=== PATIENT | female | born 1945 | race Caucasian/White ===

== ENCOUNTER 2020-03-15 13:31 | Outpatient (CLI) | payer MEDICARE, SELFPAY ==
[2020-03-15 13:48] LABS: Basophils Absolute Auto 0.1 K/mm3 (0.0-0.1); Eosinophils Absolute Auto 0.2 K/mm3 (0-0.3); Eosinophils Percent Auto 3.7 % (0-4.4); Hematocrit 44.9 % (37.0-47.0); Hemoglobin 14.1 g/dL (12.0-15.0); Immature Granulocyte Absolute 0.04 K/mm3 (0.00-0.031); Immature Granulocyte Percent A 0.8 % (0-0.5); Lymphocytes Absolute Auto 1.31 K/mm3 (0.9-3.2); Lymphocytes Percent Auto 26.6 % (18.3-44.2); Mean Corpuscular HGB Conc 31.4 g/dl (32-36); Mean Corpuscular Hemoglobin 29.4 pg (26-34); Mean Corpuscular Volume 93.7 fl (80-100); Monocytes Absolute Auto 0.5 K/mm3 (0.1-0.6); Monocytes Percent Auto 9.7 % (2.6-8.5); Neutrophils Absolute Auto 2.9 K/mm3 (1.3-6.7); Neutrophils Percent Auto 58.2 % (45.5-73.1); Platelet Count Result 152 k/mm3 (150-375); Red Blood Count 4.79 M/mm3 (4.2-5.4); White Blood Count 4.9 K/mm3 (4.5-10.0)
== END 2020-03-15 13:32 | disposition home or self-care (01) ==
LOC: ANHLAB 13:33
PROVIDERS: PCP Internal Medicine; Visit Provider Internal Medicine Hematology & Oncology
DX: K74.60 Unspecified cirrhosis of liver (principal)
CPT/HCPCS: 36415; 85025

== ENCOUNTER 2023-04-23 14:16 | Outpatient (CLI) | payer MEDICARE, SELFPAY ==
[2023-04-23 14:33] LABS: Basophils Percent Auto 0.6 % (0.2-1.2); Eosinophils Absolute Auto 0.1 K/mm3 (0-0.3); Hematocrit 44.7 % (37.0-47.0); Hemoglobin 14.1 g/dL (12.0-15.0); Immature Granulocyte Absolute 0.02 K/mm3 (0.00-0.031); Immature Granulocyte Percent A 0.4 % (0-0.5); Immature Platelet Fraction Pct 2.5 % (0.9-11.2); Lymphocytes Absolute Auto 0.68 K/mm3 (0.9-3.2); Lymphocytes Percent Auto 13.9 % (18.3-44.2); Mean Corpuscular HGB Conc 31.5 g/dl (32-36); Mean Corpuscular Hemoglobin 30.5 pg (26-34); Mean Corpuscular Volume 96.5 fl (80-100); Mean Platelet Volume 9.2 fl (7.4-10.4); Monocytes Absolute Auto 0.4 K/mm3 (0.1-0.6); Monocytes Percent Auto 7.2 % (2.6-8.5); Neutrophils Absolute Auto 3.8 K/mm3 (1.3-6.7); Neutrophils Percent Auto 76.9 % (45.5-73.1); Platelet Count Result 121 k/mm3 (150-375); Red Blood Count 4.63 M/mm3 (4.2-5.4); Red Cell Distribution Width 14.1 % (11.5-14.5); White Blood Count 4.9 K/mm3 (4.5-10.0)
[2023-04-23 14:36] LABS: Blood Urea Nitrogen 17 mg/dL (8-26); Carbon Dioxide 23 mmol/L (22-30); Chloride 103 mmol/L (98-109); Estimated Glomerular Filt Rate > 60; Glucose 122 mg/dL (70-105); Potassium 4.2 mmol/L (3.5-4.9); Sodium 141 mmol/L (138-146)
[2023-04-23 16:35] LABS: Alanine Aminotransferase 36 U/L (6-35); Alkaline Phosphatase 79 U/L (38-126); Anion Gap 7 mmol/L (8-16); Aspartate Amino Transferase 42 U/L (14-36); Bilirubin,Total 0.8 mg/dL (0.2-1.3); Blood Urea Nitrogen 18 mg/dL (7-17); Calcium 9.3 mg/dL (8.4-10.2); Carbon Dioxide 24 mmol/L (22-30); Chloride 106 mmol/L (98-107); Estimated Glomerular Filt Rate > 60; Glucose 125 mg/dL (65-110); Potassium 4.2 mmol/L (3.4-5.0); Sodium 137 mmol/L (137-145)
== END 2023-04-23 14:17 | disposition home or self-care (01) ==
LOC: ANHLAB 14:19
PROVIDERS: PCP Internal Medicine; Visit Provider Internal Medicine Hematology & Oncology
DX: D69.59 Other secondary thrombocytopenia (principal)
CPT/HCPCS: 36415; 80047; 80053; 85025; 85055

== ENCOUNTER 2023-12-10 08:28 | Outpatient (CLI) | payer MEDICARE, SELFPAY ==
[2023-12-10 08:53] LABS: Basophils Percent Auto 0.8 % (0.2-1.2); Eosinophils Absolute Auto 0.1 K/mm3 (0-0.3); Eosinophils Percent Auto 2.9 % (0-4.4); Hematocrit 43.6 % (37.0-47.0); Hemoglobin 13.7 g/dL (12.0-15.0); Immature Granulocyte Absolute 0.02 K/mm3 (0.00-0.031); Immature Granulocyte Percent A 0.4 % (0-0.5); Lymphocytes Absolute Auto 1.49 K/mm3 (0.9-3.2); Lymphocytes Percent Auto 30.4 % (18.3-44.2); Mean Corpuscular HGB Conc 31.4 g/dl (32-36); Mean Corpuscular Hemoglobin 31.2 pg (26-34); Mean Corpuscular Volume 99.3 fl (80-100); Mean Platelet Volume 9.1 fl (7.4-10.4); Monocytes Absolute Auto 0.4 K/mm3 (0.1-0.6); Monocytes Percent Auto 8.8 % (2.6-8.5); Neutrophils Absolute Auto 2.8 K/mm3 (1.3-6.7); Neutrophils Percent Auto 56.7 % (45.5-73.1); Platelet Count Result 155 k/mm3 (150-375); Red Blood Count 4.39 M/mm3 (4.2-5.4); Red Cell Distribution Width 13.8 % (11.5-14.5); White Blood Count 4.9 K/mm3 (4.5-10.0)
[2023-12-10 08:55] LABS: Blood Urea Nitrogen 21 mg/dL (8-26); Carbon Dioxide 21 mmol/L (22-30); Chloride 109 mmol/L (98-109); Estimated Glomerular Filt Rate 53; Glucose 155 mg/dL (70-105); Ionized Calcium (POC) 1.19 mmol/L (1.11-1.31); Potassium 4.4 mmol/L (3.5-4.9); Sodium 141 mmol/L (138-146)
[2023-12-10 09:58] LABS: Alanine Aminotransferase 37 U/L (6-35); Albumin Level 3.9 g/dL (3.5-5.1); Alkaline Phosphatase 62 U/L (38-126); Anion Gap 10 mmol/L (4-12); Aspartate Amino Transferase 43 U/L (14-36); Bilirubin,Total 0.6 mg/dL (0.2-1.3); Blood Urea Nitrogen 22 mg/dL (7-17); Carbon Dioxide 21 mmol/L (22-30); Chloride 108 mmol/L (98-107); Estimated Glomerular Filt Rate 60; Glucose 151 mg/dL (65-110); Potassium 4.3 mmol/L (3.4-5.0); Sodium 139 mmol/L (137-145)
== END 2023-12-10 08:29 | disposition home or self-care (01) ==
LOC: ANHLAB 08:29
PROVIDERS: PCP Internal Medicine; Visit Provider Internal Medicine Hematology & Oncology
DX: D69.59 Other secondary thrombocytopenia (principal)
CPT/HCPCS: 36415; 80047; 80053; 85025; 85055

== ENCOUNTER 2024-02-27 10:00 | Outpatient (RCR) | payer MEDICARE, SELFPAY ==
--- NOTE | 2024-01-02 12:48 | OPREHPOC ---
Outpatient Therapy Plan of Care This is a Multidisciplinary Plan of Care that may contain components documented by all disciplines (PT, OT, and ST.) PT Problem 1 PT Problem #1 Knowledge Deficit PT Goal 1 Goal / Goal Update Cannon with HEP Target Visit 4 PT Goal 2 Goal / Goal Update Report no pain greater than 3/10 for 2 consecutive weeks Target Visit 8 PT Problem 2 PT Problem #2 Impaired Range of Motion PT Goal 1 Goal / Goal Update Achieve 160 degrees of right shoulder flexion to improve functional reach Target Visit 8 PT Goal 2 Goal / Goal Update Improve R shoulder external rotation to 80 degrees to improve functional dressing and self care Target Visit 8 PT Problem 3 PT Problem #3 Impaired Strength PT Goal 1 Goal / Goal Update Improve right shoulder flexion strength to 4/5 to improve active reaching ability Target Visit 8 PT Goal 2 Goal / Goal Update Improve right shoulder external rotation strength to 4/5 to improve shoulder stability for ADL performance Target Visit 8
--- NOTE | 2024-01-02 12:48 | PTOPEVAL1 ---
Assessment and note entered by Guillermo Moore, PT Evaluation Information Assessment Status Evaluation Diagnosis Primary OA of right shoulder ICD-10 Condition Codes (PT) M25.511 Onset July 2023 Subjective Information Reports that she had a fall back in May but unsure if that is what caused shoulder pain. She is right handed. She gets pain all the time and has pain all the way into the elbow. Uses a CPAP and has to sleep on her left side. Having a lot of trouble doing anything in which she has to reach overhead. Feels a lot of popping and pain in the shoulder when reaching and lifting. Pain with dressing. Reported Pain Level Pain Score 3: Self Report Assessment PT Clinical Summary Patient presents with signs and symptoms consistent with progressive shoulder OA limiting active reach and gross ROM. Weakness noted throughout functional mobility and pain elicited with multidirectional motion. Patient will benefit form skilled therapy to address motion disability and improve functional strength. Plan of Care Interventions Hot Pack/Cold Pack,Manual Therapy,Neuro Re- education,Therapeutic Activities,Therapeutic Exercise PT Services Indicated Yes Treatment Frequency and 2x/week for 8 visits Duration These treatments will address the objective and functional deficits as defined above. The patient will be advanced safely and appropriately in order for the patient to progress towards his/her prior level of function. Additional exercises will be introduced and as well as a comprehensive home exercise program upon discharge, if needed, ?to ensure carryover of functional gains achieved in the clinic. This treatment plan has been reviewed and agreement upon by the patient.
--- NOTE | 2024-01-09 14:20 | PCPTNOTE ---
Pt. did not show for therapy this date. Called pt. and pt. reported she forgot she had therapy this date with family in town.
--- NOTE | 2024-01-28 11:29 | PCPTNOTE ---
Patient canceled therapy this date stating she will be out of town.
--- NOTE | 2024-02-17 08:39 | PCPTNOTE ---
Patient called to cancel therapy due to weather this date.
--- NOTE | 2024-02-27 10:42 | OPREHPOC ---
Outpatient Therapy Plan of Care This is a Multidisciplinary Plan of Care that may contain components documented by all disciplines (PT, OT, and ST.) PT Problem 1 PT Problem #1 Knowledge Deficit PT Goal 1 Goal / Goal Update Starr with HEP Target Visit 4 Progress Met PT Goal 2 Goal / Goal Update Report no pain greater than 3/10 for 2 consecutive weeks Target Visit 8 Progress Not Met PT Problem 2 PT Problem #2 Impaired Range of Motion PT Goal 1 Goal / Goal Update Achieve 160 degrees of right shoulder flexion to improve functional reach Target Visit 8 Progress Partially Met PT Goal 2 Goal / Goal Update Improve R shoulder external rotation to 80 degrees to improve functional dressing and self care Target Visit 8 Progress Not Met PT Problem 3 PT Problem #3 Impaired Strength PT Goal 1 Goal / Goal Update Improve right shoulder flexion strength to 4/5 to improve active reaching ability Target Visit 8 Progress Not Met PT Goal 2 Goal / Goal Update Improve right shoulder external rotation strength to 4/5 to improve shoulder stability for ADL performance Target Visit 8 Progress Not Met
--- NOTE | 2024-02-27 10:42 | PTOPDC ---
Assessment and note entered by Guillermo Moore, PT Discharge Information Assessment Status Discharge Diagnosis Primary OA of right shoulder ICD-10 Condition Codes (PT) Pain in right shoulder M25.511 Onset July 2023 Subjective Information Reports that overall, she has not seen immense improvement in her shoulder pain. Followed up with MD again and they discussed that she does have severe OA of shoulder and was not optimistic that it would help. She is aware of exercises that she can do to work the stability of the shoulder while avoiding painful motions. Reported Pain Level Pain Score 2: Self Report Assessment PT Clinical Summary Patient has seen some minimal improvement tin ROM. At this time with motion and palpation. Significant arthritis is present limiting continued functional ROM. Patient is to be discharged at this time with anticipation of moving forward with orthopedic surgery. Plan of Care PT Services Indicated Yes
== END 2024-02-27 11:17 | disposition home or self-care (01) ==
LOC: ANHGOSHPT 10:00
PROVIDERS: PCP Internal Medicine; Visit Provider Orthopaedic Surgery
DX: M19.011 Primary osteoarthritis, right shoulder (principal)
CPT/HCPCS: 97014; 97110; 97140; 97161; G0283

== ENCOUNTER 2024-03-10 14:59 | Outpatient (CLI) | payer MEDICARE, SELFPAY ==
--- NOTE | ~2024-03-10 | CT_ITS ---
EXAMINATION: CT shoulder RT wo con DATE: 03/10/2024 15:45 INDICATION: Right shoulder osteoarthritis. Preoperative planning. TECHNIQUE: Computed tomography (CT) of the right shoulder was performed without intravenous contrast. Automated exposure control and iterative reconstruction technique were employed. The dose-length pro duct was 691.66 mGy-cm. COMPARISON: Right shoulder radiographs 11/11/2023 FINDINGS: Bone alignment is normal. No fracture. There is severe osteoarthritis of glenohumeral joint including bone volume loss of the glenoid. There is a large glenohumeral joint effusion with loose b odies. There is severe acromioclavicular joint osteoarthritis. IMPRESSION: 1. Severe osteoarthritis of glenohumeral joint and acromioclavicular joint. 2. Large glenohumeral joint effusion with loose bodies. Reviewed, dictated and finalized at location A. [facility]
--- OUTSIDE RECORDS SUMMARY | 2024-03-10 15:52 | XMS_ITS | Continuity of Care Document ---
Author Organization [facility] Address [address] [place] [address] [address] [place] [address] Phone Care Team Providers Care Usability Engineer Name Role Phone Jurgen Diallo Unavailable Unavailable Procedures Procedure Date Post-op Follow-up Visit Post-op Follow-up Visit Remove Cataract, Insert Lens Eye Exam, New Patient Echo Exam Of Eye Advance Directives Directive Yes / No Effective Date File Name No Information Encounters Encounter Description Practice Location Reason(s) For Visit Diagnoses Date Provider Providers Copied on Encounter [facility], [address] [place] [address] [address], [place], [place], [id number], tel:[phone] [facility] No Information [address] Seaman. [address] [place] [address] , [address], [place], [place], [facility], . tel:[phone] Referring Provider: Fernie Byers, [address] [place] [address], [facility]. tel:[phone] [facility], [address] [place] [address] [address], [place], [place], [id number], tel:[phone] [facility] No Information [address] Se[address]. [address] [place] [address] , [address], [place], [place], [facility], [place]. tel:[phone] Referring Provider: Fernie Byers, [address] [place] [address], [facility]. tel:[phone] [facility], [address] [facility] [address], [place], [place], [id number], tel:[phone] [facility] No Information [facility] Edward. [address] [facility] , [address], [place], [place], [facility], . tel:[phone] Referring Provider: Fernie Byers, [address] [place] [address], [facility]. tel:[phone] [facility], [address], [place], [place], [id number], tel:[phone] [facility] No Information [facility] [place] [facility] , [address], [place], [place], [facility], . tel:[phone] Referring Provider: Fernie Byers, [address] [place] [address], [facility]. tel:[phone] Family History Family Member Type Diagnosis Age At Onset No Information Payers Payer name Insurance type Covered green party ID Authoriza tion(s) No Information Social History [...]
--- OUTSIDE RECORDS SUMMARY | 2024-03-10 15:52 | XMS_ITS | Referral Summary ---
Author Organization [facility] Address [address] [place] [address] Care Team Providers Care Breastfeeding Program Coordinator Name Role Phone Soy Joyce MD Primary Care Provider Source Comments [facility],non-owned Affiliates and Associated Physician Practices is amultiple site organization consisting of ambulatory clinics and hospital sitesin [place], [place], [place] and [place]. This disclosure is being madepursuant to the Care Everywhere program and may not contain all information available regarding this patient. 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) ; Metabolic dysfunction-associated steatohepatitis (MASH); Liver lesion 03/04/2024 Travel 03/04/2024 11:00 AM EQUIPMENT TECHNICIAN Office Visit [facility] - [place] [address] [facility], [place] [address] Anastasia Gandhi APRN-CNP 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 Alwaysverify current medications with the patient. Medication Sig Dispensed Refills Start Date End Date Status levothyroxine (SYNTHROID) 150 MCG tablet Take 100 mcg by mouth daily before breakfast 06/12/2020 Active venlafaxine XR 24hr (EFFEXOR XR) 75 MG capsule venlafaxine ER 75 mg capsule,extended release 24 hr TAKE 1 CAPSULE BY MOUTH EVERY DAY. CONTACT CLINIC IF CHANGE IN MOOD OR BEHAVIOR. NO ALCOHOL DRIVING OR WITH SEDATING MEDICATIONS Active rosuvastatin (Crestor) 20 MG tablet Take 1 (one) tablet by mouth once daily 03/31/2021 Active diclofenac sodium EC (Voltaren) 75 MG tablet Take 1 (one) tablet by mouth 2 times daily Active Multiple Vitamins-Mineral s (WOMENS MULTI VITAMIN & MINERAL PO) Take by mouth once daily Active olmesartan (Benicar) 5 MG tablet Take 1 (one) tablet by mouth once daily 12/30/2023 Active Ozempic, 1 MG/DOSE, 4 MG/3ML pen Inject 1 (one) mg subcutaneously every 7 days 11/24/2023 Active levothyroxine (Synthroid) 100 MCG tablet Take 1 (one) tablet by mouth once daily Active CRANBERRY PO Take 500 mg by mouth once daily Active metoprolol succinate XL 24hr (TOPROL XL) 25 MG tablet Take 2 (two) tablets by mouth once daily 5 Discontinue d(List Clean-Up) Multiple Vitamin (MULTIVITAMIN ADULT PO) Take 1 tablet by mouth once daily 5 Discontinue d(List Clean-Up) albuterol HFA (Proventil; Ventolin; Proair) 108 (90 Base) MCG/ACT inhaler INL 2 PFS PO Q 4 H PRN 5 Discontinue d(List Clean-Up) Ozempic, 0.25 or 0.5 MG/DOSE, 2 MG/1.5ML pen Inject 0.5 (one-half) mg subcutaneously every 7 days 03/11/2022 5 Discontinue d(List Clean-Up) LORazepam (Ativan) 0.5 MG tablet Take 1 (one) tablet by mouth every 8 hours as needed for Anxiety 5 Discontinue d(List Clean-Up) acetaminophen (Tylenol) 500 MG tablet Take 1 (one) tablet by mouth as needed for Fever or Pain Maximum allowable Acetaminophen amount = 4 Grams (4000 mg) / 24 hours. 5 Discontinue d(List Clean-Up) Esomeprazole Magnesium (NEXIUM PO) Take by mouth as needed Discontinue d(List Clean-Up) Cholecalciferol (vitamin D3) 1.25 MG (79165 UT) capsule Take 1 (one) capsule by mouth once daily 5 Discontinue d(List Clean-Up) cyclobenzaprine (Flexeril) 10 MG tablet Take 1 (one) tablet by mouth once daily as needed for Muscle Spasms 5 Discontinue d(List Clean-Up) lisinopril (Prinivil; Zestril) 2.5 MG tablet Take 1 (one) tablet by mouth once daily 5 Discontinue d(List Clean-Up) predniSONE (Deltasone) 10 MG tablet Take 1 (one) tablet by mouth 2 times daily 08/26/2023 5 Discontinue d(List Clean-Up) montelukast (Singulair) 10 MG tablet Take 1 (one) tablet by mouth once daily 5 Discontinue d(List Clean-Up) Active Problems Problem Noted Date Diagnosed Date 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/10/2021 Overview (11/20/2021): 10/11/22 Fibroscan CAP 293, LSM 27.0 kPa Cataract 05/10/2021 Deep venous thrombosis 05/10/2021 Diabetes mellitus 05/10/2021 Hypercholesterolemia 05/10/2021 Venous insufficiency 06/18/2018 Obstructive sleep apnea syndrome 05/19/2018 Arthritis 02/16/2018 Gastroesophageal reflux disease 11/06/2017 Hypothyroidism 11/06/2017 Primary hypertension 07/23/2017 Anxiety 06/06/2017 Chronic depression 01/30/2016 Social History Tobacco Use Types Packs/Day Years Used Date Smoking Tobacco: Never Smokeless Tobacco: Never Tobacco Cessation:Counseling Given: Not Answered Alcohol Use Standard Drinks/Week Comments Never 0 (1 standard drink = 0.6 oz pur e alcohol) Sex and Gender Information Value Date Recorded Sex Assigned at Not on file Gender Identity Not on file Sexual Orientation Not on file Last Filed Vital Signs Vital Sign Reading Time Taken Comments Blood Pressure 133/72 03/04/2024 10:58 AM EQUIPMENT TECHNICIAN Pulse 92 03/04/2024 10:58 AM EQUIPMENT TECHNICIAN Temperature 37.2 ??C (99 ??F) 03/04/2024 10: 58 AM EQUIPMENT TECHNICIAN Respiratory Rate 18 02/13/2023 10:1 3 AM EQUIPMENT TECHNICIAN Oxygen Saturation 95% 03/04/2024 10: 58 AM EQUIPMENT TECHNICIAN Inhaled Oxygen Concentration - - Weight 100.1 kg (220 lb 9.6 oz) 10:58 AM EQUIPMENT TECHNICIAN Height 165.1 cm (5' 5 ) 03/04/2024 10:5 8 AM EQUIPMENT TECHNICIAN Body Mass Index 36.71 03/04/2024 10:58 AM EQUIPMENT TECHNICIAN Plan of Treatment Not on file Goals Goal Patient Goal Type Associated Problems Recent Progress Patient-Stated? Author Medication Management General On track( 10:55 AM EQUIPMENT TECHNICIAN) No Lana Shultz, RN Note: Expected end date: Ongoing Interventions: Take all medications as prescribed Let your doctor know right away about any changes in your medications Make sure to request a refill of your medication at least one week prior to your last dose Safety General On track( 11:03 AM EQUIPMENT TECHNICIAN) No Neida Javed RN Note: Expected end date: ongoing Interventions: Your nurse will assess your risk for falls/injury each visit Use appropriate and safe transfer methods Make sure appropriate safety devices are available and within reach Be aware of medications that could predispose you to falling Wear non-skid/rubber sole footwear Wear glasses/hearing aid Keep personal items within easy reach Keep walking paths clutter free and clear Maintain an unobstructed path to the bathroom Procedures Procedure Name Priority Date/Time Associated Diagnosis Comments PT-INR [facility] Routine 03/04/2024 12:25 PM EQUIPMENT TECHNICIAN 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) Liver lesion COMPREHENSIVE METABOLIC PANEL Routine 03/04/2024 12:25 PM EQUIPMENT TECHNICIAN 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) Liver lesion CBC W AUTO DIFFERENTIAL Routine 03/04/2024 12:25 PM EQUIPMENT TECHNICIAN 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) Liver lesion ALPHA FETOPROTEIN BLOOD TUMOR MARKER Routine 03/04/2024 12:25 PM EQUIPMENT TECHNICIAN 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) Thrombocytopenia, unspecified (HCC) Metabolic syndrome US ABDOMEN LIMITED Routine 03/04/2024 10 :33 AM EQUIPMENT TECHNICIAN 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) MICROALB/CREAT RATIO URINE (EXTERNAL RESULT ENTRY) Routine 11/27/2022 9:45 AM CDT HEMOGLOBIN A1C (EXTERNAL RESULT ENTRY) Routine 11/27/2022 9:45 AM CDT from Last 3 Months or Most Recently Relevant to Health Maintenance Results * PT-INR [facility] (03/04/2024 12:25 PM EQUIPMENT TECHNICIAN) PT 13.6 12.1 - 14.8 Seconds 03/04/2024 12:59 PM [facility] INR 1.1 See Comment 03/04/2024 12:59 PM [facility] Comment:The suggested therap eutic range for standard coumadin (warfarin) therapy is an INR of 2.0-3.0. For high-risk patients (Mechanical Mitral Valve Prosthesis, etc.), the suggested prophylactic therapeutic range is an INR of 2.5-3.5. Blood BLOOD SPECIMEN / Unknown Lab Venipuncture / Unknown 03/04/2024 12:25 PM EQUIPMENT TECHNICIAN 03/04/2024 12:34 PM EQUIPMENT TECHNICIAN Anastasia Gandhi [facility] COAGU LATION ORDERABLES Performing Organization Address [facility]/ZIP Co de Phone Number [address] [address], [facility] [phone] * ALPHA FETOPROTEIN BLOOD TUMOR MARKER (03/04/2024 12:25 PM EQUIPMENT TECHNICIAN) [facility] Alpha-Fetoprote in Tumor Marker 6.7 <=8.3 ng/mL 03/04/2024 1:22 PM [facility] Comment: AFP values will vary depending on testing procedure used. Results are not comparable across different methods. AFP values obtained by [facility] using an Holland Alinity Immunoassay. Blood BLOOD SPECIMEN / Unknown Lab Venipuncture / Unknown 03/04/2024 12:25 PM EQUIPMENT TECHNICIAN 03/04/2024 12:32 PM EQUIPMENT TECHNICIAN [facility]ast[facility] CHEMI STRY ORDERABLES Performing Organization Address [facility] Co de Phone Number [address] [address], [facility] [phone] * (ABNORMAL) CBC WITH DIFFERENTIAL (03/04/2024 12:25 PM EQUIPMENT TECHNICIAN) [facility] WBC 5.5 4.0 - 10.7 x10E9/L 03/04/2024 12:39 PM EQUIPMENT TECHNICIAN [facility] RBC Count 4.76 3.90 - 5.20 x10E12/L 03/04/2024 12:39 PM [facility] Hemoglobin 14.6 11.9 - 15.8 g/dL 03/04/2024 12:39 PM [facility] Hematocrit 45.8 34.8 - 46.1 % 03/04/2024 12:39 PM [facility] MCV 96.2 80.0 - 98.0 fL 03/04/2024 12:39 PM [facility] MCH 30.7 26.7 - 33.6 pg 03/04/2024 12:39 PM [facility] MCHC 31.9 31.7 - 36.3 g/dL 03/04/2024 12:39 PM [facility] RDW-CV 13.7 11.3 - 14.8 % 03/04/2024 12:39 PM [facility] Platelet Count 149(L) 150 - 420 x10E9/L 03/04/2024 12:39 PM [facility] MPV 9.4 7.8 - 11.4 fL 03/04/2024 12:39 PM [facility] Neutrophil % 60.8 41.0 - 74.0 % 03/04/2024 12:39 PM [facility] Lymphocyte % 26.5 17.0 - 47.0 % 03/04/2024 12:39 PM [facility] Monocyte % 9.6 3.0 - 11.0 % 03/04/2024 12:39 PM [facility] Eosinophil % 2.2 0.0 - 7.0 % 03/04/2024 12:39 PM [facility] Basophil % 0.7 0.0 - 1.6 % 03/04/2024 12:39 PM [facility] Immature Granulocytes % 0.2 0.0 - 1.0 % 03/04/2024 12:39 PM [facility] Neutrophil Absolute 3.37 1.60 - 7.50 x10E9/L 03/04/2024 12:39 PM [facility] Lymphocyte Absolute 1.47 1.00 - 4.40 x10E9/L 03/04/2024 12:39 PM [facility] Monocyte Absolute 0.53 0.15 - 1.00 x10E9/L 03/04/2024 12:39 PM [facility] Eosinophil Absolute 0.12 0.00 - 0.60 x10E9/L 03/04/2024 12:39 PM [facility] Basophil Absolute 0.04 0.00 - 0.13 x10E9/L 03/04/2024 12:39 PM [facility] Blood BLOOD SPECIMEN / Unknown Lab Venipuncture / Unknown 03/04/2024 12:25 PM EQUIPMENT TECHNICIAN 03/04/2024 12:32 PM EQUIPMENT TECHNICIAN Anastasia Gandhi LONGWALL SHEARER OPERATOR-MESSENGER [facility] LAB - HEMAT OLOGY ORDERABLES [facility] [address] [place] [address], [facility] [phone] * (ABNORMAL) COMPREHENSIVE METABOLIC PANEL (03/04/2024 12:25 PM EQUIPMENT TECHNICIAN) BUN 16 7 - 26 mg/dL 03/04/2024 12:59 PM [facility] Creatinine 0.92 0.56 - 0.96 mg/dL 03/04/2024 12:59 PM [facility] Sodium 141 136 - 145 mmol/L 03/04/2024 12:59 PM [facility] Potassium 4.6(H) 3.5 - 4.5 mmol/L 03/04/2024 12:59 PM [facility] Chloride 106 98 - 107 mmol/L 03/04/2024 12:59 PM [facility] CO2 26 22 - 29 mmol/L 03/04/2024 12:59 PM [facility] Glucose 110(H) 70 - 99 mg/dL 03/04/2024 12:59 PM [facility] Calcium 9.7 8.4 - 10.2 mg/dL 03/04/2024 12:59 PM [facility] Protein Total 7.5 6.0 - 8.3 g/dL 03/04/2024 12:59 PM [facility] Albumin 4.0 3.4 - 5.0 g/dL 03/04/2024 12:59 PM [facility] Bilirubin Total 0.6 0.2 - 1.2 mg/dL 03/04/2024 12:59 PM [facility] Alkaline Phosphatase 51 40 - 150 U/L 03/04/2024 12:59 PM [facility] ALT 26 5 - 55 U/L 03/04/2024 12:59 PM [facility] AST 30 5 - 34 U/L 03/04/2024 12:59 PM [facility] Anion Gap 9 6 - 16 03/04/2024 12:59 PM [facility] BUN/Creatinine Ratio 17 7 - 23 03/04/2024 12:59 PM [facility] Osmolality Calculated 294 275 - 295 mOsm/kg 03/04/2024 12:59 PM [facility] Albumin/Globulin Ratio 1.1 1.1 - 2.3 03/04/2024 12:59 PM [facility] eGFR by CKD-EPI 63(L) >=90 mL/min/1.7 3 m2 03/04/2024 12:59 PM [facility] Blood BLOOD SPECIMEN / Unknown Lab Venipuncture / Unknown 03/04/2024 12:25 PM EQUIPMENT TECHNICIAN 03/04/2024 12:32 PM EQUIPMENT TECHNICIAN Anastasia Gandhi [employer] SHE[employer] OPERATOR-MESSENGER [facility] LAB - CHEMI STRY ORDERABLES [facility] [address] [place] [address], [facility] [phone] * US ABDOMEN LIMITED (03/04/2024 10:33 AM EQUIPMENT TECHNICIAN) Anatomical Region Laterality Modality Abdomen Ultrasound 03/04/2024 10:4 5 AM EQUIPMENT TECHNICIAN Impressions 03/04/2024 11:22 AM EQUIPMENT TECHNICIAN Impression: 1.Liver Visualization Score A: No or minimal limitations. 2.US-2 Subthreshold. Repeat surveillance US in 3-6 months. 3.Redemonstrated hepatic cirrhosis with sequela of portal hypertension. Report drafted by Jeff Leggett MD (resident). I, Lila Pool MD have personally reviewed and interpreted this examination/study. > Interpreting Provider: Lila Pool MD on 03/04/2024 11:22 AM Narrative 03/04/2024 11:22 AM EQUIPMENT TECHNICIAN PROCEDURE: ??US ABDOMEN LIMITED DATE/TIME OF EXAM: ??03/04/2024 10:33 AM CLINICAL INFORMATION: None relevant/not provided if blank. 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 Findings: Liver Visualization Score: No or minimal limitations in liver visualization Liver Morphology: The liver has a coarse echotexture and nodular surface. Liver Observations: 6 cm measuring hyperechoic lesion within the hepatic segment 2/3 (image 2365).. Main Portal Vein: Color Doppler evaluation demonstrates patency of the main portal vein. Hepatic Veins: Color Doppler evaluation demonstrates patency of the hepatic veins. Bile Ducts: The common bile duct is nondilated, measuring 5.5 mm. No intrahepatic or extrahepatic biliary dilation. Gallbladder: The gallbladder is absent. Ascites: No ascites is present. Spleen: The spleen measures 11.6 cm in length. Pancreas: The visible pancreas is normal in echogenicity. Right Kidney: The right kidney measures 9.5 cm in length. Limited views of the right kidney reveal no evidence of nephrolithiasis or hydronephrosis. ??No discrete mass identified. Other: None Procedure Note Lila Pool MD - 03/04/2024 PROCEDURE: US ABDOMEN LIMITED DATE/TIME OF EXAM: 03/04/2024 10:33 AM CLINICAL INFORMATION: None relevant/not provided if blank. 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 Findings: Liver Visualization Score: No or minimal limitations in liver visualization Liver Morphology: The liver has a coarse echotexture and nodular surface. Liver Observations: 6 cm measuring hyperechoic lesion within the hepatic segment 2/3 (image 2365).. Main Portal Vein: Color Doppler evaluation demonstrates patency of the main portal vein. Hepatic Veins: Color Doppler evaluation demonstrates patency of the hepatic veins. Bile Ducts: The common bile duct is nondilated, measuring 5.5 mm. No intrahepatic or extrahepatic biliary dilation. Gallbladder: The gallbladder is absent. Ascites: No ascites is present. Spleen: The spleen measures 11.6 cm in length. Pancreas: The visible pancreas is normal in echogenicity. Right Kidney: The right kidney measures 9.5 cm in length. Limited views of the right kidney reveal no evidence of nephrolithiasis or hydronephrosis. No discrete mass identified. Other: None Impression: 1.Liver Visualization Score A: No or minimal limitations. 2.US-2 Subthreshold. Repeat surveillance US in 3-6 months. 3.Redemonstrated hepatic cirrhosis with sequela of portal hypertension. Report drafted by Jeff Leggett MD (resident). I, Lila Pool MD have personally reviewed and interpreted this examination/study. > Interpreting Provider: Lila Pool MD on 03/04/2024 11:22 AM Anastasia Jannie Gandhi LONGWALL SHEARER OPERATOR-MESSENGER COPY US ORDERABL ES * MICROALB/CREAT RATIO URINE (EXTERNAL RESULT ENTRY) (11/27/2022 9:45 AM CDT) Microalb/Creat Ratio (EXTERNAL RESULT) 84.4 mg/g OTHER LAB Urine URINE / Unknown 11/27/2022 9 :45 AM CDT Historical Provider LAB - URINE CHEMI STRY ORDERABLES OTHER LAB * HEMOGLOBIN A1C (EXTERNAL RESULT ENTRY) (11/27/2022 9:45 AM CDT) Hemoglobin A1c (EXTERNAL RESULT) 5.6 % OTHER LAB Blood BLOOD SPECIMEN / Unknown 11/27/2022 9:45 AM CDT Historical Provider LAB - CHEMISTRY O RDERABLES OTHER LAB from Last 3 Months or Most Recently Relevant to Health Maintenance Care Teams Breastfeeding Program Coordinator Relationship Specialty Start Date End Date Soy Joyce MD [address] [facility] [address] [place] [address] PCP - General 02/04/21
--- OUTSIDE RECORDS SUMMARY | 2024-03-10 15:52 | XMS_ITS | Clinical Summary ---
Author Organization [facility] Address [address] [facility] [place] [address] Care Team Providers Care Panelboard Tank Pumper Name Role Phone Soy Joyce MD Primary Care Provider Source Comments [facility],non-owned Affiliates and Associated Physician Practices is amultiple site organization consisting of ambulatory clinics and hospital sitesin [place], [place], [place]. This disclosure is being madepursuant to the Care Everywhere program and may not contain all information available regarding this patient. Last updated 17.[facility] Allergies No known active allergies Medications * [...] 2 (two) tablets by mouth once daily Discontinue d(List Clean-Up) Multiple Vitamin (MULTIVITAMIN ADULT PO) Take 1 tablet by mouth once daily 5 Discontinue d(List Clean-Up) albuterol HFA (Proventil; Ventolin; Proair) 108 (90 Base) MCG/ACT inhaler INL 2 PFS PO Q 4 H PRN Discontinue d(List Clean-Up) Ozempic, 0.25 or 0.5 MG/DOSE, 2 MG/1.5ML pen Inject 0.5 (one-half) mg subcutaneously every 7 days 03/11/2022 Discontinue d(List Clean-Up) LORazepam (Ativan) 0.5 MG tablet Take 1 (one) tablet by mouth every 8 hours as needed for Anxiety Discontinue d(List Clean-Up) acetaminophen (Tylenol) 500 MG tablet Take 1 (one) tablet by mouth as needed for Fever or Pain Maximum allowable Acetaminophen amount = 4 Grams (4000 mg) / 24 hours. 5 Discontinue d(List Clean-Up) Esomeprazole Magnesium (NEXIUM PO) Take by mouth as needed Discontinue d(List Clean-Up) Cholecalciferol (vitamin D3) 1.25 MG (83732 UT) capsule Take 1 (one) capsule by mouth once daily 5 Discontinue d(List Clean-Up) cyclobenzaprine (Flexeril) 10 MG tablet Take 1 (one) tablet by mouth once daily as needed for Muscle Spasms 01/23/202 5 Discontinue d(List Clean-Up) lisinopril (Prinivil; Zestril) [...] cirrhosis secondary to GARCIA 05/10/2021 Overview (11/20/2021): 11/20/21 Fibroscan CAP 293, LSM 27.0 kPa Cataract 05/10/2021 Deep venous thrombosis 05/10/2021 Diabetes mellitus 05/10/2021 Hypercholesterolemia 05/10/2021 Venous insufficiency 06/18/2018 Obstructive sleep apnea syndrome 05/19/2018 Arthritis 02/16/2018 Gastroesophageal reflux disease 11/06/2017 Hypothyroidism 11/06/2017 Primary hypertension 07/23/2017 Anxiety 06/06/2017 Chronic depression 01/30/2016 Encounters Date Type Department Care Team Description 03/04/2024 11:47 AM ANESTHESIOLOGY MEDICAL DOCTOR - 03/04/2024 11:59 PM ANESTHESIOLOGY MEDICAL DOCTOR Hospital Encounter [facility] [address] [place] [address] Anastasia Gandhi, LEONARDO-[employer] IN[employer]UMENT MAKER Discharge Disposition: Home or Self Care 03/04/2024 11:00 AM ANESTHESIOLOGY MEDICAL DOCTOR Office Visit [facility] [address] [facility] [place] [address] Anastasia Gandhi, INSTALLER [employer] IN[employer]UMENT MAKER 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); Metabolic dysfunction-associated steatohepatitis (MASH); Thrombocytopenia, unspecified (HCC); Metabolic syndrome 03/04/2024 10:05 AM ANESTHESIOLOGY MEDICAL DOCTOR - 03/04/2024 11:46 AM ANESTHESIOLOGY MEDICAL DOCTOR Hospital Encounter [facility] [address] [place] [address] Anastasia Gandhi, INSTALLER [employer] IN[employer]UMENT MAKER Discharge Disposition: Home or Self Care 03/04/2024 Orders Only [facility] - [facility] [address] [facility] [place] [address] Anastasia Gandhi, LEONARDO-MARY JO 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) ; Metabolic dysfunction-associated steatohepatitis (MASH); Liver lesion 03/04/2024 Travel from Last 3 Months Social History Tobacco Use Types Packs/Day Years [...] Comments Blood Pressure 133/72 03/04/2024 10:58 AM ANESTHESIOLOGY MEDICAL DOCTOR Pulse 92 03/04/2024 10:58 AM ANESTHESIOLOGY MEDICAL DOCTOR Temperature 37.2 ??C (99 ??F) 03/04/2024 10: 58 AM ANESTHESIOLOGY MEDICAL DOCTOR Respiratory Rate 18 02/13/2023 10:1 3 AM ANESTHESIOLOGY MEDICAL DOCTOR Oxygen Saturation 95% 03/04/2024 10: 58 AM ANESTHESIOLOGY MEDICAL DOCTOR Inhaled Oxygen Concentration - - Weight 100.1 kg (220 lb 9.6 oz) 025 10:58 AM ANESTHESIOLOGY MEDICAL DOCTOR Height 165.1 cm (5' 5 ) 03/04/2024 10:5 8 AM ANESTHESIOLOGY MEDICAL DOCTOR Body Mass Index 36.71 03/04/2024 10:58 AM ANESTHESIOLOGY MEDICAL DOCTOR Plan of Treatment Health Maintenance Due Date Last Done Comments BONE DENSITY TESTING 1943 DTAP/TDAP/TD VACCINES (1 - Tdap) 1962 PNEUMOCOCCAL VACCINE 50+ (1 of 2 - PCV) 1962 ZOSTER VACCINE (1 of 2) 1993 HEPATITIS B VACCINE (1 of 3 - Risk 3-dose series) 2003 Respiratory Syncytial Virus (RSV) Vaccine Pt: or over 60 yrs (1 - 1-dose 75+ series) 2018 DIABETES RETINOPATHY SCREENING 05/10/2021 DIABETES-FOOT EXAM WITH MONOFILAMENT 05/10/2021 DIABETES-HGB A1C 05/29/2023 11/27/2022, , 02/20/2021 COVID-19 VACCINE ( season) 2023 07/31/2021, 03/14/2021, 04/30/2020, Additional history exists INFLUENZA VACCINE (#1) 2023 , 12/11/2018, 12/01/2017, Additional history exists DEPRESSION SCREENING 02/11/2024 DIABETES - URINE PROTEIN SCREENING 02/11/2024 11/27/2022, 03/05/2022 MEDICARE AWV ? CALENDAR YEAR 2024 DIABETES-SERUM CREATININE 03/04/20252024, 11/27/2022, 03/05/2022, Additional history exists HIB VACCINE Aged Out No longer eligi ble based on patient's age to complete this topic HPV VACCINE Aged Out No longer eligi ble based on patient's age to complete this topic MENINGOCOCCAL (Group B) VACCINE Aged Out No longer eligible based on patient's age to complete this topic MENINGOCOCCAL VACCINE Aged Out No julito marisol eligible based on patient's age to complete this topic Goals Goal Patient Goal Type Associated Problems Recent Progress Patient-Stated? Author Medication Management General On track( 025 10:55 AM ANESTHESIOLOGY MEDICAL DOCTOR) No Lana Shultz RN Note: Expected end date: Ongoing Interventions: Take all medications as prescribed Let your doctor know right away about any changes in your medications Make sure to request a refill of your medication at least one week prior to your last dose Safety General On track( 025 11:03 AM ANESTHESIOLOGY MEDICAL DOCTOR) No Neida Javed, RN Note: Expected end date: ongoing Interventions: [...] Name Priority Date/Time Associated Diagnosis Comments PT-INR [facility] Routine 03/04/2024 12:25 PM ANESTHESIOLOGY MEDICAL DOCTOR 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) Liver lesion COMPREHENSIVE METABOLIC PANEL Routine 03/04/2024 12:25 PM ANESTHESIOLOGY MEDICAL DOCTOR 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) Liver lesion CBC W AUTO DIFFERENTIAL Routine 03/04/2024 12:25 PM ANESTHESIOLOGY MEDICAL DOCTOR 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) Liver lesion ALPHA FETOPROTEIN BLOOD TUMOR MARKER Routine 03/04/2024 12:25 PM ANESTHESIOLOGY MEDICAL DOCTOR 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) Thrombocytopenia, unspecified (HCC) Metabolic syndrome US ABDOMEN LIMITED Routine 03/04/2024 10 :33 AM ANESTHESIOLOGY MEDICAL DOCTOR 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) MICROALB/CREAT RATIO URINE (EXTERNAL RESULT ENTRY) Routine 11/27/2022 9:45 AM CDT HEMOGLOBIN A1C (EXTERNAL RESULT ENTRY) Routine 11/27/2022 9:45 AM CDT from Last 3 Months or Most Recently Relevant to Health Maintenance Results * PT-INR [facility] (03/04/2024 12:25 PM ANESTHESIOLOGY MEDICAL DOCTOR) PT 13.6 12.1 - 14.8 Seconds 03/04/2024 12:59 PM [facility] INR 1.1 See Comment 03/04/2024 12:59 PM [facility] Comment:The suggested therap eutic range for standard coumadin (warfarin) therapy is an INR of 2.0-3.0. For high-risk patients (Mechanical Mitral Valve Prosthesis, etc.), the suggested prophylactic therapeutic range is an INR of 2.5-3.5. Blood BLOOD SPECIMEN / Unknown Lab Venipuncture / Unknown 03/04/2024 12:25 PM ANESTHESIOLOGY MEDICAL DOCTOR 03/04/2024 12:34 PM ANESTHESIOLOGY MEDICAL DOCTOR Anastasia Gandhi INSTALLER [employer] IN[employer]UMENT MAKER LAB - [place] DEL REAL ORDERABLES [address] [address], [facility] [phone] * ALPHA FETOPROTEIN BLOOD TUMOR MARKER (03/04/2024 12:25 PM ANESTHESIOLOGY MEDICAL DOCTOR) [facility] Alpha-Fetoprote in Tumor Marker 6.7 <=8.3 ng/mL 03/04/2024 1:22 PM [facility] Comment: AFP values will vary depending on testing procedure used. Results are not comparable across different methods. AFP values obtained by [facility] using an [employer] Alinity Immunoassay. Blood BLOOD SPECIMEN / Unknown Lab Venipuncture / Unknown 03/04/2024 12:25 PM ANESTHESIOLOGY MEDICAL DOCTOR 03/04/2024 12:32 PM ANESTHESIOLOGY MEDICAL DOCTOR Anastasia Gandhi INSTALLER [employer] IN[employer]UMENT MAKER LAB - CHEMI STRY ORDERABLES Performing Organization Address [facility]/ZIP Co de Phone Number [address] [address], [facility] [phone] * (ABNORMAL) CBC WITH DIFFERENTIAL (03/04/2024 12:25 PM ANESTHESIOLOGY MEDICAL DOCTOR) [facility] WBC 5.5 4.0 - 10.7 x10E9/L 03/04/2024 12:39 PM [facility] RBC Count 4.76 3.90 - 5.20 x10E12/L 03/04/2024 12:39 PM [facility] Hemoglobin 14.6 11.9 - 15.8 g/dL 03/04/2024 12:39 PM [facility] Hematocrit 45.8 34.8 - 46.1 % 03/04/2024 12:39 PM [facility] MCV 96.2 80.0 - 98.0 fL 03/04/2024 12:39 PM [facility] MCH 30.7 26.7 - 33.6 pg 03/04/2024 12:39 PM [facility] MCHC 31.9 31.7 - 36.3 g/dL 03/04/2024 12:39 PM [facility] RDW-CV 13.7 11.3 - 14.8 % 03/04/2024 12:39 PM [facility] Platelet Count 149(L) 150 - 420 x10E9/L 03/04/2024 12:39 PM [facility] MPV 9.4 7.8 - 11.4 fL 03/04/2024 12:39 PM [facility] Neutrophil % 60.8 41.0 - 74.0 % 03/04/2024 12:39 PM [facility] Lymphocyte % 26.5 17.0 - 47.0 % 03/04/2024 12:39 PM [facility] Monocyte % 9.6 3.0 - 11.0 % 03/04/2024 12:39 PM [facility] Eosinophil % 2.2 0.0 - 7.0 % 03/04/2024 12:39 PM [facility] Basophil % 0.7 0.0 - 1.6 % 03/04/2024 12:39 PM [facility] Immature Granulocytes % 0.2 0.0 - 1.0 % 03/04/2024 12:39 PM [facility] Neutrophil Absolute 3.37 1.60 - 7.50 x10E9/L 03/04/2024 12:39 PM [facility] Lymphocyte Absolute 1.47 1.00 - 4.40 x10E9/L 03/04/2024 12:39 PM [facility] Monocyte Absolute 0.53 0.15 - 1.00 x10E9/L 03/04/2024 12:39 PM [facility] Eosinophil Absolute 0.12 0.00 - 0.60 x10E9/L 03/04/2024 12:39 PM [facility] Basophil Absolute 0.04 0.00 - 0.13 x10E9/L 03/04/2024 12:39 PM [facility] Blood BLOOD SPECIMEN / Unknown Lab Venipuncture / Unknown 03/04/2024 12:25 PM ANESTHESIOLOGY MEDICAL DOCTOR 03/04/2024 12:32 PM [facility] Anastasia Gandhi INST[employer]ER [employer] INSTRUMENT MAKER LAB - HEMAT OLOGY ORDERABLES Performing Organization Address City/State/[facility] Co de Phone Number [facility] [address] [place] [address], [facility] [phone] * (ABNORMAL) COMPREHENSIVE METABOLIC PANEL (03/04/2024 12:25 PM [facility] BUN 16 7 - 26 mg/dL 03/04/2024 12:59 PM [facility] Creatinine 0.92 0.56 - 0.96 mg/dL 03/04/2024 12:59 PM [facility] Sodium 141 136 - 145 mmol/L 03/04/2024 12:59 PM [facility] Potassium 4.6(H) 3.5 - 4.5 mmol/L 03/04/2024 12:59 PM [facility] Chloride 106 98 - 107 mmol/L 03/04/2024 12:59 PM [facility] CO2 26 22 - 29 mmol/L 03/04/2024 12:59 PM [facility] Glucose 110(H) 70 - 99 mg/dL 03/04/2024 12:59 PM [facility] Calcium 9.7 8.4 - 10.2 mg/dL 03/04/2024 12:59 PM [facility] Protein Total 7.5 6.0 - 8.3 g/dL 03/04/2024 12:59 PM [facility] Albumin 4.0 3.4 - 5.0 g/dL 03/04/2024 12:59 PM [facility] Bilirubin Total 0.6 0.2 - 1.2 mg/dL 03/04/2024 12:59 PM [facility] Alkaline Phosphatase 51 40 - 150 U/L 03/04/2024 12:59 PM [facility] ALT 26 5 - 55 U/L 03/04/2024 12:59 PM [facility] AST 30 5 - 34 U/L 03/04/2024 12:59 PM [facility] Anion Gap 9 6 - 16 03/04/2024 12:59 PM [facility] BUN/Creatinine Ratio 17 7 - 23 03/04/2024 12:59 PM [facility] Osmolality Calculated 294 275 - 295 mOsm/kg 03/04/2024 12:59 PM [facility] Albumin/Globulin Ratio 1.1 1.1 - 2.3 03/04/2024 12:59 PM ANESTHESIOLOGY MEDICAL DOCTOR [facility] eGFR by CKD-EPI 63(L) >=90 mL/min/1.7 3 m2 03/04/2024 12:59 PM ANESTHESIOLOGY MEDICAL DOCTOR [facility] Blood BLOOD SPECIMEN / Unknown Lab Venipuncture / Unknown 03/04/2024 12:25 PM ANESTHESIOLOGY MEDICAL DOCTOR 03/04/2024 12:32 PM ANESTHESIOLOGY MEDICAL DOCTOR Anastasia Gandhi INST[employer]ER [employer] IN[employer]UMENT MAKER LAB - CHEMI STRY ORDERABLES [facility] [address] [place] [address], [facility] [phone] * US ABDOMEN LIMITED (03/04/2024 10:33 AM ANESTHESIOLOGY MEDICAL DOCTOR) Anatomical Region Laterality Modality Abdomen Ultrasound 03/04/2024 10:4 5 AM ANESTHESIOLOGY MEDICAL DOCTOR Impressions 03/04/2024 11:22 AM ANESTHESIOLOGY MEDICAL DOCTOR Impression: 1.Liver Visualization Score A: No or minimal limitations. 2.US-2 Subthreshold. Repeat surveillance US in 3-6 months. 3.Redemonstrated hepatic cirrhosis with sequela of portal hypertension. Report drafted by Jeff Leggett MD (resident). I, Lila Pool MD have personally reviewed and interpreted this examination/study. > Interpreting Provider: Lila Pool MD on 03/04/2024 11:22 AM Narrative 03/04/2024 11:22 AM ANESTHESIOLOGY MEDICAL DOCTOR PROCEDURE: ??US ABDOMEN LIMITED DATE/TIME OF EXAM: [...] Report drafted by Jeff Leggett MD (resident). Lila Gonzalez MD have personally reviewed and interpreted this examination/study. > Interpreting Provider: Lila Pool MD on 03/04/2024 11:22 AM Anastasia Gandhi INSTALLER [employer] IN[employer]UMENT MAKER US ORDERABL ES * MICROALB/CREAT RATIO URINE (EXTERNAL RESULT ENTRY) (11/27/2022 9:45 AM CDT) Microalb/Creat Ratio (EXTERNAL RESULT) 84.4 mg/g OTHER LAB Urine URINE / Unknown 11/27/2022 9 :45 AM CDT Historical Provider LAB - URINE CHEMI STRY ORDERABLES Performing Organization Address City/[facility]/ZIP Co de Phone Number OTHER LAB * HEMOGLOBIN A1C (EXTERNAL RESULT ENTRY) (11/27/2022 9:45 AM CDT) Hemoglobin A1c (EXTERNAL RESULT) 5.6 % OTHER LAB Blood BLOOD SPECIMEN / Unknown 11/27/2022 9:45 AM CDT Historical Provider LAB - CHEMISTRY O RDERABLES OTHER LAB from Last 3 Months or Most Recently Relevant to Health Maintenance Care Teams Panelboard Tank Pumper Relationship Specialty Start Date End Date Soy Joyce MD [address] [facility] [address] [place] [address] PCP - General 02/04/21
--- OUTSIDE RECORDS SUMMARY | 2024-03-10 15:52 | XMS_ITS | Patient Health Summary ---
Author Organization [facility] Address [address] [facility] [place] [address] Care Team Providers Care Bolt Header Name Role Phone Soy Joyce MD Primary Care Provider Note from [facility],non-owned Affiliates and Associated Physician Practices is amultiple site organization consisting of ambulatory clinics and hospital sitesin [place], [place], [place] and [place]. This disclosure is being madepursuant to the Care Everywhere program and may not contain all information available regarding this patient. Last updated 17.[facility] Allergies No known active allergies Medications * Be aware that medications may not be up to date on this document. Alwaysverify current medications with the patient. * levothyroxine (SYNTHROID) 150 MCG tablet(Started 06/12/2020) Take 100 mcg by mouth daily before breakfast * venlafaxine XR 24hr (EFFEXOR XR) 75 MG capsule venlafaxine ER 75 mg capsule,extended release 24 hr TAKE 1 CAPSULE BY MOUTH EVERY DAY. CONTACT CLINIC IF CHANGE IN MOOD OR BEHAVIOR. NO ALCOHOL DRIVINGOR WITH SEDATING MEDICATIONS * rosuvastatin (Crestor) 20 MG tablet(Started 03/31/2021) Take 1 (one) tablet by mouth once daily * diclofenac sodium EC (Voltaren) 75 MG tablet Take 1 (one) tablet by mouth 2 times daily * Multiple Vitamins-Minerals (WOMENS MULTI VITAMIN & MINERAL PO) Take by mouth once daily * olmesartan (Benicar) 5 MG tablet(Started 12/30/2023) Take 1 (one) tablet by mouth once daily * Ozempic, 1 MG/DOSE, 4 MG/3ML pen(Started 11/24/2023) Inject 1 (one) mg subcutaneously every 7 days * levothyroxine (Synthroid) 100 MCG tablet Take 1 (one) tablet by mouth once daily * CRANBERRY PO Take 500 mg by mouth once daily Ended Medications* metoprolol succinate XL 24hr (TOPROL XL) 25 MG tablet (Discontinued) Take 2 (two) tablets by mouth once daily * Multiple Vitamin (MULTIVITAMIN ADULT PO)(Discontinued) Take 1 tablet by mouth once daily * albuterol HFA (Proventil; Ventolin; Proair) 108 (90 Base) MCG/ACT inhaler (Discontinued) INL 2 PFS PO Q 4 H PRN * Ozempic, 0.25 or 0.5 MG/DOSE, 2 MG/1.5ML pen(Started 03/11/2022)(Discontinued) Inject 0.5 (one-half) mg subcutaneously every 7 days * LORazepam (Ativan) 0.5 MG tablet(Discontinued) Take 1 (one) tablet by mouth every 8 hours as needed for Anxiety * acetaminophen (Tylenol) 500 MG tablet(Discontinued) Take 1 (one) tablet by mouth as needed for Fever or Pain Maximum allowable Acetaminophen amount = 4Grams (4000 mg) / 24 hours. * Esomeprazole Magnesium (NEXIUM PO)(Discontinued) Take by mouth as needed * Cholecalciferol (vitamin D3) 1.25 MG (77731 UT) capsule(Discontinued) Take 1 (one) capsule by mouth once daily * cyclobenzaprine (Flexeril) 10 MG tablet(Discontinued) Take 1 (one) tablet by mouth once daily as needed for Muscle Spasms * lisinopril (Prinivil; Zestril) 2.5 MG tablet(Discontinued) Take 1 (one) tablet by mouth once daily * predniSONE (Deltasone) 10 MG tablet(Started 08/26/2023)(Discontinued) Take 1 (one) tablet by mouth 2 times daily * montelukast (Singulair) 10 MG tablet(Discontinued) Take 1 (one) tablet by mouth once daily Active Problems Problem Noted Date Diagnosed Date 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/10/2021 Cataract 05/10/2021 Deep venous thrombosis 05/10/2021 Diabetes [...] Comments Blood Pressure 133/72 03/04/2024 10:58 AM INTERNAL AUDITOR Pulse 92 03/04/2024 10:58 AM INTERNAL AUDITOR Temperature 37.2 ??C (99 ??F) 03/04/2024 10: 58 AM INTERNAL AUDITOR Respiratory Rate 18 02/13/2023 10:1 3 AM INTERNAL AUDITOR Oxygen Saturation 95% 03/04/2024 10: 58 AM INTERNAL AUDITOR Inhaled Oxygen Concentration - - Weight 100.1 kg (220 lb 9.6 oz) 025 10:58 AM INTERNAL AUDITOR Height 165.1 cm (5' 5 ) 03/04/2024 10:5 8 AM INTERNAL AUDITOR Body Mass Index 36.71 03/04/2024 10:58 AM INTERNAL AUDITOR Procedures * PT-INR [facility](Performed 03/04/2024) Performed for 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), Metabolic dysfunction- associated steatohepatitis (MASH), Liver lesion * COMPREHENSIVE METABOLIC PANEL(Performed 03/04/2024) Performed for 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), Metabolic dysfunction- associated steatohepatitis (MASH), Liver lesion * CBC W AUTO DIFFERENTIAL(Performed 03/04/2024) Performed for 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), Metabolic dysfunction- associated steatohepatitis (MASH), Liver lesion * ALPHA FETOPROTEIN BLOOD TUMOR MARKER(Performed 03/04/2024) Performed for 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), Metabolic dysfunction- associated steatohepatitis (MASH), Thrombocytopenia, unspecified (HCC), Metabolic syndrome * US ABDOMEN LIMITED(Performed 03/04/2024) Performed for 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) * US ABDOMEN LIMITED(Performed 08/28/2023) Performed for 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), Thrombocytopenia, unspecified (HCC), Metabolic syndrome * US ABDOMEN LIMITED(Performed 02/13/2023) Performed for 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) * HEMOGLOBIN A1C (EXTERNAL RESULT ENTRY)(Performed 11/27/2022) * TSH (EXTERNAL RESULT ENTRY)(Performed 11/27/2022) * T4 FREE (EXTERNAL RESULT ENTRY)(Performed 11/27/2022) * MICROALB/CREAT RATIO URINE (EXTERNAL RESULT ENTRY)(Performed 11/27/2022) * COMP MET PANEL (EXTERNAL RESULT ENTRY)(Performed 11/27/2022) * LIPID PROFILE (EXTERAL RESULT ENTRY)(Performed 11/27/2022) * CBC W DIFF (EXTERNAL RESULT ENTRY)(Performed 11/27/2022) * US ABDOMEN LIMITED(Performed 08/16/2022) Performed for 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) * PT INR (EXTERNAL RESULT ENTRY)(Performed 03/13/2022) * AFP (EXTERNAL RESULT ENTRY)(Performed 03/13/2022) * TSH (EXTERNAL RESULT ENTRY)(Performed 03/05/2022) * T4 FREE (EXTERNAL RESULT ENTRY)(Performed 03/05/2022) * COMP MET PANEL (EXTERNAL RESULT ENTRY)(Performed 03/05/2022) * LIPID PROFILE (EXTERAL RESULT ENTRY)(Performed 03/05/2022) * MICROALB/CREAT RATIO URINE (EXTERNAL RESULT ENTRY)(Performed 03/05/2022) * HEMOGLOBIN A1C (EXTERNAL RESULT ENTRY)(Performed 03/05/2022) * VITAMIN D HYDROXY (EXTERNAL RESULT)(Performed 03/05/2022) * CBC W DIFF (EXTERNAL RESULT ENTRY)(Performed 03/05/2022) * NM LIVER ELASTOGRAPHY(Performed 11/20/2021) Performed for Elevated liver enzymes * MITOCHONDRIAL ANTIBODY SCREEN(Performed 05/10/2021) Performed for Elevated liver enzymes * SMOOTH MUSCLE ANTIBODY W REFLEX TITER(Performed 05/10/2021) Performed for Elevated liver enzymes * PT-INR [facility](Performed 05/10/2021) Performed for Elevated liver enzymes * IGG BLOOD(Performed 05/10/2021) Performed for Elevated liver enzymes * HEPATITIS B CORE ANTIBODY TOTAL(Performed 05/10/2021) Performed for Elevated liver enzymes * CERULOPLASMIN(Performed 05/10/2021) Performed for Elevated liver enzymes * KAIT BLOOD SCREEN W/REFLEX TITER(Performed 05/10/2021) Performed for Elevated liver enzymes * [id number] BLOOD PHENOTYPING PANEL(Performed 05/10/2021) Performed for Elevated liver enzymes * ALPHA FETOPROTEIN BLOOD TUMOR MARKER(Performed 05/10/2021) Performed for Elevated liver enzymes * COMPREHENSIVE METABOLIC PANEL(Performed 05/10/2021) Performed for Elevated liver enzymes * CBC W AUTO DIFFERENTIAL(Performed 05/10/2021) Performed for Elevated liver enzymes * HEMOGLOBIN A1C (EXTERNAL RESULT ENTRY)(Performed 02/20/2021) * TSH (EXTERNAL RESULT ENTRY)(Performed 02/20/2021) * T4 FREE (EXTERNAL RESULT ENTRY)(Performed 02/20/2021) * LIPID PROFILE (EXTERAL RESULT ENTRY)(Performed 02/20/2021) * PT INR (EXTERNAL RESULT ENTRY)(Performed 02/20/2021) * FERRITIN (EXTERNAL RESULT ENTRY)(Performed 02/20/2021) * COMP MET PANEL (EXTERNAL RESULT ENTRY)(Performed 02/20/2021) * CBC W DIFF (EXTERNAL RESULT ENTRY)(Performed 02/20/2021) * IRON/SATURATION (EXTERNAL RESULT ENTRY)(Performed 02/20/2021) Results * PT-INR [facility] (03/04/2024 12:25 PM INTERNAL AUDITOR) Only the most recent of2 resultswithin the time period is included. PT 13.6 12.1 - 14.8 Seconds 03/04/2024 12:59 PM INTERNAL AUDITOR [facility] INR 1.1 See Comment 03/04/2024 12:59 PM INTERNAL AUDITOR [facility] Comment:The suggested therap eutic range for standard coumadin (warfarin) therapy is an INR of 2.0-3.0. For high-risk patients (Mechanical Mitral Valve Prosthesis, etc.), the suggested prophylactic therapeutic range is an INR of 2.5-3.5. Blood BLOOD SPECIMEN / Unknown Lab Venipuncture / Unknown 03/04/2024 12:25 PM INTERNAL AUDITOR 03/04/2024 12:34 PM INTERNAL AUDITOR Anastasia Gandhi ORACLE FUSION MIDDLEWARE DEVELOPER-ABSTRACT SEARCHER LAB - COAGU LATION ORDERABLES Performing Organization Address [facility] Co de Phone Number [address] [address], [facility] [phone] * ALPHA FETOPROTEIN BLOOD TUMOR MARKER (03/04/2024 12:25 PM INTERNAL AUDITOR) Only the most recent of2 resultswithin the time period is included. [facility] Alpha-Fetoprote in Tumor Marker 6.7 <=8.3 ng/mL 03/04/2024 1:22 PM INTERNAL AUDITOR [facility] Comment: AFP values will vary depending on testing procedure used. Results are not comparable across different methods. AFP values obtained by [facility] using an K-MOTION Interactive Alinity Immunoassay. Blood BLOOD SPECIMEN / Unknown Lab Venipuncture / Unknown 03/04/2024 12:25 PM INTERNAL AUDITOR 03/04/2024 12:32 PM INTERNAL AUDITOR Aanstasia Gandhi APRN-ABSTRACT SEARCHER LAB - CHEMI STRY ORDERABLES Performing Organization Address [facility] Co de Phone Number [address] [address], [facility] [phone] * (ABNORMAL) CBC WITH DIFFERENTIAL (03/04/2024 12:25 PM INTERNAL AUDITOR) Only the most recent of2 resultswithin the time period is included. [facility] WBC 5.5 4.0 - 10.7 x10E9/L 03/04/2024 12:39 PM INTERNAL AUDITOR [facility] RBC Count 4.76 3.90 - 5.20 [...] Lab Venipuncture / Unknown 03/04/2024 12:25 PM INTERNAL AUDITOR 03/04/2024 12:32 PM INTERNAL AUDITOR Anastasia Gandhi ORACLE FUSION MIDDLEWARE DEVELOPER-ABSTRACT SEARCHER LAB - HEMAT OLOGY ORDERABLES [facility] [address] [place] [address], [facility] [phone] * (ABNORMAL) COMPREHENSIVE METABOLIC PANEL (03/04/2024 12:25 PM INTERNAL AUDITOR) Only the most recent of2 resultswithin the time period is included. BUN 16 7 - 26 mg/dL 03/04/2024 [...] 5 - 34 U/L 03/04/2024 12:59 PM [facility] Anion Gap 9 6 - 16 03/04/2024 12:59 PM [facility] BUN/Creatinine Ratio 17 7 - 23 03/04/2024 12:59 PM [facility] Osmolality Calculated 294 275 - 295 mOsm/kg 03/04/2024 12:59 PM [facility] Albumin/Globulin Ratio 1.1 1.1 - 2.3 03/04/2024 12:59 PM [facility] eGFR by CKD-EPI 63(L) >=90 mL/min/1.7 3 m2 03/04/2024 12:59 PM [facility] Blood BLOOD SPECIMEN / Unknown Lab Venipuncture / Unknown 03/04/2024 12:25 PM INTERNAL AUDITOR 03/04/2024 12:32 PM INTERNAL AUDITOR Anastasia Gandhi ORACLE FUSION MIDDLEWARE DEVELOPER-ABSTRACT SEARCHER LAB - CHEMI STRY ORDERABLES [facility] [address] [place] [phone], [facility] [phone] * US ABDOMEN LIMITED (03/04/2024 10:33 AM INTERNAL AUDITOR) Only the most recent of4 resultswithin the time period is included. Anatomical Region Laterality Modality Abdomen Ultrasound 03/04/2024 10:4 5 AM INTERNAL AUDITOR Impressions 03/04/2024 11:22 AM INTERNAL AUDITOR Impression: 1.Liver Visualization Score A: No or minimal limitations. 2.US-2 Subthreshold. Repeat surveillance US in 3-6 months. 3.Redemonstrated hepatic cirrhosis with sequela of portal hypertension. Report drafted by Jeff Leggett MD (resident). I, Lila Pool MD have personally reviewed and interpreted this examination/study. > Interpreting Provider: Lila Pool MD on 03/04/2024 11:22 AM Narrative 03/04/2024 11:22 AM INTERNAL AUDITOR PROCEDURE: ??US ABDOMEN LIMITED DATE/TIME OF EXAM: [...] MD on 03/04/2024 11:22 AM Anastasia Gandhi ORACLE FUSION MIDDLEWARE DEVELOPER-ABSTRACT SEARCHER US ORDERABL ES * (ABNORMAL) CBC W DIFF (EXTERNAL RESULT ENTRY) (11/27/2022 9:45 AM CDT) Only the most recent of3 resultswithin the time period is included. WBC (EXTERNAL RESULT) 5.5 10^3/ul OTHER LAB Hemoglobin (EXTERNAL RESULT) 13.2 g/dl OTHER LAB Hematocrit (EXTERNAL RESULT) 42.5 % OTHER LAB Platelets (EXTERNAL RESULT) 142(A) 10^3/ul OTHER LAB Neutrophil Absolute (EXTERNAL RESULT) 2.90 10^3/ul OTHER LAB Blood BLOOD SPECIMEN / Unknown 11/27/2022 9:45 AM CDT Historical Provider LAB - HEMATOLOGY ORDERABLES OTHER LAB * (ABNORMAL) COMP MET PANEL (EXTERNAL RESULT ENTRY) (11/27/2022 9:45 AM CDT) Only the most recent of3 resultswithin the time period is included. Glucose (EXTERNAL) 111(A) mg/dL OTHER LAB Sodium (EXTERNAL RESULT) 140 mmol/L OTHER LAB Potassium (EXTERNAL RESULT) 4.7 mmol/L OTHER LAB Chloride (EXTERNAL RESULT) 108(A) mmol/L OTHER LAB CO2 (EXTERNAL) 23 mmol/L OTHER LAB Calcium (EXTERNAL RESULT) 9.6 mg/dL OTHER LAB Anion Gap (EXTERNAL RESULT) 13.7(A) mmol/L OTHER LAB BUN (EXTERNAL RESULT) 18 mg/dL OTHER LAB Creatinine (EXTERNAL RESULT) 0.78 mg/dl OTHER LAB Alkaline Phosphatase (EXTERNAL RESULT) 67 U/L OTHER LAB ALT (EXTERNAL RESULT) 28 U/L OTHER LAB AST (EXTERNAL RESULT) 39 U/L OTHER LAB Protein Total (EXTERNAL RESULT) 6.7 gm/dL OTHER LAB Albumin (EXTERNAL RESULT) 3.7 gm/dL OTHER LAB Bilirubin Total (EXTERNAL RESULT) 0.60 mg/dL OTHER LAB eGFR MDRD (EXTERNAL RESULT) >60 mL/min/1.7 3m2 OTHER LAB eGFR (EXTERNAL) >60 mL/min/1.7 3m2 OTHER LAB Blood BLOOD SPECIMEN / Unknown 11/27/2022 9:45 AM CDT Historical Provider LAB - CHEMISTRY Prabha PHILIPPE Performing Organization Address [facility] de Phone Number OTHER LAB * (ABNORMAL) LIPID PROFILE (EXTERAL RESULT ENTRY) (11/27/2022 9:45 AM CDT) Only the most recent of3 resultswithin the time period is included. Cholesterol (EXTERNAL RESULT) 129(A) mg/dL OTHER LAB Triglycerides (EXTERNAL RESULT) 112 mg/dL OTHER LAB HDL (EXTERNAL RESULT) 51 mg/dL OTHER LAB LDL (EXTERNAL RESULT) 56 mg/dL OTHER LAB VLDL (EXTERNAL RESULT) OTHER LAB Chol HDL Ratio (External Result) OTHER LAB Blood BLOOD SPECIMEN / Unknown 11/27/2022 9:45 AM CDT Historical Provider LAB - CHEMISTRY Prabha PHILIPPE Performing Organization Address [facility] de Phone Number OTHER LAB * TSH (EXTERNAL RESULT ENTRY) (11/27/2022 9:45 AM CDT) Only the most recent of3 resultswithin the time period is included. TSH (EXTERNAL RESULT) 0.060 uIU/mL OTHER LAB Blood BLOOD SPECIMEN / Unknown 11/27/2022 9:45 AM CDT Historical Provider LAB - CHEMISTRY Prabha PHILIPPE Performing Organization Address City/[facility]/ZIP Co de Phone Number OTHER LAB * T4 FREE (EXTERNAL RESULT ENTRY) (11/27/2022 9:45 AM CDT) Only the most recent of3 resultswithin the time period is included. T4 Free (EXTERNAL RESULT) 3.00 ng/dl OTHER LAB Blood BLOOD SPECIMEN / Unknown 11/27/2022 9:45 AM CDT Historical Provider LAB - CHEMISTRY O RDERABLES Performing Organization Address [facility] de Phone Number OTHER LAB * MICROALB/CREAT RATIO URINE (EXTERNAL RESULT ENTRY) (11/27/2022 9:45 AM CDT) Only the most recent of2 resultswithin the time period is included. Pathologist [facility] Microalb/Creat Ratio (EXTERNAL RESULT) 84.4 mg/g OTHER LAB Urine URINE / Unknown 11/27/2022 9 :45 AM CDT Historical Provider LAB - URINE CHEMI STRY ORDERABLES Performing Organization Address [facility] de Phone Number OTHER LAB * HEMOGLOBIN A1C (EXTERNAL RESULT ENTRY) (11/27/2022 9:45 AM CDT) Only the most recent of3 resultswithin the time period is included. Pathologist [facility] Hemoglobin A1c (EXTERNAL RESULT) 5.6 % OTHER LAB Blood BLOOD SPECIMEN / Unknown 11/27/2022 9:45 AM CDT Historical Provider LAB - CHEMISTRY O RDERABLES Performing Organization Address [facility] Co de Phone Number OTHER LAB * (ABNORMAL) PT INR (EXTERNAL RESULT ENTRY) (03/13/2022 8:46 AM INTERNAL AUDITOR) Only the most recent of2 resultswithin the time period is included. Pathologist [facility] PT (EXTERNAL) 12.0(A) sec OTHER LAB INR (EXTERNAL RESULT) 1.2 OTHER LAB Blood BLOOD SPECIMEN / Unknown 03/13/2022 8:46 AM INTERNAL AUDITOR Historical Provider LAB - CHEMISTRY O RDERAMICHAEL Performing Organization Address City/[facility] Co de Phone Number OTHER LAB * AFP (EXTERNAL RESULT ENTRY) (03/13/2022 8:46 AM INTERNAL AUDITOR) Alpha-Fetoprote in (EXTERNAL RESULT) 5.1 OTHER LAB Blood BLOOD SPECIMEN / Unknown 03/13/2022 8:46 AM INTERNAL AUDITOR Historical Provider LAB - CHEMISTRY O RDSADI Performing Organization Address [facility] Co de Phone Number OTHER LAB * VITAMIN D HYDROXY (EXTERNAL RESULT) (03/05/2022 9:52 AM INTERNAL AUDITOR) Vitamin D Hydroxy (External Result) 69.6 OTHER LAB Blood 03/05/2022 9:52 AM INTERNAL AUDITOR Historical Provider LAB - CHEMISTRY O DENAE Performing Organization Address [facility] Co de Phone Number OTHER LAB * PROC FIBROSCAN (11/20/2021 2:03 PM CDT) Narrative Nigel Sevilla MD - 11/20/2021 2:03 PM CDT Nigel Sevilla MD ? 11/20/2021 10:09 PM Diagnosis: elevated liver enzymes RN verified patient not , no implanted devices and NPO for prior 3 hours. Vital signs taken, procedure explained and consent signed. Date of Exam: 11/20/2021 Liver Stiffness: (LSM, kPa) median: ??27.0 IQR (interquartile range): ?? 8.0 IQR/Median% (ideally < 30%): ??30% CAP (controlled attenuation parameter): ??293 Technical Difficulty: Many invalid measurements Ordering Provider: Sagrario Gandhi CNP Phone Fax Fibroscan interpretation: I have personally reviewed the Fibroscan report and associated tracings. The calculated Liver Stiffness Measurement (LSM, kPa) indicates that: The probability of advanced liver fibrosis is: very high and the probability of complications of portal hypertension is also high. The loss of ultrasound signal, (controlled attenuation parameter, CAP [dB/m]), indicates that the probability of hepatic steatosis is: high. Nigel Sevilla MD The following criteria are used to indicate the probability of advanced (stage 3-4) fibrosis: < 7.0 kPa: low 7.0-8.9 kPa: low to moderate 9.0-14.9 kPa: moderate 15-20 kPa: high > 20 kPa: very high Liver stiffness > 20 kPa is also associated with a high probability of complications of portal hypertension including varices and ascites. Liver stiffness > 50 kPa is associated with a high risk of variceal bleeding. These interpretations are based on the following published data: Kortney PJ, Dalia M, Fabiola M, et al. Accuracy of FibroScan controlled attenuation parameter and liver stiffness measurement in assessing steatosis and fibrosis in patients with nonalcoholic fatty liver disease. Gastroenterology 2019;156:9362-8757. [place] MS, Ирина R, Van Cristy ML, et al. Vibration-controlled transient elastography to assess fibrosis and steatosis in patients with nonalcoholic fatty liver disease. Clin Gastroenterol Hepatol 2019;17:156-163. Note: 1. Fibroscan cannot reliably identify earlier stages of fibrosis (ie distinguish F0 from F1 and F2) and thus a histologic stage cannot be predicted from the Fibroscan reading. 2. Assessing the likelihood of advanced fibrosis in patients with indeterminate liver stiffness measurement (LSM) by Fibroscan (e.g., 8-15 kPa) can be improved by also calculating the FIB4 score (Binuke et al. Hepat[employer] Communications 2019;3:9687-9253) or NAFLD Fibrosis score (Richmond et al. Clinical Gastroenterology and Hepatology 2019;17:9609-2636. from routine clinical data. 3. Liver stiffness can be increased by factors other than fibrosis including passive congestion, infiltrative processes, active alcoholism, biliary obstruction and marked inflammation. The interpretation of the Fibroscan result provided above may not have taken such clinical factors into account. Disease etiology also influences Fibroscan cutoff values for fibrosis stages and the following cutoffs have been proposed (Crystal et al, Clin Gastro Hepatol 2015; 13:27-36): Cutoffs for Stage 3 and Stage 4 fibrosis respectively: Hepatitis B: >9 and >11.7 kPa Hepatitis C: >9.5 and >12.5 kPa HCV-HIV: >11 and >14 kPa Cholestatic liver diseases: >10 and >17.9 kPa NAFLD/GARCIA: >10 and >14 kPa CAP estimates of steatosis: normal <200 dB/m mild 200 to 250 dB/m moderate 250-290 dB/m substantial > 290 dB/m (Note that Fibroscan is not a quantitative measure of liver fat.) These criteria are estimates and may change as additional supporting data becomes available. [email or web address] Anastasia Gandhi ORACLE FUSION MIDDLEWARE DEVELOPER-ABSTRACT SEARCHER PROCEDURE/M INOR SURGICAL ORDERABLES * SMOOTH MUSCLE ANTIBODY W REFLEX TITER (05/10/2021 3:05 PM CDT) F-Actin Antibody IgG 19 0 - 19 Units 05/12/2021 7:42 AM CDT [facility] ([facility]) Comment: If F-Actin (Smooth Muscle) Antibody, IgG is negative, the Smooth Muscle Antibody titer by IFA is not performed. REFERENCE INTERVAL: F-Actin (Smooth Muscle) Antibody, IgG by ?FORTINO ??19 Units or less ....... Negative ??20 - 30 Units .......... Weak Positive-Suggest repeat ? testing in two to three weeks ? with fresh specimen. ??31 Units or greater..... Positive-Suggestive of ? autoimmune hepatitis type 1 ? or chronic active hepatitis. F-actin IgG antibodies have been shown to have increased sensitivity for autoimmune hepatitis (AIH) but lower specificity than smooth muscle antibodies (SMA). F-actin IgG antibodies can also be seen in SMA-negative disease controls (non-AIH), especially in patients with primary biliary cirrhosis and chronic hepatitis C infections. Some patients with AIH may be SMA-positive but negative for F-actin IgG. Consider testing for SMA by IFA if suspicion for AIH is strong. Performed By: [employer] [address] [place] [address] Brand Planner: Inge Mims MD Blood BLOOD SPECIMEN / Unknown Lab Venipuncture / Unknown 05/10/2021 3:05 PM CDT 05/10/2021 4:02 PM CDT Anastasia Gandhi ORACLE FUSION MIDDLEWARE DEVELOPER-ABSTRACT SEARCHER LAB - SEROL OGY ORDERABLES Performing Organization Address [facility] de Phone Number [facility] [employer] [facility]) [address] [place] [address] * MITOCHONDRIAL ANTIBODY SCREEN (05/10/2021 3:05 PM CDT) Mitochondrial M2 Antibody 6.7 0.0 - 24.9 Units 05/12/2021 7:42 AM CDT [facility] [employer] ([facility]) Comment: REFERENCE INTERVAL: Mitochondrial (M2) Antibody, IgG ?20.0 Units or less ......... Negative ??20.1 - 24.9 Units........... Equivocal ??25.0 Units or greater....... Positive Anti-mitochondrial antibodies (AMA) are thought to be present in 90-95% of patients with primary biliary cholangitis (PBC). However, the frequency of detected antibodies may be cohort or assay dependent, as lower sensitivities have been reported. Not all PBC patients are positive for AMA; some patients may be positive for SP100 and/or GP210 antibodies. A negative result does not rule out PBC. Performed By: [employer] [address] [place] [address] Brand Planner: Inge Mims MD Blood BLOOD SPECIMEN / Unknown Lab Venipuncture / Unknown 05/10/2021 3:05 PM CDT 05/10/2021 4:02 PM CDT Anastasia Gandhi ORACLE FUSION MIDDLEWARE DEVELOPER-ABSTRACT SEARCHER LAB - CHEMI STRY ORDERABLES Performing Organization Address [facility] Co de Phone Number [facility] [employer] [facility]) [address] [place] [address] * ENOLF-6-UFELMOZMNSJ BLOOD PHENOTYPING PANEL (05/10/2021 3:05 PM CDT) Cmswr-1-Lyvjmjekpb n Phenotype M1M1 05/14/2021 4:52 PM CDT [facility] ([facility]) Comment: The patient appears to have a normal phenotype. All M alleles (including subtypes M1, M2, and M3) produce normal serum concentrations of myecm-9-evgjyeoq inhibitor and are not associated with clinical disease. Caution in interpretation is advised if the patient has been transfused within the previous 21 days. Performed By: [employer] [address] [place] [address] Brand Planner: Inge Mims MD Pnqyz-2-Amgywdjlsn n 163 90 - 200 mg/dL 05/14/2021 4:52 PM CDT [facility] ([facility]) Comment:To convert to umol/L , multiply mg/dL by 0.185 Blood BLOOD SPECIMEN / Unknown Lab Venipuncture / Unknown 05/10/2021 3:05 PM CDT 05/10/2021 4:02 PM CDT Anastasia Gandhi [employer] MIDDLEWARE DEVELOPER-ABSTRACT SEARCHER LAB - CHEMI STRY ORDERABLES [facility]) [address] * KAIT BLOOD SCREEN W/REFLEX TITER (05/10/2021 3:05 PM CDT) Pathologist [facility] [place] KAIT IgG None Detected None Detected 05/12/2021 9:16 PM CDT [facility] [employer] ([facility]) Comment: If suspicion of connective tissue disease is strong and KAIT EIA is negative, consider testing for KAIT by IFA ([id number]). INTERPRETIVE INFORMATION: Anti-Nuclear Antibodies (KAIT), IgG by FORTINO Antinuclear Antibodies (KAIT), IgG by FORTINO: KAIT specimens are screened using enzyme-linked immunosorbent assay (FORTINO) methodology. All FORTINO results reported as Detected are further tested by indirect fluorescent assay (IFA) using HEp-2 substrate with an IgG-specific conjugate. The KAIT FORTINO screen is designed to detect antibodies against dsDNA, histones, SS-A (Ro), SS-B (La), [place], [place]/G[employer]ICE [employer], Scl-70, Jennifer-1, centromeric proteins, other antigens extracted from the HEp-2 cell nucleus. KAIT FORTINO assays have been reported to have lower sensitivities than KAIT IFA for systemic autoimmune rheumatic diseases (SARD). Negative results do not necessarily rule out SARD. Performed By: [employer] [address] [place] [address] Brand Planner: Inge Mims MD Blood BLOOD SPECIMEN / Unknown Lab Venipuncture / Unknown 05/10/2021 3:05 PM CDT 05/10/2021 4:02 PM CDT Anastasia Gandhi APRN-ABSTRACT SEARCHER LAB - CHEMI STRY ORDERABLES Performing Organization Address City/[facility]/ZIP Co de Phone Number [facility] ([facility]) [address] [place] [address] * CERULOPLASMIN (05/10/2021 3:05 PM CDT) Ceruloplasmin 32 20 - 60 mg/dL 05/10/2021 4:25 PM CDT [facility] Blood BLOOD SPECIMEN / Unknown Lab Venipuncture / Unknown 05/10/2021 3:05 PM CDT 05/10/2021 4:02 PM CDT Anastasia Gandhi APRN-ABSTRACT SEARCHER LAB - CHEMI STRY ORDERABLES Performing Organization Address [facility]/ZIP Co de Phone Number [address] [phone], [facility] [phone] * HEPATITIS B CORE ANTIBODY (05/10/2021 3:05 PM CDT) HBc Antibody Total Non-reacti ve Non-reacti ve 05/10/2021 4:44 PM CDT [facility] Blood BLOOD SPECIMEN / Unknown Lab Venipuncture / Unknown 05/10/2021 3:05 PM CDT 05/10/2021 4:02 PM CDT Anastasia Gandhi [employer] MIDDLEWARE DEVELOPER-ABSTRACT SEARCHER LAB - CHEMI STRY ORDERABLES [address] [place] [address] [address], [place] [phone] * IGG BLOOD (05/10/2021 3:05 PM CDT) Pathologist [facility] [place] IgG 998 767-1,590 mg/dL 05/10/2021 4:27 PM CDT [facility] Blood BLOOD SPECIMEN / Unknown Lab Venipuncture / Unknown 05/10/2021 3:05 PM CDT 05/10/2021 4:02 PM CDT Anastasia Gandhi APRN-MARY JO LAB - CHEMI STRY ORDERABLES [address] [address], [place] [phone] * FERRITIN (EXTERNAL RESULT ENTRY) (02/20/2021) [facility] Ferritin (EXTERNAL RESULT) 14 Blood BLOOD SPECIMEN / Unknown 02/20/2021 Soy Joyce MD LAB - CHEMISTRY ORDERABLES * IRON/SATURATION (EXTERNAL RESULT ENTRY) (02/20/2021) [facility] Iron (EXTERNAL RESULT) 120 mcg/dl Transferrin (EXTERNAL RESULT) Transferrin Saturation (EXTERNAL RESULT) 29 % Blood BLOOD SPECIMEN / Unknown 02/20/2021 Anastasia WYATT LAB - CHEMI STRY ORDERABLES Care Teams Bolt Header Relationship Specialty Start Date End Date Soy Joyce MD [address] [phone] PCP - General 02/04/21
--- OUTSIDE RECORDS SUMMARY | 2024-03-10 15:52 | XMS_ITS | Clinical Summary ---
Author Organization [facility] Facility Address [address] [place] [address] Care Team Providers Care All Around Patternmaker Name Role Phone Soy Joyce MD Primary Care Provider [phone] Medications olmesartan (BENICAR) 5 MG tablet Take 1 tablet (5 mg total) by mouth 1 (one) time each day 90 tablet 1 12/30/2023 Active Encounters Date Type Department Care Team Description 03/05/2024 Documentation Only [facility], [address] [phone] Antwan Arora DO 03/03/2024 Documentation Only [facility], [address] [phone] Antwan Arora DO 03/02/2024 4:00 PM RIVER DRIVER Office Visit [facility], [address] [place] [address] Antwan Arora DO Stage 3a chronic kidney disease (HCC) (Primary Dx); Persistent proteinuria; Obstructive sleep apnea syndrome; Hepatic fibrosis with hepatic sclerosis; Hypertensive chronic kidney disease; Type 2 diabetes mellitus with diabetic chronic kidney disease (HCC); Pure hypercholesterolemia, not otherwise specified; Other specified hypothyroidism 03/02/2024 Documentation Only [facility], [address] [phone] Antwan Arora DO 03/02/2024 Documentation Only [address] [phone] Antwan Arora DO 02/06/2024 Documentation Only [address] [phone] Antwan Arora DO 12/30/2023 2:00 PM RIVER DRIVER Office Visit [facility] [address] [facility] [address] [place] [address] Antwan Arora DO Stage 3a chronic kidney disease (HCC) (Primary Dx); Persistent proteinuria; Obstructive sleep apnea syndrome; Hepatic fibrosis with hepatic sclerosis; Hypertensive chronic kidney disease; Type 2 diabetes mellitus with diabetic chronic kidney disease (HCC); Pure hypercholesterolemia, not otherwise specified; Other specified hypothyroidism 12/30/[address] [facility] [address] [facility] [address] [place] [address] Liv Lynch CMA from Last 3 Months Social History Tobacco Use Types Packs/Day Years Used Date Smoking Tobacco: Never Assessed Comments Unknown Sex and Gender Information Value Date Recorded Sex Assigned at Not on file Legal Sex Female 11:16 AM EDT Gender Identity Not on file Sexual Orientation Not on file Last Filed Vital Signs Vital Sign Reading Time Taken Comments Blood Pressure 110/60 03/02/2024 3:49 PM RIVER DRIVER Pulse 68 03/02/2024 3:49 PM RIVER DRIVER Temperature 36.7 ??C (98 ??F) 03/02/2024 3:49 PM RIVER DRIVER Respiratory Rate 18 03/02/2024 3:49 PM RIVER DRIVER Oxygen Saturation 97% 03/02/2024 3:49 PM RIVER DRIVER Inhaled Oxygen Concentration - - Weight 99.3 kg (219 lb) 03/02/2024 3:49 PM RIVER DRIVER Height - - Body Mass Index - - Plan of Treatment Upcoming Encounters Date Type Department Care Team (Late st Contact Info) Description 08/31/2024 12:30 PM CDT Office Visit [facility] [address] [facility] [address] [place] [address] Antwan Arora DO [address] [place] [address] [address] [place] [phone] Health Maintenance Due Date Last Done Comments Hepatitis B Vaccine (1 of 3 - Risk 3-dose series) 2003 Influenza Vaccine (#1) 2023 0, 12/11/2018, 12/01/2017, Additional history exists Diabetes: Hemoglobin A1C 10/28/2023 Diabetes: Ophthalmology Exam 10/28/2023 Diabetes: Pedal Pulse Checked 10/28/2023 Diabetes: Sensory Foot Exam 10/28/2023 Diabetes: Visual Foot Exam 10/28/2023 Pneumococcal Vaccine: 65+ Years Completed 9, 03/17/2017 Insurance [employer] MCR ADV PPO ([id number]) Advance Directives Documents on File Type Date Recorded Patient [place] Expl anation Advance Care Planning 01/02/2024 12:13 PM Care Teams All Around Patternmaker Relationship Specialty Start Date End Date Soy Joyce MD [address] [facility], [address] [place] [address] PCP - General Internal Medicine 09/25/23
--- OUTSIDE RECORDS SUMMARY | 2024-03-10 15:53 | XMS_ITS | Patient Health Record ---
Author Organization [facility] Office Address [address] [facility] [address] [place] [address] REASON FOR REFERRAL No Information MEDICATIONS Medication SIG (Take, Route, Frequency, Duration) Notes Start Date End Date Status Vitamin D (Ergocalciferol) 1.25 MG (42206 UT) TAKE 1 CAPSULE BY MOUTH EVERY OTHER WEEK for 30 Active PROBLEMS Problem Type ICD Code Onset Dates Problem Status W/U Status Risk SNOMED Code Notes Problem Type 2 diabetes mellitus with hyperglycemia (E11.65) Active confirmed Hyperglycemia due to type 2 diabetes mellitus (723602699030331 ) Problem Essential (primary) hypertension (I10) Active confirmed Essential hypertension (96959522) Problem Chronic kidney disease, stage 2 (mild) (N18.2) Active confirmed Chronic kidne y disease stage 2 (802778283) Problem Proteinuria, unspecified (R80.9) Active confirmed Proteinuria (71978975) PLAN OF TREATMENT No Information
--- OUTSIDE RECORDS SUMMARY | 2024-03-10 15:53 | XMS_ITS | CONTINUITY OF CARE DOCUMENT ---
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 Stacy Auguste MD Hx of DVT, treated w Xarelto active Velma Auguste MD GERD active Stacy Auguste MD Abnormal LFT's active Stacy Auguste MD Obesity active Stacy Auguste MD HTN essential active Stacy Auguste MD Venous insufficiency active Stacy Auguste MD Diabetes mellitus active Stacy Auguste MD Shortness of breath with exertion active Yao Auguste MD Family History of Hyperlipidemia: completed - Stacy Auguste MD Family History of Hypertension: completed - Yao Auguste MD Family History of Hyperlipidemia: completed - Stacy Auguste MD Family History of CVA or Stroke: completed - Rk Auguste MD ENCOUNTERS Date Type Provider Location Encounter Diag nosis - In-person encounter Office Visit Stacy Auguste MD [place] [facility] - In-person encounter Office Visit Stacy Auguste MD [place] [facility] - In-person encounter Office Visit Stacy Auguste MD [place] [facility] - In-person encounter Office Visit Stacy Auguste MD [place] [facility] Shortness of breath with exertion - In-person encounter Office Visit Stacy Auguste MD [place] [facility] - In-person encounter Office Visit Stacy Auguste MD [place] [facility] Diabetes mellitus - In-person encounter Office Visit Stacy Auguste MD [place] [facility] - In-person encounter Office Visit Stacy Auguste MD [place] [facility] Venous insufficiency - In-person encounter Office Visit Stacy Auguste MD [place] [facility] Family History of CVA or Stroke:Family History of Hyperlipidemia:Family History of Hypertension:Family History of Hyperlipidemia:Family History of Hypertension:[place] - On CPAPHTN essential - In-person encounter Office Visit Stacy Auguste MD [place] [facility] HTN essential - In-person encounter Office Visit Stacy Auguste MD [place] [facility] HypothyroidismOSA - On CPAPHyperlipidemiaHx of DVT, treated w XareltoGERDAbnormal LFT'sObesity VITAL SIGNS Date Observation Value Provider Body Mass Index (Ratio) 37.77 kg/m2 Alexander Auguste MD blood pressure, diastolic 95 mm[Hg] Li nkLogic blood pressure, systolic 161 mm[Hg] Radha kLogic blood pressure, diastolic 95 mm[Hg] Sa ra Alberts blood pressure, systolic 161 mm[Hg] Mary a Alberts respiratory rate E&M 17 /min Lana Si ms pulse rate 114 /min Lana Alberts oxygen saturation, oximetry 95 % Lana Alberts weight E&M 227 [lb_av] Lana Alberts blood pressure, cuff size regular Sa ra Alberts height E&M 65 [in_i] Lana Alberts Body Mass Index (Ratio) 39.27 kg/m2 Alexander Auguste MD blood pressure, diastolic 83 mm[Hg] Em nkLogic blood pressure, systolic 150 mm[Hg] Radha kLogic blood pressure, cuff size large Sa ra Alberts blood pressure, diastolic 83 mm[Hg] Sa ra Alberts blood pressure, systolic 150 mm[Hg] Mary a Alberts oxygen saturation, oximetry 92 % Lana Alberts respiratory rate E&M 17 /min Lana Si ms pulse rate 102 /min Lana Alberts weight E&M 236 [lb_av] Lana Alberts height E&M 65 [in_i] Lana Alberts Body Mass Index (Ratio) 39.10 kg/m2 Alexander Auguste MD blood pressure, diastolic 84 mm[Hg] Rocío fuentesha O'Jamison blood pressure, systolic 132 mm[Hg] Tracie abarca O'Jamison oxygen saturation, oximetry 93 % Marla O'Jamison respiratory rate E&M 16 /min Marla O'Jamison pulse rate 95 /min Marla O'Jamison weight E&M 235 [lb_av] Marla O'Jamison height E&M 65 [in_i] Marla O'Jamison Body Mass Index (Ratio) 38.10 kg/m2 Alexander Auguste MD blood pressure, cuff size regular Leo Storey pulse rate 103 /min Devika Storey oxygen saturation, oximetry 97 % Devika Storey blood pressure, diastolic 70 mm[Hg] Leo Storey blood pressure, systolic 130 mm[Hg] Dom Storey respiratory rate E&M 19 /min Devika Storey weight E&M 229 [lb_av] Devika Storey height E&M 65 [in_i] Devikaalexandru Storey Body Mass Index (Ratio) 37.60 kg/m2 Bhavin Kuo blood pressure, cuff size regular Cy aneta Ellison blood pressure, diastolic 83 mm[Hg] Cy aneta Ellison blood pressure, systolic 154 mm[Hg] Annika cyndie Ellison pulse rate 111 /min Frances Rodriguez l oxygen saturation, oximetry 93 % Frances Ellison respiratory rate E&M 16 /min Frances Ellison weight E&M 226 [lb_av] Frances Piercebel l height E&M 65 [in_i] Frances Campbel l Body Mass Index (Ratio) 37.27 kg/m2 Bhavin edu Kuo blood pressure, call tolic, second observation 73 mm[Hg] Stacy Auguste MD blood pressure, systolic, second observat ion 142 mm[Hg] Stacy Auguste MD oxygen saturation, oximetry 99 % Frances Ellison pulse rate 96 /min Francescyndie Pelayobel l blood pressure, diastolic 79 mm[Hg] Cy ntdeva Ellison blood pressure, systolic 172 mm[Hg] Annika cyndie Ellison respiratory rate E&M 18 /min Frances Ellison blood pressure, cuff size regular Cy aneta Ellison weight E&M 224 [lb_av] Frances pretty temperature site temporal Rosaura Tank sley temperature E&M 97.5 [degF] Rosaura Tanks sydnee height E&M 65 [in_i] Frances pretty Body Mass Index (Ratio) 38.77 kg/m2 Alexander Auguste MD blood pressure, cuff size regular Cy aneta Ellison blood pressure, diastolic 70 mm[Hg] Cy aneta Ellison blood pressure, systolic 136 mm[Hg] Annika Ellison oxygen saturation, oximetry 93 % Frances Ellison respiratory rate E&M 16 /min Frances Ellison pulse rate 98 /min Frances pretty weight E&M 233 [lb_av] Frances pretty height E&M 65 [in_i] Frances pretty Body Mass Index (Ratio) 37.77 kg/m2 Alexander Auguste MD blood pressure, diastolic 70 mm[Hg] Mp [facility] blood pressure, systolic 130 mm[Hg] Missy shearer [place] oxygen saturation, oximetry 97 % [facility] respiratory rate E&M 16 /min [facility] 79 [facility] weight E&M 227 [lb_av] Tatum Mendiola height E&M 65 [in_i] [facility] Body Mass Index (Ratio) 37.60 kg/m2 Alexander Auguste MD blood pressure, diastolic 80 mm[Hg] Mp [facility] blood pressure, systolic 140 mm[Hg] Missy shearer [place] oxygen saturation, oximetry 95 % [facility] respiratory rate E&M 16 /min Treichlers Mendiola pulse rate 96 /min Tatum Mendiola weight E&M 226 [lb_av] Tatum Mendiola height E&M 65 [in_i] Tatum Mendiola Body Mass Index (Ratio) 39.43 kg/m2 Nguyen ssa Puhse blood pressure, diastolic 88 mm[Hg] Da salas Jurgen blood pressure, systolic 168 mm[Hg] Dac ia Jurgen oxygen saturation, oximetry 94 % Rosanna Gretna respiratory rate E&M 16 /min Rosanna V oss pulse rate 99 /min Rosanna [place] weight E&M 237 [lb_av] Rosanna Jurgen height E&M 65 [in_i] [facility] Body Mass Index (Ratio) 38.44 kg/m2 Alexander Auguste MD blood pressure, cuff size regular Cy chitodevanisha Scot blood pressure, diastolic 70 mm[Hg] Cy aneta Ellison blood pressure, systolic 140 mm[Hg] Annika Ellison oxygen saturation, oximetry 93 % Frances Ellison respiratory rate E&M 16 /min Frances Soct pulse rate 77 /min Frances Michael l weight E&M 231 [lb_av] Frances Piercebel l height E&M 65 [in_i] Frances Campbel l ALLERGIES No Known Drug Allergies RESULTS Date Observation Value Provider Reference Range Interpretation Location 8 LDL cholesterol, serum 96 mg/dL Stacy Auguste MD HISTORY OF MEDICATION USE Medication Status Instructions Dates Provider Indications Com ments lisinopril 5 mg tablet active Take 1 tablet by mouth twice a day Ami Mcbride nystatin 100,000 unit/gram cream active Devika Storey #30, 15 days supply, Prescribed by MODESTA BEEBE, Filled 06/21/2020 triamcinolone acetonide 0.1% cream active Apply to skin twice a day as needed Devika Storey #30, 15 days supply, Prescribed by MODESTA BEEBE, Filled 06/21/2020 lorazepam 0.5 mg tablet active Take 1 tablet by mouth once a day Devika Storey #30, 30 days supply, Prescribed by ADITYA LOPEZ, Filled 06/19/2020 metformin 500 mg tablet extended release 24 hr active Take 1 tablet by mouth twice a day Frances Ellison rosuvastatin 20 mg tablet active Take 1 tablet by mouth once a day Frances Ellison ropinirole 0.25 mg tablet completed Take 1 tablet by mouth once a day - Frances Ellison tizanidine 4 mg capsule active Take 1 capsule by mouth every night Frances Ellison lisinopril 5 mg tablet completed 1 tablet by mouth once a day - tSacy Auguste MD metoprolol succinate 25 mg tablet extended release 24 hr active 1 tablet by mouth once a day Stacy Auguste MD Flonase Allergy Relief 50 mcg/actuation spray,suspensio n active [place] into both nostrils twice a day Marla Li alprazolam 0.25 mg tablet active Take 1 tablet by mouth once a day as needed Frances Ellison VITAMIN D (ERGOCALCIFEROL ) 94296 UNIT ORAL CAPSULE completed Take once a week - Tatum Mendiola esomeprazole magnesium 20 mg capsule,delayed release(DR/EC) completed Take capsule by mouth once a day - Frances Ellison loratadine 10 mg tablet active Take tablet by mouth once a day Frances Ellison montelukast 10 mg tablet active Take tablet by mouth once a day Frances Ellison venlafaxine 75 mg tablet extended release 24hr active Take tablet by mouth once a day Frances Ellison levothyroxine 200 mcg tablet active Take 1 tablet by mouth once a day Marla Li SOCIAL HISTORY Date Observation Value Provider smoking status Never smoker Stacy amaya MD social history reviewed E&M revi ewed - no changes required Stacy Auguste MD social history reviewed E&M revi ewed - no changes required Stacy Auguste MD social history reviewed E&M revi ewed - no changes required Stacy Auguste MD smoking status Never smoker Marla Li smoking status Never smoker Stacy amaya MD social history reviewed E&M revi ewed - no changes required Stacy Auguste MD social history E&M S moking History: P atient has never smoked. Chidi Kuo social history reviewed E&M revi ewed - no changes required Chidi Kuo smoking status Never smoker Frances delgadillo social history E&M S moking History: P atient has never smoked. Stacy Auguste MD social history reviewed E&M revi ewed - no changes required Stacy Auguste MD smoking status Never smoker Frances delgadillo social history E&M S moking History: P atient has never smoked. Stacy Auguste MD social history reviewed E&M revi ewed - no changes required Stacy Auguste MD smoking status Never smoker Frances Handy delgadillo social history E&M S moking History: P atient has never smoked. Stacy Auguste MD social history reviewed E&M revi ewed - no changes required Stacy Auguste MD smoking status Never smoker Tatum brothers social history E&M S moking History: P atient has never smoked. Stacy Auguste MD social history reviewed E&M revi ewed - no changes required Stacy Auguste MD smoking status Never smoker Tatum brothers social history E&M S moking History: [place] st[place] has never smoked. Stacy Auguste MD social history reviewed E&M revi ewed - no changes required Stacy Auguste MD smoking status Never smoker Rosanna Seaman number of grandchildren Stacy Auguste MD social history E&M S moking History: [place] has never smoked. Stacy Auguste MD social history reviewed E&M revi ewed - no changes required Stacy Auguste MD smoking status Never smoker Frances Pelayolouisa delgadillo FAMILY HISTORY Family Member Condition Son Family History of Hy pertension: Full Brother Family History of Hy perlipidemia: Father Family History of Hy pertension: Father Family History of Di abetes: Father Family History of As thma: Mother Family History of Hy perlipidemia: Mother Family History of CV A or Stroke: Mother Family History of Ar thritis: INSURANCE PROVIDERS Payer name Policy type / Coverage type [employer] party ID [facility] MEDIC[facility] ADVANTAGE (PPO) Other [id number] ADVANCE DIRECTIVES Name Date [employer] Date Name Performer [id number],C,C ontinues on Rosuvastatin. We aim for an LDL <70. Stacy Auguste MD [id number],C,T he patient is using CPAP on a regular basis. The patient has been benefiting from therapy and should continue use. Stacy Auguste MD [id number],C,On levothyrox ine. Stacy Auguste MD [id number],C,On metformin 500mg BID. Stacy Auguste MD [id number],C,B P elevated, dietary compliance stressed. Also asked her to increase lisinopril to 10mg daily, and monitor BP on a regular basis. Stacy Auguste MD [id number],C, W eight loss advised Stacy Auguste MD [id number],C, C ontinues on replacement therapy. Stacy Auguste MD [id number],C, C ontinues on Rosuvastatin. We aim for an LDL <70. Stacy Auguste MD [id number],C, C ontinues on Metformin. Stacy Auguste MD [id number],C, H er echo 08/24/2020 showed normal LV function. EF 60%. Nuclear stress test 08/24/2020 showed normal perfusion. The patient has been reassured. Weight reduction advised. Stacy Auguste MD [id number],C, B P today elevated at 150/83. Advised she monitor at home. Stacy Auguste MD [id number],C, A bdominal US 06/2020 showed nodular liver contour suggesting cirrhosis. Follows with S[employer]IOR [employer] DEVELOPER at [facility] whose name she cannot recall. Will obtain bloodwork from PCP. Stacy Auguste MD [id number],C,T he patient is using CPAP on a regular basis. The patient has been benefiting from therapy and should continue use. Stacy Auguste MD [id number],C,C ontinues on Metformin. Stacy Auguste MD [id number],C,C ontinues on Rosuvastatin. We aim for an LDL <70. Stacy Auguste MD [id number],C,B P control is satisfactory. Stacy Auguste MD [id number],C,H er recent echo 08/24/2020 showed normal LV function. EF 60%. Recent nuclear stress test 08/24/2020 showed normal perfusion. The patient has been reassured. Weight reduction advised. Stacy Auguste MD Cardiology:Continues on Rosuvastatin. We aim for an LDL <70. Stacy Auguste MD Cardiology:The patie nt is using CPAP on a regular basis. The patient has been benefiting from therapy and should continue use. Stacy Aguuste MD Cardiology:On levothyroxine. Tai Auguste MD Cardiology:On metformin 500mg BI D. Stacy Auguste MD Cardiology:BP elevat ed, dietary compliance stressed. Also asked her to increase lisinopril to 10mg daily, and monitor BP on a regular basis. Stacy Auguste MD Cardiology: W eight loss advised Stacy Auguste MD Cardiology: C ontinues on replacement therapy. Stacy Auguste MD Cardiology: C ontinues on Rosuvastatin. We aim for an LDL <70. Stacy Auguste MD Cardiology: C ontinues on Metformin. Stacy Auguste MD Cardiology: H er echo 08/24/2020 showed normal LV function. EF 60%. Nuclear stress test 08/24/2020 showed normal perfusion. The patient has been reassured. Weight reduction advised. Stacy Auguste MD Cardiology: B P today elevated at 150/83. Advised she monitor at home. Stacy Auguste MD Cardiology: A bdominal US 06/2020 showed nodular liver contour suggesting cirrhosis. Follows with S[employer]IOR [employer] DEVELOPER at [facility] whose name she cannot recall. Will obtain bloodwork from PCP. Stacy Auguste MD Cardiology:The patie nt is using CPAP on a regular basis. The patient has been benefiting from therapy and should continue use. Stacy Auguste MD Cardiology:Continues on Metformin. Stacy Auguste MD Cardiology:Continues on Rosuvastatin. We aim for an LDL <70. Stacy Auguste MD Cardiology:BP contro l is satisfactory. Stacy Auguste MD Cardiology:Her recen t echo 08/24/2020 showed normal LV function. EF 60%. Recent nuclear stress test 08/24/2020 showed normal perfusion. The patient has been reassured. Weight reduction advised. Stacy Auguste MD Cardiology:Continues on Metformin. Stacy Auguste MD Cardiology:The patie nt is using CPAP on a regular basis. The patient has been benefiting from therapy and should continue use. Stacy Auguste MD Cardiology:Continues on Rosuvastatin. We aim for an LDL <70. Stacy Auguste MD Cardiology:BP contro l is satisfactory at 130/70. Stacy Auguste MD Cardiology:Abdominal US 06/2020 showed nodular liver contour suggesting cirrhosis. Stacy Auguste MD Cardiology:Will do regadenoson s tress test and echo. Stacy Auguste MD Cardiology: Advised to continue use of compression stockings of 20-30mm Hg to improve swelling. Stacy Auguste MD Cardiology follow up :Continues on replacement therapy. Chidi jarek Cardiology follow up :Weight los s advised Chidi Kuo Cardiology follow up :Intermittent leg swelling persists. Advised to use compression stockings of 20-30mm Hg to improve swelling. Chidi Kuo Cardiology follow up :The patient is using CPAP on a regular basis. The patient has been benefiting from therapy and should continue use. Chidi Kuo Cardiology follow up :Continues on Rosuvastatin. We aim for an LDL <70. Chidi Kuo Cardiology follow up :Continues on Metformin. Reduced intake of carbohydrates and sugars advised. Chidi jarek Cardiology follow up :Blood pressure and heart rate elevated today. Unclear etiology. Advised reduced sodium intake and routine monitoring of the blood pressure. We aim for blood pressure less than 130/80. No changes to antihypertensives made today. Chidi Kuo Cardiology:Weight loss advised Marcia Kuo Cardiology:Intermitt ent leg swelling persists. Advised to use zippered compression stockings to improve swelling. Chidi Cardiology:Recently started on R osuvastatin. Chidi Cardiology:Continues on Metformi n. Chidi Cardiology:Blood pre ssures elevated. Will increase Lisinopril to 5mg daily. Chidi Kuo Cardiology follow up :Weight los s advised. Stacy Auguste MD Cardiology follow up :The patient is using CPAP on a regular basis. The patient has been benefiting from therapy and should continue use. Stacy Auguste MD Cardiology follow up :Intermittent leg swelling persists. Advised to use zippered compression stockings to improve swelling. Stacy Auguste MD Cardiology follow up :Continues on replacement therapy. Stacy Auguste MD Cardiology follow up :Diet controlled. Her last LDL was 96. Stacy Auguste MD Cardiology follow up :Blood pressure control is satisfactory. Stacy Auguste MD Cardiology:Continues on replacement therapy. Stacy Auguste MD Cardiology:The patie nt is using CPAP on a regular basis. The patient has been benefiting from therapy and should continue use. Stacy Auguste MD Cardiology:Diet controlled. Her last LDL was 96. Stacy Auguste MD Cardiology:Recent ve nous doppler showed significant venous insufficiency of the left lower extremity. A prescripition for compression stockings has been given. Stacy Auguste MD Cardiology:Much impr brad on Metoprolol which she continues. Stacy Auguste MD Cardiology:The patie nt is using CPAP on a regular basis. The patient has been benefiting from therapy and should continue use. Stacy Auguste MD Cardiology:Continues on replacement therapy. Stacy Auguste MD Cardiology:Diet cont rolled. We await blood results from your office. Stacy Auguste MD Cardiology:Elevated blood pressure and heart rate. Will start Metoprolol Succinate 25mg. Stacy Auguste MD Cardiology follow up :She did undergo an ultrasound and reports that it was normal. She has an appointment with GI. Stacy Auguste MD Cardiology follow up:Continues o n Eomeprazole. Stacy Auguste MD Cardiology follow up:Continues o n replacement therapy. Stacy Auguste MD Cardiology follow up :Dietary compliance has been stressed which includes reduction of salt intake to less than 2g per day. Weight reduction has also been advised. Stacy Auguste MD Cardiology follow up :The patient is to monitor and record her blood pressure readings on a daily basis. Dietary compliance has been stressed which includes reduction of salt intake to less than 2g per day. Weight reduction has also been advised. Stacy Auguste MD Cardiology follow up :Dietary compliance has been stressed which includes reduction of salt intake to less than 2g per day. Weight reduction has also been advised. Stacy Auguste MD Cardiology New Patient :Weight l oss advised. Stacy Auguste MD Cardiology New Patie nt :She is planned to have a sleep study. Stacy Auguste MD Cardiology New Patie nt :Continues on Esomeprazole Magnesium 20 Mg daily Stacy Auguste MD Cardiology New Patient :On repla cement therapy. Stacy Auguste MD Cardiology New Patie nt :She is planned to undego an ultrasound of her abdomen as well as her gallbladder. Stacy Auguste MD Cardiology New Patie nt :Her recent panel sent by your office shows borderline elevation of LDL. I feel that she will benefit from weight reduction as well as reduced intake of saturated fats and refined sugars. We can then repeat her lipid panel in 8-10 weeks. Stacy Auguste MD Date Name Stress Regadenoson Complete Echo Complete Echo Venous Doppler Bilat eral LE - Reflux Renal Artery Duplex Complete Echo HISTORY OF PROCEDURES Procedure Date Procedure Name Provider Procedure Notes S tatus EKG Stacy Auguste MD complet ed EKG Stacy Auguste MD complet ed EKG Stacy Auguste MD complet ed EKG Stacy Auguste MD complet ed EKG Stacy Auguste MD complet ed EKG Stacy Auguste MD complet ed EKG Stacy Auguste MD complet ed EKG Stacy Auguste MD complet ed EKG Stacy Auguste MD complet ed EKG Stacy Auguste MD complet ed
== END 2024-03-10 15:00 | disposition home or self-care (01) ==
PROVIDERS: PCP Internal Medicine; Visit Provider Orthopaedic Surgery
DX: M19.011 Primary osteoarthritis, right shoulder (principal); M25.411 Effusion, right shoulder; M24.011 Loose body in right shoulder
CPT/HCPCS: 73200

== ENCOUNTER 2024-03-21 13:20 | Emergency (ER) | payer MEDICARE, SELFPAY ==
--- OUTSIDE RECORDS SUMMARY | 2024-03-21 13:22 | XMS_ITS | Clinical Summary ---
Author Organization [facility] Facility Address [address] [place] [address] Care Team Providers Care News Gathering Technician Name Role Phone Syo Joyce MD Primary Care Provider [phone] Medications olmesartan (BENICAR) 5 MG tablet Take 1 tablet (5 mg total) by mouth 1 (one) time each day 90 tablet 1 12/30/2023 Active Encounters Date Type Department Care Team Description 03/05/2024 Documentation Only [email or web address], [address] [address] Antwan Arora DO 03/03/2024 Documentation Only [email or web address], [address] [address] Antwan Arora DO 03/02/2024 4:00 PM BORDER POLICE Office Visit [email or web address], [address] [place] [address] Antwan Arora DO Stage 3a chronic kidney disease (HCC) (Primary Dx); Persistent proteinuria; Obstructive sleep apnea syndrome; Hepatic fibrosis with hepatic sclerosis; Hypertensive chronic kidney disease; Type 2 diabetes mellitus with diabetic chronic kidney disease (HCC); Pure hypercholesterolemia, not otherwise specified; Other specified hypothyroidism 03/02/2024 Documentation Only [email or web address], [address] [phone] Antwan Arora DO 03/02/2024 Documentation Only [address] [phone] Antwan Arora DO 02/06/2024 Documentation Only [address] [phone] Antwan Arora DO 12/30/2023 2:00 PM BORDER POLICE Office Visit [facility] [address] [address] Antwan Arora DO Stage 3a chronic kidney disease (HCC) (Primary Dx); Persistent proteinuria; Obstructive sleep apnea syndrome; Hepatic fibrosis with hepatic sclerosis; Hypertensive chronic kidney disease; Type 2 diabetes mellitus with diabetic chronic kidney disease (HCC); Pure hypercholesterolemia, not otherwise specified; Other specified hypothyroidism 12/30/2023 Refill [facility] [address] [address] Liv Lynch CMA from Last 3 [...] Comments Blood Pressure 110/60 03/02/2024 3:49 PM BORDER POLICE Pulse 68 03/02/2024 3:49 PM BORDER POLICE Temperature 36.7 C (98 F) 03/02/2024 3:49 PM BORDER POLICE Respiratory Rate 18 03/02/2024 3:49 PM BORDER POLICE Oxygen Saturation 97% 03/02/2024 3:49 PM BORDER POLICE Inhaled Oxygen Concentration - - Weight 99.3 kg (219 lb) 03/02/2024 3:49 PM BORDER POLICE Height - - Body Mass Index - - Plan of Treatment Upcoming Encounters Date Type Department Care Team (Late st Contact Info) Description 08/31/2024 12:30 PM CDT Office Visit [facility] 2043 [facility] [address] [place] [address] Antwan Arora DO [address] [place] [phone] Health Maintenance Due Date Last Done Comments Hepatitis B Vaccine (1 of 3 - Risk 3-dose series) 2003 Influenza Vaccine (#1) 2023 0, 12/11/2018, 12/01/2017, Additional history exists Diabetes: Hemoglobin A1C 10/28/2023 Diabetes: Ophthalmology Exam 10/28/2023 Diabetes: Pedal Pulse Checked 10/28/2023 Diabetes: Sensory Foot Exam 10/28/2023 Diabetes: Visual Foot Exam 10/28/2023 Pneumococcal Vaccine: 65+ Years Completed 9, 03/17/2017 Insurance [employer] MCR ADV PPO ([id number]) Advance Directives Documents on File Type Date Recorded Patient Gum Sprayer Expl anation Advance Care Planning 01/02/2024 12:13 PM Care Teams News Gathering Technician Relationship Specialty Start Date End Date Soy Joyce MD [address] [facility], [address] [place] [address] PCP - General Internal Medicine 09/25/23
--- OUTSIDE RECORDS SUMMARY | 2024-03-21 13:22 | XMS_ITS | Continuity of Care Document ---
Author Organization [facility] Address [address] [place] [address] [address] [place] [address] Phone Care Team Providers Care Service Associate Name Role Phone Jurgen Diallo Unavailable Unavailable Procedures Procedure Date Post-op Follow-up Visit Post-op Follow-up Visit Remove Cataract, Insert Lens Eye Exam, New Patient Echo Exam Of Eye Advance Directives Directive Yes / No Effective Date File Name No Information Encounters Encounter Description Practice Location Reason(s) For Visit Diagnoses Date Provider Providers Copied on Encounter [facility], [address] [place] [address] [address], [place], [place], [id number], tel:[phone] [facility] [place] No Information [address]. [address] [place] [address] , [address], [place], [place], [facility], . tel:[phone] Referring Provider: Fernie Byers, [address] [place] [address], [facility]. tel:[phone] [facility], [address] [place] [address] [address], [place], [place], [id number], tel:[phone] [facility] No Information [address] Semaan. [address] [place] [address] , [address], [place], [place], [facility], [place]. tel:[phone] Referring Provider: Fernie Byers, [address] [place] [address], [facility]. tel:[phone] [facility], [address], [place], [place], [id number], tel:[phone] [facility] No Information [facility]. [address] [facility] , [address], [place], [place], [facility], . tel:[phone] Referring Provider: Fernie Byers, [address] [place] [address], [facility]. tel:[phone] [facility], [address], [place], [place], [id number], tel:[phone] [facility] No Information [facility] [place]. [facility] , [address], [place], [facility], . tel:[phone] Referring Provider: Fernie Byers, [address] [place] [address], [facility]. tel:[phone] Family History Family Member Type Diagnosis Age At Onset No Information Payers Payer name Insurance type Covered constitution party ID Authoriza tion(s) No Information Social [...]
--- OUTSIDE RECORDS SUMMARY | 2024-03-21 13:22 | XMS_ITS | Clinical Summary ---
Author Organization [facility] Address [address] [place] [address] Care Team Providers Care Behavioral Specialist Name Role Phone Soy Joyce MD Primary Care Provider Allergies No known active allergies Medications rosuvastatin (CRESTOR) 20 mg tablet rosuvastatin 20 mg tablet TAKE 1 TABLET BY MOUTH EVERY DAY Active metoprolol succinate (TOPROL XL) 25 mg Extended Release 24 hour tablet metoprolol succinate ER 25 mg tablet,extended release 24 hr TK 1 T PO QD Active lisinopriL (PRINIVIL) 5 mg tablet 50 mg. 0 Active ONETOUCH ULTRA BLUE TEST STRIP Strip U TO CHECK BS ONCE D AND PRN 0 Active loratadine (CLARITIN) 10 mg tablet Take by mouth. 8 Active semaglutide (Ozempic) 0.25 mg or 0.5 mg(2 mg/1.5 mL) Pen Injector Take 1 mg by mouth daily. 3 Active levothyroxine 150 mcg tablet Take 100 Tablets by mouth daily. 4 Active diclofenac sodium (VOLTAREN) 75 mg Tablet, Delayed Release (E.C.) Take 75 mg by mouth 2 times daily. Active venlafaxine (EFFEXOR XR) 75 mg Extended Release 24 hour capsule Take 1 Capsule by mouth daily. 3 Active montelukast (SINGULAIR) 10 mg tablet Take 10 mg by mouth daily at bedtime. Active mv-min/iron/foli c/calcium/vitK (WOMEN'S MULTIVITAMIN ORAL) Take by mouth. 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 Encounters Date Type Department Care Team Description 03/12/2024 Abstract [facility] Oncology and Hematology - [place] [address] [place] [address] Danny Heart MD 03/11/2024 Telephone [facility] Hematology [address] [place] [address] Danny Heart MD Surgical Clearance 03/04/2024 External Device Data STL ABSTRACTION Provider, Abstract 03/02/2024 External Device Data STL ABSTRACTION Provider, Abstract from Last 3 Months Family History Medical History Relation Name Comments Diabetes Father Relation Name Status Comments Brother Alive Father Mother Social History Tobacco Use Types Packs/Day Years Used Date Smoking Tobacco: Never Smokeless Tobacco: Never Tobacco Cessation:Counseling Given: Not Answered Alcohol Use Standard Drinks/Week Comments No 0 (1 standard drink = 0.6 oz pur e alcohol) Comments No Sex and Gender Information Value Date Recorded Sex Assigned at Not on file Legal Sex Female 1:42 PM CDT Gender Identity Not on file Sexual Orientation Not on file Last Filed Vital Signs Vital Sign Reading Time Taken Comments Blood Pressure 127/73 12/10/2023 8:53 AM CDT Pulse 91 12/10/2023 8:53 AM CDT Temperature 36.6 C (97.8 F) 12/10/2023 8:53 AM CDT Respiratory Rate 15 12/10/2023 8:53 AM CDT Oxygen Saturation 93% 12/10/2023 8:53 AM CDT Inhaled Oxygen Concentration - - Weight 99 kg (218 lb 3.2 oz) 12/10/2023 8:53 AM CDT Height 163.8 cm (5' 4.5 ) 03/13/2021 10:16 AM CS T Body Mass Index 36.88 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 [address] [place] [address] Danny Heart MD [address] [facility] [address] [place] [address] Health Maintenance Due Date Last Done Comments DIABETES ANNUAL FOOT EXAM 1961 DIABETES ANNUAL RETINAL EXAM 1961 ZOSTER VACCINE (1 of 2) 1993 RSV VACCINE (60+ or ) (1 - 1-dose 75+ series) 2018 DIABETES HBA1C Q 6 MONTHS 12/22/20202020, 02/28/2020, 02/24/2020 DIABETES MICROALBUMIN ANNUAL SCREEN 02/23/2021 02/24/2020 LDL CHOLESTEROL ANNUAL 06/21/2021 1, 02/24/2020, 02/08/2020 INFLUENZA VACCINE (#1) 2023 3, 11/21/2021, 12/13/2020, Additional history exists COVID-19 Vaccine (5 - 2023-2 5 season) 2023 07/31/2021, 03/14/2021, 04/30/2020, Additional history exists [place] Preventative Visit/Annual Wellness Visit 02/11/2024 DTAP/TDAP/TD VACCINES (2 - T d or Tdap) 12/05/2029 12/06/2019 PNEUMOCOCCAL VACCINE 65+ YEARS Completed 05/19/2018 , 03/17/2017 COLORECTAL SCREENING Discontinued 08/04/2019 Colorectal Cancer Screening Discontinued OSTEOPOROSIS SCREENING Completed 04/22/2022 FIT-DNA Q 3 years Discontinued FIT/FOBT Q 1 year Discontinued Flex Sig/CT Colonography Q 5 years Discontinued Procedures Procedure Name Priority Date/Time Associated Diagnosis Comments LIPID PANEL Routine 06/21/2020 HEMOGLOBIN A1C Routine 06/21/2020 MICROALBUMIN, RANDOM URINE Routine 02/24/2020 from Last 3 Months or Most Recently Relevant to Health Maintenance Results * HEMOGLOBIN A1C (06/21/2020) Blood us Abstract Provider CHEMISTRY ORDERABLES Final Res ult * LIPID PANEL (06/21/2020) Blood us Abstract Provider CHEMISTRY ORDERABLES Final Res ult * MICROALBUMIN, RANDOM URINE (02/24/2020) Urine URINE SPECIMEN OBTAINED BY CLEAN CATCH PROCEDURE / Unknown us Abstract Provider URINE ORDERABLES Final Result from Last 3 Months or Most Recently Relevant to Health Maintenance Insurance [employer] PPO MCR Care Teams Behavioral Specialist Relationship Specialty Start Date End Date Soy Joyce MD PCP - General Internal Medicine 12/23/17
--- OUTSIDE RECORDS SUMMARY | 2024-03-21 13:23 | XMS_ITS | Clinical Summary ---
Author Organization [facility] Address [address] [facility] [place] [address] Care Team Providers Care Freezer Person Name Role Phone Soy Joyce MD Primary Care Provider Source Comments [facility],non-owned Affiliates and Associated Physician Practices is amultiple site organization consisting of ambulatory clinics and hospital sitesin [place], [place], [place] and [place]. This disclosure is being madepursuant to the Care Everywhere program and may not contain all information available regarding this patient. Last updated 17.[facility] Allergies No known active allergies Medications * [...] d(List Clean-Up) Cholecalciferol (vitamin D3) 1.25 MG (95803 UT) capsule Take 1 (one) capsule by [...] Encounters Date Type Department Care Team Description 03/15/2024 Telephone [facility] [address] [place] [address] Anastasia Gandhi APRN-CNP Results 03/04/2024 11:47 AM OUT PATIENT THERAPIST - 03/04/2024 11:59 PM OUT PATIENT THERAPIST Hospital Encounter [facility] OP DRAW STATION [address] [place] [address] Anastasia Gandhi, HARBORMASTER-MARY JO Discharge Disposition: Home or Self Care 03/04/2024 11:00 AM OUT PATIENT THERAPIST Office Visit [facility] [address] [place] [address] Anastasia Gandhi, HARBORMASTER-MARY JO 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); Metabolic dysfunction-associated steatohepatitis (MASH); Thrombocytopenia, unspecified (HCC); Metabolic syndrome 03/04/2024 10:05 AM OUT PATIENT THERAPIST - 03/04/2024 11:46 AM OUT PATIENT THERAPIST Hospital Encounter [facility] US [address] [place] [phone] Anastasia Gandhi APRN-CNP Discharge Disposition: Home or Self Care 03/04/2024 Orders Only [facility] [address] [facility], [place] [phone] Anastasia Gandhi APRN-CNP 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) ; [...] Comments Blood Pressure 133/72 03/04/2024 10:58 AM OUT PATIENT THERAPIST Pulse 92 03/04/2024 10:58 AM OUT PATIENT THERAPIST Temperature 37.2 C (99 F) 03/04/2024 10:58 AM OUT PATIENT THERAPIST Respiratory Rate 18 02/13/2023 10:1 3 AM OUT PATIENT THERAPIST Oxygen Saturation 95% 03/04/2024 10: 58 AM OUT PATIENT THERAPIST Inhaled Oxygen Concentration - - Weight 100.1 kg (220 lb 9.6 oz) 025 10:58 AM OUT PATIENT THERAPIST Height 165.1 cm (5' 5 ) 03/04/2024 10:5 8 AM OUT PATIENT THERAPIST Body Mass Index 36.71 03/04/2024 10:58 AM OUT PATIENT THERAPIST Plan of Treatment Upcoming Encounters Date Type Department Care Team (Late st Contact Info) Description 04/03/2024 9:30 AM OUT PATIENT THERAPIST Appointment [facility] MRI [address] [place] [phone] Anastasia Gandhi APRN-CNP [address] [facility] [address] [place] [address] Health Maintenance Due Date Last Done Comments [...] PROTEIN SCREENING 02/11/2024 11/27/2022, 03/05/2022 MEDICARE AWV CALENDAR YEAR 2024 DIABETES-SERUM CREATININE 03/04/20252024, 11/27/2022, [...] Medication Management General On track( 10:55 AM OUT PATIENT THERAPIST) No Lana Shultz, RN Note: Expected end date: Ongoing Interventions: Take all medications as prescribed Let your doctor know right away about any changes in your medications Make sure to request a refill of your medication at least one week prior to your last dose Safety General On track( 11:03 AM OUT PATIENT THERAPIST) No Neida Javed, RN Note: Expected end [...] Name Priority Date/Time Associated Diagnosis Comments PT-INR [facility] Routine 03/04/2024 12:25 PM OUT PATIENT THERAPIST 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) Liver lesion COMPREHENSIVE METABOLIC PANEL Routine 03/04/2024 12:25 PM OUT PATIENT THERAPIST 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) Liver lesion CBC W AUTO DIFFERENTIAL Routine 03/04/2024 12:25 PM OUT PATIENT THERAPIST 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) Liver lesion ALPHA FETOPROTEIN BLOOD TUMOR MARKER Routine 03/04/2024 12:25 PM OUT PATIENT THERAPIST 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) Thrombocytopenia, unspecified (HCC) Metabolic syndrome US ABDOMEN LIMITED Routine 03/04/2024 10 :33 AM OUT PATIENT THERAPIST 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) MICROALB/CREAT RATIO URINE (EXTERNAL RESULT ENTRY) Routine 11/27/2022 9:45 AM CDT HEMOGLOBIN A1C (EXTERNAL RESULT ENTRY) Routine 11/27/2022 9:45 AM CDT from Last 3 Months or Most Recently Relevant to Health Maintenance Results * PT-INR [facility] (03/04/2024 12:25 PM OUT PATIENT THERAPIST) PT 13.6 12.1 - 14.8 Seconds 03/04/2024 12:59 PM OUT PATIENT THERAPIST [facility] INR 1.1 See Comment 03/04/2024 12:59 PM OUT PATIENT THERAPIST [facility] Comment:The suggested therap eutic range for standard coumadin (warfarin) therapy is an INR of 2.0-3.0. For high-risk patients (Mechanical Mitral Valve Prosthesis, etc.), the suggested prophylactic therapeutic range is an INR of 2.5-3.5. Blood BLOOD SPECIMEN / Unknown Lab Venipuncture / Unknown 03/04/2024 12:25 PM OUT PATIENT THERAPIST 03/04/2024 12:34 PM OUT PATIENT THERAPIST Anastasia Gandhi [facility] - COAGU LATION ORDERABLES Performing Organization Address City/[facility]/ZIP Co de Phone Number [address] [address], [facility] [phone] * ALPHA FETOPROTEIN BLOOD TUMOR MARKER (03/04/2024 12:25 PM OUT PATIENT THERAPIST) [facility] Alpha-Fetoprote in Tumor Marker 6.7 <=8.3 ng/mL 03/04/2024 1:22 PM [facility] Comment: AFP values will vary depending on testing procedure used. Results are not comparable across different methods. AFP values obtained by [facility] using an [employer] Immunoassay. Blood BLOOD SPECIMEN / Unknown Lab Venipuncture / Unknown 03/04/2024 12:25 PM OUT PATIENT THERAPIST 03/04/2024 12:32 PM OUT PATIENT THERAPIST Anastasia Gandhi [facility] - CHEMI STRY ORDERABLES Performing Organization Address City/[facility]/ZIP Co de Phone Number [address] [address], [place] [phone] * (ABNORMAL) CBC WITH DIFFERENTIAL (03/04/2024 12:25 PM OUT PATIENT THERAPIST) [facility] WBC 5.5 4.0 - 10.7 x10E9/L 03/04/2024 12:39 PM OUT PATIENT THERAPIST [facility] RBC Count 4.76 3.90 - 5.20 x10E12/L 03/04/2024 12:39 PM [facility] Hemoglobin 14.6 11.9 - 15.8 g/dL 03/04/2024 12:39 PM [facility] Hematocrit 45.8 34.8 - 46.1 % 03/04/2024 12:39 PM [facility] MCV 96.2 80.0 - 98.0 fL 03/04/2024 12:39 PM [facility] MCH 30.7 26.7 - 33.6 pg 03/04/2024 12:39 PM [facility] MCHC 31.9 31.7 - 36.3 g/dL 03/04/2024 12:39 PM [facility] RDW-CV 13.7 11.3 - 14.8 % 03/04/2024 12:39 PM [facility] Platelet Count 149(L) 150 - 420 x10E9/L 03/04/2024 12:39 PM [facility] MPV 9.4 7.8 - 11.4 fL 03/04/2024 12:39 PM [facility] Neutrophil % 60.8 41.0 - 74.0 % 03/04/2024 12:39 PM [facility] Lymphocyte % 26.5 17.0 - 47.0 % 03/04/2024 12:39 PM [facility] Monocyte % 9.6 3.0 - 11.0 % 03/04/2024 12:39 PM [facility] Eosinophil % 2.2 0.0 - 7.0 % 03/04/2024 12:39 PM [facility] Basophil % 0.7 0.0 - 1.6 % 03/04/2024 12:39 PM [facility] Immature Granulocytes % 0.2 0.0 - 1.0 % 03/04/2024 12:39 PM [facility] Neutrophil Absolute 3.37 1.60 - 7.50 x10E9/L 03/04/2024 12:39 PM [facility] Lymphocyte Absolute 1.47 1.00 - 4.40 x10E9/L 03/04/2024 12:39 PM [facility] Monocyte Absolute 0.53 0.15 - 1.00 x10E9/L 03/04/2024 12:39 PM [facility] Eosinophil Absolute 0.12 0.00 - 0.60 x10E9/L 03/04/2024 12:39 PM [facility] Basophil Absolute 0.04 0.00 - 0.13 x10E9/L 03/04/2024 12:39 PM [facility] Blood BLOOD SPECIMEN / Unknown Lab Venipuncture / Unknown 03/04/2024 12:25 PM OUT PATIENT THERAPIST 03/04/2024 12:32 PM [facility] Anastasia Gandhi [facility] - HEMAT OLOGY ORDERABLES [facility] [address] [place] [address], [facility] [phone] * (ABNORMAL) COMPREHENSIVE METABOLIC PANEL (03/04/2024 12:25 PM [facility]) BUN 16 7 - 26 mg/dL 03/04/2024 12:59 PM [facility] Creatinine 0.92 0.56 - 0.96 mg/dL 03/04/2024 12:59 PM [facility] Sodium 141 136 - 145 mmol/L 03/04/2024 12:59 PM [facility] Potassium 4.6(H) 3.5 - 4.5 mmol/L 03/04/2024 12:59 PM [facility] Chloride 106 98 - 107 mmol/L 03/04/2024 12:59 PM [facility] CO2 26 22 - 29 mmol/L 03/04/2024 12:59 PM [facility] Glucose 110(H) 70 - 99 mg/dL 03/04/2024 12:59 PM [facility] Calcium 9.7 8.4 - 10.2 mg/dL 03/04/2024 12:59 PM [facility] Protein Total 7.5 6.0 - 8.3 g/dL 03/04/2024 12:59 PM [facility] Albumin 4.0 3.4 - 5.0 g/dL 03/04/2024 12:59 PM [facility] Bilirubin Total 0.6 0.2 - 1.2 mg/dL 03/04/2024 12:59 PM [facility] Alkaline Phosphatase 51 40 - 150 U/L 03/04/2024 12:59 PM [facility] ALT 26 5 - 55 U/L 03/04/2024 12:59 PM [facility] AST 30 5 - 34 U/L 03/04/2024 12:59 PM [facility] Anion Gap 9 6 - 16 03/04/2024 12:59 PM [facility] BUN/Creatinine Ratio 17 7 - 23 03/04/2024 12:59 PM [facility] Osmolality Calculated 294 275 - 295 mOsm/kg 03/04/2024 12:59 PM [facility] Albumin/Globulin Ratio 1.1 1.1 - 2.3 03/04/2024 12:59 PM [facility] eGFR by CKD-EPI 63(L) >=90 mL/min/1.7 3 m2 03/04/2024 12:59 PM [facility] Blood BLOOD SPECIMEN / Unknown Lab Venipuncture / Unknown 03/04/2024 12:25 PM OUT PATIENT THERAPIST 03/04/2024 12:32 PM OUT PATIENT THERAPIST Anastasia Jannie Gandhi [facility] - CHEMI STRY ORDERABLES [facility] [address] [place] [address], [facility] [phone] * US ABDOMEN LIMITED (03/04/2024 10:33 AM OUT PATIENT THERAPIST) Anatomical Region Laterality Modality Abdomen Ultrasound 03/04/2024 10:4 5 AM OUT PATIENT THERAPIST Impressions 03/04/2024 11:22 AM OUT PATIENT THERAPIST Impression: 1.Liver Visualization Score A: No or minimal limitations. 2.US-2 Subthreshold. Repeat surveillance US in 3-6 months. 3.Redemonstrated hepatic cirrhosis with sequela of portal hypertension. Report drafted by Jeff Leggett MD (resident). I, Lila Pool MD have personally reviewed and interpreted this examination/study. > Interpreting Provider: Lila Pool MD on 03/04/2024 11:22 AM Narrative 03/04/2024 11:22 AM OUT PATIENT THERAPIST PROCEDURE: US ABDOMEN LIMITED DATE/TIME OF EXAM: [...] hydronephrosis. No discrete mass identified. Other: None Procedure Note [...] MD on 03/04/2024 11:22 AM Anastasia Gandhi [employer] US ORDERABL ES * MICROALB/CREAT RATIO URINE [...] Recently Relevant to Health Maintenance Care Teams Freezer Person Relationship Specialty Start Date End Date Soy Joyce MD [address] [facility] [address] [place] [address] PCP - General 02/04/21
--- OUTSIDE RECORDS SUMMARY | 2024-03-21 13:23 | XMS_ITS | CONTINUITY OF CARE DOCUMENT ---
Author Name amira collier Address Unknown Organization [facility] Address [address] [place] [address] Phone [phone] Care Team Providers Care Motorcyles Final Inspector Name Role Phone Stacy Auguste MD Unavailable [phone] DAITYA LOPEZ MD Unavailable ADITYA LOPEZ MD Unavailable [phone] PROBLEMS Condition Status Date Provider Notes Family History of CVA or Stroke: completed - Rk Auguste MD Family History of Hyperlipidemia: completed [...] breath with exertion active Yao Auguste MD ENCOUNTERS Date Type Provider Location Encounter Diag nosis - In-person encounter Office Visit Stacy Auguste MD [facility] - In-person encounter Office Visit Stacy Auguste MD [facility] - In-person encounter Office Visit Stacy Auguste MD [facility] - In-person encounter Office Visit Stacy Auguste MD [facility] Shortness of breath with exertion - In-person encounter Office Visit Stacy Auguste MD [facility] - In-person encounter Office Visit Stacy Auguste MD [facility] Diabetes mellitus - In-person encounter Office Visit Stacy Auguste MD [facility] - In-person encounter Office Visit Stacy Auguste MD [facility] Venous insufficiency - In-person encounter Office Visit Stacy Auguste MD [facility] Family History of CVA or Stroke:Family History of Hyperlipidemia:Family History of Hypertension:Family History of Hyperlipidemia:Family History of Hypertension:MINA - On CPAPHTN essential - In-person encounter Office Visit Stacy Auguste MD [facility] HTN essential - In-person encounter Office Visit Stacy Auguste MD [facility] HypothyroidismOSA - On CPAPHyperlipidemiaHx of DVT, [...] MD blood pressure, diastolic 70 mm[Hg] [facility] blood pressure, systolic 130 mm[Hg] Missy shearer Malott oxygen saturation, oximetry 97 % [facility] respiratory rate E&M 16 /min [facility] pulse rate 79 /min [facility] weight E&M 227 [lb_av] Tatum Mendiola height E&M 65 [in_i] [facility] Body Mass Index (Ratio) 37.60 kg/m2 Alexander Auguste MD blood pressure, diastolic 80 mm[Hg] [facility] blood pressure, systolic 140 mm[Hg] Missy shearer Malott oxygen saturation, oximetry 95 % [facility] respiratory rate E&M 16 /min [place] Mendiola pulse rate 96 /min Tatum Mendiola weight E&M 226 [lb_av] Tatum Mendiola height E&M 65 [in_i] Tatum Mendiola Body Mass Index (Ratio) 39.43 kg/m2 Nguyen ssa Puhse blood pressure, diastolic 88 mm[Hg] Da salas Jurgen blood pressure, systolic 168 mm[Hg] Dac ia Jurgen oxygen saturation, oximetry 94 % Rosanna Stockton respiratory rate E&M 16 /min Rosanna V oss pulse rate 99 /min Rosanna Stockton weight E&M 237 [lb_av] Rosanna Jurgen height E&M 65 [in_i] [facility] Body Mass Index (Ratio) 38.44 kg/m2 Alexander Auguste MD blood pressure, cuff size regular Cy chitodevanisha Scot blood pressure, diastolic 70 mm[Hg] Cy aneta Ellison blood pressure, systolic 140 mm[Hg] Annika Ellison oxygen saturation, oximetry 93 % Frances Ellison respiratory rate E&M 16 /min Frances Scot pulse rate 77 /min Frances Michael l [...] tablet by mouth once a day - Stacy Auguste MD metoprolol succinate 25 mg tablet extended release 24 hr active 1 tablet by mouth once a day Stacy Auguste MD Flonase Allergy Relief 50 mcg/actuation spray,suspensio n active [place] into both nostrils twice a day Marla Li alprazolam 0.25 mg tablet active Take 1 tablet by mouth once a day as needed Frances Ellison VITAMIN D (ERGOCALCIFEROL ) 84417 UNIT ORAL CAPSULE completed Take once a [...] Payer name Policy type / Coverage type [employer] party ID [facility] MEDICARE ADVANTAGE (PPO) Other [id number] ADVANCE DIRECTIVES Name Date [employer] Date Name Performer [id number],C,C ontinues on Rosuvastatin. We aim for an LDL <70. Stacy Auguste MD [id number],C,T he patient is using CPAP on a regular basis. The patient has been benefiting from therapy and should continue use. Stacy Auguste MD [id number],C,On levothyrox ine. Stacy Auguste MD [id number],C,On metformin 500mg BID. Stacy Auguste MD [id number],C,B P elevated, dietary compliance stressed. Also asked her to increase lisinopril to 10mg daily, and monitor BP on a regular basis. Stacy Auguste MD [id number],C, W eight loss advised Stacy Auguste MD [id number],C, C ontinues on replacement therapy. Stacy Auguste MD [id number],C, C ontinues on Rosuvastatin. We aim for an LDL <70. Stacy Auguste MD [id number],C, C ontinues on Metformin. Stacy Auguste MD [id number],C, H er echo 08/24/2020 showed normal LV function. EF 60%. Nuclear stress test 08/24/2020 showed normal perfusion. The patient has been reassured. Weight reduction advised. Stacy Auguste MD [id number],C, B P today elevated at 150/83. Advised she monitor at home. Stacy Auguste MD [id number],C, A bdominal US 06/2020 showed nodular liver contour suggesting cirrhosis. Follows with [facility] at [facility] whose name she cannot recall. Will obtain bloodwork from PCP. Stacy Auguste MD [id number],C,T he patient is using CPAP on a regular basis. The patient has been benefiting from therapy and should continue use. Stacy Auguste MD [id number],C,C ontinues on Metformin. Stacy Auguste MD [id number],C,C ontinues on Rosuvastatin. We aim for an LDL <70. Stacy Auguste MD [id number],C,B P control is satisfactory. Stacy Auguste MD [id number],C,H er recent echo 08/24/2020 showed normal LV [...] and should continue use. Stacy Auguste MD Cardiology:On levothyroxine. Tai Auguste MD Cardiology:On [...] nodular liver contour suggesting cirrhosis. Follows with [facility] at [facility] whose name she cannot recall. Will obtain [...]
--- OUTSIDE RECORDS SUMMARY | 2024-03-21 13:23 | XMS_ITS | Patient Health Summary ---
Author Organization [facility] Address [address] [place] [address] Care Team Providers Care Property Damage Claims Adjustor Name Role Phone Soy Joyce MD Primary Care Provider Note from [facility],non-owned Affiliates and Associated Physician Practices is amultiple site organization consisting of ambulatory clinics and hospital sitesin [place], [place], [place] and [place]. This disclosure is being madepursuant to the Care Everywhere program and may not contain all information available regarding this patient. Last updated 17.[facility] Allergies No known active allergies Medications * [...] needed * Cholecalciferol (vitamin D3) 1.25 MG (64724 UT) capsule(Discontinued) Take 1 (one) capsule by [...] Comments Blood Pressure 133/72 03/04/2024 10:58 AM POLITICAL CONSULTANT Pulse 92 03/04/2024 10:58 AM POLITICAL CONSULTANT Temperature 37.2 C (99 F) 03/04/2024 10:58 AM POLITICAL CONSULTANT Respiratory Rate 18 02/13/2023 10:1 3 AM POLITICAL CONSULTANT Oxygen Saturation 95% 03/04/2024 10: 58 AM POLITICAL CONSULTANT Inhaled Oxygen Concentration - - Weight 100.1 kg (220 lb 9.6 oz) 025 10:58 AM POLITICAL CONSULTANT Height 165.1 cm (5' 5 ) 03/04/2024 10:5 8 AM POLITICAL CONSULTANT Body Mass Index 36.71 03/04/2024 10:58 AM POLITICAL CONSULTANT Procedures * PT-INR [facility](Performed 03/04/2024) Performed for [...] W DIFF (EXTERNAL RESULT ENTRY)(Performed 03/05/2022) * [place] LIVER ELASTOGRAPHY(Performed 11/20/2021) Performed for Elevated liver [...] 05/10/2021) Performed for Elevated liver enzymes * [id number] BLOOD PHENOTYPING PANEL(Performed 05/10/2021) Performed for Elevated [...] (EXTERNAL RESULT ENTRY)(Performed 02/20/2021) Results * PT-INR [facility] (03/04/2024 12:25 PM POLITICAL CONSULTANT) Only the most recent of2 resultswithin the time period is included. PT 13.6 12.1 - 14.8 Seconds 03/04/2024 12:59 PM POLITICAL CONSULTANT [facility] INR 1.1 See Comment 03/04/2024 12:59 PM POLITICAL CONSULTANT [facility] Comment:The suggested therap eutic range for standard coumadin (warfarin) therapy is an INR of 2.0-3.0. For high-risk patients (Mechanical Mitral Valve Prosthesis, etc.), the suggested prophylactic therapeutic range is an INR of 2.5-3.5. Blood BLOOD SPECIMEN / Unknown Lab Venipuncture / Unknown 03/04/2024 12:25 PM POLITICAL CONSULTANT 03/04/2024 12:34 PM POLITICAL CONSULTANT Anastasia Gandhi BLASTER HELPER-STRAND FORMING MACHINE OPERATOR LAB - COAGU LATION ORDERABLES Performing Organization Address [facility] Co de Phone Number [address] [address], [facility] [phone] * ALPHA FETOPROTEIN BLOOD TUMOR MARKER (03/04/2024 12:25 PM POLITICAL CONSULTANT) Only the most recent of2 resultswithin the time period is included. [facility] Alpha-Fetoprote in Tumor Marker 6.7 <=8.3 ng/mL 03/04/2024 1:22 PM [facility] Comment: AFP values will vary depending on testing procedure used. Results are not comparable across different methods. AFP values obtained by [facility] using an [employer] Alinity Immunoassay. Blood BLOOD SPECIMEN / Unknown Lab Venipuncture / Unknown 03/04/2024 12:25 PM POLITICAL CONSULTANT 03/04/2024 12:32 PM POLITICAL CONSULTANT Anastasia Gandhi BLASTER HELPER-STRAND FORMING MACHINE OPERATOR LAB - CHEMI STRY ORDERABLES Performing Organization Address [facility] Co de Phone Number [address] [address], [facility] [phone] * (ABNORMAL) CBC WITH DIFFERENTIAL (03/04/2024 12:25 PM POLITICAL CONSULTANT) Only the most recent of2 resultswithin the time period is included. [facility] WBC 5.5 4.0 - 10.7 x10E9/L 03/04/2024 12:39 PM [facility] RBC Count 4.76 3.90 - 5.20 x10E12/L 03/04/2024 12:39 PM [facility] Hemoglobin 14.6 11.9 - 15.8 g/dL 03/04/2024 12:39 PM [facility] Hematocrit 45.8 34.8 - 46.1 % 03/04/2024 12:39 PM [facility] MCV 96.2 80.0 - 98.0 fL 03/04/2024 12:39 PM [facility] MCH 30.7 26.7 - 33.6 pg 03/04/2024 12:39 PM [facility] MCHC 31.9 31.7 - 36.3 g/dL 03/04/2024 12:39 PM [facility] RDW-CV 13.7 11.3 - 14.8 % 03/04/2024 12:39 PM [facility] Platelet Count 149(L) 150 - 420 x10E9/L 03/04/2024 12:39 PM [facility] MPV 9.4 7.8 - 11.4 fL 03/04/2024 12:39 PM [facility] Neutrophil % 60.8 41.0 - 74.0 % 03/04/2024 12:39 PM [facility] Lymphocyte % 26.5 17.0 - 47.0 % 03/04/2024 12:39 PM [facility] Monocyte % 9.6 3.0 - 11.0 % 03/04/2024 12:39 PM [facility] Eosinophil % 2.2 0.0 - 7.0 % 03/04/2024 12:39 PM [facility] Basophil % 0.7 0.0 - 1.6 % 03/04/2024 12:39 PM [facility] Immature Granulocytes % 0.2 0.0 - 1.0 % 03/04/2024 12:39 PM [facility] Neutrophil Absolute 3.37 1.60 - 7.50 x10E9/L 03/04/2024 12:39 PM [facility] Lymphocyte Absolute 1.47 1.00 - 4.40 x10E9/L 03/04/2024 12:39 PM [facility] Monocyte Absolute 0.53 0.15 - 1.00 x10E9/L 03/04/2024 12:39 PM [facility] Eosinophil Absolute 0.12 0.00 - 0.60 x10E9/L 03/04/2024 12:39 PM [facility] Basophil Absolute 0.04 0.00 - 0.13 x10E9/L 03/04/2024 12:39 PM [facility] Blood BLOOD SPECIMEN / Unknown Lab Venipuncture / Unknown 03/04/2024 12:25 PM POLITICAL CONSULTANT 03/04/2024 12:32 PM POLITICAL CONSULTANT Anastasia Jannie Gandhi BLASTER HELPER-STRAND FORMING MACHINE OPERATOR LAB - HEMAT OLOGY ORDERABLES [facility] [address] [place] [address], [facility] [phone] * (ABNORMAL) COMPREHENSIVE METABOLIC PANEL (03/04/2024 12:25 PM POLITICAL CONSULTANT) Only the most recent of2 resultswithin the time period is included. BUN 16 7 - 26 mg/dL 03/04/2024 12:59 PM [facility] Creatinine 0.92 0.56 - 0.96 mg/dL 03/04/2024 12:59 PM [facility] Sodium 141 136 - 145 mmol/L 03/04/2024 12:59 PM [facility] Potassium 4.6(H) 3.5 - 4.5 mmol/L 03/04/2024 12:59 PM [facility] Chloride 106 98 - 107 mmol/L 03/04/2024 12:59 PM [facility] CO2 26 22 - 29 mmol/L 03/04/2024 12:59 PM [facility] Glucose 110(H) 70 - 99 mg/dL 03/04/2024 12:59 PM [facility] Calcium 9.7 8.4 - 10.2 mg/dL 03/04/2024 12:59 PM [facility] Protein Total 7.5 6.0 - 8.3 g/dL 03/04/2024 12:59 PM [facility] Albumin 4.0 3.4 - 5.0 g/dL 03/04/2024 12:59 PM [facility] Bilirubin Total 0.6 0.2 - 1.2 mg/dL 03/04/2024 12:59 PM [facility] Alkaline Phosphatase 51 40 - 150 U/L 03/04/2024 12:59 PM [facility] ALT 26 5 - 55 U/L 03/04/2024 12:59 PM [facility] AST 30 5 - 34 U/L 03/04/2024 12:59 PM [facility] Anion Gap 9 6 - 16 03/04/2024 12:59 PM [facility] BUN/Creatinine Ratio 17 7 - 23 03/04/2024 12:59 PM [facility] Osmolality Calculated 294 275 - 295 mOsm/kg 03/04/2024 12:59 PM [facility] Albumin/Globulin Ratio 1.1 1.1 - 2.3 03/04/2024 12:59 PM [facility] eGFR by CKD-EPI 63(L) >=90 mL/min/1.7 3 m2 03/04/2024 12:59 PM [facility] Blood BLOOD SPECIMEN / Unknown Lab Venipuncture / Unknown 03/04/2024 12:25 PM POLITICAL CONSULTANT 03/04/2024 12:32 PM POLITICAL CONSULTANT Anastasia N Gandhi BLASTER HELPER-STRAND FORMING MACHINE OPERATOR LAB - CHEMI STRY ORDERABLES [facility] [address] [place] [address], [facility] [phone] * US ABDOMEN LIMITED (03/04/2024 10:33 AM POLITICAL CONSULTANT) Only the most recent of4 resultswithin the time period is included. Anatomical Region Laterality Modality Abdomen Ultrasound 03/04/2024 10:4 5 AM POLITICAL CONSULTANT Impressions 03/04/2024 11:22 AM POLITICAL CONSULTANT Impression: 1.Liver Visualization Score A: No or minimal limitations. 2.US-2 Subthreshold. Repeat surveillance US in 3-6 months. 3.Redemonstrated hepatic cirrhosis with sequela of portal hypertension. Report drafted by Jeff Leggett MD (resident). I, Lila Pool MD have personally reviewed and interpreted this examination/study. > Interpreting Provider: Lila Pool MD on 03/04/2024 11:22 AM Narrative 03/04/2024 11:22 AM POLITICAL CONSULTANT PROCEDURE: US ABDOMEN LIMITED DATE/TIME OF EXAM: [...] MD on 03/04/2024 11:22 AM Anastasia Gandhi BLASTER HELPER-STRAND FORMING MACHINE OPERATOR US ORDERABL ES * (ABNORMAL) CBC W [...] CDT Historical Provider LAB - CHEMISTRY O DENAE Performing Organization Address City/[facility] de Phone Number OTHER LAB * (ABNORMAL) [...] CDT Historical Provider LAB - CHEMISTRY O DENAE Performing Organization Address [facility] de Phone Number OTHER LAB * TSH (EXTERNAL RESULT ENTRY) (11/27/2022 9:45 AM CDT) Only the most recent of3 resultswithin the time period is included. TSH (EXTERNAL RESULT) 0.060 uIU/mL OTHER LAB Blood BLOOD SPECIMEN / Unknown 11/27/2022 9:45 AM CDT Historical Provider LAB - CHEMISTRY O DENAE Performing Organization Address City/[facility] Co de Phone Number OTHER LAB * T4 FREE (EXTERNAL RESULT ENTRY) (11/27/2022 9:45 AM CDT) Only the most recent of3 resultswithin the time period is included. T4 Free (EXTERNAL RESULT) 3.00 ng/dl OTHER LAB Blood BLOOD SPECIMEN / Unknown 11/27/2022 9:45 AM CDT Historical Provider LAB - CHEMISTRY O RDERAMICHAEL Performing Organization Address [facility] de Phone Number OTHER LAB * MICROALB/CREAT RATIO URINE (EXTERNAL RESULT ENTRY) (11/27/2022 9:45 AM CDT) Only the most recent of2 resultswithin the time period is included. Microalb/Creat Ratio (EXTERNAL RESULT) 84.4 mg/g OTHER LAB Urine URINE / Unknown 11/27/2022 9 :45 AM CDT Historical Provider LAB - URINE CHEMI STRY ORDERABLES Performing Organization Address [facility] de Phone Number OTHER LAB * HEMOGLOBIN A1C (EXTERNAL RESULT ENTRY) (11/27/2022 9:45 AM CDT) Only the most recent of3 resultswithin the time period is included. Hemoglobin A1c (EXTERNAL RESULT) 5.6 % OTHER LAB Blood BLOOD SPECIMEN / Unknown 11/27/2022 9:45 AM CDT Historical Provider LAB - CHEMISTRY O RDERAMICHAEL Performing Organization Address [facility] de Phone Number OTHER LAB * (ABNORMAL) PT INR (EXTERNAL RESULT ENTRY) (03/13/2022 8:46 AM POLITICAL CONSULTANT) Only the most recent of2 resultswithin the time period is included. PT (EXTERNAL) 12.0(A) sec OTHER LAB INR (EXTERNAL RESULT) 1.2 OTHER LAB Blood BLOOD SPECIMEN / Unknown 03/13/2022 8:46 AM POLITICAL CONSULTANT Historical Provider LAB - CHEMISTRY O RDSADI Performing Organization Address [facility] de Phone Number OTHER LAB * AFP (EXTERNAL RESULT ENTRY) (03/13/2022 8:46 AM POLITICAL CONSULTANT) Alpha-Fetoprote in (EXTERNAL RESULT) 5.1 OTHER LAB Blood BLOOD SPECIMEN / Unknown 03/13/2022 8:46 AM POLITICAL CONSULTANT Historical Provider LAB - CHEMISTRY O RDSADI Performing Organization Address [facility] de Phone Number OTHER LAB * VITAMIN D HYDROXY (EXTERNAL RESULT) (03/05/2022 9:52 AM POLITICAL CONSULTANT) Vitamin D Hydroxy (External Result) 69.6 OTHER LAB Blood 03/05/2022 9:52 AM POLITICAL CONSULTANT Historical Provider LAB - CHEMISTRY O DENAE Performing Organization Address [facility] de Phone Number OTHER LAB * PROC FIBROSCAN (11/20/2021 2:03 PM CDT) Narrative Nigel Sevilla MD - 11/20/2021 2:03 PM CDT Nigel Sevilla MD 11/20/2021 10:09 PM Diagnosis: elevated liver enzymes RN verified patient not , no implanted devices and NPO for prior 3 hours. Vital signs taken, procedure explained and consent signed. Date of Exam: 11/20/2021 Liver Stiffness: (LSM, kPa) median: 27.0 IQR (interquartile range): 8.0 IQR/Median% (ideally < 30%): 30% CAP (controlled attenuation parameter): 293 Technical Difficulty: Many invalid measurements Ordering Provider: [...] based on the following published data: Kortney HANKINS, Dalia M, Fabiola M, et al. Accuracy of FibroScan controlled attenuation parameter and liver stiffness measurement in assessing steatosis and fibrosis in patients with nonalcoholic fatty liver disease. Gastroenterology 2019;156:7183-4899. [place] MS, Ирина R, [place] ML, [...] improved by also calculating the FIB4 score (Davyduke et al. [employer] 2019;3:5790-2668) or NAFLD Fibrosis score (Richmond et al. Clinical Gastroenterology and Hepatology 2019;17:4560-9448. from routine clinical data. 3. Liver stiffness [...] change as additional supporting data becomes available. [email or web address] Anastasia Gandhi BLASTER HELPER-STRAND FORMING MACHINE OPERATOR PROCEDURE/M INOR SURGICAL ORDERABLES * SMOOTH MUSCLE ANTIBODY W REFLEX TITER (05/10/2021 3:05 PM CDT) F-Actin Antibody IgG 19 0 - 19 Units 05/12/2021 7:42 AM CDT [employer] ([facility]) Comment: If F-Actin (Smooth Muscle) Antibody, IgG is negative, the Smooth Muscle Antibody titer by IFA is not performed. REFERENCE INTERVAL: F-Actin (Smooth Muscle) Antibody, IgG by FORTINO 19 Units or less ....... Negative 20 - 30 Units .......... Weak Positive-Suggest repeat testing in two to three weeks with fresh specimen. 31 Units or greater..... Positive-Suggestive of autoimmune hepatitis type 1 or chronic active hepatitis. F-actin IgG antibodies [...] suspicion for AIH is strong. Performed By: [employer] [address] [place] [address] Strip Stamp Straightener: Inge Mims MD Blood BLOOD SPECIMEN / Unknown Lab Venipuncture / Unknown 05/10/2021 3:05 PM CDT 05/10/2021 4:02 PM CDT Anastasia Gandhi BLASTER HELPER-STRAND FORMING MACHINE OPERATOR LAB - SEROL OGY ORDERABLES [employer] ([facility]) [address] [place] [address], [facility] * MITOCHONDRIAL ANTIBODY SCREEN (05/10/2021 3:05 PM CDT) Mitochondrial M2 Antibody 6.7 0.0 - 24.9 Units 05/12/2021 7:42 AM CDT [facility] [employer] ([facility]) Comment: REFERENCE INTERVAL: Mitochondrial (M2) Antibody, IgG 20.0 Units or less ......... Negative 20.1 - 24.9 Units........... Equivocal 25.0 Units or greater....... Positive Anti-mitochondrial antibodies (AMA) [...] does not rule out PBC. Performed By: [employer] [address] [place] [address] Strip Stamp Straightener: Inge Mims MD Blood BLOOD SPECIMEN / Unknown Lab Venipuncture / Unknown 05/10/2021 3:05 PM CDT 05/10/2021 4:02 PM CDT Anastasia Gandhi BLASTER HELPER-STRAND FORMING MACHINE OPERATOR LAB - CHEMI STRY ORDERABLES [facility] [employer] [facility]) [address] [place] [address], [facility] * [id number] BLOOD PHENOTYPING PANEL (05/10/2021 3:05 PM CDT) Pathologist [facility] Ndpmu-4-Xnuekbswfc n Phenotype M1M1 05/14/2021 4:52 PM CDT [facility] ([facility]) Comment: The patient appears to have a normal phenotype. All M alleles (including subtypes M1, M2, and M3) produce normal serum concentrations of ztmqk-3-dnjjqezy inhibitor and are not associated with clinical disease. Caution in interpretation is advised if the patient has been transfused within the previous 21 days. Performed By: [employer] [address] [place] [address] Strip Stamp Straightener: Inge Mims MD Plkmi-6-Nueuprdqis n 163 90 - 200 mg/dL 05/14/2021 4:52 PM CDT [employer] ([facility]) Comment:To convert to umol/L , multiply mg/dL by 0.185 Blood BLOOD SPECIMEN / Unknown Lab Venipuncture / Unknown 05/10/2021 3:05 PM CDT 05/10/2021 4:02 PM CDT Anastasia Gandhi [facility] LAB - CHEMI STRY ORDERABLES [facility]) [address] [place] [address], [facility] * KAIT BLOOD SCREEN W/REFLEX TITER (05/10/2021 3:05 PM CDT) KAIT IgG None Detected None Detected 05/12/2021 9:16 PM CDT [employer] ([facility]) Comment: If suspicion of connective tissue disease is strong and KAIT EIA is negative, consider testing for KAIT by IFA ([id number]). INTERPRETIVE INFORMATION: Anti-Nuclear Antibodies (KAIT), IgG by FORTINO Antinuclear Antibodies (KAIT), IgG by FORTINO: KAIT specimens are screened using enzyme-linked immunosorbent assay (FORTINO) methodology. All FORTINO results reported as Detected are further tested by indirect fluorescent assay (IFA) using HEp-2 substrate with an IgG-specific conjugate. The KAIT FORTINO screen is designed to detect antibodies against dsDNA, histones, SS-A (Ro), SS-B (La), [place], [place]/AUDITING CODER, Scl-70, Jennifer-1, centromeric proteins, other antigens extracted from the HEp-2 cell nucleus. KAIT FORTINO assays have been reported to have lower sensitivities than KAIT IFA for systemic autoimmune rheumatic diseases (SARD). Negative results do not necessarily rule out SARD. Performed By: [employer] [address] [place] [address] Strip Stamp Straightener: Inge Mims MD Blood BLOOD SPECIMEN / Unknown Lab Venipuncture / Unknown 05/10/2021 3:05 PM CDT 05/10/2021 4:02 PM CDT Anastasia WYATT LAB - CHEMI STRY ORDERABLES [facility] [employer] ([facility]) [address] [place] [id number], [facility] * CERULOPLASMIN (05/10/2021 3:05 PM CDT) Ceruloplasmin 32 20 - 60 mg/dL 05/10/2021 4:25 PM CDT [facility] Blood BLOOD SPECIMEN / Unknown Lab Venipuncture / Unknown 05/10/2021 3:05 PM CDT 05/10/2021 4:02 PM CDT Anastasia Gandhi APRN-STRAND FORMING MACHINE OPERATOR LAB - CHEMI STRY ORDERABLES Performing Organization Address City/[facility]/ZIP Co de Phone Number [address] [address], [place] [phone] * HEPATITIS B CORE ANTIBODY (05/10/2021 3:05 PM CDT) HBc Antibody Total Non-reacti ve Non-reacti ve 05/10/2021 4:44 PM CDT [facility] Blood BLOOD SPECIMEN / Unknown Lab Venipuncture / Unknown 05/10/2021 3:05 PM CDT 05/10/2021 4:02 PM CDT Anastasia Gandhi APRN-STRAND FORMING MACHINE OPERATOR LAB - CHEMI STRY ORDERABLES [address] [address], [place] [phone] * IGG BLOOD (05/10/2021 3:05 PM CDT) IgG 998 767-1,590 mg/dL 05/10/2021 4:27 PM CDT [facility] Blood BLOOD SPECIMEN / Unknown Lab Venipuncture / Unknown 05/10/2021 3:05 PM CDT 05/10/2021 4:02 PM CDT Anastasia Gandhi BLASTER HELPER-STRAND FORMING MACHINE OPERATOR LAB - CHEMI STRY ORDERABLES [facility] [address] [place] [address], [facility] [phone] * FERRITIN (EXTERNAL RESULT ENTRY) (02/20/2021) Ferritin (EXTERNAL RESULT) 14 Blood BLOOD SPECIMEN / Unknown 02/20/2021 Soy Joyce MD LAB - CHEMISTRY ORDERABLES * IRON/SATURATION (EXTERNAL RESULT ENTRY) (02/20/2021) Iron (EXTERNAL RESULT) 120 mcg/dl Transferrin (EXTERNAL RESULT) Transferrin Saturation (EXTERNAL RESULT) 29 % Blood BLOOD SPECIMEN / Unknown 02/20/2021 Anastasia Gandhi [facility] LAB - CHEMI STRY ORDERABLES Care Teams Property Damage Claims Adjustor Relationship Specialty Start Date End Date Soy Joyce MD [address] [phone] PCP - General 02/04/21
--- OUTSIDE RECORDS SUMMARY | 2024-03-21 13:23 | XMS_ITS | Data Portability ---
Author Organization [place] [employer], Main Office Address [address] [place] [address] Care Team Providers Care Java J2Ee Architect Name Role Phone ADITYA JOYCE Primary Care Provider ADITYA JOYCE Referring Provider FRAN WARNER Java Web Application Developer [facility] Coordinator ANASTASIA GANDHI Admissions Officer Assessment Encounter Date Assessment Date Assessment LastModified by Organization Details LastModified Time 06/12/2023 06/12/2023 Assessment: Very severe OSAHS, AHI = 73 Plan: The following were reviewed and explained to the patient: [facility] split sleep study 12/28/17 AHI = 73, Esthela varma Eson nasal mask @ 10 cmH2O PAP compliance downloaded and interpreted x 20 minutes. Data reviewed and explained to the patient. Average apnea/hypopnea index (AHI) is 5.8. Patient used PAP > 4 hours 81% of the time. PAP is set at 10 cmH2O. PAP will be reset at 11 cmH2O. Keep ramp off. Keep EPR +1. Oxygen supplementation: none Patient is benefiting from PAP therapy. Encouraged patient to maintain PAP use more than 70% of the time. Statement of PAP use and benefits will be sent to the home care store. Educated the patient on problems and solutions associated with positive airway pressure (PAP) use. Difficulty tolerating pressure, mask leaks, intolerance of interface, nasal congestion, claustrophobic response, dry mouth, and unintentional mask removal during sleep were covered. Dry mouth is a normal occurrence for people who just start out on PAP therapy because they are not used to air blowing in to the throat to hold open. Dry mouth is exacerbated for people who wear nasal PAP mask and whose jaw drops open during sleep. Not only does this create a much less efficient therapy because of leakage, it also causes dry mouth. There are a couple solutions to help prevent this type of problem. A simple solution would be to wear a chinstrap which essentially holds the jaw in place. A second solution would be a switch to a full face mask which covers both the nose and mouth. Although this is another easy solution, using a full face mask for some could seem claustrophobic or confining. There is no silver bullet solution as no single mask is right for everybody. Sometimes it takes a bit of experimentation to find a PAP mask which best meets the patient's needs as well as fits comfortably. Another tactic is to use a humidifier on your PAP machine. Most new PAP machines have integrated humidifiers. Humidification is mckeon when dealing with symptoms of dry mouth because the humidifier can supply both warm and room temperate air. Even a small amount of humidity in the airflow will help nasal passages to stay hydrated. If a person is using both a full face mask and a PAP machine with a heated humidifier and is still experiencing dry mouth, an ill-fitted PAP mask might be causing the problem. Leakage can be caused by a mask that is to large or small, the wrong style mask, the cushion is degraded or simply because the mask's straps aren't adjusted correctly. If leakage occurs, dry air from the room can leak in while humidification escapes. The result is reduced humidification within the circuit and resulting in dry throat and mouth. Finally, beyond factors involving the PAP machine and mask, dry mouth can also be caused or worsened by dehydration. The general recommendation to during eight 8 oz. glasses of water a day might be too little for many people. When people drink large amounts of coffee or other caffeine beverages, or sweat a lot during the day, making sure to rehydrate is an important part of PAP therapy. Provided the patient with a list of local home care stores where positive airway pressure (PAP) units, accoutrement, and services are available. Home care store selection is based on patient's insurance carrier. Patient will setup an appointment with [facility] for supplies and pressure adjustments. A major predictor of success with use of PAP is follow-up with both the respiratory supplier and the treating physician. The respiratory supplier optimally will follow-up within two weeks after starting use while the treating physician optimally will follow-up within 90 days after starting therapy to assess adherence and effectiveness of treatment. The download results can show the treating physician information about adherence to treatment, residual AHI while on treatment and presence of large mask leakage. This information is especially helpful if the patient has residual sleepiness despite treatment. General information on sleep disordered breathing, evaluation of sleep disordered breathing, treatment with PAP therapy, and living with PAP therapy were covered. We discussed with the patient the impact of weight on: Sleep disordered breathing Hyperlipidemia Hypertension DM JEAN PIERRE Cirrhosis CKD DVT Cervical spondylosis Hip OA We discussed with the patient the benefit of PAP therapy on: Sleep disordered breathing Rhinitis Hypertension DM JEAN PIERRE Educated the patient on sleep hygiene measures. Relaxing rituals to rest easy, understanding foods with positive and negative impact on sleep, creating a peaceful sleep environment, timing of exercise, using herbal sleep aids, and practicing sleep-friendly meditation were covered. To determine how much sleep is needed, the patient will assess where she falls on the spectrum, examine what lifestyle factors such as work schedules and stress are affecting the quality and quantity of sleep. In general, adults need 7-9 hours of sleep. Educated the patient regarding foods that promote sleep. These include but are not limited to cherries, bananas, toast, oatmeal, and warm milk. Educated the patient regarding foods and drinks to avoid before bedtime. These include but are not limited to aged cheese, chocolate, spicy foods, tomato-based sauces, soy, ginseng tea and processed meat. Advocated influenza vaccination annually and pneumonia vaccination STEPHENIE. Advocated weight loss through diet and exercise. Patient's ideal body weight according to height and gender is up to 135 lbs. Encouraged patient to adjust caloric intake to maintain/achieve ideal body weight, emphasizing on fruits, vegetables, whole grains, and fat-free or low-fat products. These include lean meats, poultry, fish, beans, eggs, and nuts and foods that are low in saturated fats, trans-fats, cholesterol, salt (sodium), and glycemic index. Stressed the importance of regular exercise up to the patient's capacity limits. In this case, we recommend regular (4 x a week or more) walking or other light activity. Patient to monitor BP daily and bring records to PCP for further management. Follow-up: 6 months, December 2023 [facility] Not available 06/12/2023 12:58:33 06/25/2023 06/25/2023 07/26/2022: TSH 0.055L, FT4 2.10 11/27/2022: A1C 5.6 TSH 0.060L, FT4 3.00H Urine micro alb 84.4 Gluc 111, AST 39 PLT 142 03/11/2023: A1C 5.6 TSH 0.016L, FT4 2.72H Urine micro alb 29.5 Gluc 118, ALT/AST 38/42 Not available 06/25/2023 09:36:12 08/18/2023 08/18/2023 07/26/2022: TSH 0.055L, FT4 2.10 11/27/2022: A1C 5.6 TSH 0.060L, FT4 3.00H Urine micro alb 84.4 Gluc 111, AST 39 PLT 142 03/11/2023: A1C 5.6 TSH 0.016L, FT4 2.72H Urine micro alb 29.5 Gluc 118, ALT/AST 38/42 04/23/2023: Dr Heart Gluc 125, AST/ALT 36 [email or web address] Not available 08/18/2023 10:52:32 11/24/2023 11/24/2023 07/26/2022: TSH 0.055L, FT4 2.10 11/27/2022: A1C 5.6 TSH 0.060L, FT4 3.00H Urine micro alb 84.4 Gluc 111, AST 39 PLT 142 03/11/2023: A1C 5.6 TSH 0.016L, FT4 2.72H Urine micro alb 29.5 Gluc 118, ALT/AST 38/42 04/23/2023: Dr Heart Gluc 125, AST/ALT 42/36 11/21/2023: MCV 101.1, PLT 98 TSH 7.700H Gluc 107, BUN 25, ALT/AST 50/55 45 minutes spent with the patient, labs reviewed, chart updated, discussed her use of ozempic and referral placed to see Dr Una angeles Not available 11/24/2023 15:27:51 12/29/2023 12/29/2023 07/26/2022: TSH 0.055L, FT4 2.10 11/27/2022: A1C 5.6 TSH 0.060L, FT4 3.00H Urine micro alb 84.4 Gluc 111, AST 39 PLT 142 03/11/2023: A1C 5.6 TSH 0.016L, FT4 2.72H Urine micro alb 29.5 Gluc 118, ALT/AST 38/42 04/23/2023: Dr Heart Gluc 125, AST/ALT 42/36 11/21/2023: MCV 101.1, PLT 98 TSH 7.700H Gluc 107, BUN 25, ALT/AST 50/55 12/10/2023: Dr Heart 45 minutes spent with the patient, labs reviewed, chart updated, discussed her referrals [email or web address] Not available 12/29/2023 19:12:51 Plan of Treatment Reminders Order Date Submit Date Provider Last Modified By Organization Details Last Modified Time Details Appointments Any 2024 01:30P M Aditya rueda MD Not available Not available Not available Lab lipid panel, serum 2023 024 ROMEO Not available 08/20/2023 10:02:41 CMP, serum or plasma 2023 024 ROMEO Not available 08/20/2023 10:02:41 CBC w/ auto diff 2023 024 ROMEO Not available 08/20/2023 10:02:41 TSH + free T4, serum 2023 024 [email or web address] Not available 12/22/2023 14:36:51 urinalysi s, dipstick 2023 024 teo [email or web address] [facility] [address] , [place], [address], 06/26/2023 08:59:57 microalbu min, urine 2023 024 ROMEO Not available 08/20/2023 10:02:41 glycohemo globin, total, blood 2023 024 [email or web address] Not available 12/22/2023 14:36:50 lipid panel, serum 2023 024 ROMEO Not available 08/19/2023 13:17:40 CMP, serum or plasma 2023 024 ROMEO Not available 08/19/2023 13:17:47 CBC w/ auto diff 2023 024 ROMEO Not available 08/19/2023 13:10:19 TSH + free T4, serum 2023 024 ROMEO Not available 08/20/2023 10:02:42 vitamin D3, 25-hydrox y, serum 2023 024 [email or web address] [email or web address] Not available 09/02/2023 09:57:58 microalbu min, urine 2023 024 ROMEO Not available 08/19/2023 15:30:50 glycohemo globin, total, blood 2023 024 ROMEO Not available 08/19/2023 14:57:00 lipid panel, serum 2023 024 ATHENAFAX Not available 11/24/2023 15:38:36 CMP, serum or plasma 2023 024 ATHENAFAX Not available 11/24/2023 15:38:36 CBC w/ auto diff 2023 024 ROMEO Not available 12/10/2023 13:17:09 TSH + free T4, serum 2023 024 ATHENAFAX Not available 11/24/2023 15:38:36 vitamin D3, 25-hydrox y, serum 2023 024 [email or web address] Not available 12/01/2023 17:15:44 microalbu min, urine 2023 024 ATHENAFAX Not available 11/24/2023 15:38:36 glycohemo globin, total, blood 2023 024 ATHENAFAX Not available 11/24/2023 15:38:36 lipid panel, serum 2023 024 [email or web address] Not available 12/29/2023 12:29:21 CMP, serum or plasma 2023 024 [email or web address] Not available 12/29/2023 12:29:21 CBC w/ auto diff 2023 024 [email or web address] Not available 12/29/2023 12:29:22 TSH + free T4, serum 2023 024 [email or web address] Not available 12/29/2023 12:29:22 vitamin D3, 25-hydrox y, serum 2023 024 [email or web address] Not available 12/29/2023 12:29:22 microalbu min, urine 2023 024 Not available 12/29/2023 12:29:20 glycohemo globin, total, blood 2023 024 [email or web address] Not available 12/29/2023 12:29:20 Referral orthopedi c surgeon referral 2023 024 [email or web address] Kobe MONCADA, [address], [place], [address], 12/22/2023 14:37:52 pulmonolo gist referral 2023 024 [email or web address] Fran Warner MD, [address] [place], [address], 07/23/2023 08:17:13 hematolog ist referral 2023 024 [email or web address] Pablo Heart, [address], [place], [address], 07/23/2023 08:17:14 gastroent erologist referral 2023 024 [email or web address] Sharonda Collazo MD, [address], [place], [address], 12/22/2023 14:37:51 podiatris t referral 2023 024 Blaine Faustin DPM, [address] [facility], [place], [address], 12/22/2023 14:37:51 gastroent erologist referral 2023 024 [email or web address] Anastasia Gandhi APRN, [address] [facility] [address], [place], [address], 02/19/2024 08:33:14 orthopedi c surgeon referral 2023 024 [email or web address] Kobe Pelaez PA, [address], [place], [address], 02/19/2024 08:33:13 pulmonolo gist referral 2023 024 [email or web address] Fran Warner MD, [address] [facility], [place], [address], 09/23/2023 17:33:30 hematolog ist referral 2023 024 [email or web address] [facility], [address], [place], [address], 09/23/2023 17:33:59 gastroent erologist referral 2023 024 [email or web address] Sharonda Collazo MD, [address] [facility], [place], [address], 02/23/2024 08:34:01 podiatris t referral 2023 024 [email or web address] Inocencio Angeles Jr DPM, [address], [address], [place], [address], 02/23/2024 08:34:00 gastroent erologist referral 2023 024 ATHMINERVA Gandhi APRN, [address] [facility], [place], [address], 11/24/2023 15:26:57 nephrolog ist referral 2023 DYANA Banks MD (Nephrology, [address], [place], [address], 11/24/2023 15:27:00 orthopedi c surgeon referral 2023 ROMEO Pelaez PA, [address], [place], [address], 11/24/2023 16:14:57 pulmonolo gist referral 2023 024 [email or web address] Fran Warner MD, [address] [place], [address], 12/22/2023 14:38:12 hematolog ist referral 2023 [email or web address] [facility], [address], [place], [address], 12/22/2023 14:38:21 gastroent erologist referral 2023 DYANA Collazo MD, [address] [facility], [place], [address], 11/24/2023 15:27:43 podiatris t referral 2023 DYANA Angeles Jr DPM, [address], [address], [place], [address], 11/24/2023 15:28:34 pulmonolo gist referral 2023 024 [email or web address] Fran Warner MD, [address] [facility], [place], [address], 12/31/2023 14:37:10 nephrolog ist referral 2023 024 [email or web address] Gael Banks MD (Nephrology, [address], [place], [address], 12/31/2023 14:40:00 hematolog ist referral 2023 024 [email or web address] Pablo Nobled, [address], [place], [address], 12/31/2023 14:38:19 gastroent erologist referral 2023 024 Anastasiaholly Gandhi RUBBER COMPOUNDER FORMULATOR, [address] [facility], [place], [address], 12/31/2023 14:38:20 orthopedi c surgeon referral 2023 024 [email or web address] Kobe Pelaez PA, [address], [place], [address], 12/31/2023 14:40:00 gastroent erologist referral 2023 024 [email or web address] Sharonda Collazo MD, [address] [facility], [place], [address], 12/31/2023 14:39:59 podiatris t referral 2023 024 [email or web address] Inocencio Angeles Jr DPM, [address], [address], [place], [address], 12/31/2023 14:39:58 Procedures None recorded. Surgeries None recorded. Imaging DEXA, axial skeleton 2023 024 [email or web address] Not available 12/10/2023 12:00:50 DEXA, axial skeleton 2023 024 [email or web address] Not available 12/30/2023 16:59:39 Medication Orders cyclobenz aprine 10 mg tablet [email or web address] [id number], [address], [place], [place], [id number], 12/29/2023 11:05:50 Singulair 10 mg tablet 2023 [facility][id number], [address], [place], [place], [id number], 11/24/2023 15:25:05 Ozempic 1 mg/dose (4 mg/3 mL) subcutane ous pen injector 2023 [facility] #[id number], [address], [place], [place], [id number], 11/24/2023 15:25:03 venlafaxi ne ER 75 mg capsule,e xtended release 24 hr 2023 [facility] #[id number], [address], [place], [place], [id number], 12/29/2023 12:15:54 Patient TargetsNo targets recorded. Patient Instructions Encounter Date Encounter Id Patient Instructions Last Modified By Organization Details Last Modified Time 08/18/2023 [id number] dementia rating scale-2* [email or web address] Not available 08/18/2023 11:58:33 alcohol misuse* [email or web address] Not available 08/18/2023 11:58:49 depression screening* [email or web address] Not available 08/18/2023 11:59:07 Timed Up and Go test (TUG)* [email or web address] Not available 08/18/2023 11:59:25 multi-dimensiona l health assessment questionnaire* [email or web address] Not available 08/18/2023 11:58:12 Personalized [facility] lt Plan and Screening Recommendations Advance Directives - Do you have one? Yes Advance Directives - Do we have your advance directive on file in your health record? No, please bring in a copy at your earliest convenience Primary Prevention/Interven tion (prevents or decreases the chance of common diseases from occurring) Smoking Risk: Non Smoker Alcohol Misuse Screening: Negative Weight: Appropriate Overwei ght continue your current weight loss efforts try to lose 5% of your body weight try to lose 10% of your body weight Physical activity: Need more exercise/physical activity minimum of 10-20 minutes of activity that causes mild breathlessness/day Nutrition: Good Average Refer to attached handout Heart-Healthy Diet: After Your Visit Refer to attached handout DASH Diet: After Your Visit Fall Risk (screened today): Low Intermediate Refer to attached handout Preventing Falls: After your Visit Vaccines Pneumococcal: Ordered Recommended today Recommended today, but you have declined No further needed Influenza: Your next one in the fall of this year Chronic Disease Risks Stroke: Low Risk Intermediate Risk Heart Attack: Low risk Intermediate Risk Clogging of the Arteries: Low risk Intermediate Risk Diabetes: High Risk Active diagnosis, Continue current treatment plan Secondary Prevention/Interven tion (detects treatable diseases before they may cause symptoms, disability, or ) Breast Cancer Screening with mammogram: Cervical/Uterine/Ov simeon Cancer Screening: No screening necessary Osteoporosis Screening: Date Screening Last Performed:04/22/22 Colon Cancer Screening: Colonoscopy Date Screening Last Performed: 08/05/23 Eye Disease Screening: Ordered Recommended today Dementia Risk: Low I have no recommendations Depression Screening: Negative Active diagnosis, Continue current treatment plan [email or web address] Not available 08/18/2023 12:02:44 Reason for Referral Geopolitics Teacher Referral for Type 2 diabetes mellitus without complication Referring Physician: Aditya Joyce [facility], Encounter Date: 06/25/2023 Java Web Application Developer Referral for O bstructive sleep apnea syndrome Referring Physician: Aditya [facility], Encounter Date: 06/25/2023 Referring Physician: Aditya [facility], Encounter Date: 06/25/2023 Admissions Officer Referral for Screening for malignant neoplasm of colon Referring Physician: Aditya Joyce [facility], Encounter Date: 06/25/2023 Orthopedic Surgeon Referral for Osteoarthritis of bilateral hip joints Referring Physician: Kyaw Mccann Medicine, Encounter Date: 06/25/2023 Geopolitics Teacher Referral for Type 2 diabetes mellitus without complication Referring Physician: Kyaw Mccann Medicine, Encounter Date: 08/18/2023 Java Web Application Developer Referral for O bstructive sleep apnea syndrome Referring Physician: Kyaw Mccann, Encounter Date: 08/18/2023 Referring Physician: Kyaw Mccann Medicine, Encounter Date: 08/18/2023 Admissions Officer Referral for Screening for malignant neoplasm of colon Referring Physician: Aditya Joyce [facility], Encounter Date: 08/18/2023 Orthopedic Surgeon Referral for Osteoarthritis of bilateral hip joints Referring Physician: Aditya Joyce [facility], Encounter Date: 08/18/2023 Admissions Officer Referral for Cirrhosis of liver Referring Physician: Kyaw Mccann, Encounter Date: 08/18/2023 Geopolitics Teacher Referral for Type 2 diabetes mellitus without complication Referring Physician: Kyaw Mccann, Encounter Date: 11/24/2023 Java Web Application Developer Referral for O bstructive sleep apnea syndrome Referring Physician: Kyaw Mccann, Encounter Date: 11/24/2023 Referring Physician: Kyaw Mccann, Encounter Date: 11/24/2023 Admissions Officer Referral for Screening for malignant neoplasm of colon Referring Physician: Kyaw Mccann, Encounter Date: 11/24/2023 Orthopedic Surgeon Referral for Osteoarthritis of bilateral hip joints Referring Physician: Kyaw Mccann, Encounter Date: 11/24/2023 Admissions Officer Referral for Cirrhosis of liver Referring Physician: Kyaw Mccann, Encounter Date: 11/24/2023 Mail Clerk Bills 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 Referring Physician: Kyaw Mccann Medicine, Encounter Date: 11/24/2023 Geopolitics Teacher Referral for Type 2 diabetes mellitus without complication Referring Physician: Aditya Joyce [facility], Encounter Date: 12/29/2023 Java Web Application Developer Referral for O bstructive sleep apnea syndrome Referring Physician: Aditya Joyce [facility], Encounter Date: 12/29/2023 Referring Physician: Aditya Joyce [facility], Encounter Date: 12/29/2023 Admissions Officer Referral for Screening for malignant neoplasm of colon Referring Physician: Aditya Joyce [facility], Encounter Date: 12/29/2023 Orthopedic Surgeon Referral for Osteoarthritis of bilateral hip joints Referring Physician: Aditya Joyce [facility], Encounter Date: 12/29/2023 Admissions Officer Referral for Cirrhosis of liver Referring Physician: Aditya Joyce [facility], Encounter Date: 12/29/2023 Mail Clerk Bills 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 Referring Physician: Aditya Joyce [facility], Encounter Date: 12/29/2023 Results Created Date Observation Date Name Description Value Unit Range Abnormal Flag Note LastModifiedBy Organization Detail LastModifiedTime 06/25/19 24 06/25/2023 urina lysis , dipst ick Leukocytes (reference range: negative georgina/ l) Negati ve Not Available [facility] [address] [facility] [address], [place], [address], 06/25/2023 16:21:08 06/25/19 24 06/25/2023 urina lysis , dipst ick Nitrite (reference rage: negative mg/dl) negati ve Not Available [facility] Internal [facility] [address] [facility] [address], [place], [address], 06/25/2023 16:21:08 06/25/19 24 06/25/2023 urina lysis , dipst ick Urobilinogen (reference range: 0.2-1 mg/dl) 0.2 Not Available [facility] Internal [facility] [address], [place], [address], 06/25/2023 16:21:08 06/25/19 24 06/25/2023 urina lysis , dipst ick Protein (reference range: negative mg/dl) Negati ve Not Available [facility] Internal [facility] [address], [place], [address], 06/25/2023 16:21:08 06/25/19 24 06/25/2023 urina lysis , dipst ick pH (reference range: 5-7) 5.0 Not Available [facility] [address] [facility] [address], [place], [address], 06/25/2023 16:21:08 06/25/19 24 06/25/2023 urina lysis , dipst ick Blood (reference range: negative Thor/ l) Negati ve Not Available [facility] Internal [facility] [address], [place], [address], 06/25/2023 16:21:08 06/25/19 24 06/25/2023 urina lysis , dipst ick Specific [place] (reference range: 1.005-1.030) 1.015 Not Available [facility] Internal [facility] [address], [place], [address], 06/25/2023 16:21:08 06/25/19 24 06/25/2023 urina lysis , dipst ick Ketone (reference range: negative mg/dl) Negati ve Not Available [facility] Internal [facility] [address] [facility] [address], [place], [address], 06/25/2023 16:21:08 06/25/19 24 06/25/2023 urina lysis , dipst ick Bilirubin (reference range: negative mg/dl) Negati ve Not Available [facility] Internal [facility] [address], [place], [address], 06/25/2023 16:21:08 06/25/19 24 06/25/2023 urina lysis , dipst ick Glucose (reference range: negative mg/dl) Negati ve Not Available [facility] Internal [facility] [address], [place], [address], 06/25/2023 16:21:08 06/25/19 24 06/25/2023 urina lysis , dipst ick Appearance Clear Not Available [facility] Internal [facility] [address], [place], [address], 06/25/2023 16:21:08 06/25/19 24 06/25/2023 urina lysis , dipst ick Color Yellow Not Available [facility] Internal [facility] [address], [place], [address], 06/25/2023 16:21:08 08/19/19 24 08/19/2023 CBC/C OMPLE TE BLD COUNT W/DIF F white blood cells 3.8 x10'3 /uL 4.2-10 .8 low Not Available [facility] (Lab) [address], [place], [address], 08/19/2023 13:10:18 08/19/19 24 08/19/2023 CBC/C OMPLE TE BLD COUNT W/DIF F red blood cells 4.28 x10'6 /uL 3.80-5 .20 Not Available [facility] (Lab) [address] [place], [address], 08/19/2023 13:10:18 08/19/19 24 08/19/2023 CBC/C OMPLE TE BLD COUNT W/DIF F hemoglobin 13.6 g/dL 12.0-1 5.6 Not Available [facility] (Lab) [address] [place], [address], 08/19/2023 13:10:18 08/19/19 24 08/19/2023 CBC/C OMPLE TE BLD COUNT W/DIF F hematocrit 43.3 % 35.7-4 5.7 Not Available [facility] (Lab) [address] [place], [address], 08/19/2023 13:10:18 08/19/19 24 08/19/2023 CBC/C OMPLE TE BLD COUNT W/DIF F mean red cell volume 101.2 fL 82.0-9 9.0 high Not Available [facility] (Lab) [address] [place], [address], 08/19/2023 13:10:18 08/19/19 24 08/19/2023 CBC/C OMPLE TE BLD COUNT W/DIF F mean red cell hemoglobin 31.8 pg 27.0-3 3.0 Not Available [facility] (Lab) [address] [place], [address], 08/19/2023 13:10:18 08/19/19 24 08/19/2023 CBC/C OMPLE TE BLD COUNT W/DIF F mean RBC HGB concentratio n 31.4 g/dL 31.0-3 6.0 Not Available [facility] (Lab) [address] [place], [address], 08/19/2023 13:10:18 08/19/19 24 08/19/2023 CBC/C OMPLE TE BLD COUNT W/DIF F red cell distribution width 14.4 % 11.8-1 5.5 Not Available [facility] (Lab) [address] [place], [address], 08/19/2023 13:10:18 08/19/19 24 08/19/2023 CBC/C OMPLE TE BLD COUNT W/DIF F platelets 149 x10'3 /uL 150-40 0 low Not Available [facility] (Lab) [address] [place], [address], 08/19/2023 13:10:18 08/19/19 24 08/19/2023 CBC/C OMPLE TE BLD COUNT W/DIF F mean platelet volume 9.8 fL 9.0-12 .4 Not Available [facility] (Lab) [address] [place], [address], 08/19/2023 13:10:18 08/19/19 24 08/19/2023 CBC/C OMPLE TE BLD COUNT W/DIF F neutrophils 54.0 % 39.0-7 2.0 Not Available [facility] (Lab) [address] [place], [address], 08/19/2023 13:10:18 08/19/1908/19/2023 CBC/C OMPLE TE BLD COUNT W/DIF F lymphocytes 30.4 % 16.0-4 7.0 Not Available [facility] (Lab) [address] [place], [address], 08/19/2023 13:10:18 08/19/1908/19/2023 CBC/C OMPLE TE BLD COUNT W/DIF F monocytes 9.8 % 5.0-12 .0 Not Available [facility] (Lab) [address] [place], [address], 08/19/2023 13:10:18 08/19/19 24 08/19/2023 CBC/C OMPLE TE BLD COUNT W/DIF F eosinophils 4.5 % 1.0-7. 0 Not Available [facility] (Lab) [address] [place], [address], 08/19/2023 13:10:18 08/19/19 24 08/19/2023 CBC/C OMPLE TE BLD COUNT W/DIF F basophils 0.8 % 0.0-2. 0 Not Available [facility] (Lab) [address] [place], [address], 08/19/2023 13:10:18 08/19/19 24 08/19/2023 CBC/C OMPLE TE BLD COUNT W/DIF F immature granulocytes 0.5 % 0.00-0 .50 Not Available [facility] (Lab) [address] [place], [address], 08/19/2023 13:10:18 08/19/19 24 08/19/2023 CBC/C OMPLE TE BLD COUNT W/DIF F neutrophils, absolute count 2.04 x10'3 /uL 1.5-8. 0 Not Available [facility] (Lab) [address] [place], [address], 08/19/2023 13:10:18 08/19/1908/19/2023 CBC/C OMPLE TE BLD COUNT W/DIF F lymphocytes, absolute count 1.15 x10'3 /uL 1.07-3 .43 Not Available [facility] (Lab) [address] [place], [address], 08/19/2023 13:10:18 08/19/19 24 08/19/2023 CBC/C OMPLE TE BLD COUNT W/DIF F monocytes, absolute count 0.37 x10'3 /uL 0.29-0 .99 Not Available [facility] (Lab) [address] [place], [address], 08/19/2023 13:10:18 08/19/19 24 08/19/2023 CBC/C OMPLE TE BLD COUNT W/DIF F eosinophils, absolute count 0.17 x10'3 /uL 0.02-0 .53 Not Available [facility] (Lab) [address] [place], [address], 08/19/2023 13:10:18 08/19/1908/19/2023 CBC/C OMPLE TE BLD COUNT W/DIF F basophils, absolute count 0.03 x10'3 /uL 0.01-0 .08 Not Available [facility] (Lab) [address] [place], [address], 08/19/2023 13:10:18 08/19/19 24 08/19/2023 CBC/C OMPLE TE BLD COUNT W/DIF F immature granulocytes ,absolute 0.02 x10'3 /uL 0.00-0 .05 Not Available [facility] (Lab) [address] [place], [address], 08/19/2023 13:10:18 08/19/19 24 08/19/2023 CBC/C OMPLE TE BLD COUNT W/DIF F nucleated red blood cells 0.0 % -0 Not Available [facility] (Lab) [address] [place], [address], 08/19/2023 13:10:18 08/19/19 24 08/19/2023 CBC/C OMPLE TE BLD COUNT W/DIF F NRBC# 0.00 x10'3 /uL Not Available [facility] (Lab) [address] [place], [address], 08/19/2023 13:10:18 08/19/19 24 08/19/2023 LIPID PANEL cholesterol 137 mg/dL 140-19 9 low NIH VEENA NSUS RECOM MENDA TION FOR NISA STERO L: ADULT CHILD LOW RISK: <200 <170 BORDE RLINE : <200- 239 ----- HIGH RISK: >240 >200 Not Available [facility] (Lab) [address] [place], [address], 08/19/2023 13:17:40 08/19/19 24 08/19/2023 LIPID PANEL triglyceride s 136 mg/dL 0-150 NIH VEENA NSUS REPOR T RECOM MENDA TION FOR TRIGL YCERI NYDIA: ADULT CHILD LOW RISK: <150 ----- BODER LINE: 150-1 99 ----- HIGH RISK: >200 ----- Not Available [facility] (Lab) [address] [place], [address], 08/19/2023 13:17:40 08/19/19 24 08/19/2023 LIPID PANEL HDL cholesterol 65 mg/dL 40- Not Available [facility] (Lab) [address] [place], [address], 08/19/2023 13:17:40 08/19/19 24 08/19/2023 LIPID PANEL LDL cholesterol, calculated 45 mg/dL 0-130 NIH VEENA NSUS REPOR T RECOM MENDA TIONS FOR LDL: ADULT CHILD LOW RISK <130 <110 (OPTI MAL LDL) <100 ----- OLGA RLINE : 130-1 59 ----- HIGH RISK: >160 >130 A TRIGL YCERI DE RESUL T >400 INVAL IDATE S THE CALCU LATIO N FOR LDL FRACT IONAT ION - THE LDL RESUL T WILL NOT BE REPOR ALHAJI. Not Available [facility] (Lab) [address] [place], [address], 08/19/2023 13:17:40 08/19/19 24 08/19/2023 COMPR EHENS FLY METAB OLIC PANEL sodium 137 mmol/ L 137-14 5 Not Available [facility] (Lab) [address] [place], [address], 08/19/2023 13:17:46 08/19/1908/19/2023 COMPR EHENS FLY METAB OLIC PANEL potassium 4.9 mmol/ L 3.5-5. 1 Not Available [facility] (Lab) [address] [place], [address], 08/19/2023 13:17:46 08/19/19 24 08/19/2023 COMPR EHENS FLY METAB OLIC PANEL chloride 108 mmol/ L 98-107 high Not Available [facility] (Lab) [address] [place], [address], 08/19/2023 13:17:46 08/19/19 24 08/19/2023 COMPR EHENS FLY METAB OLIC PANEL carbon dioxide 29 mmol/ L 22-30 Not Available [facility] (Lab) [address] [place], [address], 08/19/2023 13:17:46 08/19/19 24 08/19/2023 COMPR EHENS FLY METAB OLIC PANEL anion gap 4.9 mmol/ L 14-22 low Not Available [facility] (Lab) [address] [place], [address], 08/19/2023 13:17:46 08/19/19 24 08/19/2023 COMPR EHENS FLY METAB OLIC PANEL glucose 102 mg/dL 70-99 high Not Available [facility] (Lab) [address] [place], [address], 08/19/2023 13:17:46 08/19/19 24 08/19/2023 COMPR EHENS FLY METAB OLIC PANEL BUN 15 mg/dL 8-19 Not Available [facility] (Lab) [address] [place], [address], 08/19/2023 13:17:46 08/19/19 24 08/19/2023 COMPR EHENS FLY METAB OLIC PANEL creatinine 1.01 mg/dL 0.66-1 .25 Not Available [facility] (Lab) [address] [place], [address], 08/19/2023 13:17:46 08/19/19 24 08/19/2023 COMPR EHENS FLY METAB OLIC PANEL GFR 53 Refer ence Range : Whitney ge GFR Healt hy Adult : >60 mL/mi n/1.7 3 m2 Chron ic Kidne y Disea se: 15-60 mL/mi n/1.7 3 m2 Kidne y Failu re: <15/m L/min /1.73 m2 www.n iddk. nih.g ov The MDRD study equat ion has not been valid ated in child oscar <18 years of age; pregn ant women ; the elder ly >85 years of age; or in some racia l or ethni c subgr oups, such as Hispa nics. Outsi de the valid ated hans eters , estim ated GFR is less accur ate, requi ring clini diamond judgm ent on a case- by-ca se basis . Clini diamond inter preta tion for other races and ages must be made by the clini kareem. The MDRD study equat ion has not been valid ated for the evalu ation of serum creat inine relat ed to nutri derrell l statu s or medic ation usage . For perso ns <18 years of age, a pedia tric GFR calcu lator is avail able on the [facility] websi te: https ://albina w.kid janey.o rg/pr ofess ional s/kdo qi/gf r_cal culat or Not Available [facility] (Lab) [address] [place], [address], 08/19/2023 13:17:46 08/19/19 24 08/19/2023 COMPR EHENS FLY METAB OLIC PANEL alkaline phosphatase 65 U/L 38-126 Not Available [facility] (Lab) [address] [place], [address], 08/19/2023 13:17:46 08/19/19 24 08/19/2023 COMPR EHENS FLY METAB OLIC PANEL alanine aminotransfe rase 36 U/L 0-35 high Not Available [facility] (Lab) [address] [place], [address], 08/19/2023 13:17:46 08/19/19 24 08/19/2023 COMPR EHENS FLY METAB OLIC PANEL aspartate aminotransfe rase 44 U/L 15-37 high Not Available [facility] (Lab) [address] [place], [address], 08/19/2023 13:17:46 08/19/19 24 08/19/2023 COMPR EHENS FLY METAB OLIC PANEL bilirubin, total 0.50 mg/dL 0.20-1 .30 Not Available [facility] (Lab) [address] [place], [address], 08/19/2023 13:17:46 08/19/19 24 08/19/2023 COMPR EHENS FLY METAB OLIC PANEL calcium 9.0 mg/dL 8.4-10 .2 Not Available [facility] (Lab) [address] [place], [address], 08/19/2023 13:17:46 08/19/19 24 08/19/2023 COMPR EHENS FLY METAB OLIC PANEL total protein 6.8 g/dL 6.3-8. 2 Not Available [facility] (Lab) [address] [place], [address], 08/19/2023 13:17:46 08/19/19 24 08/19/2023 COMPR EHENS FLY METAB OLIC PANEL albumin 3.9 g/dL 3.0-4. 4 Not Available [facility] (Lab) [address] [place], [address], 08/19/2023 13:17:46 08/19/19 24 08/19/2023 COMPR EHENS FLY METAB OLIC PANEL globulin 2.9 g/dL 2.6-4. 2 Not Available [facility] (Lab) [address] [place], [address], 08/19/2023 13:17:46 08/19/19 24 08/19/2023 COMPR EHENS FLY METAB OLIC PANEL A/G ratio 1.3 ratio 1.0-2. 0 Not Available [facility] (Lab) [address] [place], [address], 08/19/2023 13:17:46 08/19/19 24 08/19/2023 T4 FREE free T4 0.88 NG/dL 0.78-2 .19 Not Available [facility] (Lab) [address] [place], [address], 08/19/2023 13:29:08 08/19/19 24 08/19/2023 TSH thyroid-stim ulating hormone 10.500 uIU/m L 0.465- 4.680 high Not Available [facility] (Lab) [address] [place], [address], 08/19/2023 13:29:25 08/19/19 24 08/19/2023 HEMOG LOBIN A1C HA1C 5.8 % 4.0-6. 0 Diabe nakul Scree marisela Crite thomas: <5.7% Consi stent with absen ce of diabe nakul 5.7-6 .4% Consi stent with incre ased risk for diabe nakul (pred iabet es) >OR=6 .5% Consi stent with diabe nakul REFER ENCE: Diabe nakul Care 2015, 39(Kovacs ppl.1 ):s13 -s22 Not Available [facility] (Lab) [address] [place], [address], 08/19/2023 14:57:00 08/19/19 24 08/19/2023 MICRO ALBUM IN RANDO M URINE microalbumin , urine <6.0 mg/L 0.0-16 .6 Not Available [facility] (Lab) [address] [place], [address], 08/19/2023 15:30:50 08/19/19 24 08/25/2023 25-HY DROXY VITAM IN D LCMS D2+D3 25-hydroxy, vitamin D 34 NG/mL Refer ence Range : All Ages: Targe t level s 30 - 100 Not Available [facility] (Lab) [address] [place], [address], 08/25/2023 21:07:27 08/19/19 24 08/25/2023 25-HY DROXY VITAM IN D LCMS D2+D3 25-hydroxy, vitamin D-2 10 NG/mL This test was devel oped and its perfo rmanc e benjamin cteri stics deter mined by [facility]. It has not been clear ed or appro parmjit by the Food and Drug Admin istra tion. Not Available [facility] (Lab) [address] [place], [address], 08/25/2023 21:07:27 08/19/19 24 08/25/2023 25-HY DROXY VITAM IN D LCMS D2+D3 25-hydroxy, vitamin D-3 24 NG/mL This test was devel oped and its perfo rmanc e benjamin cteri stics deter mined by [facility]. It has not been clear ed or appro parmjit by the Food and Drug Admin istra tion. Perfo rmed at: [facility] [employer] [address] [place] [id number] Lab Direc tor: Luis Armando manrique MD, Phone : [phone] Not Available [facility] (Lab) [address] [place], [address], 08/25/2023 21:07:27 11/21/19 24 11/21/2023 COMPR EHENS FLY METAB OLIC PANEL sodium 139 mmol/ L 137-14 5 Not Available [facility] (Lab) [address] [place], [address], 11/21/2023 18:30:15 11/21/19 24 11/21/2023 COMPR EHENS FLY METAB OLIC PANEL potassium 5.0 mmol/ L 3.5-5. 1 Not Available [facility] (Lab) [address] [place], [address], 11/21/2023 18:30:15 11/21/19 24 11/21/2023 COMPR EHENS FLY METAB OLIC PANEL chloride 104 mmol/ L 98-107 Not Available [facility] (Lab) [address] [place], [address], 11/21/2023 18:30:15 11/21/19 24 11/21/2023 COMPR EHENS FLY METAB OLIC PANEL carbon dioxide 27 mmol/ L 22-30 Not Available [facility] (Lab) [address] [place], [address], 11/21/2023 18:30:15 11/21/19 24 11/21/2023 COMPR EHENS FLY METAB OLIC PANEL anion gap 13.0 mmol/ L 14-22 low Not Available [facility] (Lab) [address] [place], [address], 11/21/2023 18:30:15 11/21/19 24 11/21/2023 COMPR EHENS FLY METAB OLIC PANEL glucose 107 mg/dL 70-99 high Not Available [facility] (Lab) [address] [place], [address], 11/21/2023 18:30:15 11/21/19 24 11/21/2023 COMPR EHENS FLY METAB OLIC PANEL BUN 25 mg/dL 8-19 high Not Available [facility] (Lab) [address] [place], [address], 11/21/2023 18:30:15 11/21/19 24 11/21/2023 COMPR EHENS FLY METAB OLIC PANEL creatinine 1.03 mg/dL 0.66-1 .25 Not Available [facility] (Lab) [address] [place], [address], 11/21/2023 18:30:15 11/21/19 24 11/21/2023 COMPR EHENS FLY METAB OLIC PANEL GFR 52 Refer ence Range : Whitney ge GFR Healt hy Adult : >60 mL/mi n/1.7 3 m2 Chron ic Kidne y Disea se: 15-60 mL/mi n/1.7 3 m2 Kidne y Failu re: <15/m L/min /1.73 m2 www.n iddk. nih.g ov The MDRD study equat ion has not been valid ated in child oscar <18 years of age; pregn ant women ; the elder ly >85 years of age; or in some racia l or ethni c subgr oups, such as Hispa nics. Outsi de the valid ated hans eters , estim ated GFR is less accur ate, requi ring clini diamond judgm ent on a case- by-ca se basis . Clini diamond inter preta tion for other races and ages must be made by the clini kareem. The MDRD study equat ion has not been valid ated for the evalu ation of serum creat inine relat ed to nutri derrell l statu s or medic ation usage . For perso ns <18 years of age, a pedia tric GFR calcu lator is avail able on the [facility] websi te: https ://albina w.keila toth.o tarik/pr ofess ional s/kdo qi/gf r_cal culat or Not Available [facility] (Lab) [address] [place], [address], 11/21/2023 18:30:15 11/21/1911/21/2023 COMPR EHENS FLY METAB OLIC PANEL alkaline phosphatase 65 U/L 38-126 Not Available [facility] (Lab) [address] [place], [address], 11/21/2023 18:30:15 11/21/19 24 11/21/2023 COMPR EHENS FLY METAB OLIC PANEL alanine aminotransfe rase 50 U/L 0-35 high Not Available [facility] (Lab) [address] [place], [address], 11/21/2023 18:30:15 11/21/19 24 11/21/2023 COMPR EHENS FLY METAB OLIC PANEL aspartate aminotransfe rase 55 U/L 15-37 high Not Available [facility] (Lab) [address] [place], [address], 11/21/2023 18:30:15 11/21/19 24 11/21/2023 COMPR EHENS FLY METAB OLIC PANEL bilirubin, total 0.40 mg/dL 0.20-1 .30 Not Available [facility] (Lab) [address] [place], [address], 11/21/2023 18:30:15 11/21/1911/21/2023 COMPR EHENS FLY METAB OLIC PANEL calcium 9.8 mg/dL 8.4-10 .2 Not Available [facility] (Lab) [address] [place], [address], 11/21/2023 18:30:15 11/21/19 24 11/21/2023 COMPR EHENS FLY METAB OLIC PANEL total protein 7.1 g/dL 6.3-8. 2 Not Available [facility] (Lab) [address] [place], [address], 11/21/2023 18:30:15 11/21/19 24 11/21/2023 COMPR EHENS FLY METAB OLIC PANEL albumin 4.1 g/dL 3.0-4. 4 Not Available [facility] (Lab) [address] [place], [address], 11/21/2023 18:30:15 11/21/19 24 11/21/2023 COMPR EHENS FLY METAB OLIC PANEL globulin 3.0 g/dL 2.6-4. 2 Not Available [facility] (Lab) [address] [place], [address], 11/21/2023 18:30:15 11/21/19 24 11/21/2023 COMPR EHENS FLY METAB OLIC PANEL A/G ratio 1.4 ratio 1.0-2. 0 Not Available [facility] (Lab) [address] [place], [address], 11/21/2023 18:30:15 11/21/19 24 11/21/2023 LIPID PANEL cholesterol 143 mg/dL 140-19 9 NIH VEENA NSUS RECOM MENDA TION FOR NISA STERO L: ADULT CHILD LOW RISK: <200 <170 BORDE RLINE : <200- 239 ----- HIGH RISK: >240 >200 Not Available [facility] (Lab) [address] [place], [address], 11/21/2023 18:30:19 11/21/19 24 11/21/2023 LIPID PANEL triglyceride s 112 mg/dL 0-150 NIH VEENA NSUS REPOR T RECOM MENDA TION FOR TRIGL YCERI NYDIA: ADULT CHILD LOW RISK: <150 ----- BODER LINE: 150-1 99 ----- HIGH RISK: >200 ----- Not Available [facility] (Lab) [address] [place], [address], 11/21/2023 18:30:19 11/21/19 24 11/21/2023 LIPID PANEL HDL cholesterol 79 mg/dL 40- Not Available [facility] (Lab) [address] [place], [address], 11/21/2023 18:30:19 11/21/19 24 11/21/2023 LIPID PANEL LDL cholesterol, calculated 42 mg/dL 0-130 NIH VEENA NSUS REPOR T RECOM MENDA TIONS FOR LDL: ADULT CHILD LOW RISK <130 <110 (OPTI MAL LDL) <100 ----- BORDE RLINE : 130-1 59 ----- HIGH RISK: >160 >130 A TRIGL YCERI DE RESUL T >400 INVAL IDATE S THE CALCU LATIO N FOR LDL FRACT IONAT ION - THE LDL RESUL T WILL NOT BE REPOR ALHAJI. Not Available [facility] (Lab) [address] [place], [address], 11/21/2023 18:30:19 11/21/1911/21/2023 T4 FREE free T4 1.04 NG/dL 0.78-2 .19 Not Available [facility] (Lab) [address] [place], [address], 11/21/2023 18:40:56 11/21/1911/21/2023 TSH thyroid-stim ulating hormone 7.700 uIU/m L 0.465- 4.680 high Not Available [facility] (Lab) [address] [place], [address], 11/21/2023 18:57:15 11/21/1911/21/2023 VITAM IN D 25-HY DROXY [id number] 47.6 NG/mL 30-100 Vitam in D Statu s: Defic ient: <20 ng/mL Insuf ficie nt: 20-29 ng/mL Suffi cient : 30-10 0 ng/mL Not Available [facility] (Lab) [address] [place], [address], 11/21/2023 19:04:57 11/21/1911/21/2023 CBC/C OMPLE TE BLD COUNT W/DIF F white blood cells 6.6 x10'3 /uL 4.2-10 .8 Not Available [facility] (Lab) [address] [place], [address], 11/21/2023 19:07:05 11/21/1911/21/2023 CBC/C OMPLE TE BLD COUNT W/DIF F red blood cells 4.54 x10'6 /uL 3.80-5 .20 Not Available [facility] (Lab) [address] [place], [address], 11/21/2023 19:07:05 11/21/19 24 11/21/2023 CBC/C OMPLE TE BLD COUNT W/DIF F hemoglobin 14.6 g/dL 12.0-1 5.6 Not Available [facility] (Lab) [address] [place], [address], 11/21/2023 19:07:05 11/21/1911/21/2023 CBC/C OMPLE TE BLD COUNT W/DIF F hematocrit 45.9 % 35.7-4 5.7 high Not Available [facility] (Lab) [address] [place], [address], 11/21/2023 19:07:05 11/21/1911/21/2023 CBC/C OMPLE TE BLD COUNT W/DIF F mean red cell volume 101.1 fL 82.0-9 9.0 high Not Available [facility] (Lab) [address] [place], [address], 11/21/2023 19:07:05 11/21/1911/21/2023 CBC/C OMPLE TE BLD COUNT W/DIF F mean red cell hemoglobin 32.2 pg 27.0-3 3.0 Not Available [facility] (Lab) [address] [place], [address], 11/21/2023 19:07:05 11/21/1911/21/2023 CBC/C OMPLE TE BLD COUNT W/DIF F mean RBC HGB concentratio n 31.8 g/dL 31.0-3 6.0 Not Available [facility] (Lab) [address] [place], [address], 11/21/2023 19:07:05 11/21/1911/21/2023 CBC/C OMPLE TE BLD COUNT W/DIF F red cell distribution width 14.2 % 11.8-1 5.5 Not Available [facility] (Lab) [address] [place], [address], 11/21/2023 19:07:05 11/21/1911/21/2023 CBC/C OMPLE TE BLD COUNT W/DIF F platelets 98 x10'3 /uL 150-40 0 low Not Available [facility] (Lab) [address] [place], [address], 11/21/2023 19:07:05 11/21/1911/21/2023 CBC/C OMPLE TE BLD COUNT W/DIF F neutrophils 53.1 % 39.0-7 2.0 Not Available [facility] (Lab) [address] [place], [address], 11/21/2023 19:07:05 11/21/1911/21/2023 CBC/C OMPLE TE BLD COUNT W/DIF F lymphocytes 31.6 % 16.0-4 7.0 Not Available [facility] (Lab) [address] [place], [address], 11/21/2023 19:07:05 11/21/1911/21/2023 CBC/C OMPLE TE BLD COUNT W/DIF F monocytes 10.5 % 5.0-12 .0 Not Available [facility] (Lab) [address] [place], [address], 11/21/2023 19:07:05 11/21/1911/21/2023 CBC/C OMPLE TE BLD COUNT W/DIF F eosinophils 3.4 % 1.0-7. 0 Not Available [facility] (Lab) [address] [place], [address], 11/21/2023 19:07:05 11/21/1911/21/2023 CBC/C OMPLE TE BLD COUNT W/DIF F basophils 0.9 % 0.0-2. 0 Not Available [facility] (Lab) [address] [place], [address], 11/21/2023 19:07:05 11/21/1911/21/2023 CBC/C OMPLE TE BLD COUNT W/DIF F immature granulocytes 0.5 % 0.00-0 .50 Not Available [facility] (Lab) [address] [place], [address], 11/21/2023 19:07:05 11/21/19 24 11/21/2023 CBC/C OMPLE TE BLD COUNT W/DIF F neutrophils, absolute count 3.49 x10'3 /uL 1.5-8. 0 Not Available [facility] (Lab) [address] [place], [address], 11/21/2023 19:07:05 11/21/1911/21/2023 CBC/C OMPLE TE BLD COUNT W/DIF F lymphocytes, absolute count 2.07 x10'3 /uL 1.07-3 .43 Not Available [facility] (Lab) [address] [place], [address], 11/21/2023 19:07:05 11/21/19 24 11/21/2023 CBC/C OMPLE TE BLD COUNT W/DIF F monocytes, absolute count 0.69 x10'3 /uL 0.29-0 .99 Not Available [facility] (Lab) [address] [place], [address], 11/21/2023 19:07:05 11/21/1911/21/2023 CBC/C OMPLE TE BLD COUNT W/DIF F eosinophils, absolute count 0.22 x10'3 /uL 0.02-0 .53 Not Available [facility] (Lab) [address] [place], [address], 11/21/2023 19:07:05 11/21/1911/21/2023 CBC/C OMPLE TE BLD COUNT W/DIF F basophils, absolute count 0.06 x10'3 /uL 0.01-0 .08 Not Available [facility] (Lab) [address] [place], [address], 11/21/2023 19:07:05 11/21/19 24 11/21/2023 CBC/C OMPLE TE BLD COUNT W/DIF F immature granulocytes ,absolute 0.03 x10'3 /uL 0.00-0 .05 Not Available [facility] (Lab) [address] [place], [address], 11/21/2023 19:07:05 11/21/19 24 11/21/2023 CBC/C OMPLE TE BLD COUNT W/DIF F nucleated red blood cells 0.0 % -0 Not Available [facility] (Lab) [address] [place], [address], 11/21/2023 19:07:05 11/21/19 24 11/21/2023 CBC/C OMPLE TE BLD COUNT W/DIF F NRBC# 0.00 x10'3 /uL Not Available [facility] (Lab) [address] [place], [address], 11/21/2023 19:07:05 05/19/19 24 05/19/2023 XR, foot No observ ation record ed. [email or web address] [place] [address] [address] [place], [address], 10/21/2023 17:38:44 05/19/19 24 05/19/2023 XR, hip + pelvi s, unila teral No observ ation record ed. [facility] [address] [place], [address], 10/21/2023 17:39:06 06/24/19 XR, hip + pelvi s, bilat eral, 3 or 4 view [facility] [address] [place] [address] Roberto ordonez Name: MERCEDES QUIROZ ion #: [id number] Sex: F : 1944 4 Dictat ed By: Latasha Dawn Attend ing Physic gerber: HOME CALDERA Physic gerber: TOBYHOME SHAW Exam Date: 2023 11:19 AM Exam Name: XR HIPS/P TK BILAT 3-4V Admitt ing Diagno sis(es ): CLINIC AL INDICA TION: 78 years old, Female , pain TECHNI QUE: 2 radiog raphic views of the bilate ral hips were obtain ed. Compar ugo: none FINDIN GS/IMP RESSIO N: There is no eviden ce of acute fractu re or disloc ation. 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 There is no radiop aque foreig n body. Electr onical ly Signed by: Latasha Dawn at 2023 12:10: 59 PM [address] (Imaging) [address] [place], [place], [facility], 07/09/2023 15:01:58 06/24/19 24 06/24/2023 XR, hip, bilat eral No observ ation record ed. [address] [place], [address], 07/09/2023 15:01:58 06/24/19 24 SI joint s [id number]+ [facility] [address] [place] [address] [phone] Patien t Name: MERCEDES QUIROZ Access ion #: [id number] Sex: F : 1944 4 Dictat ed By: Latasha Dawn Attend ing Physic gerber: HOME CALDERA Physic gerber: TOBYHOME SHAW Exam Date: 2023 11:28 AM Exam Name: XR SI JOINTS 3V+ Admitt ing Diagno sis(es ): CLINIC AL INDICA TION: 78 years old, Female TECHNI QUE: 3 radiog raphic views of the bilate ral sacroi liac joints were obtain ed. Compar ugo: None FINDIN GS/IMP RESSIO N: There is no eviden ce of acute fractu re or disloc ation. The visual ized joint space is well mainta ined. The alignm ent is anatom ical. There is no radiop aque foreig n body. Electr onical ly Signed by: Latasha Dawn at 2023 12:17: 51 PM Page [email or web address] (Imaging) [address] [place], [address], 07/09/2023 15:01:59 06/24/19 24 XR, lumbo sacra l spine , 2 or 3 view [facility] [address] [place] [address] Patien t Name: HAYDERGladys Ordonez MERCEDES Access ion #: [id number] Sex: F : 1944 6 Dictat ed By: Latasha Dawn Attend ing Physic gerber: HOME CALDERA Orderi Physic gerber: HOME CALDERA Exam Date: 2023 11:21 AM Exam Name: XR L SPINE 2-3V Admitt ing Diagno sis(es ): INDICA TION: 78 years old, Female , pain COMPAR UGO: None TECHNI QUE: 3 views of the lumbar spine were obtain ed. FINDIN GS: The lumbar verteb ral alignm ent is normal . Modera te multil evel degene rative disc diseas e in the lumbos acral spine. No acute fractu re, verteb ral compre ssion deform ity or aggres sive osseou s lesion s. The parave rtebra l soft tissue s are grossl y unrema rkable . IMPRES MICHELLE: No acute fractu re. Electr onical ly Signed by: Latasha Dawn at 2023 12:18: 36 PM Page [address] (Imaging) [address] [place], [address], 07/09/2023 15:01:59 06/24/19 24 06/24/2023 XR, sacro iliac joint (s) No observ ation record ed. [email or web address] [facility] [address] [place], [address], 07/09/2023 15:02:00 06/24/19 24 06/24/2023 XR, lumbo sacra l spine , 2 or 3 view No observ ation record ed. [email or web address] [facility] [address] [place], [address], 10/22/2023 10:35:09 02/02/20 24 02/02/2024 US, abdom en No observ ation record ed. [address] [place], [address], 02/05/2024 09:38:20 03/10/19 25 03/10/2024 imagi ng/di agnos tic resul t No observ ation record ed. [place] [id number], [place], [address], 03/10/2024 19:02:45 Result Notes None recorded. Problems Name Problem SNOMED Code Status Onset Date Resolution Date Notes Provider Name and Address Organization Details Recorded Time Gastroesop hageal reflux disease without esophagiti s 734257776 Active 2022 Aditya lancaster MD [address] [facility], [facility] [address], [place], [address] , [place] [employer] 3 12:23:57 Thrombocyt openic disorder 829531940 Active 2022 Aditya lancaster MD [address] [facility], [address], [place], [address] , [place] [employer] 3 12:24:11 Moderate recurrent major depression 24172546 Active 2022 Aditya lancaster MD [address], [address], [place], [address] , [place] [facility] 3 12:25:15 Environmen shayy allergy 295376714 Active 2022 Aditya lancaster MD [address], [address], [place], [address] , [place] [facility] 3 12:26:00 Osteoarthr 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 4376915549891 00 Active 2022 Dima Ramos MD [address], [address], [place], [address] , [place] [facility] 3 15:09:42 COVID-19 733941054 Active 2022 Katie hernandez, [place] - [facility] 3 14:26:23 Chronic kidney disease 368500037 Active 2022 Aditya lancaster MD [address], [address], [place], [address] , [place] [facility] 3 12:25:04 Restless legs 27894047 Active 2023 Aditya lancaster MD [address], [address], [place], [address] , [place] [facility] 4 10:43:59 Sinus tachycardi a 61428473 Active 2023 Aditya lancaster MD [address], [address], [place], [address] , [place] [facility] 4 09:35:59 Osteoarthr itis of bilateral hip joints 5612058684115 05 Active 2023 Aditya lancaster MD [address], [address], [place], [address] , [place] [facility] 4 16:02:02 Deep venous thrombosis 952906048 Active Not Available [employer] 3 09:34:23 Body mass index 30+ - obesity 610768100 Active 2018 Not Available [employer] 3 09:34:23 Cataract 354294988 Active Not Available [facility] 3 09:34:23 Cirrhosis of liver 95870764 Active 2018 Not Available [facility] 3 09:34:23 Localized, primary osteoarthr itis of the hand 279055580 Active Not Available [facility] 3 09:34:23 Osteoarthr itis of knee 366210305 Active Not Available [facility] 3 09:34:23 Cervical spondylosi s without myelopathy 648439126 Active Not Available [facility] 3 09:34:23 Vitamin D deficiency 56431346 Active 2021 Not Available [facility] 3 09:34:23 Hypothyroi dism 34116303 Active Not Available [facility] 3 09:34:23 Anxiety 04399324 Active 2017 Not Available [facility] 3 09:34:23 Hyperlipid emia 84523741 Active 2021 Not Available [facility] 3 09:34:23 Essential hypertensi on 06627590 Active 2017 Not Available [facility] 3 09:34:23 Rhinitis 14531286 Active Not Available [facility] 3 09:34:23 Diabetes mellitus 35652717 Active Not Available [facility] 3 09:34:23 Obstructiv e sleep apnea syndrome 99809603 Active 2018 Not Available [facility] 3 09:34:24 Notes:CPAP set up 05/12/23 C PAP compliance 06/12/23 Medical History: Anxiety/Depression COVID infection 10/2022 Rhinitis Bruxism Obesity with MINA, 12/28/17, AHI = 73, on CPAP c/o IVRC Hypothyroidism Hyperlipidemia Hypertension T2DM with microalbuminuria JEAN PIERRE Cirrhosis CKD Vit D deficiency Thrombocytopenia Right DVT Cervical spondylosis Left hip OA Procedure History: T&A 1947 Tubal ligation 1979 Left elbow/wrist surgery 1984 Cholecystectomy 1993 Right cataract extraction with IOL 2007 Left cataract extraction with IOL 2009 Bilateral knee replacement 2013 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 Procedures Surgical History Date Name Laterality Status Provider Name and Address Organization Details Recorded Time 024 Medicare Wellness CPT Code, subsequent completed Puneet King LPN [employer] 08/12/2023 11:06:57 024 Colonoscopy completed RAMÓN Hsieh [employer] 08/18/2023 10:39:18 023 Ortho - Cortisone Injection completed Dima Ramos MD [address] [facility], [address], [address], [employer] [facility] 10/01/2022 15:08:00 021 Most Recent Bone Density completed Not Available [facility] 04/10/2022 03:14:36 020 Date of Last Colonoscopy completed Not Available [facility] 04/10/2022 03:14:36 013 Total knee arthroplasty completed Not Available [facility] 04/10/2022 03:14:37 013 Total knee arthroplasty completed Not Available [facility] 04/10/2022 03:14:37 Gastrointestinal Surgery completed Not Available [facility] 04/10/2022 03:14:37 other completed Not Available [facility] 04/10/2022 03:14:37 Gallbladder Surgery completed Not Available [facility] 04/10/2022 03:14:37 Tonsillectomy completed Not Available [facility] 04/10/2022 03:14:37 Knee Surgery completed Not Available [facility] 04/10/2022 03:14:37 Cataract Surgery completed Not Available [facility] 04/10/2022 03:14:37 Hernia Repair completed Not Available [facility] 04/10/2022 03:14:37 ARSON INVESTIGATOR Surgery completed Not Available [facility] 04/10/2022 03:14:37 other completed Not Available [facility] 04/10/2022 03:14:37 Imaging Results Imaging Date Name Status LastModified by Organiz ation Details LastModified Time 05/19/2023 XR, foot completed [email or web address] [facility] [address] [place], [address], 10/21/2023 17:38:44 05/19/2023 XR, hip + pelvis, unilateral completed [facility] [address] [place], [address], 10/21/2023 17:39:06 06/24/2023 XR, hip + pelvis, bilateral, 3 or 4 view completed [email or web address] [facility] (Imaging) [address] [place], [address], 07/09/2023 15:01:58 06/24/2023 XR, hip, bilateral completed [email or web address] [facility] [address] [place], [address], 07/09/2023 15:01:58 06/24/2023 SI joints 3vws+ completed [email or web address] [facility] (Imaging) [address] [place], [address], 07/09/2023 15:01:59 06/24/2023 XR, lumbosacral spine, 2 or 3 view completed [email or web address] [facility] (Imaging) [address] [place], [address], 07/09/2023 15:01:59 06/24/2023 XR, sacroiliac joint(s) completed [email or web address] [facility] [address] [place], [address], 07/09/2023 15:02:00 06/24/2023 XR, lumbosacral spine, 2 or 3 view completed [email or web address] [facility] [address] [place], [address], 10/22/2023 10:35:09 02/02/2024 US, abdomen completed [email or web address] [facility] [address] [place], [address], 02/05/2024 09:38:20 03/10/2024 imaging/diagnos tic result active [facility] [address] [facility] [address], [place], [address], 03/10/2024 19:02:45 Procedure Notes None recorded. Medical Equipment None Reported. Allergies No known drug allergies Medications Name Sig Start Date Stop Date Status Note LastModified by Organization Details LastModified Time cyclobenz aprine 10 mg tablet TAKE 1 TABLET BY MOUTH EVERY DAY NEEDED 12/28 completed Not Available Not Available Not Available amoxicill in 500 mg capsule TAKE 2 CAPSULE BY MOUTH NOW THEN TAKE 1 THREE TIMES DAILY UNTIL GONE 03/31 completed Not Available Not Available Not Available fluconazo le 100 mg tablet Take 1 tablet every day by oral route. 10/29 completed Not Available Not Available Not Available metformin 500 mg tablet Take 1 tablet twice a day by oral route. 10/26 completed Not Available Not Available Not Available prednison e 10 mg tablet TAKE 1 TABLET BY MOUTH TWICE DAILY 11/23 completed Not Available Not Available Not Available venlafaxi ne ER 75 mg capsule,e xtended release 24 hr Take 1 capsule every day by oral route. active Not Available Not Available No t Available azithromy seth 250 mg tablet TAKE 2 TABLETS (500 MG) BY ORAL ROUTE ONCE DAILY FOR 1 DAY THEN 1 TABLET (250 MG) BY ORAL ROUTE ONCE DAILY FOR 4 DAYS 09/17 completed Not Available Not Available Not Available fluconazo le 150 mg tablet Take 1 tablet every day by oral route for 3 days. 01/30 completed Not Available Not Available Not Available benzonata te 200 mg capsule Take 1 capsule 3 times a day by oral route as needed. active Not Available Not Available No t Available cephalexi n 250 mg capsule TAKE 1 CAPSULE BY MOUTH FOUR TIMES DAILY FOR 7 DAYS 12/02 completed Not Available Not Available Not Available Claritin 10 mg tablet Take 1 tablet every day by oral route. 03/13 completed Not Available Not Available Not Available meloxicam 15 mg tablet TK 1 T PO BID. 07/23 completed Not Available Not Available Not Available prednison e 20 mg tablet 05/30 completed Not Available Not Available Not Available Levoxyl 175 mcg tablet active Not Available Not Available Not Available promethaz ine 6.25 mg-codein e 10 mg/5 mL syrup Take 5 mL every 6 hours by oral route. active Not Available Not Available No t Available penicilli n V potassium 500 mg tablet active Not Available Not Available Not Available peg-elect rolyte solution 420 gram oral solution active Not Available Not Available Not Available tramadol 50 mg tablet TAKE 1 TABLET BY MOUTH EVERY 8 HOURS NEEDED 11/23 completed Not Available Not Available Not Available triamcino lone acetonide 0.1 % topical cream APPLY A THIN LAYER TO THE AFFECTED AREA TWICE DAILY NEEDED 03/07 completed Not Available Not Available Not Available amoxicill in 500 mg tablet TAKE 1 TABLET BY MOUTH THREE TIMES DAILY UNTIL GONE 03/13 completed Not Available Not Available Not Available acyclovir 800 mg tablet active Not Available Not Available Not Available prednison e 10 mg tablets in a dose pack Take 1 tab by mouth, 3 times a day for 3 daysTake 1 tab by mouth 2 times a day for 2 daysTake 1 tab by mouth once a day for 1 day 07/25 completed Not Available Not Available Not Available Celebrex 200 mg capsule Take 1 capsule by oral route for 90 days. active Not Available Not Available No t Available levothyro xine 100 mcg tablet TAKE 1 TABLET BY MOUTH EVERY DAY active Not Available Not Available No t Available alprazola m 0.25 mg tablet Take 1 tablet every day by oral route as needed. active Not Available Not Available No t Available lorazepam 0.5 mg tablet Take 0.5 tablets as needed by oral route. 11/[address] mccarthy Not Available Not Available Not Available ropinirol e 0.25 mg tablet TK 1 T PO QD. NO DRIVING OR ALCOHOL WITH SEDATING MEDICATI ONS. active Not Available Not Available No t Available [employer] Ultra Test strips USE TO TEST ONCE DAILY AND NEEDED 03/13 completed Not Available Not Available Not Available Kenalog 10 mg/mL suspensio n for injection Take 20 mg by injectio n route. 12/02 completed [facility]: [phone] 4-20 Not Available Not Available Not Available benzonata te 100 mg capsule Take 1 capsule every 4 hours by oral route as needed. active Not Available Not Available No t Available hydrocodo ne 7.5 mg-acetam inophen 325 mg tablet active Not Available Not Available Not Available cephalexi n 500 mg capsule TK 1 C PO Q 6 HOURS active Not Available Not Available No t Available levothyro xine 125 mcg tablet TAKE 1 TABLET BY MOUTH EVERY DAY 12/28 completed Not Available Not Available Not Available nystatin 100,000 unit/gram topical cream APPLY TO THE AFFECTED AREA(S) BY TOPICAL ROUTE 2 TIMES PER DAY PRN; mix with triamcin olone 03/07 completed Not Available Not Available Not Available clotrimaz ole-betam ethasone 1 %-0.05 % topical cream APPLY TO THE AFFECTED AND SURROUND ING AREAS OF SKIN BY TOPICAL ROUTE 2 TIMES PER DAY IN THE MORNING AND EVENING FOR 2 WEEKS 09/21 completed Not Available Not Available Not Available levothyro xine 150 mcg tablet TAKE 1 TABLET BY MOUTH EVERY DAY 06/24 completed Not Available Not Available Not Available nystatin- triamcino lone 100,000 unit/g-0. 1 % topical cream APPLY TOPICALL Y TO THE AFFECTED AREA TWICE DAILY IN THE MORNING AND IN THE EVENING 05/31 completed Not Available Not Available Not Available diclofena c sodium 75 mg tablet,de layed release TAKE 1 TABLET BY MOUTH TWICE DAILY 2024 active Not Available Not Available Not Avai lable cephalexi n 500 mg tablet Take 1 tablet twice a day by oral route. active Not Available Not Available No t Available etodolac 400 mg tablet TAKE 1 TABLET BY MOUTH TWICE DAILY active Not Available Not Available No t Available monteluka st 10 mg tablet TAKE 1 TABLET BY MOUTH EVERY DAY active Not Available Not Available No t Available levothyro xine 200 mcg tablet TAKE 1 TABLET BY MOUTH EVERY DAY 03/10 completed dose lowered to 150mcg Not Available Not Available Not Available bisacodyl 5 mg tablet,de layed release TAKE 6 TABLETS BY MOUTH AT 8AM ON 07/20 completed Not Available Not Available Not Available lisinopri l 5 mg tablet TAKE 1/2 TABLET BY MOUTH DAILY active Not Available Not Available No t Available hydrochlo rothiazid e 25 mg tablet Take 1 tablet every day by oral route for 30 days. 01/30 completed Not Available Not Available Not Available furosemid e 20 mg tablet TK 1 T PO QD FOR 3 DAYS THEN TAKE PRN IF YOU HAVE EDEMA IN THE MORNING active Not Available Not Available No t Available metoprolo l succinate ER 25 mg tablet,ex tended release 24 hr TAKE 1 TABLET BY MOUTH DAILY active Not Available Not Available No t Available ergocalci ferol (vitamin D2) 1,250 mcg (50,000 unit) capsule TAKE 1 CAPSULE BY MOUTH EVERY OTHER WEEK 03/13 completed Not Available Not Available Not Available methylpre dnisolone 4 mg tablets in a dose pack TK PO UTD 05/09 completed Not Available Not Available Not Available albuterol sulfate HFA 90 mcg/actua tion aerosol inhaler INL 2 PFS PO Q 4 H PRN 08/29 completed Not Available Not Available Not Available cefdinir 300 mg capsule Take 1 capsule every 12 hours by oral route for 7 days. active Not Available Not Available No t Available fluticaso ne propionat e 50 mcg/actua tion nasal spray,arsenio pension USE 2 SPRAYS IN EACH NOSTRIL DAILY active Not Available Not Available No t Available metformin ER 500 mg tablet,ex tended release 24 hr TAKE 1 TABLET BY MOUTH TWICE DAILY 03/13 completed Not Available Not Available Not Available lisinopri l 2.5 mg tablet TK 1 T PO QD active Not Available Not Available No t Available calcitrio l 0.25 mcg capsule TAKE 1 CAPSULE BY MOUTH EVERY OTHER DAY 11/23 completed Not Available Not Available Not Available amoxicill in 875 mg-potass ium clavulana te 125 mg tablet TAKE 1 TABLET BY MOUTH TWICE DAILY FOR 7 DAYS 12/02 completed Not Available Not Available Not Available AcipHex 20 mg tablet,de layed release active Not Available Not Available Not Available esomepraz ole magnesium 20 mg capsule,d elayed release 2019 active Not Available Not Available Not Avai lable olmesarta n 5 mg tablet active Not Available Not Available Not Available enoxapari n 30 mg/0.3 mL subcutane ous syringe active Not Available Not Available Not Available rosuvasta tin 20 mg tablet TAKE 1 TABLET BY MOUTH EVERY DAY active Not Available Not Available No t Available Mucinex DM 30 mg-600 mg tablet,ex tended release 12 hr Take 1 tablet every 12 hours by oral route for 10 days. active Not Available Not Available No t Available tizanidin e 4 mg capsule TAKE 1 CAPSULE BY MOUTH DAILY AT BEDTIME 07/29 completed Not Available Not Available Not Available Boostrix Tdap 2.5 Lf unit-8 mcg-5 Lf/0.5 mL intramusc ular syringe ADM 0.5ML IM UTD 02/13 completed Not Available Not Available Not Available chlorhexi dine gluconate 0.12 % mouthwash active Not Available Not Available No t Available magnesium 1 tab daily 10/23 completed Not Available Not Available Not Available Vitamin C 1 daily 05/31 completed Not Available Not Available Not Available diclofena c sodium 03/31 completed Not Available Not Available Not Available Claritin qd 01/04 completed Not Available Not Available Not Available Baby Aspirin one tablet daily 07/06 completed Not Available Not Available Not Available lidocaine (PF) 10 mg/mL (1 %) injection solution In office injectio n administ ered by the provider 10/03 completed [facility]: [phone] 6-17 Not Available Not Available Not Available lidocaine (PF) 20 mg/mL (2 %) injection solution In office injectio n administ ered by the provider 07/25 completed Not Available Not Available Not Available Durezol 0.05 % eye drops 01/30 completed Not Available Not Available Not Available GaviLyte- G 236 gram-22.7 4 gram-6.74 gram-5.86 gram oral solution MIX AND DRINK 1/2 CONTAINE R AT 5PM ON 07/20 AND 1/2 AT 5AM ON 07/21 DIRECTED 08/17 completed Not Available Not Available Not Available ropivacai ne (PF) 5 mg/mL (0.5 %) injection solution Take 20 mg by injectio n route. 12/02 completed [facility] [address]-12 4- Not Available Not Available Not Available Xarelto 15 mg tablet Take 1 tablet twice a day by oral route. 09/21 completed Not Available Not Available Not Available Xarelto 20 mg tablet 07/23 completed Not Available Not Available Not Available lotepredn ol etabonate 0.5 % eye gel drops INSTILL 1 DROP IN LEFT EYE TWICE DAILY active Not Available Not Available No t Available Fluzone High-Dose (PF) 180 mcg/0.5 mL intramusc ular syringe INJECT 0.5 ML INTRAMUS CULARLY DIRECTED . active Not Available Not Available No t Available Fluzone High-Dose (PF) 180 mcg/0.5 mL intramusc ular syringe 03/22 completed Not Available Not Available Not Available Fluzone High-Dose 4912-4213 (PF) 180 mcg/0.5 mL intramusc ular syringe active Not Available Not Available Not Available Fluzone High-Dose 3428-4063 (PF) 180 mcg/0.5 mL intramusc ular syringe active Not Available Not Available Not Available Ozempic 0.25 mg or 0.5 mg (2 mg/1.5 mL) subcutane ous pen injector INJECT 0.25 MG UNDER THE SKIN EVERY WEEK 07/29 completed duplicat e Not Available Not Available Not Available OneTouch Ultra Blue Test Strip U TO CHECK BS ONCE D AND PRN active Not Available Not Available No t Available OneTouch Ultra2 Meter USE DIRECTED TO TEST BLOOD SUGAR 03/07 completed Not Available Not Available Not Available OneTouch Delica Plus Lancet 33 gauge USE TO CHECK SUGAR ONCE DAILY AND NEEDED 11/02 completed Not Available Not Available Not Available Fluzone High-Dose 2018- (PF) 180 mcg/0.5 mL intramusc ular syringe active Not Available Not Available Not Available Fluzone High-Dose Quad (PF) 240 mcg/0.7 mL IM syringe ADM 0.7ML IM UTD 02/13 completed Not Available Not Available Not Available Ozempic 1 mg/dose (4 mg/3 mL) subcutane ous pen injector INJECT 1 MG UNDER THE SKIN ONE DAY A WEEK active Not Available Not Available No t Available Paxlovid 300 mg (150 mg x 2)-100 mg tablets in a dose pack TAKE 2 NIRMATRE LVIR TABLETS AND 1 RITONAVI R TABLET TOGETHER BY MOUTH TWICE DAILY FOR 5 DAYS DIRECTED 12/02 completed Not Available Not Available Not Available Ozempic 0.25 mg or 0.5 mg (2 mg/3 mL) subcutane ous pen injector INJECT 0.5 MG UNDER THE SKIN ONCE EVERY WEEK 11/23 completed Not Available Not Available Not Available Vitals Date Recorded Body height Body mass index (BMI) Body weight Heart rate Oxygen saturation Oxygen saturation in Arterial blood by Pulse oximetry Body temperature Systolic blood pressure Diastolic blood pressure Provider Name and Address Organization Details Last Updated DateTime 4 165.1 cm 34.6 kg/m2 85643.2 1 g 83 /min 97 % 97 % 97.3 [degF] 120 mm[Hg] 82 mm[Hg] Hodan Boyce CMA [facility] [employer] 4 12:17:00 Date Recorded Heart rate Respiratory rate Provider Jannie nahid and Address Organization Details Last Updated DateTime 06/12/2023 83 /min 14 /min Fran Warner MD [address] [place] [address], [address], [place] [employer] [facility] [employer] 06/12/2023 13:04:48 Date Recorded Body height Body mass index (BMI) Body weight Body temperature Heart rate Systolic blood pressure Diastolic blood pressure Provider Name and Address Organization Details Last Updated DateTime 4 165.1 cm 34.9 kg/m2 45455.4 g 97.6 [degF] 78 /min 128 mm[Hg] 74 mm[Hg] RAMÓN Hsieh [facility] [employer] [facility] 4 15:37:30 Date Recorded Body height Body mass index (BMI) Body weight Body temperature Heart rate Systolic blood pressure Diastolic blood pressure Provider Name and Address Organization Details Last Updated DateTime 4 165.1 cm 35.8 kg/m2 48823.3 6 g 97.5 [degF] 78 /min 114 mm[Hg] 60 mm[Hg] RAMÓN Hsieh [facility] [employer] 4 10:41:05 Date Recorded Pain severity - 0-10 verbal numeric rating [Score] - Reported Provider Name and Address Organization Details Last Updated DateTime 08/18/2023 4 Puneet King LPN [facility] [employer] [facility] 08/18/2023 11:52:49 Date Recorded Body height Body mass index (BMI) Body weight Body temperature Heart rate Respiratory rate Oxygen saturation Oxygen saturation in Arterial blood by Pulse oximetry Pain severity - 0-10 verbal numeric rating [Score] - Reported Systolic blood pressure Diastolic blood pressure Provider Name and Address Organization Details Last Updated DateTime 4 165.1 cm 36.5 kg/m2 05592.5 3 g 97.5 [degF] 94 /min 18 /min 96 % 96 % 0 152 mm[Hg] 80 mm[Hg] Puneet King LPN [facility] [employer] [facility] 4 14:44:09 Date Recorded Body height Body mass index (BMI) Body weight Body temperature Heart rate Systolic blood pressure Diastolic blood pressure Provider Name and Address Organization Details Last Updated DateTime 4 165.1 cm 36.8 kg/m2 959353. 91 g 97.6 [degF] 84 /min 118 mm[Hg] 66 mm[Hg] RAMÓN Hsieh [place] [facility] [employer] [facility] 4 11:08:27 Social History Question Answer Notes LastModified by Organization Details LastModified Time Tobacco Smoking Status Former Smoker Not Available [facility] 04/10/2022 03:13:55 Do You Have An Advance Directive? Yes Asked To Bring Copy For Chart MIGRATION.0301 [id number] Information not available 04/10/2022 What Is Your Level Of Alcohol Consumption? None MIGRATION.030 325362 Information not available 04/10/2022 Do You Wear A Helmet When Biking? No Does Not Bike MIGRATION.030 433809 Information not available 04/10/2022 Are You Blind Or Do You Have Difficulty Seeing? No MIGRATION.0301 797162 Information not available 04/10/2022 Is Blood Transfusion Acceptable In An Emergency? Yes [email or web address] Information not available 08/18/2023 What Is Your Level Of Caffeine Consumption? Occasional MIGRATION.0301 [id number] Information not available 04/10/2022 How Much Tobacco Do You Chew? None MIGRATION.0301 140669 Information not available 04/10/2022 In The 14 Days Before Symptom Onset, Have You Had Close Contact With A Laboratory-confi rmed COVID-19 While That Case Was Ill? No MIGRATION.0301 942479 Information not available 04/10/2022 In The 14 Days Before Symptom Onset, Have You Had Close Contact With A Person Who Is Under Investigation For COVID-19 While That Person Was Ill? No MIGRATION.0301 491003 Information not available 04/10/2022 Are You Currently Employed? No Information not available 03/13/2023 Are You Deaf Or Do You Have Serious Difficulty Hearing? No MIGRATION.0301 462862 Information not available 04/10/2022 What Type Of Diet Are You Following? REGULAR MIGRATION.0301 870564 Information not available 04/10/2022 Which Illicit Or Recreational Drugs Have You Used? None MIGRATION.030 321845 Information not available 04/10/2022 Do You Or Have You Ever Used E-cigarettes Or Vape? Never Used Electronic Cigarettes MIGRATION.030 897966 Information not available 04/10/2022 What Is The Highest Grade Or Level Of School You Have Completed Or The Highest Degree You Have Received? [id number] MIGRATION.030 878934 Information not available 04/10/2022 Do You Have An Electrostatic Air Filter? No Information not available 03/13/2023 What Is Your Occupation? Retired MIGRATION.030 410944 Information not available 04/10/2022 How Many Days Of Moderate To Strenuous Exercise, Like A Brisk Walk, Did You Do In The Last 7 Days? 0 [email or web address] Information not available 08/18/2023 Have There Been Any Changes To Your Family Or Social Situation? No [email or web address] Information not available 08/18/2023 What Is The Fluoride Status Of Your Home? Fluoridated MIGRATION.030 159052 Information not available 04/10/2022 When Did You Quit Smoking? 14+yearssincelastci julien MIGRATION.030 816455 Information not available 04/10/2022 Are There Any Guns Present In Your Home? Yes MIGRATION.0301 891844 Information not available 04/10/2022 Do You Have A Humidifier? No Information not available 03/13/2023 Do You Use Insect Repellent Routinely? No MIGRATION.0301 690050 Information not available 04/10/2022 Where Do You Live? SingleLevelHouse MIGRATION.0301 338542 Information not available 04/10/2022 Presence Of Domestic Violence No [email or web address] Information not available 08/18/2023 Guns Present In The Home? Yes [email or web address] Information not available 08/18/2023 Are You Able To Care For Yourself? Yes Information not available 08/18/2023 Are You Blind Or Do Yo Have Difficulty Seeing? No [email or web address] Information not available 08/18/2023 Are You Deaf Or Do You Have Serious Difficulty Hearing? No [email or web address] Information not available 08/18/2023 General Stress Level? Moderate [email or web address] Information not available 08/18/2023 Live Alone Of With Others? With Others [email or web address] Information not available 08/18/2023 Do You Have A Medical Power Of Ladies' Locker Room Attendant? Yes MIGRATION.0301 179513 Information not available 04/10/2022 Do You Have Moisture Problems In Your Home? No Information not available 03/13/2023 What Was The Date Of Your Most Recent Tobacco Screening? 12/29/2023 [email or web address] Information not available 12/29/2023 Do You Have Any Pets? No MIGRATION.0301 913338 Information not available 04/10/2022 What Is Your Relationship Status? MIGRATION.0301 740236 Information not available 04/10/2022 Do You Use Your Seat Belt Or Car Seat Routinely? Yes MIGRATION.0301 779885 Information not available 04/10/2022 Do You Have Smoke And Carbon Monoxide Detectors In Your Home? Yes MIGRATION.0301 361891 Information not available 04/10/2022 Are You Passively Exposed To Smoke? No MIGRATION.0301 521645 Information not available 04/10/2022 Do You Or Have You Ever Used Smokeless Tobacco? Never Used Smokeless Tobacco MIGRATION.0301 507213 Information not available 04/10/2022 Are There Any Smokers In Your House? No MIGRATION.0301 099710 Information not available 04/10/2022 How Much Tobacco Do You Smoke? No MIGRATION.0301 530902 Information not available 04/10/2022 What Types Of Sporting Activities Do You Participate In? None MIGRATION.0301 768955 Information not available 04/10/2022 Do You Feel Stressed (tense, Restless, Nervous, Or Anxious, Or Unable To Sleep At Night)? [id number] [email or web address] Information not available 08/18/2023 Do You Use Any Illicit Or Recreational Drugs? No MIGRATION.0301 137248 Information not available 04/10/2022 Do You Use Sunscreen Routinely? No MIGRATION.0301 606743 Information not available 04/10/2022 Has Tobacco Cessation Counseling Been Provided? No MIGRATION.0301 186563 Information not available 04/10/2022 How Many Years Have You Smoked Tobacco? -1 Information not available 08/18/2023 Have You Recently Traveled Abroad? No MIGRATION.0301 939302 Information not available 04/10/2022 Do You Have Any Dietary Restrictions? No MIGRATION.0301 056352 Information not available 04/10/2022 Do You Or Have You Ever Used Any Other Forms Of Tobacco Or Nicotine? No MIGRATION.0301 218478 Information not available 04/10/2022 Sex: Female Functional Status Question Answer Note LastModified by Organizat [employer] Details LastModified Time Do you have difficulty walking or climbing stairs? No MIGRATION.7547291 026 Information not available 04/10/2022 Do you have transportation difficulties? No MIGRATION.9974844 026 Information not available 04/10/2022 Are you able to walk? YESWOREST MIGRATION.9399563 026 Information not available 04/10/2022 Do you have difficulty doing errands alone? No MIGRATION.4087427 026 Information not available 04/10/2022 Are you able to care for yourself? Yes MIGRATION.0350636 026 Information not available 04/10/2022 Do you have difficulty dressing or bathing? No MIGRATION.8510912 026 Information not available 04/10/2022 What is your exercise level? None MIGRATION.4097034 026 Information not available 04/10/2022 Mental Status Question Answer Note LastModified by Organizat ion Details LastModified Time Do you have difficulty concentrating, remembering or making decisions? No MIGRATION.[id number] 6 Information not available 04/10/2022 Family History Relationship Description Onset Age of this Age Resolved Age Notes LastModified by Organization Details LastModified Time Father Diabetes mellitus MIGRATION.594 [id number] Not available 04/10/2022 03:14:45 Father Family history of stroke [email or web address] Not available 2022 10:29:30 Father Heart disease [email or web address] Not available 2023 12:48:45 Father Hypertensive disorder [email or web address] Not available 2023 12:48:54 Father Deep venous thrombosis [email or web address] Not available 03/13 12:49:36 Maternal Grandmother Malignant tumor of breast [email or web address] Not available 2022 10:29:30 Mother Family history of stroke [email or web address] Not available 2022 10:29:30 Mother Hypertensive disorder [email or web address] Not available 2023 12:48:59 Mother Deep venous thrombosis [email or web address] Not available 03/13 12:49:31 Medical History Condition Response NERVE DISEASE Y BLINDNESS N RHEUMATIC FEVER N KIDNEY STONES N BLADDER PROBLEMS N MRSA N OTHER # 1 N POLIO N LUNG DISEASE/DISORDER N COPD N RADIATION / CHEMOTHERAPY N Other # 2 N BLOOD DISEASES N EAR OR HEARING PROBLEMS N MUMPS N DEPRESSION (INCLUDING POST ) Y BOWEL PROBLEMS N STROKE/TIA N THYROID DISEASE Y ULCERS N BENIGN PROSTATIC HYPERPLASIA N MEASLES N MYOCARDIAL INFARCTION N OBESITY Y GERD/NAUSEA Y ANEURYSM N URINARY/BLADDER/KIDNEY PROBLEMS Y CORONARY ARTERY DISEASE (CAD) N ADDICTION CONCERNS N Impotence N ENDOMETRIOSIS N USE OF BLOOD THINNERS Y SKIN PROBLEMS N GASTROINTESTINAL DISORDER N PERIPHERAL VASCULAR DISEASE N MUSCLE,JOINT OR BONE PROBLEMS N GASTROINTESTINAL BLEEDING N BLOOD CLOTS Y ASTHMA Y CATARACTS N ERECTILE DYSFUNCTION N VARICOSITIES N GI PROBLEMS N Low Testosterone N INFERTILITY N AIDS/HIV N CHEMOTHERAPY / RADIATION N LIVER DISEASE N MALE HYPOGONADISM N HYPERTENSION Y Deficiency Y TOURETTE'S N ANXIETY DISORDER Y BLOOD TRANSFUSION N ANEMIA/BLOOD DISORDER N CHRONIC EAR INFECTIONS N BRONCHITIS Y TUBERCULOSIS N GLAUCOMA N FOOT PROBLEM N DIVERTICULITIS N SLEEP APNEA Y CHICKENPOX N ALLERGIES/HAYFEVER Y INFECTIOUS DISEASE N PROSTATE N HEART ARRHYTHMIA N INSOMNIA N HIGH CHOLESTEROL / HYPERLIPIDEMIA Y EYE PROBLEMS N HYPERTHYROIDISM N EDEMA N CHRONIC PAIN SYNDROME N HYPOTHYROIDISM Y CAROTID BLOCKAGE N CONSTIPATION N BACK / NECK PROBLEMS Y ATHEROSCLEROSIS N BREAST PROBLEMS N DIALYSIS N ECZEMA N OSTEOPOROSIS N ARTHRITIS Y RESPIRATORY PROBLEMS Y APPENDICITIS N DIABETES, TYPE Y BAD TEETH N ENT N HEARTBURN / REFLUX N AUTISM SPECTRUM DISORDER (ASD) N HEPATITIS / LIVER DISEASE Y GOUT N SLEEP DISORDER N ALZHEIMER'S DISEASE N Brain Problems N DEMENTIA N HERPES N SEIZURES/EPILEPSY N HEADACHES/MIGRAINES N VASCULAR DISEASE N PACEMAKER N Blood Disorder N DIZZINESS N HEART DISEASE/HEART PROBLEMS Y KIDNEY DISEASE N MULTIPLE SCLEROSIS N CANCER: SPECIFY N CARDIAC ARRHYTHMIA N ATRIAL FIBRILLATION N Gall Stones N PULMONARY EMBOLISM N AUTOIMMUNE DISEASE N Gynecological History Statement/Question Response Menses Monthly N Abnormal Pap N Date of Last Mammogram 02/14/2020 Date of Last Colonoscopy 08/04/2019 Most Recent Bone Density 02/14/2020 Sexually Active? N Obstetrics History GPAL:G 5 P 3 0 2 3 Type Value Full Term 3 Spontaneous 2 Living 3 Total 5 Immunizations Vaccine Type Date Status Note Provider Nam e and Address Organization Details Recorded Time Influenza, high-dose, quadrivalent, PF 0 completed Kristi Flower RMA null, [facility] 08/13/2023 11:55:32 COVID-19, mRNA, LNP-S, PF, 30 mcg/0.3 mL dose 2 completed Kristi Flower RMA null, [facility] 08/13/2023 11:55:32 COVID-19, mRNA, LNP-S, PF, 30 mcg/0.3 mL dose 1 completed Kristi Flower RMA null, [facility] 08/13/2023 11:55:32 COVID-19, mRNA, LNP-S, PF, 30 mcg/0.3 mL dose 1 completed Kristi Flower RMA null, [facility] 08/13/2023 11:55:32 COVID-19, mRNA, LNP-S, PF, 30 mcg/0.3 mL dose, mj-sucrose 2 completed Kristi Flower RMA null, [facility] 08/13/2023 11:55:32 Influenza, high-dose, trivalent, PF 5 completed Kristi Flower RMA null, [facility] 08/13/2023 11:55:32 Influenza, high-dose, trivalent, PF 7 completed Krisit Flower RMA null, [facility] 08/13/2023 11:55:32 Influenza, high-dose, trivalent, PF 6 completed Kristi Flower RMA null, [facility] 08/13/2023 11:55:33 SARS-COV-2 (COVID-19) vaccine, UNSPECIFIED 1 completed Kristi Flower, RMA null, [facility] 08/13/2023 11:55:32 SARS-COV-2 (COVID-19) vaccine, UNSPECIFIED 1 completed Kristi [place], RMA null, [facility] 08/13/2023 11:55:32 Influenza, high-dose, trivalent, PF 9 completed Kristi [place], RMA null, [facility] 08/13/2023 11:55:33 Influenza, high-dose, trivalent, PF 7 completed Kristi [place], RMA null, [facility] 08/13/2023 11:55:32 Influenza, high-dose, trivalent, PF 6 completed Kristi Mundo, RMA null, [facility] 08/13/2023 11:55:33 Influenza, high-dose, trivalent, PF 5 completed Kristi [place], RMA null, [facility] 08/13/2023 11:55:32 Tdap 0 completed Kristi [place], RMA null, [facility] 08/13/2023 11:55:32 Influenza, high-dose, trivalent, PF 0 completed Kristi [place], RMA null, [facility] 08/13/2023 11:55:33 Influenza, high-dose, trivalent, PF 4 completed Kristi [place]undo, RMA null, [facility] 08/13/2023 11:55:32 Influenza, high-dose, trivalent, PF 3 completed Kristi [place], RMA null, [facility] 08/13/2023 11:55:32 Influenza, high-dose, quadrivalent, PF 2 completed Not Available [facility] 07/29/2022 09:34:24 Influenza, high-dose, quadrivalent, PF 1 completed Not Available [facility] 07/29/2022 09:34:24 pneumococcal polysaccharide PPV23 9 completed Not Available [facility] 07/29/2022 09:34:24 Influenza, high-dose, trivalent, PF 8 completed Not Available [facility] 07/29/2022 09:34:24 Pneumococcal conjugate PCV 13 8 completed Not Available [facility] 07/29/2022 09:34:24 Influenza, high-dose, quadrivalent, PF 3 completed Aditya Joyce MD [address], [facility] [address], [place], [address], [facility] [employer] 12/02/2022 17:56:33 Past Encounters Encounter ID Performer Location Encounter Start Date Encounter Closed Date Diagnosis/Indication Diagnosis SNOMED-CT Code Diagnosis ICD10 Code Diagnosis Note [id number] [facility] [place] [address] [place] [address] 06/19/2020 00:00:00 06/19/2020 14:22:26 [id number] [facility] [place] [address] [place] [address] 06/21/2020 00:00:00 06/21/2020 13:25:17 [id number] [facility] [place] [address] [place] [address] 08/01/2020 00:00:00 08/01/2020 12:57:26 [id number] [facility] [place] [address] [place] [address] 08/29/2020 00:00:00 08/29/2020 16:03:30 [id number] [facility] [place] [address] [place] [address] 10/23/2020 00:00:00 10/23/2020 14:29:56 [id number] [facility] [place] [address] [place] [address] 11/02/2020 00:00:00 11/02/2020 17:24:59 [id number] [facility] [place] [address] [place] [address] 04/02/2021 00:00:00 04/02/2021 11:59:31 [id number] [facility] [place] [address] [place] [address] 05/22/2021 00:00:00 05/22/2021 15:53:36 [id number] [facility] [place] [address] [place] [address] 06/19/2021 00:00:00 06/19/2021 15:10:11 [id number] [facility] [place] [address] [facility] [address] , [place] [address] 07/25/2021 00:00:00 07/25/2021 16:57:22 [id number] [facility] [place] [address] [place] [address] 08/21/2021 00:00:00 08/21/2021 14:35:56 [id number] [facility] [place] [address] [place] [address] 09/17/2021 00:00:00 09/17/2021 10:29:45 [id number] [facility] [place] [address] [place] [address] 11/01/2021 00:00:00 11/04/2021 16:36:10 [id number] [facility] [place] [address] [place] [address] 11/26/2021 00:00:00 11/26/2021 12:56:05 [id number] [facility] [place] [address] [place] [address] 12/05/2021 00:00:00 12/05/2021 12:08:16 [id number] [facility] Internal [facility] [place] [address] [facility] [place] [address] 03/27/2022 00:00:00 03/27/2022 17:14:53 [id number] Aditya lancaster MD [facility] Internal [facility] [place] [address] [facility] [address] 07/29/2022 11:49:50 07/29/2022 12:58:47 Type 2 diabetes mellitus without complication [id number] E11.9 On metformin ER 500mg bidOn ozempic, does well denies any MCT, MEN2 or pancreatic issuesGet labs Does well Needs to see her eye Does see Dr Long on 11/02/2020 Screening - NAD [id number] 3 Z13.9 C-scope: 02/22/2014 : Dr Da Silva Mammogram: 01/13/17: Neg, 01/14/18: Neg 9: Neg 021: Neg 022: Neg 023: BiRads 3: Neg DEXA: 02/14/2020 : Osteopenia , on OTC ca and vit d PAP: Not doing doing these, no problems UTD on flu shotUTD pneumovax #13 03/17/17, #23 05/19/18UT D on shingles vaccine, 4 years agoUTD on tdap 12/06/2019 UTD on COVID 19 vaccine RTC in 4 monthsDo labsER if worseshe did verbalize his understand ing of the above Hyperlipidemia 35545579 E78.5 On rosuvastat in 20mg daily Get labs Hypothyroidism 05856792 E03.9 On levothyrox ine 200mcgs dailyDoes wellRepeat the labs Restless legs 88523619 G 25.81 Not on requip now On tizanidine 4mg dailyDoes well Gastroesop hageal reflux disease without esophagitis 822023234 K21.9 S/p EGDOn nexium, take as needed only Does well Sinus tachycardia 816934 01 R00.0 s/p Stress test 08/24/2020 : NegS/p ECHO 08/24/2020 On metoprolol ER 25mg dailyOn lisinopril 10mg dailyDoes well Sees [facility] Dr Auguste last OV 09/19/2021 Thrombocyt openic disorder 918951855 D69.[address] Heart Last OV 03/13/2021 , f/u yearly Obstructiv e sleep apnea syndrome 28995196 G47.33 S/p sleep study 12/28/17Is using the CPAP and is very compliant 04/13/2019 : CT Chest: Deysi Butler, no acute intrathora cic process, thyrodi calcificat ions, F/u USOld granulomat os disease Keep apt with [place] He COMMUNICATIONS OFFICER 08/21/2021 Environmental allergy 42 6854818 T78.49XD On proairOn singulair Does well Forgetful 98626576 R41.3 Get labsS/p MRI brain 06/26/2020 May need to see neurology Pain of bi lateral knee joints 2363443089 37897 M25.561 M25.562 S/p jeff TKRsDr Richard 09/17/2021 Cirrhosis of liver 67733 007 K74.60 US Liver 06/26/2020 US liver 07/26/2021 : Nodular margins, cirrhosisG et an apt with GI hepatology Dr Roberts also, has seen Anastasia Francisco in 01/2021 liver 03/13/2022 , see case Moderate r ecurrent major depression 00829692 F33.1 On venlafaxin e ER 75mgs dailyDoes wellNot suicidal or homicidalD eclines any referral to psychiatry Can renew when needed Essential hypertension 81543235 I10 On lisinopril 5mg will cut this in half 07/29/2022 , as she feels the BP is low, bring BP logs in 2 weeksOn metoprolol ER 25mg daily, may need to adjust this [id number] [place] eH, [facility] [place] [address] [place] [address] 09/11/2022 12:18:43 09/11/2022 14:57:32 Obstructive sleep apnea syndrome 59968436 G47.33 Split night study 12/28/17 with AHI 73.2Machin e set up 01/13/18.D ownload today with 87% total compliance Remains on CPAP 10 cm H2OAHI is 0.9ONO on CPAP and RA WNL (2019)She has good use and clinical benefit.OS A is well correctedE ncouraged 100% compliance with all sleepFollo w with PCM for labsAdvise d good sleep habits and patterns:- Set a goal for at least 7 to 8 hours of sleep time per day.-Use the bed mainly for sleep and to go to bed only when tired. If unable to fall asleep after 30 minutes, patient should get out of bed but should not engage in any activity that requires sustained mental alertness. -Maintain a regular bedtime and wake-up time even on weekends or days off of work.-Avoi d excessive naps during the daytime. If a nap is necessary, limit it to no more than 30 minutes.-M inimize environmen shayy noise, bright lights, and extremes in bedroom temperatur e.-Avoid alcohol, caffeinate d beverages, and nicotine products for at least 6 hours prior to bedtime.-A void strenuous exercise and large meals for at least 4 hours prior to bedtime. [id number] ANTWAN Beckham [facility] [place] [address] [place] [address] 09/17/2022 14:48:10 09/17/2022 15:42:57 Pain of bilateral knee joints 1270500018 36177 M25.561 M25.562 History of bilateral total knee replacement 2805850121 838169 Z96.653 [id number] Dima Ramos MD [facility] [place] [address] [place] [address] 10/01/2022 14:48:35 10/01/2022 15:20:37 Pain of right shoulder joint 8501180005 2762201 M25.511 Osteoarthr 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 7224244431 57270 M19.932 [id number] Jewel loera MD [facility] General Surgery [address] [facility], [facility] [address] [place] [address] 11/05/2022 10:25:40 11/05/2022 11:59:15 [facility] [id number] R59.1 [id number] Aditya lancaster MD [facility] Internal [facility] [place] [address] [facility] [address] 12/02/2022 11:55:51 12/02/2022 12:52:29 Screening - NAD 390123271 Z13.9 C-scope: 02/22/2014 : Dr Da Silva Mammogram: 01/13/17: Neg, 01/14/18: Neg 9: Neg 021: Neg 022: Neg 023: BiRads 3: Neg DEXA: 02/14/2020 : Osteopenia , on OTC ca and vit d PAP: Not doing doing these, no problems UTD on flu shotUTD pneumovax #13 03/17/17, #23 05/19/18UT D on shingles vaccine, 4 years agoUTD on tdap 12/06/2019 UTD on COVID 19 vaccineCan do RSV vaccine and new COVID 19 vaccine RTC in 4 monthsDo labsER if worseshe did verbalize his understand ing of the above Type 2 ofe betes mellitus without complication 354107933 E11.9 On metformin ER 500mg bidOn ozempic, does well denies any MCT, MEN2 or pancreatic issuesGet labs Does well Needs to see her eye MD Does see Dr Long on 11/02/2020 Hyperlipidemia 08559627 E78.5 On rosuvastat in 20mg daily Get labs Hypothyroidism 01998023 E03.9 On levothyrox ine 200mcgs daily,will decrease to 150mcgs dailyDoes wellRepeat the labs Restless legs 44350786 G 25.81 Not on requip now On tizanidine 4mg dailyDoes well Gastroesop hageal reflux disease without esophagitis 026350645 K21.9 S/p EGDOn nexium, take as needed only Does well Sinus tachycardia 295149 01 R00.0 s/p Stress test 08/24/2020 : NegS/p ECHO 08/24/2020 On metoprolol ER 25mg dailyOn lisinopril 5mg dailyDoes well Sees [facility] Dr Auguste last OV 09/19/2021 Thrombocyt openic disorder 394354546 D69.[address] Heart Last OV 03/13/2021 , f/u yearlyLast OV 03/19/2022 , f/u yearly Obstructiv e sleep apnea syndrome 05575435 G47.33 S/p sleep study 12/28/17Is using the CPAP and is very compliant 04/13/2019 : CT Chest: Deysi Butler, no acute intrathora cic process, thyrodi calcificat ions, F/u USOld granulomat os disease Keep apt with [place] He COMMUNICATIONS OFFICER 08/21/2021 [place] He COMMUNICATIONS OFFICER 09/11/2022 , next 04/22/2023 Environmental allergy 42 2844740 T78.49XD On proairOn singulair Does well Forgetful 30789340 R41.3 Get labs S/p MRI brain 06/26/2020 May need to see neurology Pain of bi lateral knee joints 1418570963 97331 M25.561 M25.562 S/p jeff TKRs Dr Ramos 09/17/2021 Cirrhosis of liver 95188 007 K74.60 US Liver 06/26/2020 US liver 07/26/2021 : Nodular margins, cirrhosisG et an apt with GI hepatology Dr Roberts also, has seen Anastasia Francisco in 01/2021 US liver 03/13/2022 , see case Moderate r ecurrent major depression 43597074 F33.1 On venlafaxin e ER 75mgs dailyDoes wellNot suicidal or homicidalD eclines any referral to psychiatry Can renew when needed Essential hypertension 60311985 I10 On lisinopril 5mgOn metoprolol ER 25mg daily, may need to adjust this COVID-19 632170479 U07.1 +ve 10/29/2022 , see case 10/29/2022 Pain of ri ght shoulder joint 4822610528 1723035 M25.511 Dr Ramos 10/01/2022 , s/p kenalog Chronic ki dney disease 906905617 N18.[address] Banks IJ Chronic neck pain 739226 5538 107 M54.2 Get Xray C-spineIf not better, get PT and may need to see IPC Administra tion of influenza vaccine 37149092 Z23 [id number] Fran Warner MD [facility] [place] [address] [place] [address], [facility] [address] [place] [address] 03/13/2023 11:59:32 03/14/2023 15:38:10 Obstructive sleep apnea syndrome 38678972 G47.33 [id number] Aditya lancaster MD [facility] Internal Med [facility] [address] [facility] [address] , [facility] [place] [address] 03/31/2023 11:47:38 03/31/2023 12:49:59 Screening - NAD [id number] Z13.9 C-scope: 02/22/2014 : Dr Da Silva Mammogram: 01/13/17: Neg, 01/14/18: Neg 9: Neg 021: Neg 022: Neg 023: BiRads 3: Neg 024: Neg DEXA: 02/14/2020 : Osteopenia , on OTC ca and vit dDEXA: 04/22/2022 : Osteopenia on OTC ca and vit d PAP: Not doing doing these, no problems UTD on flu shotUTD pneumovax #13 03/17/17, #23 05/19/18UT D on shingles vaccine, 4 years agoUTD on tdap 12/06/2019 UTD on COVID 19 vaccineCan do RSV vaccine and new COVID 19 vaccine RTC in 4 monthsDo labsER if worseshe did verbalize his understand ing of the above Type 2 ofe betes mellitus without complication 146833054 E11.9 On metformin ER 500mg bidOn ozempic, does well denies any MCT, MEN2 or pancreatic issuesGet labs Does well Needs to see her eye Does see Dr Long on 11/02/2020 Hyperlipidemia 15546999 E78.5 On rosuvastat in 20mg daily Get labs Hypothyroidism 36308164 E03.9 On levothyrox ine 100mcgs dailyDoes wellRepeat the labsGet US thyroid Restless legs 66183327 G 25.81 Not on requip now On tizanidine 4mg dailyDoes well Gastroesop hageal reflux disease without esophagitis 998349249 K21.9 S/p EGDOn nexium, take as needed only Does well Sinus tachycardia 138175 01 R00.0 s/p Stress test 08/24/2020 : NegS/p ECHO 08/24/2020 On metoprolol ER 25mg dailyOn lisinopril 5mg dailyDoes well Sees [facility] Dr Auguste last OV 09/19/2021 Thrombocyt openic disorder 250340754 D69.[address] Heart Last OV 03/13/2021 , f/u yearlyLast OV 03/19/2022 , f/u yearly Obstructiv e sleep apnea syndrome 02595833 G47.33 S/p sleep study 12/28/17Is using the CPAP and is very compliant 04/13/2019 : CT Chest: Deysi Butler, no acute intrathora cic process, thyrodi calcificat ions, F/u USOld granulomat os disease Keep apt with [employer] He [employer]ICATION[employer] OFFICER 08/21/2021 [employer]ICATION[employer] OFF[employer]ER 09/11/2022 , next 04/22/2023 Environmental allergy 42 9429314 T78.49XD On proairOn singulair Does well Forgetful 82221638 R41.3 Get labs S/p MRI brain 06/26/2020 May need to see neurology Pain of bi lateral knee joints 8164044662 90327 M25.561 M25.562 S/p jeff TKRs Dr Ramos 09/17/2021 Cirrhosis of liver 66445 007 K74.60 US Liver 06/26/2020 US liver 07/26/2021 : Nodular margins, cirrhosisG et an apt with GI hepatology Dr Roberts also, has seen Anastasia Francisco in 01/2021 Anastasia Francisco COMMUNICATIONS OFFICER 02/13/2023 , f/u in 6 monthsUS liver 03/13/2022 , see case Moderate r ecurrent major depression 39274204 F33.1 On venlafaxin e ER 75mgs dailyDoes wellNot suicidal or homicidalD eclines any referral to psychiatry Can renew when needed Essential hypertension 91598501 I10 On lisinopril 5mgOn metoprolol ER 25mg daily, may need to adjust this COVID-19 702818255 U07.1 +ve 10/29/2022 , see case 10/29/2022 Pain of ri ght shoulder joint 7224856537 4078697 M25.511 Dr Ramos 10/01/2022 , s/p kenalog Chronic ki dney disease 581195365 N18.[address] Banks IJ Chronic neck pain 498100 9085 107 M54.2 Get Xray C-spineIf not better, get PT and may need to see IPC Xray C-spine 12/02/2022 Screening for malignant neoplasm of colon 679097336 Z12.11 Pruritic rash 63384777 L 28.2 In the groin area, red and itchy, not examined today, no rash at present, would like a refill of nystatin-t riamcinolo ne [id number] Fran Warner MD [facility] [place] [id number] 0 06/12/2023 12:02:56 06/13/2023 09:12:13 Obstructive sleep apnea syndrome 13730961 G47.33 [id number] Aditya lancaster MD [facility] [place] [id number] 1 06/25/2023 15:20:32 06/25/2023 16:19:01 Screening - NAD 406121136 Z13.9 C-scope: 02/22/2014 : Dr Da Silva Mammogram: 01/13/17: Neg, 01/14/18: Neg 9: Neg 021: Neg 022: Neg 023: BiRads 3: Neg 024: Neg DEXA: 02/14/2020 : Osteopenia , on OTC ca and vit dDEXA: 04/22/2022 : Osteopenia on OTC ca and vit d PAP: Not doing doing these, no problems UTD on flu shotUTD pneumovax #13 03/17/17, #23 05/19/18UT D on shingles vaccine, 4 years agoUTD on tdap 12/06/2019 UTD on COVID 19 vaccineCan do RSV vaccine and new COVID 19 vaccine RTC in 4 monthsDo labsER if worseshe did verbalize his understand ing of the above Type 2 ofe betes mellitus without complication 046649730 E11.9 On metformin ER 500mg bidOn ozempic, does well denies any MCT, MEN2 or pancreatic issuesGet labs Does well Needs to see her eye MD Does see Dr Long on 11/02/2020 Hyperlipidemia 18240480 E78.5 On rosuvastat in 20mg daily Get labs Hypothyroidism 51360381 E03.9 On levothyrox ine 100mcgs dailyDoes wellRepeat the labsGet US thyroid Restless legs 57899037 G 25.81 Not on requip now On tizanidine 4mg dailyDoes well Gastroesop hageal reflux disease without esophagitis 486451783 K21.9 S/p EGDOn nexium, take as needed only Does well Sinus tachycardia 268893 01 R00.0 s/p Stress test 08/24/2020 : NegS/p ECHO 08/24/2020 On metoprolol ER 25mg dailyOn lisinopril 5mg dailyDoes well Sees [facility] Dr Auguste last OV 09/19/2021 Thrombocyt openic disorder 614169158 D69.[address] Heart Last OV 03/13/2021 , f/u yearlyLast OV 03/19/2022 , f/u yearly Obstructiv e sleep apnea syndrome 52974926 G47.33 S/p sleep study 12/28/17Is using the CPAP and is very compliant 04/13/2019 : CT Chest: Deysi Butler, no acute intrathora cic process, thyrodi calcificat ions, F/u USOld granulomat os disease Keep apt with [employer] He [employer]ICATIONS OFFICER 08/21/2021 [employer] He COMM[employer]ICATIONS OFFICER 09/11/2022 , next 04/22/2023 Environmental allergy 42 8697386 T78.49XD On proairOn singulair Does well Forgetful 64657133 R41.3 Get labs S/p MRI brain 06/26/2020 May need to see neurology Pain of bi lateral knee joints 3195777799 38042 M25.561 M25.562 S/p jeff TKRs Dr Ramos 09/17/2021 Cirrhosis of liver 00280 007 K74.60 US Liver 06/26/2020 US liver 07/26/2021 : Nodular margins, cirrhosisG et an apt with GI hepatology Dr Roberts also, has seen Anastasia Francisco in 01/2021 Anastasia Francisco COMMUNICATIONS OFFICER 02/13/2023 , f/u in 6 monthsUS liver 03/13/2022 , see case Moderate r ecurrent major depression 11828621 F33.1 On venlafaxin e ER 75mgs dailyDoes wellNot suicidal or homicidalD eclines any referral to psychiatry Can renew when needed Essential hypertension 14591923 I10 On lisinopril 5mgOn metoprolol ER 25mg daily, may need to adjust this COVID-19 784934724 U07.1 +ve 10/29/2022 , see case 10/29/2022 Pain of ri ght shoulder joint 1232653091 7475627 M25.511 Dr Ramos 10/01/2022 , s/p kenalog Chronic ki dney disease 826006303 N18.[address] Banks IJ Chronic neck pain 363544 4197 107 M54.2 Get Xray C-spineIf not better, get PT and may need to see IPC Xray C-spine 12/02/2022 Screening for malignant neoplasm of colon 892711784 Z12.11 Pruritic rash 57237077 L 28.2 In the groin area, red and itchy, not examined today, no rash at present, would like a refill of nystatin-t riamcinolo ne Low back pain 391963145 M54.50 Xrays noted 06/24/2023 Already on the diclofenac given by Kobe Madrigal on flexerillN eeds another apt with ortho Osteoarthr itis of bilateral hip joints 8846261016 41985 M16.0 Has seen Kobe Madrigal another referral [id number] Aditya lancaster MD [facility] [place] [address] [place] [address] 08/18/2023 10:28:33 08/18/2023 11:26:37 Adult health examination 240405961 Z00.00 Screening for disorder 069291753 Z13.9 Screening - NAD 09122128 3 Z13.9 C-scope: 02/22/2014 : Dr Da SilvaC-sco pe: 07/15/2019 : Dr Da Silva Mammogram: 01/13/17: Neg, 01/14/18: Neg 9: Neg 021: Neg 022: Neg 023: BiRads 3: Neg 024: Neg DEXA: 02/14/2020 : Osteopenia , on OTC ca and vit dDEXA: 04/22/2022 : Osteopenia on OTC ca and vit d PAP: Not doing doing these, no problems UTD on flu shotUTD pneumovax #13 03/17/17, #23 05/19/18UT D on shingles vaccine, 4 years agoUTD on tdap 12/06/2019 UTD on COVID 19 vaccineCan do RSV vaccine and new COVID 19 vaccine RTC in 4 monthsDo labsER if worseshe did verbalize his understand ing of the above Type 2 ofe betes mellitus without complication 307674338 E11.9 Not taking metformin ER 500mg bidOn ozempic, does well denies any MCT, MEN2 or pancreatic issuesGet labs Does wellNeeds to see her eye MD Does see Dr Long on 11/02/2020 Does not want heraclio Mast ill refer toDr Angeles Hyperlipidemia 94114740 E78.5 On rosuvastat in 20mg dailyGet labs Hypothyroidism 66595596 E03.9 On levothyrox ine 100mcgs dailyDoes wellRepeat the labsGet US thyroid Restless legs 70565593 G 25.81 Not on requip now On tizanidine 4mg dailyDoes well Gastroesop hageal reflux disease without esophagitis 721427597 K21.9 S/p EGDOn nexium, take as needed only Does well Sinus tachycardia 390171 01 R00.0 s/p Stress test 08/24/2020 : NegS/p ECHO 08/24/2020 On metoprolol ER 25mg dailyOn lisinopril 5mg dailyDoes well Sees [facility] Dr Auguste last OV 09/19/2021 Thrombocyt openic disorder 406244963 D69.[address] Heart Last OV 03/13/2021 , f/u yearlyLast OV 03/19/2022 , f/u yearly Obstructiv e sleep apnea syndrome 45512210 G47.33 S/p sleep study 12/28/17Is using the CPAP and is very compliant 04/13/2019 : CT Chest: Deysi Butler, no acute intrathora cic process, thyrodi calcificat ions, F/u USOld granulomat os disease Keep apt with [employer]ICATION[employer] OFFICER 08/21/2021 [employer] He COMM[employer]ICATIONS OFFICER 09/11/2022 Dr Warner last 06/12/2023 , next 4 Environmental allergy 42 9606252 T78.49XD On proairOn singulair Does well Forgetful 37050409 R41.3 Get labs S/p MRI brain 06/26/2020 May need to see neurology Pain of bi lateral knee joints 6861217664 89923 M25.561 M25.562 S/p jeff TKRs Dr Ramos 09/17/2021 Cirrhosis of liver 39328 007 K74.60 US Liver 06/26/2020 US liver 07/26/2021 : Nodular margins, cirrhosisG et an apt with GI hepatology Dr Roberts also, has seen Anastasia Francisco in 01/2021 Anastasia Gandhi COMMUNICATIONS OFFICER 02/13/2023 , f/u in 6 monthsUS liver 03/13/2022 , see case Moderate r ecurrent major depression 68833219 F33.1 On venlafaxin e ER 75mgs dailyDoes wellNot suicidal or homicidalD eclines any referral to psychiatry Can renew when needed Essential hypertension 86637867 I10 On lisinopril 5mgOn metoprolol ER 25mg daily, may need to adjust this COVID-19 782363840 U07.1 +ve 10/29/2022 , see case 10/29/2022 Pain of ri ght shoulder joint 4364217742 0858412 M25.511 Dr Ramos 10/01/2022 , s/p kenalog Chronic ki dney disease 902181805 N18.[address] Banks IJ Chronic neck pain 778404 1373 107 M54.2 Get Xray C-spineIf not better, get PT and may need to see IPC Xray C-spine 12/02/2022 Screening for malignant neoplasm of colon 770727210 Z12.11 Pruritic rash 36170506 L 28.2 In the groin area, red and itchy, not examined today, no rash at present, would like a refill of nystatin-t riamcinolo ne Low back pain 420371933 M54.50 Xrays noted 06/24/2023 Already on the diclofenac given by Kobe Madrigal on flexerillN eeds another apt with ortho Osteoarthr itis of bilateral hip joints 4970095571 59773 M16.0 Has seen Kobe Madrigal another referral Screening for osteoporosis 350435515 Z13.820 Vitamin D deficiency 347 26875 E55.9 [id number] Aditya lancaster MD [facility] [place] [address] [facility] [place] [address] 11/24/2023 14:36:02 11/24/2023 15:26:53 Screening - NAD 546478908 Z13.9 C-scope: 02/22/2014 : Dr Da SilvaC-sco pe: 07/15/2019 : Dr Da Silva Mammogram: 01/13/17: Neg, 01/14/18: Neg 9: Neg 021: Neg 022: Neg 023: BiRads 3: Neg 024: Neg DEXA: 02/14/2020 : Osteopenia , on OTC ca and vit dDEXA: 04/22/2022 : Osteopenia on OTC ca and vit d PAP: Not doing doing these, no problems UTD on flu shotUTD pneumovax #13 03/17/17, #23 05/19/18UT D on shingles vaccine, 4 years agoUTD on tdap 12/06/2019 UTD on COVID 19 vaccineCan do RSV vaccine and new COVID 19 vaccine RTC in 1 monthDo labsER if worseshe did verbalize his understand ing of the above Type 2 ofe betes mellitus without complication 337305081 E11.9 Not taking metformin ER 500mg bidOn ozempic, does well denies any MCT, MEN2 or pancreatic issues, will increase that ozempic to 1mg weeklyGet labs Does wellNeeds to see her eye MD Does see Dr Long on 11/02/[address] Faustinw ill refer to Dr Angeles Hyperlipidemia 46972860 E78.5 On rosuvastat in 20mg dailyGet labs Hypothyroidism 22606290 E03.9 On levothyrox ine 100mcgs dailyDoes wellRepeat the labsGet US thyroid Restless legs 46688187 G 25.81 Not on requip now On tizanidine 4mg dailyDoes well Gastroesop hageal reflux disease without esophagitis 700842521 K21.9 S/p EGDOn nexium, take as needed only Does well Sinus tachycardia 823547 01 R00.0 s/p Stress test 08/24/2020 : NegS/p ECHO 08/24/2020 On metoprolol ER 25mg dailyOn lisinopril 5mg dailyDoes well Sees [facility] Dr Auguste last OV 09/19/2021 Thrombocyt openic disorder 245293239 D69.[address] Heart Last OV 03/13/2021 , f/u yearlyLast OV 03/19/2022 , f/u yearlyOV 04/23/2023 : F/u yearly Obstructiv e sleep apnea syndrome 12136873 G47.33 S/p sleep study 12/28/17Is using the CPAP and is very compliant 04/13/2019 : CT Chest: Deysi Butler, no acute intrathora cic process, thyrodi calcificat ions, F/u USOld granulomat os disease Keep apt with [employer] He COMM[employer]ICATIONS OFFICER 08/21/2021 [employer] He COMMUNICATIONS OFFICER 09/11/2022 Dr Warner last 06/12/2023 , next 12/25/2023 Environmental allergy 42 8059898 T78.49XD On proairOn singulair Does well Forgetful 53901828 R41.3 Get labsS/p MRI brain 06/26/2020 May need to see neurology Pain of bi lateral knee joints 2020824931 36661 M25.561 M25.562 S/p jeff TKRs Dr Ramos 09/17/2021 Cirrhosis of liver 05537 007 K74.60 US Liver 06/26/2020 US liver 07/26/2021 : Nodular margins, cirrhosisG et an apt with GI hepatology Dr Roberts also, has seen Anastasia Francisco in 01/2021 Anastasia Gandhi COMMUNICATIONS OFFICER 02/13/2023 , f/u in 6 monthsUS liver 03/13/2022 , see case Moderate r ecurrent major depression 31617659 F33.1 On venlafaxin e ER 75mgs dailyDoes wellNot suicidal or homicidalD eclines any referral to psychiatry Can renew when needed Essential hypertension 30435618 I10 On lisinopril 5mgOn metoprolol ER 25mg daily, may need to adjust this COVID-19 025350386 U07.1 +ve 10/29/2022 , see case 10/29/2022 Pain of ri ght shoulder joint 9353600804 3731630 M25.511 Dr Ramos 10/01/2022 , s/p kenalog Chronic ki dney disease 206372168 N18.[address] Banks IJ Chronic neck pain 661774 8680 107 M54.2 Get Xray C-spineIf not better, get PT and may need to see IPC Xray C-spine 12/02/2022 Screening for malignant neoplasm of colon 885982434 Z12.11 Pruritic rash 49977630 L 28.2 In the groin area, red and itchy, not examined today, no rash at present, would like a refill of nystatin-t riamcinolo ne Low back pain 826770900 M54.50 Xrays noted 06/24/2023 Already on the diclofenac given by Kobe Madrigal on flexerillN eeds another apt with ortho Osteoarthr itis of bilateral hip joints 1983701626 24008 M16.0 Has seen Kobe Madrigal another referral Screening for osteoporosis 412145400 Z13.820 Vitamin D deficiency 347 28251 E55.9 [id number] Aditya lancaster MD [facility] [place] [address] [facility] [address] [place] [address] 12/29/2023 10:48:52 12/29/2023 12:31:05 Screening - NAD 123276736 Z13.9 C-scope: 02/22/2014 : Dr Da SilvaC-sco pe: 07/15/2019 : Dr Da Silva Mammogram: 01/13/17: Neg, 01/14/18: Neg 9: Neg 021: Neg 022: Neg 023: BiRads 3: Neg 024: Neg DEXA: 02/14/2020 : Osteopenia , on OTC ca and vit dDEXA: 04/22/2022 : Osteopenia on OTC ca and vit d PAP: Not doing doing these, no problems UTD on flu shotUTD pneumovax #13 03/17/17, #23 05/19/18UT D on shingles vaccine, 4 years agoUTD on tdap 12/06/2019 UTD on COVID 19 vaccineCan do RSV vaccine and new COVID 19 vaccine RTC in 1 monthDo labsER if worseshe did verbalize his understand ing of the above Type 2 ofe betes mellitus without complication 600749329 E11.9 Not taking metformin ER 500mg bidOn ozempic, does well denies any MCT, MEN2 or pancreatic issues, will increase that ozempic to 1mg weeklyGet labs Does wellNeeds to see her eye MD Does see Dr Long on 11/02/2020 Does not want heraclio Mast ill refer to Dr Angeles Hyperlipidemia 18566939 E78.5 On rosuvastat in 20mg dailyGet labs Hypothyroidism 75749382 E03.9 On levothyrox ine 100mcgs dailyDoes wellRepeat the labsGet US thyroid Restless legs 66796672 G 25.81 Not on requip now On tizanidine 4mg dailyDoes well Gastroesop hageal reflux disease without esophagitis 951667429 K21.9 S/p EGDOn nexium, take as needed only Does well Sinus tachycardia 705582 01 R00.0 s/p Stress test 08/24/2020 : NegS/p ECHO 08/24/2020 On metoprolol ER 25mg dailyOn lisinopril 5mg dailyDoes well Sees [facility] Dr Auguste last OV 09/19/2021 Thrombocyt openic disorder 877379204 D69.[address] Heart Last OV 03/13/2021 , f/u yearlyLast OV 03/19/2022 , f/u yearlyOV 04/23/2023 : F/u yearly Obstructiv e sleep apnea syndrome 66954837 G47.33 S/p sleep study 12/28/17Is using the CPAP and is very compliant 04/13/2019 : CT Chest: Deysiholly Butler, no acute intrathora cic process, thyrodi calcificat ions, F/u USOld granulomat os disease Keep apt with [employer] He COMM[employer]ICATIONS OFFICER 08/21/2021 [employer] He COMMUNICATIONS OFFICER 09/11/2022 Dr Warner last 06/12/2023 , next 12/25/2023 Environmental allergy 42 9002449 T78.49XD On proairOn singulair Does well Forgetful 03351074 R41.3 Get labsS/p MRI brain 06/26/2020 May need to see neurology Pain of bi lateral knee joints 6842980848 63436 M25.561 M25.562 S/p jeff TKRs Dr Ramos 09/17/2021 Cirrhosis of liver 49453 007 K74.60 US Liver 06/26/2020 US liver 07/26/2021 : Nodular margins, cirrhosisG et an apt with GI hepatology Dr Roberts also, has seen Anastasia Francisco in 01/2021 Anastasia Gandhi COMMUNICATIONS OFFICER 02/13/2023 , f/u in 6 monthsUS liver 03/13/2022 , see case Moderate r ecurrent major depression 86297991 F33.1 On venlafaxin e ER 75mgs dailyDoes wellNot suicidal or homicidalD eclines any referral to psychiatry Can renew when needed Essential hypertension 20102372 I10 On lisinopril 5mgOn metoprolol ER 25mg daily, may need to adjust this COVID-19 092454803 U07.1 +ve 10/29/2022 , see case 10/29/2022 Pain of ri ght shoulder joint 1184693740 6358566 M25.511 Dr Ramos 10/01/2022 , s/p kenalog Chronic ki dney disease 556830930 N18.[address] Banks IJ Chronic neck pain 881145 1130 107 M54.2 Get Xray C-spineIf not better, get PT and may need to see IPC Xray C-spine 12/02/2022 Screening for malignant neoplasm of colon 784846724 Z12.11 Pruritic rash 20338766 L 28.2 In the groin area, red and itchy, not examined today, no rash at present, would like a refill of nystatin-t riamcinolo ne Low back pain 256413829 M54.50 Xrays noted 06/24/2023 Already on the diclofenac given by Kobe Madrigal on flexerillN eeds another apt with ortho Osteoarthr itis of bilateral hip joints 6090739185 45320 M16.0 Has seen Kobe Madrigal another referral Screening for osteoporosis 240872919 Z13.820 Vitamin D deficiency 347 96535 E55.9 Renewal of prescription 522478524 Z76.0 Health Concerns Section Related Observation LastModified by Organization Detai ls LastModified Time None Recorded Concern Status LastModified by Organization Details LastModified Time None Recorded Advance Directives Directive Y: asked to bring copy for c florez Payers Encounter Date Sequence Insurance Name Policy Number Policy Bush Covered Member ID Bush Member ID Guarantor Name 06/12/2023 1 [employer] (MEDICARE REPLACEMENT PPO) [id number] 1 Mercedes L Zeisset [id number] Mercedes L Zeisset 06/25/2023 1 [employer] (MEDICARE REPLACEMENT PPO) [id number] 1 Mercedes L Zeisset [id number] Mercedes L Zeisset 08/18/2023 1 [employer] (MEDICARE REPLACEMENT PPO) [id number] 1 Mercedes L Zeisset [id number] Mercedes L Zeisset 11/24/2023 1 [employer] (MEDICARE REPLACEMENT PPO) [id number] 1 Mercedes L Zeisset [id number] Mercedes L Zeisset 12/29/2023 1 [employer] (MEDICARE REPLACEMENT PPO) [id number] Mercedes L Zeisset [id number] Mercedes L Zeisset Notes Date Note Type Note Provider Name and Address Organization Details Recorded Time 06/12/2023 text/html Primary care/Ref erring provider: Aditya Joyce MD During the [facility] split sleep study on 12/28/17, AHI = 73. At home since 05/12/23, the patient uses a [employer] AirSense 11 autoset unit with heated humidification. The patient does not need the ramp to start low and go up slowly on the pressure anymore. There is some xerostomia in a.m. There is no hose/mask condensation with water.The patient switched from a [employer] small Eson nasal mask to a [employer] small AirFit N20 nasal mask without chin strap. There is no claustrophobia, no nostril/nose bridge irritation, no facial rash, no facial numbness, no nosebleeding. The patient feels more refreshed upon waking and daytime alertness is improved. Energy levels are sustained until mid afternoon, around 3 pm. At home, the patient sleeps from 11 pm to 8 am and wakes up without an alarm. Snoring: heavy, since 1970s.Snorting: noChoking: noCoughing: yesGasping: noGagging: noSighing: yesWitnessed apnea: yesTwitching or jerking of leg(s), arm(s), body, head: noTeeth grinding: yesTeeth clenching: yesSleeptalking: noSleepwalking: noSleep crying: yesBedwetting: noTongue/lip/gum/cheek biting: noSleeping with open mouth: yesSleep paralysis: noHypnagogic hallucinations: noHypnopompic hallucinations: noVivid dreams: yes, runningDifficulty with sleep onset: noDifficulty with sleep maintenance: yesSleep interruptions: for no known reasonsPatient wakes up with: fatigue, xerostomia, sore throat, headachesDaytime cataplexy: noMorning hypersomnolence: yesAfternoon hypersomnolence: yesCaffeine sources in diet: coffee 1 cup per day, tea 1 glass per day, soda 1 glass per week, chocolate 1 candy per day Associated medical and psychiatric conditions:Congestive heart failure: noCoronary artery disease: noMyocardial infarction: noHypertension: yesStroke: noBronchial asthma: noChronic obstructive pulmonary disease: noDepression: yesBipolar disorder: noAnxiety: yesPanic disorder: noPosttraumatic stress disorder: noAttention deficit and hyperactivity disorder: noObsessive Compulsive disorder: noSchizophrenia: noSchizoaffective disorder: noPersonality disorder: noChronic analgesic use: noChronic sedative/hypnotic use: no EPWORTH SLEEPINESS SCALE (ESS) CHANCE OF DOZING SCORE0 = would never doze1 = slight chance of dozing2 = moderate chance of dozing3 = high chance of dozing SITUATION AND CHANCE OF DOZINGSitting and reading - 1Watching television - 0Sitting inactive in a public place (e.g. a theater or meeting) - 0As a passenger in a car for an hour without a break - 1Lying down to rest in the afternoon when circumstances permit - 1Sitting and talking to someone - 0Sitting quietly after lunch without alcohol - 0In a car, while stopped for a few minutes in the traffic - 0TOTAL SCORE 3Subjectively, patient has a slight chance of dozing. Frna Warner MD [address] [place] [address], [facility] [address], [place], [address], [place] [facility] [employer] 06/12/2023 13:06:24 06/25/2023 text/html Here to darnell Joe Hx:HypothyrodismDepres sionReviewed social family and surgical historyShe is here to discuss above and also to get labs if neededShe feels that she is doing well otherwiseOV 10/29/17:Here for her routine aptShe does have epigastric pain, ongoing since the past 3 weeks agoDid take the TUMS and this helpedShe did do the labs today in the amOV 12/01/17:Here for her one month follow upFeels that she is doing well at this timeShe did do the labs on 11/14/17he is here as she was tachycardic and went and saw cardiologyOV 01/26/18:Here for her routine aptShe feels that she is doing well at this timeShe did do the labs and is here to review theseShe did see Dr Heart the tennis court attendant and is now to see a hepatologistOV 09/21/18:Here for her routine aptShe has some redness in the L lower leg, did have a DVT last use of xarelto was in 05/28No recent labsNo other complaints at this timeOV 10/21/18:Here for her routine aptShe did do labsShe here with her husbandDoing wellOV 01/25/19:Here for her routine aptShe has not done the labs as Kosta did see the ortho ANTWAN Pelaez for her R hip painOtherwise she feels wellOV 05/31/2019:Here for her routine apt thru televisit, she is agreeable to do the visitShe states that she is doing very wellShe states that she has not done the labs and nos not kept her specialist apts d/t the COVID 19 pandamicShe did see Deysi Butler and is now on metformin and is also on a statin, she would like to get a tizanidine renewed as this is really helping her with the legsOV 10/04/2019;Here for her routine aptShe is doing very wellShe did do the labsShe also has seen Dr Ramos for her knee pain and is also to get hip shotsOV 02/14/2020:Here for her routine aptShe is doing well at this timeShe did do the labsOV 06/19/2020:Here for her routine aptShe feels wellShe did do the labsShe would like to get a pill for her anxiety, she feels that this only occurs in social situations such as when she and her visit their familyShe denies any suicidal or homicidal ideation or attemptsShe has also concerns for being 'forgetful' and has been told by her daughter how she is getting more forgetful, denies any headaches or any other complaintsOV 10/23/2020:Here for her routine aptDoes have a cough with 'greenish' mucus, no fever or chills, no N/V or diarrhea, no chest pain or SOB, no wheezing, no exposure to COVID 19, she denies any loss of smell or tasteNo rashShe did do the labsShe is here for her MWVOV 04/02/2021:Here for her routine aptShe is doing wellShe did do the labsShe wants refills on the venlafaxineOV 07/25/2021:Here for her routine aptShe is doing well, here with her husbandShe did the labs on 07/17/2021 OV 11/26/2021:Here for her f/u apt, she is doing well, she did do the labs on 11/23/2021,she is here with Narendra OV 03/27/2022:Here for her f/u apt, she is doing well, she did do the labs and is here with her OV 07/29/2022: Here for her follow up apt with her , is doing well today, did do the labs OV 12/02/2022: Here for her f/u apt, she feels well today and has done her labs OV 03/31/2023: Here for her f/u apt, she is doing well today OV 06/25/2023: ACVC/o LBP, no acute or remote injury, s/p xrays, wants to get her UA tested also, she also wants to get a new referral to GI as Dr Da Silva has not yet contacted herNo N/T or weakness, no loss or bowel or bladder control Aditya Joyce MD [address] [facility], [facility] [address], [place], [address], [facility] [employer] 06/25/2023 17:50:17 08/18/2023 text/html Here to darnell Joe Hx:HypothyrodismDepres sionReviewed social family and surgical historyShe is here to discuss above and also to get labs if neededShe feels that she is doing well otherwiseOV 10/29/17:Here for her routine aptShe does have epigastric pain, ongoing since the past 3 weeks agoDid take the TUMS and this helpedShe did do the labs today in the amOV 12/01/17:Here for her one month follow upFeels that she is doing well at this timeShe did do the labs on 11/14/17he is here as she was tachycardic and went and saw cardiologyOV 01/26/18:Here for her routine aptShe feels that she is doing well at this timeShe did do the labs and is here to review theseShe did see Dr Heart the tennis court attendant and is now to see a hepatologistOV 09/21/18:Here for her routine aptShe has some redness in the L lower leg, did have a DVT last use of xarelto was in 05/28No recent labsNo other complaints at this timeOV 10/21/18:Here for her routine aptShe did do labsShe here with her husbandDoing wellOV 01/25/19:Here for her routine aptShe has not done the labs as Kosta did see the ortho ANTWAN Pelaez for her R hip painOtherwise she feels wellOV 05/31/2019:Here for her routine apt thru televisit, she is agreeable to do the visitShe states that she is doing very wellShe states that she has not done the labs and nos not kept her specialist apts d/t the COVID 19 pandamicShe did see Deysi Butler and is now on metformin and is also on a statin, she would like to get a tizanidine renewed as this is really helping her with the legsOV 10/04/2019;Here for her routine aptShe is doing very wellShe did do the labsShe also has seen Dr Ramos for her knee pain and is also to get hip shotsOV 02/14/2020:Here for her routine aptShe is doing well at this timeShe did do the labsOV 06/19/2020:Here for her routine aptShe feels Sirishahe did do the labsShe would like to get a pill for her anxiety, she feels that this only occurs in social situations such as when she and her visit their familyShe denies any suicidal or homicidal ideation or attemptsShe has also concerns for being 'forgetful' and has been told by her daughter how she is getting more forgetful, denies any headaches or any other complaintsOV 10/23/2020:Here for her routine aptDoes have a cough with 'greenish' mucus, no fever or chills, no N/V or diarrhea, no chest pain or SOB, no wheezing, no exposure to COVID 19, she denies any loss of smell or tasteNo rashShe did do the labsShe is here for her MWVOV 04/02/2021:Here for her routine aptShe is doing wellShe did do the labsShe wants refills on the venlafaxineOV 07/25/2021:Here for her routine aptShe is doing well, here with her husbandShe did the labs on 07/17/2021 OV 11/26/2021:Here for her f/u apt, she is doing well, she did do the labs on 11/23/2021,she is here with Narendra OV 03/27/2022:Here for her f/u apt, she is doing well, she did do the labs and is here with her OV 07/29/2022: Here for her follow up apt with her , is doing well today, did do the labs OV 12/02/2022: Here for her f/u apt, she feels well today and has done her labs OV 03/31/2023: Here for her f/u apt, she is doing well today OV 06/25/2023: ACVC/o LBP, no acute or remote injury, s/p xrays, wants to get her UA tested also, she also wants to get a new referral to GI as Dr Da Silva has not yet contacted herNo N/T or weakness, no loss or bowel or bladder control OV 08/18/2023: Here for her routine apt, she is doing well, she is here for her MWV also Aditya Joyce MD [address] [facility], [facility] [address], [place], [address], [facility] [employer] 08/18/2023 16:55:21 11/24/2023 text/html Here to darnell Joe Hx:HypothyrodismDepres sionReviewed social family and surgical historyShe is here to discuss above and also to get labs if neededShe feels that she is doing well otherwiseOV 10/29/17:Here for her routine aptShe does have epigastric pain, ongoing since the past 3 weeks agoDid take the TUMS and this helpedShe did do the labs today in the amOV 12/01/17:Here for her one month follow upFeels that she is doing well at this timeShe did do the labs on 11/14/17he is here as she was tachycardic and went and saw cardiologyOV 01/26/18:Here for her routine aptShe feels that she is doing well at this timeShe did do the labs and is here to review theseShe did see Dr Heart the tennis court attendant and is now to see a hepatologistOV 09/21/18:Here for her routine aptShe has some redness in the L lower leg, did have a DVT last use of xarelto was in 05/28No recent labsNo other complaints at this timeOV 10/21/18:Here for her routine aptShe did do labsShe here with her husbandDoing wellOV 01/25/19:Here for her routine aptShe has not done the labs as Kosta did see the ortho ANTWAN Pelaez for her R hip painOtherwise she feels wellOV 05/31/2019:Here for her routine apt thru televisit, she is agreeable to do the visitShe states that she is doing very wellShe states that she has not done the labs and nos not kept her specialist apts d/t the COVID 19 pandamicShe did see Deysi Butler and is now on metformin and is also on a statin, she would like to get a tizanidine renewed as this is really helping her with the legsOV 10/04/2019;Here for her routine aptShe is doing very wellShe did do the labsShe also has seen Dr Ramos for her knee pain and is also to get hip shotsOV 02/14/2020:Here for her routine aptShe is doing well at this timeShe did do the labsOV 06/19/2020:Here for her routine aptShe feels Yoni did do the labsShe would like to get a pill for her anxiety, she feels that this only occurs in social situations such as when she and her visit their familyShe denies any suicidal or homicidal ideation or attemptsShe has also concerns for being 'forgetful' and has been told by her daughter how she is getting more forgetful, denies any headaches or any other complaintsOV 10/23/2020:Here for her routine aptDoes have a cough with 'greenish' mucus, no fever or chills, no N/V or diarrhea, no chest pain or SOB, no wheezing, no exposure to COVID 19, she denies any loss of smell or tasteNo rashShe did do the labsShe is here for her MWVOV 04/02/2021:Here for her routine aptShe is doing wellShe did do the labsShe wants refills on the venlafaxineOV 07/25/2021:Here for her routine aptShe is doing well, here with her husbandShe did the labs on 07/17/2021 OV 11/26/2021:Here for her f/u apt, she is doing well, she did do the labs on 11/23/2021,she is here with Narendra OV 03/27/2022:Here for her f/u apt, she is doing well, she did do the labs and is here with her OV 07/29/2022: Here for her follow up apt with her , is doing well today, did do the labs OV 12/02/2022: Here for her f/u apt, she feels well today and has done her labs OV 03/31/2023: Here for her f/u apt, she is doing well today OV 06/25/2023: ACVC/o LBP, no acute or remote injury, s/p xrays, wants to get her UA tested also, she also wants to get a new referral to GI as Dr Da Silva has not yet contacted herNo N/T or weakness, no loss or bowel or bladder control OV 08/18/2023: Here for her routine apt, she is doing well, she is here for her MWV also OV 11/24/2023: Here for her f/u apt, she is doing well today, has noted some fatigue, she did do the labs on 11/21/2023, she states that she is more fatigued as she has put on about 20lbs in 2-3 months, she has worried about her 's health and feels that the ozempic is not working and would like to get the dose increased Aditya Joyce MD [address] [facility], [place], [address], [place] [facility] [place] [employer] 11/24/2023 15:28:52 12/29/2023 text/html Here to darnell Joe Hx:HypothyrodismDepres sionReviewed social family and surgical historyShe is here to discuss above and also to get labs if neededShe feels that she is doing well otherwiseOV 10/29/17:Here for her routine aptShe does have epigastric pain, ongoing since the past 3 weeks agoDid take the TUMS and this helpedShe did do the labs today in the amOV 12/01/17:Here for her one month follow upFeels that she is doing well at this timeShe did do the labs on 11/14/17he is here as she was tachycardic and went and saw cardiologyOV 01/26/18:Here for her routine aptShe feels that she is doing well at this timeShe did do the labs and is here to review theseShe did see Dr Heart the tennis court attendant and is now to see a hepatologistOV 09/21/18:Here for her routine aptShe has some redness in the L lower leg, did have a DVT last use of xarelto was in 05/28No recent labsNo other complaints at this timeOV 10/21/18:Here for her routine aptShe did do labsShe here with her husbandDoing wellOV 01/25/19:Here for her routine aptShe has not done the labs as Kosta did see the ortho ANTWAN Pelaez for her R hip painOtherwise she feels wellOV 05/31/2019:Here for her routine apt thru televisit, she is agreeable to do the visitShe states that she is doing very wellShe states that she has not done the labs and nos not kept her specialist apts d/t the COVID 19 pandamicShe did see Deysi Butler and is now on metformin and is also on a statin, she would like to get a tizanidine renewed as this is really helping her with the legsOV 10/04/2019;Here for her routine aptShe is doing very wellShe did do the labsShe also has seen Dr Ramos for her knee pain and is also to get hip shotsOV 02/14/2020:Here for her routine aptShe is doing well at this timeShe did do the labsOV 06/19/2020:Here for her routine aptShe feels wellShe did do the labsShe would like to get a pill for her anxiety, she feels that this only occurs in social situations such as when she and her visit their familyShe denies any suicidal or homicidal ideation or attemptsShe has also concerns for being 'forgetful' and has been told by her daughter how she is getting more forgetful, denies any headaches or any other complaintsOV 10/23/2020:Here for her routine aptDoes have a cough with 'greenish' mucus, no fever or chills, no N/V or diarrhea, no chest pain or SOB, no wheezing, no exposure to COVID 19, she denies any loss of smell or tasteNo rashShe did do the labsShe is here for her MWVOV 04/02/2021:Here for her routine aptShe is doing wellShe did do the labsShe wants refills on the venlafaxineOV 07/25/2021:Here for her routine aptShe is doing well, here with her husbandShe did the labs on 07/17/2021 OV 11/26/2021:Here for her f/u apt, she is doing well, she did do the labs on 11/23/2021,she is here with Narendra OV 03/27/2022:Here for her f/u apt, she is doing well, she did do the labs and is here with her OV 07/29/2022: Here for her follow up apt with her , is doing well today, did do the labs OV 12/02/2022: Here for her f/u apt, she feels well today and has done her labs OV 03/31/2023: Here for her f/u apt, she is doing well today OV 06/25/2023: ACVC/o LBP, no acute or remote injury, s/p xrays, wants to get her UA tested also, she also wants to get a new referral to GI as Dr Da Silva has not yet contacted herNo N/T or weakness, no loss or bowel or bladder control OV 08/18/2023: Here for her routine apt, she is doing well, she is here for her MWV also OV 11/24/2023: Here for her f/u apt, she is doing well today, has noted some fatigue, she did do the labs on 11/21/2023, she states that she is more fatigued as she has put on about 20lbs in 2-3 months, she has worried about her 's health and feels that the ozempic is not working and would like to get the dose increased OV 12/29/2023: Here for her f/u apt, she is doing well today Aditya Joyce MD [address], [facility] [address], [place], [address], [place] [facility] [place] [facility] 12/29/2023 19:12:55 OBGyn Episode No OBEpisode recorded.
--- OUTSIDE RECORDS SUMMARY | 2024-03-21 13:23 | XMS_ITS | Referral Summary ---
Author Organization [facility] Address [address] [place] [address] Care Team Providers Care Harness Preparer Name Role Phone Soy Joyce MD Primary Care Provider Source Comments [facility],non-owned Affiliates and Associated Physician Practices is amultiple site organization consisting of ambulatory clinics and hospital sitesin [place], [place], [place] and [place]. This disclosure is being madepursuant to the Care Everywhere program and may not contain all information available regarding this patient. 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) ; Metabolic dysfunction-associated steatohepatitis (MASH); Liver lesion 03/04/2024 Travel 03/04/2024 11:00 AM RN MANAGER Office Visit [facility] - GI [address] [facility] [place] [address] Anastasia Gandhi APRN-CNP 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 Discontinue d(List Clean-Up) Esomeprazole Magnesium (NEXIUM PO) Take by mouth as needed Discontinue d(List Clean-Up) Cholecalciferol (vitamin D3) 1.25 MG (78559 UT) capsule Take 1 (one) capsule by [...] tablet by mouth 2 times daily 08/26/2023 Discontinue d(List Clean-Up) montelukast (Singulair) 10 MG [...] Comments Blood Pressure 133/72 03/04/2024 10:58 AM RN MANAGER Pulse 92 03/04/2024 10:58 AM RN MANAGER Temperature 37.2 C (99 F) 03/04/2024 10:58 AM RN MANAGER Respiratory Rate 18 02/13/2023 10:1 3 AM RN MANAGER Oxygen Saturation 95% 03/04/2024 10: 58 AM RN MANAGER Inhaled Oxygen Concentration - - Weight 100.1 kg (220 lb 9.6 oz) 025 10:58 AM RN MANAGER Height 165.1 cm (5' 5 ) 03/04/2024 10:5 8 AM RN MANAGER Body Mass Index 36.71 03/04/2024 10:58 AM RN MANAGER Plan of Treatment Upcoming Encounters Date Type Department Care Team (Late st Contact Info) Description 04/03/2024 9:30 AM RN MANAGER Appointment [facility] MRI [address] [place] [address] Anastasia Gandhi, C[employer]GIVERS NON MEDICAL-CP BLEACHER OPERATOR [address] [facility] [address] [place] [address] Goals Goal Patient Goal Type Associated Problems Recent Progress Patient-Stated? 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) Liver lesion COMPREHENSIVE METABOLIC PANEL Routine 03/04/2024 12:25 PM RN MANAGER 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) Liver lesion CBC W AUTO DIFFERENTIAL Routine 03/04/2024 12:25 PM RN MANAGER 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) Liver lesion ALPHA FETOPROTEIN BLOOD TUMOR MARKER Routine 03/04/2024 12:25 PM RN MANAGER 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) Thrombocytopenia, unspecified (HCC) Metabolic syndrome US ABDOMEN LIMITED Routine 03/04/2024 10 :33 AM RN MANAGER 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 For high-risk patients (Mechanical Mitral Valve Prosthesis, etc.), the suggested prophylactic therapeutic range is an INR of 2.5-3.5. Blood BLOOD SPECIMEN / Unknown Lab Venipuncture / Unknown 03/04/2024 12:25 PM RN MANAGER 03/04/2024 12:34 PM RN MANAGER [facility] - COAGU LATION ORDERABLES Performing Organization Address [facility] [place]/[facility]/ZIP Co de Phone Number [address] [address], [facility] [phone] * ALPHA FETOPROTEIN BLOOD TUMOR MARKER (03/04/2024 12:25 PM RN MANAGER) [facility] Alpha-Fetoprote in Tumor Marker 6.7 <=8.3 ng/mL 03/04/2024 1:22 PM RN MANAGER [facility] Comment: AFP values will vary depending on testing procedure used. Results are not comparable across different methods. AFP values obtained by [facility] using an Holland Alinity Immunoassay. Blood BLOOD SPECIMEN / Unknown Lab Venipuncture / Unknown 03/04/2024 12:25 PM RN MANAGER 03/04/2024 12:32 PM RN MANAGER Anastasia Gandhi [facility] - CHEMI STRY ORDERABLES Performing Organization Address [facility] [place]/[facility]/ZIP Co de Phone Number [address] [address], [facility] [phone] * (ABNORMAL) CBC WITH DIFFERENTIAL (03/04/2024 12:25 PM [facility]) WBC 5.5 4.0 - 10.7 x10E9/L 03/04/2024 12:39 PM [facility] RBC Count 4.76 3.90 - 5.20 x10E12/L 03/04/2024 12:39 PM [facility] Hemoglobin 14.6 11.9 - 15.8 g/dL 03/04/2024 12:39 PM [facility] Hematocrit 45.8 34.8 - 46.1 % 03/04/2024 12:39 PM [facility] MCV 96.2 80.0 - 98.0 fL 03/04/2024 12:39 PM [facility] MCH 30.7 26.7 - 33.6 pg 03/04/2024 12:39 PM [facility] MCHC 31.9 31.7 - 36.3 g/dL 03/04/2024 12:39 PM [facility] RDW-CV 13.7 11.3 - 14.8 % 03/04/2024 12:39 PM [facility] Platelet Count 149(L) 150 - 420 x10E9/L 03/04/2024 12:39 PM [facility] MPV 9.4 7.8 - 11.4 fL 03/04/2024 12:39 PM [facility] Neutrophil % 60.8 41.0 - 74.0 % 03/04/2024 12:39 PM [facility] Lymphocyte % 26.5 17.0 - 47.0 % 03/04/2024 12:39 PM [facility] Monocyte % 9.6 3.0 - 11.0 % 03/04/2024 12:39 PM [facility] Eosinophil % 2.2 0.0 - 7.0 % 03/04/2024 12:39 PM [facility] Basophil % 0.7 0.0 - 1.6 % 03/04/2024 12:39 PM [facility] Immature Granulocytes % 0.2 0.0 - 1.0 % 03/04/2024 12:39 PM [facility] Neutrophil Absolute 3.37 1.60 - 7.50 x10E9/L 03/04/2024 12:39 PM [facility] Lymphocyte Absolute 1.47 1.00 - 4.40 x10E9/L 03/04/2024 12:39 PM [facility] Monocyte Absolute 0.53 0.15 - 1.00 x10E9/L 03/04/2024 12:39 PM [facility] Eosinophil Absolute 0.12 0.00 - 0.60 x10E9/L 03/04/2024 12:39 PM [facility] Basophil Absolute 0.04 0.00 - 0.13 x10E9/L 03/04/2024 12:39 PM [facility] Blood BLOOD SPECIMEN / Unknown Lab Venipuncture / Unknown 03/04/2024 12:25 PM RN MANAGER 03/04/2024 12:32 PM [facility] Anastasia Gandhi CAREGIVERS NON MEDICAL-CP BLEACHER OPERATOR LAB - HEMAT OLOGY ORDERABLES Performing Organization Address City/[facility] Co de Phone Number [facility] [address] [place] [phone] [phone] * (ABNORMAL) COMPREHENSIVE METABOLIC PANEL (03/04/2024 12:25 PM RN MANAGER) BUN 16 7 - 26 mg/dL 03/04/2024 12:59 PM [facility] Creatinine 0.92 0.56 - 0.96 mg/dL 03/04/2024 12:59 PM [facility] Sodium 141 136 - 145 mmol/L 03/04/2024 12:59 PM [facility] Potassium 4.6(H) 3.5 - 4.5 mmol/L 03/04/2024 12:59 PM [facility] Chloride 106 98 - 107 mmol/L 03/04/2024 12:59 PM [facility] CO2 26 22 - 29 mmol/L 03/04/2024 12:59 PM [facility] Glucose 110(H) 70 - 99 mg/dL 03/04/2024 12:59 PM [facility] Calcium 9.7 8.4 - 10.2 mg/dL 03/04/2024 12:59 PM [facility] Protein Total 7.5 6.0 - 8.3 g/dL 03/04/2024 12:59 PM [facility] Albumin 4.0 3.4 - 5.0 g/dL 03/04/2024 12:59 PM [facility] Bilirubin Total 0.6 0.2 - 1.2 mg/dL 03/04/2024 12:59 PM [facility] Alkaline Phosphatase 51 40 - 150 U/L 03/04/2024 12:59 PM [facility] ALT 26 5 - 55 U/L 03/04/2024 12:59 PM [facility] AST 30 5 - 34 U/L 03/04/2024 12:59 PM [facility] Anion Gap 9 6 - 16 03/04/2024 12:59 PM [facility] BUN/Creatinine Ratio 17 7 - 23 03/04/2024 12:59 PM [facility] Osmolality Calculated 294 275 - 295 mOsm/kg 03/04/2024 12:59 PM [facility] Albumin/Globulin Ratio 1.1 1.1 - 2.3 03/04/2024 12:59 PM [facility] eGFR by CKD-EPI 63(L) >=90 mL/min/1.7 3 m2 03/04/2024 12:59 PM [facility] Blood BLOOD SPECIMEN / Unknown Lab Venipuncture / Unknown 03/04/2024 12:25 PM RN MANAGER 03/04/2024 12:32 PM RN MANAGER Anastasia Gandhi CAREGIVERS NON MEDICAL-CP BLEACHER OPERATOR LAB - CHEMI STRY ORDERABLES [facility] [address] [place] [phone], [facility] [phone] * US ABDOMEN LIMITED (03/04/2024 10:33 AM RN MANAGER) Anatomical Region Laterality Modality Abdomen Ultrasound 03/04/2024 10:4 5 AM RN MANAGER Impressions 03/04/2024 11:22 AM RN MANAGER Impression: 1.Liver Visualization Score A: No or minimal limitations. 2.US-2 Subthreshold. Repeat surveillance US in 3-6 months. 3.Redemonstrated hepatic cirrhosis with sequela of portal hypertension. Report drafted by Jeff Leggett MD (resident). I, Lila Pool MD have personally reviewed and interpreted this examination/study. > Interpreting Provider: Lila Pool MD on 03/04/2024 11:22 AM Narrative 03/04/2024 11:22 AM RN MANAGER PROCEDURE: US ABDOMEN LIMITED DATE/TIME OF EXAM: [...] MD on 03/04/2024 11:22 AM Anastasia Gandhi CAREGIVERS NON MEDICAL-CP BLEACHER OPERATOR US ORDERABL ES * MICROALB/CREAT RATIO URINE [...] Recently Relevant to Health Maintenance Care Teams Harness Preparer Relationship Specialty Start Date End Date Soy Joyce MD [address] [facility] [address] [place] [address] PCP - General 02/04/21
--- OUTSIDE RECORDS SUMMARY | 2024-03-21 13:23 | XMS_ITS | Patient Health Record ---
Author Organization [facility] Address [address] [facility] [address] [place] [address] REASON FOR REFERRAL No Information MEDICATIONS Medication SIG (Take, Route, Frequency, Duration) Notes Start Date End Date Status Vitamin D (Ergocalciferol) 1.25 MG (30028 UT) TAKE 1 CAPSULE BY MOUTH EVERY OTHER WEEK for 30 Active PROBLEMS Problem Type ICD Code Onset Dates Problem Status W/U Status Risk SNOMED Code Notes Problem Type 2 diabetes mellitus with hyperglycemia (E11.65) Active confirmed Hyperglycemia due to type 2 diabetes mellitus (139694364273430 ) Problem Essential (primary) hypertension (I10) Active confirmed Essential hypertension (78546600) Problem Chronic kidney disease, stage 2 (mild) (N18.2) Active confirmed Chronic kidne y disease stage 2 (504435582) Problem Proteinuria, unspecified (R80.9) Active confirmed Proteinuria (54265029) PLAN OF TREATMENT No Information
[2024-03-21 13:24] VITALS: BP 148/108; PULSE 113; RESP 16; TEMP 36.2; O2SAT 96
--- OUTSIDE RECORDS SUMMARY | 2024-03-21 13:50 | XMS_ITS | Clinical Summary ---
Author Organization [facility] Address [address] [place] [address] Care Team Providers Care Tobacco Prizer Name Role Phone Soy Joyce MD Primary Care Provider [phone] Medications olmesartan (BENICAR) 5 MG tablet Take 1 tablet (5 mg total) by mouth 1 (one) time each day 90 tablet 1 12/30/2023 Active Encounters Date Type Department Care Team Description 03/05/2024 Documentation Only [place] [facility], [address] [address] Antwan Arora DO 03/03/2024 Documentation Only [place] [facility], [address] [address] Antwan Arora DO 03/02/2024 4:00 PM BEATER TENDER Office Visit [place] [facility], [address] [place] [address] Antwan Arora DO Stage 3a chronic kidney disease (HCC) (Primary Dx); Persistent proteinuria; Obstructive sleep apnea syndrome; Hepatic fibrosis with hepatic sclerosis; Hypertensive chronic kidney disease; Type 2 diabetes mellitus with diabetic chronic kidney disease (HCC); Pure hypercholesterolemia, not otherwise specified; Other specified hypothyroidism 03/02/2024 Documentation Only [place] [facility], [address] [phone] Antwan Arora DO 03/02/2024 Documentation Only [address] [phone] Antwan Arora DO 02/06/2024 Documentation Only [address] [phone] Antwan Arora DO 12/30/2023 2:00 PM BEATER TENDER Office Visit [facility] [address] [address] Antwan Arora DO Stage 3a chronic kidney disease (HCC) (Primary Dx); Persistent proteinuria; Obstructive sleep apnea syndrome; Hepatic fibrosis with hepatic sclerosis; Hypertensive chronic kidney disease; Type 2 diabetes mellitus with diabetic chronic kidney disease (HCC); Pure hypercholesterolemia, not otherwise specified; Other specified hypothyroidism 12/30/2023 [address]ill [facility] [address] [address] Liv Lynch CMA from Last [...] Comments Blood Pressure 110/60 03/02/2024 3:49 PM BEATER TENDER Pulse 68 03/02/2024 3:49 PM BEATER TENDER Temperature 36.7 C (98 F) 03/02/2024 3:49 PM BEATER TENDER Respiratory Rate 18 03/02/2024 3:49 PM BEATER TENDER Oxygen Saturation 97% 03/02/2024 3:49 PM BEATER TENDER Inhaled Oxygen Concentration - - Weight 99.3 kg (219 lb) 03/02/2024 3:49 PM BEATER TENDER Height - - Body Mass Index - - Plan of Treatment Upcoming Encounters Date Type Department Care Team (Late st Contact Info) Description 08/31/2024 12:30 PM CDT Office Visit [facility] [address] [facility] [address] [place] [address] Antwan Arora DO [address] [place] [phone] Health Maintenance Due Date Last Done Comments Hepatitis B Vaccine (1 of 3 - Risk 3-dose series) 2003 Influenza Vaccine (#1) 2023 0, 12/11/2018, 12/01/2017, Additional history exists Diabetes: Hemoglobin A1C 10/28/2023 Diabetes: Ophthalmology Exam 10/28/2023 Diabetes: Pedal Pulse Checked 10/28/2023 Diabetes: Sensory Foot Exam 10/28/2023 Diabetes: Visual Foot Exam 10/28/2023 Pneumococcal Vaccine: 65+ Years Completed 9, 03/17/2017 Insurance [employer] MCR ADV PPO ([id number]) Advance Directives Documents on File Type Date Recorded Patient Manager Corporate Communications Expl anation Advance Care Planning 01/02/2024 12:13 PM Care Teams Tobacco Prizer Relationship Specialty Start Date End Date Soy Joyce MD [address] [facility], [address] [place] [address] PCP - General Internal Medicine 09/25/23
--- OUTSIDE RECORDS SUMMARY | 2024-03-21 13:50 | XMS_ITS | Patient Health Summary ---
Author Organization [facility] Address [address] [place] [place] [address] Care Team Providers Care Garage Attendant Name Role Phone Soy Joyce MD Primary Care Provider Note from [facility],non-owned Affiliates and Associated Physician Practices is amultiple site organization consisting of ambulatory clinics and hospital sitesin [place], [place], [place] and [place]. This disclosure is being madepursuant to the Care Everywhere program and may not contain all information available regarding this patient. Last updated 17.[facility] Allergies No known active allergies [...] needed * Cholecalciferol (vitamin D3) 1.25 MG (08912 UT) capsule(Discontinued) Take 1 (one) capsule by [...] Comments Blood Pressure 133/72 03/04/2024 10:58 AM VETERINARY MEDICAL OFFICER Pulse 92 03/04/2024 10:58 AM VETERINARY MEDICAL OFFICER Temperature 37.2 C (99 F) 03/04/2024 10:58 AM VETERINARY MEDICAL OFFICER Respiratory Rate 18 02/13/2023 10:1 3 AM VETERINARY MEDICAL OFFICER Oxygen Saturation 95% 03/04/2024 10: 58 AM VETERINARY MEDICAL OFFICER Inhaled Oxygen Concentration - - Weight 100.1 kg (220 lb 9.6 oz) 025 10:58 AM VETERINARY MEDICAL OFFICER Height 165.1 cm (5' 5 ) 03/04/2024 10:5 8 AM VETERINARY MEDICAL OFFICER Body Mass Index 36.71 03/04/2024 10:58 AM VETERINARY MEDICAL OFFICER Procedures * PT-INR [facility](Performed 03/04/2024) Performed for [...] W DIFF (EXTERNAL RESULT ENTRY)(Performed 03/05/2022) * ME LIVER ELASTOGRAPHY(Performed 11/20/2021) Performed for Elevated liver [...] 05/10/2021) Performed for Elevated liver enzymes * [id number]-0-[id number] BLOOD PHENOTYPING PANEL(Performed 05/10/2021) Performed for Elevated [...] (EXTERNAL RESULT ENTRY)(Performed 02/20/2021) Results * PT-INR [facility] (03/04/2024 12:25 PM VETERINARY MEDICAL OFFICER) Only the most recent of2 resultswithin the time period is included. PT 13.6 12.1 - 14.8 Seconds 03/04/2024 12:59 PM VETERINARY MEDICAL OFFICER [facility] INR 1.1 See Comment 03/04/2024 12:59 PM VETERINARY MEDICAL OFFICER [facility] Comment:The suggested therap eutic range for standard coumadin (warfarin) therapy is an INR of 2.0-3.0. For high-risk patients (Mechanical Mitral Valve Prosthesis, etc.), the suggested prophylactic therapeutic range is an INR of 2.5-3.5. Blood BLOOD SPECIMEN / Unknown Lab Venipuncture / Unknown 03/04/2024 12:25 PM VETERINARY MEDICAL OFFICER 03/04/2024 12:34 PM VETERINARY MEDICAL OFFICER Anastasia Gandhi FILENET DEVELOPER-SUPERVISOR TYPESETTING LAB - COAGU LATION ORDERABLES Performing Organization Address [facility] Co de Phone Number [address] [address], [facility] [phone] * ALPHA FETOPROTEIN BLOOD TUMOR MARKER (03/04/2024 12:25 PM VETERINARY MEDICAL OFFICER) Only the most recent of2 resultswithin the time period is included. [facility] Alpha-Fetoprote in Tumor Marker 6.7 <=8.3 ng/mL 03/04/2024 1:22 PM [facility] Comment: AFP values will vary depending on testing procedure used. Results are not comparable across different methods. AFP values obtained by [facility] using an [employer] Alinity Immunoassay. Blood BLOOD SPECIMEN / Unknown Lab Venipuncture / Unknown 03/04/2024 12:25 PM VETERINARY MEDICAL OFFICER 03/04/2024 12:32 PM VETERINARY MEDICAL OFFICER Anastasia Gandhi FILENET DEVELOPER-SUPERVISOR TYPESETTING LAB - CHEMI STRY ORDERABLES Performing Organization Address [facility] Co de Phone Number [address] [address], [facility] [phone] * (ABNORMAL) CBC WITH DIFFERENTIAL (03/04/2024 12:25 PM VETERINARY MEDICAL OFFICER) Only the most recent of2 resultswithin the time period is included. [facility] WBC 5.5 4.0 - 10.7 x10E9/L 03/04/2024 [...] Lab Venipuncture / Unknown 03/04/2024 12:25 PM VETERINARY MEDICAL OFFICER 03/04/2024 12:32 PM VETERINARY MEDICAL OFFICER Anastasia Jannie Gandhi FILENET DEVELOPER-SUPERVISOR TYPESETTING LAB - HEMAT OLOGY ORDERABLES [facility] [address] [place] [address], [facility] [phone] * (ABNORMAL) COMPREHENSIVE METABOLIC PANEL (03/04/2024 12:25 PM VETERINARY MEDICAL OFFICER) Only the most recent of2 resultswithin the [...] 5 - 34 U/L 03/04/2024 12:59 PM [facility] Anion Gap 9 6 - 16 [...] Lab Venipuncture / Unknown 03/04/2024 12:25 PM VETERINARY MEDICAL OFFICER 03/04/2024 12:32 PM VETERINARY MEDICAL OFFICER Anastasia N Gandhi FILENET DEVELOPER-SUPERVISOR TYPESETTING LAB - CHEMI STRY ORDERABLES [facility] [address] [place] [phone], [facility] [phone] * US ABDOMEN LIMITED (03/04/2024 10:33 AM VETERINARY MEDICAL OFFICER) Only the most recent of4 resultswithin the time period is included. Anatomical Region Laterality Modality Abdomen Ultrasound 03/04/2024 10:4 5 AM VETERINARY MEDICAL OFFICER Impressions 03/04/2024 11:22 AM VETERINARY MEDICAL OFFICER Impression: 1.Liver Visualization Score A: No or minimal limitations. 2.US-2 Subthreshold. Repeat surveillance US in 3-6 months. 3.Redemonstrated hepatic cirrhosis with sequela of portal hypertension. Report drafted by Jeff Leggett MD (resident). I, Lila Pool MD have personally reviewed and interpreted this examination/study. > Interpreting Provider: Lila Pool MD on 03/04/2024 11:22 AM Narrative 03/04/2024 11:22 AM VETERINARY MEDICAL OFFICER PROCEDURE: US ABDOMEN LIMITED DATE/TIME OF EXAM: [...] MD on 03/04/2024 11:22 AM Anastasia Gandhi FILENET DEVELOPER-SUPERVISOR TYPESETTING US ORDERABL ES * (ABNORMAL) CBC W [...] - CHEMISTRY O DENAE Performing Organization Address City/[facility] de Phone Number OTHER LAB [...] - CHEMISTRY O DENAE Performing Organization Address [facility] de Phone Number OTHER LAB * TSH (EXTERNAL RESULT ENTRY) (11/27/2022 9:45 AM CDT) Only the most recent of3 resultswithin the time period is included. TSH (EXTERNAL RESULT) 0.060 uIU/mL OTHER LAB Blood BLOOD SPECIMEN / Unknown 11/27/2022 9:45 AM CDT Historical Provider LAB - CHEMISTRY O DENAE Performing Organization Address City/[facility] Co de Phone Number OTHER LAB * T4 FREE (EXTERNAL RESULT ENTRY) (11/27/2022 9:45 AM CDT) Only the most recent of3 resultswithin the time period is included. T4 Free (EXTERNAL RESULT) 3.00 ng/dl OTHER LAB Blood BLOOD SPECIMEN / Unknown 11/27/2022 9:45 AM CDT Historical Provider LAB - CHEMISTRY O RDERAMICHAEL Performing Organization Address [facility] de Phone Number OTHER LAB * MICROALB/CREAT RATIO URINE (EXTERNAL RESULT ENTRY) (11/27/2022 9:45 AM CDT) Only the most recent of2 resultswithin the time period is included. Microalb/Creat Ratio (EXTERNAL RESULT) 84.4 mg/g OTHER LAB Urine URINE / Unknown 11/27/2022 9 :45 AM CDT Historical Provider LAB - URINE CHEMI STRY ORDERABLES Performing Organization Address [facility] de Phone Number OTHER LAB * HEMOGLOBIN A1C (EXTERNAL RESULT ENTRY) (11/27/2022 9:45 AM CDT) Only the most recent of3 resultswithin the time period is included. Hemoglobin A1c (EXTERNAL RESULT) 5.6 % OTHER LAB Blood BLOOD SPECIMEN / Unknown 11/27/2022 9:45 AM CDT Historical Provider LAB - CHEMISTRY O RDERAMICHAEL Performing Organization Address [facility] de Phone Number OTHER LAB * (ABNORMAL) PT INR (EXTERNAL RESULT ENTRY) (03/13/2022 8:46 AM VETERINARY MEDICAL OFFICER) Only the most recent of2 resultswithin the time period is included. PT (EXTERNAL) 12.0(A) sec OTHER LAB INR (EXTERNAL RESULT) 1.2 OTHER LAB Blood BLOOD SPECIMEN / Unknown 03/13/2022 8:46 AM VETERINARY MEDICAL OFFICER Historical Provider LAB - CHEMISTRY O RDSADI Performing Organization Address [facility] de Phone Number OTHER LAB * AFP (EXTERNAL RESULT ENTRY) (03/13/2022 8:46 AM VETERINARY MEDICAL OFFICER) Alpha-Fetoprote in (EXTERNAL RESULT) 5.1 OTHER LAB Blood BLOOD SPECIMEN / Unknown 03/13/2022 8:46 AM VETERINARY MEDICAL OFFICER Historical Provider LAB - CHEMISTRY O RDSADI Performing Organization Address [facility] de Phone Number OTHER LAB * VITAMIN D HYDROXY (EXTERNAL RESULT) (03/05/2022 9:52 AM VETERINARY MEDICAL OFFICER) Vitamin D Hydroxy (External Result) 69.6 OTHER LAB Blood 03/05/2022 9:52 AM VETERINARY MEDICAL OFFICER Historical Provider LAB - CHEMISTRY O DENAE Performing Organization Address [facility] de Phone Number OTHER LAB [...] patients with nonalcoholic fatty liver disease. Gastroenterology 2019;156:0455-6007. [place] MS, Ирина R, [place] ML, [...] FIB4 score (Davyduke et al. [employer] 2019;3:2744-8019) or NAFLD Fibrosis score (Richmond et al. Clinical Gastroenterology and Hepatology 2019;17:9220-6232. from routine clinical data. 3. Liver stiffness [...] change as additional supporting data becomes available. [email or web address] Anastasia Gandhi FILENET DEVELOPER-SUPERVISOR TYPESETTING PROCEDURE/M INOR SURGICAL ORDERABLES * SMOOTH MUSCLE ANTIBODY W REFLEX TITER (05/10/2021 3:05 PM CDT) F-Actin Antibody IgG 19 0 - 19 Units 05/12/2021 7:42 AM CDT [facility] ([facility]) Comment: If F-Actin (Smooth Muscle) [...] suspicion for AIH is strong. Performed By: [facility] [address] [place] [address] Drafter Mechanical: Inge Mims MD Blood BLOOD SPECIMEN / Unknown Lab Venipuncture / Unknown 05/10/2021 3:05 PM CDT 05/10/2021 4:02 PM CDT Anastasia Gandhi FILENET DEVELOPER-SUPERVISOR TYPESETTING LAB - SEROL OGY ORDERABLES [facility] ([facility]) [address] [place] [address], [facility] * MITOCHONDRIAL ANTIBODY SCREEN (05/10/2021 3:05 PM CDT) Mitochondrial M2 Antibody 6.7 0.0 - 24.9 Units 05/12/2021 7:42 AM CDT [facility] [employer] ([facility]) Comment: REFERENCE INTERVAL: Mitochondrial (M2) [...] does not rule out PBC. Performed By: [facility] [address] [place] [address] Drafter Mechanical: Inge Mims MD Blood BLOOD SPECIMEN / Unknown Lab Venipuncture / Unknown 05/10/2021 3:05 PM CDT 05/10/2021 4:02 PM CDT Anastasia Gandhi FILENET DEVELOPER-SUPERVISOR TYPESETTING LAB - CHEMI STRY ORDERABLES [facility] [employer] [facility]) [address] [place] [address], [facility] * [id number]-8-[id number] BLOOD PHENOTYPING PANEL (05/10/2021 3:05 PM CDT) Pathologist [facility] Gcxut-7-Dyghohcezg n Phenotype M1M1 05/14/2021 4:52 PM CDT [facility] ([facility]) Comment: The patient appears to have a normal phenotype. All M alleles (including subtypes M1, M2, and M3) produce normal serum concentrations of lxamr-4-msxpncli inhibitor and are not associated with clinical disease. Caution in interpretation is advised if the patient has been transfused within the previous 21 days. Performed By: [facility] [address] [place] [address] Drafter Mechanical: Inge Mims MD Fqjxv-1-Sdgubnejdm n 163 90 - 200 mg/dL 05/14/2021 4:52 PM CDT [facility] ([facility]) Comment:To convert to umol/L , multiply mg/dL by 0.185 Blood BLOOD SPECIMEN / Unknown Lab Venipuncture / Unknown 05/10/2021 3:05 PM CDT 05/10/2021 4:02 PM CDT Anastasia Gandhi APRNBELCHERTOWN STATE SCHO[facility] LAB - CHEMI STRY ORDERABLES [employer] [facility]) [address] [place] [address], [facility] * KAIT BLOOD SCREEN W/REFLEX TITER (05/10/2021 3:05 PM CDT) KAIT IgG None Detected None Detected 05/12/2021 9:16 PM CDT [employer] ([facility]) Comment: If suspicion of connective tissue disease is strong and KAIT EIA is negative, consider testing for KAIT by IFA ([id number]). INTERPRETIVE INFORMATION: Anti-Nuclear Antibodies (KAIT), IgG by FORTINO Antinuclear Antibodies (KAIT), IgG by FORTINO: KAIT specimens are screened using enzyme-linked immunosorbent assay (FORTINO) methodology. All FORTINO results reported as Detected are further tested by indirect fluorescent assay (IFA) using HEp-2 substrate with an IgG-specific conjugate. The KAIT FORTINO screen is designed to detect antibodies against dsDNA, histones, SS-A (Ro), SS-B (La), [place], [place]/BOAT OFFICER, Scl-70, Jennifer-1, centromeric proteins, other antigens extracted from the HEp-2 cell nucleus. KAIT FORTINO assays have been reported to have lower sensitivities than KAIT IFA for systemic autoimmune rheumatic diseases (SARD). Negative results do not necessarily rule out SARD. Performed By: [facility] [address] [place] [address] Drafter Mechanical: Inge Mims MD Blood BLOOD SPECIMEN / Unknown Lab Venipuncture / Unknown 05/10/2021 3:05 PM CDT 05/10/2021 4:02 PM CDT Anastasia WYATT LAB - CHEMI STRY ORDERABLES [facility] [employer] ([facility]) [address] [place] [id number], [facility] * CERULOPLASMIN (05/10/2021 3:05 PM CDT) Ceruloplasmin 32 20 - 60 mg/dL 05/10/2021 4:25 PM CDT [facility] Blood BLOOD SPECIMEN / Unknown Lab Venipuncture / Unknown 05/10/2021 3:05 PM CDT 05/10/2021 4:02 PM CDT Anastasia Gandhi APRN-SUPERVISOR TYPESETTING LAB - CHEMI STRY ORDERABLES Performing Organization Address City/[facility]/ZIP Co de Phone Number [address] [address], [place] [phone] * HEPATITIS B CORE ANTIBODY (05/10/2021 3:05 PM CDT) HBc Antibody Total Non-reacti ve Non-reacti ve 05/10/2021 4:44 PM CDT [facility] Blood BLOOD SPECIMEN / Unknown Lab Venipuncture / Unknown 05/10/2021 3:05 PM CDT 05/10/2021 4:02 PM CDT Anastasia Gandhi APRN-SUPERVISOR TYPESETTING LAB - CHEMI STRY ORDERABLES [address] [address], [place] [phone] * IGG BLOOD (05/10/2021 3:05 PM CDT) IgG 998 767-1,590 mg/dL 05/10/2021 4:27 PM CDT [facility] Blood BLOOD SPECIMEN / Unknown Lab Venipuncture / Unknown 05/10/2021 3:05 PM CDT 05/10/2021 4:02 PM CDT Anastasia Gandhi FILENET DEVELOPER-SUPERVISOR TYPESETTING LAB - CHEMI STRY ORDERABLES [facility] [address] [place] [address], [facility] [phone] * FERRITIN (EXTERNAL RESULT ENTRY) (02/20/2021) Ferritin (EXTERNAL RESULT) 14 Blood BLOOD SPECIMEN / Unknown 02/20/2021 Soy Joyce MD LAB - CHEMISTRY ORDERABLES * IRON/SATURATION (EXTERNAL RESULT ENTRY) (02/20/2021) Iron (EXTERNAL RESULT) 120 mcg/dl Transferrin (EXTERNAL RESULT) Transferrin Saturation (EXTERNAL RESULT) 29 % Blood BLOOD SPECIMEN / Unknown 02/20/2021 Anastasia Gandhi APRNB[facility]CH[facility] STATE [facility] LAB - CHEMI STRY ORDERABLES Care Teams Garage Attendant Relationship Specialty Start Date End Date Soy Joyce MD [address] [phone] PCP - General 02/04/21
--- OUTSIDE RECORDS SUMMARY | 2024-03-21 13:50 | XMS_ITS | Referral Summary ---
Author Organization [facility] Address [address] [place] [address] Care Team Providers Care Knot Picker Cloth Name Role Phone Soy Joyce MD Primary Care Provider Source Comments [facility],non-owned Affiliates and Associated Physician Practices is amultiple site organization consisting of ambulatory clinics and hospital sitesin [place], [place], [place] and [place]. This disclosure is being madepursuant to the Care Everywhere program and may not contain all information available regarding this patient. Last updated 17.[facility] Encounters Date Type Department Care Team Description 03/15/2024 Telephone [facility] [address] [place] [address] Anastasia Gandhi APRN-CNP Results 03/04/2024 11:47 AM TECHNICAL CUSTOMER SUPPORT SPECIALIST - 03/04/2024 11:59 PM TECHNICAL CUSTOMER SUPPORT SPECIALIST Hospital Encounter [facility] LAB OP DRAW STATION [address] [place] [address] Anastasia Gandhi APRN-MARY JO Discharge Disposition: Home or Self Care 03/04/2024 Orders Only [facility] [address] [place] [address] Anastasia Gandhi APRN-CNP Liver cirrhosis secondary to GARCAI (HCC) ; Metabolic dysfunction-associated steatohepatitis (MASH); Liver lesion 03/04/2024 Travel 03/04/2024 11:00 AM TECHNICAL CUSTOMER SUPPORT SPECIALIST Office Visit [facility] - GI [address] [facility], [place] [address] Anastasia Gandhi APRN-CNP 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); Metabolic dysfunction-associated steatohepatitis (MASH); Thrombocytopenia, unspecified (HCC); Metabolic syndrome 03/04/2024 10:05 AM TECHNICAL CUSTOMER SUPPORT SPECIALIST - 03/04/2024 11:46 AM TECHNICAL CUSTOMER SUPPORT SPECIALIST Hospital Encounter [facility] [address] [place] [address] Anastasia Gandhi APRN-CNP Discharge Disposition: Home or [...] d(List Clean-Up) Cholecalciferol (vitamin D3) 1.25 MG (52665 UT) capsule Take 1 (one) capsule by [...] Comments Blood Pressure 133/72 03/04/2024 10:58 AM TECHNICAL CUSTOMER SUPPORT SPECIALIST Pulse 92 03/04/2024 10:58 AM TECHNICAL CUSTOMER SUPPORT SPECIALIST Temperature 37.2 C (99 F) 03/04/2024 10:58 AM TECHNICAL CUSTOMER SUPPORT SPECIALIST Respiratory Rate 18 02/13/2023 10:1 3 AM TECHNICAL CUSTOMER SUPPORT SPECIALIST Oxygen Saturation 95% 03/04/2024 10: 58 AM TECHNICAL CUSTOMER SUPPORT SPECIALIST Inhaled Oxygen Concentration - - Weight 100.1 kg (220 lb 9.6 oz) 025 10:58 AM TECHNICAL CUSTOMER SUPPORT SPECIALIST Height 165.1 cm (5' 5 ) 03/04/2024 10:5 8 AM TECHNICAL CUSTOMER SUPPORT SPECIALIST Body Mass Index 36.71 03/04/2024 10:58 AM TECHNICAL CUSTOMER SUPPORT SPECIALIST Plan of Treatment Upcoming Encounters Date Type Department Care Team (Late st Contact Info) Description 04/03/2024 9:30 AM TECHNICAL CUSTOMER SUPPORT SPECIALIST Appointment [facility] MRI [address] [place] [address] Anastasia Gandhi, FREELANCE MAKEUP ARTIST-MICROBIOLOGY TECHNICIAN [address] [facility] [address] [place] [address] Goals Goal Patient Goal Type Associated Problems Recent Progress Patient-Stated? Author Medication Management General On track( 10:55 AM TECHNICAL CUSTOMER SUPPORT SPECIALIST) No Lana Shultz RN Note: Expected end date: Ongoing Interventions: Take all medications as prescribed Let your doctor know right away about any changes in your medications Make sure to request a refill of your medication at least one week prior to your last dose Safety General On track( 11:03 AM TECHNICAL CUSTOMER SUPPORT SPECIALIST) No Neida Javed RN Note: Expected end [...] Comments PT-INR [facility] Routine 03/04/2024 12:25 PM TECHNICAL CUSTOMER SUPPORT SPECIALIST 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) Liver lesion COMPREHENSIVE METABOLIC PANEL Routine 03/04/2024 12:25 PM TECHNICAL CUSTOMER SUPPORT SPECIALIST 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) Liver lesion CBC W AUTO DIFFERENTIAL Routine 03/04/2024 12:25 PM TECHNICAL CUSTOMER SUPPORT SPECIALIST 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) Liver lesion ALPHA FETOPROTEIN BLOOD TUMOR MARKER Routine 03/04/2024 12:25 PM TECHNICAL CUSTOMER SUPPORT SPECIALIST 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) Thrombocytopenia, unspecified (HCC) Metabolic syndrome US ABDOMEN LIMITED Routine 03/04/2024 10 :33 AM TECHNICAL CUSTOMER SUPPORT SPECIALIST 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) MICROALB/CREAT RATIO URINE (EXTERNAL RESULT ENTRY) Routine 11/27/2022 9:45 AM CDT HEMOGLOBIN A1C (EXTERNAL RESULT ENTRY) Routine 11/27/2022 9:45 AM CDT from Last 3 Months or Most Recently Relevant to Health Maintenance Results * PT-INR [facility] (03/04/2024 12:25 PM TECHNICAL CUSTOMER SUPPORT SPECIALIST) Pathologist [facility] PT 13.6 12.1 - 14.8 Seconds 03/04/2024 12:59 PM TECHNICAL CUSTOMER SUPPORT SPECIALIST [facility] INR 1.1 See Comment 03/04/2024 12:59 PM [facility] Comment:The suggested therap eutic range for standard coumadin (warfarin) therapy is an INR of 2.0-3.0. For high-risk patients (Mechanical Mitral Valve Prosthesis, etc.), the suggested prophylactic therapeutic range is an INR of 2.5-3.5. Blood BLOOD SPECIMEN / Unknown Lab Venipuncture / Unknown 03/04/2024 12:25 PM TECHNICAL CUSTOMER SUPPORT SPECIALIST 03/04/2024 12:34 PM TECHNICAL CUSTOMER SUPPORT SPECIALIST Anastasia Gandhi [facility] - COAGU LATION ORDERABLES Performing Organization Address [facility] [place]/[facility]/ZIP Co de Phone Number [address] [address], [place] [phone] * ALPHA FETOPROTEIN BLOOD TUMOR MARKER (03/04/2024 12:25 PM TECHNICAL CUSTOMER SUPPORT SPECIALIST) [facility] Alpha-Fetoprote in Tumor Marker 6.7 <=8.3 ng/mL 03/04/2024 1:22 PM TECHNICAL CUSTOMER SUPPORT SPECIALIST [facility] Comment: AFP values will vary depending on testing procedure used. Results are not comparable across different methods. AFP values obtained by [facility] using an Holland Alinity Immunoassay. Blood BLOOD SPECIMEN / Unknown Lab Venipuncture / Unknown 03/04/2024 12:25 PM TECHNICAL CUSTOMER SUPPORT SPECIALIST 03/04/2024 12:32 PM TECHNICAL CUSTOMER SUPPORT SPECIALIST Anastasia Gandhi FREELANCE MAKEUP [facility] - CHEMI STRY ORDERABLES Performing Organization Address [facility] [place]/[facility]/ZIP Co de Phone Number [address] [address], [place] [phone] * (ABNORMAL) CBC WITH DIFFERENTIAL (03/04/2024 12:25 PM [facility]) WBC 5.5 4.0 - 10.7 x10E9/L 03/04/2024 12:39 PM [facility] RBC Count 4.76 3.90 - 5.20 x10E12/L 03/04/2024 12:39 PM [facility] Hemoglobin 14.6 11.9 - 15.8 g/dL 03/04/2024 12:39 PM [facility] Hematocrit 45.8 34.8 - 46.1 % 03/04/2024 12:39 PM [facility] MCV 96.2 80.0 - 98.0 fL 03/04/2024 12:39 PM [facility] MCH 30.7 26.7 - 33.6 pg 03/04/2024 12:39 PM [facility] MCHC 31.9 31.7 - 36.3 g/dL 03/04/2024 12:39 PM [facility] RDW-CV 13.7 11.3 - 14.8 % 03/04/2024 12:39 PM [facility] Platelet Count 149(L) 150 - 420 x10E9/L 03/04/2024 12:39 PM [facility] MPV 9.4 7.8 - 11.4 fL 03/04/2024 12:39 PM [facility] Neutrophil % 60.8 41.0 - 74.0 % 03/04/2024 12:39 PM [facility] Lymphocyte % 26.5 17.0 - 47.0 % 03/04/2024 12:39 PM [facility] Monocyte % 9.6 3.0 - 11.0 % 03/04/2024 12:39 PM [facility] Eosinophil % 2.2 0.0 - 7.0 % 03/04/2024 12:39 PM [facility] Basophil % 0.7 0.0 - 1.6 % 03/04/2024 12:39 PM [facility] Immature Granulocytes % 0.2 0.0 - 1.0 % 03/04/2024 12:39 PM [facility] Neutrophil Absolute 3.37 1.60 - 7.50 x10E9/L 03/04/2024 12:39 PM [facility] Lymphocyte Absolute 1.47 1.00 - 4.40 x10E9/L 03/04/2024 12:39 PM [facility] Monocyte Absolute 0.53 0.15 - 1.00 x10E9/L 03/04/2024 12:39 PM [facility] Eosinophil Absolute 0.12 0.00 - 0.60 x10E9/L 03/04/2024 12:39 PM [facility] Basophil Absolute 0.04 0.00 - 0.13 x10E9/L 03/04/2024 12:39 PM [facility] Blood BLOOD SPECIMEN / Unknown Lab Venipuncture / Unknown 03/04/2024 12:25 PM TECHNICAL CUSTOMER SUPPORT SPECIALIST 03/04/2024 12:32 PM [facility] Anastasia Gandhi FREELANCE MAKEUP ARTIST-MICROBIOLOGY TECHNICIAN LAB - HEMAT OLOGY ORDERABLES Performing Organization Address City/[facility] Co de Phone Number [facility] [address] [place] [phone] [phone] * (ABNORMAL) COMPREHENSIVE METABOLIC PANEL (03/04/2024 12:25 PM TECHNICAL CUSTOMER SUPPORT SPECIALIST) BUN 16 7 - 26 mg/dL 03/04/2024 12:59 PM [facility] Creatinine 0.92 0.56 - 0.96 mg/dL 03/04/2024 12:59 PM [facility] Sodium 141 136 - 145 mmol/L 03/04/2024 12:59 PM [facility] Potassium 4.6(H) 3.5 - 4.5 mmol/L 03/04/2024 12:59 PM [facility] Chloride 106 98 - 107 mmol/L 03/04/2024 12:59 PM [facility] CO2 26 22 - 29 mmol/L 03/04/2024 12:59 PM [facility] Glucose 110(H) 70 - 99 mg/dL 03/04/2024 12:59 PM [facility] Calcium 9.7 8.4 - 10.2 mg/dL 03/04/2024 12:59 PM [facility] Protein Total 7.5 6.0 - 8.3 g/dL 03/04/2024 12:59 PM [facility] Albumin 4.0 3.4 - 5.0 g/dL 03/04/2024 12:59 PM [facility] Bilirubin Total 0.6 0.2 - 1.2 mg/dL 03/04/2024 12:59 PM [facility] Alkaline Phosphatase 51 40 - 150 U/L 03/04/2024 12:59 PM [facility] ALT 26 5 - 55 U/L 03/04/2024 12:59 PM [facility] AST 30 5 - 34 U/L 03/04/2024 12:59 PM [facility] Anion Gap 9 6 - 16 03/04/2024 12:59 PM [facility] BUN/Creatinine Ratio 17 7 - 23 03/04/2024 12:59 PM [facility] Osmolality Calculated 294 275 - 295 mOsm/kg 03/04/2024 12:59 PM [facility] Albumin/Globulin Ratio 1.1 1.1 - 2.3 03/04/2024 12:59 PM [facility] eGFR by CKD-EPI 63(L) >=90 mL/min/1.7 3 m2 03/04/2024 12:59 PM [facility] Blood BLOOD SPECIMEN / Unknown Lab Venipuncture / Unknown 03/04/2024 12:25 PM TECHNICAL CUSTOMER SUPPORT SPECIALIST 03/04/2024 12:32 PM TECHNICAL CUSTOMER SUPPORT SPECIALIST Anastasia Gandhi FREELANCE MAKEUP ARTIST-MICROBIOLOGY TECHNICIAN LAB - CHEMI STRY ORDERABLES [facility] [address] [place] [id number], [place] [phone] * US ABDOMEN LIMITED (03/04/2024 10:33 AM TECHNICAL CUSTOMER SUPPORT SPECIALIST) Anatomical Region Laterality Modality Abdomen Ultrasound 03/04/2024 10:4 5 AM TECHNICAL CUSTOMER SUPPORT SPECIALIST Impressions 03/04/2024 11:22 AM TECHNICAL CUSTOMER SUPPORT SPECIALIST Impression: 1.Liver Visualization Score A: No or minimal limitations. 2.US-2 Subthreshold. Repeat surveillance US in 3-6 months. 3.Redemonstrated hepatic cirrhosis with sequela of portal hypertension. Report drafted by Jeff Leggett MD (resident). I, Lila Pool MD have personally reviewed and interpreted this examination/study. > Interpreting Provider: Lila Pool MD on 03/04/2024 11:22 AM Narrative 03/04/2024 11:22 AM TECHNICAL CUSTOMER SUPPORT SPECIALIST PROCEDURE: US ABDOMEN LIMITED DATE/TIME OF EXAM: [...] MD on 03/04/2024 11:22 AM Anastasia Gandhi FREELANCE MAKEUP ARTIST-MICROBIOLOGY TECHNICIAN US ORDERABL ES * MICROALB/CREAT RATIO URINE [...] Recently Relevant to Health Maintenance Care Teams Knot Picker Cloth Relationship Specialty Start Date End Date Soy Joyce MD [address] [facility] [address] [place] [address] PCP - General 02/04/21
--- OUTSIDE RECORDS SUMMARY | 2024-03-21 13:50 | XMS_ITS | Continuity of Care Document ---
Author Organization [facility] [place] [address] [place] [address] [address] [place] [address] Phone Care Team Providers Care Sectional Belt Mold Assembler Name Role Phone Jurgen Diallo Unavailable Unavailable Procedures Procedure Date Post-op Follow-up Visit Post-op Follow-up Visit Remove Cataract, Insert Lens Eye Exam, New Patient Echo Exam Of Eye Advance Directives Directive Yes / No Effective Date File Name No Information Encounters Encounter Description Practice Location Reason(s) For Visit Diagnoses Date Provider Providers Copied on Encounter [facility], [address] [place] [address] [address], [place], [place], [id number], tel:[phone] [facility] No Information [address] [place] [address] , [address], [place], [place], [facility], . tel:[phone] Referring Provider: Fernie Byers, [address] [place] [address], [facility]. tel:[phone] [facility], [address] [place] [address] [address], [place], [place], [id number], tel:[phone] [facility] No Information [address] [place] [address] , [address], [place], [place], [facility], [place]. tel:[phone] Referring Provider: Fernie Byers, [address] [place] [address], [facility]. tel:[phone] [facility], [address], [place], [place], [id number], tel:[phone] [facility] No Information [facility] Edward. [address] [facility] , [address], [place], [place], [facility], . tel:[phone] Referring Provider: Fernie Byers, [address] [place] [address], [facility]. tel:[phone] [facility], [address], [place], [place], [id number], tel:[phone] [facility] No Information [facility] Ed[place]rick. [facility] , [address], [place], [place], [facility], . tel:[phone] Referring Provider: Fernie Byers, [address] [place] [address], [facility]. tel:[phone] Family History Family Member Type Diagnosis Age At Onset No Information Payers Payer name Insurance type Covered libertarian ID Authoriza tion(s) No Information Social History [...]
--- OUTSIDE RECORDS SUMMARY | 2024-03-21 13:50 | XMS_ITS | Clinical Summary ---
Author Organization [facility] Address [address] [place] [address] Care Team Providers Care Manager Field Investigations Name Role Phone Soy Joyce MD Primary [...] Type Department Care Team Description 03/12/2024 Abstract [facility] Oncology and Hematology - [place] [address] [place] [address] Danny Heart MD 03/11/2024 Telephone [facility] Hematology [address] [place] [address] Danny Heart MD Surgical Clearance [...] Body Mass Index 36.88 03/13/2021 10:16 AM PURCHASING ASSISTANT Plan of Treatment Upcoming Encounters Date Type Department Care Team (Late st Contact Info) Description 04/27/2024 11:00 AM CDT Office Visit [facility] Oncology and Hematology [facility] [address] [place] [address] Danny Heart MD [address] [facility] [address] [place] [address] Health Maintenance Due Date Last Done [...] 03/14/2021, 04/30/2020, Additional history exists Medicare Advantage (CT) Preventative Visit/Annual Wellness Visit 02/11/2024 DTAP/TDAP/TD VACCINES [...] Maintenance Insurance [employer] PPO MCR Care Teams Manager Field Investigations Relationship Specialty Start Date End Date Soy Joyce MD PCP - General Internal Medicine 12/23/17
--- OUTSIDE RECORDS SUMMARY | 2024-03-21 13:50 | XMS_ITS | Clinical Summary ---
Author Organization [facility] Address [address] [place] [address] Care Team Providers Care Detention Deputy Name Role Phone Soy Joyce MD Primary Care Provider Source Comments [facility],non-owned Affiliates and Associated Physician Practices is amultiple site organization consisting of ambulatory clinics and hospital sitesin [place], [place], [place] and [place]. This disclosure is being madepursuant to the Care Everywhere program and may not contain all information available regarding this patient. Last updated 17.[facility] Allergies No known active allergies Medications * [...] d(List Clean-Up) Cholecalciferol (vitamin D3) 1.25 MG (88142 UT) capsule Take 1 (one) capsule by [...] Telephone [facility] [address] [place] [address] Anastasia Gandhi APRN-CNP Results 03/04/2024 11:47 AM STONE RIGGER - 03/04/2024 11:59 PM STONE RIGGER Hospital Encounter [facility] OP DRAW STATION [address] [place] [address] Anastasia Gandhi, MEDICAL EQUIPMENT REPAIRER-MARY JO Discharge Disposition: Home or Self Care 03/04/2024 11:00 AM STONE RIGGER Office Visit [facility] [address] [place] [address] Anastasia Gandhi, MEDICAL EQUIPMENT REPAIRER-MARY JO 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); Metabolic dysfunction-associated steatohepatitis (MASH); Thrombocytopenia, unspecified (HCC); Metabolic syndrome 03/04/2024 10:05 AM STONE RIGGER - 03/04/2024 11:46 AM STONE RIGGER Hospital Encounter [facility] US [address] [place] [id number] Anastasia Gandhi APRN-CNP Discharge Disposition: Home or Self Care 03/04/2024 Orders Only [facility] [address] [facility] [place] [id number] Anastasia Gandhi APRN-CNP Liver cirrhosis secondary to [...] Comments Blood Pressure 133/72 03/04/2024 10:58 AM STONE RIGGER Pulse 92 03/04/2024 10:58 AM STONE RIGGER Temperature 37.2 C (99 F) 03/04/2024 10:58 AM STONE RIGGER Respiratory Rate 18 02/13/2023 10:1 3 AM STONE RIGGER Oxygen Saturation 95% 03/04/2024 10: 58 AM STONE RIGGER Inhaled Oxygen Concentration - - Weight 100.1 kg (220 lb 9.6 oz) 025 10:58 AM STONE RIGGER Height 165.1 cm (5' 5 ) 03/04/2024 10:5 8 AM STONE RIGGER Body Mass Index 36.71 03/04/2024 10:58 AM STONE RIGGER Plan of Treatment Upcoming Encounters Date Type Department Care Team (Late st Contact Info) Description 04/03/2024 9:30 AM STONE RIGGER Appointment [facility] MRI [address] [place] [phone] Anastasia Gandhi APRN-CNP [address] [facility] [address] [place] [address] Health Maintenance Due Date Last Done Comments [...] Medication Management General On track( 10:55 AM STONE RIGGER) No Lana hSultz, RN Note: Expected end date: Ongoing Interventions: Take all medications as prescribed Let your doctor know right away about any changes in your medications Make sure to request a refill of your medication at least one week prior to your last dose Safety General On track( 11:03 AM STONE RIGGER) No Neida Javed, RN Note: Expected end [...] Name Priority Date/Time Associated Diagnosis Comments PT-INR [facility] Routine 03/04/2024 12:25 PM STONE RIGGER 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) Liver lesion COMPREHENSIVE METABOLIC PANEL Routine 03/04/2024 12:25 PM STONE RIGGER 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) Liver lesion CBC W AUTO DIFFERENTIAL Routine 03/04/2024 12:25 PM STONE RIGGER 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) Liver lesion ALPHA FETOPROTEIN BLOOD TUMOR MARKER Routine 03/04/2024 12:25 PM STONE RIGGER 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) Thrombocytopenia, unspecified (HCC) Metabolic syndrome US ABDOMEN LIMITED Routine 03/04/2024 10 :33 AM STONE RIGGER 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) MICROALB/CREAT RATIO URINE (EXTERNAL RESULT ENTRY) Routine 11/27/2022 9:45 AM CDT HEMOGLOBIN A1C (EXTERNAL RESULT ENTRY) Routine 11/27/2022 9:45 AM CDT from Last 3 Months or Most Recently Relevant to Health Maintenance Results * PT-INR [facility] (03/04/2024 12:25 PM STONE RIGGER) PT 13.6 12.1 - 14.8 Seconds 03/04/2024 12:59 PM STONE RIGGER [facility] INR 1.1 See Comment 03/04/2024 12:59 PM STONE RIGGER [facility] Comment:The suggested therap eutic range for standard coumadin (warfarin) therapy is an INR of 2.0-3.0. For high-risk patients (Mechanical Mitral Valve Prosthesis, etc.), the suggested prophylactic therapeutic range is an INR of 2.5-3.5. Blood BLOOD SPECIMEN / Unknown Lab Venipuncture / Unknown 03/04/2024 12:25 PM STONE RIGGER 03/04/2024 12:34 PM STONE RIGGER [facility] - COAGU LATION ORDERABLES Performing Organization Address City/[facility]/ZIP Co de Phone Number [address] [address], [facility] [phone] * ALPHA FETOPROTEIN BLOOD TUMOR MARKER (03/04/2024 12:25 PM STONE RIGGER) [facility] Alpha-Fetoprote in Tumor Marker 6.7 <=8.3 ng/mL 03/04/2024 1:22 PM [facility] Comment: AFP values will vary depending on testing procedure used. Results are not comparable across different methods. AFP values obtained by [facility] using an [employer] Immunoassay. Blood BLOOD SPECIMEN / Unknown Lab Venipuncture / Unknown 03/04/2024 12:25 PM STONE RIGGER 03/04/2024 12:32 PM STONE RIGGER Anastasia Gandhi MEDICAL EQUIPMENT [facility] - CHEMI STRY ORDERABLES Performing Organization Address City/[facility]/ZIP Co de Phone Number [address] [address], [place] [phone] * (ABNORMAL) CBC WITH DIFFERENTIAL (03/04/2024 12:25 PM STONE RIGGER) [facility] WBC 5.5 4.0 - 10.7 x10E9/L 03/04/2024 12:39 PM STONE RIGGER [facility] RBC Count 4.76 3.90 - 5.20 x10E12/L 03/04/2024 12:39 PM [facility] Hemoglobin 14.6 11.9 - 15.8 g/dL 03/04/2024 12:39 PM [facility] Hematocrit 45.8 34.8 - 46.1 % 03/04/2024 12:39 PM [facility] MCV 96.2 80.0 - 98.0 fL 03/04/2024 12:39 PM [facility] MCH 30.7 26.7 - 33.6 pg 03/04/2024 12:39 PM [facility] MCHC 31.9 31.7 - 36.3 g/dL 03/04/2024 12:39 PM [facility] RDW-CV 13.7 11.3 - 14.8 % 03/04/2024 12:39 PM [facility] Platelet Count 149(L) 150 - 420 x10E9/L 03/04/2024 12:39 PM [facility] MPV 9.4 7.8 - 11.4 fL 03/04/2024 12:39 PM [facility] Neutrophil % 60.8 41.0 - 74.0 % 03/04/2024 12:39 PM [facility] Lymphocyte % 26.5 17.0 - 47.0 % 03/04/2024 12:39 PM [facility] Monocyte % 9.6 3.0 - 11.0 % 03/04/2024 12:39 PM [facility] Eosinophil % 2.2 0.0 - 7.0 % 03/04/2024 12:39 PM [facility] Basophil % 0.7 0.0 - 1.6 % 03/04/2024 12:39 PM [facility] Immature Granulocytes % 0.2 0.0 - 1.0 % 03/04/2024 12:39 PM [facility] Neutrophil Absolute 3.37 1.60 - 7.50 x10E9/L 03/04/2024 12:39 PM [facility] Lymphocyte Absolute 1.47 1.00 - 4.40 x10E9/L 03/04/2024 12:39 PM [facility] Monocyte Absolute 0.53 0.15 - 1.00 x10E9/L 03/04/2024 12:39 PM [facility] Eosinophil Absolute 0.12 0.00 - 0.60 x10E9/L 03/04/2024 12:39 PM [facility] Basophil Absolute 0.04 0.00 - 0.13 x10E9/L 03/04/2024 12:39 PM [facility] Blood BLOOD SPECIMEN / Unknown Lab Venipuncture / Unknown 03/04/2024 12:25 PM STONE RIGGER 03/04/2024 12:32 PM [facility] Anastasia Gandhi MEDICAL EQUIPMENT REPAIRER-PAN HELPER LAB - HEMAT OLOGY ORDERABLES [facility] [address] [place] [address], [facility] [phone] * (ABNORMAL) COMPREHENSIVE METABOLIC PANEL (03/04/2024 12:25 PM [facility]) BUN 16 7 - 26 mg/dL 03/04/2024 12:59 PM [facility] Creatinine 0.92 0.56 - 0.96 mg/dL 03/04/2024 12:59 PM [facility] Sodium 141 136 - 145 mmol/L 03/04/2024 12:59 PM [facility] Potassium 4.6(H) 3.5 - 4.5 mmol/L 03/04/2024 12:59 PM [facility] Chloride 106 98 - 107 mmol/L 03/04/2024 12:59 PM [facility] CO2 26 22 - 29 mmol/L 03/04/2024 12:59 PM [facility] Glucose 110(H) 70 - 99 mg/dL 03/04/2024 12:59 PM [facility] Calcium 9.7 8.4 - 10.2 mg/dL 03/04/2024 12:59 PM [facility] Protein Total 7.5 6.0 - 8.3 g/dL 03/04/2024 12:59 PM [facility] Albumin 4.0 3.4 - 5.0 g/dL 03/04/2024 12:59 PM [facility] Bilirubin Total 0.6 0.2 - 1.2 mg/dL 03/04/2024 12:59 PM [facility] Alkaline Phosphatase 51 40 - 150 U/L 03/04/2024 12:59 PM [facility] ALT 26 5 - 55 U/L 03/04/2024 12:59 PM [facility] AST 30 5 - 34 U/L 03/04/2024 12:59 PM [facility] Anion Gap 9 6 - 16 03/04/2024 12:59 PM [facility] BUN/Creatinine Ratio 17 7 - 23 03/04/2024 12:59 PM [facility] Osmolality Calculated 294 275 - 295 mOsm/kg 03/04/2024 12:59 PM [facility] Albumin/Globulin Ratio 1.1 1.1 - 2.3 03/04/2024 12:59 PM [facility] eGFR by CKD-EPI 63(L) >=90 mL/min/1.7 3 m2 03/04/2024 12:59 PM [facility] Blood BLOOD SPECIMEN / Unknown Lab Venipuncture / Unknown 03/04/2024 12:25 PM STONE RIGGER 03/04/2024 12:32 PM STONE RIGGER Anastasia Jannie Gandhi MEDICAL EQUIPMENT REPAIRER-PAN HELPER LAB - CHEMI STRY ORDERABLES [facility] [address] [place] [address], [facility] [phone] * US ABDOMEN LIMITED (03/04/2024 10:33 AM STONE RIGGER) Anatomical Region Laterality Modality Abdomen Ultrasound 03/04/2024 10:4 5 AM STONE RIGGER Impressions 03/04/2024 11:22 AM STONE RIGGER Impression: 1.Liver Visualization Score A: No or minimal limitations. 2.US-2 Subthreshold. Repeat surveillance US in 3-6 months. 3.Redemonstrated hepatic cirrhosis with sequela of portal hypertension. Report drafted by Jeff Leggett MD (resident). I, Lila Pool MD have personally reviewed and interpreted this examination/study. > Interpreting Provider: Lila Pool MD on 03/04/2024 11:22 AM Narrative 03/04/2024 11:22 AM STONE RIGGER PROCEDURE: US ABDOMEN LIMITED DATE/TIME OF EXAM: [...] MD on 03/04/2024 11:22 AM Anastasia Gandhi MEDICAL EQUIPMENT REPAIRER-PAN HELPER US ORDERABL ES * MICROALB/CREAT RATIO URINE [...] Recently Relevant to Health Maintenance Care Teams Detention Deputy Relationship Specialty Start Date End Date Soy Joyce MD [address] [facility] [address] [place] [address] PCP - General 02/04/21
--- OUTSIDE RECORDS SUMMARY | 2024-03-21 13:50 | XMS_ITS | CONTINUITY OF CARE DOCUMENT ---
Author Name amira collier Address Unknown Organization [facility] Address [address] [place] [address] Phone [phone] Care Team Providers Care Weatherization Field Technician Name Role Phone Stacy Auguste MD Unavailable ADITYA LOPEZ MD Unavailable [phone] ADITYA LOPEZ MD Unavailable [phone] PROBLEMS Condition Status Date Provider Notes Family [...] In-person encounter Office Visit Stacy Auguste MD [facility] - In-person encounter Office Visit Stacy Auguste MD [facility] - In-person encounter Office Visit Stacy Auguste MD [facility] - In-person encounter Office Visit Stacy Auguste MD [facility] Shortness of breath with exertion - In-person encounter Office Visit Stacy Auguste MD [facility] - In-person encounter Office Visit Stacy Auguste MD [facility] Diabetes mellitus - In-person encounter Office Visit Stacy Auguste MD [facility] - In-person encounter Office Visit Stacy Auguste MD [facility] Venous insufficiency - In-person encounter Office Visit Stacy Auguste MD [facility] Family History of CVA or Stroke:Family History of Hyperlipidemia:Family History of Hypertension:Family History of Hyperlipidemia:Family History of Hypertension:MINA - On CPAPHTN essential - In-person encounter Office Visit Stacy Auguste MD [facility] HTN essential - In-person encounter Office Visit Stacy Auguste MD [facility] HypothyroidismOSA - On CPAPHyperlipidemiaHx of DVT, [...] Mass Index (Ratio) 37.27 kg/m2 Bhavin edu uKo blood pressure, call tolic, second observation 73 [...] MD blood pressure, diastolic 70 mm[Hg] Mp [facility] blood pressure, systolic 130 mm[Hg] Missy shearer Conway oxygen saturation, oximetry 97 % [facility] respiratory rate E&M 16 /min [facility] pulse [facility] 79 /min [facility] weight E&M 227 [lb_av] Tatum Mendiola height E&M 65 [in_i] [facility] Body Mass Index (Ratio) 37.60 kg/m2 Alexander Auguste MD blood pressure, diastolic 80 mm[Hg] Mp [facility] blood pressure, systolic 140 mm[Hg] Missy shearer Conway oxygen saturation, oximetry 95 % [facility] respiratory rate E&M 16 /min Kirksey Mendiola pulse rate 96 /min Tatum Mendiola weight E&M 226 [lb_av] Tatum Mendiola height E&M 65 [in_i] Tatum Mendiola Body Mass Index (Ratio) 39.43 kg/m2 Nguyen ssa Puhse blood pressure, diastolic 88 mm[Hg] Da salas Jurgen blood pressure, systolic 168 mm[Hg] Dac ia Jurgen oxygen saturation, oximetry 94 % Rosanna Gorham respiratory rate E&M 16 /min Rosanna V oss pulse rate 99 /min Rosanna Gorham weight E&M 237 [lb_av] Rosanna Jurgen height E&M 65 [in_i] [facility] Body Mass Index (Ratio) 38.44 kg/m2 [...] 8 LDL cholesterol, serum 96 mg/dL Stacy uAguste MD HISTORY OF MEDICATION USE Medication Status [...] Allergy Relief 50 mcg/actuation spray,suspensio n active [place] into both nostrils twice a day Marla Li alprazolam 0.25 mg tablet active Take 1 tablet by mouth once a day as needed Frances Ellison VITAMIN D (ERGOCALCIFEROL ) [id number] UNIT ORAL CAPSULE completed Take once a [...] Payer name Policy type / Coverage type [place] red democrat ID [facility] MEDICARE ADVANTAGE (PPO) Other [id number] ADVANCE DIRECTIVES Name Date POWER OF TECHNICAL 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 We aim for an LDL <70. Stacy Auguste MD [id number],C,T he patient is using CPAP on a regular basis. The patient has been benefiting from therapy and should continue use. Stacy Auguste MD [id number],C,On levothyrox ine. Stacy Auguste MD [id number],C,On metformin 500mg BID. Stacy Auguste MD [id number],C,B P elevated, dietary compliance stressed. Also asked her to increase lisinopril to 10mg daily, and monitor BP on a regular basis. Stacy Auguste MD [id number],C, W eight loss advised Stacy Auguste MD [id number],C, C ontinues on replacement therapy. Stacy Auguste MD [id number],C, C ontinues on Rosuvastatin. We aim for an LDL <70. Stacy Auguste MD [id number],C, C ontinues on Metformin. Stacy Auguste MD [id number],C, H er echo 08/24/2020 showed normal LV function. EF 60%. Nuclear stress test 08/24/2020 showed normal perfusion. The patient has been reassured. Weight reduction advised. Stacy Auguste MD [id number],C, B P today elevated at 150/83. Advised she monitor at home. Stacy Auguste MD [id number],C, A bdominal US 06/2020 showed nodular liver contour suggesting cirrhosis. Follows with [facility] at [facility] whose name she cannot recall. Will obtain bloodwork from PCP. Stacy Auguste MD [id number],C,T he patient is using CPAP on a regular basis. The patient has been benefiting from therapy and should continue use. Stacy Auguste MD [id number],C,C ontinues on Metformin. Stacy Auguste MD [id number],C,C ontinues on Rosuvastatin. We aim for an LDL <70. Stacy Auguste MD [id number],C,B P control is satisfactory. Stacy Auguste MD [id number],C,H er recent echo 08/24/2020 showed normal LV [...] patient has been reassured. Weight reduction advised. Satcy Auguste MD Cardiology: B P today elevated at 150/83. Advised she monitor at home. Stacy Auguste MD Cardiology: A bdominal US 06/2020 showed nodular liver contour suggesting cirrhosis. Follows with FORM RAISER at [facility] whose name she cannot recall. Will [...]
--- NOTE | 2024-03-21 13:51 | ED_ITS ---
HPI - Extremity Problem General Chief complaint: Extremity Problem,Nontraumatic Stated complaint: shoulder pain Time Seen by Provider: 03/21/24 13:43 History of Present Illness HPI Narrative: 79-year-old female presenting to the emergency room with acute on chronic right- sided shoulder pain. She has been evaluated on outpatient basis by Dr. Leyva and Dr. Ramos with plan for upcoming right total shoulder arthroplasty. She is she has failed conservative therapies including oral pain control medications, physical therapy, occupational therapy. Patient states she had a recent MRI with surgical planning in the next few weeks. Is being cleared by her regular doctors on outpatient basis in the next week with laboratory studies and EKG. Today patient states that she was having slightly worse pain than usual but denies any new injury or fall. She rates her pain 3/10 when she is not moving and 5/10 when she is moving. She wears a sling for comfort and applies ice with improvement. Patient is requesting a injection for symptom control. 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 Related Data Home Medications ?Medication ?Instructions ?Recorded ?Confirmed ?Last Taken ?Type levothyroxine 150 mcg capsule 150 mcg PO DAILY 05/22/23 01/25/24 Unknown History lisinopril 2.5 mg tablet 2.5 mg PO DAILY 05/22/23 01/25/24 Unknown History metoprolol succinate 25 mg 25 mg PO DAILY 05/22/23 01/25/24 Unknown History tablet,extended release 24 hr multivitamin (One Daily 1 tablet PO DAILY 05/22/23 01/25/24 Unknown History Multivitamin tablet) rosuvastatin 20 mg tablet 20 mg PO DAILY 05/22/23 01/25/24 Unknown History semaglutide 0.25 mg or 0.5 mg (2 0.25 mg subcut WEEKLY 05/22/23 01/25/24 Unknown History mg/3 mL) subcutaneous pen injector ([employer]) venlafaxine 75 mg capsule,extended 75 mg PO DAILY 05/22/23 01/25/24 Unknown History release 24 hr diclofenac sodium 75 mg 75 mg PO BID 11/11/23 01/25/24 Unknown History tablet,delayed release Allergies Allergy/AdvReac Type Severity Reaction Status Date / Time No Known Allergies Allergy Verified 03/21/24 13:20 Review of Systems Review of Systems: As reviewed above in [facility] Past Medical History Medical History History of cataract Hyperlipemia Hypertension Surgical History Surgical History History of knee surgery History of hernia repair History of cholecystectomy History of carpal tunnel release left History of elbow surgery left History of tonsillectomy Family History Family History Grandparent Breast cancer Father Hypertension Asthma Blood clot in leg Cerebrovascular accident Mother Hypertension Blood clot in leg Sibling No problems noted. 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 Mucous membranes moist. NECK: Supple. CHEST: [Clear to auscultation. No respiratory distress.] HEART: [Regular rate and rhythm]. No murmur heard. [Normal peripheral pulses.] ABDOMEN: [Soft, nondistended], [nontender], [No rigidity or guarding] EXTREMITIES: Her right upper extremity is in a sling for comfort with painful limited range of motion and tenderness over the anterior lateral AC joint. No o verlying skin changes, effusions, warmth or erythema. 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 Normal radial pulse. Intact sensation. No cervical or thoracic tenderness. SKIN: Warm, dry, no rash. NEURO: [No focal deficits]. Alert and oriented [x3.] PSYCH: [Normal mood and affect.] Course Vital Signs Vital signs: Vital Signs Temperature 36.2 C L 03/21/24 13:24 Pulse Rate 113 H 03/21/24 13:24 Respiratory Rate 16 03/21/24 13:24 Blood Pressure 148/108 H 03/21/24 13:24 Pulse Oximetry 96 03/21/24 13:24 Oxygen Delivery Room Air 03/21/24 13:24 Temperature 36.2 C L 03/21/24 13:24 Pulse Rate 113 H 03/21/24 13:24 Respiratory Rate 16 03/21/24 13:24 Blood Pressure 148/108 H 03/21/24 13:24 Pulse Oximetry 96 03/21/24 13:24 Oxygen Delivery Room Air 03/21/24 13:24 MDM - Extremity (Nontraumatic) MDM Narrative Medical decision making narrative: 79-year-old female with history of advanced degenerative arthritis in her right shoulder with acute on chronic shoulder pain today. Denies any new injuries or other concerns. Rates her pain 3/10 at rest and 5/10 with activity. Wears a sling for comfort. Has good radial pulse, good distal neuro vasculature, intact strength in the hand and elbow. Tenderness with painful manipulation of the right shoulder. She has seen Dr. Leyva and Dr. Ramos from Orthopedics on an outpatient basis, failed physical therapy with plans for total shoulder arthroplasty in the next few weeks. Patient is requesting pain control today with a muscle injection. Patient overall is well appearing, has no concerning physical exam findings for an acute injury. Patient was provided Toradol intramuscular injection and given discharge instructions and return precautions. Patient felt comfortable with this plan and safely discharged at this time. Discharge Plan Discharge Clinical Impression: Degenerative joint disease of right shoulder, Chronic right shoulder pain Patient Disposition: Home, Self-Care Condition: Stable Instructions: Antibiotic Form, Arthritis (ED) Additional Instructions: Follow-up with your personnel specialist on outpatient basis, return if you have any new or worsening concerns at any time. Patient Language: Malay Prescriptions: No Action levothyroxine 150 mcg capsule 150 mcg PO DAILY lisinopril 2.5 mg tablet 2.5 mg PO DAILY metoprolol succinate 25 mg tablet extended release 24 hr 25 mg PO DAILY rosuvastatin 20 mg tablet 20 mg PO DAILY venlafaxine 75 mg capsule,extended release 24hr 75 mg PO DAILY Ozempic 0.25 mg or 0.5 mg (2 mg/3 mL) pen injector 0.25 mg subcut WEEKLY Rx Instructions: for 4 weeks multivitamin [One Daily Multivitamin] Tablet 1 tablet PO DAILY diclofenac sodium 75 mg tablet,delayed release (DR/EC) 75 mg PO BID diclofenac sodium 75 mg tablet,delayed release (DR/EC) 75 mg PO BID Qty: 60 0RF Follow-up/Referrals: Maria Del Carmen,MD Soy [Primary Care Provider] - Time of Disposition: 14:02
[2024-03-21] MEDS: KETOROLAC 30 MG/ML VIAL (*BKC) IM (14:05)
== END 2024-03-21 14:23 | disposition home or self-care (01) ==
PROVIDERS: Emergency Provider Student in an Organized Health Care Education/Training Program; PCP Internal Medicine
DX: M19.011 Primary osteoarthritis, right shoulder (principal); G89.29 Other chronic pain; I10 Essential (primary) hypertension; E78.5 Hyperlipidemia, unspecified; Z90.49 Acquired absence of other specified parts of digestive tract; Z77.22 Contact with and (suspected) exposure to environmental tobacco smoke (acute) (chronic); Z79.899 Other long term (current) drug therapy
CPT/HCPCS: 96372; 99283; J1885

== ENCOUNTER 2024-03-24 08:50 | Outpatient (CLI) | payer MEDICARE, SELFPAY ==
--- OUTSIDE RECORDS SUMMARY | 2024-03-24 09:24 | XMS_ITS | Clinical Summary ---
Author Organization [facility] Address [address] [place] [address] Care Team Providers Care Spooling Supervisor Name Role Phone Soy Joyce MD Primary Care Provider Source Comments [facility],non-owned Affiliates and Associated Physician Practices is amultiple site organization consisting of ambulatory clinics and hospital sitesin [place], [place], [place] and [place]. This disclosure is being madepursuant to the Care Everywhere program and may not contain all information available regarding this patient. Last updated 17.[facility] Allergies No known active allergies Medications * [...] d(List Clean-Up) Cholecalciferol (vitamin D3) 1.25 MG (69136 UT) capsule Take 1 (one) capsule by [...] Telephone [facility] [address] [place] [address] Anastasia Gandhi APRN-CNP Results 03/04/2024 11:47 AM REGISTRY NP - 03/04/2024 11:59 PM REGISTRY NP Hospital Encounter [facility] OP DRAW STATION [address] [place] [address] Anastasia Gandhi, ACCESS DIRECTOR-MARY JO Discharge Disposition: Home or Self Care 03/04/2024 11:00 AM REGISTRY NP Office Visit [facility] [address] [place] [address] Anastasia Gandhi, ACCESS DIRECTOR-MARY JO 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); Metabolic dysfunction-associated steatohepatitis (MASH); Thrombocytopenia, unspecified (HCC); Metabolic syndrome 03/04/2024 10:05 AM REGISTRY NP - 03/04/2024 11:46 AM REGISTRY NP Hospital Encounter [facility] US [address] [place] [phone] Anastasia Gandhi APRN-CNP Discharge Disposition: Home or Self Care 03/04/2024 Orders Only [facility] [address] [place] [phone] Anastasia Gandhi APRN-CNP Liver cirrhosis secondary to [...] Comments Blood Pressure 133/72 03/04/2024 10:58 AM REGISTRY NP Pulse 92 03/04/2024 10:58 AM REGISTRY NP Temperature 37.2 C (99 F) 03/04/2024 10:58 AM REGISTRY NP Respiratory Rate 18 02/13/2023 10:1 3 AM REGISTRY NP Oxygen Saturation 95% 03/04/2024 10: 58 AM REGISTRY NP Inhaled Oxygen Concentration - - Weight 100.1 kg (220 lb 9.6 oz) 025 10:58 AM REGISTRY NP Height 165.1 cm (5' 5 ) 03/04/2024 10:5 8 AM REGISTRY NP Body Mass Index 36.71 03/04/2024 10:58 AM REGISTRY NP Plan of Treatment Upcoming Encounters Date Type Department Care Team (Late st Contact Info) Description 04/03/2024 9:30 AM REGISTRY NP Appointment [facility] MRI [address] [place] [phone] Anastasia Gandhi APRN-CNP [address] [facility] [address] DIV [place] [address] Health Maintenance Due Date Last Done Comments [...] Medication Management General On track( 10:55 AM REGISTRY NP) No Lana Shultz, RN Note: Expected end date: Ongoing Interventions: Take all medications as prescribed Let your doctor know right away about any changes in your medications Make sure to request a refill of your medication at least one week prior to your last dose Safety General On track( 11:03 AM REGISTRY NP) No Neida Javed, RN Note: Expected end [...] Name Priority Date/Time Associated Diagnosis Comments PT-INR [facility] Routine 03/04/2024 12:25 PM REGISTRY NP 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) Liver lesion COMPREHENSIVE METABOLIC PANEL Routine 03/04/2024 12:25 PM REGISTRY NP 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) Liver lesion CBC W AUTO DIFFERENTIAL Routine 03/04/2024 12:25 PM REGISTRY NP 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) Liver lesion ALPHA FETOPROTEIN BLOOD TUMOR MARKER Routine 03/04/2024 12:25 PM REGISTRY NP 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) Thrombocytopenia, unspecified (HCC) Metabolic syndrome US ABDOMEN LIMITED Routine 03/04/2024 10 :33 AM REGISTRY NP 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) MICROALB/CREAT RATIO URINE (EXTERNAL RESULT ENTRY) Routine 11/27/2022 9:45 AM CDT HEMOGLOBIN A1C (EXTERNAL RESULT ENTRY) Routine 11/27/2022 9:45 AM CDT from Last 3 Months or Most Recently Relevant to Health Maintenance Results * PT-INR [facility] (03/04/2024 12:25 PM REGISTRY NP) PT 13.6 12.1 - 14.8 Seconds 03/04/2024 12:59 PM REGISTRY NP [facility] INR 1.1 See Comment 03/04/2024 12:59 PM REGISTRY NP [facility] Comment:The suggested therap eutic range for standard coumadin (warfarin) therapy is an INR of 2.0-3.0. For high-risk patients (Mechanical Mitral Valve Prosthesis, etc.), the suggested prophylactic therapeutic range is an INR of 2.5-3.5. Blood BLOOD SPECIMEN / Unknown Lab Venipuncture / Unknown 03/04/2024 12:25 PM REGISTRY NP 03/04/2024 12:34 PM REGISTRY NP [facility]astasia [facility] - COAGU LATION ORDERABLES Performing Organization Address City/[facility]/ZIP Co de Phone Number [address] [address], [facility] [phone] * ALPHA FETOPROTEIN BLOOD TUMOR MARKER (03/04/2024 12:25 PM REGISTRY NP) [facility] Alpha-Fetoprote in Tumor Marker 6.7 <=8.3 ng/mL 03/04/2024 1:22 PM [facility] Comment: AFP values will vary depending on testing procedure used. Results are not comparable across different methods. AFP values obtained by [facility] using an [employer]nity Immunoassay. Blood BLOOD SPECIMEN / Unknown Lab Venipuncture / Unknown 03/04/2024 12:25 PM REGISTRY NP 03/04/2024 12:32 PM REGISTRY NP Anastasia Gandhi [facility] - CHEMI STRY ORDERABLES Performing Organization Address City/[facility]/ZIP Co de Phone Number [address] [address], [place] [phone] * (ABNORMAL) CBC WITH DIFFERENTIAL (03/04/2024 12:25 PM REGISTRY NP) [facility] WBC 5.5 4.0 - 10.7 x10E9/L 03/04/2024 12:39 PM REGISTRY NP [facility] RBC Count 4.76 3.90 - 5.20 x10E12/L 03/04/2024 12:39 PM [facility] Hemoglobin 14.6 11.9 - 15.8 g/dL 03/04/2024 12:39 PM [facility] Hematocrit 45.8 34.8 - 46.1 % 03/04/2024 12:39 PM [facility] MCV 96.2 80.0 - 98.0 fL 03/04/2024 12:39 PM [facility] MCH 30.7 26.7 - 33.6 pg 03/04/2024 12:39 PM [facility] MCHC 31.9 31.7 - 36.3 g/dL 03/04/2024 12:39 PM [facility] RDW-CV 13.7 11.3 - 14.8 % 03/04/2024 12:39 PM [facility] Platelet Count 149(L) 150 - 420 x10E9/L 03/04/2024 12:39 PM [facility] MPV 9.4 7.8 - 11.4 fL 03/04/2024 12:39 PM [facility] Neutrophil % 60.8 41.0 - 74.0 % 03/04/2024 12:39 PM [facility] Lymphocyte % 26.5 17.0 - 47.0 % 03/04/2024 12:39 PM [facility] Monocyte % 9.6 3.0 - 11.0 % 03/04/2024 12:39 PM [facility] Eosinophil % 2.2 0.0 - 7.0 % 03/04/2024 12:39 PM [facility] Basophil % 0.7 0.0 - 1.6 % 03/04/2024 12:39 PM [facility] Immature Granulocytes % 0.2 0.0 - 1.0 % 03/04/2024 12:39 PM [facility] Neutrophil Absolute 3.37 1.60 - 7.50 x10E9/L 03/04/2024 12:39 PM [facility] Lymphocyte Absolute 1.47 1.00 - 4.40 x10E9/L 03/04/2024 12:39 PM [facility] Monocyte Absolute 0.53 0.15 - 1.00 x10E9/L 03/04/2024 12:39 PM [facility] Eosinophil Absolute 0.12 0.00 - 0.60 x10E9/L 03/04/2024 12:39 PM [facility] Basophil Absolute 0.04 0.00 - 0.13 x10E9/L 03/04/2024 12:39 PM [facility] Blood BLOOD SPECIMEN / Unknown Lab Venipuncture / Unknown 03/04/2024 12:25 PM REGISTRY NP 03/04/2024 12:32 PM [facility] Anastasia Gandhi ACCESS DIRECTOR-CARDROOM SUPERVISOR LAB - HEMAT OLOGY ORDERABLES [facility] [address] [place] [address], [facility] [phone] * (ABNORMAL) COMPREHENSIVE METABOLIC PANEL (03/04/2024 12:25 PM [facility]) BUN 16 7 - 26 mg/dL 03/04/2024 12:59 PM [facility] Creatinine 0.92 0.56 - 0.96 mg/dL 03/04/2024 12:59 PM [facility] Sodium 141 136 - 145 mmol/L 03/04/2024 12:59 PM [facility] Potassium 4.6(H) 3.5 - 4.5 mmol/L 03/04/2024 12:59 PM [facility] Chloride 106 98 - 107 mmol/L 03/04/2024 12:59 PM [facility] CO2 26 22 - 29 mmol/L 03/04/2024 12:59 PM [facility] Glucose 110(H) 70 - 99 mg/dL 03/04/2024 12:59 PM [facility] Calcium 9.7 8.4 - 10.2 mg/dL 03/04/2024 12:59 PM [facility] Protein Total 7.5 6.0 - 8.3 g/dL 03/04/2024 12:59 PM [facility] Albumin 4.0 3.4 - 5.0 g/dL 03/04/2024 12:59 PM [facility] Bilirubin Total 0.6 0.2 - 1.2 mg/dL 03/04/2024 12:59 PM [facility] Alkaline Phosphatase 51 40 - 150 U/L 03/04/2024 12:59 PM [facility] ALT 26 5 - 55 U/L 03/04/2024 12:59 PM [facility] AST 30 5 - 34 U/L 03/04/2024 12:59 PM [facility] Anion Gap 9 6 - 16 03/04/2024 12:59 PM [facility] BUN/Creatinine Ratio 17 7 - 23 03/04/2024 12:59 PM [facility] Osmolality Calculated 294 275 - 295 mOsm/kg 03/04/2024 12:59 PM [facility] Albumin/Globulin Ratio 1.1 1.1 - 2.3 03/04/2024 12:59 PM [facility] eGFR by CKD-EPI 63(L) >=90 mL/min/1.7 3 m2 03/04/2024 12:59 PM [facility] Blood BLOOD SPECIMEN / Unknown Lab Venipuncture / Unknown 03/04/2024 12:25 PM REGISTRY NP 03/04/2024 12:32 PM REGISTRY NP Anastasia Jannie Gandhi ACCESS DIRECTOR-CARDROOM SUPERVISOR LAB - CHEMI STRY ORDERABLES [facility] [address] [place] [address], [facility] [phone] * US ABDOMEN LIMITED (03/04/2024 10:33 AM REGISTRY NP) Anatomical Region Laterality Modality Abdomen Ultrasound 03/04/2024 10:4 5 AM REGISTRY NP Impressions 03/04/2024 11:22 AM REGISTRY NP Impression: 1.Liver Visualization Score A: No or minimal limitations. 2.US-2 Subthreshold. Repeat surveillance US in 3-6 months. 3.Redemonstrated hepatic cirrhosis with sequela of portal hypertension. Report drafted by Jeff Leggett MD (resident). I, Lila Pool MD have personally reviewed and interpreted this examination/study. > Interpreting Provider: Lila Pool MD on 03/04/2024 11:22 AM Narrative 03/04/2024 11:22 AM REGISTRY NP PROCEDURE: US ABDOMEN LIMITED DATE/TIME OF EXAM: [...] MD on 03/04/2024 11:22 AM Anastasia Gandhi ACCESS DIRECTOR-CARDROOM SUPERVISOR US ORDERABL ES * MICROALB/CREAT RATIO URINE [...] Recently Relevant to Health Maintenance Care Teams Spooling Supervisor Relationship Specialty Start Date End Date Soy Joyce MD [address] [facility] [address] [place] [address] PCP - General 02/04/21
--- OUTSIDE RECORDS SUMMARY | 2024-03-24 09:24 | XMS_ITS | Clinical Summary ---
Author Organization [facility] Facility Address [address] [place] [address] Care Team Providers Care Management Intern Name Role Phone Soy Joyce MD Primary Care Provider [phone] Medications olmesartan (BENICAR) 5 MG tablet Take 1 tablet (5 mg total) by mouth 1 (one) time each day 90 tablet 1 12/30/2023 Active Encounters Date Type Department Care Team Description 03/05/2024 Documentation Only [facility] [employer] [facility], [address] [address] Antwan Arora DO 03/03/2024 Documentation Only [place] [employer] [facility], [address] [address] Antwan Arora DO 03/02/2024 4:00 PM WHIPPED TOPPING MIXER Office Visit [place] [employer] [facility], [address] [place] [address] Antwan Arora DO Stage 3a chronic kidney disease (HCC) (Primary Dx); Persistent proteinuria; Obstructive sleep apnea syndrome; Hepatic fibrosis with hepatic sclerosis; Hypertensive chronic kidney disease; Type 2 diabetes mellitus with diabetic chronic kidney disease (HCC); Pure hypercholesterolemia, not otherwise specified; Other specified hypothyroidism 03/02/2024 Documentation Only [place] [employer] [facility], [address] [phone] Antwan Arora DO 03/02/2024 Documentation Only [address] [phone] Antwan Arora DO 02/06/2024 Documentation Only [address] [phone] Antwan Arora DO 12/30/2023 2:00 PM WHIPPED TOPPING MIXER Office Visit [facility] [address] [address] Antwan Arora DO Stage 3a chronic kidney disease (HCC) (Primary Dx); Persistent proteinuria; Obstructive sleep apnea syndrome; Hepatic fibrosis with hepatic sclerosis; Hypertensive chronic kidney disease; Type 2 diabetes mellitus with diabetic chronic kidney disease (HCC); Pure hypercholesterolemia, not otherwise specified; Other specified hypothyroidism 12/30/[address] [facility] [address] [address] Liv Lynch CMA from Last [...] Comments Blood Pressure 110/60 03/02/2024 3:49 PM [employer] Pulse 68 03/02/2024 3:49 PM WHIPPED [employer]PING M[employer]ER Temperature 36.7 C (98 F) 03/02/2024 3:49 PM [employer] Respiratory Rate 18 03/02/2024 3:49 PM [employer] Oxygen Saturation 97% 03/02/2024 3:49 PM [employer] Inhaled Oxygen Concentration - - Weight 99.3 kg (219 lb) 03/02/2024 3:49 PM WHIPPED TOPPING MIXER Height - - Body Mass Index - - Plan of Treatment Upcoming Encounters Date Type Department Care Team (Late st Contact Info) Description 08/31/2024 12:30 PM CDT Office Visit [facility] [address] [facility] [address] [place] [address] Antwan Arora DO [address] [place] [phone] Health Maintenance Due Date Last Done Comments Hepatitis B Vaccine (1 of 3 - Risk 3-dose series) 2003 Influenza Vaccine (#1) 2023 0, 12/11/2018, 12/01/2017, Additional history exists Diabetes: Hemoglobin A1C 10/28/2023 Diabetes: Ophthalmology Exam 10/28/2023 Diabetes: Pedal Pulse Checked 10/28/2023 Diabetes: Sensory Foot Exam 10/28/2023 Diabetes: Visual Foot Exam 10/28/2023 Pneumococcal Vaccine: 65+ Years Completed 9, 03/17/2017 Insurance [employer] MCR ADV PPO ([id number]) Advance Directives Documents on File Type Date Recorded Patient Care Transitions Manager Expl anation Advance Care Planning 01/02/2024 12:13 PM Care Teams Management Intern Relationship Specialty Start Date End Date Soy Joyce MD [address] [facility], [address] [place] [address] PCP - General Internal Medicine 09/25/23
--- OUTSIDE RECORDS SUMMARY | 2024-03-24 09:24 | XMS_ITS | Data Portability ---
Author Organization [facility], Main Office Address [address] [place] [address] Care Team Providers Care Buffing Turner And Counter Name Role Phone ADITYA JOYCE Primary Care Provider ADITYA JOYCE Referring Provider [phone] FRAN WARNER Agency Trainer PABLO HEART Gum Rolling Machine Tender ANASTASIA GANDHI Therapeutic Recreation Specialist Assessment Encounter Date Assessment Date Assessment LastModified by Organization Details LastModified Time 06/12/2023 06/12/2023 Assessment: Very severe OSAHS, AHI = 73 Plan: The following were reviewed and explained to the patient: [facility] split sleep study 12/28/17 AHI = 73, [...] carrier. Patient will setup an appointment with [facility] for supplies and pressure adjustments. A major [...] further management. Follow-up: 6 months, December 2023 [facility] Not available 06/12/2023 12:58:33 06/25/2023 06/25/2023 07/26/2022: [...] TSH + free T4, serum 2023 024 [email or web address] Not available 12/22/2023 14:36:51 urinalysi s, dipstick 2023 024 teo [email or web address] [facility] [address] , [place], [address], 06/26/2023 08:59:57 microalbu min, urine 2023 024 ROMEO Not available 08/20/2023 10:02:41 glycohemo globin, total, blood 2023 024 Not available 12/22/2023 14:36:50 lipid panel, serum 2023 024 ROMEO Not available 08/19/2023 13:17:40 CMP, serum or plasma 2023 024 ORMEO Not available 08/19/2023 13:17:47 CBC w/ auto [...] vitamin D3, 25-hydrox y, serum 2023 024 [email or web address] Not available 12/01/2023 17:15:44 microalbu min, urine 2023 024 ATHENAFAX Not available 11/24/2023 15:38:36 glycohemo globin, total, blood 2023 024 ATHENAFAX Not available 11/24/2023 15:38:36 lipid panel, serum 2023 024 Not available 12/29/2023 12:29:21 CMP, serum or plasma 2023 024 [email or web address] Not available 12/29/2023 12:29:21 CBC w/ auto diff 2023 024 [email or web address] Not available 12/29/2023 12:29:22 TSH + free T4, serum 2023 024 [email or web address] Not available 12/29/2023 12:29:22 vitamin D3, 25-hydrox y, serum 2023 024 [email or web address] Not available 12/29/2023 12:29:22 microalbu min, urine 2023 024 [email or web address] Not available 12/29/2023 12:29:20 glycohemo globin, total, blood 2023 024 [email or web address] Not available 12/29/2023 12:29:20 Referral orthopedi c surgeon referral 2023 024 Kobe MONCADA, [address], [place], [address], 12/22/2023 14:37:52 pulmonolo gist referral 2023 024 [email or web address] Fran Warner MD, [address] [place], [address], 07/23/2023 08:17:13 hematolog ist referral 2023 024 Pablo Heart, [address], [place], [address], 07/23/2023 08:17:14 gastroent erologist referral 2023 024 [email or web address] Sharonda Collazo MD, [address], [place], [address], 12/22/2023 14:37:51 podiatris t referral 2023 024 [email or web address] Blaine Faustin DPM, [address] [facility], [place], [address], 12/22/2023 14:37:51 gastroent erologist referral 2023 024 [email or web address] Anastasia Gandhi APRN, [address] [facility] [address], [place], [address], 02/19/2024 08:33:14 orthopedi c surgeon referral 2023 024 [email or web address] Kobe Pelaez PA, [address], [place], [address], 02/19/2024 08:33:13 pulmonolo gist referral 2023 024 [email or web address] Fran Warner MD, [address] [facility], [place], [address], 09/23/2023 17:33:30 hematolog ist referral 2023 024 [email or web address] Pablo Heart, [address], [place], [address], 09/23/2023 17:33:59 gastroent erologist referral 2023 024 Sharonda Collazo MD, [address] [facility], [place], [address], 02/23/2024 08:34:01 podiatris t referral 2023 024 [email or web address] Inocencio Angeles Jr DPM, [address], [address], [place], [address], 02/23/2024 08:34:00 gastroent erologist referral 2023 024 ATHMINERVA Gandhi APRN, [address] [facility], [place], [address], 11/24/2023 15:26:57 nephrolog ist referral 2023 DYANA Banks MD (Nephrology, [address], [place], [address], 11/24/2023 15:27:00 orthopedi c surgeon referral 2023 ROMEO Pelaez PA, [address], [place], [address], 11/24/2023 16:14:57 pulmonolo gist referral 2023 024 [email or web address] Fran Warner MD, [address] [place], [address], 12/22/2023 14:38:12 hematolog ist referral 2023 [email or web address] [facility], [address], [place], [address], 12/22/2023 14:38:21 gastroent erologist referral 2023 DYANA Collazo MD, [address] [facility], [place], [address], 11/24/2023 15:27:43 podiatris t referral 2023 DYANA Angeles Jr DPM, [address], [address], [place], [address], 11/24/2023 15:28:34 pulmonolo gist referral 2023 024 [email or web address] Fran Warner MD, [address] [facility], [place], [address], 12/31/2023 14:37:10 nephrolog ist referral 2023 024 [email or web address] Gael Banks MD (Nephrology, [address], [place], [address], 12/31/2023 14:40:00 hematolog ist referral 2023 024 [email or web address] Pablo Nobled, [address], [place], [address], 12/31/2023 14:38:19 gastroent erologist referral 2023 024 [email or web address] Anastasiaholly Gandhi INSTRUMENT PANEL ASSEMBLER, [address] [facility], [place], [address], 12/31/2023 14:38:20 orthopedi c surgeon referral 2023 024 Kobe Pelaez PA, [address], [place], [address], 12/31/2023 14:40:00 gastroent erologist referral 2023 024 [email or web address] Sharonda Collazo MD, [address] [facility], [place], [address], 12/31/2023 14:39:59 podiatris t referral 2023 024 [email or web address] Inocencio Angeles Jr DPM, [address], [address], [place], [address], 12/31/2023 14:39:58 Procedures None recorded. Surgeries None recorded. Imaging DEXA, axial skeleton 2023 024 [email or web address] Not available 12/10/2023 12:00:50 DEXA, axial skeleton 2023 024 [email or web address] Not available 12/30/2023 16:59:39 Medication Orders cyclobenz aprine 10 mg tablet [email or web address] [id number], [address], [place], [place], [id number], 12/29/2023 11:05:50 Singulair 10 mg tablet 2023 [id number], [address], [place], [place], [id number], 11/24/2023 15:25:05 Ozempic 1 mg/dose (4 mg/3 mL) subcutane ous pen injector 2023 [facility] #[id number], [address], [place], [place], [id number], 11/24/2023 15:25:03 venlafaxi ne ER 75 mg capsule,e xtended release 24 hr 2023 [facility][id number], [address], [place], [place], [id number], 12/29/2023 12:15:54 Patient TargetsNo targets recorded. Patient Instructions Encounter Date Encounter Id Patient Instructions Last Modified By Organization Details Last Modified Time 08/18/2023 [id number] dementia rating scale-2* [email or web address] Not available 08/18/2023 11:58:33 alcohol misuse* Not available 08/18/2023 11:58:49 depression screening* [email or web address] Not available 08/18/2023 11:59:07 Timed Up and Go test (TUG)* [email or web address] Not available 08/18/2023 11:59:25 multi-dimensiona l health assessment questionnaire* Not available 08/18/2023 11:58:[address] [facility] lt Plan and Screening Recommendations Advance Directives [...] Negative Active diagnosis, Continue current treatment plan [email or web address] Not available 08/18/2023 12:02:44 Reason for Referral Management And Budget Analyst Referral for Type 2 diabetes mellitus without complication Referring Physician: Aditya [facility], Encounter Date: 06/25/2023 Agency Trainer Referral for O bstructive sleep apnea syndrome Referring Physician: Aditya [facility], Encounter Date: 06/25/2023 Referring Physician: Aditya [facility], Encounter Date: 06/25/2023 Therapeutic Recreation Specialist Referral for Screening for malignant neoplasm of colon Referring Physician: Aditya [facility], Encounter Date: 06/25/2023 Orthopedic Surgeon Referral for Osteoarthritis of bilateral hip joints Referring Physician: Kyaw Mccann Medicine, Encounter Date: 06/25/2023 Management And Budget Analyst Referral for Type 2 diabetes mellitus without complication Referring Physician: Kyaw Mccann Medicine, Encounter Date: 08/18/2023 Agency Trainer Referral for O bstructive sleep apnea syndrome Referring Physician: Kyaw Mccann, Encounter Date: 08/18/2023 Referring Physician: Kyaw Mccann Medicine, Encounter Date: 08/18/2023 Therapeutic Recreation Specialist Referral for Screening for malignant neoplasm of colon Referring Physician: Aditya [facility], Encounter Date: 08/18/2023 Orthopedic Surgeon Referral for Osteoarthritis of bilateral hip joints Referring Physician: Aditya [facility], Encounter Date: 08/18/2023 Therapeutic Recreation Specialist Referral for Cirrhosis of liver Referring Physician: Kyaw Mccann, Encounter Date: 08/18/2023 Management And Budget Analyst Referral for Type 2 diabetes mellitus without complication Referring Physician: Kyaw Mccann, Encounter Date: 11/24/2023 Agency Trainer Referral for O bstructive sleep apnea syndrome Referring Physician: Kyaw Mccann, Encounter Date: 11/24/2023 Referring Physician: Kyaw Mccann, Encounter Date: 11/24/2023 Therapeutic Recreation Specialist Referral for Screening for malignant neoplasm of colon Referring Physician: Kyaw Mccann, Encounter Date: 11/24/2023 Orthopedic Surgeon Referral for Osteoarthritis of bilateral hip joints Referring Physician: Kyaw Mccann, Encounter Date: 11/24/2023 Therapeutic Recreation Specialist Referral for Cirrhosis of liver Referring Physician: Kyaw Mccann, Encounter Date: 11/24/2023 Photographic Colorist 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 Referring Physician: Kyaw Mccann Medicine, Encounter Date: 11/24/2023 Management And Budget Analyst Referral for Type 2 diabetes mellitus without complication Referring Physician: Aditya [facility], Encounter Date: 12/29/2023 Agency Trainer Referral for O bstructive sleep apnea syndrome Referring Physician: Aditya [facility], Encounter Date: 12/29/2023 Referring Physician: Aditya Joyce [facility], Encounter Date: 12/29/2023 Therapeutic Recreation Specialist Referral for Screening for malignant neoplasm of colon Referring Physician: Aditya [facility], Encounter Date: 12/29/2023 Orthopedic Surgeon Referral for Osteoarthritis of bilateral hip joints Referring Physician: Aditya [facility], Encounter Date: 12/29/2023 Therapeutic Recreation Specialist Referral for Cirrhosis of liver Referring Physician: Aditya [facility], Encounter Date: 12/29/2023 Photographic Colorist 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 Referring Physician: Aditya [facility], Encounter Date: 12/29/2023 Results Created Date Observation Date Name Description Value Unit Range Abnormal Flag Note LastModifiedBy Organization Detail LastModifiedTime 06/25/19 24 06/25/2023 urina lysis , dipst ick Leukocytes (reference range: negative georgina/ l) Negati ve Not Available [facility] [address] [facility] [address], [place], [address], 06/25/2023 16:21:08 06/25/19 24 06/25/2023 urina lysis , dipst ick Nitrite (reference rage: negative mg/dl) negati ve Not Available [facility] Internal [facility] [address] [facility] [address], [place], [address], 06/25/2023 16:21:08 06/25/19 24 06/25/2023 urina lysis , dipst ick Urobilinogen (reference range: 0.2-1 mg/dl) 0.2 Not Available [facility] Internal [facility] [address], [place], [address], 06/25/2023 16:21:08 06/25/19 24 06/25/2023 urina lysis , dipst ick Protein (reference range: negative mg/dl) Negati ve Not Available [facility] Internal [facility] [address], [place], [address], 06/25/2023 16:21:08 06/25/19 24 06/25/2023 urina lysis , dipst ick pH (reference range: 5-7) 5.0 Not Available [facility] Internal [facility] [address] [facility] [address], [place], [address], 06/25/2023 16:21:08 06/25/19 24 06/25/2023 urina lysis , dipst ick Blood (reference range: negative Thor/ l) Negati ve Not Available [facility] Internal [facility] [address], [place], [address], 06/25/2023 16:21:08 06/25/19 24 06/25/2023 urina lysis , dipst ick Specific [place] (reference range: 1.005-1.030) 1.015 Not Available [facility] Internal [facility] [address], [place], [address], 06/25/2023 16:21:08 06/25/19 24 06/25/2023 urina lysis , dipst ick Ketone (reference range: negative mg/dl) Negati ve Not Available [facility] Internal [facility] [address] [facility] [address], [place], [address], 06/25/2023 16:21:08 06/25/19 24 06/25/2023 urina lysis , dipst ick Bilirubin (reference range: negative mg/dl) Negati ve Not Available [facility] Internal [facility] [address], [place], [address], 06/25/2023 16:21:08 06/25/19 24 06/25/2023 urina lysis , dipst ick Glucose (reference range: negative mg/dl) Negati ve Not Available [facility] Internal [facility] [address], [place], [address], 06/25/2023 16:21:08 06/25/19 24 06/25/2023 urina lysis , dipst ick Appearance Clear Not Available [facility] Internal [facility] [address], [place], [address], 06/25/2023 16:21:08 06/25/19 24 06/25/2023 urina lysis , dipst ick Color Yellow Not Available [facility] Internal [facility] [address], [place], [address], 06/25/2023 16:21:08 08/19/19 24 08/19/2023 CBC/C OMPLE TE BLD COUNT W/DIF F white blood cells 3.8 x10'3 /uL 4.2-10 .8 low Not Available [facility] (Lab) [address], [place], [address], 08/19/2023 13:10:18 08/19/19 24 08/19/2023 CBC/C OMPLE TE BLD COUNT W/DIF F red blood cells 4.28 x10'6 /uL 3.80-5 .20 Not Available [facility] (Lab) [address] [place], [address], 08/19/2023 13:10:18 08/19/19 24 08/19/2023 CBC/C OMPLE TE BLD COUNT W/DIF F hemoglobin 13.6 g/dL 12.0-1 5.6 Not Available [facility] (Lab) [address] [place], [address], 08/19/2023 13:10:18 08/19/19 24 08/19/2023 CBC/C OMPLE TE BLD COUNT W/DIF F hematocrit 43.3 % 35.7-4 5.7 Not Available [facility] (Lab) [address] [place], [address], 08/19/2023 13:10:18 08/19/19 24 08/19/2023 CBC/C OMPLE TE BLD COUNT W/DIF F mean red cell volume 101.2 fL 82.0-9 9.0 high Not Available [facility] (Lab) [address] [place], [address], 08/19/2023 13:10:18 08/19/19 24 08/19/2023 CBC/C OMPLE TE BLD COUNT W/DIF F mean red cell hemoglobin 31.8 pg 27.0-3 3.0 Not Available [facility] (Lab) [address] [place], [address], 08/19/2023 13:10:18 08/19/19 24 08/19/2023 CBC/C OMPLE TE BLD COUNT W/DIF F mean RBC HGB concentratio n 31.4 g/dL 31.0-3 6.0 Not Available [facility] (Lab) [address] [place], [address], 08/19/2023 13:10:18 08/19/19 24 08/19/2023 CBC/C OMPLE TE BLD COUNT W/DIF F red cell distribution width 14.4 % 11.8-1 5.5 Not Available [facility] (Lab) [address] [place], [address], 08/19/2023 13:10:18 08/19/19 24 08/19/2023 CBC/C OMPLE TE BLD COUNT W/DIF F platelets 149 x10'3 /uL 150-40 0 low Not Available [facility] (Lab) [address] [place], [address], 08/19/2023 13:10:18 08/19/19 24 08/19/2023 CBC/C OMPLE TE BLD COUNT W/DIF F mean platelet volume 9.8 fL 9.0-12 .4 Not Available [facility] (Lab) [address] [place], [address], 08/19/2023 13:10:18 08/19/19 24 08/19/2023 CBC/C OMPLE TE BLD COUNT W/DIF F neutrophils 54.0 % 39.0-7 2.0 Not Available [facility] (Lab) [address] [place], [address], 08/19/2023 13:10:18 08/19/1908/19/2023 CBC/C OMPLE TE BLD COUNT W/DIF F lymphocytes 30.4 % 16.0-4 7.0 Not Available [facility] (Lab) [address] [place], [address], 08/19/2023 13:10:18 08/19/1908/19/2023 CBC/C OMPLE TE BLD COUNT W/DIF F monocytes 9.8 % 5.0-12 .0 Not Available [facility] (Lab) [address] [place], [address], 08/19/2023 13:10:18 08/19/19 24 08/19/2023 CBC/C OMPLE TE BLD COUNT W/DIF F eosinophils 4.5 % 1.0-7. 0 Not Available [facility] (Lab) [address] [place], [address], 08/19/2023 13:10:18 08/19/19 24 08/19/2023 CBC/C OMPLE TE BLD COUNT W/DIF F basophils 0.8 % 0.0-2. 0 Not Available [facility] (Lab) [address] [place], [address], 08/19/2023 13:10:18 08/19/19 24 08/19/2023 CBC/C OMPLE TE BLD COUNT W/DIF F immature granulocytes 0.5 % 0.00-0 .50 Not Available [facility] (Lab) [address] [place], [address], 08/19/2023 13:10:18 08/19/19 24 08/19/2023 CBC/C OMPLE TE BLD COUNT W/DIF F neutrophils, absolute count 2.04 x10'3 /uL 1.5-8. 0 Not Available [facility] (Lab) [address] [place], [address], 08/19/2023 13:10:18 08/19/1908/19/2023 CBC/C OMPLE TE BLD COUNT W/DIF F lymphocytes, absolute count 1.15 x10'3 /uL 1.07-3 .43 Not Available [facility] (Lab) [address] [place], [address], 08/19/2023 13:10:18 08/19/19 24 08/19/2023 CBC/C OMPLE TE BLD COUNT W/DIF F monocytes, absolute count 0.37 x10'3 /uL 0.29-0 .99 Not Available [facility] (Lab) [address] [place], [address], 08/19/2023 13:10:18 08/19/19 24 08/19/2023 CBC/C OMPLE TE BLD COUNT W/DIF F eosinophils, absolute count 0.17 x10'3 /uL 0.02-0 .53 Not Available [facility] (Lab) [address] [place], [address], 08/19/2023 13:10:18 08/19/1908/19/2023 CBC/C OMPLE TE BLD COUNT W/DIF F basophils, absolute count 0.03 x10'3 /uL 0.01-0 .08 Not Available [facility] (Lab) [address] [place], [address], 08/19/2023 13:10:18 08/19/19 24 08/19/2023 CBC/C OMPLE TE BLD COUNT W/DIF F immature granulocytes ,absolute 0.02 x10'3 /uL 0.00-0 .05 Not Available [facility] (Lab) [address] [place], [address], 08/19/2023 13:10:18 08/19/19 24 08/19/2023 CBC/C OMPLE TE BLD COUNT W/DIF F nucleated red blood cells 0.0 % -0 Not Available [facility] (Lab) [address] [place], [address], 08/19/2023 13:10:18 08/19/19 24 08/19/2023 CBC/C OMPLE TE BLD COUNT W/DIF F NRBC# 0.00 x10'3 /uL Not Available [facility] (Lab) [address] [place], [address], 08/19/2023 13:10:18 08/19/19 24 08/19/2023 LIPID PANEL cholesterol 137 mg/dL 140-19 9 low NIH VEENA NSUS RECOM MENDA TION FOR NISA STERO L: ADULT CHILD LOW RISK: <200 <170 BORDE RLINE : <200- 239 ----- HIGH RISK: >240 >200 Not Available [facility] (Lab) [address] [place], [address], 08/19/2023 13:17:40 08/19/19 24 08/19/2023 LIPID PANEL triglyceride s 136 mg/dL 0-150 NIH VEENA NSUS REPOR T RECOM MENDA TION FOR TRIGL YCERI NYDIA: ADULT CHILD LOW RISK: <150 ----- BODER LINE: 150-1 99 ----- HIGH RISK: >200 ----- Not Available [facility] (Lab) [address] [place], [address], 08/19/2023 13:17:40 08/19/19 24 08/19/2023 LIPID PANEL HDL cholesterol 65 mg/dL 40- Not Available [facility] (Lab) [address] [place], [address], 08/19/2023 13:17:40 08/19/19 24 08/19/2023 LIPID PANEL [...] WILL NOT BE REPOR ALHAJI. Not Available [facility] (Lab) [address] [place], [address], 08/19/2023 13:17:40 08/19/19 24 08/19/2023 COMPR EHENS FLY METAB OLIC PANEL sodium 137 mmol/ L 137-14 5 Not Available [facility] (Lab) [address] [place], [address], 08/19/2023 13:17:46 08/19/1908/19/2023 COMPR EHENS FLY METAB OLIC PANEL potassium 4.9 mmol/ L 3.5-5. 1 Not Available [facility] (Lab) [address] [place], [address], 08/19/2023 13:17:46 08/19/19 24 08/19/2023 COMPR EHENS FLY METAB OLIC PANEL chloride 108 mmol/ L 98-107 high Not Available [facility] (Lab) [address] [place], [address], 08/19/2023 13:17:46 08/19/19 24 08/19/2023 COMPR EHENS FLY METAB OLIC PANEL carbon dioxide 29 mmol/ L 22-30 Not Available [facility] (Lab) [address] [place], [address], 08/19/2023 13:17:46 08/19/19 24 08/19/2023 COMPR EHENS FLY METAB OLIC PANEL anion gap 4.9 mmol/ L 14-22 low Not Available [facility] (Lab) [address] [place], [address], 08/19/2023 13:17:46 08/19/19 24 08/19/2023 COMPR EHENS FLY METAB OLIC PANEL glucose 102 mg/dL 70-99 high Not Available [facility] (Lab) [address] [place], [address], 08/19/2023 13:17:46 08/19/19 24 08/19/2023 COMPR EHENS FLY METAB OLIC PANEL BUN 15 mg/dL 8-19 Not Available [facility] (Lab) [address] [place], [address], 08/19/2023 13:17:46 08/19/19 24 08/19/2023 COMPR EHENS FLY METAB OLIC PANEL creatinine 1.01 mg/dL 0.66-1 .25 Not Available [facility] (Lab) [address] [place], [address], 08/19/2023 13:17:46 08/19/19 24 08/19/2023 COMPR EHENS FLY METAB OLIC PANEL GFR 53 Refer ence Range : [place] ge GFR Healt hy Adult : >60 [...] calcu lator is avail able on the [facility] websi te: https ://albina w.kid janey.o rg/pr ofess ional s/kdo qi/gf r_cal culat or Not Available [facility] (Lab) [address] [place], [address], 08/19/2023 13:17:46 08/19/19 24 08/19/2023 COMPR EHENS FLY METAB OLIC PANEL alkaline phosphatase 65 U/L 38-126 Not Available [facility] (Lab) [address] [place], [address], 08/19/2023 13:17:46 08/19/19 24 08/19/2023 COMPR EHENS FLY METAB OLIC PANEL alanine aminotransfe rase 36 U/L 0-35 high Not Available [facility] (Lab) [address] [place], [address], 08/19/2023 13:17:46 08/19/19 24 08/19/2023 COMPR EHENS FLY METAB OLIC PANEL aspartate aminotransfe rase 44 U/L 15-37 high Not Available [facility] (Lab) [address] [place], [address], 08/19/2023 13:17:46 08/19/19 24 08/19/2023 COMPR EHENS FLY METAB OLIC PANEL bilirubin, total 0.50 mg/dL 0.20-1 .30 Not Available [facility] (Lab) [address] [place], [address], 08/19/2023 13:17:46 08/19/19 24 08/19/2023 COMPR EHENS FLY METAB OLIC PANEL calcium 9.0 mg/dL 8.4-10 .2 Not Available [facility] (Lab) [address] [place], [address], 08/19/2023 13:17:46 08/19/19 24 08/19/2023 COMPR EHENS FLY METAB OLIC PANEL total protein 6.8 g/dL 6.3-8. 2 Not Available [facility] (Lab) [address] [place], [address], 08/19/2023 13:17:46 08/19/19 24 08/19/2023 COMPR EHENS FLY METAB OLIC PANEL albumin 3.9 g/dL 3.0-4. 4 Not Available [facility] (Lab) [address] [place], [address], 08/19/2023 13:17:46 08/19/19 24 08/19/2023 COMPR EHENS FLY METAB OLIC PANEL globulin 2.9 g/dL 2.6-4. 2 Not Available [facility] (Lab) [address] [place], [address], 08/19/2023 13:17:46 08/19/19 24 08/19/2023 COMPR EHENS FLY METAB OLIC PANEL A/G ratio 1.3 ratio 1.0-2. 0 Not Available [facility] (Lab) [address] [place], [address], 08/19/2023 13:17:46 08/19/19 24 08/19/2023 T4 FREE free T4 0.88 NG/dL 0.78-2 .19 Not Available [facility] (Lab) [address] [place], [address], 08/19/2023 13:29:08 08/19/19 24 08/19/2023 TSH thyroid-stim ulating hormone 10.500 uIU/m L 0.465- 4.680 high Not Available [facility] (Lab) [address] [place], [address], 08/19/2023 13:29:25 08/19/19 24 08/19/2023 HEMOG LOBIN A1C HA1C 5.8 % 4.0-6. 0 Diabe nakul Scree marisela Crite thomas: <5.7% Consi stent with absen ce of diabe nakul 5.7-6 .4% Consi stent with incre ased risk for diabe nakul (pred iabet es) >OR=6 .5% Consi stent with diabe nakul REFER ENCE: Diabe nakul Care 2015, 39(Kovacs ppl.1 ):s13 -s22 Not Available [facility] (Lab) [address] [place], [address], 08/19/2023 14:57:00 08/19/19 24 08/19/2023 MICRO ALBUM IN RANDO M URINE microalbumin , urine <6.0 mg/L 0.0-16 .6 Not Available [facility] (Lab) [address] [place], [address], 08/19/2023 15:30:50 08/19/19 24 08/25/2023 25-HY DROXY VITAM IN D LCMS D2+D3 25-hydroxy, vitamin D 34 NG/mL Refer ence Range : All Ages: Targe t level s 30 - 100 Not Available [facility] (Lab) [address] [place], [address], 08/25/2023 21:07:27 08/19/19 24 08/25/2023 25-HY DROXY VITAM IN D LCMS D2+D3 25-hydroxy, vitamin D-2 10 NG/mL This test was devel oped and its perfo rmanc e benjamin cteri stics deter mined by [facility]. It has not been clear ed or appro parmjit by the Food and Drug Admin istra tion. Not Available [facility] (Lab) [address] [place], [address], 08/25/2023 21:07:27 08/19/19 24 08/25/2023 25-HY DROXY VITAM IN D LCMS D2+D3 25-hydroxy, vitamin D-3 24 NG/mL This test was devel oped and its perfo rmanc e benjamin cteri stics deter mined by [facility]. It has not been clear ed or appro parmjit by the Food and Drug Admin istra tion. Perfo rmed at: [facility] [employer] [address] [place] [id number] Lab Direc tor: Luis Armando manrique MD, Phone : [phone] Not Available [facility] (Lab) [address] [place], [address], 08/25/2023 21:07:27 11/21/19 24 11/21/2023 COMPR EHENS FLY METAB OLIC PANEL sodium 139 mmol/ L 137-14 5 Not Available [facility] (Lab) [address] [place], [address], 11/21/2023 18:30:15 11/21/19 24 11/21/2023 COMPR EHENS FLY METAB OLIC PANEL potassium 5.0 mmol/ L 3.5-5. 1 Not Available [facility] (Lab) [address] [place], [address], 11/21/2023 18:30:15 11/21/19 24 11/21/2023 COMPR EHENS FLY METAB OLIC PANEL chloride 104 mmol/ L 98-107 Not Available [facility] (Lab) [address] [place], [address], 11/21/2023 18:30:15 11/21/19 24 11/21/2023 COMPR EHENS FLY METAB OLIC PANEL carbon dioxide 27 mmol/ L 22-30 Not Available [facility] (Lab) [address] [place], [address], 11/21/2023 18:30:15 11/21/19 24 11/21/2023 COMPR EHENS FLY METAB OLIC PANEL anion gap 13.0 mmol/ L 14-22 low Not Available [facility] (Lab) [address] [place], [address], 11/21/2023 18:30:15 11/21/19 24 11/21/2023 COMPR EHENS FLY METAB OLIC PANEL glucose 107 mg/dL 70-99 high Not Available [facility] (Lab) [address] [place], [address], 11/21/2023 18:30:15 11/21/19 24 11/21/2023 COMPR EHENS FLY METAB OLIC PANEL BUN 25 mg/dL 8-19 high Not Available [facility] (Lab) [address] [place], [address], 11/21/2023 18:30:15 11/21/19 24 11/21/2023 COMPR EHENS FLY METAB OLIC PANEL creatinine 1.03 mg/dL 0.66-1 .25 Not Available [facility] (Lab) [address] [place], [address], 11/21/2023 18:30:15 11/21/19 24 11/21/2023 COMPR EHENS FLY METAB OLIC PANEL GFR 52 Refer ence Range : [place] ge GFR Healt hy Adult : >60 [...] calcu lator is avail able on the [facility] websi te: https ://albina w.keila toth.o tarik/pr ofess ional s/kdo qi/gf r_cal culat or Not Available [facility] (Lab) [address] [place], [address], 11/21/2023 18:30:15 11/21/1911/21/2023 COMPR EHENS FLY METAB OLIC PANEL alkaline phosphatase 65 U/L 38-126 Not Available [facility] (Lab) [address] [place], [address], 11/21/2023 18:30:15 11/21/19 24 11/21/2023 COMPR EHENS FLY METAB OLIC PANEL alanine aminotransfe rase 50 U/L 0-35 high Not Available [facility] (Lab) [address] [place], [address], 11/21/2023 18:30:15 11/21/19 24 11/21/2023 COMPR EHENS FLY METAB OLIC PANEL aspartate aminotransfe rase 55 U/L 15-37 high Not Available [facility] (Lab) [address] [place], [address], 11/21/2023 18:30:15 11/21/19 24 11/21/2023 COMPR EHENS FLY METAB OLIC PANEL bilirubin, total 0.40 mg/dL 0.20-1 .30 Not Available [facility] (Lab) [address] [place], [address], 11/21/2023 18:30:15 11/21/1911/21/2023 COMPR EHENS FLY METAB OLIC PANEL calcium 9.8 mg/dL 8.4-10 .2 Not Available [facility] (Lab) [address] [place], [address], 11/21/2023 18:30:15 11/21/19 24 11/21/2023 COMPR EHENS FLY METAB OLIC PANEL total protein 7.1 g/dL 6.3-8. 2 Not Available [facility] (Lab) [address] [place], [address], 11/21/2023 18:30:15 11/21/19 24 11/21/2023 COMPR EHENS FLY METAB OLIC PANEL albumin 4.1 g/dL 3.0-4. 4 Not Available [facility] (Lab) [address] [place], [address], 11/21/2023 18:30:15 11/21/19 24 11/21/2023 COMPR EHENS FLY METAB OLIC PANEL globulin 3.0 g/dL 2.6-4. 2 Not Available [facility] (Lab) [address] [place], [address], 11/21/2023 18:30:15 11/21/19 24 11/21/2023 COMPR EHENS FLY METAB OLIC PANEL A/G ratio 1.4 ratio 1.0-2. 0 Not Available [facility] (Lab) [address] [place], [address], 11/21/2023 18:30:15 11/21/19 24 11/21/2023 LIPID PANEL cholesterol 143 mg/dL 140-19 9 NIH VEENA NSUS RECOM MENDA TION FOR NISA STERO L: ADULT CHILD LOW RISK: <200 <170 BORDE RLINE : <200- 239 ----- HIGH RISK: >240 >200 Not Available [facility] (Lab) [address] [place], [address], 11/21/2023 18:30:19 11/21/19 24 11/21/2023 LIPID PANEL triglyceride s 112 mg/dL 0-150 NIH VEENA NSUS REPOR T RECOM MENDA TION FOR TRIGL YCERI NYDIA: ADULT CHILD LOW RISK: <150 ----- BODER LINE: 150-1 99 ----- HIGH RISK: >200 ----- Not Available [facility] (Lab) [address] [place], [address], 11/21/2023 18:30:19 11/21/19 24 11/21/2023 LIPID PANEL HDL cholesterol 79 mg/dL 40- Not Available [facility] (Lab) [address] [place], [address], 11/21/2023 18:30:19 11/21/19 24 11/21/2023 LIPID PANEL [...] WILL NOT BE REPOR ALHAJI. Not Available [facility] (Lab) [address] [place], [address], 11/21/2023 18:30:19 11/21/1911/21/2023 T4 FREE free T4 1.04 NG/dL 0.78-2 .19 Not Available [facility] (Lab) [address] [place], [address], 11/21/2023 18:40:56 11/21/1911/21/2023 TSH thyroid-stim ulating hormone 7.700 uIU/m L 0.465- 4.680 high Not Available [facility] (Lab) [address] [place], [address], 11/21/2023 18:57:15 11/21/1911/21/2023 VITAM IN D 25-HY DROXY [id number] 47.6 NG/mL 30-100 Vitam in D Statu s: Defic ient: <20 ng/mL Insuf ficie nt: 20-29 ng/mL Suffi cient : 30-10 0 ng/mL Not Available [facility] (Lab) [address] [place], [address], 11/21/2023 19:04:57 11/21/1911/21/2023 CBC/C OMPLE TE BLD COUNT W/DIF F white blood cells 6.6 x10'3 /uL 4.2-10 .8 Not Available [facility] (Lab) [address] [place], [address], 11/21/2023 19:07:05 11/21/1911/21/2023 CBC/C OMPLE TE BLD COUNT W/DIF F red blood cells 4.54 x10'6 /uL 3.80-5 .20 Not Available [facility] (Lab) [address] [place], [address], 11/21/2023 19:07:05 11/21/19 24 11/21/2023 CBC/C OMPLE TE BLD COUNT W/DIF F hemoglobin 14.6 g/dL 12.0-1 5.6 Not Available [facility] (Lab) [address] [place], [address], 11/21/2023 19:07:05 11/21/1911/21/2023 CBC/C OMPLE TE BLD COUNT W/DIF F hematocrit 45.9 % 35.7-4 5.7 high Not Available [facility] (Lab) [address] [place], [address], 11/21/2023 19:07:05 11/21/1911/21/2023 CBC/C OMPLE TE BLD COUNT W/DIF F mean red cell volume 101.1 fL 82.0-9 9.0 high Not Available [facility] (Lab) [address] [place], [address], 11/21/2023 19:07:05 11/21/1911/21/2023 CBC/C OMPLE TE BLD COUNT W/DIF F mean red cell hemoglobin 32.2 pg 27.0-3 3.0 Not Available [facility] (Lab) [address] [place], [address], 11/21/2023 19:07:05 11/21/1911/21/2023 CBC/C OMPLE TE BLD COUNT W/DIF F mean RBC HGB concentratio n 31.8 g/dL 31.0-3 6.0 Not Available [facility] (Lab) [address] [place], [address], 11/21/2023 19:07:05 11/21/1911/21/2023 CBC/C OMPLE TE BLD COUNT W/DIF F red cell distribution width 14.2 % 11.8-1 5.5 Not Available [facility] (Lab) [address] [place], [address], 11/21/2023 19:07:05 11/21/1911/21/2023 CBC/C OMPLE TE BLD COUNT W/DIF F platelets 98 x10'3 /uL 150-40 0 low Not Available [facility] (Lab) [address] [place], [address], 11/21/2023 19:07:05 11/21/1911/21/2023 CBC/C OMPLE TE BLD COUNT W/DIF F neutrophils 53.1 % 39.0-7 2.0 Not Available [facility] (Lab) [address] [place], [address], 11/21/2023 19:07:05 11/21/1911/21/2023 CBC/C OMPLE TE BLD COUNT W/DIF F lymphocytes 31.6 % 16.0-4 7.0 Not Available [facility] (Lab) [address] [place], [address], 11/21/2023 19:07:05 11/21/1911/21/2023 CBC/C OMPLE TE BLD COUNT W/DIF F monocytes 10.5 % 5.0-12 .0 Not Available [facility] (Lab) [address] [place], [address], 11/21/2023 19:07:05 11/21/1911/21/2023 CBC/C OMPLE TE BLD COUNT W/DIF F eosinophils 3.4 % 1.0-7. 0 Not Available [facility] (Lab) [address] [place], [address], 11/21/2023 19:07:05 11/21/1911/21/2023 CBC/C OMPLE TE BLD COUNT W/DIF F basophils 0.9 % 0.0-2. 0 Not Available [facility] (Lab) [address] [place], [address], 11/21/2023 19:07:05 11/21/1911/21/2023 CBC/C OMPLE TE BLD COUNT W/DIF F immature granulocytes 0.5 % 0.00-0 .50 Not Available [facility] (Lab) [address] [place], [address], 11/21/2023 19:07:05 11/21/19 24 11/21/2023 CBC/C OMPLE TE BLD COUNT W/DIF F neutrophils, absolute count 3.49 x10'3 /uL 1.5-8. 0 Not Available [facility] (Lab) [address] [place], [address], 11/21/2023 19:07:05 11/21/1911/21/2023 CBC/C OMPLE TE BLD COUNT W/DIF F lymphocytes, absolute count 2.07 x10'3 /uL 1.07-3 .43 Not Available [facility] (Lab) [address] [place], [address], 11/21/2023 19:07:05 11/21/19 24 11/21/2023 CBC/C OMPLE TE BLD COUNT W/DIF F monocytes, absolute count 0.69 x10'3 /uL 0.29-0 .99 Not Available [facility] (Lab) [address] [place], [address], 11/21/2023 19:07:05 11/21/1911/21/2023 CBC/C OMPLE TE BLD COUNT W/DIF F eosinophils, absolute count 0.22 x10'3 /uL 0.02-0 .53 Not Available [facility] (Lab) [address] [place], [address], 11/21/2023 19:07:05 11/21/1911/21/2023 CBC/C OMPLE TE BLD COUNT W/DIF F basophils, absolute count 0.06 x10'3 /uL 0.01-0 .08 Not Available [facility] (Lab) [address] [place], [address], 11/21/2023 19:07:05 11/21/19 24 11/21/2023 CBC/C OMPLE TE BLD COUNT W/DIF F immature granulocytes ,absolute 0.03 x10'3 /uL 0.00-0 .05 Not Available [facility] (Lab) [address] [place], [address], 11/21/2023 19:07:05 11/21/19 24 11/21/2023 CBC/C OMPLE TE BLD COUNT W/DIF F nucleated red blood cells 0.0 % -0 Not Available [facility] (Lab) [address] [place], [address], 11/21/2023 19:07:05 11/21/19 24 11/21/2023 CBC/C OMPLE TE BLD COUNT W/DIF F NRBC# 0.00 x10'3 /uL Not Available [facility] (Lab) [address] [place], [address], 11/21/2023 19:07:05 05/19/19 24 05/19/2023 XR, foot No observ ation record ed. [email or web address] [place] [address] [address] [place], [address], 10/21/2023 17:38:44 05/19/19 24 05/19/2023 XR, hip + pelvi s, unila teral No observ ation record ed. [email or web address] [facility] [address] [place], [address], 10/21/2023 17:39:06 06/24/19 XR, hip + pelvi s, bilat eral, 3 or 4 view [facility] [address] [place] [address] [phone] Roberto ordonez Name: MERCEDES QUIROZ ion #: [id number] Sex: F : 1944 6 Dictat [...] at 2023 12:10: 59 PM Page [address] (Imaging) [address] [place], [place], [facility], 07/09/2023 15:01:58 06/24/19 24 06/24/2023 XR, hip, bilat eral No observ ation record ed. [address] [place], [address], 07/09/2023 15:01:58 06/24/19 24 SI joint s [id number] [facility] [address] [place] [address] [phone] Patien t Name: MERCEDES QUIROZ Access ion #: [id number] Sex: F : 1944 6 Dictat [...] at 2023 12:17: 51 PM Page [email or web address] (Imaging) [address] [place], [address], 07/09/2023 15:01:59 06/24/19 24 XR, lumbo sacra l spine , 2 or 3 view [facility] [address] [place] [address] Patien t Name: HAYDERGladys Ordonez MERCEDES Access ion #: [id number] Sex: F : 1944 6 Dictat [...] at 2023 12:18: 36 PM Page [address] (Imaging) [address] [place], [address], 07/09/2023 15:01:59 06/24/19 24 06/24/2023 XR, sacro iliac joint (s) No observ ation record ed. [facility] [address] [place], [address], 07/09/2023 15:02:00 06/24/19 24 06/24/2023 XR, lumbo sacra l spine , 2 or 3 view No observ ation record ed. [email or web address] [facility] [address] [place], [address], 10/22/2023 10:35:09 02/02/20 24 02/02/2024 US, abdom en No observ ation record ed. [address] [place], [address], 02/05/2024 09:38:20 03/10/19 25 03/10/2024 imagi ng/di agnos tic resul t No observ ation record ed. [place] [id number], [place], [address], 03/10/2024 19:02:45 Result Notes None recorded. Problems Name Problem SNOMED Code Status Onset Date Resolution Date Notes Provider Name and Address Organization Details Recorded Time Gastroesop hageal reflux disease without esophagiti s 700781033 Active 2022 Aditya lancaster MD [address] [facility], [facility] [address], [place], [address] , [place] [employer] 3 12:23:57 Thrombocyt openic disorder 408526113 Active 2022 Aditya lancaster MD [address] [facility], [address], [place], [address] , [place] [employer] 3 12:24:11 Moderate recurrent major depression 76656645 Active 2022 Aditya lancaster MD [address], [address], [place], [address] , [place] [facility] 3 12:25:15 Environmen shayy allergy 222176063 Active 2022 Aditya lancaster MD [address], [address], [place], [address] , [place] [facility] 3 12:26:00 Osteoarthr 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 7671649238886 00 Active 2022 Dima Ramos MD [address], [address], [place], [address] , [place] [facility] 3 15:09:42 COVID-19 691502966 Active 2022 Katie hernandez, [place] - [facility] 3 14:26:23 Chronic kidney disease 713682715 Active 2022 Aditya lancaster MD [address], [address], [place], [address] , [place] [facility] 3 12:25:04 Restless legs 31766054 Active 2023 Aditya lancaster MD [address], [address], [place], [address] , [place] [facility] 4 10:43:59 Sinus tachycardi a 28054960 Active 2023 Aditya lancaster MD [address], [address], [place], [address] , [place] [facility] 4 09:35:59 Osteoarthr itis of bilateral hip joints 7296855369015 05 Active 2023 Aditya lancaster MD [address], [address], [place], [address] , [place] [facility] 4 16:02:02 Deep venous thrombosis 147859744 Active Not Available [employer] 3 09:34:23 Body mass index 30+ - obesity 022378738 Active 2018 Not Available [employer] 3 09:34:23 Cataract 709577279 Active Not Available [facility] 3 09:34:23 Cirrhosis of liver 35484633 Active 2018 Not Available [facility] 3 09:34:23 Localized, primary osteoarthr itis of the hand 923951763 Active Not Available [facility] 3 09:34:23 Osteoarthr itis of knee 930693596 Active Not Available [facility] 3 09:34:23 Cervical spondylosi s without myelopathy 803688374 Active Not Available [facility] 3 09:34:23 Vitamin D deficiency 05379136 Active 2021 Not Available [facility] 3 09:34:23 Hypothyroi dism 71268900 Active Not Available [facility] 3 09:34:23 Anxiety 88768898 Active 2017 Not Available [facility] 3 09:34:23 Hyperlipid emia 21156666 Active 2021 Not Available [facility] 3 09:34:23 Essential hypertensi on 90037904 Active 2017 Not Available [facility] 3 09:34:23 Rhinitis 25796921 Active Not Available [facility] 3 09:34:23 Diabetes mellitus 20338463 Active Not Available [facility] 3 09:34:23 Obstructiv e sleep apnea syndrome 11060185 Active 2018 Not Available [facility] 3 09:34:24 Notes:CPAP set up 05/12/23 C [...] CPT Code, subsequent completed Puneet King LPN [employer] 08/12/2023 11:06:57 024 Colonoscopy completed RAMÓN Hsieh [employer] 08/18/2023 10:39:18 023 Ortho - Cortisone Injection completed Dima Ramos MD [address] [facility], [address], [address], [employer] [employer] [facility] 10/01/2022 15:08:00 021 Most Recent Bone Density completed Not Available [facility] 04/10/2022 03:14:36 020 Date of Last Colonoscopy completed Not Available [facility] 04/10/2022 03:14:36 013 Total knee arthroplasty completed Not Available [facility] 04/10/2022 03:14:37 013 Total knee arthroplasty completed Not Available [facility] 04/10/2022 03:14:37 Gastrointestinal Surgery completed Not Available [facility] 04/10/2022 03:14:37 other completed Not Available [facility] 04/10/2022 03:14:37 Gallbladder Surgery completed Not Available [facility] 04/10/2022 03:14:37 Tonsillectomy completed Not Available [facility] 04/10/2022 03:14:37 Knee Surgery completed Not Available [facility] 04/10/2022 03:14:37 Cataract Surgery completed Not Available [facility] 04/10/2022 03:14:37 Hernia Repair completed Not Available [facility] 04/10/2022 03:14:37 [employer]RO[employer] Surgery completed Not Available [facility] 04/10/2022 03:14:37 other completed Not Available [facility] 04/10/2022 03:14:37 Imaging Results Imaging Date Name Status LastModified by Organiz ation Details LastModified Time 05/19/2023 XR, foot completed [email or web address] [facility] [address] [place], [address], 10/21/2023 17:38:44 05/19/2023 XR, hip + pelvis, unilateral completed [email or web address] [facility] [address] [place], [address], 10/21/2023 17:39:06 06/24/2023 XR, hip + pelvis, bilateral, 3 or 4 view completed [email or web address] [facility] (Imaging) [address] [place], [address], 07/09/2023 15:01:58 06/24/2023 XR, hip, bilateral completed [email or web address] [facility] [address] [place], [address], 07/09/2023 15:01:58 06/24/2023 SI joints 3vws+ completed [id number] [facility] (Imaging) [address] [place], [address], 07/09/2023 15:01:59 06/24/2023 XR, lumbosacral spine, 2 or 3 view completed [email or web address] [facility] (Imaging) [address] [place], [address], 07/09/2023 15:01:59 06/24/2023 XR, sacroiliac joint(s) completed [email or web address] [facility] [address] [place], [address], 07/09/2023 15:02:00 06/24/2023 XR, lumbosacral spine, 2 or 3 view completed [email or web address] [facility] [address] [place], [address], 10/22/2023 10:35:09 02/02/2024 US, abdomen completed [email or web address] [facility] [address] [place], [address], 02/05/2024 09:38:20 03/10/2024 imaging/diagnos tic result active [facility] [address] [facility] [address], [place], [address], 03/10/2024 19:02:45 Procedure Notes None recorded. Medical [...] Not Available Not Available No t Available [email or web address] Ultra Test strips USE TO TEST ONCE DAILY AND NEEDED 03/13 completed Not Available Not Available Not Available Kenalog 10 mg/mL suspensio n for injection Take 20 mg by injectio n route. 12/02 completed [facility]: 0003-049 4-20 Not Available Not Available Not [...] administ ered by the provider 10/03 completed [facility]: 0409-427 6-17 Not Available Not Available Not [...] mg by injectio n route. 12/02 completed [facility] [address]-58 4- Not Available Not Available Not Available [...] Available Not Available Not Available Fluzone High-Dose [id number] (PF) 180 mcg/0.5 mL intramusc ular syringe active Not Available Not Available Not Available Fluzone High-Dose 0140-2188 (PF) 180 mcg/0.5 mL intramusc ular syringe [...] Updated DateTime 4 165.1 cm 34.6 kg/m2 85573.2 1 g 83 /min 97 % 97 % 97.3 [degF] 120 mm[Hg] 82 mm[Hg] Hodan Boyce CMA [facility] [employer] 4 12:17:00 Date Recorded Heart rate Respiratory rate Provider Jannie nahid and Address Organization Details Last Updated DateTime 06/12/2023 83 /min 14 /min Fran Warner MD [address] [place] [address], [address], [place] [facility] [employer] 06/12/2023 13:04:48 Date Recorded Body height Body mass index (BMI) Body weight Body temperature Heart rate Systolic blood pressure Diastolic blood pressure Provider Name and Address Organization Details Last Updated DateTime 4 165.1 cm 34.9 kg/m2 25950.4 g 97.6 [degF] 78 /min 128 mm[Hg] 74 mm[Hg] RAMÓN Hsieh [facility] [employer] [facility] 4 15:37:30 Date Recorded Body height Body mass index (BMI) Body weight Body temperature Heart rate Systolic blood pressure Diastolic blood pressure Provider Name and Address Organization Details Last Updated DateTime 4 165.1 cm 35.8 kg/m2 68810.3 6 g 97.5 [degF] 78 /min 114 mm[Hg] 60 mm[Hg] RAMÓN Hsieh [facility] [employer] 4 10:41:05 Date Recorded Pain severity - 0-10 verbal numeric rating [Score] - Reported Provider Name and Address Organization Details Last Updated DateTime 08/18/2023 4 Puneet King LPN [facility] [employer] [facility] 08/18/2023 11:52:49 Date Recorded Body height Body mass index (BMI) Body weight Body temperature Heart rate Respiratory rate Oxygen saturation Oxygen saturation in Arterial blood by Pulse oximetry Pain severity - 0-10 verbal numeric rating [Score] - Reported Systolic blood pressure Diastolic blood pressure Provider Name and Address Organization Details Last Updated DateTime 4 165.1 cm 36.5 kg/m2 95135.5 3 g 97.5 [degF] 94 /min 18 /min 96 % 96 % 0 152 mm[Hg] 80 mm[Hg] Puneet King LPN [facility] [employer] [facility] 4 14:44:09 Date Recorded Body height Body mass index (BMI) Body weight Body temperature Heart rate Systolic blood pressure Diastolic blood pressure Provider Name and Address Organization Details Last Updated DateTime 4 165.1 cm 36.8 kg/m2 759057. 91 g 97.6 [degF] 84 /min 118 mm[Hg] 66 mm[Hg] RAMÓN Hsieh [place] - [facility] [employer] [facility] 4 11:08:27 Social History Question Answer Notes LastModified by Organization Details LastModified Time Tobacco Smoking Status Former Smoker Not Available [facility] 04/10/2022 03:13:55 Do You Have An Advance Directive? Yes Asked To Bring Copy For Chart MIGRATION.0301 [id number] Information not available 04/10/2022 What Is Your Level Of Alcohol Consumption? None MIGRATION.030 702761 Information not available 04/10/2022 Do You Wear A Helmet When Biking? No Does Not Bike MIGRATION.030 908922 Information not available 04/10/2022 Are You Blind Or Do You Have Difficulty Seeing? No MIGRATION.0301 204523 Information not available 04/10/2022 Is Blood Transfusion Acceptable In An Emergency? Yes Information not available 08/18/2023 What Is Your Level Of Caffeine Consumption? Occasional MIGRATION.0301 [id number] Information not available 04/10/2022 How Much Tobacco Do You Chew? None MIGRATION.0301 492897 Information not available 04/10/2022 In The 14 Days Before Symptom Onset, Have You Had Close Contact With A Laboratory-confi rmed COVID-19 While That Case Was Ill? No MIGRATION.0301 166548 Information not available 04/10/2022 In The 14 Days Before Symptom Onset, Have You Had Close Contact With A Person Who Is Under Investigation For COVID-19 While That Person Was Ill? No MIGRATION.0301 579279 Information not available 04/10/2022 Are You Currently Employed? No Information not available 03/13/2023 Are You Deaf Or Do You Have Serious Difficulty Hearing? No MIGRATION.0301 473650 Information not available 04/10/2022 What Type Of Diet Are You Following? REGULAR MIGRATION.0301 500001 Information not available 04/10/2022 Which Illicit Or Recreational Drugs Have You Used? None MIGRATION.030 007518 Information not available 04/10/2022 Do You Or Have You Ever Used E-cigarettes Or Vape? Never Used Electronic Cigarettes MIGRATION.030 622666 Information not available 04/10/2022 What Is The Highest Grade Or Level Of School You Have Completed Or The Highest Degree You Have Received? [id number] MIGRATION.030 344400 Information not available 04/10/2022 Do You Have An Electrostatic Air Filter? No Information not available 03/13/2023 What Is Your Occupation? Retired MIGRATION.030 708593 Information not available 04/10/2022 How Many Days Of Moderate To Strenuous Exercise, Like A Brisk Walk, Did You Do In The Last 7 Days? 0 [email or web address] Information not available 08/18/2023 Have There Been Any Changes To Your Family Or Social Situation? No [email or web address] Information not available 08/18/2023 What Is The Fluoride Status Of Your Home? Fluoridated MIGRATION.030 958499 Information not available 04/10/2022 When Did You Quit Smoking? 14+yearssincelastci julien MIGRATION.030 667761 Information not available 04/10/2022 Are There Any Guns Present In Your Home? Yes MIGRATION.0301 326024 Information not available 04/10/2022 Do You Have A Humidifier? No Information not available 03/13/2023 Do You Use Insect Repellent Routinely? No MIGRATION.0301 243129 Information not available 04/10/2022 Where Do You Live? SingleLevelHouse MIGRATION.0301 069901 Information not available 04/10/2022 Presence Of Domestic Violence No Information not available 08/18/2023 Guns Present In The Home? Yes [email or web address] Information not available 08/18/2023 Are You Able To Care For Yourself? Yes [email or web address] Information not available 08/18/2023 Are You Blind Or Do Yo Have Difficulty Seeing? No [email or web address] Information not available 08/18/2023 Are You Deaf Or Do You Have Serious Difficulty Hearing? No [email or web address] Information not available 08/18/2023 General Stress Level? Moderate [email or web address] Information not available 08/18/2023 Live Alone Of With Others? With Others [email or web address] Information not available 08/18/2023 Do You Have A Medical Power Of Commutator Undercutter? Yes MIGRATION.0301 699112 Information not available 04/10/2022 Do You Have Moisture Problems In Your Home? No Information not available 03/13/2023 What Was The Date Of Your Most Recent Tobacco Screening? 12/29/2023 [email or web address] Information not available 12/29/2023 Do You Have Any Pets? No MIGRATION.0301 503527 Information not available 04/10/2022 What Is Your Relationship Status? MIGRATION.0301 263408 Information not available 04/10/2022 Do You Use Your Seat Belt Or Car Seat Routinely? Yes MIGRATION.0301 [id number] Information not available 04/10/2022 Do You Have Smoke And Carbon Monoxide Detectors In Your Home? Yes MIGRATION.0301 484672 Information not available 04/10/2022 Are You Passively Exposed To Smoke? No MIGRATION.0301 223713 Information not available 04/10/2022 Do You Or Have You Ever Used Smokeless Tobacco? Never Used Smokeless Tobacco MIGRATION.0301 696671 Information not available 04/10/2022 Are There Any Smokers In Your House? No MIGRATION.0301 971405 Information not available 04/10/2022 How Much Tobacco Do You Smoke? No MIGRATION.0301 102860 Information not available 04/10/2022 What Types Of Sporting Activities Do You Participate In? None MIGRATION.0301 121532 Information not available 04/10/2022 Do You Feel Stressed (tense, Restless, Nervous, Or Anxious, Or Unable To Sleep At Night)? [id number] Information not available 08/18/2023 Do You Use Any Illicit Or Recreational Drugs? No MIGRATION.0301 592831 Information not available 04/10/2022 Do You Use Sunscreen Routinely? No MIGRATION.0301 308293 Information not available 04/10/2022 Has Tobacco Cessation Counseling Been Provided? No MIGRATION.0301 940610 Information not available 04/10/2022 How Many Years Have You Smoked Tobacco? -1 [email or web address] Information not available 08/18/2023 Have You Recently Traveled Abroad? No MIGRATION.0301 301901 Information not available 04/10/2022 Do You Have Any Dietary Restrictions? No MIGRATION.0301 438908 Information not available 04/10/2022 Do You Or Have You Ever Used Any Other Forms Of Tobacco Or Nicotine? No MIGRATION.0301 760362 Information not available 04/10/2022 Sex: Female Functional Status Question Answer Note LastModified by Organizat [employer] Details LastModified Time Do you have difficulty walking or climbing stairs? No MIGRATION.4747199 026 Information not available 04/10/2022 Do you have transportation difficulties? No MIGRATION.9906509 026 Information not available 04/10/2022 Are you able to walk? YESWOREST MIGRATION.1577051 026 Information not available 04/10/2022 Do you have difficulty doing errands alone? No MIGRATION.7126728 026 Information not available 04/10/2022 Are you able to care for yourself? Yes MIGRATION.7317543 026 Information not available 04/10/2022 Do you have difficulty dressing or bathing? No MIGRATION.0670339 026 Information not available 04/10/2022 What is your exercise level? None MIGRATION.5408775 026 Information not available 04/10/2022 Mental Status Question Answer Note LastModified by Organizat ion Details LastModified Time Do you have difficulty concentrating, remembering or making decisions? No MIGRATION.[id number] 6 Information not available 04/10/2022 Family History Relationship Description Onset Age of this Age Resolved Age Notes LastModified by Organization Details LastModified Time Father Diabetes mellitus MIGRATION.013 [id number] Not available 04/10/2022 03:14:45 Father Family history [...] 1 N POLIO N LUNG DISEASE/DISORDER N RADIATION / CHEMOTHERAPY N COPD N Other # 2 N BLOOD DISEASES N EAR OR HEARING PROBLEMS N MUMPS N BOWEL PROBLEMS N DEPRESSION (INCLUDING POST ) Y STROKE/TIA N THYROID DISEASE Y ULCERS N BENIGN PROSTATIC HYPERPLASIA N MEASLES N MYOCARDIAL INFARCTION N OBESITY Y GERD/NAUSEA Y ANEURYSM N URINARY/BLADDER/KIDNEY PROBLEMS Y CORONARY ARTERY DISEASE (CAD) N ADDICTION CONCERNS N ENDOMETRIOSIS N Impotence N USE OF BLOOD THINNERS Y SKIN [...] GLAUCOMA N FOOT PROBLEM N DIVERTICULITIS N CHICKENPOX N SLEEP APNEA Y ALLERGIES/HAYFEVER Y INFECTIOUS DISEASE N HEART ARRHYTHMIA N PROSTATE N INSOMNIA N HIGH CHOLESTEROL / HYPERLIPIDEMIA Y HYPERTHYROIDISM N EYE PROBLEMS N EDEMA N CHRONIC PAIN SYNDROME N [...] N ALZHEIMER'S DISEASE N Brain Problems N HERPES N DEMENTIA N HEADACHES/MIGRAINES N SEIZURES/EPILEPSY N VASCULAR DISEASE N PACEMAKER N Blood Disorder N DIZZINESS N HEART DISEASE/HEART PROBLEMS Y KIDNEY DISEASE N MULTIPLE SCLEROSIS N CARDIAC ARRHYTHMIA N CANCER: SPECIFY N ATRIAL FIBRILLATION N Gall Stones N [...] PF 0 completed Kristi Flower RMA null, [facility] 08/13/2023 11:55:32 COVID-19, mRNA, LNP-S, PF, 30 mcg/0.3 mL dose 2 completed Kristi Flower RMA null, [facility] 08/13/2023 11:55:32 COVID-19, mRNA, LNP-S, PF, 30 mcg/0.3 mL dose 1 completed Kristi Flower RMA null, [facility] 08/13/2023 11:55:32 COVID-19, mRNA, LNP-S, PF, 30 mcg/0.3 mL dose 1 completed Kristi Flower RMA null, [facility] 08/13/2023 11:55:32 COVID-19, mRNA, LNP-S, PF, 30 mcg/0.3 mL dose, mj-sucrose 2 completed Kristi Flower RMA null, [facility] 08/13/2023 11:55:32 Influenza, high-dose, trivalent, PF 5 completed Kristi Flower RMA null, [facility] 08/13/2023 11:55:32 Influenza, high-dose, trivalent, PF 7 completed Kristi Flower RMA null, [facility] 08/13/2023 11:55:32 Influenza, high-dose, trivalent, PF 6 completed Kristi Flower RMA null, [facility] 08/13/2023 11:55:33 SARS-COV-2 (COVID-19) vaccine, UNSPECIFIED 1 completed Kristi Flower, RMA null, [facility] 08/13/2023 11:55:32 SARS-COV-2 (COVID-19) vaccine, UNSPECIFIED 1 completed Kristi Mundo, RMA null, [facility] 08/13/2023 11:55:32 Influenza, high-dose, trivalent, PF 9 completed Kristi Mundo, RMA null, [facility] 08/13/2023 11:55:33 Influenza, high-dose, trivalent, PF 7 completed Kristi Clairton, RMA null, [facility] 08/13/2023 11:55:32 Influenza, high-dose, trivalent, PF 6 completed Kristi Mundo, RMA null, [facility] 08/13/2023 11:55:33 Influenza, high-dose, trivalent, PF 5 completed Kristi Boydham, RMA null, [facility] 08/13/2023 11:55:32 Tdap 0 completed Kristi Mundo, RMA null, [facility] 08/13/2023 11:55:32 Influenza, high-dose, trivalent, PF 0 completed Kristi Boydham, RMA null, [facility] 08/13/2023 11:55:33 Influenza, high-dose, trivalent, PF 4 completed Kristi Clairton, RMA null, [facility] 08/13/2023 11:55:32 Influenza, high-dose, trivalent, PF 3 completed Kristi Clairton, RMA null, [facility] 08/13/2023 11:55:32 Influenza, high-dose, quadrivalent, PF 2 completed Not Available [facility] 07/29/2022 09:34:24 Influenza, high-dose, quadrivalent, PF 1 completed Not Available [facility] 07/29/2022 09:34:24 pneumococcal polysaccharide PPV23 9 completed Not Available [facility] 07/29/2022 09:34:24 Influenza, high-dose, trivalent, PF 8 completed Not Available [facility] 07/29/2022 09:34:24 Pneumococcal conjugate PCV 13 8 completed Not Available [facility] 07/29/2022 09:34:24 Influenza, high-dose, quadrivalent, PF 3 completed Aditya Joyce MD [address], [facility] [address], [place], [address], [facility] [employer] 12/02/2022 17:56:33 Past Encounters Encounter ID Performer Location Encounter Start Date Encounter Closed Date Diagnosis/Indication Diagnosis SNOMED-CT Code Diagnosis ICD10 Code Diagnosis Note [id number] [facility] [place] [address] [place] [address] 06/19/2020 00:00:00 06/19/2020 14:22:26 [id number] [facility] [place] [address] [place] [address] 06/21/2020 00:00:00 06/21/2020 13:25:17 [id number] [facility] [place] [address] [place] [address] 08/01/2020 00:00:00 08/01/2020 12:57:26 [id number] [facility] [place] [address] [place] [address] 08/29/2020 00:00:00 08/29/2020 16:03:30 [id number] [facility] [place] [address] [place] [address] 10/23/2020 00:00:00 10/23/2020 14:29:56 [id number] [facility] [place] [address] [place] [address] 11/02/2020 00:00:00 11/02/2020 17:24:59 [id number] [facility] [place] [address] [place] [address] 04/02/2021 00:00:00 04/02/2021 11:59:31 [id number] [facility] [place] [address] [place] [address] 05/22/2021 00:00:00 05/22/2021 15:53:36 [id number] [facility] [place] [address] [place] [address] 06/19/2021 00:00:00 06/19/2021 15:10:11 [id number] [facility] [place] [address] [facility] [address] , [place] [address] 07/25/2021 00:00:00 07/25/2021 16:57:22 [id number] [facility] [place] [address] [place] [address] 08/21/2021 00:00:00 08/21/2021 14:35:56 [id number] [facility] [place] [address] [place] [address] 09/17/2021 00:00:00 09/17/2021 10:29:45 [id number] [facility] [place] [address] [place] [address] 11/01/2021 00:00:00 11/04/2021 16:36:10 [id number] [facility] [place] [address] [place] [address] 11/26/2021 00:00:00 11/26/2021 12:56:05 [id number] [facility] [place] [address] [place] [address] 12/05/2021 00:00:00 12/05/2021 12:08:16 [id number] [facility] [place] [address] [facility] [place] [address] 03/27/2022 00:00:00 03/27/2022 17:14:53 [id number] Aditya lancaster MD [facility] Internal [facility] [place] [address] [facility] [place] [address] 07/29/2022 11:49:50 07/29/2022 12:58:47 Type 2 diabetes mellitus without complication 188703514 E11.9 On metformin ER 500mg bidOn ozempic, does well denies any MCT, MEN2 or pancreatic issuesGet labs Does well Needs to see her eye Does see Dr Long on 11/02/2020 Screening - NAD 28188880 3 Z13.9 C-scope: 02/22/2014 : Dr Da [...] his understand ing of the above Hyperlipidemia 99614667 E78.5 On rosuvastat in 20mg daily Get labs Hypothyroidism 70677481 E03.9 On levothyrox ine 200mcgs dailyDoes wellRepeat the labs Restless legs 95203624 G 25.81 Not on requip now On tizanidine 4mg dailyDoes well Gastroesop hageal reflux disease without esophagitis 731394265 K21.9 S/p EGDOn nexium, take as needed only Does well Sinus tachycardia 071450 01 R00.0 s/p Stress test 08/24/2020 : NegS/p ECHO 08/24/2020 On metoprolol ER 25mg dailyOn lisinopril 10mg dailyDoes well Sees [facility] Dr Auguste last OV 09/19/2021 Thrombocyt openic disorder 863823033 D69.[address] Heart Last OV 03/13/2021 , f/u yearly Obstructiv e sleep apnea syndrome 48979666 G47.33 S/p sleep study 12/28/17Is using the CPAP and is very compliant 04/13/2019 : CT Chest: Deysi Butler, no acute intrathora cic process, thyrodi calcificat ions, F/u USOld granulomat os disease Keep apt with [employer] 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 Environmental allergy 42 6824001 T78.49XD On proairOn singulair Does well Forgetful 44038352 R41.3 Get labsS/p MRI brain 06/26/2020 May need to see neurology Pain of bi lateral knee joints 0429649390 33630 M25.561 M25.562 S/p jeff TKRsDr Richard 09/17/2021 Cirrhosis of liver 82495 007 K74.60 US Liver 06/26/2020 US liver 07/26/2021 : Nodular margins, cirrhosisG et an apt with GI hepatology Dr Roberts also, has seen Anastasia Francisco in 01/2021 liver 03/13/2022 , see case Moderate r ecurrent major depression 20736161 F33.1 On venlafaxin e ER 75mgs dailyDoes wellNot suicidal or homicidalD eclines any referral to psychiatry Can renew when needed Essential hypertension 15193917 I10 On lisinopril 5mg will cut this in half 07/29/2022 , as she feels the BP is low, bring BP logs in 2 weeksOn metoprolol ER 25mg daily, may need to adjust this [id number] [place] [facility], [facility] [place] [address] [place] [address] 09/11/2022 12:18:43 09/11/2022 14:57:32 Obstructive sleep apnea syndrome 65728953 G47.33 Split night study 12/28/17 with AHI [...] at least 4 hours prior to bedtime. [id number] ANTWAN Beckham [facility] [place] [address] [place] [address] 09/17/2022 14:48:10 09/17/2022 15:42:57 Pain of bilateral knee joints 7078668988 79782 M25.561 M25.562 History of bilateral total knee replacement 2241634315 927459 Z96.653 [id number] Dima Ramos MD [facility] [place] [address] [place] [address] 10/01/2022 14:48:35 10/01/2022 15:20:37 Pain of right shoulder joint 1534713274 0893109 M25.511 Osteoarthr 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 9975313266 27664 M19.507 [id number] Jewel loera MD [facility] General Surgery [address] [facility], [facility] [address] [place] [address] 11/05/2022 10:25:40 11/05/2022 11:59:15 [facility] [id number] R59.1 [id number] Aditya lancaster MD [facility] Internal [facility] [place] [address] [facility] [place] [address] 12/02/2022 11:55:51 12/02/2022 12:52:29 Screening - NAD 887831164 Z13.9 C-scope: 02/22/2014 : Dr Da Silva [...] Type 2 ofe betes mellitus without complication 934488839 E11.9 On metformin ER 500mg bidOn ozempic, does well denies any MCT, MEN2 or pancreatic issuesGet labs Does well Needs to see her eye MD Does see Dr Long on 11/02/2020 Hyperlipidemia 47505688 E78.5 On rosuvastat in 20mg daily Get labs Hypothyroidism 80323712 E03.9 On levothyrox ine 200mcgs daily,will decrease to 150mcgs dailyDoes wellRepeat the labs Restless legs 81845269 G 25.81 Not on requip now On tizanidine 4mg dailyDoes well Gastroesop hageal reflux disease without esophagitis 244537087 K21.9 S/p EGDOn nexium, take as needed only Does well Sinus tachycardia 255533 01 R00.0 s/p Stress test 08/24/2020 : NegS/p ECHO 08/24/2020 On metoprolol ER 25mg dailyOn lisinopril 5mg dailyDoes well Sees [facility] Dr Auguste last OV 09/19/2021 Thrombocyt openic disorder 434853324 D69.[address] Heart Last OV 03/13/2021 , f/u yearlyLast OV 03/19/2022 , f/u yearly Obstructiv e sleep apnea syndrome 37028947 G47.33 S/p sleep study 12/28/17Is using the CPAP and is very compliant 04/13/2019 : CT Chest: Deysi Butler, no acute intrathora cic process, thyrodi calcificat ions, F/u USOld granulomat os disease Keep apt with [employer] 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 09/11/2022 , next 04/22/2023 Environmental allergy 42 3714383 T78.49XD On proairOn singulair Does well Forgetful 60813909 R41.3 Get labs S/p MRI brain 06/26/2020 May need to see neurology Pain of bi lateral knee joints 7319858483 58199 M25.561 M25.562 S/p jeff TKRs Dr Ramos 09/17/2021 Cirrhosis of liver 17710 007 K74.60 US Liver 06/26/2020 US liver 07/26/2021 : Nodular margins, cirrhosisG et an apt with GI hepatology Dr Roberts also, has seen Anastasia Francisco in 01/2021 US liver 03/13/2022 , see case Moderate r ecurrent major depression 15166843 F33.1 On venlafaxin e ER 75mgs dailyDoes wellNot suicidal or homicidalD eclines any referral to psychiatry Can renew when needed Essential hypertension 13202367 I10 On lisinopril 5mgOn metoprolol ER 25mg daily, may need to adjust this COVID-19 908225445 U07.1 +ve 10/29/2022 , see case 10/29/2022 Pain of ri ght shoulder joint 6658901305 1142015 M25.511 Dr Ramos 10/01/2022 , s/p kenalog Chronic ki dney disease 085584505 N18.[address] Banks IJ Chronic neck pain 389495 3547 107 M54.2 Get Xray C-spineIf not better, get PT and may need to see IPC Administra tion of influenza vaccine 23885359 Z23 [id number] Fran Warner MD [facility] [place] [address] [place] [address], [facility] [address] [place] [address] 03/13/2023 11:59:32 03/14/2023 15:38:10 Obstructive sleep apnea syndrome 43649345 G47.33 [id number] Aditya lancaster MD [facility] Internal [facility] [address] [facility] , [facility] E [facility] [place] [place] [address] 03/31/2023 11:47:38 03/31/2023 12:49:59 Screening - NAD 302349561 Z13.9 C-scope: 02/22/2014 : Dr Da Silva [...] Type 2 ofe betes mellitus without complication 140734825 E11.9 On metformin ER 500mg bidOn ozempic, does well denies any MCT, MEN2 or pancreatic issuesGet labs Does well Needs to see her eye Does see Dr Long on 11/02/2020 Hyperlipidemia 86894661 E78.5 On rosuvastat in 20mg daily Get labs Hypothyroidism 62021112 E03.9 On levothyrox ine 100mcgs dailyDoes wellRepeat the labsGet US thyroid Restless legs 21527931 G 25.81 Not on requip now On tizanidine 4mg dailyDoes well Gastroesop hageal reflux disease without esophagitis 371119622 K21.9 S/p EGDOn nexium, take as needed only Does well Sinus tachycardia 786665 01 R00.0 s/p Stress test 08/24/2020 : NegS/p ECHO 08/24/2020 On metoprolol ER 25mg dailyOn lisinopril 5mg dailyDoes well Sees [facility] Dr Auguste last OV 09/19/2021 Thrombocyt openic disorder 082950158 D69.[address] Heart Last OV 03/13/2021 , f/u yearlyLast OV 03/19/2022 , f/u yearly Obstructiv e sleep apnea syndrome 24404412 G47.33 S/p sleep study 12/28/17Is using the CPAP and is very compliant 04/13/2019 : CT Chest: Deysi Butler, no acute intrathora cic process, thyrodi calcificat ions, F/u USOld granulomat os disease Keep apt with [employer] 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 09/11/2022 , next 04/22/2023 Environmental allergy 42 8415963 T78.49XD On proairOn singulair Does well Forgetful 67831735 R41.3 Get labs S/p MRI brain 06/26/2020 May need to see neurology Pain of bi lateral knee joints 3506940507 18729 M25.561 M25.562 S/p jeff TKRs Dr Ramos 09/17/2021 Cirrhosis of liver 16952 007 K74.60 US Liver 06/26/2020 US liver 07/26/2021 : Nodular margins, cirrhosisG et an apt with GI hepatology Dr Roberts also, has seen Anastasia Francisco in 01/2021 Anastasia Francisco FIELD 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 02/13/2023 , f/u in 6 monthsUS liver 03/13/2022 , see case Moderate r ecurrent major depression 76577429 F33.1 On venlafaxin e ER 75mgs dailyDoes wellNot suicidal or homicidalD eclines any referral to psychiatry Can renew when needed Essential hypertension 61455650 I10 On lisinopril 5mgOn metoprolol ER 25mg daily, may need to adjust this COVID-19 539874125 U07.1 +ve 10/29/2022 , see case 10/29/2022 Pain of ri ght shoulder joint 5971482342 5033105 M25.511 Dr Ramos 10/01/2022 , s/p kenalog Chronic ki dney disease 190879664 N18.[address] Banks IJ Chronic neck pain 036829 6115 107 M54.2 Get Xray C-spineIf not better, get PT and may need to see IPC Xray C-spine 12/02/2022 Screening for malignant neoplasm of colon 578020700 Z12.11 Pruritic rash 04171563 L 28.2 In the groin area, red and itchy, not examined today, no rash at present, would like a refill of nystatin-t riamcin[place] ne [id number] Fran Warner MD [facility] Pulmon[facility] [place] [address] 06/12/2023 12:02:56 06/13/2023 09:12:13 Obstructive sleep apnea syndrome 78287665 G47.33 [id number] Aditya lancaster MD [facility] Internal Med [place] [address] 06/25/2023 15:20:32 06/25/2023 16:19:01 Screening - NAD [id number] Z13.9 C-scope: 02/22/2014 : Dr Da Silva [...] Type 2 ofe betes mellitus without complication 540194513 E11.9 On metformin ER 500mg bidOn ozempic, does well denies any MCT, MEN2 or pancreatic issuesGet labs Does well Needs to see her eye MD Does see Dr Long on 11/02/2020 Hyperlipidemia 10875360 E78.5 On rosuvastat in 20mg daily Get labs Hypothyroidism 80357501 E03.9 On levothyrox ine 100mcgs dailyDoes wellRepeat the labsGet US thyroid Restless legs 19344278 G 25.81 Not on requip now On tizanidine 4mg dailyDoes well Gastroesop hageal reflux disease without esophagitis 342184849 K21.9 S/p EGDOn nexium, take as needed only Does well Sinus tachycardia 991210 01 R00.0 s/p Stress test 08/24/2020 : NegS/p ECHO 08/24/2020 On metoprolol ER 25mg dailyOn lisinopril 5mg dailyDoes well Sees [facility] Dr Auguste last OV 09/19/2021 Thrombocyt openic disorder 996400733 D69.[address] Heart Last OV 03/13/2021 , f/u yearlyLast OV 03/19/2022 , f/u yearly Obstructiv e sleep apnea syndrome 40117758 G47.33 S/p sleep study 12/28/17Is using the CPAP and is very compliant 04/13/2019 : CT Chest: Deysi Butler, no acute intrathora cic process, thyrodi calcificat ions, F/u USOld granulomat os disease Keep apt with [employer] 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 [employer] 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 09/11/2022 , next 04/22/2023 Environmental allergy 42 3625794 T78.49XD On proairOn singulair Does well Forgetful 60514610 R41.3 Get labs S/p MRI brain 06/26/2020 May need to see neurology Pain of bi lateral knee joints 2783460731 49212 M25.561 M25.562 S/p jeff TKRs Dr Ramos 09/17/2021 Cirrhosis of liver 65822 007 K74.60 US Liver 06/26/2020 US liver 07/26/2021 : Nodular margins, cirrhosisG et an apt with GI hepatology Dr Roberts also, has seen Anastasia Francisco in 01/2021 Anastasia Francisco FIELD 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 02/13/2023 , f/u in 6 monthsUS liver 03/13/2022 , see case Moderate r ecurrent major depression 26701687 F33.1 On venlafaxin e ER 75mgs dailyDoes wellNot suicidal or homicidalD eclines any referral to psychiatry Can renew when needed Essential hypertension 35269161 I10 On lisinopril 5mgOn metoprolol ER 25mg daily, may need to adjust this COVID-19 157292874 U07.1 +ve 10/29/2022 , see case 10/29/2022 Pain of ri ght shoulder joint 6637720449 7589437 M25.511 Dr Ramos 10/01/2022 , s/p kenalog Chronic ki dney disease 249758679 N18.[address] Banks IJ Chronic neck pain 152297 6172 107 M54.2 Get Xray C-spineIf not better, get PT and may need to see IPC Xray C-spine 12/02/2022 Screening for malignant neoplasm of colon 288289078 Z12.11 Pruritic rash 41385321 L 28.2 In the groin area, red and itchy, not examined today, no rash at present, would like a refill of nystatin-t riamcinolo ne Low back pain 338619936 M54.50 Xrays noted 06/24/2023 Already on the diclofenac given by Kobe Madrigal on flexerillN eeds another apt with ortho Osteoarthr itis of bilateral hip joints 0809525945 00288 M16.0 Has seen Kobe Madrigal another referral [id number] Aditya lancaster MD [facility] [place] [address] , [place] [address] 08/18/2023 10:28:33 08/18/2023 11:26:37 Adult health examination 730108290 Z00.00 Screening for disorder 460746958 Z13.9 Screening - NAD 40055637 3 Z13.9 C-scope: 02/22/2014 : Dr Da [...] Type 2 ofe betes mellitus without complication 680904956 E11.9 Not taking metformin ER 500mg bidOn ozempic, does well denies any MCT, MEN2 or pancreatic issuesGet labs Does wellNeeds to see her eye MD Does see Dr Long on 11/02/2020 Does not want heraclio Mast ill refer toDr Angeles Hyperlipidemia 40405278 E78.5 On rosuvastat in 20mg dailyGet labs Hypothyroidism 09086272 E03.9 On levothyrox ine 100mcgs dailyDoes wellRepeat the labsGet US thyroid Restless legs 25585844 G 25.81 Not on requip now On tizanidine 4mg dailyDoes well Gastroesop hageal reflux disease without esophagitis 424648466 K21.9 S/p EGDOn nexium, take as needed only Does well Sinus tachycardia 837550 01 R00.0 s/p Stress test 08/24/2020 : NegS/p ECHO 08/24/2020 On metoprolol ER 25mg dailyOn lisinopril 5mg dailyDoes well Sees [facility] Dr Auguste last OV 09/19/2021 Thrombocyt openic disorder 104166641 D69.[address] Heart Last OV 03/13/2021 , f/u yearlyLast OV 03/19/2022 , f/u yearly Obstructiv e sleep apnea syndrome 49576765 G47.33 S/p sleep study 12/28/17Is using the CPAP and is very compliant 04/13/2019 : CT Chest: Deysi Butler, no acute intrathora cic process, thyrodi calcificat ions, F/u USOld granulomat os disease Keep apt with [employer] 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 [place] 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 09/11/2022 Dr Warner last 06/12/2023 , next 4 Environmental allergy 42 7794660 T78.49XD On proairOn singulair Does well Forgetful 12124006 R41.3 Get labs S/p MRI brain 06/26/2020 May need to see neurology Pain of bi lateral knee joints 4465369864 52640 M25.561 M25.562 S/p jeff TKRs Dr Ramos 09/17/2021 Cirrhosis of liver 03188 007 K74.60 US Liver 06/26/2020 US liver 07/26/2021 : Nodular margins, cirrhosisG et an apt with GI hepatology Dr Roberts also, has seen Anastasia Francisco in 01/2021 Anastasia Gandhi FIELD 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 02/13/2023 , f/u in 6 monthsUS liver 03/13/2022 , see case Moderate r ecurrent major depression 24766297 F33.1 On venlafaxin e ER 75mgs dailyDoes wellNot suicidal or homicidalD eclines any referral to psychiatry Can renew when needed Essential hypertension 87785240 I10 On lisinopril 5mgOn metoprolol ER 25mg daily, may need to adjust this COVID-19 548335544 U07.1 +ve 10/29/2022 , see case 10/29/2022 Pain of ri ght shoulder joint 2658625528 7396467 M25.511 Dr Ramos 10/01/2022 , s/p kenalog Chronic ki dney disease 679824386 N18.[address] Banks IJ Chronic neck pain 423000 6032 107 M54.2 Get Xray C-spineIf not better, get PT and may need to see IPC Xray C-spine 12/02/2022 Screening for malignant neoplasm of colon 484776909 Z12.11 Pruritic rash 11572696 L 28.2 In the groin area, red and itchy, not examined today, no rash at present, would like a refill of nystatin-t riamcinolo ne Low back pain 601120728 M54.50 Xrays noted 06/24/2023 Already on the diclofenac given by Kobe Madrigal on flexerillN eeds another apt with ortho Osteoarthr itis of bilateral hip joints 0107178187 10168 M16.0 Has seen Kobe Madrigal another referral Screening for osteoporosis 599699755 Z13.820 Vitamin D deficiency 347 55842 E55.9 [id number] Aditya lancaster MD [facility] [place] [address] [facility] , [facility] [address] 11/24/2023 14:36:02 11/24/2023 15:26:53 Screening - NAD 527820196 Z13.9 C-scope: 02/22/2014 : Dr Da SilvaC-sco [...] Type 2 ofe betes mellitus without complication 965616646 E11.9 Not taking metformin ER 500mg bidOn ozempic, does well denies any MCT, MEN2 or pancreatic issues, will increase that ozempic to 1mg weeklyGet labs Does wellNeeds to see her eye MD Does see Dr Long on 11/02/[address] Faustinw ill refer to Dr Angeles Hyperlipidemia 38141953 E78.5 On rosuvastat in 20mg dailyGet labs Hypothyroidism 06633554 E03.9 On levothyrox ine 100mcgs dailyDoes wellRepeat the labsGet US thyroid Restless legs 89170492 G 25.81 Not on requip now On tizanidine 4mg dailyDoes well Gastroesop hageal reflux disease without esophagitis 003752107 K21.9 S/p EGDOn nexium, take as needed only Does well Sinus tachycardia 870399 01 R00.0 s/p Stress test 08/24/2020 : NegS/p ECHO 08/24/2020 On metoprolol ER 25mg dailyOn lisinopril 5mg dailyDoes well Sees [facility] Dr Auguste last OV 09/19/2021 Thrombocyt openic disorder 041739150 D69.[address] Heart Last OV 03/13/2021 , f/u yearlyLast OV 03/19/2022 , f/u yearlyOV 04/23/2023 : F/u yearly Obstructiv e sleep apnea syndrome 36040950 G47.33 S/p sleep study 12/28/17Is using the CPAP and is very compliant 04/13/2019 : CT Chest: Deysi Butler, no acute intrathora cic process, thyrodi calcificat ions, F/u USOld granulomat os disease Keep apt with [employer] 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 [place] 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 09/11/2022 Dr Warner last 06/12/2023 , next 12/25/2023 Environmental allergy 42 3603209 T78.49XD On proairOn singulair Does well Forgetful 47248607 R41.3 Get labsS/p MRI brain 06/26/2020 May need to see neurology Pain of bi lateral knee joints 8028645452 75579 M25.561 M25.562 S/p jeff TKRs Dr Ramos 09/17/2021 Cirrhosis of liver 77121 007 K74.60 US Liver 06/26/2020 US liver 07/26/2021 : Nodular margins, cirrhosisG et an apt with GI hepatology Dr Roberts also, has seen Anastasia Francisco in 01/2021 Anastasia Gandhi FIELD 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 02/13/2023 , f/u in 6 monthsUS liver 03/13/2022 , see case Moderate r ecurrent major depression 17978955 F33.1 On venlafaxin e ER 75mgs dailyDoes wellNot suicidal or homicidalD eclines any referral to psychiatry Can renew when needed Essential hypertension 02288359 I10 On lisinopril 5mgOn metoprolol ER 25mg daily, may need to adjust this COVID-19 731270670 U07.1 +ve 10/29/2022 , see case 10/29/2022 Pain of ri ght shoulder joint 9439412036 4026658 M25.511 Dr Ramos 10/01/2022 , s/p kenalog Chronic ki dney disease 247912608 N18.[address] Banks IJ Chronic neck pain 300698 1400 107 M54.2 Get Xray C-spineIf not better, get PT and may need to see IPC Xray C-spine 12/02/2022 Screening for malignant neoplasm of colon 522197297 Z12.11 Pruritic rash 33404693 L 28.2 In the groin area, red and itchy, not examined today, no rash at present, would like a refill of nystatin-t riamcinolo ne Low back pain 425619183 M54.50 Xrays noted 06/24/2023 Already on the diclofenac given by Kobe Madrigal on flexerillN eeds another apt with ortho Osteoarthr itis of bilateral hip joints 3598584206 64009 M16.0 Has seen Kobe Madrigal another referral Screening for osteoporosis 333723625 Z13.820 Vitamin D deficiency 347 16216 E55.9 [id number] Aditya lancaster MD [facility] [place] [address] [facility] [address] [place] [address] 12/29/2023 10:48:52 12/29/2023 12:31:05 Screening - NAD 890194551 Z13.9 C-scope: 02/22/2014 : Dr Da SilvaC-sco [...] Type 2 ofe betes mellitus without complication 939776893 E11.9 Not taking metformin ER 500mg bidOn ozempic, does well denies any MCT, MEN2 or pancreatic issues, will increase that ozempic to 1mg weeklyGet labs Does wellNeeds to see her eye MD Does see Dr Long on 11/02/2020 Does not want heraclio Mast ill refer to Dr Angeles Hyperlipidemia 30471565 E78.5 On rosuvastat in 20mg dailyGet labs Hypothyroidism 47622728 E03.9 On levothyrox ine 100mcgs dailyDoes wellRepeat the labsGet US thyroid Restless legs 74297871 G 25.81 Not on requip now On tizanidine 4mg dailyDoes well Gastroesop hageal reflux disease without esophagitis 785280526 K21.9 S/p EGDOn nexium, take as needed only Does well Sinus tachycardia 778350 01 R00.0 s/p Stress test 08/24/2020 : NegS/p ECHO 08/24/2020 On metoprolol ER 25mg dailyOn lisinopril 5mg dailyDoes well Sees [facility] Dr Auguste last OV 09/19/2021 Thrombocyt openic disorder 014500515 D69.[address] Heart Last OV 03/13/2021 , f/u yearlyLast OV 03/19/2022 , f/u yearlyOV 04/23/2023 : F/u yearly Obstructiv e sleep apnea syndrome 61087043 G47.33 S/p sleep study 12/28/17Is using the CPAP and is very compliant 04/13/2019 : CT Chest: Deysiholly Butler, no acute intrathora cic process, thyrodi calcificat ions, F/u USOld granulomat os disease Keep apt with [employer] 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 [place] 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 09/11/2022 Dr Warner last 06/12/2023 , next 12/25/2023 Environmental allergy 42 1092196 T78.49XD On proairOn singulair Does well Forgetful 24266083 R41.3 Get labsS/p MRI brain 06/26/2020 May need to see neurology Pain of bi lateral knee joints 2344145758 57230 M25.561 M25.562 S/p jeff TKRs Dr Ramos 09/17/2021 Cirrhosis of liver 37248 007 K74.60 US Liver 06/26/2020 US liver 07/26/2021 : Nodular margins, cirrhosisG et an apt with GI hepatology Dr Roberts also, has seen Anastasia Francisco in 01/2021 Anastasia Gandhi FIELD 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 02/13/2023 , f/u in 6 monthsUS liver 03/13/2022 , see case Moderate r ecurrent major depression 34114970 F33.1 On venlafaxin e ER 75mgs dailyDoes wellNot suicidal or homicidalD eclines any referral to psychiatry Can renew when needed Essential hypertension 68061784 I10 On lisinopril 5mgOn metoprolol ER 25mg daily, may need to adjust this COVID-19 200247774 U07.1 +ve 10/29/2022 , see case 10/29/2022 Pain of ri ght shoulder joint 8495365779 2208434 M25.511 Dr Ramos 10/01/2022 , s/p kenalog Chronic ki dney disease 286305656 N18.[address] Banks IJ Chronic neck pain 943175 7925 107 M54.2 Get Xray C-spineIf not better, get PT and may need to see IPC Xray C-spine 12/02/2022 Screening for malignant neoplasm of colon 189061680 Z12.11 Pruritic rash 27783176 L 28.2 In the groin area, red and itchy, not examined today, no rash at present, would like a refill of nystatin-t riamcinolo ne Low back pain 073070732 M54.50 Xrays noted 06/24/2023 Already on the diclofenac given by Kobe Madrigal on flexerillN eeds another apt with ortho Osteoarthr itis of bilateral hip joints 4713323569 77180 M16.0 Has seen Kobe Madrigal another referral Screening for osteoporosis 146087944 Z13.820 Vitamin D deficiency 347 49376 E55.9 Renewal of prescription 853415902 Z76.0 Health Concerns Section Related Observation LastModified by Organization Detai ls LastModified Time None Recorded Concern Status LastModified by Organization Details LastModified Time None Recorded Advance Directives Directive Y: asked to bring copy for c florez Payers Encounter Date Sequence Insurance Name Policy Number Policy Bush Covered Member ID Bush Member ID Guarantor Name 06/12/2023 1 [employer] (MEDICARE REPLACEMENT PPO) [id number] Mercedes L Zeisset [id number] Mercedes L Zeisset 06/25/2023 1 [employer] (MEDICARE REPLACEMENT PPO) [id number] Mercedes L Zeisset [id number] Mercedes L Zeisset 08/18/2023 1 [employer] (MEDICARE REPLACEMENT PPO) [id number] Mercedes L Zeisset [id number] Mercedes L Zeisset 11/24/2023 1 [employer] (MEDICARE REPLACEMENT PPO) [id number] 1 Mercedes L Zeisset [id number] Mercedes L Zeisset 12/29/2023 1 [employer] (MEDICARE REPLACEMENT PPO) [id number] 1 Mercedes L Zeisset [id number] Mercedes L Zeisset Notes Date Note Type Note Provider Name and Address Organization Details Recorded Time 06/12/2023 text/html Primary care/Ref erring provider: Aditya Joyce MD During the [facility] split sleep study on 12/28/17, AHI = 73. At home since 05/12/23, the patient uses a ResMed AirSense 11 autoset unit with heated humidification. The patient does not need the ramp to start low and go up slowly on the pressure anymore. There is some xerostomia in a.m. There is no hose/mask condensation with water.The patient switched from a Hassan & niid.to small Eson nasal mask to a ResMed [...] patient has a slight chance of dozing. Fran Warner MD [address] [place] [address], [facility] [address], [place], [address], [place] [facility] [employer] 06/12/2023 13:06:24 06/25/2023 text/html Here to darnell [...] review theseShe did see Dr Heart the warehouse delivery manager and is now to see a hepatologistOV [...] or bladder control Aditya Joyce MD [address] [facility], [facility] [address], [place], [address], [facility] [employer] 06/25/2023 17:50:17 08/18/2023 text/html Here to darnell [...] review theseShe did see Dr Heart the warehouse delivery manager and is now to see a hepatologistOV [...] her MWV also Aditya Joyce MD [address] [facility], [facility] [address], [place], [address], [facility] [employer] 08/18/2023 16:55:21 11/24/2023 text/html Here to darnell [...] here to review theseShe did see Dr Heatr the warehouse delivery manager and is now to see a hepatologistOV [...] the dose increased Aditya Joyce MD [address] [facility], [address], [place], [address], [place] [facility] [place] 11/24/2023 15:28:52 12/29/2023 text/html Here to darnell [...] review theseShe did see Dr Heart the warehouse delivery manager and is now to see a hepatologistOV [...] today Aditya Joyce MD [address], [facility] [address], [place], [address], [place] [facility] 12/29/2023 19:12:55 OBGyn Episode No OBEpisode recorded.
--- OUTSIDE RECORDS SUMMARY | 2024-03-24 09:24 | XMS_ITS | Continuity of Care Document ---
Author Organization [facility] [place] [address] [place] [address] [address] [place] [address] Phone Care Team Providers Care Transfer Engineer Name Role Phone Jurgen Diallo Unavailable Unavailable Procedures Procedure Date Post-op Follow-up Visit Post-op Follow-up Visit Remove Cataract, Insert Lens Eye Exam, New Patient Echo Exam Of Eye Advance Directives Directive Yes / No Effective Date File Name No Information Encounters Encounter Description Practice Location Reason(s) For Visit Diagnoses Date Provider Providers Copied on Encounter [facility], [address] [place] [address] [address], [place], [place], [id number], tel:[phone] [facility] No Information [address] Yoel Seaman. [address] [place] [address] , [address], [place], [place], [facility], . tel:[phone] Referring Provider: Fernie Byers, [address] [place] [address], [facility]. tel:[phone] [facility], [address] [place] [address] [address], [place], [place], [id number], tel:[phone] [facility] No Information [address] Yoel Seaman. [address] [place] [address] , [address], [place], [facility], [place]. tel:[phone] Referring Provider: Fernie Byers, [address] [place] [address], [facility]. tel:[phone] [facility], [address] [facility] [address], [place], [place], [id number], tel:[phone] [facility] No Information [facility] [place]. [address] [facility] , [address], [place], [facility], . tel:[phone] Referring Provider: Fernie Byers, [address] [place] [address], [facility]. tel:[phone] [facility], [address] [employer] [address], [place], [place], [address], tel:[phone] [facility] No Information [facility] [place]. [facility] [facility] , [address], [place], [place], [facility], . tel:[phone] Referring Provider: Fernie Byers, [address] [place] [address], [facility]. tel:[phone] Family History Family Member Type Diagnosis Age [...]
--- OUTSIDE RECORDS SUMMARY | 2024-03-24 09:24 | XMS_ITS | Clinical Summary ---
Author Organization [facility] Address [address] [place] [address] Care Team Providers Care Coo & Co Founder Name Role Phone Soy Joyce MD Primary [...] Type Department Care Team Description 03/12/2024 Abstract [facility] Oncology and Hematology - Richard [address] [place] [address] Danny Heart MD 03/11/2024 Telephone [facility] Oncology and Hematology [address] [place] [address] Danny Heart MD Surgical Clearance [...] Body Mass Index 36.88 03/13/2021 10:16 AM ALPINE GUIDE Plan of Treatment Upcoming Encounters Date Type Department Care Team (Late st Contact Info) Description 04/27/2024 11:00 AM CDT Office Visit [facility] Oncology and Hematology [facility] [address] [place] [address] Danny Heart MD [address] [facility] [address] [place] [address] Health Maintenance Due Date Last Done [...] 03/14/2021, 04/30/2020, Additional history exists [place] Preventative Visit/Annual Wellness Visit 02/11/2024 DTAP/TDAP/TD VACCINES [...] Maintenance Insurance [employer] PPO MCR Care Teams Coo [employer] Founder Relationship Specialty Start Date End Date Soy Joyce MD PCP - General Internal Medicine 12/23/17
--- OUTSIDE RECORDS SUMMARY | 2024-03-24 09:25 | XMS_ITS | Patient Health Record ---
Author Organization [facility] Address [address] [facility] [address] [place] [address] REASON FOR REFERRAL No Information MEDICATIONS Medication SIG (Take, Route, Frequency, Duration) Notes Start Date End Date Status Vitamin D (Ergocalciferol) 1.25 MG (51715 UT) TAKE 1 CAPSULE BY MOUTH EVERY OTHER WEEK for 30 Active PROBLEMS Problem Type ICD Code Onset Dates Problem Status W/U Status Risk SNOMED Code Notes Problem Type 2 diabetes mellitus with hyperglycemia (E11.65) Active confirmed Hyperglycemia due to type 2 diabetes mellitus (913972334348097 ) Problem Essential (primary) hypertension (I10) Active confirmed Essential hypertension (63208393) Problem Chronic kidney disease, stage 2 (mild) (N18.2) Active confirmed Chronic kidne y disease stage 2 (677289447) Problem Proteinuria, unspecified (R80.9) Active confirmed Proteinuria (40837498) PLAN OF TREATMENT No Information
--- OUTSIDE RECORDS SUMMARY | 2024-03-24 09:25 | XMS_ITS | Patient Health Summary ---
Author Organization [facility] Address [address] [place] [address] Care Team Providers Care Deck Mechanic Name Role Phone Soy Joyce MD Primary Care Provider Note from [facility],non-owned Affiliates and Associated Physician Practices is amultiple site organization consisting of ambulatory clinics and hospital sitesin [place], [place], [place] and [place]. This disclosure is being madepursuant to the Care Everywhere program and may not contain all information available regarding this patient. Last updated 17.[facility] Allergies No known active allergies Medications * [...] needed * Cholecalciferol (vitamin D3) 1.25 MG (94125 UT) capsule(Discontinued) Take 1 (one) capsule by [...] Comments Blood Pressure 133/72 03/04/2024 10:58 AM [employer] RECONNAISSANCE SPECIALIST Pulse 92 03/04/2024 10:58 AM ARM[employer] RECONNAISSANCE SPECIALIST Temperature 37.2 C (99 F) 03/04/2024 10:58 AM ARM[employer] RECONNAISSANCE SPECIALIST Respiratory Rate 18 02/13/2023 10:1 3 AM ARMOR RECONNAISSANCE SPECIALIST Oxygen Saturation 95% 03/04/2024 10: 58 AM ARMOR RECONNAISSANCE SPECIALIST Inhaled Oxygen Concentration - - Weight 100.1 kg (220 lb 9.6 oz) 025 10:58 AM ARMOR RECONNAISSANCE SPECIALIST Height 165.1 cm (5' 5 ) 03/04/2024 10:5 8 AM ARM[employer] RECONNAISSANCE SPECIALIST Body Mass Index 36.71 03/04/2024 10:58 AM ARMOR RECONNAISSANCE SPECIALIST Procedures * PT-INR [facility](Performed 03/04/2024) Performed for [...] W DIFF (EXTERNAL RESULT ENTRY)(Performed 03/05/2022) * [place] LIVER ELASTOGRAPHY(Performed 11/20/2021) Performed for Elevated liver [...] 05/10/2021) Performed for Elevated liver enzymes * [id number]-[id number] BLOOD PHENOTYPING PANEL(Performed 05/10/2021) Performed for Elevated [...] (EXTERNAL RESULT ENTRY)(Performed 02/20/2021) Results * PT-INR [facility] (03/04/2024 12:25 PM ARMOR RECONNAISSANCE SPECIALIST) Only the most recent of2 resultswithin the time period is included. PT 13.6 12.1 - 14.8 Seconds 03/04/2024 12:59 PM ARMOR RECONNAISSANCE SPECIALIST [facility] INR 1.1 See Comment 03/04/2024 12:59 PM ARMOR RECONNAISSANCE SPECIALIST [facility] Comment:The suggested therap eutic range for standard coumadin (warfarin) therapy is an INR of 2.0-3.0. For high-risk patients (Mechanical Mitral Valve Prosthesis, etc.), the suggested prophylactic therapeutic range is an INR of 2.5-3.5. Blood BLOOD SPECIMEN / Unknown Lab Venipuncture / Unknown 03/04/2024 12:25 PM ARM[employer] RECONNAISSANCE SPECIALIST 03/04/2024 12:34 PM ARM[employer] RECONNAISSANCE SPECIALIST Anastasia Gandhi COMMIS CHEF-LABELS MOLDER LAB - COAGU LATION ORDERABLES Performing Organization Address [facility] Co de Phone Number [address] [address], [facility] [phone] * ALPHA FETOPROTEIN BLOOD TUMOR MARKER (03/04/2024 12:25 PM ARMOR RECONNAISSANCE SPECIALIST) Only the most recent of2 resultswithin the time period is included. [facility] Alpha-Fetoprote in Tumor Marker 6.7 <=8.3 ng/mL 03/04/2024 1:22 PM [facility] Comment: AFP values will vary depending on testing procedure used. Results are not comparable across different methods. AFP values obtained by [facility] using an BYTEGRID Alinity Immunoassay. Blood BLOOD SPECIMEN / Unknown Lab Venipuncture / Unknown 03/04/2024 12:25 PM ARM[employer] RECONNAISSANCE SPECIALIST 03/04/2024 12:32 PM [employer]NAISSANCE SPECIALIST Anastasia Gandhi COMMIS CHEF-LABELS MOLDER LAB - CHEMI STRY ORDERABLES Performing Organization Address [facility] Co de Phone Number [address] [address], [facility] [phone] * (ABNORMAL) CBC WITH DIFFERENTIAL (03/04/2024 12:25 PM ARMOR RECONNAISSANCE SPECIALIST) Only the most recent of2 resultswithin the time period is included. [facility] WBC 5.5 4.0 - 10.7 x10E9/L 03/04/2024 12:39 PM [facility] RBC Count 4.76 3.90 - 5.20 x10E12/L 03/04/2024 12:39 PM [facility] Hemoglobin 14.6 11.9 - 15.8 g/dL 03/04/2024 12:39 PM [facility] Hematocrit 45.8 34.8 - 46.1 % 03/04/2024 12:39 PM [facility] MCV 96.2 80.0 - 98.0 fL 03/04/2024 12:39 PM [facility] MCH 30.7 26.7 - 33.6 pg 03/04/2024 12:39 PM [facility] MCHC 31.9 31.7 - 36.3 g/dL 03/04/2024 12:39 PM [facility] RDW-CV 13.7 11.3 - 14.8 % 03/04/2024 12:39 PM [facility] Platelet Count 149(L) 150 - 420 x10E9/L 03/04/2024 12:39 PM [facility] MPV 9.4 7.8 - 11.4 fL 03/04/2024 12:39 PM [facility] Neutrophil % 60.8 41.0 - 74.0 % 03/04/2024 12:39 PM [facility] Lymphocyte % 26.5 17.0 - 47.0 % 03/04/2024 12:39 PM [facility] Monocyte % 9.6 3.0 - 11.0 % 03/04/2024 12:39 PM [facility] Eosinophil % 2.2 0.0 - 7.0 % 03/04/2024 12:39 PM [facility] Basophil % 0.7 0.0 - 1.6 % 03/04/2024 12:39 PM [facility] Immature Granulocytes % 0.2 0.0 - 1.0 % 03/04/2024 12:39 PM [facility] Neutrophil Absolute 3.37 1.60 - 7.50 x10E9/L 03/04/2024 12:39 PM [facility] Lymphocyte Absolute 1.47 1.00 - 4.40 x10E9/L 03/04/2024 12:39 PM [facility] Monocyte Absolute 0.53 0.15 - 1.00 x10E9/L 03/04/2024 12:39 PM [facility] Eosinophil Absolute 0.12 0.00 - 0.60 x10E9/L 03/04/2024 12:39 PM [facility] Basophil Absolute 0.04 0.00 - 0.13 x10E9/L 03/04/2024 12:39 PM [facility] Blood BLOOD SPECIMEN / Unknown Lab Venipuncture / Unknown 03/04/2024 12:25 PM [employer] SPECIALIST 03/04/2024 12:32 PM [employer] SPECIALIST Anastasia Jannie Gandhi COMMIS CHEF-LABELS MOLDER LAB - HEMAT OLOGY ORDERABLES [facility] [address] [place] [address], [facility] [phone] * (ABNORMAL) COMPREHENSIVE METABOLIC PANEL (03/04/2024 12:25 PM [employer]NAISS[employer] SPECIALIST) Only the most recent of2 resultswithin the time period is included. BUN 16 7 - 26 mg/dL 03/04/2024 12:59 PM [facility] Creatinine 0.92 0.56 - 0.96 mg/dL 03/04/2024 12:59 PM [facility] Sodium 141 136 - 145 mmol/L 03/04/2024 12:59 PM [facility] Potassium 4.6(H) 3.5 - 4.5 mmol/L 03/04/2024 12:59 PM [facility] Chloride 106 98 - 107 mmol/L 03/04/2024 12:59 PM [facility] CO2 26 22 - 29 mmol/L 03/04/2024 12:59 PM [facility] Glucose 110(H) 70 - 99 mg/dL 03/04/2024 12:59 PM [facility] Calcium 9.7 8.4 - 10.2 mg/dL 03/04/2024 12:59 PM [facility] Protein Total 7.5 6.0 - 8.3 g/dL 03/04/2024 12:59 PM [facility] Albumin 4.0 3.4 - 5.0 g/dL 03/04/2024 12:59 PM [facility] Bilirubin Total 0.6 0.2 - 1.2 mg/dL 03/04/2024 12:59 PM [facility] Alkaline Phosphatase 51 40 - 150 U/L 03/04/2024 12:59 PM [facility] ALT 26 5 - 55 U/L 03/04/2024 12:59 PM [facility] AST 30 5 - 34 U/L 03/04/2024 12:59 PM [facility] Anion Gap 9 6 - 16 03/04/2024 12:59 PM [facility] BUN/Creatinine Ratio 17 7 - 23 03/04/2024 12:59 PM [facility] Osmolality Calculated 294 275 - 295 mOsm/kg 03/04/2024 12:59 PM [facility] Albumin/Globulin Ratio 1.1 1.1 - 2.3 03/04/2024 12:59 PM [facility] eGFR by CKD-EPI 63(L) >=90 mL/min/1.7 3 m2 03/04/2024 12:59 PM [facility] Blood BLOOD SPECIMEN / Unknown Lab Venipuncture / Unknown 03/04/2024 12:25 PM [employer]ISSANCE SPECIALIST 03/04/2024 12:32 PM [employer] RECONNAISSANCE SPECIALIST Anastasia N Gandhi COMMIS CHEF-LABELS MOLDER LAB - CHEMI STRY ORDERABLES [facility] [address] [place] [phone], [facility] [phone] * US ABDOMEN LIMITED (03/04/2024 10:33 AM ARMOR RECONNAISSANCE SPECIALIST) Only the most recent of4 resultswithin the time period is included. Anatomical Region Laterality Modality Abdomen Ultrasound 03/04/2024 10:4 5 AM ARM[employer] RECONNAISSANCE SPECIALIST Impressions 03/04/2024 11:22 AM ARMOR RECONNAISSANCE SPECIALIST Impression: 1.Liver Visualization Score A: No or minimal limitations. 2.US-2 Subthreshold. Repeat surveillance US in 3-6 months. 3.Redemonstrated hepatic cirrhosis with sequela of portal hypertension. Report drafted by Jeff Leggett MD (resident). I, Lila Pool MD have personally reviewed and interpreted this examination/study. > Interpreting Provider: Lila Pool MD on 03/04/2024 11:22 AM Narrative 03/04/2024 11:22 AM ARM[employer] RECONNAISSANCE SPECIALIST PROCEDURE: US ABDOMEN LIMITED DATE/TIME OF [...] MD on 03/04/2024 11:22 AM Anastasia Gandhi COMMIS CHEF-LABELS MOLDER US ORDERABL ES * (ABNORMAL) CBC W [...] - CHEMISTRY O DENAE Performing Organization Address City/[facility] de Phone Number OTHER LAB * [...] - CHEMISTRY O DENAE Performing Organization Address [facility] de Phone Number OTHER LAB * TSH (EXTERNAL RESULT ENTRY) (11/27/2022 9:45 AM CDT) Only the most recent of3 resultswithin the time period is included. TSH (EXTERNAL RESULT) 0.060 uIU/mL OTHER LAB Blood BLOOD SPECIMEN / Unknown 11/27/2022 9:45 AM CDT Historical Provider LAB - CHEMISTRY O DENAE Performing Organization Address City/[facility] Co de Phone Number OTHER LAB * T4 FREE (EXTERNAL RESULT ENTRY) (11/27/2022 9:45 AM CDT) Only the most recent of3 resultswithin the time period is included. T4 Free (EXTERNAL RESULT) 3.00 ng/dl OTHER LAB Blood BLOOD SPECIMEN / Unknown 11/27/2022 9:45 AM CDT Historical Provider LAB - CHEMISTRY O RDERAMICHAEL Performing Organization Address [facility] de Phone Number OTHER LAB * MICROALB/CREAT RATIO URINE (EXTERNAL RESULT ENTRY) (11/27/2022 9:45 AM CDT) Only the most recent of2 resultswithin the time period is included. Microalb/Creat Ratio (EXTERNAL RESULT) 84.4 mg/g OTHER LAB Urine URINE / Unknown 11/27/2022 9 :45 AM CDT Historical Provider LAB - URINE CHEMI STRY ORDERABLES Performing Organization Address [facility] de Phone Number OTHER LAB * HEMOGLOBIN A1C (EXTERNAL RESULT ENTRY) (11/27/2022 9:45 AM CDT) Only the most recent of3 resultswithin the time period is included. Hemoglobin A1c (EXTERNAL RESULT) 5.6 % OTHER LAB Blood BLOOD SPECIMEN / Unknown 11/27/2022 9:45 AM CDT Historical Provider LAB - CHEMISTRY O RDERAMICHAEL Performing Organization Address [facility] de Phone Number OTHER LAB * (ABNORMAL) PT INR (EXTERNAL RESULT ENTRY) (03/13/2022 8:46 AM ARM[employer] RECONNAISSANCE SPECIALIST) Only the most recent of2 resultswithin the time period is included. PT (EXTERNAL) 12.0(A) sec OTHER LAB INR (EXTERNAL RESULT) 1.2 OTHER LAB Blood BLOOD SPECIMEN / Unknown 03/13/2022 8:46 AM ARMOR RECONNAISSANCE SPECIALIST Historical Provider LAB - CHEMISTRY O RDSADI Performing Organization Address [facility] de Phone Number OTHER LAB * AFP (EXTERNAL RESULT ENTRY) (03/13/2022 8:46 AM ARM[employer] RECONNAISSANCE SPECIALIST) Alpha-Fetoprote in (EXTERNAL RESULT) 5.1 OTHER LAB Blood BLOOD SPECIMEN / Unknown 03/13/2022 8:46 AM ARMOR RECONNAISSANCE SPECIALIST Historical Provider LAB - CHEMISTRY O RDSADI Performing Organization Address [facility] de Phone Number OTHER LAB * VITAMIN D HYDROXY (EXTERNAL RESULT) (03/05/2022 9:52 AM ARMOR RECONNAISSANCE SPECIALIST) Vitamin D Hydroxy (External Result) 69.6 OTHER LAB Blood 03/05/2022 9:52 AM ARMOR RECONNAISSANCE SPECIALIST Historical Provider LAB - CHEMISTRY O DENAE Performing Organization Address [facility] de Phone Number OTHER LAB * [...] patients with nonalcoholic fatty liver disease. Gastroenterology 2019;156:0034-1222. [place] MS, Ирина R, [place] Cristy ML, [...] FIB4 score (Davyduke et al. [employer] 2019;3:5218-5135) or NAFLD Fibrosis score (Richmond et al. Clinical Gastroenterology and Hepatology 2019;17:4218-6744. from routine clinical data. 3. Liver stiffness [...] change as additional supporting data becomes available. [email or web address] Anastasia Gandhi COMMIS CHEF-LABELS MOLDER PROCEDURE/M INOR SURGICAL ORDERABLES * SMOOTH MUSCLE ANTIBODY W REFLEX TITER (05/10/2021 3:05 PM CDT) F-Actin Antibody IgG 19 0 - 19 Units 05/12/2021 7:42 AM CDT [employer] ([facility]) Comment: If F-Actin (Smooth Muscle) Antibody, IgG [...] suspicion for AIH is strong. Performed By: [employer] [address] [place] [address] Data Control Assistant: Inge Mims MD Blood BLOOD SPECIMEN / Unknown Lab Venipuncture / Unknown 05/10/2021 3:05 PM CDT 05/10/2021 4:02 PM CDT Anastasia Gandhi COMMIS CHEF-LABELS MOLDER LAB - SEROL OGY ORDERABLES [employer] ([facility]) [address] [place] [address], [facility] * MITOCHONDRIAL ANTIBODY SCREEN (05/10/2021 3:05 PM CDT) Mitochondrial M2 Antibody 6.7 0.0 - 24.9 Units 05/12/2021 7:42 AM CDT [facility] [employer] ([facility]) Comment: REFERENCE INTERVAL: Mitochondrial (M2) Antibody, IgG [...] does not rule out PBC. Performed By: [employer] [address] [place] [address] Data Control Assistant: Inge Mims MD Blood BLOOD SPECIMEN / Unknown Lab Venipuncture / Unknown 05/10/2021 3:05 PM CDT 05/10/2021 4:02 PM CDT Anastasia Gandhi COMMIS CHEF-LABELS MOLDER LAB - CHEMI STRY ORDERABLES [facility] [employer] [facility]) [address] [place] [address], [facility] * [id number] BLOOD PHENOTYPING PANEL (05/10/2021 3:05 PM CDT) Pathologist [facility] Ipndx-7-Inlnufsmpa n Phenotype M1M1 05/14/2021 4:52 PM CDT [facility] ([facility]) Comment: The patient appears to have a normal phenotype. All M alleles (including subtypes M1, M2, and M3) produce normal serum concentrations of cwodf-8-dayexsdd inhibitor and are not associated with clinical disease. Caution in interpretation is advised if the patient has been transfused within the previous 21 days. Performed By: [employer] [address] [place] [address] Data Control Assistant: Inge Mims MD Lvtxd-9-Jghrixfxwb n 163 90 - 200 mg/dL 05/14/2021 4:52 PM CDT [employer] ([facility]) Comment:To convert to umol/L , multiply mg/dL by 0.185 Blood BLOOD SPECIMEN / Unknown Lab Venipuncture / Unknown 05/10/2021 3:05 PM CDT 05/10/2021 4:02 PM CDT [facility]ast[facility] LAB - CHEMI STRY ORDERABLES [email or web address] [facility]) [address] [place] [address], [facility] * KAIT BLOOD SCREEN W/REFLEX TITER (05/10/2021 3:05 PM CDT) KAIT IgG None Detected None Detected 05/12/2021 9:16 PM CDT [email or web address] ([facility]) Comment: If suspicion of connective tissue disease is strong and KAIT EIA is negative, consider testing for KAIT by IFA ([id number]). INTERPRETIVE INFORMATION: Anti-Nuclear Antibodies (KAIT), IgG by FORTINO Antinuclear Antibodies (KAIT), IgG by FORTINO: KAIT specimens are screened using enzyme-linked immunosorbent assay (FORTINO) methodology. All FORTINO results reported as Detected are further tested by indirect fluorescent assay (IFA) using HEp-2 substrate with an IgG-specific conjugate. The KAIT FORTINO screen is designed to detect antibodies against dsDNA, histones, SS-A (Ro), SS-B (La), [place], [place]/KIER HAND, Scl-70, Jennifer-1, centromeric proteins, other antigens extracted from the HEp-2 cell nucleus. KAIT FORTINO assays have been reported to have lower sensitivities than KAIT IFA for systemic autoimmune rheumatic diseases (SARD). Negative results do not necessarily rule out SARD. Performed By: [employer] [address] [place] [address] Data Control Assistant: Inge Mims MD Blood BLOOD SPECIMEN / Unknown Lab Venipuncture / Unknown 05/10/2021 3:05 PM CDT 05/10/2021 4:02 PM CDT Anastasia WYATT LAB - CHEMI STRY ORDERABLES [facility] [employer] ([facility]) [address] [place] [id number], [facility] * CERULOPLASMIN (05/10/2021 3:05 PM CDT) Ceruloplasmin 32 20 - 60 mg/dL 05/10/2021 4:25 PM CDT [facility] Blood BLOOD SPECIMEN / Unknown Lab Venipuncture / Unknown 05/10/2021 3:05 PM CDT 05/10/2021 4:02 PM CDT Anastasia Gandhi APRN-LABELS MOLDER LAB - CHEMI STRY ORDERABLES Performing Organization Address City/[facility]/ZIP Co de Phone Number [address] [address], [place] [phone] * HEPATITIS B CORE ANTIBODY (05/10/2021 3:05 PM CDT) HBc Antibody Total Non-reacti ve Non-reacti ve 05/10/2021 4:44 PM CDT [facility] Blood BLOOD SPECIMEN / Unknown Lab Venipuncture / Unknown 05/10/2021 3:05 PM CDT 05/10/2021 4:02 PM CDT Anastasia Gandhi APRN-LABELS MOLDER LAB - CHEMI STRY ORDERABLES [address] [address], [place] [phone] * IGG BLOOD (05/10/2021 3:05 PM CDT) IgG 998 767-1,590 mg/dL 05/10/2021 4:27 PM CDT [facility] Blood BLOOD SPECIMEN / Unknown Lab Venipuncture / Unknown 05/10/2021 3:05 PM CDT 05/10/2021 4:02 PM CDT Anastasia Gandhi COMMIS CHEF-LABELS MOLDER LAB - CHEMI STRY ORDERABLES [facility] [address] [place] [address], [facility] [phone] * FERRITIN (EXTERNAL RESULT ENTRY) (02/20/2021) Ferritin (EXTERNAL RESULT) 14 Blood BLOOD SPECIMEN / Unknown 02/20/2021 Soy Joyce MD LAB - CHEMISTRY ORDERABLES * IRON/SATURATION (EXTERNAL RESULT ENTRY) (02/20/2021) Iron (EXTERNAL RESULT) 120 mcg/dl Transferrin (EXTERNAL RESULT) Transferrin Saturation (EXTERNAL RESULT) 29 % Blood BLOOD SPECIMEN / Unknown 02/20/2021 [facility]ast[facility] LAB - CHEMI STRY ORDERABLES Care Teams Deck Mechanic Relationship Specialty Start Date End Date Soy Joyce MD [address] [phone] PCP - General 02/04/21
--- OUTSIDE RECORDS SUMMARY | 2024-03-24 09:25 | XMS_ITS | Referral Summary ---
Author Organization [facility] Address [address] [place] [address] Care Team Providers Care Portfolio Manager Name Role Phone Soy Joyce MD Primary Care Provider Source Comments [facility],non-owned Affiliates and Associated Physician Practices is amultiple site organization consisting of ambulatory clinics and hospital sitesin [place], [place], [place] and [place]. This disclosure is being madepursuant to the Care Everywhere program and may not contain all information available regarding this patient. 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); Metabolic dysfunction-associated steatohepatitis (MASH); Thrombocytopenia, unspecified (HCC); Metabolic syndrome 03/04/2024 10:05 AM WILD ANIMAL CARETAKER - 03/04/2024 11:46 AM WILD ANIMAL CARETAKER Hospital Encounter [facility] [address] [place] [address] nAastasia Gandhi APRN-CNP Discharge Disposition: Home or Self [...] d(List Clean-Up) Cholecalciferol (vitamin D3) 1.25 MG (07616 UT) capsule Take 1 (one) capsule by [...] Comments Blood Pressure 133/72 03/04/2024 10:58 AM WILD ANIMAL CARETAKER Pulse 92 03/04/2024 10:58 AM WILD ANIMAL CARETAKER Temperature 37.2 C (99 F) 03/04/2024 10:58 AM WILD ANIMAL CARETAKER Respiratory Rate 18 02/13/2023 10:1 3 AM WILD ANIMAL CARETAKER Oxygen Saturation 95% 03/04/2024 10: 58 AM WILD ANIMAL CARETAKER Inhaled Oxygen Concentration - - Weight 100.1 kg (220 lb 9.6 oz) 025 10:58 AM WILD ANIMAL CARETAKER Height 165.1 cm (5' 5 ) 03/04/2024 10:5 8 AM WILD ANIMAL CARETAKER Body Mass Index 36.71 03/04/2024 10:58 AM WILD ANIMAL CARETAKER Plan of Treatment Upcoming Encounters Date Type Department Care Team (Late st Contact Info) Description 04/03/2024 9:30 AM WILD ANIMAL CARETAKER Appointment [facility] [address] [place] [address] Anastasia Gandhi, IT PORTFOLIO MANAGER-FIRMWARE DEVELOPER [address] [facility] [address]F [place] [address] Goals Goal Patient Goal Type Associated Problems Recent Progress Patient-Stated? Author Medication Management General On track( 10:55 AM WILD ANIMAL CARETAKER) No Lana Shultz RN Note: Expected end date: Ongoing Interventions: Take all medications as prescribed Let your doctor know right away about any changes in your medications Make sure to request a refill of your medication at least one week prior to your last dose Safety General On track( 11:03 AM WILD ANIMAL CARETAKER) No Neida Javed RN Note: Expected end [...] Comments PT-INR [facility] Routine 03/04/2024 12:25 PM WILD ANIMAL CARETAKER 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) Liver lesion COMPREHENSIVE METABOLIC PANEL Routine 03/04/2024 12:25 PM WILD ANIMAL CARETAKER 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) Liver lesion CBC W AUTO DIFFERENTIAL Routine 03/04/2024 12:25 PM WILD ANIMAL CARETAKER 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) Liver lesion ALPHA FETOPROTEIN BLOOD TUMOR MARKER Routine 03/04/2024 12:25 PM WILD ANIMAL CARETAKER 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) Thrombocytopenia, unspecified (HCC) Metabolic syndrome US ABDOMEN LIMITED Routine 03/04/2024 10 :33 AM WILD ANIMAL CARETAKER 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) MICROALB/CREAT RATIO URINE (EXTERNAL RESULT ENTRY) Routine 11/27/2022 9:45 AM CDT HEMOGLOBIN A1C (EXTERNAL RESULT ENTRY) Routine 11/27/2022 9:45 AM CDT from Last 3 Months or Most Recently Relevant to Health Maintenance Results * PT-INR [facility] (03/04/2024 12:25 PM WILD ANIMAL CARETAKER) Pathologist [facility] PT 13.6 12.1 - 14.8 Seconds 03/04/2024 12:59 [address] [facility] INR 1.1 See Comment 03/04/2024 12:59 PM [facility] Comment:The suggested therap eutic range for standard coumadin (warfarin) therapy is an INR of 2.0-3.0. For high-risk patients (Mechanical Mitral Valve Prosthesis, etc.), the suggested prophylactic therapeutic range is an INR of 2.5-3.5. Blood BLOOD SPECIMEN / Unknown Lab Venipuncture / Unknown 03/04/2024 12:25 PM WILD ANIMAL CARETAKER 03/04/2024 12:34 PM WILD ANIMAL CARETAKER Anastasia Gandhi [facility] - COAGU LATION ORDERABLES Performing Organization Address [facility]/ZIP Co de Phone Number [address] [address], [facility] [phone] * ALPHA FETOPROTEIN BLOOD TUMOR MARKER (03/04/2024 12:25 PM WILD ANIMAL CARETAKER) [facility] Alpha-Fetoprote in Tumor Marker 6.7 <=8.3 ng/mL 03/04/2024 1:22 PM WILD ANIMAL CARETAKER [facility] Comment: AFP values will vary depending on testing procedure used. Results are not comparable across different methods. AFP values obtained by [facility] using an Holland Alinity Immunoassay. Blood BLOOD SPECIMEN / Unknown Lab Venipuncture / Unknown 03/04/2024 12:25 PM WILD ANIMAL CARETAKER 03/04/2024 12:32 PM WILD ANIMAL CARETAKER Anastasia Gandhi IT PORTFOLIO [facility] - CHEMI STRY ORDERABLES Performing Organization Address [facility]/ZIP Co de Phone Number [address] [address], [facility] [phone] * (ABNORMAL) CBC WITH DIFFERENTIAL (03/04/2024 12:25 PM [facility]) WBC 5.5 4.0 - 10.7 x10E9/L 03/04/2024 12:39 PM [facility] RBC Count 4.76 3.90 - 5.20 x10E12/L 03/04/2024 12:39 PM [facility] Hemoglobin 14.6 11.9 - 15.8 g/dL 03/04/2024 12:39 PM [facility] Hematocrit 45.8 34.8 - 46.1 % 03/04/2024 12:39 PM [facility] MCV 96.2 80.0 - 98.0 fL 03/04/2024 12:39 PM [facility] MCH 30.7 26.7 - 33.6 pg 03/04/2024 12:39 PM [facility] MCHC 31.9 31.7 - 36.3 g/dL 03/04/2024 12:39 PM [facility] RDW-CV 13.7 11.3 - 14.8 % 03/04/2024 12:39 PM [facility] Platelet Count 149(L) 150 - 420 x10E9/L 03/04/2024 12:39 PM [facility] MPV 9.4 7.8 - 11.4 fL 03/04/2024 12:39 PM [facility] Neutrophil % 60.8 41.0 - 74.0 % 03/04/2024 12:39 PM [facility] Lymphocyte % 26.5 17.0 - 47.0 % 03/04/2024 12:39 PM [facility] Monocyte % 9.6 3.0 - 11.0 % 03/04/2024 12:39 PM [facility] Eosinophil % 2.2 0.0 - 7.0 % 03/04/2024 12:39 PM [facility] Basophil % 0.7 0.0 - 1.6 % 03/04/2024 12:39 PM [facility] Immature Granulocytes % 0.2 0.0 - 1.0 % 03/04/2024 12:39 PM [facility] Neutrophil Absolute 3.37 1.60 - 7.50 x10E9/L 03/04/2024 12:39 PM [facility] Lymphocyte Absolute 1.47 1.00 - 4.40 x10E9/L 03/04/2024 12:39 PM [facility] Monocyte Absolute 0.53 0.15 - 1.00 x10E9/L 03/04/2024 12:39 PM [facility] Eosinophil Absolute 0.12 0.00 - 0.60 x10E9/L 03/04/2024 12:39 PM [facility] Basophil Absolute 0.04 0.00 - 0.13 x10E9/L 03/04/2024 12:39 PM [facility] Blood BLOOD SPECIMEN / Unknown Lab Venipuncture / Unknown 03/04/2024 12:25 PM WILD ANIMAL CARETAKER 03/04/2024 12:32 PM [facility] Anastasia Gandhi IT PORTFOLIO MANAGER-FIRMWARE DEVELOPER LAB - HEMAT OLOGY ORDERABLES Performing Organization Address City/[facility] Co de Phone Number [facility] [address] [place] [phone] [phone] * (ABNORMAL) COMPREHENSIVE METABOLIC PANEL (03/04/2024 12:25 PM WILD ANIMAL CARETAKER) BUN 16 7 - 26 mg/dL 03/04/2024 12:59 PM [facility] Creatinine 0.92 0.56 - 0.96 mg/dL 03/04/2024 12:59 PM [facility] Sodium 141 136 - 145 mmol/L 03/04/2024 12:59 PM [facility] Potassium 4.6(H) 3.5 - 4.5 mmol/L 03/04/2024 12:59 PM [facility] Chloride 106 98 - 107 mmol/L 03/04/2024 12:59 PM [facility] CO2 26 22 - 29 mmol/L 03/04/2024 12:59 PM [facility] Glucose 110(H) 70 - 99 mg/dL 03/04/2024 12:59 PM [facility] Calcium 9.7 8.4 - 10.2 mg/dL 03/04/2024 12:59 PM [facility] Protein Total 7.5 6.0 - 8.3 g/dL 03/04/2024 12:59 PM [facility] Albumin 4.0 3.4 - 5.0 g/dL 03/04/2024 12:59 PM [facility] Bilirubin Total 0.6 0.2 - 1.2 mg/dL 03/04/2024 12:59 PM [facility] Alkaline Phosphatase 51 40 - 150 U/L 03/04/2024 12:59 PM [facility] ALT 26 5 - 55 U/L 03/04/2024 12:59 PM [facility] AST 30 5 - 34 U/L 03/04/2024 12:59 PM [facility] Anion Gap 9 6 - 16 03/04/2024 12:59 PM [facility] BUN/Creatinine Ratio 17 7 - 23 03/04/2024 12:59 PM [facility] Osmolality Calculated 294 275 - 295 mOsm/kg 03/04/2024 12:59 PM [facility] Albumin/Globulin Ratio 1.1 1.1 - 2.3 03/04/2024 12:59 PM [facility] eGFR by CKD-EPI 63(L) >=90 mL/min/1.7 3 m2 03/04/2024 12:59 PM [facility] Blood BLOOD SPECIMEN / Unknown Lab Venipuncture / Unknown 03/04/2024 12:25 PM WILD ANIMAL CARETAKER 03/04/2024 12:32 PM WILD ANIMAL CARETAKER Anastasia Gandhi IT PORTFOLIO MANAGER-FIRMWARE DEVELOPER LAB - CHEMI STRY ORDERABLES [facility] [address] [place] [address], [facility] [phone] * US ABDOMEN LIMITED (03/04/2024 10:33 AM WILD ANIMAL CARETAKER) Anatomical Region Laterality Modality Abdomen Ultrasound 03/04/2024 10:4 5 AM WILD ANIMAL CARETAKER Impressions 03/04/2024 11:22 AM WILD ANIMAL CARETAKER Impression: 1.Liver Visualization Score A: No or minimal limitations. 2.US-2 Subthreshold. Repeat surveillance US in 3-6 months. 3.Redemonstrated hepatic cirrhosis with sequela of portal hypertension. Report drafted by Jeff Leggett MD (resident). I, Lila Pool MD have personally reviewed and interpreted this examination/study. > Interpreting Provider: Lila Pool MD on 03/04/2024 11:22 AM Narrative 03/04/2024 11:22 AM WILD ANIMAL CARETAKER PROCEDURE: US ABDOMEN LIMITED DATE/TIME OF EXAM: [...] MD on 03/04/2024 11:22 AM Anastasia Gandhi IT PORTFOLIO MANAGER-FIRMWARE DEVELOPER US ORDERABL ES * MICROALB/CREAT RATIO URINE [...] Recently Relevant to Health Maintenance Care Teams Portfolio Manager Relationship Specialty Start Date End Date Soy Joyce MD [address] [facility] [address] [place] [address] PCP - General 02/04/21
--- OUTSIDE RECORDS SUMMARY | 2024-03-24 09:25 | XMS_ITS | CONTINUITY OF CARE DOCUMENT ---
Author Name amira collier Address Unknown Organization [facility] Address [address] [facility] [address] [place] [address] Phone [phone] Care Team Providers Care Lead Welder Name Role Phone Stacy Auguste MD Unavailable ADITYA LOPEZ MD Unavailable ADITYA LOPEZ MD Unavailable PROBLEMS Condition Status Date Provider Notes Shortness of breath with exertion active Yao Auguste MD Diabetes mellitus active Stacy Auguste MD Venous insufficiency active Stacy Auguste MD HTN essential active Stacy Auguste MD Obesity active Stacy Auguste MD Abnormal LFT's active Stacy Auguste MD GERD active Stacy Auguste MD Hx of DVT, treated w Xarelto active Velma Auguste MD Hyperlipidemia active ? Stacy Auguste MD MINA - On CPAP active Stacy Auguste MD Hypothyroidism active Stacy Auguste MD Family History of Hypertension: [...] In-person encounter Office Visit Stacy Auguste MD [place] [facility] - In-person encounter Office Visit Stacy Auguste MD [facility] - In-person encounter Office Visit Stacy Auguste MD [place] [facility] - In-person encounter Office Visit Stacy Auguste MD [place] [facility] Shortness of breath with exertion - In-person encounter Office Visit Stacy Auguste MD [place] [facility] - In-person encounter Office Visit Stacy Auguste MD [place] Diabetes mellitus - In-person encounter Office Visit Stacy Auguste MD [place] [facility] - In-person encounter Office Visit Stacy Auguste MD [facility] Venous insufficiency - In-person encounter Office Visit Stacy Auguste MD [place] [facility] Family History of CVA or Stroke:Family History of Hyperlipidemia:Family History of Hypertension:Family History of Hyperlipidemia:Family History of Hypertension:MINA - On CPAPHTN essential - In-person encounter Office Visit Stacy Auguste MD [place] [facility] HTN essential - In-person encounter Office Visit Stacy Auguste MD [place] [facility] HypothyroidismOSA - On CPAPHyperlipidemiaHx of DVT, [...] MD blood pressure, diastolic 70 mm[Hg] [facility] blood pressure, systolic 130 mm[Hg] Missy shearer Paton oxygen saturation, oximetry 97 % [facility] respiratory rate E&M 16 /min [facility] pulse rate 79 /min [facility] weight E&M 227 [lb_av] Tatum Mendiola height E&M 65 [in_i] [facility] Body Mass Index (Ratio) 37.60 kg/m2 Alexander Auguste MD blood pressure, diastolic 80 mm[Hg] [facility] blood pressure, systolic 140 mm[Hg] Missy shearer Paton oxygen saturation, oximetry 95 % [facility] respiratory rate E&M 16 /min [place] Mendiola pulse rate 96 /min Tatum Mendiloa weight E&M 226 [lb_av] [place] Mendiola height E&M 65 [in_i] Tatum Mendiola Body Mass Index (Ratio) 39.43 kg/m2 Nguyen ssa Puhse blood pressure, diastolic 88 mm[Hg] Da salas Jurgen blood pressure, systolic 168 mm[Hg] Dac ia Jurgen oxygen saturation, oximetry 94 % Rosanna [place] respiratory rate E&M 16 /min Rosanna V oss pulse rate 99 /min [facility]anna [place] weight E&M 237 [lb_av] Rosanna Jurgen height E&M 65 [in_i] [facility] Body Mass Index (Ratio) 38.44 kg/m2 Alexander [...] tablet by mouth once a day Frances Elliosn ropinirole 0.25 mg tablet completed Take 1 [...] Allergy Relief 50 mcg/actuation spray,suspensio n active Delta into both nostrils twice a day Marla Li alprazolam 0.25 mg tablet active Take 1 tablet by mouth once a day as needed Frances Ellison VITAMIN D (ERGOCALCIFEROL ) 55132 UNIT ORAL CAPSULE completed Take once a [...] Payer name Policy type / Coverage type [place] red democrat ID [facility] MEDICARE ADVANTAGE (PPO) Other [id number] ADVANCE DIRECTIVES Name Date POWER OF GIN POLE OPERATOR TREATMENT PLAN Date Name Performer [id number],C,C ontinues on Rosuvastatin. We aim for an LDL <70. Stacy Auguste MD [id number],C,T he patient is using CPAP on a regular basis. The patient has been benefiting from therapy and should continue use. Stacy Auguste MD [id number],C,On levothyrox ine. Stacy Auguste MD [id number],C,On metformin 500mg BID. Stacy Auguste MD [id number],C,B P elevated, dietary compliance stressed. Also asked her to increase lisinopril to 10mg daily, and monitor BP on a regular basis. Stacy Auguste MD [id number],C, W eight loss advised Stacy Auguste MD [id number],C, C ontinues on replacement therapy. Stacy Auguste MD [id number],C, C ontinues on Rosuvastatin. We aim for an LDL <70. Stacy Auguste MD [id number],C, C ontinues on Metformin. Stacy Auguste MD [id number],C, H er echo 08/24/2020 showed normal LV function. EF 60%. Nuclear stress test 08/24/2020 showed normal perfusion. The patient has been reassured. Weight reduction advised. Stacy Auguste MD [id number],C, B P today elevated at 150/83. Advised she monitor at home. Stacy Auguste MD [id number],C, A bdominal US 06/2020 showed nodular liver contour suggesting cirrhosis. Follows with DRAW TENDER at [facility] whose name she cannot recall. Will obtain bloodwork from PCP. Stacy Auguste MD [id number],C,T he patient is using CPAP on a regular basis. The patient has been benefiting from therapy and should continue use. Stacy Auguste MD [id number],C,C ontinues on Metformin. Stacy Auguste MD [id number],C,C ontinues on Rosuvastatin. We aim for an LDL <70. Stacy Auguste MD [id number],C,B P control is satisfactory. Stacy Auguste MD [id number],C,H er recent echo 08/24/2020 showed normal LV [...] nodular liver contour suggesting cirrhosis. Follows with DRAW TENDER at [facility] whose name she cannot recall. Will obtain [...] prescripition for compression stockings has been given. Stcay Auguste MD Cardiology:Much impr brad on Metoprolol [...]
--- NOTE | 2024-03-24 09:35 | ECG_ITS ---
Test Date: 2024-03-24 09:41:08 Measurements Intervals [place] Rate: 95 P: 33 DC: 192 QRS: -16 QRSD: 105 T: 19 QT: 358 QTc: 452 Interpretive Statements SINUS RHYTHM WITH OCCASIONAL SUPRAVENTRICULAR PREMATURE COMPLEXES LOW QRS VOLTAGE IN PRECORDIAL LEADS ANTERIOR INFARCT, AGE INDETERMINATE INFERIOR INFARCT, AGE INDETERMINATE ABNORMAL ECG No previous ECG available for comparison Electronically Signed On 03-24-2024 09:57:11 PARENT COACH by Saman Robb D.O.
== END 2024-03-24 08:51 | disposition home or self-care (01) ==
LOC: ANHLAB 08:53 → ANHCARD 09:17
PROVIDERS: PCP Internal Medicine; Referring Provider Internal Medicine; Visit Provider Orthopaedic Surgery
DX: M19.011 Primary osteoarthritis, right shoulder (principal); I10 Essential (primary) hypertension
CPT/HCPCS: 93005

== ENCOUNTER 2024-03-24 08:58 | Outpatient (CLI) | payer MEDICARE, SELFPAY ==
[2024-03-24 09:38] LABS: Basophils Percent Auto 0.8 % (0.2-1.2); Eosinophils Absolute Auto 0.2 K/mm3 (0-0.3); Eosinophils Percent Auto 4.1 % (0-4.4); Hematocrit 44.5 % (37.0-47.0); Hemoglobin 13.9 g/dL (12.0-15.0); Immature Granulocyte Absolute 0.03 K/mm3 (0.00-0.031); Immature Granulocyte Percent A 0.6 % (0-0.5); Lymphocytes Absolute Auto 1.59 K/mm3 (0.9-3.2); Lymphocytes Percent Auto 29.9 % (18.3-44.2); Mean Corpuscular HGB Conc 31.2 g/dl (32-36); Mean Corpuscular Hemoglobin 31.3 pg (26-34); Mean Corpuscular Volume 100.2 fl (80-100); Mean Platelet Volume 9.1 fl (7.4-10.4); Monocytes Absolute Auto 0.5 K/mm3 (0.1-0.6); Neutrophils Absolute Auto 2.9 K/mm3 (1.3-6.7); Neutrophils Percent Auto 54.6 % (45.5-73.1); Platelet Count Result 146 k/mm3 (150-375); Red Blood Count 4.44 M/mm3 (4.2-5.4); Red Cell Distribution Width 14.2 % (11.5-14.5); White Blood Count 5.3 K/mm3 (4.5-10.0)
--- OUTSIDE RECORDS SUMMARY | 2024-03-24 09:38 | XMS_ITS | Continuity of Care Document ---
Author Organization [facility] Address [address] [place] [address] [address] [place] [address] Phone Care Team Providers Care [employer] Name Role Phone Jurgen Diallo Unavailable Unavailable Procedures Procedure Date Post-op Follow-up Visit Post-op Follow-up Visit Remove Cataract, Insert Lens Eye Exam, New Patient Echo Exam Of Eye Advance Directives Directive Yes / No Effective Date File Name No Information Encounters Encounter Description Practice Location Reason(s) For Visit Diagnoses Date Provider Providers Copied on Encounter [facility], [address] [place] [address] [address], [place], [place], [id number], tel:[phone] [facility] No Information [address] Yo[address] Seaman. [address] [place] [address] , [address], [place], [place], [facility], . tel:[phone] Referring Provider: Fernie Byers, [address] [place] [address], [facility]. tel:[phone] [facility], [address] [place] [address] [address], [place], [place], [id number], tel:[phone] [facility] No Information [address] Yoel Seaman. [address] [place] [address] , [address], [place], [place], [facility], [place]. tel:[phone] Referring Provider: Fernie Byers, [address] [place] [address], [facility]. tel:[phone] [facility], [address] [facility], [place], [place], [id number], tel:[phone] [facility] No Information [facility]. [address] [facility] , [address], [place], [place], [facility], . tel:[phone] Referring Provider: Fernie Byers, [address] [place] [address], [facility]. tel:[phone] [facility], [address], [place], [place], [id number], tel:[phone] [facility] No Information [facility]. [facility] , [address], [place], [place], [facility], . tel:[phone] Referring Provider: Fernie Byers, [address] [place] [address], [facility]. tel:[phone] Family History Family Member Type Diagnosis Age At Onset No Information Payers Payer name Insurance type Covered alliance party ID Authoriza tion(s) No Information Social [...]
--- OUTSIDE RECORDS SUMMARY | 2024-03-24 09:38 | XMS_ITS | CONTINUITY OF CARE DOCUMENT ---
Author Name amira collier Address Unknown Organization [facility] Address [address] [place] [address] Phone [phone] Care Team Providers Care Loft Worker Pile Driving Name Role Phone Stacy Auguste MD Unavailable ADITYA LOPEZ MD Unavailable ADITYA LOPEZ MD Unavailable PROBLEMS Condition Status Date Provider Notes Family History of CVA or Stroke: completed - M raz Auguste MD Family History of Hypertension: completed [...] of Hyperlipidemia: completed - Stacy Auguste MD ENCOUNTERS Date Type Provider Location Encounter Diag nosis - In-person encounter Office Visit Stacy Auguste MD [facility] - In-person encounter Office Visit Stacy Auguste MD [facility] - In-person encounter Office Visit Stacy Auguste MD [facility] - In-person encounter Office Visit Stacy Auguste MD [facility] Shortness of breath with exertion - In-person encounter Office Visit Stacy Auguste MD [facility] - In-person encounter Office Visit Stacy Auguste MD [facility] Diabetes mellitus - In-person encounter Office Visit Stacy Auguste MD [facility] - In-person encounter Office Visit Stacy Auguste MD [facility] Venous insufficiency - In-person encounter Office Visit Stacy Auguste MD [facility] Family History of CVA or Stroke:Family History of Hyperlipidemia:Family History of Hypertension:Family History of Hyperlipidemia:Family History of Hypertension:MINA - On CPAPHTN essential - In-person encounter Office Visit Stacy Auguste MD [facility] HTN essential - In-person encounter Office Visit Stacy Auguste MD [facility] HypothyroidismOSA - On CPAPHyperlipidemiaHx of DVT, [...] MD blood pressure, diastolic 70 mm[Hg] [facility] blood pressure, systolic 130 mm[Hg] Missy shearer [place] oxygen saturation, oximetry 97 % [facility] respiratory rate E&M 16 /min [facility] pulse rate 79 /min [facility] weight E&M 227 [lb_av] [place] [facility] height E&M 65 [in_i] [facility] Body Mass Index (Ratio) 37.60 kg/m2 Alexander Auguste MD blood pressure, diastolic 80 mm[Hg] Mp [facility] blood pressure, systolic 140 mm[Hg] Missy shearer [place] oxygen saturation, oximetry 95 % [facility] respiratory rate E&M 16 /min [place] pulse rate 96 /min [place] [facility] weight E&M 226 [lb_av] [place] height E&M 65 [in_i] Tatum Mendiola Body Mass Index (Ratio) 39.43 kg/m2 Nguyen ssa Puhse blood pressure, diastolic 88 mm[Hg] Da salas [place] blood pressure, systolic 168 mm[Hg] Dac ia Jurgen oxygen saturation, oximetry 94 % Rosanna [place] respiratory rate E&M 16 /min Rosanna V oss pulse rate 99 /min [facility] [place] weight E&M 237 [lb_av] Rosanna Jurgen height E&M 65 [in_i] [facility] Body Mass Index (Ratio) 38.44 kg/m2 Alexander [...] Allergy Relief 50 mcg/actuation spray,suspensio n active [place] into both nostrils twice a day Marla Li alprazolam 0.25 mg tablet active Take 1 tablet by mouth once a day as needed Frances Ellison VITAMIN D (ERGOCALCIFEROL ) 27189 UNIT ORAL CAPSULE completed Take once a [...] Payer name Policy type / Coverage type [place] red green party ID [facility] MEDICARE ADVANTAGE (PPO) Other [id number] ADVANCE DIRECTIVES Name Date POWER OF SCREWDOWN OPERATOR TREATMENT PLAN Date Name Performer [id number],C,C ontinues on Rosuvastatin. We aim for an LDL <70. Stacy Auguste MD [id number],C,T he patient is using CPAP on a regular basis. The patient has been benefiting from therapy and should continue use. Stacy Auguste MD [id number],C,On levothyrox ine. Stacy Auguste MD [id number],C,On metformin 500mg BID. Stacy Auguste MD [id number],C,B P elevated, dietary compliance stressed. Also asked her to increase lisinopril to 10mg daily, and monitor BP on a regular basis. Stacy Auguste MD [id number],C, W eight loss advised Stacy Auguste MD [id number],C, C ontinues on replacement therapy. Stacy Auguste MD [id number],C, C ontinues on Rosuvastatin. We aim for an LDL <70. Stacy Auguste MD [id number],C, C ontinues on Metformin. Stacy Auguste MD [id number],C, H er echo 08/24/2020 showed normal LV function. EF 60%. Nuclear stress test 08/24/2020 showed normal perfusion. The patient has been reassured. Weight reduction advised. Stacy Auguste MD [id number],C, B P today elevated at 150/83. Advised she monitor at home. Stacy Auguste MD [id number],C, A bdominal US 06/2020 showed nodular liver contour suggesting cirrhosis. Follows with MEDICAL DIRECTOR/HEAD TEAM PHYSICIAN at [facility] whose name she cannot recall. Will obtain bloodwork from PCP. Stacy Auguste MD [id number],C,T he patient is using CPAP on a regular basis. The patient has been benefiting from therapy and should continue use. Stacy Auguste MD [id number],C,C ontinues on Metformin. Stacy Auguste MD [id number],C,C ontinues on Rosuvastatin. We aim for an LDL <70. Stacy Auguste MD [id number],C,B P control is satisfactory. Stacy Auguste MD [id number],C,H er recent echo 08/24/2020 showed normal LV [...] nodular liver contour suggesting cirrhosis. Follows with MEDICAL DIRECTOR/HEAD TEAM PHYSICIAN at [facility] whose name she cannot recall. Will [...]
[2024-03-24 09:52] LABS: Alanine Aminotransferase 28 U/L (6-35); Alkaline Phosphatase 68 U/L (38-126); Anion Gap 7 mmol/L (4-12); Aspartate Amino Transferase 31 U/L (14-36); Bilirubin,Total 0.7 mg/dL (0.2-1.3); Blood Urea Nitrogen 17 mg/dL (7-17); Calcium 9.5 mg/dL (8.4-10.2); Carbon Dioxide 26 mmol/L (22-30); Chloride 103 mmol/L (98-107); Cholesterol 116 mg/dL (0-200); Estimated Glomerular Filt Rate > 60; Glucose 128 mg/dL (65-110); HDL Direct 67 mg/dL; Hemoglobin A1C 5.7 % (<5.7); Potassium 4.3 mmol/L (3.4-5.0); Sodium 136 mmol/L (137-145); Triglycerides 83 mg/dL (<150)
[2024-03-24 10:03] LABS: LDL Cholesterol Direct 34 mg/dL
[2024-03-24 10:22] LABS: Free T4 Free Thyroxine 0.87 ng/dL (0.78-2.19); Vitamin D 25 Hydroxy 59.6 ng/mL
[2024-03-24 10:32] LABS: Creatinine Urine 135.8 mg/dL
[2024-03-24 10:36] LABS: MALB Creatinine Ratio 24.8 mg/g (0-30); Microalbumin Urine Random 33.7 mg/L (0-16.7)
== END 2024-03-24 08:59 | disposition home or self-care (01) ==
PROVIDERS: PCP Internal Medicine; Referring Provider Orthopaedic Surgery; Visit Provider Internal Medicine
DX: E11.9 Type 2 diabetes mellitus without complications (principal); E78.5 Hyperlipidemia, unspecified; E55.9 Vitamin D deficiency, unspecified
CPT/HCPCS: 36415; 80053; 80061; 82043; 82306; 83036; 84439; 84443; 85025

== ENCOUNTER 2024-04-27 11:00 | Outpatient (CLI) | payer MEDICARE, SELFPAY ==
[2024-04-27 11:11] LABS: Basophils Percent Auto 0.8 % (0.2-1.2); Eosinophils Absolute Auto 0.2 K/mm3 (0-0.3); Eosinophils Percent Auto 3.2 % (0-4.4); Hematocrit 45.5 % (37.0-47.0); Hemoglobin 14.3 g/dL (12.0-15.0); Immature Granulocyte Absolute 0.03 K/mm3 (0.00-0.031); Immature Granulocyte Percent A 0.6 % (0-0.5); Lymphocytes Absolute Auto 1.31 K/mm3 (0.9-3.2); Lymphocytes Percent Auto 26.1 % (18.3-44.2); Mean Corpuscular HGB Conc 31.4 g/dl (32-36); Mean Corpuscular Hemoglobin 31.2 pg (26-34); Mean Corpuscular Volume 99.3 fl (80-100); Monocytes Absolute Auto 0.5 K/mm3 (0.1-0.6); Monocytes Percent Auto 9.6 % (2.6-8.5); Neutrophils Percent Auto 59.7 % (45.5-73.1); Platelet Count Result 143 k/mm3 (150-375); Red Blood Count 4.58 M/mm3 (4.2-5.4); Red Cell Distribution Width 14.3 % (11.5-14.5)
[2024-04-27 11:18] LABS: Blood Urea Nitrogen 15 mg/dL (8-26); Carbon Dioxide 29 mmol/L (22-30); Chloride 104 mmol/L (98-109); Estimated Glomerular Filt Rate 53; Glucose 112 mg/dL (70-105); Ionized Calcium (POC) 1.24 mmol/L (1.11-1.31); Potassium 5.1 mmol/L (3.5-4.9); Sodium 141 mmol/L (138-146)
[2024-04-27 12:29] LABS: Alanine Aminotransferase 42 U/L (6-35); Albumin Level 4.3 g/dL (3.5-5.1); Alkaline Phosphatase 78 U/L (38-126); Anion Gap 12 mmol/L (4-12); Aspartate Amino Transferase 46 U/L (14-36); Bilirubin,Total 0.6 mg/dL (0.2-1.3); Blood Urea Nitrogen 15 mg/dL (7-17); Calcium 9.8 mg/dL (8.4-10.2); Carbon Dioxide 26 mmol/L (22-30); Chloride 103 mmol/L (98-107); Estimated Glomerular Filt Rate 59; Glucose 111 mg/dL (65-110); Potassium 5.3 mmol/L (3.4-5.0); Sodium 141 mmol/L (137-145)
--- OUTSIDE RECORDS SUMMARY | 2024-04-27 12:39 | XMS_ITS | Clinical Summary ---
Author Organization [facility] Address [address] [place] [address] Care Team Providers Care Hold Worker Name Role Phone Soy Joyce MD Primary [...] Encounters Date Type Department Care Team Description 04/27/2024 11:00 AM CDT Office Visit [facility] Oncology and Hematology [facility] [address] [place] [address] Danny Heart MD Other secondary thrombocytopenia (Primary Dx) 03/12/2024 Abstract [facility] Oncology [facility] [address] [place] [address] Danny Heart MD 03/11/2024 Telephone [facility] Oncology and Hematology [facility] [address] [place] [phone] Danny Heart MD Surgical Clearance 03/04/2024 External [...] Sign Reading Time Taken Comments Blood Pressure 120/72 04/27/2024 11:28 AM CDT Pulse 91 04/27/2024 11:26 AM CDT Temperature 35.9 C (96.7 F) 04/27/2024 11:26 AM CDT Respiratory Rate 15 04/27/2024 11:26 AM CDT Oxygen Saturation 94% 04/27/2024 11:26 AM CDT Inhaled Oxygen Concentration - - Weight 99.5 kg (219 lb 6.4 oz) 04/27/2024 11:26 AM CDT Height 163.8 cm (5' 4.5 ) 03/13/2021 10:16 AM CS T Body Mass Index 37.08 03/13/2021 10:16 AM RADIO DISPATCHER Plan of Treatment Upcoming Encounters Date Type Department Care Team (Late st Contact Info) Description 01/25/2025 11:30 AM RADIO DISPATCHER Office Visit [facility] Oncology and Hematology - [place] [address] [place] [address] Danny Heart MD [address] [facility] [address] [place] [address] Health Maintenance Due Date Last Done [...] 11/21/2021, 12/13/2020, Additional history exists COVID-19 Vaccine ( - 2023-2 5 season) 2023 07/31/2021, 03/14/2021, 04/30/2020, Additional history exists [place] Preventative Visit/Annual Wellness Visit 02/11/2024 DTAP/TDAP/TD VACCINES (2 - T d or Tdap) 12/05/2029 12/06/2019 PNEUMOCOCCAL VACCINE 50+ YEARS Completed 05/19/2018 , 03/17/2017 COLORECTAL SCREENING [...] Most Recently Relevant to Health Maintenance Insurance Care Teams Hold Worker Relationship Specialty Start Date End Date Soy Joyce MD PCP - General Internal Medicine 12/23/17
--- OUTSIDE RECORDS SUMMARY | 2024-04-27 12:39 | XMS_ITS | Clinical Summary ---
Author Organization [facility] Address [address] [place] [address] Care Team Providers Care Skiver Machine Name Role Phone Soy Joyce MD Primary Care Provider [phone] Medications olmesartan (BENICAR) 5 MG tablet Take 1 tablet (5 mg total) by mouth 1 (one) time each day 90 tablet 1 12/30/2023 Active Encounters Date Type Department Care Team Description 04/02/2024 Documentation Only [facility], [address] [address] Antwan Arora DO 04/02/2024 Documentation Only [facility], [address] [phone] Antwan Arora DO 03/05/2024 Documentation Only [facility], [address] [address] Antwan Arora DO 03/03/2024 Documentation Only [facility], [address] [phone] Antwan Arora DO 03/02/2024 4:00 PM PRODUCT DEVELOPMENT ECOLOGIST Office Visit [facility], [facility] [address] [place] [address] [address] [place] [address] Antwan Arora, Stage 3a chronic kidney disease (HCC) (Primary Dx); Persistent proteinuria; Obstructive sleep apnea syndrome; Hepatic fibrosis with hepatic sclerosis; Hypertensive chronic kidney disease; Type 2 diabetes mellitus with diabetic chronic kidney disease (HCC); Pure hypercholesterolemia, not otherwise specified; Other specified hypothyroidism 03/02/2024 Documentation Only [address] [address] Antwan Arora DO 03/02/2024 Documentation Only [address] [address] Antwan Arora DO 02/06/2024 Documentation Only [address] [address] Antwan Arora DO from Last 3 Months Social History Tobacco [...] Comments Blood Pressure 110/60 03/02/2024 3:49 PM PRODUCT DEVELOPMENT ECOLOGIST Pulse 68 03/02/2024 3:49 PM PRODUCT DEVELOPMENT ECOLOGIST Temperature 36.7 C (98 F) 03/02/2024 3:49 PM PRODUCT DEVELOPMENT ECOLOGIST Respiratory Rate 18 03/02/2024 3:49 PM PRODUCT DEVELOPMENT ECOLOGIST Oxygen Saturation 97% 03/02/2024 3:49 PM PRODUCT DEVELOPMENT ECOLOGIST Inhaled Oxygen Concentration - - Weight 99.3 kg (219 lb) 03/02/2024 3:49 PM PRODUCT DEVELOPMENT ECOLOGIST Height - - Body Mass Index - - Plan of Treatment Upcoming Encounters Date Type Department Care Team (Late st Contact Info) Description 08/31/2024 12:30 PM CDT Office Visit [facility] [address] [facility] [address] [place] [phone] Antwan Arora DO [address] [place] [phone] Health Maintenance Due Date Last Done Comments Hepatitis B Vaccine (1 of 3 - Risk 3-dose series) 2003 Influenza Vaccine (#1) 2023 0, 12/11/2018, 12/01/2017, Additional history exists Diabetes: Hemoglobin A1C 10/28/2023 Diabetes: Ophthalmology Exam 10/28/2023 Diabetes: Pedal Pulse Checked 10/28/2023 Diabetes: Sensory Foot Exam 10/28/2023 Diabetes: Visual Foot Exam 10/28/2023 Pneumococcal Vaccine: 65+ Years Completed 9, 03/17/2017 Insurance [employer] MCR ADV PPO ([id number]) Advance Directives Documents on File Type Date Recorded Patient Machine Setup Operator Expl anation Advance Care Planning 01/02/2024 12:13 PM Care Teams Skiver Machine Relationship Specialty Start Date End Date Soy Joyce MD [address] [facility], [address] [place] [address] PCP - General Internal Medicine 09/25/23
--- OUTSIDE RECORDS SUMMARY | 2024-04-27 12:40 | XMS_ITS | Encounter Summary ---
Author Organization [facility] Address [address] [place] [address] Care Team Providers Care Music Pastor Name Role Phone Soy Joyce MD Primary Care Provider Encounter Details Date Type Department Care Team (Late st Contact Info) Description 04/27/2024 11:00 AM CDT Office Visit [facility] Oncology and Hematology - [place] [address] [facility] [address] [place] [address] Danny Heart MD [address] [facility] [address] [place] [address] Other secondary thrombocytopenia (Primary Dx) Social History Tobacco Use Types Packs/Day Years [...] on file Sexual Orientation Not on file documented as of this encounter Last Filed Vital Signs Vital Sign Reading Time Taken Comments Blood Pressure 120/72 04/27/2024 11:28 AM CDT Pulse 91 04/27/2024 11:26 AM CDT Temperature 35.9 C (96.7 F) 04/27/2024 11:26 AM CDT Respiratory Rate 15 04/27/2024 11:26 AM CDT Oxygen Saturation 94% 04/27/2024 11:26 AM CDT Inhaled Oxygen Concentration - - Weight 99.5 kg (219 lb 6.4 oz) 04/27/2024 11:26 AM CDT Height - - Body Mass Index 37.08 03/13/2021 10:16 AM FRUIT OR NUT FARM WORKER documented in this encounter Plan of Treatment Upcoming Encounters Date Type Department Care Team (Late st Contact Info) Description 01/25/2025 11:30 AM FRUIT OR NUT FARM WORKER Office Visit [facility] Oncology and Hematology - [place] [address] [facility] [address] [place] [address] Danny Heart MD [address] [facility] [address] [place] [address] Scheduled Orders Name Type Priority Associated Diagnoses Orde r Schedule CBC WITH DIFFERENTIAL Lab Stat Other secondary thrombocytopenia Expected: 01/27/2025, Expires: 04/27/2025 COMPREHENSIVE METABOLIC PANEL Lab Stat Other secondary thrombocytopenia Expected: 01/27/2025, Expires: 04/27/2025 documented as of this encounter Visit Diagnoses Diagnosis Other secondary thrombocytopenia- Primary documented in this encounter Care Teams Music Pastor Relationship Specialty Start Date End Date Soy Joyce MD PCP - General Internal Medicine 12/23/17 documented as of this encounter
--- OUTSIDE RECORDS SUMMARY | 2024-04-27 12:40 | XMS_ITS | CONTINUITY OF CARE DOCUMENT ---
Author Name amira collier Address Unknown Organization [facility] Address [address] [place] [address] Phone [phone] Care Team Providers Care Criminal Justice Social Worker Name Role Phone Stacy Auguste MD Unavailable ADITYA LOPEZ MD Unavailable ADITYA LOPEZ MD Unavailable [phone] PROBLEMS Condition Status Date Provider Notes Family [...] breath with exertion active Yao Auguste MD Preoperative cardiovascular examination active Stacy Auguste MD ENCOUNTERS Date Type Provider Location Encounter Diag nosis - In-person encounter Office Visit Stacy Auguste MD [facility] Office - In-person encounter Office Visit Stacy Auguste MD [facility] Preoperative cardiovascular examination - In-person encounter Office Visit Stacy Auguste MD [place] [facility] - In-person encounter Office Visit Stacy Auguste MD [place] [facility] - In-person encounter Office Visit Stacy Auguste MD [place] [facility] - In-person encounter Office Visit Stacy Auguste MD [place] [facility] Shortness of breath with exertion - In-person encounter Office Visit Stacy Auguste MD [place] [facility] - In-person encounter Office Visit Stacy Auguste MD [facility] Diabetes mellitus - In-person encounter Office Visit Stacy Auguste MD [place] [facility] - In-person encounter Office Visit Stacy Auguste MD [facility] Venous insufficiency - In-person encounter Office Visit Stacy Auguste MD [place] [facility] Family History of CVA or Stroke:Family History of Hyperlipidemia:Family History of Hypertension:Family History of Hyperlipidemia:Family History of Hypertension:MINA - On CPAPHTN essential - In-person encounter Office Visit Stacy Auguste MD [place] [facility] HTN essential - In-person encounter Office Visit Stacy Auguste MD [place] [facility] HypothyroidismOSA - On CPAPHyperlipidemiaHx of DVT, treated w XareltoGERDAbnormal LFT'sObesity VITAL SIGNS Date Observation Value Provider Body Mass Index (Ratio) 36.44 kg/m2 Alexander Auguste MD blood pressure, diastolic 71 mm[Hg] [facility] [place] blood pressure, systolic 149 mm[Hg] Regina loving [place] oxygen saturation, oximetry 97 % [facility] 86 /min [facility] respiratory rate E&M 12 /min [facility] weight E&M 219 [lb_av] [facility] height E&M 65 [in_i] [facility] blood pressure, cuff size regular [facility] Body Mass Index (Ratio) 36.61 kg/m2 Dileep jose Chapaty blood pressure, diastolic 75 mm[Hg] [facility] blood pressure, systolic 118 mm[Hg] [facility] saturation, oximetry 99 % [facility] pulse rate 110 /min [facility] respiratory [facility] E&M 12 /min [facility] weight E&M 220 [lb_av] [facility] height E&M 65 [in_i] [facility] blood pressure, cuff size regular [facility] Body Mass Index (Ratio) 37.77 kg/m2 Alexander Auguste MD blood pressure, diastolic 95 mm[Hg] Em nkLogic blood pressure, systolic 161 mm[Hg] Radha [...] Auguste MD blood pressure, diastolic 83 mm[Hg] Li nkLogic blood pressure, systolic 150 mm[Hg] Radha [...] Auguste MD blood pressure, diastolic 84 mm[Hg] Ma ha O'Jamison blood pressure, systolic 132 mm[Hg] [facility] O'Jamison oxygen saturation, oximetry 93 % Marla O'Jamison respiratory rate E&M 16 /min Marla O'Jamison pulse rate 95 /min Marla O'Jamison weight E&M 235 [lb_av] Marla O'Jamison height E&M 65 [in_i] Marla O'Jamison Body Mass Index (Ratio) 38.10 kg/m2 Alexander Auguste MD blood pressure, cuff size regular Kr isty [place] pulse rate 103 /min Devika [place] oxygen saturation, oximetry 97 % Devika Cordelia blood pressure, diastolic 70 mm[Hg] Leo Colon blood pressure, systolic 130 mm[Hg] Dom Colon respiratory rate E&M 19 /min Devika Colon weight E&M 229 [lb_av] Devika Colon height E&M 65 [in_i] Devika Cordelia Body Mass Index (Ratio) 37.60 kg/m2 Bhavin Kuo blood pressure, cuff size regular Cy aneta Ellison blood pressure, diastolic 83 mm[Hg] Joel Ellison blood pressure, systolic 154 mm[Hg] Annika Ellison pulse rate 111 /min Francescyndie Rodriguez l oxygen saturation, oximetry 93 % Frances Ellison respiratory rate E&M 16 /min Francescyndie Ellison weight E&M 226 [lb_av] Frances Pelayobel l height E&M 65 [in_i] Frances Pelayobel l Body Mass Index (Ratio) 37.27 kg/m2 Bhavin edu Kuo blood pressure, call tolic, second observation 73 mm[Hg] Stacy Auguste MD blood pressure, systolic, second observat ion 142 mm[Hg] Stacy Auguste MD oxygen saturation, oximetry 99 % Frances Ellison pulse rate 96 /min Frances Piercebel l blood pressure, diastolic 79 mm[Hg] Joel cornell Ellison blood pressure, systolic 172 mm[Hg] Annika cyndie Ellison respiratory rate E&M 18 /min Frances Ellison blood pressure, cuff size regular Cy aneta Ellison weight E&M 224 [lb_av] Frances Pelayobel l temperature site temporal [facility] E&M 97.5 [degF] Rosaura Tanks sydnee height E&M 65 [in_i] Frances pretty Body Mass Index (Ratio) 38.77 kg/m2 Alexander Auguste MD blood pressure, cuff size regular Cy aneta Ellison blood pressure, diastolic 70 mm[Hg] Cy aneta Ellison blood pressure, systolic 136 mm[Hg] Annika cyndie Ellison oxygen saturation, oximetry 93 % Frances Ellison respiratory rate E&M 16 /min Francescyndie Ellison pulse rate 98 /min Frances pretty weight E&M 233 [lb_av] Frances Rodriguez l height E&M 65 [in_i] Frances Rodriguez l Body Mass Index (Ratio) 37.77 kg/m2 Alexander Auguste MD blood pressure, diastolic 70 mm[Hg] M[facility] blood pressure, systolic 130 mm[Hg] Missy shearer [place] oxygen saturation, oximetry 97 % [facility] respiratory rate E&M 16 /min [facility] pulse rate 79 /min [facility] weight E&M 227 [lb_av] [facility] height E&M 65 [in_i] [facility] Body Mass Index (Ratio) 37.60 kg/m2 Alexander Auguste MD blood pressure, diastolic 80 mm[Hg] M[facility] blood pressure, systolic 140 mm[Hg] Missy shearer [place] oxygen saturation, oximetry 95 % [facility] E&M 16 /min Tatum pulse rate 96 /min [facility] weight E&M 226 [lb_av] Tatum Mendiola height E&M 65 [in_i] Whitehouse Mendiola Body Mass Index (Ratio) 39.43 kg/m2 Nguyen pankaj Puhse blood pressure, diastolic 88 mm[Hg] Da salas Jurgen blood pressure, systolic 168 mm[Hg] Dac ia Jurgen oxygen saturation, oximetry 94 % Rosanna Jurgen respiratory rate E&M 16 /min Rosanna V oss pulse rate 99 /min Rosanna Jurgen weight E&M 237 [lb_av] Rosanna Jurgen height E&M 65 [in_i] Rosanna [place] Body Mass Index (Ratio) 38.44 kg/m2 Alexander Auguste MD blood pressure, cuff size regular Cy aneat Ellison blood pressure, diastolic 70 mm[Hg] Cy aneta Scot blood pressure, systolic 140 mm[Hg] Annika cyndie Scot oxygen saturation, oximetry 93 % Frances Ellison respiratory rate E&M 16 /min Frances Ellison pulse rate 77 /min Frances Pelayobel l weight E&M 231 [lb_av] Frances Pelayobel l height E&M 65 [in_i] Frances Campbel [...] skin twice a day as needed Devika Colonby #30, 15 days supply, Prescribed by MODESTA BEEBE, Filled 06/21/2020 lorazepam 0.5 mg tablet active Take 1 tablet by mouth once a day Devika Storey #30, 30 days supply, Prescribed by ADITYA LOPEZ, Anh 06/19/2020 metformin 500 mg tablet extended release [...] Allergy Relief 50 mcg/actuation spray,suspensio n active [place] into both nostrils twice a day Marla Li alprazolam 0.25 mg tablet active Take 1 tablet by mouth once a day as needed Frances Ellison VITAMIN D (ERGOCALCIFEROL ) [address] UNIT ORAL CAPSULE completed Take once a [...] smoking status Never smoker Stacy amaya MD smoking status Never smoker Stacy amaya MD smoking status Never smoker Stacy amaya MD [...] moking History: [place] st[place] has never smoked. Chidi Kuo social history reviewed E&M revi ewed - no changes required Chidi Kuo smoking status Never smoker Frances delgadillo social history E&M S moking History: [place] has never smoked. Stacy Auguste MD social history reviewed E&M revi ewed - no changes required Stacy Auguste MD smoking status Never smoker Frances delgadillo social history E&M S moking History: [place] st[place] has never smoked. Stacy Auguste MD social history reviewed E&M revi ewed - no changes required Stacy Auguste MD smoking status Never smoker Frances delgadillo social history E&M S moking History: [place] [...] Auguste MD smoking status Never smoker Frances Murrell leona FAMILY HISTORY Family Member Condition Son Family [...] Payer name Policy type / Coverage type [employer] party ID [employer] MEDICARE ESA PPO Medicare [id number] 100 ADVANCE DIRECTIVES Name Date POWER OF COMMERCIAL [employer] TECHNICIAN TREATMENT PLAN Date Name Performer [id number],C,C ontinues on Rosuvastatin. We aim for an LDL <70. Stacy Auguste MD [id number],C,T he patient is using CPAP on a regular basis. The patient has been benefiting from therapy and should continue use. Stacy Auguste MD [id number],C,On levothyrox ine. Stacy Auguste MD [id number],C,On metformin 500mg BID. Stacy Auguste MD [id number],C,B P elevated, dietary compliance stressed. Also asked her to increase lisinopril to 10mg daily, and monitor BP on a regular basis. Stacy Auguste MD [id number],C, W eight loss advised Stacy Auguste MD [id number],C, C ontinues on replacement therapy. Stacy Auguste MD [id number],C, C ontinues on Rosuvastatin. We aim for an LDL <70. Stacy Auguste MD [id number],C, C ontinues on Metformin. Stacy Auguste MD [id number],C, H er echo 08/24/2020 showed normal LV function. EF 60%. Nuclear stress test 08/24/2020 showed normal perfusion. The patient has been reassured. Weight reduction advised. Stacy Auguste MD [id number],C, B P today elevated at 150/83. Advised she monitor at home. Stacy Auguste MD [id number],C, A bdominal US 06/2020 showed nodular liver contour suggesting cirrhosis. Follows with DIRECTOR OF BUSINESS APPLICATIONS at [facility] whose name she cannot recall. Will obtain bloodwork from PCP. Stacy Auguste MD [id number],C,T he patient is using CPAP on a regular basis. The patient has been benefiting from therapy and should continue use. Stacy Auguste MD [id number],C,C ontinues on Metformin. Stacy Auguste MD [id number],C,C ontinues on Rosuvastatin. We aim for an LDL <70. Stacy Auguste MD [id number],C,B P control is satisfactory. Stacy Auguste MD [id number],C,H er recent echo 08/24/2020 showed normal LV function. EF 60%. Recent nuclear stress test 08/24/2020 showed normal perfusion. The patient has been reassured. Weight reduction advised. Stacy Auguste MD Cardiology: C ontinues on Rosuvastatin. We aim for an LDL <70. Stacy Auguste MD Cardiology: M ildly elevated. Advised routine home monitoring and dietary sodium restriction. Stacy Auguste MD Cardiology:She is a candidate for shoulder surgery. She recently had a regadenoson stress test which was negative for ischemia. Her echocardiogram demonstrated normal LV systolic function with an EF of 60%. She may undergo the surgery at an acceptable risk. Stacy Auguste MD Cardiology: T he patient is using CPAP on a regular basis. The patient has been benefiting from therapy and should continue use. T his visit has been a part of the consistent, comprehensive, and ongoing management of the chronic medical condition(s) listed above for the patient. Stacy Auguste MD Cardiology: Advised to continue use of compression stockings of 20-30mm Hg to improve swelling. Stacy Auguste MD Cardiology Stacy Vazquez Cardiology:The patie nt is using CPAP on a regular basis. The patient has been benefiting from therapy and should continue use. T his visit has been a part of the consistent, comprehensive, and ongoing management of the chronic medical condition(s) listed above for the patient. Stacy Auguste MD Cardiology: H er updated medication list for this problem includes: Lisinopril 5 Mg Tablet (Lisinopril) ..... Take 1 tablet by mouth twice a day Metoprolol Succinate 25 Mg Tablet Extended Release 24 Hr (Metoprolol succinate) ..... 1 tablet by mouth once a day BP today: 118/75 P rior BP: 161/95 (09/19/2021) Labs Reviewed: L DL: 96 (03/09/2018) T his visit has been a part of the consistent, comprehensive, and ongoing management of the chronic medical condition(s) listed above for the patient. Stacy Auguste MD Cardiology:Need nucl ear stress test, cannot walk long enough to reach 85% MPHR due to arthritic pains C heck echo Stacy Auguste MD Cardiology:Continues on Rosuvastatin. We [...] nodular liver contour suggesting cirrhosis. Follows with DIRECTOR OF BUSINESS APPLICATIONS at [facility] whose name she cannot recall. Will obtain [...] follow up :Continues on replacement therapy. Chidi Kyjarek Cardiology follow up :Weight los s advised Chidi Cardiology follow up :Intermittent leg swelling persists. Advised to use compression stockings of 20-30mm Hg to improve swelling. Cardiology follow up :The patient is using CPAP on a regular basis. The patient has been benefiting from therapy and should continue use. Cardiology follow up :Continues on Rosuvastatin. We aim for an LDL <70. Cardiology follow up :Continues on Metformin. Reduced intake of carbohydrates and sugars advised. Cardiology follow up :Blood pressure and heart rate elevated today. Unclear etiology. Advised reduced sodium intake and routine monitoring of the blood pressure. We aim for blood pressure less than 130/80. No changes to antihypertensives made today. Cardiology:Weight loss advised Marcia guerrero Cardiology:Intermitt ent leg swelling persists. Advised to use zippered compression stockings to improve swelling. Cardiology:Recently started on R osuvastatin. Chidi Kuo Cardiology:Continues on Metformi n. Chidi Kuo Cardiology:Blood pre ssures elevated. Will increase Lisinopril [...] MD Date Name Stress Regadenoson Complete Echo Stress Regadenoson Complete Echo Complete Echo Venous Doppler Bilat eral LE - Reflux Renal Artery Duplex Complete Echo HISTORY OF PROCEDURES Procedure Date Procedure Name Provider Procedure Notes S tatus Complex e/m visit add on Stacy Auguste MD completed Complex e/m visit add on Stacy Auguste MD completed EKG Stacy Auguste MD complet ed EKG [...]
--- OUTSIDE RECORDS SUMMARY | 2024-04-27 12:40 | XMS_ITS | Clinical Summary ---
Author Organization [facility] [employer] Address [address] [place] [address] Care Team Providers Care Air Quality Manager Name Role Phone Soy Joyce MD Primary Care Provider Source Comments [facility],non-owned Affiliates and Associated Physician Practices is amultiple site organization consisting of ambulatory clinics and hospital sitesin [place], [place], [place] and [place]. This disclosure is being madepursuant to the Care Everywhere program and may not contain all information available regarding this patient. Last updated 17.[facility] [employer] Allergies No known active allergies Medications * Be aware that medications may not be up to date on this document. Alwaysverify current medications with the patient. Medication Sig Dispensed Refills Start Date End Date Status levothyroxine (SYNTHROID) 150 MCG tablet Take 100 mcg by mouth daily before breakfast 06/12/2020 Activ e venlafaxine XR 24hr (EFFEXOR XR) 75 MG [...] by mouth 2 times daily Active Multiple Vitamins-Minerals (WOMENS MULTI VITAMIN & MINERAL [...] 500 mg by mouth once daily Active Active Problems Problem Noted Date Diagnosed Date [...] Encounters Date Type Department Care Team Description 04/09/2024 Telephone [facility] [address] [place] [phone] Anastasia Gandhi APRN-CNP Discuss Surgery 04/07/2024 Telephone [facility] [address] [place] [phone] Maggy Hess, rn palliative 04/03/2024 8:57 AM PATCHING MACHINE OPERATOR - 04/03/2024 11:59 PM [facility] Hospital Encounter [facility] MRI [address] [place] [address] Anastasia Gandhi, LEONARDO-MARY JO Discharge Disposition: Home or Self Care 03/15/2024 Telephone [facility] [address] [place] [phone] Anastasia Gandhi APRN-CNP Results 03/04/2024 11:47 AM PATCHING MACHINE OPERATOR - 03/04/2024 11:59 PM PATCHING MACHINE OPERATOR Hospital Encounter [facility] OP DRAW STATION [address] [place] [address] Anastasia Gandhi APRN-CNP Discharge Disposition: Home or Self Care 03/04/2024 11:00 AM PATCHING MACHINE OPERATOR Office Visit [facility] - [address] [address] Anastasia Gandhi APRN-CNP 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); Metabolic dysfunction-associated steatohepatitis (MASH); Thrombocytopenia, unspecified (HCC); Metabolic syndrome 03/04/2024 10:05 AM PATCHING MACHINE OPERATOR - 03/04/2024 11:46 AM PATCHING MACHINE OPERATOR Hospital Encounter [facility] [address] [place] [address] Anastasia Gandhi APRN-CNP Discharge Disposition: Home or Self Care 03/04/2024 Orders Only [facility] - [address] [address] Anastasia Gandhi APRN-CNP Liver cirrhosis secondary to [...] Comments Blood Pressure 133/72 03/04/2024 10:58 AM PATCHING MACHINE OPERATOR Pulse 92 03/04/2024 10:58 AM PATCHING MACHINE OPERATOR Temperature 37.2 C (99 F) 03/04/2024 10:58 AM PATCHING MACHINE OPERATOR Respiratory Rate 18 02/13/2023 10:1 3 AM PATCHING MACHINE OPERATOR Oxygen Saturation 95% 03/04/2024 10: 58 AM PATCHING MACHINE OPERATOR Inhaled Oxygen Concentration - - Weight 100.1 kg (220 lb 9.6 oz) 025 10:58 AM PATCHING MACHINE OPERATOR Height 165.1 cm (5' 5 ) 03/04/2024 10:5 8 AM PATCHING MACHINE OPERATOR Body Mass Index 36.71 03/04/2024 10:58 AM PATCHING MACHINE OPERATOR Plan of Treatment Upcoming Encounters Date Type Department Care Team (Late st Contact Info) Description 07/26/2024 3:30 PM CDT Appointment [facility] MRI [address] [place] [address] Anastasia Gandhi, HUMAN RESOURCES PROJECT MANAGER-CONTRACT RUNNER [address] [facility] [address] [place] [address] 08/09/2024 10:00 AM CDT Office Visit [facility] GI [address] [facility] [place] [phone] Anastasia Gandhi, HUMAN RESOURCES PROJECT MANAGER-CONTRACT RUNNER [address] [facility] [address] [place] [address] Health Maintenance Due Date Last Done Comments [...] complete this topic MENINGOCOCCAL (Group B) VACCINE SHARED DECISION-MAKING Aged Out No longer eligible based on patient's age to complete this topic MENINGOCOCCAL GROUPS A/C/Y/W VACCINE Aged Out No longer eligible based on patient's age to complete this topic Goals Goal Patient Goal Type Associated Problems Recent Progress Patient-Stated? Author Medication Management General On track( 10:55 AM PATCHING MACHINE OPERATOR) No Lana Shultz, RN Note: Expected end date: Ongoing Interventions: Take all medications as prescribed Let your doctor know right away about any changes in your medications Make sure to request a refill of your medication at least one week prior to your last dose Safety General On track( 11:03 AM PATCHING MACHINE OPERATOR) No Neida Javed, RN Note: Expected end [...] Procedure Name Priority Date/Time Associated Diagnosis Comments MRI ABDOMEN WWO CONTRAST Routine 04/03/2024 11:14 AM PATCHING MACHINE OPERATOR 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) Liver lesion PT-INR [facility] Routine 03/04/2024 12:25 PM PATCHING MACHINE OPERATOR 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) Liver lesion COMPREHENSIVE METABOLIC PANEL Routine 03/04/2024 12:25 PM PATCHING MACHINE OPERATOR 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) Liver lesion CBC W AUTO DIFFERENTIAL Routine 03/04/2024 12:25 PM PATCHING MACHINE OPERATOR 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) Liver lesion ALPHA FETOPROTEIN BLOOD TUMOR MARKER Routine 03/04/2024 12:25 PM PATCHING MACHINE OPERATOR 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) Thrombocytopenia, unspecified (HCC) Metabolic syndrome US ABDOMEN LIMITED Routine 03/04/2024 10 :33 AM PATCHING MACHINE OPERATOR 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) MICROALB/CREAT RATIO URINE (EXTERNAL RESULT ENTRY) Routine 11/27/2022 9:45 AM CDT HEMOGLOBIN A1C (EXTERNAL RESULT ENTRY) Routine 11/27/2022 9:45 AM CDT from Last 3 Months or Most Recently Relevant to Health Maintenance Results * MRI Abdomen Wwo Contrast (04/03/2024 11:14 AM PATCHING MACHINE OPERATOR) Anatomical Region Laterality Modality Abdomen Magnetic Resonan ce 04/03/2024 9:49 PM PATCHING MACHINE OPERATOR Impressions 04/03/2024 10:02 PM PATCHING MACHINE OPERATOR Impression: 1.Liver: Lobulated outline of the liver with enlargement of the caudate lobe and widening of the hepatic fissure suggesting cirrhotic changes. No significant surface nodularity. Mild diffuse fatty changes noted in the liver. 2.Hepatic observations: An approximately 1.5 cm arterial enhancing observation the segment 2 of the left lobe adjacent to the davidson and shows persistent enhancement in the venous and delayed phases. No associated diffusion restriction-LR 3. 3.Others: Mild splenomegaly. Multiple T2 high signal intensity nodules throughout the splenic parenchyma and not well seen in the other sequences, indeterminate nature. > Interpreting Provider: Criselda Worrell MD on 04/03/2024 10:02 PM Narrative 04/03/2024 10:02 PM PATCHING MACHINE OPERATOR PROCEDURE: MRI ABDOMEN WWO CONTRAST, DATE/TIME OF EXAM: 04/03/2024 11:15 AM, LOCATION [facility] INDICATION: K75.81: 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) K74.60: 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) K75.81: Metabolic dysfunction-associated steatohepatitis (MASH) K76.9: Liver lesion ADDITIONAL CLINICAL INFORMATION: Ordering Provider Reason For Exam: HCC screening, liver lesion on US, cirrhosis Technologist Note: Additional: COMPARISON: None. TECHNIQUE: Noncontrast followed by multiphasic contrast-enhanced MRI examination of was performed using routine multiplanar sequences. MRCP: None. CONTRAST: 20 mL of MultiHance was used as intravenous contrast. No procedure related complications seen. IMAGE QUALITY: Average diagnostic quality. Findings: Lower Chest: Lung bases are clear. No pleural effusion seen. Hepatobiliary system Liver morphology: Lobulated outline of the liver with enlargement of the caudate lobe and widening of the hepatic fissure suggesting cirrhotic changes. No discrete hepatic nodules are seen. Steatosis: There is mild diffuse hepatic steatosis. Iron: None. Varices: None. Spleen: Borderline (measures 12.5 cm). Multiple T2 high signal intensity nodules noted throughout the splenic parenchyma. Ascites: None. Focal liver observations Approximately 1.5 cm arterial enhancing observation in the segment 2 of the left lobe adjacent davidson (image 27 series 10 and 11) and it shows persistent enhancement in the venous and delayed phases (image 27 series 16). No diffusion restriction-LR 3. Otherwise no enhancing hepatic observations as seen. Hepatic vasculature Portal and hepatic veins: Patent. Arterial anatomy: Conventional. Biliary system: Gallbladder: Gallbladder is not visualized, likely post cholecystectomy status. Intrahepatic and extrahepatic bile ducts: No biliary dilation. Pancreas: Pancreas is normal morphology and signal intensity. No focal lesions seen. Pancreatic duct: Pancreatic duct is nondilated. Retroperitoneum Adrenals: Unremarkable. Kidneys: Normal bilateral kidneys. A few small cysts are seen in the liver. Lymph nodes: No significantly enlarged retroperitoneal or mesenteric lymph node enlargement. Blood vessels: Aorta and inferior vena cava are unremarkable. Gastrointestinal: Stomach and visualized small bowel loops and colon are unremarkable. Other findings: None. Procedure Note Criselda Worrell MD - 04/03/2024 PROCEDURE: MRI ABDOMEN WWO CONTRAST, DATE/TIME OF EXAM: 1:15 AM, LOCATION [facility] INDICATION: K75.81: 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) K74.60: 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) K75.81: Metabolic dysfunction-associated steatohepatitis (MASH) K76.9: Liver lesion ADDITIONAL CLINICAL INFORMATION: Ordering Provider Reason For Exam: HCC screening, liver lesion on US, cirrhosis Technologist Note: Additional: COMPARISON: None. TECHNIQUE: Noncontrast followed by multiphasic contrast-enhanced MRI examination of was performed using routine multiplanar sequences. MRCP: None. CONTRAST: 20 mL of MultiHance was used as intravenous contrast. No procedurerelated complications seen. IMAGE QUALITY: Average diagnostic quality. Findings: Lower Chest: Lung bases are clear. No pleural effusion seen. Hepatobiliary system Liver morphology: Lobulated outline of the liver with enlargement of the caudate lobe and widening of the hepatic fissure suggesting cirrhotic changes. No discrete hepatic nodules are seen. Steatosis: There is mild diffuse hepatic steatosis. Iron: None. Varices: None. Spleen: Borderline (measures 12.5 cm). Multiple T2 high signal intensity nodules noted throughout the splenic parenchyma. Ascites: None. Focal liver observations Approximately 1.5 cm arterial enhancing observation in the segment 2 ofthe left lobe adjacent davidson (image 27 series 10 and 11) and it shows persistent enhancement in the venous and delayed phases (image 27 series 16). No diffusion restriction-LR 3. Otherwise no enhancing hepatic observations as seen. Hepatic vasculature Portal and hepatic veins: Patent. Arterial anatomy: Conventional. Biliary system: Gallbladder: Gallbladder is not visualized, likely post cholecystectomy status. Intrahepatic and extrahepatic bile ducts: No biliary dilation. Pancreas: Pancreas is normal morphology and signal intensity. No focal lesions seen. Pancreatic duct: Pancreatic duct is nondilated. Retroperitoneum Adrenals: Unremarkable. Kidneys: Normal bilateral kidneys. A few small cysts are seen in theliver. Lymph nodes: No significantly enlarged retroperitoneal or mesentericlymph node enlargement. Blood vessels: Aorta and inferior vena cava are unremarkable. Gastrointestinal: Stomach and visualized small bowel loops and colon are unremarkable. Other findings: None. Impression: 1.Liver: Lobulated outline of the liver with enlargement of the caudate lobe and widening of the hepatic fissure suggesting cirrhotic changes.No significant surface nodularity. Mild diffuse fatty changes noted in the liver. 2.Hepatic observations: An approximately 1.5 cm arterial enhancing observation the segment 2 of the left lobe adjacent to the davidson andshows persistent enhancement in the venous and delayed phases. No associated diffusion restriction-LR 3. 3.Others: Mild splenomegaly. Multiple T2 high signal intensity nodules throughout the splenic parenchyma and not well seen in the othersequences, indeterminate nature. > Interpreting Provider: Criselda Worrell MD on 510:02 PM Anastasia Gandhi HUMAN RESOURCES PROJECT MANAGER-CONTRACT RUNNER MR ORDERABL ES * PT-INR [facility] (03/04/2024 12:25 PM PATCHING MACHINE OPERATOR) PT 13.6 12.1 - 14.8 Seconds 03/04/2024 12:59 PM PATCHING MACHINE OPERATOR [facility] INR 1.1 See Comment 03/04/2024 12:59 PM PATCHING MACHINE OPERATOR [facility] Comment:The suggested therap eutic range for standard coumadin (warfarin) therapy is an INR of 2.0-3.0. For high-risk patients (Mechanical Mitral Valve Prosthesis, etc.), the suggested prophylactic therapeutic range is an INR of 2.5-3.5. Blood BLOOD SPECIMEN / Unknown Lab Venipuncture / Unknown 03/04/2024 12:25 PM PATCHING MACHINE OPERATOR 03/04/2024 12:34 PM PATCHING MACHINE OPERATOR Anastasia Gandhi HUMAN RESOURCES PROJECT MANAGER-CONTRACT RUNNER LAB - COAGU LATION ORDERABLES [facility] [address] [place] [address], [facility] [phone] * ALPHA FETOPROTEIN BLOOD TUMOR MARKER (03/04/2024 12:25 PM PATCHING MACHINE OPERATOR) Alpha-Fetoprote in Tumor Marker 6.7 <=8.3 ng/mL 03/04/2024 1:22 PM PATCHING MACHINE OPERATOR [facility] Comment: AFP values will vary depending on testing procedure used. Results are not comparable across different methods. AFP values obtained by [facility] using an Holland Alinity Immunoassay. Blood BLOOD SPECIMEN / Unknown Lab Venipuncture / Unknown 03/04/2024 12:25 PM PATCHING MACHINE OPERATOR 03/04/2024 12:32 PM PATCHING MACHINE OPERATOR Anastasia Gandhi HUMAN RESOURCES PROJECT MANAGER-CONTRACT RUNNER LAB - CHEMI STRY ORDERABLES [facility] [address] [place] [phone], [facility] [phone] * (ABNORMAL) CBC WITH DIFFERENTIAL (03/04/2024 12:25 PM PATCHING MACHINE OPERATOR) WBC 5.5 4.0 - 10.7 x10E9/L 03/04/2024 12:39 PM [facility] RBC Count 4.76 3.90 - 5.20 x10E12/L 03/04/2024 12:39 PM [facility] Hemoglobin 14.6 11.9 - 15.8 g/dL 03/04/2024 12:39 PM [facility] Hematocrit 45.8 34.8 - 46.1 % 03/04/2024 12:39 PM [facility] MCV 96.2 80.0 - 98.0 fL 03/04/2024 12:39 PM [facility] MCH 30.7 26.7 - 33.6 pg 03/04/2024 12:39 PM [facility] MCHC 31.9 31.7 - 36.3 g/dL 03/04/2024 12:39 PM [facility] RDW-CV 13.7 11.3 - 14.8 % 03/04/2024 12:39 PM [facility] Platelet Count 149(L) 150 - 420 x10E9/L 03/04/2024 12:39 PM [facility] MPV 9.4 7.8 - 11.4 fL 03/04/2024 12:39 PM [facility] Neutrophil % 60.8 41.0 - 74.0 % 03/04/2024 12:39 PM [facility] Lymphocyte % 26.5 17.0 - 47.0 % 03/04/2024 12:39 PM [facility] Monocyte % 9.6 3.0 - 11.0 % 03/04/2024 12:39 PM [facility] Eosinophil % 2.2 0.0 - 7.0 % 03/04/2024 12:39 PM [facility] Basophil % 0.7 0.0 - 1.6 % 03/04/2024 12:39 PM [facility] Immature Granulocytes % 0.2 0.0 - 1.0 % 03/04/2024 12:39 PM [facility] Neutrophil Absolute 3.37 1.60 - 7.50 x10E9/L 03/04/2024 12:39 PM [facility] Lymphocyte Absolute 1.47 1.00 - 4.40 x10E9/L 03/04/2024 12:39 PM [facility] Monocyte Absolute 0.53 0.15 - 1.00 x10E9/L 03/04/2024 12:39 PM [facility] Eosinophil Absolute 0.12 0.00 - 0.60 x10E9/L 03/04/2024 12:39 PM [facility] Basophil Absolute 0.04 0.00 - 0.13 x10E9/L 03/04/2024 12:39 PM [facility] Blood BLOOD SPECIMEN / Unknown Lab Venipuncture / Unknown 03/04/2024 12:25 PM PATCHING MACHINE OPERATOR 03/04/2024 12:32 PM [facility] Anastasia Gandhi HUMAN RESOURCES PROJECT MANAGER-CONTRACT RUNNER LAB - HEMAT OLOGY ORDERABLES Performing Organization Address [facility]/State/[facility] Co de Phone Number [facility] [address] [place] [phone], [facility] [phone] * (ABNORMAL) COMPREHENSIVE METABOLIC PANEL (03/04/2024 12:25 PM [facility]) BUN 16 7 - 26 mg/dL 03/04/2024 12:59 PM [facility] Creatinine 0.92 0.56 - 0.96 mg/dL 03/04/2024 12:59 PM [facility] Sodium 141 136 - 145 mmol/L 03/04/2024 12:59 PM [facility] Potassium 4.6(H) 3.5 - 4.5 mmol/L 03/04/2024 12:59 PM [facility] Chloride 106 98 - 107 mmol/L 03/04/2024 12:59 PM [facility] CO2 26 22 - 29 mmol/L 03/04/2024 12:59 PM [facility] Glucose 110(H) 70 - 99 mg/dL 03/04/2024 12:59 PM [facility] Calcium 9.7 8.4 - 10.2 mg/dL 03/04/2024 12:59 PM [facility] Protein Total 7.5 6.0 - 8.3 g/dL 03/04/2024 12:59 PM [facility] Albumin 4.0 3.4 - 5.0 g/dL 03/04/2024 12:59 PM [facility] Bilirubin Total 0.6 0.2 - 1.2 mg/dL 03/04/2024 12:59 PM [facility] Alkaline Phosphatase 51 40 - 150 U/L 03/04/2024 12:59 PM [facility] ALT 26 5 - 55 U/L 03/04/2024 12:59 PM [facility] AST 30 5 - 34 U/L 03/04/2024 12:59 PM [facility] Anion Gap 9 6 - 16 03/04/2024 12:59 PM [facility] BUN/Creatinine Ratio 17 7 - 23 03/04/2024 12:59 PM [facility] Osmolality Calculated 294 275 - 295 mOsm/kg 03/04/2024 12:59 PM [facility] Albumin/Globulin Ratio 1.1 1.1 - 2.3 03/04/2024 12:59 PM [facility] eGFR by CKD-EPI 63(L) >=90 mL/min/1.7 3 m2 03/04/2024 12:59 PM [facility] Blood BLOOD SPECIMEN / Unknown Lab Venipuncture / Unknown 03/04/2024 12:25 PM PATCHING MACHINE OPERATOR 03/04/2024 12:32 PM [facility] Anastasia Gandhi HUMAN RESOURCES PROJECT MANAGER-CONTRACT RUNNER LAB - CHEMI STRY ORDERABLES [facility] [address] [place] [address], [facility] [phone] * US ABDOMEN LIMITED (03/04/2024 10:33 AM PATCHING MACHINE OPERATOR) Anatomical Region Laterality Modality Abdomen Ultrasound 03/04/2024 10:4 5 AM PATCHING MACHINE OPERATOR Impressions 03/04/2024 11:22 AM PATCHING MACHINE OPERATOR Impression: 1.Liver Visualization Score A: No or minimal limitations. 2.US-2 Subthreshold. Repeat surveillance US in 3-6 months. 3.Redemonstrated hepatic cirrhosis with sequela of portal hypertension. Report drafted by Jeff Leggett MD (resident). ILila MD have personally reviewed and interpreted this examination/study. > Interpreting Provider: Lila Pool MD on 03/04/2024 11:22 AM Narrative 03/04/2024 11:22 AM PATCHING MACHINE OPERATOR PROCEDURE: US ABDOMEN LIMITED DATE/TIME OF EXAM: [...] MD on 03/04/2024 11:22 AM Anastasia Gandhi HUMAN RESOURCES PROJECT MANAGER-CONTRACT RUNNER US ORDERABL ES * MICROALB/CREAT RATIO URINE [...] Recently Relevant to Health Maintenance Care Teams Air Quality Manager Relationship Specialty Start Date End Date Soy Joyce MD [address] [facility] [address] [place] [phone] PCP - General 02/04/21
--- OUTSIDE RECORDS SUMMARY | 2024-04-27 12:40 | XMS_ITS | Patient Health Record ---
Author Organization [facility] Address [address] [facility] [facility], [facility] [address] [place] [address] REASON FOR REFERRAL No Information MEDICATIONS Medication SIG (Take, Route, Frequency, Duration) Notes Start Date End Date Status Vitamin D (Ergocalciferol) 1.25 MG (47213 UT) TAKE 1 CAPSULE BY MOUTH EVERY OTHER WEEK for 30 Active PROBLEMS Problem Type ICD Code Onset Dates Problem Status W/U Status Risk SNOMED Code Notes Problem Type 2 diabetes mellitus with hyperglycemia (E11.65) Active confirmed Hyperglycemia due to type 2 diabetes mellitus (979182412568975 ) Problem Essential (primary) hypertension (I10) Active confirmed Essential hypertension (07979245) Problem Chronic kidney disease, stage 2 (mild) (N18.2) Active confirmed Chronic kidne y disease stage 2 (969010867) Problem Proteinuria, unspecified (R80.9) Active confirmed Proteinuria (28143220) PLAN OF TREATMENT No Information
--- OUTSIDE RECORDS SUMMARY | 2024-04-27 12:40 | XMS_ITS | Data Portability ---
Author Organization [place] - [employer], Main Office Address [address] [place] [address] Care Team Providers Care Forming Process Line Worker Name Role Phone ADITYA JOYCE Primary Care Provider ADITYA JOYCE Referring Provider FRAN WARNER Analytical Data Scientist PABLO HEART Outplacement Consultant ANASTASIA GANDHI Concrete Plant Laborer [phone] Assessment Encounter Date Assessment Date Assessment LastModified by Organization Details LastModified Time 06/25/2023 06/25/2023 07/26/2022: TSH 0.055L, FT4 2.10 [...] 04/23/2023: Dr Heart Gluc 125, AST/ALT 42/36 Not available 08/18/2023 10:52:32 11/24/2023 11/24/2023 07/26/2022: [...] 38/42 04/23/2023: Dr Heart Gluc 125, AST/ALT 4236 11/21/2023: MCV 101.1, PLT 98 TSH 7.700H Gluc 107, BUN 25, ALT/AST 50/55 12/10/2023: Dr Heart 45 minutes spent with the patient, labs reviewed, chart updated, discussed her referrals [email or web address] Not available 12/29/2023 19:12:51 03/31/2024 03/31/2024 07/26/2022: TSH 0.055L, FT4 2.10 11/27/2022: A1C 5.6 TSH 0.060L, FT4 3.00H Urine micro alb 84.4 Gluc 111, AST 39 PLT 142 03/11/2023: A1C 5.6 TSH 0.016L, FT4 2.72H Urine micro alb 29.5 Gluc 118, ALT/AST 38/42 04/23/2023: Dr Heart Gluc 125, AST/ALT 42/36 11/21/2023: MCV 101.1, PLT 98 TSH 7.700H Gluc 107, BUN 25, ALT/AST 50/55 12/10/2023: Dr Heart 03/24/2024: Urine micro alb 33.7 Gluc 128 MCV 100.2 45 minutes spent with the patient, labs reviewed, chart updated, discussed her referrals [email or web address] Not available 03/31/2024 14:44:19 Plan of Treatment Reminders Order Date Submit Date Provider Last Modified By Organization Details Last Modified Time Details Appointments Follow Up 15 2024 09:30A Rk rueda MD Not available Not available Not available Lab lipid panel, serum [address] (Lab), [address] [place] [address], [id number], 03/31/2024 16:09:44 CMP, serum or plasma [address] (Lab), [address] [place] [address], [address], 03/31/2024 16:09:44 CBC w/ auto diff [address] (Lab), [address] [place] [address], [address], 03/31/2024 16:09:44 TSH + free T4, serum [address] (Lab), [address] [place] [address], [address], 03/31/2024 16:09:44 vitami n D3, 25-hyd earnest, serum [address] (Lab), [address] [place] [address], [address], 03/31/2024 16:09:44 microa lbumin , urine [address] (Lab), [address], [place], [address], 03/31/2024 16:09:43 glycoh emoglo bin, total, blood [address] (Lab), [address], [place], [address], 03/31/2024 16:09:43 lipid panel, serum 2023 024 [email or web address] Not available 12/29/2023 12:29:21 CMP, serum or plasma 2023 024 ROMEO Not available 03/24/2024 13:23:16 CBC w/ auto diff 2023 024 [email or web address] Not available 12/29/2023 12:29:22 TSH + free T4, serum 2023 024 [email or web address] Not available 12/29/2023 12:29:22 vitami n D3, 25-hyd earnest, serum 2023 024 [email or web address] Not available 12/29/2023 12:29:22 microa lbumin , urine 2023 024 ROMEO Not available 03/27/2024 12:21:26 glycoh emoglo bin, total, blood 2023 024 [email or web address] Not available 12/29/2023 12:29:20 lipid panel, serum 2023 024 [email or web address] Not available 11/24/2023 15:38:36 CMP, serum or plasma 2023 024 [email or web address] Not available 11/24/2023 15:38:36 CBC w/ auto diff 2023 024 ROMEO Not available 12/10/2023 13:17:09 TSH + free T4, serum 2023 024 [email or web address] Not available 11/24/2023 15:38:36 vitami n D3, 25-hyd earnest, serum 2023 024 Not available 12/01/2023 17:15:44 microa lbumin , urine 2023 024 ATHENAFAX Not available 11/24/2023 15:38:36 glycoh emoglo bin, total, blood 2023 024 [email or web address] Not available 11/24/2023 15:38:36 lipid panel, serum 2023 024 ROMEO Not available 08/19/2023 13:17:40 CMP, serum or plasma 2023 024 ROMEO Not available 08/19/2023 13:17:47 CBC w/ auto diff 2023 024 ROMEO Not available 08/19/2023 13:10:19 TSH + free T4, serum 2023 024 ROMEO Not available 08/20/2023 10:02:42 vitami n D3, 25-hyd earnest, serum 2023 024 [email or web address] Not available 09/02/2023 09:57:58 microa lbumin , urine 2023 024 ROMEO Not available 08/19/2023 15:30:50 glycoh emoglo bin, total, blood 2023 024 ROMEO Not available 08/19/2023 14:57:00 lipid panel, serum 2023 024 ROMEO Not available 08/20/2023 10:02:41 CMP, serum or plasma 2023 024 ROMEO Not available 08/20/2023 10:02:41 CBC w/ auto diff 2023 024 ROMEO Not available 08/20/2023 10:02:41 TSH + free T4, serum 2023 024 [email or web address] Not available 12/22/2023 14:36:51 urinal ysis, dipsti ck 2023 024 [email or web address] , [address], [place], [address], 06/26/2023 08:59:57 microa lbumin , urine 2023 024 ROMEO Not available 08/20/2023 10:02:41 glycoh emoglo bin, total, blood 2023 024 Not available 12/22/2023 14:36:50 Referral gastro entero logist referr al 2024 025 [email or web address] Anastasia Gandhi VARIOUS EXCEPTIONALITIES TEACHER, [address] [facility], [place], [address], 03/31/2024 15:29:31 orthop edic surgeo n referr al 2024 025 [email or web address] Rich Leyva MD, [address], [address], [place], [address], 03/31/2024 15:30:20 pulmon ologis t referr al 2024 025 [email or web address] Fran Warner MD, [address] [facility], [place], [address], 03/31/2024 15:29:28 hemato logist referr al 2024 025 [email or web address] Pablo Heart MD, [address], [place], [address], 03/31/2024 15:29:29 gastro entero logist referr al 2024 025 [email or web address] Kylah Thompson MD, [address] [facility], [address], [place], [address], 03/31/2024 15:29:32 podiat rist referr al 2024 025 [email or web address] Inocencio Angeles Jr DPM, [address], [address], [place], [address], 03/31/2024 15:30:19 pulmon ologis t referr al 2023 024 Fran Warner MD, [address] [facility], [place], [address], 12/31/2023 14:37:10 nephro logist referr al 2023 024 [email or web address] Gael Banks MD (Nephrology, [address], [place], [address], 12/31/2023 14:40:00 hemato logist referr al 2023 024 [email or web address] Pablo Heart MD, [address], [place], [address], 12/31/2023 14:38:19 gastro entero logist referr al 2023 024 [email or web address] Anastasia Gandhi VARIOUS EXCEPTIONALITIES TEACHER, [address] [facility], [place], [address], 12/31/2023 14:38:20 orthop edic surgeo n referr al 2023 024 [email or web address] Kobe Pelaez PA, [address], [place], [address], 12/31/2023 14:40:00 gastro entero logist referr al 2023 024 [email or web address] Sharonda Collazo MD, [address], [place], [address], 12/31/2023 14:39:59 podiat rist referr al 2023 024 [email or web address] Inocencio Angeles Jr DPM, [address], [address], [place], [address], 12/31/2023 14:39:58 gastro entero logist referr al 2023 024 DYANA Gandhi VARIOUS EXCEPTIONALITIES TEACHER, [address] [facility], [address] Level, [place], [address], 11/24/2023 15:26:57 nephro logist referr al 2023 024 DYANA Banks MD (Nephrology, [address], [place], [address], 11/24/2023 15:27:00 orthop edic surgeo n referr al 2023 ROMEO Pelaez PA, [address], [place], [address], 11/24/2023 16:14:57 pulmon ologis t referr al 2023 024 [email or web address] Fran Warner MD, [address] [facility], [place], [address], 12/22/2023 14:38:12 hemato logist referr al 2023 024 [email or web address] Pablo Heart MD, [address], [place], [address], 12/22/2023 14:38:21 gastro entero logist referr al 2023 024 DYANA Collazo MD, [address], [place], [address], 11/24/2023 15:27:43 podiat rist referr al 2023 024 DYANA Angeles Jr DPM, [address], [address], [place], [address], 11/24/2023 15:28:34 gastro entero logist referr al 2023 024 [email or web address] Anastasia Gandhi VARIOUS EXCEPTIONALITIES TEACHER, [address] [facility], [place], [address], 02/19/2024 08:33:14 orthop edic surgeo n referr al 2023 024 [email or web address] Kobe Pelaez PA, [address], [place], [address], 02/19/2024 08:33:13 pulmon ologis t referr al 2023 024 [email or web address] Fran Warner MD, [address] [facility], [place], [address], 09/23/2023 17:33:30 hemato logist referr al 2023 024 [email or web address] Pablo Heart MD, [address], [place], [address], 09/23/2023 17:33:59 gastro entero logist referr al 2023 024 [email or web address] Sharonda Collazo MD, [address] [facility], [address], [place], [address], 02/23/2024 08:34:01 podiat rist referr al 2023 024 Inocencio Angeles Jr DPM, [address], [address], [place], [address], 02/23/2024 08:34:00 orthop edic surgeo n referr al 2023 024 [email or web address] Kobe MONCADA, [address], [place], [address], 12/22/2023 14:37:52 pulmon ologis t referr al 2023 024 [email or web address] Fran Warner MD, [address] [facility], [place], [address], 07/23/2023 08:17:13 hemato logist referr al 2023 024 [email or web address] Pablo Heart MD, [address], [place], [address], 07/23/2023 08:17:14 gastro entero logist referr al 2023 024 Sharonda Collazo MD, [address] [facility], [address], [place], [address], 12/22/2023 14:37:51 podiat rist referr al 2023 024 [email or web address] Blaine Faustin DPM, [address] [facility], [address], [place], [address], 12/22/2023 14:37:51 Procedures None record ed. Surgeries None record ed. Imaging DEXA, axial skelet on - Please call manny ordonez to suzy segura 2024 025 [facility] ([facility]), [address] [place], [address], 04/07/2024 10:02:38 DEXA, axial skelet on 2023 024 Not available 12/30/2023 16:59:39 DEXA, axial skelet on 2023 024 [email or web address] Not available 12/10/2023 12:00:50 Medication Orders venlaf axine ER 75 mg capsul e,exte nded releas e 24 hr 2024 025 ROME[id number], [address] [facility], [place], [place], [id number], 03/31/2024 14:48:57 venlaf axine ER 75 mg capsul e,exte nded releas e 24 hr 2023 [facility] #[id number], [address], [place], [place], [id number], 12/29/2023 12:15:54 Singul air 10 mg tablet 2023 024 [facility] #[id number], [address], [place], [place], [id number], 11/24/2023 15:25:05 Ozempi c 1 mg/dos e (4 mg/3 mL) subcut aneous pen inject or 2023 [facility] #[id number], [address], [place], [place], [id number], 11/24/2023 15:25:03 cyclob enzapr ine 10 mg tablet [email or web address] [facility] #53634, [address], [place], [place], [id number], 12/29/2023 11:05:50 Patient TargetsNo targets recorded. Patient Instructions Encounter Date Encounter Id Patient Instructions Last Modified By Organization Details Last Modified Time 08/18/2023 [id number] dementia rating scale-2* [email or web address] Not available 08/18/2023 11:58:33 alcohol misuse* [email or web address] Not available 08/18/2023 11:58:49 depression screening* [email or web address] Not available 08/18/2023 11:59:07 Timed Up and Go test (TUG)* [email or web address] Not available 08/18/2023 11:59:25 multi-dimensiona l health assessment questionnaire* [email or web address] Not available 08/18/2023 11:58:12 Personalized Hea lth Plan and Screening Recommendations Advance Directives - [...] Negative Active diagnosis, Continue current treatment plan [email or web address] Not available 08/18/2023 12:02:44 Reason for Referral Pastoral Assistant Referral for Type 2 diabetes mellitus without complication Referring Physician: Aditya Joyce Internal Medicine, Encounter Date: 06/25/2023 Analytical Data Scientist Referral for O bstructive sleep apnea syndrome Referring Physician: Aidtya Joyce Internal Medicine, Encounter Date: 06/25/2023 Referring Physician: Aditya Joyce Internal Medicine, Encounter Date: 06/25/2023 Concrete Plant Laborer Referral for Screening for malignant neoplasm of colon Referring Physician: Aditya Joyce Internal Medicine, Encounter Date: 06/25/2023 Orthopedic Surgeon Referral for Osteoarthritis of bilateral hip joints Referring Physician: Murtuza Kyaw Joyce Medicine, Encounter Date: 06/25/2023 Pastoral Assistant Referral for Type 2 diabetes mellitus without complication Referring Physician: Kyaw Mccann, Encounter Date: 08/18/2023 Analytical Data Scientist Referral for O bstructive sleep apnea syndrome Referring Physician: Kyaw Mccann, Encounter Date: 08/18/2023 Referring Physician: Kyaw Mccann, Encounter Date: 08/18/2023 Concrete Plant Laborer Referral for Screening for malignant neoplasm of colon Referring Physician: Kyaw Mccann, Encounter Date: 08/18/2023 Orthopedic Surgeon Referral for Osteoarthritis of bilateral hip joints Referring Physician: Kyaw Mccann, Encounter Date: 08/18/2023 Concrete Plant Laborer Referral for Cirrhosis of liver Referring Physician: Kyaw Mccann, Encounter Date: 08/18/2023 Pastoral Assistant Referral for Type 2 diabetes mellitus without complication Referring Physician: Kyaw Mccann, Encounter Date: 11/24/2023 Analytical Data Scientist Referral for O bstructive sleep apnea syndrome Referring Physician: Kyaw Mccann, Encounter Date: 11/24/2023 Referring Physician: Kyaw Mccann, Encounter Date: 11/24/2023 Concrete Plant Laborer Referral for Screening for malignant neoplasm of colon Referring Physician: Kyaw Mccann, Encounter Date: 11/24/2023 Orthopedic Surgeon Referral for Osteoarthritis of bilateral hip joints Referring Physician: Kyaw Mccann, Encounter Date: 11/24/2023 Concrete Plant Laborer Referral for Cirrhosis of liver Referring Physician: Kyaw Mccann, Encounter Date: 11/24/2023 Truck Caterer 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 Referring Physician: Aditya Joyce Internal Medicine, Encounter Date: 11/24/2023 Pastoral Assistant Referral for Type 2 diabetes mellitus without complication Referring Physician: Aditya Joyce Internal Medicine, Encounter Date: 12/29/2023 Analytical Data Scientist Referral for O bstructive sleep apnea syndrome Referring Physician: Aditya Joyce Internal Medicine, Encounter Date: 12/29/2023 Referring Physician: Aditya Joyce Internal Medicine, Encounter Date: 12/29/2023 Concrete Plant Laborer Referral for Screening for malignant neoplasm of colon Referring Physician: Aditya Joyce Internal Medicine, Encounter Date: 12/29/2023 Orthopedic Surgeon Referral for Osteoarthritis of bilateral hip joints Referring Physician: Aditya Joyce Internal Medicine, Encounter Date: 12/29/2023 Concrete Plant Laborer Referral for Cirrhosis of liver Referring Physician: Kyaw Mccann Medicine, Encounter Date: 12/29/2023 Truck Caterer 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 Referring Physician: Kyaw Mccann Medicine, Encounter Date: 12/29/2023 Pastoral Assistant Referral for Type 2 diabetes mellitus without complication Referring Physician: Aditya Joyce Internal Medicine, Encounter Date: 03/31/2024 Analytical Data Scientist Referral for O bstructive sleep apnea syndrome Referring Physician: Kyaw Mccann Medicine, Encounter Date: 03/31/2024 Referring Physician: Aditya Joyce Internal Medicine, Encounter Date: 03/31/2024 Orthopedic Surgeon Referral for Osteoarthritis of bilateral hip joints Referring Physician: Kyaw Mccann Medicine, Encounter Date: 03/31/2024 Concrete Plant Laborer Referral for Cirrhosis of liver Referring Physician: Aditya Joyce, Internal Medicine, Encounter Date: 03/31/2024 Concrete Plant Laborer Referral for Screening for malignant neoplasm of colon Referring Physician: Aditya Joyce, Internal Medicine, Encounter Date: 03/31/2024 Results Created Date Observation Date Name Description Value Unit Range Abnormal Flag Note LastModifiedBy Organization Detail LastModifiedTime 06/25/19 24 06/25/2023 urina lysis , dipst ick Leukocytes (reference range: negative georgina/ l) Negati ve Not Available [facility] Internal Med [facility] [address] [facility], [place], [address], 06/25/2023 16:21:08 06/25/19 24 06/25/2023 urina lysis , dipst ick Nitrite (reference rage: negative mg/dl) negati ve Not Available [facility] Internal [facility] [address] [facility] [address], [place], [address], 06/25/2023 16:21:08 06/25/19 24 06/25/2023 urina lysis , dipst ick Urobilinogen (reference range: 0.2-1 mg/dl) 0.2 Not Available [facility] Internal [facility] [address], [address], 06/25/2023 16:21:08 06/25/19 24 06/25/2023 urina lysis , dipst ick Protein (reference range: negative mg/dl) Negati ve Not Available [facility] Internal Med [facility] [address] [facility], [place], [address], 06/25/2023 16:21:08 06/25/19 24 06/25/2023 urina lysis , dipst ick pH (reference range: 5-7) 5.0 Not Available [facility] Internal Med [facility] [address], [place], [address], 06/25/2023 16:21:08 06/25/19 24 06/25/2023 urina lysis , dipst ick Blood (reference range: negative Thor/ l) Negati ve Not Available [facility] Internal [facility] [address], [place], [address], 06/25/2023 16:21:08 06/25/19 24 06/25/2023 urina lysis , dipst ick Specific Jean (reference range: 1.005-1.030) 1.015 Not Available [facility] Internal [facility] [address], [place], [address], 06/25/2023 16:21:08 06/25/19 24 06/25/2023 urina lysis , dipst ick Ketone (reference range: negative mg/dl) Negati ve Not Available [facility] Internal [facility] [address], [place], [address], 06/25/2023 16:21:08 06/25/19 24 06/25/2023 urina lysis , dipst ick Bilirubin (reference range: negative mg/dl) Negati ve Not Available [facility] Internal [facility] [address], [place], [address], 06/25/2023 16:21:08 06/25/19 24 06/25/2023 urina lysis , dipst ick Glucose (reference range: negative mg/dl) Negati ve Not Available [facility] Internal [facility] [address], [place], [address], 06/25/2023 16:21:08 06/25/19 24 06/25/2023 urina lysis , dipst ick Appearance Clear Not Available [facility] Internal [facility] [address], [place], [address], 06/25/2023 16:21:08 06/25/19 24 06/25/2023 urina lysis , dipst ick Color Yellow Not Available [facility] Internal Med [facility] [address], [place], [address], 06/25/2023 16:21:08 08/19/19 24 08/19/2023 CBC/C OMPLE TE BLD COUNT W/DIF F white blood cells 3.8 x10'3 /uL 4.2-10 .8 low Not Available [facility] (Lab) [address] [place], [address], 08/19/2023 13:10:18 08/19/19 24 08/19/2023 CBC/C OMPLE TE BLD COUNT W/DIF F red blood cells 4.28 x10'6 /uL 3.80-5 .20 Not Available [facility] (Lab) [address] [place], [address], 08/19/2023 13:10:18 08/19/19 24 08/19/2023 CBC/C OMPLE TE BLD COUNT W/DIF F hemoglobin 13.6 g/dL 12.0-1 5.6 Not Available [facility] (Lab) [address] [place], [address], 08/19/2023 13:10:18 08/19/19 24 08/19/2023 CBC/C OMPLE TE BLD COUNT W/DIF F hematocrit 43.3 % 35.7-4 5.7 Not Available [facility] (Lab) [address] [place], [address], 08/19/2023 13:10:18 08/19/19 24 08/19/2023 CBC/C OMPLE TE BLD COUNT W/DIF F mean red cell volume 101.2 fL 82.0-9 9.0 high Not Available [facility] (Lab) [address] [place], [address], 08/19/2023 13:10:18 08/19/19 24 08/19/2023 CBC/C OMPLE TE BLD COUNT W/DIF F mean red cell hemoglobin 31.8 pg 27.0-3 3.0 Not Available [facility] (Lab) [address] [place], [address], 08/19/2023 13:10:18 08/19/19 24 08/19/2023 CBC/C OMPLE TE BLD COUNT W/DIF F mean RBC HGB concentratio n 31.4 g/dL 31.0-3 6.0 Not Available [facility] (Lab) [address] [place], [address], 08/19/2023 13:10:18 08/19/19 24 08/19/2023 CBC/C OMPLE TE BLD COUNT W/DIF F red cell distribution width 14.4 % 11.8-1 5.5 Not Available [facility] (Lab) [address] [place], [address], 08/19/2023 13:10:18 08/19/19 24 08/19/2023 CBC/C OMPLE TE BLD COUNT W/DIF F platelets 149 x10'3 /uL 150-40 0 low Not Available [facility] (Lab) [address] [place], [address], 08/19/2023 13:10:18 08/19/19 24 08/19/2023 CBC/C OMPLE TE BLD COUNT W/DIF F mean platelet volume 9.8 fL 9.0-12 .4 Not Available [facility] (Lab) [address] [place], [address], 08/19/2023 13:10:18 08/19/19 24 08/19/2023 CBC/C OMPLE TE BLD COUNT W/DIF F neutrophils 54.0 % 39.0-7 2.0 Not Available [facility] (Lab) [address] [place], [address], 08/19/2023 13:10:18 08/19/19 24 08/19/2023 CBC/C OMPLE TE BLD COUNT W/DIF F lymphocytes 30.4 % 16.0-4 7.0 Not Available [facility] (Lab) [address] [place], [address], 08/19/2023 13:10:18 08/19/1908/19/2023 CBC/C OMPLE TE BLD COUNT W/DIF F monocytes 9.8 % 5.0-12 .0 Not Available [facility] (Lab) [address] [place], [address], 08/19/2023 13:10:18 08/19/1908/19/2023 CBC/C OMPLE TE BLD COUNT W/DIF F eosinophils 4.5 % 1.0-7. 0 Not Available [facility] (Lab) [address] [place], [address], 08/19/2023 13:10:18 08/19/1908/19/2023 CBC/C OMPLE TE BLD COUNT W/DIF F basophils 0.8 % 0.0-2. 0 Not Available [facility] (Lab) [address] [place], [address], 08/19/2023 13:10:18 08/19/19 24 08/19/2023 CBC/C OMPLE TE BLD COUNT W/DIF F immature granulocytes 0.5 % 0.00-0 .50 Not Available [facility] (Lab) [address] [place], [address], 08/19/2023 13:10:18 08/19/19 24 08/19/2023 CBC/C OMPLE TE BLD COUNT W/DIF F neutrophils, absolute count 2.04 x10'3 /uL 1.5-8. 0 Not Available [facility] (Lab) [address] [place], [address], 08/19/2023 13:10:18 08/19/19 24 08/19/2023 CBC/C OMPLE TE BLD COUNT W/DIF F lymphocytes, absolute count 1.15 x10'3 /uL 1.07-3 .43 Not Available [facility] (Lab) [address] [place], [address], 08/19/2023 13:10:18 08/19/19 24 08/19/2023 CBC/C OMPLE TE BLD COUNT W/DIF F monocytes, absolute count 0.37 x10'3 /uL 0.29-0 .99 Not Available [facility] (Lab) [address] [place], [address], 08/19/2023 13:10:18 08/19/19 24 08/19/2023 CBC/C OMPLE TE BLD COUNT W/DIF F eosinophils, absolute count 0.17 x10'3 /uL 0.02-0 .53 Not Available [facility] (Lab) [address] [place], [address], 08/19/2023 13:10:18 08/19/1908/19/2023 CBC/C OMPLE TE BLD COUNT W/DIF F basophils, absolute count 0.03 x10'3 /uL 0.01-0 .08 Not Available [facility] (Lab) [address] [place], [address], 08/19/2023 13:10:18 08/19/1908/19/2023 CBC/C OMPLE TE BLD COUNT W/DIF F immature granulocytes ,absolute 0.02 x10'3 /uL 0.00-0 .05 Not Available [facility] (Lab) [address] [place], [address], 08/19/2023 13:10:18 08/19/19 24 08/19/2023 CBC/C OMPLE TE BLD COUNT W/DIF F nucleated red blood cells 0.0 % -0 Not Available [facility] (Lab) [address] [place], [address], 08/19/2023 13:10:18 08/19/19 24 08/19/2023 CBC/C OMPLE TE BLD COUNT W/DIF F NRBC# 0.00 x10'3 /uL Not Available [facility] (Lab) [address] [place], [address], 08/19/2023 13:10:18 08/19/19 24 08/19/2023 LIPID PANEL cholesterol 137 mg/dL 140-19 9 low NIH VEENA NSUS RECOM MENDA TION FOR NISA STERO L: ADULT CHILD LOW RISK: <200 <170 BORDE RLINE : <200- 239 ----- HIGH RISK: >240 >200 Not Available [facility] (Lab) [address] [place], [address], 08/19/2023 13:17:40 08/19/19 24 08/19/2023 LIPID PANEL triglyceride s 136 mg/dL 0-150 NIH VEENA NSUS REPOR T RECOM MENDA TION FOR TRIGL YCERI NYDIA: ADULT CHILD LOW RISK: <150 ----- BODER LINE: 150-1 99 ----- HIGH RISK: >200 ----- Not Available [facility] (Lab) [address] [place], [address], 08/19/2023 13:17:40 08/19/19 24 08/19/2023 LIPID PANEL HDL cholesterol 65 mg/dL 40- Not Available [facility] (Lab) [address] [place], [address], 08/19/2023 13:17:40 08/19/19 24 08/19/2023 LIPID PANEL [...] WILL NOT BE REPOR ALHAJI. Not Available [facility] (Lab) [address] [place], [address], 08/19/2023 13:17:40 08/19/19 24 08/19/2023 COMPR EHENS FLY METAB OLIC PANEL sodium 137 mmol/ L 137-14 5 Not Available [facility] (Lab) [address] [place], [address], 08/19/2023 13:17:46 08/19/19 24 08/19/2023 COMPR EHENS FLY METAB OLIC PANEL potassium 4.9 mmol/ L 3.5-5. 1 Not Available [facility] (Lab) [address] [place], [address], 08/19/2023 13:17:46 08/19/19 24 08/19/2023 COMPR EHENS FLY METAB OLIC PANEL chloride 108 mmol/ L 98-107 high Not Available [facility] (Lab) [address] [place], [address], 08/19/2023 13:17:46 08/19/19 24 08/19/2023 COMPR EHENS FLY METAB OLIC PANEL carbon dioxide 29 mmol/ L 22-30 Not Available [facility] (Lab) [address] [place], [address], 08/19/2023 13:17:46 08/19/19 24 08/19/2023 COMPR EHENS FLY METAB OLIC PANEL anion gap 4.9 mmol/ L 14-22 low Not Available [facility] (Lab) [address] [place], [address], 08/19/2023 13:17:46 08/19/19 24 08/19/2023 COMPR EHENS FLY METAB OLIC PANEL glucose 102 mg/dL 70-99 high Not Available [facility] (Lab) [address] [place], [address], 08/19/2023 13:17:46 08/19/19 24 08/19/2023 COMPR EHENS FLY METAB OLIC PANEL BUN 15 mg/dL 8-19 Not Available [facility] (Lab) [address] [place], [address], 08/19/2023 13:17:46 08/19/19 24 08/19/2023 COMPR EHENS FLY METAB OLIC PANEL creatinine 1.01 mg/dL 0.66-1 .25 Not Available [facility] (Lab) [address] [place], [address], 08/19/2023 13:17:46 08/19/19 24 08/19/2023 COMPR EHENS FLY METAB OLIC PANEL GFR 53 Refer ence Range : [place] GFR Healt hy Adult : >60 [...] calcu lator is avail able on the [facility] websi te: [email or web address] :[email or web address] [email or web address]/pr ofess ional s/kdo qi/gf r_cal culat or Not Available [facility] (Lab) [address] [place], [address], 08/19/2023 13:17:46 08/19/19 24 08/19/2023 COMPR EHENS FLY METAB OLIC PANEL alkaline phosphatase 65 U/L 38-126 Not Available [facility] (Lab) [address] [place], [address], 08/19/2023 13:17:46 08/19/19 24 08/19/2023 COMPR EHENS FLY METAB OLIC PANEL alanine aminotransfe rase 36 U/L 0-35 high Not Available [facility] (Lab) [address] [place], [address], 08/19/2023 13:17:46 08/19/19 24 08/19/2023 COMPR EHENS FLY METAB OLIC PANEL aspartate aminotransfe rase 44 U/L 15-37 high Not Available [facility] (Lab) [address] [place], [address], 08/19/2023 13:17:46 08/19/19 24 08/19/2023 COMPR EHENS FLY METAB OLIC PANEL bilirubin, total 0.50 mg/dL 0.20-1 .30 Not Available [facility] (Lab) [address] [place], [address], 08/19/2023 13:17:46 08/19/19 24 08/19/2023 COMPR EHENS FLY METAB OLIC PANEL calcium 9.0 mg/dL 8.4-10 .2 Not Available [facility] (Lab) [address] [place], [address], 08/19/2023 13:17:46 08/19/19 24 08/19/2023 COMPR EHENS FLY METAB OLIC PANEL total protein 6.8 g/dL 6.3-8. 2 Not Available [facility] (Lab) [address] [place], [address], 08/19/2023 13:17:46 08/19/19 24 08/19/2023 COMPR EHENS FLY METAB OLIC PANEL albumin 3.9 g/dL 3.0-4. 4 Not Available [facility] (Lab) [address] [place], [address], 08/19/2023 13:17:46 08/19/19 24 08/19/2023 COMPR EHENS FLY METAB OLIC PANEL globulin 2.9 g/dL 2.6-4. 2 Not Available [facility] (Lab) [address] [place], [address], 08/19/2023 13:17:46 08/19/19 24 08/19/2023 COMPR EHENS FLY METAB OLIC PANEL A/G ratio 1.3 ratio 1.0-2. 0 Not Available [facility] (Lab) [address] [place], [address], 08/19/2023 13:17:46 08/19/19 24 08/19/2023 T4 FREE free T4 0.88 NG/dL 0.78-2 .19 Not Available [facility] (Lab) [address] [place], [address], 08/19/2023 13:29:08 08/19/19 24 08/19/2023 TSH thyroid-stim ulating hormone 10.500 uIU/m L 0.465- 4.680 high Not Available [facility] (Lab) [address] [place], [address], 08/19/2023 13:29:25 08/19/19 24 08/19/2023 HEMOG LOBIN A1C HA1C 5.8 % 4.0-6. 0 Diabe nakul Albae marisela Crite thomas: <5.7% Consi stent with absen ce of diabe nakul 5.7-6 .4% Consi stent with incre ased risk for diabe nakul (pred iabet es) >OR=6 .5% Consi stent with diabe nakul REFER ENCE: Diabe nakul Care 2016, 39(Kovacs ppl.1 ):s13 -s22 Not Available [facility] (Lab) [address] [place], [address], 08/19/2023 14:57:00 08/19/19 24 08/19/2023 MICRO ALBUM IN RANDO M URINE microalbumin , urine <6.0 mg/L 0.0-16 .6 Not Available [facility] (Lab) [address] [place], [address], 08/19/2023 15:30:50 08/19/19 24 08/25/2023 25-HY DROXY VITAM IN D LCMS D2+D3 25-hydroxy, vitamin D 34 NG/mL Refer ence Range : All Ages: Targe t level s 30 - 100 Not Available [facility] (Lab) [address] [place], [address], 08/25/2023 21:07:27 08/19/19 24 08/25/2023 25-HY DROXY VITAM IN D LCMS D2+D3 25-hydroxy, vitamin D-2 10 NG/mL This test was giorgio luis and its perfo rmanc e benjamin cteri stics deter mined by [facility]. It has not been clear ed or appro parmjit by the Food and Drug Admin istra tion. Not Available [facility] (Lab) [address] [place], [address], 08/25/2023 21:07:27 08/19/19 24 08/25/2023 25-HY DROXY VITAM IN D LCMS D2+D3 25-hydroxy, vitamin D-3 24 NG/mL This test was giorgio luis and its perfo rmanc e benjamin bennettri stics deter mined by [facility]. It has not been clear ed or appro parmjit by the Food and Drug Admin istra tion. Perfo rmed at: [facility] [employer] [address] [place] [id number] Lab Direc tor: Luis Armando manrique MD, Phone : [phone] Not Available [facility] (Lab) [address] [place], [address], 08/25/2023 21:07:27 11/21/1911/21/2023 COMPR EHENS FLY METAB OLIC PANEL sodium 139 mmol/ L 137-14 5 Not Available [facility] (Lab) [address] [place], [address], 11/21/2023 18:30:15 11/21/19 24 11/21/2023 COMPR EHENS FLY METAB OLIC PANEL potassium 5.0 mmol/ L 3.5-5. 1 Not Available [facility] (Lab) [address] [place], [address], 11/21/2023 18:30:15 11/21/19 24 11/21/2023 COMPR EHENS FLY METAB OLIC PANEL chloride 104 mmol/ L 98-107 Not Available [facility] (Lab) [address] [place], [address], 11/21/2023 18:30:15 11/21/19 24 11/21/2023 COMPR EHENS FLY METAB OLIC PANEL carbon dioxide 27 mmol/ L 22-30 Not Available [facility] (Lab) [address] [place], [address], 11/21/2023 18:30:15 11/21/19 24 11/21/2023 COMPR EHENS FLY METAB OLIC PANEL anion gap 13.0 mmol/ L 14-22 low Not Available [facility] (Lab) [address] [place], [address], 11/21/2023 18:30:15 11/21/19 24 11/21/2023 COMPR EHENS FLY METAB OLIC PANEL glucose 107 mg/dL 70-99 high Not Available [facility] (Lab) [address] [place], [address], 11/21/2023 18:30:15 11/21/19 24 11/21/2023 COMPR EHENS FLY METAB OLIC PANEL BUN 25 mg/dL 8-19 high Not Available [facility] (Lab) [address] [place], [address], 11/21/2023 18:30:15 11/21/19 24 11/21/2023 COMPR EHENS FLY METAB OLIC PANEL creatinine 1.03 mg/dL 0.66-1 .25 Not Available [facility] (Lab) [address] [place], [address], 11/21/2023 18:30:15 11/21/19 24 11/21/2023 COMPR EHENS FLY METAB OLIC PANEL GFR 52 Refer ence Range : [place] GFR Healt hy Adult : >60 [...] calcu lator is avail able on the [facility] websi te: https :[email or web address] toth.o tarik/pr ofess ional s/kdo qi/gf r_cal culat or Not Available [facility] (Lab) [address] [place], [address], 11/21/2023 18:30:15 11/21/19 24 11/21/2023 COMPR EHENS FLY METAB OLIC PANEL alkaline phosphatase 65 U/L 38-126 Not Available [facility] (Lab) [address] [place], [address], 11/21/2023 18:30:15 11/21/19 24 11/21/2023 COMPR EHENS FLY METAB OLIC PANEL alanine aminotransfe rase 50 U/L 0-35 high Not Available [facility] (Lab) [address] [place], [address], 11/21/2023 18:30:15 11/21/19 24 11/21/2023 COMPR EHENS FLY METAB OLIC PANEL aspartate aminotransfe rase 55 U/L 15-37 high Not Available [facility] (Lab) [address] [place], [address], 11/21/2023 18:30:15 11/21/19 24 11/21/2023 COMPR EHENS FLY METAB OLIC PANEL bilirubin, total 0.40 mg/dL 0.20-1 .30 Not Available [facility] (Lab) [address] [place], [address], 11/21/2023 18:30:15 11/21/19 24 11/21/2023 COMPR EHENS FLY METAB OLIC PANEL calcium 9.8 mg/dL 8.4-10 .2 Not Available [facility] (Lab) [address] [place], [address], 11/21/2023 18:30:15 11/21/1911/21/2023 COMPR EHENS FLY METAB OLIC PANEL total protein 7.1 g/dL 6.3-8. 2 Not Available [facility] (Lab) [address] [place], [address], 11/21/2023 18:30:15 11/21/1911/21/2023 COMPR EHENS FLY METAB OLIC PANEL albumin 4.1 g/dL 3.0-4. 4 Not Available [facility] (Lab) [address] [place], [address], 11/21/2023 18:30:15 11/21/19 24 11/21/2023 COMPR EHENS FLY METAB OLIC PANEL globulin 3.0 g/dL 2.6-4. 2 Not Available [facility] (Lab) [address] [place], [address], 11/21/2023 18:30:15 11/21/1911/21/2023 COMPR EHENS FLY METAB OLIC PANEL A/G ratio 1.4 ratio 1.0-2. 0 Not Available [facility] (Lab) [address] [place], [address], 11/21/2023 18:30:15 11/21/1911/21/2023 LIPID PANEL cholesterol 143 mg/dL 140-19 9 NIH VEENA NSUS RECOM MENDA TION FOR NISA STERO L: ADULT CHILD LOW RISK: <200 <170 BORDE RLINE : <200- 239 ----- HIGH RISK: >240 >200 Not Available [facility] (Lab) [address] [place], [address], 11/21/2023 18:30:19 11/21/19 24 11/21/2023 LIPID PANEL triglyceride s 112 mg/dL 0-150 NIH VEENA NSUS REPOR T RECOM MENDA TION FOR TRIGL YCERI NYDIA: ADULT CHILD LOW RISK: <150 ----- BODER LINE: 150-1 99 ----- HIGH RISK: >200 ----- Not Available [facility] (Lab) [address] [place], [address], 11/21/2023 18:30:19 11/21/1911/21/2023 LIPID PANEL HDL cholesterol 79 mg/dL 40- Not Available [facility] (Lab) [address] [place], [address], 11/21/2023 18:30:19 11/21/1911/21/2023 LIPID PANEL LDL cholesterol, calculated 42 mg/dL [...] WILL NOT BE REPOR ALHAJI. Not Available [facility] (Lab) [address] [place], [address], 11/21/2023 18:30:19 11/21/19 24 11/21/2023 T4 FREE free T4 1.04 NG/dL 0.78-2 .19 Not Available [facility] (Lab) [address] [place], [address], 11/21/2023 18:40:56 11/21/1911/21/2023 TSH thyroid-stim ulating hormone 7.700 uIU/m L 0.465- 4.680 high Not Available [facility] (Lab) [address] [place], [address], 11/21/2023 18:57:15 11/21/1911/21/2023 VITAM IN D 25-HY DROXY [id number] 47.6 NG/mL 30-100 Vitam in D Statu s: Defic ient: <20 ng/mL Insuf ficie nt: 20-29 ng/mL Suffi cient : 30-10 0 ng/mL Not Available [facility] (Lab) [address] [place], [address], 11/21/2023 19:04:57 11/21/1911/21/2023 CBC/C OMPLE TE BLD COUNT W/DIF F white blood cells 6.6 x10'3 /uL 4.2-10 .8 Not Available [facility] (Lab) [address] [place], [address], 11/21/2023 19:07:05 11/21/1911/21/2023 CBC/C OMPLE TE BLD COUNT W/DIF F red blood cells 4.54 x10'6 /uL 3.80-5 .20 Not Available [facility] (Lab) [address] [place], [address], 11/21/2023 19:07:05 11/21/1911/21/2023 CBC/C OMPLE TE BLD COUNT W/DIF F hemoglobin 14.6 g/dL 12.0-1 5.6 Not Available [facility] (Lab) [address] [place], [address], 11/21/2023 19:07:05 11/21/1911/21/2023 CBC/C OMPLE TE BLD COUNT W/DIF F hematocrit 45.9 % 35.7-4 5.7 high Not Available [facility] (Lab) [address] [place], [address], 11/21/2023 19:07:05 11/21/1911/21/2023 CBC/C OMPLE TE BLD COUNT W/DIF F mean red cell volume 101.1 fL 82.0-9 9.0 high Not Available [facility] (Lab) [address] [place], [address], 11/21/2023 19:07:05 11/21/1911/21/2023 CBC/C OMPLE TE BLD COUNT W/DIF F mean red cell hemoglobin 32.2 pg 27.0-3 3.0 Not Available [facility] (Lab) [address] [place], [address], 11/21/2023 19:07:05 11/21/1911/21/2023 CBC/C OMPLE TE BLD COUNT W/DIF F mean RBC HGB concentratio n 31.8 g/dL 31.0-3 6.0 Not Available [facility] (Lab) [address] [place], [address], 11/21/2023 19:07:05 11/21/1911/21/2023 CBC/C OMPLE TE BLD COUNT W/DIF F red cell distribution width 14.2 % 11.8-1 5.5 Not Available [facility] (Lab) [address] [place], [address], 11/21/2023 19:07:05 11/21/1911/21/2023 CBC/C OMPLE TE BLD COUNT W/DIF F platelets 98 x10'3 /uL 150-40 0 low Not Available [facility] (Lab) [address] [place], [address], 11/21/2023 19:07:05 11/21/1911/21/2023 CBC/C OMPLE TE BLD COUNT W/DIF F neutrophils 53.1 % 39.0-7 2.0 Not Available [facility] (Lab) [address] [place], [address], 11/21/2023 19:07:05 11/21/19 24 11/21/2023 CBC/C OMPLE TE BLD COUNT W/DIF F lymphocytes 31.6 % 16.0-4 7.0 Not Available [facility] (Lab) [address] [place], [address], 11/21/2023 19:07:05 11/21/1911/21/2023 CBC/C OMPLE TE BLD COUNT W/DIF F monocytes 10.5 % 5.0-12 .0 Not Available [facility] (Lab) [address] [facility] [place], [address], 11/21/2023 19:07:05 11/21/1911/21/2023 CBC/C OMPLE TE BLD COUNT W/DIF F eosinophils 3.4 % 1.0-7. 0 Not Available [facility] (Lab) [address] [place], [address], 11/21/2023 19:07:05 11/21/1911/21/2023 CBC/C OMPLE TE BLD COUNT W/DIF F basophils 0.9 % 0.0-2. 0 Not Available [facility] (Lab) [address] [place], [address], 11/21/2023 19:07:05 11/21/1911/21/2023 CBC/C OMPLE TE BLD COUNT W/DIF F immature granulocytes 0.5 % 0.00-0 .50 Not Available [facility] (Lab) [address] [place], [address], 11/21/2023 19:07:05 11/21/1911/21/2023 CBC/C OMPLE TE BLD COUNT W/DIF F neutrophils, absolute count 3.49 x10'3 /uL 1.5-8. 0 Not Available [facility] (Lab) [address] [place], [address], 11/21/2023 19:07:05 11/21/19 24 11/21/2023 CBC/C OMPLE TE BLD COUNT W/DIF F lymphocytes, absolute count 2.07 x10'3 /uL 1.07-3 .43 Not Available [facility] (Lab) [address] [place], [address], 11/21/2023 19:07:05 11/21/1911/21/2023 CBC/C OMPLE TE BLD COUNT W/DIF F monocytes, absolute count 0.69 x10'3 /uL 0.29-0 .99 Not Available [facility] (Lab) [address] [place], [address], 11/21/2023 19:07:05 11/21/1911/21/2023 CBC/C OMPLE TE BLD COUNT W/DIF F eosinophils, absolute count 0.22 x10'3 /uL 0.02-0 .53 Not Available [facility] (Lab) [address] [place], [address], 11/21/2023 19:07:05 11/21/1911/21/2023 CBC/C OMPLE TE BLD COUNT W/DIF F basophils, absolute count 0.06 x10'3 /uL 0.01-0 .08 Not Available [facility] (Lab) [address] [place], [address], 11/21/2023 19:07:05 11/21/1911/21/2023 CBC/C OMPLE TE BLD COUNT W/DIF F immature granulocytes ,absolute 0.03 x10'3 /uL 0.00-0 .05 Not Available [facility] (Lab) [address] [place], [address], 11/21/2023 19:07:05 11/21/1911/21/2023 CBC/C OMPLE TE BLD COUNT W/DIF F nucleated red blood cells 0.0 % -0 Not Available [facility] (Lab) [address] [place], [address], 11/21/2023 19:07:05 11/21/1911/21/2023 CBC/C OMPLE TE BLD COUNT W/DIF F NRBC# 0.00 x10'3 /uL Not Available [facility] (Lab) [address] [place], [address], 11/21/2023 19:07:05 06/24/19 24 XR, hip + pelvi s, bilat eral, 3 or 4 view [facility] [address] [facility] [place] [address] Patisami t Name: MERCEDES QUIROZ Access ion #: [id number] Sex: F : 1944 6 Dictat ed By: Latasha Dawn Attend ing Physic gerber: HOME CALDERA Orderi Physic gerber: HOME CALDERA Exam Date: 2023 11:19 AM Exam Name: [...] at 2023 12:10: 59 PM Page 1 [email or web address] [facility] (Imaging) [address] [place], [address], 07/09/2023 15:01:58 06/24/19 24 06/24/2023 XR, hip, bilat eral No observ ation record ed. [email or web address] [facility] [address] [place], [address], 07/09/2023 15:01:58 06/24/19 24 SI joint s [id number] [facility] [address] [place] [address] Patien t Name: MERCEDES QUIROZ Access ion #: [id number] Sex: F : 1944 6 Dictat ed By: Latasha Dawn Attend ing Physic gerber: HOME CALDERA Orderi ng Physic gerber: TOBYMEGHANN PARRY MURTUZ A Exam Date: 2023 11:28 AM Exam Name: [...] at 2023 12:17: 51 PM Page 1 [email or web address] [facility] (Imaging) [address] [place] [address], [address], 07/09/2023 15:01:59 06/24/19 24 XR, lumbo sacra l spine , 2 or 3 view [facility] [address] [place] [id number] [phone] Patien t Name: SAPPHIRE QUIROZITH Access ion #: [id number] Sex: F : 1944 6 Dictat ed By: Latasha Dawn Attend ing Physic gerber: HOME CALDERA Orderjonathan ng Physic gerber: AKILA PARRY MURTUZ A Exam Date: 2023 11:21 AM Exam Name: [...] at 2023 12:18: 36 PM Page [address] (Imaging) [address] [place], [address], 07/09/2023 15:01:59 06/24/19 24 06/24/2023 XR, sacro iliac joint (s) No observ ation record ed. [address] [place], [address], 07/09/2023 15:02:00 06/24/19 24 06/24/2023 XR, lumbo sacra l spine , 2 or 3 view No observ ation record ed. [address] [place], [address], 10/22/2023 10:35:09 02/02/20 24 02/02/2024 US, abdom en No observ ation record ed. [address] [place], [address], 02/05/2024 09:38:20 03/10/19 25 03/10/2024 imagi ng/di agnos tic resul t No observ ation record ed. [address], [place], [address], 03/10/2024 19:02:45 04/20/19 25 04/12/2024 imagi ng/di agnos tic resul t No observ ation record ed. [facility] [address] [facility] [address], [place], [address], 04/19/2024 19:45:25 04/20/19 25 04/16/2024 imagi ng/di nikko tic resul t No observ ation record ed. [facility] [address] , [place], [address], 04/19/2024 19:48:00 Result Notes None recorded. Problems Name Problem SNOMED Code Status Onset Date Resolution Date Notes Provider Name and Address Organization Details Recorded Time Gastroesop hageal reflux disease without esophagiti s 227929134 Active 2022 Aditya lancaster MD [address], [place], [address] , [employer] 3 12:23:57 Thrombocyt openic disorder 131460826 Active 2022 Aditya lancaster MD [address], [place], [address] , [employer] 3 12:24:11 Moderate recurrent major depression 13841219 Active 2022 Aditya lancaster MD [address], [address], [place], [address] , [employer] 3 12:25:15 Environmen shayy allergy 057268620 Active 2022 Aditya lancaster MD [address], [address], [place], [address] , [employer] 3 12:26:00 Osteoarthr 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 5323357077633 00 Active 2022 Dima Ramos MD [address], [place], [address] , [employer] 3 15:09:42 COVID-19 663501361 Active 2022 Katie hernandez, [place] [facility] 3 14:26:23 Chronic kidney disease 782598467 Active 2022 Aditya lancaster MD [address], [place], [address] , [facility] 3 12:25:04 Restless legs 27595491 Active 2023 Aditya lancaster MD [address], [place], [address] , [facility] 4 10:43:59 Sinus tachycardi a 78630610 Active 2023 Aditya lancaster MD [address], [place], [address] , [facility] - [facility] 4 09:35:59 Osteoarthr itis of bilateral hip joints 1451383755802 05 Active 2023 Aditya lancaster MD [address], [place], [address] , [facility] - [facility] 4 16:02:02 Deep venous thrombosis 193859815 Active Not Available [facility] 3 09:34:23 Body mass index 30+ - obesity 830636160 Active 2018 Not Available [facility] 3 09:34:23 Cataract 641293990 Active Not Available [facility] 3 09:34:23 Cirrhosis of liver 60597083 Active 2018 Not Available [facility] 3 09:34:23 Localized, primary osteoarthr itis of the hand 222572585 Active Not Available [facility] 3 09:34:23 Osteoarthr itis of knee 321756813 Active Not Available [facility] 3 09:34:23 Cervical spondylosi s without myelopathy 004207833 Active Not Available [facility] 3 09:34:23 Vitamin D deficiency 60816617 Active 2021 Not Available [facility] 3 09:34:23 Hypothyroi dism 38243485 Active Not Available [facility] 3 09:34:23 Anxiety 80739865 Active 2017 Not Available [facility] 3 09:34:23 Hyperlipid emia 68132128 Active 2021 Not Available [facility] 3 09:34:23 Essential hypertensi on 41796927 Active 2017 Not Available [facility] 3 09:34:23 Rhinitis 95663708 Active Not Available [facility] 3 09:34:23 Diabetes mellitus 15159652 Active Not Available [facility] 3 09:34:23 Obstructiv e sleep apnea syndrome 87804701 Active 2018 Not Available [facility] 3 09:34:24 Type 2 diabetes mellitus without complicati on 163719923 Active 2024 Aditya lancaster MD [address], [place], [address] , [place] [facility] 5 11:00:39 Forgetful 11565599 Active 2024 Aditya lancaster MD [address], [place], [address] , [place] [facility] 5 11:00:39 Pain of bilateral knee joints 5483809973228 04 Active 2024 Aditya lancaster MD [address], [place], [address] , [place] [facility] 5 11:00:39 Chronic neck pain 1439389435235 Active 2024 Aditya lancaster MD [address], [place], [address] , [facility] 5 11:00:39 Pain of right shoulder joint 2292876798331 9100 Active 2024 Aditya lancaster MD [address], [place], [address] , [facility] [employer] [facility] 5 11:00:39 Pruritic rash 09043865 Active 2024 Aditya lancaster MD [address], [place], [address] , [facility] - [facility] [employer] [facility] 5 11:00:39 Low back pain 442379836 Active 2024 Aditya lancaster MD [address] [facility] [address], [place], [address] , [facility] [facility] [employer] [facility] 11:00:39 Notes:CPAP set up 05/12/23 C PAP compliance 06/12/23 Medical History: Anxiety/Depression COVID infection 10/2022 Rhinitis Bruxism Obesity with MINA, 12/28/17, AHI = 73, on CPAP c/o IVRC Hypothyroidism Hyperlipidemia Hypertension T2DM with microalbuminuria JEAN PIERRE Cirrhosis CKD Vit D deficiency Thrombocytopenia Right DVT Cervical spondylosis Left hip OA Procedure History: T&A 194 Tubal ligation 1978 Left elbow/wrist surgery 1983 Cholecystectomy 1993 Right cataract extraction with IOL [...] CPT Code, subsequent completed Puneet King LPN [facility] [employer] 08/12/2023 11:06:57 024 Colonoscopy completed RAMÓN [email or web address] [facility] [employer] 08/18/2023 10:39:18 023 Ortho - Cortisone Injection completed Dima Ramos MD [address], [facility] [address], [place], [address], [facility] [employer] [facility] [employer] [facility] 10/01/2022 15:08:00 021 Most Recent Bone Density completed Not Available [employer] 04/10/2022 03:14:36 06/24/2 020 Date of Last Colonoscopy completed Not Available [facility] 04/10/2022 03:14:36 013 Total knee arthroplasty completed Not [facility] 04/10/2022 03:14:37 013 Total knee arthroplasty completed Not Available [facility] 04/10/2022 03:14:37 Gastrointestinal Surgery completed Not Available [facility] 04/10/2022 03:14:37 other completed Not Available [facility] 04/10/2022 03:14:37 Gallbladder Surgery completed Not Available [facility] 04/10/2022 03:14:37 Tonsillectomy completed Not Available [facility] 04/10/2022 03:14:37 Knee Surgery completed Not Available [facility] 04/10/2022 03:14:37 Cataract Surgery completed Not Available [facility] 04/10/2022 03:14:37 Hernia Repair completed Not Available [facility] 04/10/2022 03:14:37 THRESHING OPERATOR Surgery completed Not Available [facility] 04/10/2022 03:14:37 other completed Not Available [facility] 04/10/2022 03:14:37 Imaging Results Imaging Date Name Status LastModified by Organiz ation Details LastModified Time 06/24/2023 XR, hip + pelvis, bilateral, 3 or 4 view completed [email or web address] [facility] (Imaging) [address] [place], [address], 07/09/2023 15:01:58 06/24/2023 XR, hip, bilateral completed [email or web address] [facility] [address] [place], [address], 07/09/2023 15:01:58 06/24/2023 SI joints [email or web address] completed [email or web address] [facility] (Imaging) [address] [place], [address], 07/09/2023 15:01:59 06/24/2023 XR, lumbosacral spine, 2 or 3 view completed [email or web address] [facility] (Imaging) [address] [place], [address], 07/09/2023 15:01:59 06/24/2023 XR, sacroiliac joint(s) completed [email or web address] [facility] [address] [place], [address], 07/09/2023 15:02:00 06/24/2023 XR, lumbosacral spine, 2 or 3 view completed [facility] [address] [place], [address], 10/22/2023 10:35:09 02/02/2024 US, abdomen completed [email or web address] [facility] [address] [place], [address], 02/05/2024 09:38:20 03/10/2024 imaging/diagnos tic result active [facility] [address] [address], [place], [address], 03/10/2024 19:02:45 04/12/2024 imaging/diagnos tic result active [facility] [address] [facility] [address], [place], [address], 04/19/2024 19:45:25 04/16/2024 imaging/diagnos tic result active [facility] [address] [facility], [place], [address], 04/19/2024 19:48:00 Procedure Notes None recorded. Medical Equipment None [...] 75 mg capsule,e xtended release 24 hr TAKE 1 CAPSULE BY MOUTH EVERY DAY active Not Available [...] Available Not Available No t Available OneTouch Ultra Test strips USE TO TEST ONCE DAILY AND NEEDED 03/13 completed Not Available Not Available Not Available Kenalog 10 mg/mL suspensio n for injection Take 20 mg by injectio n route. 12/02 completed [facility]: 0003-049 05-30 Not Available Not Available Not Available benzonata [...] Not Available No t Available cephalexi n 500 mg tablet Take 1 [...] tablet TAKE 1/2 TABLET BY MOUTH DAILY 03/31 completed Not Available Not Available Not Available hydrochlo rothiazid e 25 mg tablet [...] hr TAKE 1 TABLET BY MOUTH DAILY 03/31 completed Not Available Not Available Not Available ergocalci ferol (vitamin D2) 1,250 mcg [...] Avai lable olmesarta n 5 mg tablet Take 1 tablet every day by oral route for 30 days. active Not Available Not Available No t Available enoxapari n 30 mg/0.3 mL subcutane [...] completed [facility]: 0409-427 6- Not Available Not Available Not Available lidocaine [...] 12/02 completed [facility] [address] 4- Not Available Not Available Not Available [...] Available Not Available Not Available Fluzone High-Dose (PF) 180 mcg/0.5 mL intramusc ular syringe active Not Available Not Available Not Available Fluzone High-Dose 3450-5621 (PF) 180 mcg/0.5 mL intramusc ular syringe [...] Available Not Available Not Available Fluzone High-Dose (PF) 180 mcg/0.5 mL [...] Updated DateTime 4 165.1 cm 34.9 kg/m2 62844.4 g 97.6 [degF] 78 /min 128 mm[Hg] 74 mm[Hg] RAMÓN Hsieh Ned [place] [facility] 4 15:37:30 Date Recorded Body height Body mass index (BMI) Body weight Body temperature Heart rate Systolic blood pressure Diastolic blood pressure Provider Name and Address Organization Details Last Updated DateTime 4 165.1 cm 35.8 kg/m2 90657.3 6 g 97.5 [degF] 78 /min 114 mm[Hg] 60 mm[Hg] RAMÓN Hsieh Ned [place] [facility] 4 10:41:05 Date Recorded Pain severity - 0-10 verbal numeric rating [Score] - Reported Provider Name and Address Organization Details Last Updated DateTime 08/18/2023 4 [facility] 08/18/2023 11:52:49 Date Recorded Body height Body mass index (BMI) Body weight Body temperature Heart rate Respiratory rate Oxygen saturation Oxygen saturation in Arterial blood by Pulse oximetry Pain severity - 0-10 verbal numeric rating [Score] - Reported Systolic blood pressure Diastolic blood pressure Provider Name and Address Organization Details Last Updated DateTime 4 165.1 cm 36.5 kg/m2 77644.5 3 g 97.5 [degF] 94 /min 18 /min 96 % 96 % 0 152 mm[Hg] 80 mm[Hg] Puneet King LPN [facility] 4 14:44:09 Date Recorded Body height Body mass index (BMI) Body weight Body temperature Heart rate Systolic blood pressure Diastolic blood pressure Provider Name and Address Organization Details Last Updated DateTime 4 165.1 cm 36.8 kg/m2 838976. 91 g 97.6 [degF] 84 /min 118 mm[Hg] 66 mm[Hg] Kristi Flower Zeeshan [facility] 4 11:08:27 Date Recorded Body height Body mass index (BMI) Body weight Body temperature Heart rate Systolic blood pressure Diastolic blood pressure Provider Name and Address Organization Details Last Updated DateTime 5 165.1 cm 36.6 kg/m2 21969.3 2 g 97.5 [degF] 96 /min 126 mm[Hg] 70 mm[Hg] Kristi Flower Zeeshan [facility] 5 14:37:17 Social History Question Answer Notes LastModified by Organization Details LastModified Time Tobacco Smoking Status Former Smoker Not Available [facility] 04/10/2022 03:13:55 Do You Have An Advance Directive? Yes Asked To Bring Copy For Chart MIGRATION.0302 [id number] Information not available 04/10/2022 What Is Your Level Of Alcohol Consumption? None MIGRATION.030 586297 Information not available 04/10/2022 Do You Wear A Helmet When Biking? No Does Not Bike MIGRATION.0301 889698 Information not available 04/10/2022 Are You Blind Or Do You Have Difficulty Seeing? No MIGRATION.0301 853260 Information not available 04/10/2022 Is Blood Transfusion Acceptable In An Emergency? Yes Information not available 08/18/2023 What Is Your Level Of Caffeine Consumption? Occasional MIGRATION.0301 772271 Information not available 04/10/2022 How Much Tobacco Do You Chew? None MIGRATION.0301 272644 Information not available 04/10/2022 In The 14 Days Before Symptom Onset, Have You Had Close Contact With A Laboratory-confi rmed COVID-19 While That Case Was Ill? No MIGRATION.0301 153689 Information not available 04/10/2022 In The 14 Days Before Symptom Onset, Have You Had Close Contact With A Person Who Is Under Investigation For COVID-19 While That Person Was Ill? No MIGRATION.0301 741318 Information not available 04/10/2022 Are You Currently Employed? No Information not available 03/13/2023 Are You Deaf Or Do You Have Serious Difficulty Hearing? No MIGRATION.0301 996203 Information not available 04/10/2022 What Type Of Diet Are You Following? REGULAR MIGRATION.0301 262816 Information not available 04/10/2022 Which Illicit Or Recreational Drugs Have You Used? None MIGRATION.0301 287780 Information not available 04/10/2022 Do You Or Have You Ever Used E-cigarettes Or Vape? Never Used Electronic Cigarettes MIGRATION.030 423140 Information not available 04/10/2022 What Is The Highest Grade Or Level Of School You Have Completed Or The Highest Degree You Have Received? [id number] MIGRATION.0301 209938 Information not available 04/10/2022 Do You Have An Electrostatic Air Filter? No Information not available 03/13/2023 What Is Your Occupation? Retired MIGRATION.0301 982387 Information not available 04/10/2022 How Many Days Of Moderate To Strenuous Exercise, Like A Brisk Walk, Did You Do In The Last 7 Days? 0 [email or web address] Information not available 08/18/2023 Have There Been Any Changes To Your Family Or Social Situation? No [email or web address] Information not available 08/18/2023 What Is The Fluoride Status Of Your Home? Fluoridated MIGRATION.0301 381870 Information not available 04/10/2022 When Did You Quit Smoking? 16+yearssincelastci garette MIGRATION.0301 243359 Information not available 04/10/2022 Are There Any Guns Present In Your Home? Yes MIGRATION.0301 579253 Information not available 04/10/2022 Do You Have A Humidifier? No Information not available 03/13/2023 Do You Use Insect Repellent Routinely? No MIGRATION.0301 866744 Information not available 04/10/2022 Where Do You Live? SingleLevelHouse MIGRATION.0301 857805 Information not available 04/10/2022 Presence Of Domestic Violence No [email or web address] Information not available 08/18/2023 Guns Present In The Home? Yes [email or web address] Information not available 08/18/2023 Are You Able To Care For Yourself? Yes [email or web address] Information not available 08/18/2023 Are You Blind Or Do Yo Have Difficulty Seeing? No [email or web address] Information not available 08/18/2023 Are You Deaf Or Do You Have Serious Difficulty Hearing? No [email or web address] Information not available 08/18/2023 General Stress Level? Moderate [email or web address] Information not available 08/18/2023 Live Alone Of With Others? With Others Information not available 08/18/2023 Do You Have A Medical Power Of Embossing Tool Setter? Yes MIGRATION.0301 139159 Information not available 04/10/2022 Do You Have Moisture Problems In Your Home? No Information not available 03/13/2023 What Was The Date Of Your Most Recent Tobacco Screening? 03/31/2024 [email or web address] Information not available 03/31/2024 Do You Have Any Pets? No MIGRATION.0301 565937 Information not available 04/10/2022 What Is Your Relationship Status? MIGRATION.0301 184299 Information not available 04/10/2022 Do You Use Your Seat Belt Or Car Seat Routinely? Yes MIGRATION.0301 793220 Information not available 04/10/2022 Do You Have Smoke And Carbon Monoxide Detectors In Your Home? Yes MIGRATION.0301 081069 Information not available 04/10/2022 Are You Passively Exposed To Smoke? No MIGRATION.0301 632931 Information not available 04/10/2022 Do You Or Have You Ever Used Smokeless Tobacco? Never Used Smokeless Tobacco MIGRATION.0301 599393 Information not available 04/10/2022 Are There Any Smokers In Your House? No MIGRATION.0301 368887 Information not available 04/10/2022 How Much Tobacco Do You Smoke? No MIGRATION.0301 611471 Information not available 04/10/2022 What Types Of Sporting Activities Do You Participate In? None MIGRATION.0301 208298 Information not available 04/10/2022 Do You Feel Stressed (tense, Restless, Nervous, Or Anxious, Or Unable To Sleep At Night)? SH29103-6 [email or web address] Information not available 08/18/2023 Do You Use Any Illicit Or Recreational Drugs? No MIGRATION.0301 345512 Information not available 04/10/2022 Do You Use Sunscreen Routinely? No MIGRATION.0301 234491 Information not available 04/10/2022 Has Tobacco Cessation Counseling Been Provided? No MIGRATION.0301 261497 Information not available 04/10/2022 How Many Years Have You Smoked Tobacco? -1 Information not available 08/18/2023 Have You Recently Traveled Abroad? No MIGRATION.0301 102597 Information not available 04/10/2022 Do You Have Any Dietary Restrictions? No MIGRATION.0301 726643 Information not available 04/10/2022 Do You Or Have You Ever Used Any Other Forms Of Tobacco Or Nicotine? No MIGRATION.0301 354616 Information not available 04/10/2022 Sex: Female Functional Status Question Answer Note LastModified by Organizat ion Details LastModified Time Do you have difficulty walking or climbing stairs? No MIGRATION.3108316 026 Information not available 04/10/2022 Do you have transportation difficulties? No MIGRATION.9983398 026 Information not available 04/10/2022 Are you able to walk? YESWOREST MIGRATION.1027912 026 Information not available 04/10/2022 Do you have difficulty doing errands alone? No MIGRATION.5202682 026 Information not available 04/10/2022 Are you able to care for yourself? Yes MIGRATION.4357597 026 Information not available 04/10/2022 Do you have difficulty dressing or bathing? No MIGRATION.8808475 026 Information not available 04/10/2022 What is your exercise level? None MIGRATION.6445394 026 Information not available 04/10/2022 Mental Status Question Answer Note LastModified by Organizat ion Details LastModified Time Do you have difficulty concentrating, remembering or making decisions? No MIGRATION.687797177 6 Information not available 04/10/2022 Family History Relationship Description Onset Age of this Age Resolved Age Notes LastModified by Organization Details LastModified Time Father Diabetes mellitus MIGRATION.325 [id number] Not available 04/10/2022 03:14:45 Father Family history [...] available 03/13 12:49:31 Medical History Condition Response BLINDNESS N NERVE DISEASE Y RHEUMATIC FEVER N BLADDER PROBLEMS N KIDNEY STONES N MRSA N OTHER # 1 N [...] Time Influenza, high-dose, quadrivalent, PF 0 completed RAMÓN Hsieh, [facility] 08/13/2023 11:55:32 COVID-19, mRNA, LNP-S, PF, 30 mcg/0.3 mL dose 2 completed Kristi Flower RMZeeshan hernandez, [facility] 08/13/2023 11:55:32 COVID-19, mRNA, LNP-S, PF, 30 mcg/0.3 mL dose 1 completed Kristi Flower RMA null, [facility] 08/13/2023 11:55:32 COVID-19, mRNA, LNP-S, PF, 30 mcg/0.3 mL dose 1 completed Kristi Flower RMA null, [facility] 08/13/2023 11:55:32 COVID-19, mRNA, LNP-S, PF, 30 mcg/0.3 mL dose, mj-sucrose 2 completed Kristi Flower, RMA null, [facility] 08/13/2023 11:55:32 Influenza, high-dose, trivalent, PF 5 completed Kristi Boydham, RMA null, [facility] 08/13/2023 11:55:32 Influenza, high-dose, trivalent, PF 7 completed Kristi Flower, RMA null, [facility] 08/13/2023 11:55:32 Influenza, high-dose, trivalent, PF 6 completed Kristi Flower RMA null, [facility] 08/13/2023 11:55:33 SARS-COV-2 (COVID-19) vaccine, UNSPECIFIED 1 completed Kristi Flower RMA null, [facility] 08/13/2023 11:55:32 SARS-COV-2 (COVID-19) vaccine, UNSPECIFIED 1 completed Kristi Flower RMA null, [facility] 08/13/2023 11:55:32 Influenza, high-dose, trivalent, PF 9 completed Kristi Flower, RMA null, [facility] 08/13/2023 11:55:33 Influenza, high-dose, trivalent, PF 7 completed Kristi Flower RMA null, [facility] 08/13/2023 11:55:32 Influenza, high-dose, trivalent, PF 6 completed Kristi Flower, RMA null, [facility] 08/13/2023 11:55:33 Influenza, high-dose, trivalent, PF 5 completed Kristi Flower, RMA null, [facility] 08/13/2023 11:55:32 Tdap 0 completed Kristi Flower RMA null, [facility] 08/13/2023 11:55:32 Influenza, high-dose, trivalent, PF 0 completed Kristi Flower, RMA null, [facility] 08/13/2023 11:55:33 Influenza, high-dose, trivalent, PF 4 completed Kristi Flower, RMA null, [facility] 08/13/2023 11:55:32 Influenza, high-dose, trivalent, PF 3 completed Kristi Flower, RMA null, [facility] 08/13/2023 11:55:32 Influenza, high-dose, quadrivalent, PF 2 completed Not Available [facility] 07/29/2022 09:34:24 Influenza, high-dose, quadrivalent, PF 1 completed Not Available [facility] 07/29/2022 09:34:24 pneumococcal polysaccharide PPV23 9 completed Not Available [facility] 07/29/2022 09:34:24 Influenza, high-dose, trivalent, PF 8 completed Not Available [facility] 07/29/2022 09:34:24 Pneumococcal conjugate PCV 13 8 completed Not Available [facility] 07/29/2022 09:34:24 Influenza, high-dose, quadrivalent, PF 3 completed Aditya Joyce MD [address] [place] [address], [address], [facility] 12/02/2022 17:56:33 Past Encounters Encounter ID Performer Location Encounter Start Date Encounter Closed Date Diagnosis/Indication Diagnosis SNOMED-CT Code Diagnosis ICD10 Code Diagnosis Note [id number] [facility] [place] [address] 06/19/2020 00:00:00 06/19/2020 14:22:26 [id number] [facility] Tmomy jacinto [address] [place] [address] 06/21/2020 00:00:00 06/21/2020 13:25:17 [id number] [facility] [place] [address] [place] [address] 08/01/2020 00:00:00 08/01/2020 12:57:26 [id number] [facility] [place] [address] [place] [address] 08/29/2020 00:00:00 08/29/2020 16:03:30 [id number] [facility] [place] [address] , [place] [address] 10/23/2020 00:00:00 10/23/2020 14:29:56 [id number] [facility] [place] [address] [place] [address] 11/02/2020 00:00:00 11/02/2020 17:24:59 [id number] [facility] [place] [address] [place] [address] 04/02/2021 00:00:00 04/02/2021 11:59:31 [id number] [facility] [place] [address] [place] [address] 05/22/2021 00:00:00 05/22/2021 15:53:36 [id number] [facility] [place] [address] [place] [address] 06/19/2021 00:00:00 06/19/2021 15:10:11 [id number] [facility] [place] [address] [place] [address] 07/25/2021 00:00:00 07/25/2021 16:57:22 [id number] [facility] [place] [address] [place] [address] 08/21/2021 00:00:00 08/21/2021 14:35:56 [id number] [facility] [place] [address] [place] [address] 09/17/2021 00:00:00 09/17/2021 10:29:45 [id number] [facility] [place] [address] [place] [address] 11/01/2021 00:00:00 11/04/2021 16:36:10 [id number] [facility] [place] [address] [place] [address] y , [place] [address] 11/26/2021 00:00:00 11/26/2021 12:56:05 [id number] [facility] [place] [address] [place] [address] y , [place] [address] 12/05/2021 00:00:00 12/05/2021 12:08:16 [id number] [facility] Susan llaidee [address] [place] [address] [place] [address] 03/27/2022 00:00:00 03/27/2022 17:14:53 [id number] Aditya lancaster MD [facility] [place] [address] [place] [address] [place] [address] 07/29/2022 11:49:50 07/29/2022 12:58:47 Type 2 diabetes mellitus without complication 256473683 E11.9 On metformin ER 500mg bidOn ozempic, does well denies any MCT, MEN2 or pancreatic issuesGet labs Does well Needs to see her eye Does see Dr Long on 11/02/2020 Screening - NAD 72293302 3 Z13.9 C-scope: 02/22/2014 : Dr Da [...] his understand ing of the above Hyperlipidemia 66745535 E78.5 On rosuvastat in 20mg daily Get labs Hypothyroidism 13770881 E03.9 On levothyrox ine 200mcgs dailyDoes wellRepeat the labs Restless legs 98371080 G 25.81 Not on requip now On tizanidine 4mg dailyDoes well Gastroesop hageal reflux disease without esophagitis 355336058 K21.9 S/p EGDOn nexium, take as needed only Does well Sinus tachycardia 044268 01 R00.0 s/p Stress test 08/24/2020 : NegS/p ECHO 08/24/2020 On metoprolol ER 25mg dailyOn lisinopril 10mg dailyDoes well Sees [facility] Dr Auguste last OV 09/19/2021 Thrombocyt openic disorder 635873748 D69.[address] Heart Last OV 03/13/2021 , f/u yearly Obstructiv e sleep apnea syndrome 95718200 G47.33 S/p sleep study 12/28/17Is using the CPAP and is very compliant 04/13/2019 : CT Chest: Deysi Butler, no acute intrathora cic process, thyrodi calcificat ions, F/u USOld granulomat os disease Keep apt with 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 Environmental allergy 42 1026394 T78.49XD On proairOn singulair Does well Forgetful 12280304 R41.3 Get labsS/p MRI brain 06/26/2020 May need to see neurology Pain of bi lateral knee joints 0558778913 26829 M25.561 M25.562 S/p jeff TKRsDr Richard 09/17/2021 Cirrhosis of liver 79834 007 K74.60 US Liver 06/26/2020 US liver 07/26/2021 : Nodular margins, cirrhosisG et an apt with GI hepatology Dr Roberts also, has seen Anastasia Francisco in 01/2021 US liver 03/13/2022 , see case Moderate r ecurrent major depression 06596268 F33.1 On venlafaxin e ER 75mgs dailyDoes wellNot suicidal or homicidalD eclines any referral to psychiatry Can renew when needed Essential hypertension 06202609 I10 On lisinopril 5mg will cut this in half 07/29/2022 , as she feels the BP is low, bring BP logs in 2 weeksOn metoprolol ER 25mg daily, may need to adjust this [id number] [employer] [facility], [employer] [facility] [place] [address] [place] [address] 09/11/2022 12:18:43 09/11/2022 14:57:32 Obstructive sleep apnea syndrome 98188265 G47.33 Split night study 12/28/17 with AHI [...] at least 4 hours prior to bedtime. [id number] ANTWAN Beckham [facility] [place] [address] [place] [address] 09/17/2022 14:48:10 09/17/2022 15:42:57 Pain of bilateral knee joints 0923411305 32359 M25.561 M25.562 History of bilateral total knee replacement [id number] 403044 Z96.653 [id number] Dima Rmaos MD [facility] [place] [address] [place] [address] 10/01/2022 14:48:35 10/01/2022 15:20:37 Pain of right shoulder joint 7990198602 9470567 M25.511 Osteoarthr 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 9757574273 68583 M19.696 [id number] Jewel loera MD [facility] General Surgery [address] [facility] [address] [place] [address] 11/05/2022 10:25:40 11/05/2022 11:59:15 [facility] [id number] R59.1 [id number] Aditya lancaster MD [facility] Internal Med [place] [address] , [place] [address] 12/02/2022 11:55:51 12/02/2022 12:52:29 Screening - NAD 440887478 Z13.9 C-scope: 02/22/2014 : Dr Da Silva [...] Type 2 ofe betes mellitus without complication 895341493 E11.9 On metformin ER 500mg bidOn ozempic, does well denies any MCT, MEN2 or pancreatic issuesGet labs Does well Needs to see her eye MD Does see Dr Long on 11/02/2020 Hyperlipidemia 56773821 E78.5 On rosuvastat in 20mg daily Get labs Hypothyroidism 21556337 E03.9 On levothyrox ine 200mcgs daily,will decrease to 150mcgs dailyDoes wellRepeat the labs Restless legs 55484036 G 25.81 Not on requip now On tizanidine 4mg dailyDoes well Gastroesop hageal reflux disease without esophagitis 239982972 K21.9 S/p EGDOn nexium, take as needed only Does well Sinus tachycardia 496349 01 R00.0 s/p Stress test 08/24/2020 : NegS/p ECHO 08/24/2020 On metoprolol ER 25mg dailyOn lisinopril 5mg dailyDoes well Sees [facility] Dr Auguste last OV 09/19/2021 Thrombocyt openic disorder 832244676 D69.[address] Heart Last OV 03/13/2021 , f/u yearlyLast OV 03/19/2022 , f/u yearly Obstructiv e sleep apnea syndrome 24802029 G47.33 S/p sleep study 12/28/17Is using the CPAP and is very compliant 04/13/2019 : CT Chest: Deysi Butler, no acute intrathora cic process, thyrodi calcificat ions, F/u USOld granulomat os disease Keep apt with [employer] 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 [employer] 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 09/11/2022 , next 04/22/2023 Environmental allergy 42 1376913 T78.49XD On proairOn singulair Does well Forgetful 63290446 R41.3 Get labs S/p MRI brain 06/26/2020 May need to see neurology Pain of bi lateral knee joints 1259553055 56740 M25.561 M25.562 S/p jeff TKRs Dr Ramos 09/17/2021 Cirrhosis of liver 28879 007 K74.60 US Liver 06/26/2020 US liver 07/26/2021 : Nodular margins, cirrhosisG et an apt with GI hepatology Dr Roberts also, has seen Anastasia Francisco in 01/2021 US liver 03/13/2022 , see case Moderate r ecurrent major depression 40852062 F33.1 On venlafaxin e ER 75mgs dailyDoes wellNot suicidal or homicidalD eclines any referral to psychiatry Can renew when needed Essential hypertension 93313530 I10 On lisinopril 5mgOn metoprolol ER 25mg daily, may need to adjust this COVID-19 508299906 U07.1 +ve 10/29/2022 , see case 10/29/2022 Pain of ri ght shoulder joint 1084729554 0688145 M25.511 Dr Ramos 10/01/2022 , s/p kenalog Chronic ki dney disease 502993272 N18.[address] Banks IJ Chronic neck pain 133155 7243 107 M54.2 Get Xray C-spineIf not better, get PT and may need to see IPC Administra tion of influenza vaccine 71039308 Z23 [id number] Fran Warner MD [facility] [address], [facility] [address] [place] [address] 03/13/2023 11:59:32 03/14/2023 15:38:10 Obstructive sleep apnea syndrome 83998478 G47.33 [id number] Aditya lancaster MD [facility] Tommy jacinto [address] [place] [address] , [facility] [place] [address] 03/31/2023 11:47:38 03/31/2023 12:49:59 Screening - NAD 838134566 Z13.9 C-scope: 02/22/2014 : Dr Da Silva [...] Type 2 ofe betes mellitus without complication 070516503 E11.9 On metformin ER 500mg bidOn ozempic, does well denies any MCT, MEN2 or pancreatic issuesGet labs Does well Needs to see her eye MD Does see Dr Long on 11/02/2020 Hyperlipidemia 07978873 E78.5 On rosuvastat in 20mg daily Get labs Hypothyroidism 06085774 E03.9 On levothyrox ine 100mcgs dailyDoes wellRepeat the labsGet US thyroid Restless legs 78429585 G 25.81 Not on requip now On tizanidine 4mg dailyDoes well Gastroesop hageal reflux disease without esophagitis 305350389 K21.9 S/p EGDOn nexium, take as needed only Does well Sinus tachycardia 063063 01 R00.0 s/p Stress test 08/24/2020 : NegS/p ECHO 08/24/2020 On metoprolol ER 25mg dailyOn lisinopril 5mg dailyDoes well Sees [facility] Dr Auguste last OV 09/19/2021 Thrombocyt openic disorder 331736422 D69.[address] Heart Last OV 03/13/2021 , f/u yearlyLast OV 03/19/2022 , f/u yearly Obstructiv e sleep apnea syndrome 77130525 G47.33 S/p sleep study 12/28/17Is using the CPAP and is very compliant 04/13/2019 : CT Chest: Deysi Butler, no acute intrathora cic process, thyrodi calcificat ions, F/u USOld granulomat os disease Keep apt with [employer] 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 [employer] 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 09/11/2022 , next 04/22/2023 Environmental allergy 42 6450028 T78.49XD On proairOn singulair Does well Forgetful 44643601 R41.3 Get labs S/p MRI brain 06/26/2020 May need to see neurology Pain of bi lateral knee joints 3834709460 91601 M25.561 M25.562 S/p jeff TKRs Dr Ramos 09/17/2021 Cirrhosis of liver 19825 007 K74.60 US Liver 06/26/2020 US liver 07/26/2021 : Nodular margins, cirrhosisG et an apt with GI hepatology Dr Roberts also, has seen Anastasia Francisco in 01/2021 Anastasia Francisco SILK SCREEN PROCESSOR 02/13/2023 , f/u in 6 monthsUS liver 03/13/2022 , see case Moderate r ecurrent major depression 62542656 F33.1 On venlafaxin e ER 75mgs dailyDoes wellNot suicidal or homicidalD eclines any referral to psychiatry Can renew when needed Essential hypertension 19800762 I10 On lisinopril 5mgOn metoprolol ER 25mg daily, may need to adjust this COVID-19 779729568 U07.1 +ve 10/29/2022 , see case 10/29/2022 Pain of ri ght shoulder joint 3956373142 7145435 M25.511 Dr Ramos 10/01/2022 , s/p kenalog Chronic ki dney disease 628662956 N18.[address] Banks IJ Chronic neck pain 893076 1369 107 M54.2 Get Xray C-spineIf not better, get PT and may need to see IPC Xray C-spine 12/02/2022 Screening for malignant neoplasm of colon 937585447 Z12.11 Pruritic rash 62051190 L 28.2 In the groin area, red and itchy, not examined today, no rash at present, would like a refill of nystatin-t riamcinolo ne [id number] Fran Warner MD [facility] [address] [address] 06/12/2023 12:02:56 06/13/2023 09:12:13 Obstructive sleep apnea syndrome 38886478 G47.33 [id number] Aditya lancaster MD [facility] [address] [place] [address], [place] [address] 06/25/2023 15:20:32 06/25/2023 16:19:01 Screening - NAD 540929520 Z13.9 C-scope: 02/22/2014 : Dr Da Silva [...] Type 2 ofe betes mellitus without complication 176644649 E11.9 On metformin ER 500mg bidOn ozempic, does well denies any MCT, MEN2 or pancreatic issuesGet labs Does well Needs to see her eye MD Does see Dr Long on 11/02/2020 Hyperlipidemia 50146989 E78.5 On rosuvastat in 20mg daily Get labs Hypothyroidism 07899117 E03.9 On levothyrox ine 100mcgs dailyDoes wellRepeat the labsGet US thyroid Restless legs 43440567 G 25.81 Not on requip now On tizanidine 4mg dailyDoes well Gastroesop hageal reflux disease without esophagitis 661011196 K21.9 S/p EGDOn nexium, take as needed only Does well Sinus tachycardia 947121 01 R00.0 s/p Stress test 08/24/2020 : NegS/p ECHO 08/24/2020 On metoprolol ER 25mg dailyOn lisinopril 5mg dailyDoes well Sees [facility] Dr Auguste last OV 09/19/2021 Thrombocyt openic disorder 306131515 D69.[address] Heart Last OV 03/13/2021 , f/u yearlyLast OV 03/19/2022 , f/u yearly Obstructiv e sleep apnea syndrome 77350821 G47.33 S/p sleep study 12/28/17Is using the CPAP and is very compliant 04/13/2019 : CT Chest: Deysi Butler, no acute intrathora cic process, thyrodi calcificat ions, F/u USOld granulomat os disease Keep apt with [employer] 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 [employer] 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 09/11/2022 , next 04/22/2023 Environmental allergy 42 8708978 T78.49XD On proairOn singulair Does well Forgetful 97982812 R41.3 Get labs S/p MRI brain 06/26/2020 May need to see neurology Pain of bi lateral knee joints 4616674369 07693 M25.561 M25.562 S/p jeff TKRs Dr Ramos 09/17/2021 Cirrhosis of liver 92063 007 K74.60 US Liver 06/26/2020 US liver 07/26/2021 : Nodular margins, cirrhosisG et an apt with GI hepatology Dr Roberts also, has seen Anastasia Francisco in 01/2021 Anastasia Francisco SILK SCREEN PROCESSOR 02/13/2023 , f/u in 6 monthsUS liver 03/13/2022 , see case Moderate r ecurrent major depression 96595164 F33.1 On venlafaxin e ER 75mgs dailyDoes wellNot suicidal or homicidalD eclines any referral to psychiatry Can renew when needed Essential hypertension 35738886 I10 On lisinopril 5mgOn metoprolol ER 25mg daily, may need to adjust this COVID-19 157824971 U07.1 +ve 10/29/2022 , see case 10/29/2022 Pain of ri ght shoulder joint 1594248009 1239139 M25.511 Dr Ramos 10/01/2022 , s/p kenalog Chronic ki dney disease 271592524 N18.[address] Banks IJ Chronic neck pain 216489 1871 107 M54.2 Get Xray C-spineIf not better, get PT and may need to see IPC Xray C-spine 12/02/2022 Screening for malignant neoplasm of colon 201774455 Z12.11 Pruritic rash 02353974 L 28.2 In the groin area, red and itchy, not examined today, no rash at present, would like a refill of nystatin-t riamcinolo ne Low back pain 517450684 M54.50 Xrays noted 06/24/2023 Already on the diclofenac given by Kobe Madrigal on flexerillN eeds another apt with ortho Osteoarthr itis of bilateral hip joints 0970136785 98172 M16.0 Has seen Kobe Madrigal another referral [id number] Aditya lancaster MD [facility] Tommy jacinto [address] [facility] [place] [address] 08/18/2023 10:28:33 08/18/2023 11:26:37 Adult health examination 527891362 Z00.00 Screening for disorder 481723449 Z13.9 Screening - NAD 24278309 3 Z13.9 C-scope: 02/22/2014 : Dr Da [...] Type 2 ofe betes mellitus without complication 184560371 E11.9 Not taking metformin ER 500mg bidOn ozempic, does well denies any MCT, MEN2 or pancreatic issuesGet labs Does wellNeeds to see her eye MD Does see Dr Long on 11/02/[address] Faustinw ill refer toDr Karthik Hyperlipidemia 07491653 E78.5 On rosuvastat in 20mg dailyGet labs Hypothyroidism 11420501 E03.9 On levothyrox ine 100mcgs dailyDoes wellRepeat the labsGet US thyroid Restless legs 66361402 G 25.81 Not on requip now On tizanidine 4mg dailyDoes well Gastroesop hageal reflux disease without esophagitis 383882146 K21.9 S/p EGDOn nexium, take as needed only Does well Sinus tachycardia 158857 01 R00.0 s/p Stress test 08/24/2020 : NegS/p ECHO 08/24/2020 On metoprolol ER 25mg dailyOn lisinopril 5mg dailyDoes well Sees [facility] Dr Auguste last OV 09/19/2021 Thrombocyt openic disorder 385056334 D69.[address] Heart Last OV 03/13/2021 , f/u yearlyLast OV 03/19/2022 , f/u yearly Obstructiv e sleep apnea syndrome 80620246 G47.33 S/p sleep study 12/28/17Is using the CPAP and is very compliant 04/13/2019 : CT Chest: Deysi Butler, no acute intrathora cic process, thyrodi calcificat ions, F/u USOld granulomat os disease Keep apt with [employer] He NP 08/21/2021 America He NP 09/11/2022 Dr Warner last 06/12/2023 , next 202 4 Environmental allergy 42 9069813 T78.49XD On proairOn singulair Does well Forgetful 96530906 R41.3 Get labs S/p MRI brain 06/26/2020 May need to see neurology Pain of bi lateral knee joints 2681708815 62749 M25.561 M25.562 S/p jeff TKRs Dr Ramos 09/17/2021 Cirrhosis of liver 10715 007 K74.60 US Liver 06/26/2020 US liver 07/26/2021 : Nodular margins, cirrhosisG et an apt with GI hepatology Dr Roberts also, has seen Anastasia Maryam in 01/2021 Anastasia Oksana SILK SCREEN PROCESSOR 02/13/2023 , f/u in 6 monthsUS liver 03/13/2022 , see case Moderate r ecurrent major depression 74335045 F33.1 On venlafaxin e ER 75mgs dailyDoes wellNot suicidal or homicidalD eclines any referral to psychiatry Can renew when needed Essential hypertension 02710895 I10 On lisinopril 5mgOn metoprolol ER 25mg daily, may need to adjust this COVID-19 423205398 U07.1 +ve 10/29/2022 , see case 10/29/2022 Pain of ri ght shoulder joint 6635127708 6977157 M25.511 Dr Ramos 10/01/2022 , s/p kenalog Chronic ki dney disease 864540021 N18.[address] Banks IJ Chronic neck pain 545732 4745 107 M54.2 Get Xray C-spineIf not better, get PT and may need to see IPC Xray C-spine 12/02/2022 Screening for malignant neoplasm of colon 229722502 Z12.11 Pruritic rash 50592237 L 28.2 In the groin area, red and itchy, not examined today, no rash at present, would like a refill of nystatin-t riamcinolo ne Low back pain 022612351 M54.50 Xrays noted 06/24/2023 Already on the diclofenac given by Kobe Madrigal on flexerillN eeds another apt with ortho Osteoarthr itis of bilateral hip joints 8600106412 32043 M16.0 Has seen Kobe Madrigal another referral Screening for osteoporosis 183112856 Z13.820 Vitamin D deficiency 347 16714 E55.9 [id number] Aditya lancaster MD [facility] Tommy jacinto [address] [facility] [place] [address] 11/24/2023 14:36:02 11/24/2023 15:26:53 Screening - NAD 467155109 Z13.9 C-scope: 02/22/2014 : Dr Da SilvaC-sco [...] Type 2 ofe betes mellitus without complication 199595750 E11.9 Not taking metformin ER 500mg bidOn ozempic, does well denies any MCT, MEN2 or pancreatic issues, will increase that ozempic to 1mg weeklyGet labs Does wellNeeds to see her eye MD Does see Dr Long on 11/02/2020 Does not want heraclio Mast ill refer to Dr Angeles Hyperlipidemia 35332411 E78.5 On rosuvastat in 20mg dailyGet labs Hypothyroidism 54844384 E03.9 On levothyrox ine 100mcgs dailyDoes wellRepeat the labsGet US thyroid Restless legs 67950666 G 25.81 Not on requip now On tizanidine 4mg dailyDoes well Gastroesop hageal reflux disease without esophagitis 914273719 K21.9 S/p EGDOn nexium, take as needed only Does well Sinus tachycardia 994799 01 R00.0 s/p Stress test 08/24/2020 : NegS/p ECHO 08/24/2020 On metoprolol ER 25mg dailyOn lisinopril 5mg dailyDoes well Sees [facility] Dr Auguste last OV 09/19/2021 Thrombocyt openic disorder 853803009 D69.[address] Heart Last OV 03/13/2021 , f/u yearlyLast OV 03/19/2022 , f/u yearlyOV 04/23/2023 : F/u yearly Obstructiv e sleep apnea syndrome 70629605 G47.33 S/p sleep study 12/28/17Is using the CPAP and is very compliant 04/13/2019 : CT Chest: Deysi Butler, no acute intrathora cic process, thyrodi calcificat ions, F/u USOld granulomat os disease Keep apt with [employer] 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 Ameriac 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 09/11/2022 Dr Warner last 06/12/2023 , next 12/25/2023 Environmental allergy 42 4773978 T78.49XD On proairOn singulair Does well Forgetful 33722616 R41.3 Get labsS/p MRI brain 06/26/2020 May need to see neurology Pain of bi lateral knee joints 1399428364 35427 M25.561 M25.562 S/p jeff TKRs Dr Ramos 09/17/2021 Cirrhosis of liver 75307 007 K74.60 US Liver 06/26/2020 US liver 07/26/2021 : Nodular margins, cirrhosisG et an apt with GI hepatology Dr Roberts also, has seen Anastasia Francisco in 01/2021 Anastasia Gandhi SILK SCREEN PROCESSOR 02/13/2023 , f/u in 6 monthsUS liver 03/13/2022 , see case Moderate r ecurrent major depression 32444673 F33.1 On venlafaxin e ER 75mgs dailyDoes wellNot suicidal or homicidalD eclines any referral to psychiatry Can renew when needed Essential hypertension 98102347 I10 On lisinopril 5mgOn metoprolol ER 25mg daily, may need to adjust this COVID-19 808530509 U07.1 +ve 10/29/2022 , see case 10/29/2022 Pain of ri ght shoulder joint 8360402298 1001914 M25.511 Dr Ramos 10/01/2022 , s/p kenalog Chronic ki dney disease 377209817 N18.[address] Darren MAY Chronic neck pain 504545 9330 107 M54.2 Get Xray C-spineIf not better, get PT and may need to see IPC Xray C-spine 12/02/2022 Screening for malignant neoplasm of colon 910770930 Z12.11 Pruritic rash 76417186 L 28.2 In the groin area, red and itchy, not examined today, no rash at present, would like a refill of nystatin-t anastacia ne Low back pain 173596038 M54.50 Xrays noted 06/24/2023 Already on the diclofenac given by Kobe Madrigal on flexerillN eeds another apt with ortho Osteoarthr itis of bilateral hip joints 2037679797 02323 M16.0 Has seen Kobe Madrigal another referral Screening for osteoporosis 408197541 Z13.820 Vitamin D deficiency 347 94159 E55.9 [id number] Aditya lancaster MD [facility] [address] [place] [address] 12/29/2023 10:48:52 12/29/2023 12:31:05 Screening - NAD 574057800 Z13.9 C-scope: 02/22/2014 : Dr Da SilvaC-sco [...] Type 2 ofe betes mellitus without complication 069678162 E11.9 Not taking metformin ER 500mg bidOn ozempic, does well denies any MCT, MEN2 or pancreatic issues, will increase that ozempic to 1mg weeklyGet labs Does wellNeeds to see her eye MD Does see Dr Long on 11/02/2020 Does not want heraclio Mast ill refer to Dr Angeles Hyperlipidemia 54440514 E78.5 On rosuvastat in 20mg dailyGet labs Hypothyroidism 94582220 E03.9 On levothyrox ine 100mcgs dailyDoes wellRepeat the labsGet US thyroid Restless legs 17952918 G 25.81 Not on requip now On tizanidine 4mg dailyDoes well Gastroesop hageal reflux disease without esophagitis 961785221 K21.9 S/p EGDOn nexium, take as needed only Does well Sinus tachycardia 626974 01 R00.0 s/p Stress test 08/24/2020 : NegS/p ECHO 08/24/2020 On metoprolol ER 25mg dailyOn lisinopril 5mg dailyDoes well Sees [facility] Dr Auguste last OV 09/19/2021 Thrombocyt openic disorder 103538629 D69.[address] Heart Last OV 03/13/2021 , f/u yearlyLast OV 03/19/2022 , f/u yearlyOV 04/23/2023 : F/u yearly Obstructiv e sleep apnea syndrome 57764104 G47.33 S/p sleep study 12/28/17Is using the CPAP and is very compliant 04/13/2019 : CT Chest: Deysi Butler, no acute intrathora cic process, thyrodi calcificat ions, F/u USOld granulomat os disease Keep apt with [employer] He NP 08/21/2021 America He NP 09/11/2022 Dr Warner last 06/12/2023 , next 12/25/2023 Environmental allergy 42 6065671 T78.49XD On proairOn singulair Does well Forgetful 07990124 R41.3 Get labsS/p MRI brain 06/26/2020 May need to see neurology Pain of bi lateral knee joints 0627065779 52796 M25.561 M25.562 S/p jeff TKRs Dr Ramos 09/17/2021 Cirrhosis of liver 25501 007 K74.60 US Liver 06/26/2020 US liver 07/26/2021 : Nodular margins, cirrhosisG et an apt with GI hepatology Dr Roberts also, has seen Anastasia Francisco in 01/2021 Anastasia Gandhi SILK SCREEN PROCESSOR 02/13/2023 , f/u in 6 monthsUS liver 03/13/2022 , see case Moderate r ecurrent major depression 92540730 F33.1 On venlafaxin e ER 75mgs dailyDoes wellNot suicidal or homicidalD eclines any referral to psychiatry Can renew when needed Essential hypertension 53384848 I10 On lisinopril 5mgOn metoprolol ER 25mg daily, may need to adjust this COVID-19 527065614 U07.1 +ve 10/29/2022 , see case 10/29/2022 Pain of ri ght shoulder joint 9495109962 8502845 M25.511 Dr Ramos 10/01/2022 , s/p kenalog Chronic ki dney disease 704246555 N18.[address] Darren MAY Chronic neck pain 477510 4835 107 M54.2 Get Xray C-spineIf not better, get PT and may need to see IPC Xray C-spine 12/02/2022 Screening for malignant neoplasm of colon 908568848 Z12.11 Pruritic rash 14579382 L 28.2 In the groin area, red and itchy, not examined today, no rash at present, would like a refill of nystatin-t riamcinolo ne Low back pain 290266841 M54.50 Xrays noted 06/24/2023 Already on the diclofenac given by Kobe Madrigal on flexerillN eeds another apt with ortho Osteoarthr itis of bilateral hip joints 3853228521 08349 M16.0 Has seen Kobe Madrigal another referral Screening for osteoporosis 717668830 Z13.820 Vitamin D deficiency 347 69432 E55.9 Renewal of prescription 925114107 Z76.0 [id number] Aditya lancaster MD [facility] [address] [place] [address] 03/31/2024 14:20:58 03/31/2024 15:22:27 Screening - NAD 126203307 Z13.9 C-scope: 02/22/2014 : Dr Da Silva-sco pe: 07/15/2019 : Dr Da Silva Mammogram: 12/04/17: Neg, 01/14/18: Neg 9: Neg 021: Neg [...] and new COVID 19 vaccine RTC in 3 monthDo labsER if worseshe did verbalize his understand ing of the above Type 2 ofe betes mellitus without complication 073937755 E11.9 Not taking metformin ER 500mg bidOn ozempic, does well denies any MCT, MEN2 or pancreatic issues, ozempic to 1mg weekly, can increase to 1.7mg weeklyGet labs Does wellNeeds to see her eye MD Does see Dr Long on 11/02/2020 Does not want heraclio Mast ill refer to Dr Angeles Hyperlipidemia 15446699 E78.5 On rosuvastat in 20mg dailyGet labs Hypothyroidism 81061484 E03.9 On levothyrox ine 100mcgs dailyDoes wellRepeat the labsGet US thyroid Restless legs 82662894 G 25.81 Not on requip now On tizanidine 4mg dailyDoes well Gastroesop hageal reflux disease without esophagitis 579218607 K21.9 S/p EGDOn nexium, take as needed only Does well Sinus tachycardia 122168 01 R00.0 s/p Stress test 08/24/2020 : NegS/p ECHO 08/24/2020 Not on metoprolol ER 25mg dailyNot on lisinopril 5mg dailyOn olmesartan 5mg daily Dr Dickson well Sees [facility] Dr Auguste Thrombocyt openic disorder 824983215 D69.[address] Heart Last OV 03/13/2021 , f/u yearlyLast OV 03/19/2022 , f/u yearlyOV 04/23/2023 : F/u yearly Obstructiv e sleep apnea syndrome 24214643 G47.33 S/p sleep study 12/28/17Is using the CPAP and is very compliant 04/13/2019 : CT Chest: Deysi Butler, no acute intrathora cic process, thyrodi calcificat ions, F/u USOld granulomat os disease Keep apt with [employer] 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 America 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 09/11/2022 Dr Warner Environmental allergy 42 5044446 T78.49XD On proairOn singulair Does well Forgetful 22233703 R41.3 Get labsS/p MRI brain 06/26/2020 May need to see neurology Pain of bi lateral knee joints 6411619715 13421 M25.561 M25.562 S/p jeff TKRs Dr Ramos 09/17/2021 Cirrhosis of liver 44709 007 K74.60 US Liver 06/26/2020 US liver 07/26/2021 : Nodular margins, cirrhosisG et an apt with GI hepatology Dr Roberts also, has seen Anastasia Francisco in 01/2021 Anastasia Gandhi SILK SCREEN PROCESSOR 02/13/2023 , f/u in 6 monthsUS liver 03/13/2022 , see case Moderate r ecurrent major depression 91333791 F33.1 On venlafaxin e ER 75mgs dailyDoes wellNot suicidal or homicidalD eclines any referral to psychiatry Can renew when needed Essential hypertension 99977174 I10 Off lisinopril 5mgOff metoprolol ER 25mg daily, may need to adjust thisOn olmesartan COVID-19 161250463 U07.1 +ve 10/29/2022 , see case 10/29/2022 Pain of ri ght shoulder joint 1763915149 2641297 M25.511 Dr Ramos 10/01/2022 , s/p kenalog S/p MRI 03/10/2024 Dr Leyva Chronic ki dney disease 641816919 N18.[address] Darren Ying sees Dr Arora Chronic neck pain 274537 6672 107 M54.2 Get Xray C-spineIf not better, get PT and may need to see IPC Xray C-spine 12/02/2022 Screening for malignant neoplasm of colon 499655099 Z12.11 Pruritic rash 99132339 L 28.2 In the groin area, red and itchy, not examined today, no rash at present, would like a refill of nystatin-t riamcinolo ne Low back pain 146150148 M54.50 Xrays noted 06/24/2023 Already on the diclofenac given by Kobe Madrigal on flexerillN eeds another apt with ortho Osteoarthr itis of bilateral hip joints 6617513521 71057 M16.0 Has seen Kobe Mdarigal another referral Screening for osteoporosis 601036243 Z13.820 Vitamin D deficiency 347 09587 E55.9 Health Concerns Section Related Observation LastModified by Organization Detai ls LastModified Time None Recorded Concern Status LastModified by Organization Details LastModified Time None Recorded Advance Directives Directive Y: asked to bring copy for c florez Payers Encounter Date Sequence Insurance Name Policy Number Policy Bush Covered Member ID Bush Member ID Guarantor Name 06/25/2023 1 [employer] (MEDICARE REPLACEMENT PPO) [id number] Mercedes L Zeisset [id number] Mercedes L Zeisset 08/18/2023 1 [employer] (MEDICARE REPLACEMENT PPO) [id number] Mercedes L Zeisset [id number] Mercedes L Zeisset 11/24/2023 1 [employer] (MEDICARE REPLACEMENT PPO) [id number] 1 Mercedes L Zeisset [id number] Mercedes L Zeisset 12/29/2023 1 [employer] (MEDICARE REPLACEMENT PPO) [id number] 1 Mercedes L Zeisset [id number] Mercedes L Zeisset 03/31/2024 1 [employer] (MEDICARE REPLACEMENT PPO) [id number] 1 Mercedes L Zeisset [id number] Mercedes L Zeisset Notes Date Note Type Note Provider Name and Address Organization Details Recorded Time 06/25/2023 text/html Here to darnell Joe Hx:HypothyrodismDepr essionReviewed social family and surgical historyShe is here to discuss above and also to get labs if neededShe feels that she is doing well otherwiseOV 09/19/18:Here for her routine aptShe does have epigastric [...] review theseShe did see Dr Heart the nike athlete and is now to see a hepatologistOV [...] or bladder control Aditya Joyce MD [address] [facility], [facility] [address], [place], [address], [facility] [employer] 06/25/2023 17:50:17 08/18/2023 text/html Here to darnell Joe Hx:HypothyrodismDepr essionReviewed social family and surgical historyShe is here [...] review theseShe did see Dr Heart the nike athlete and is now to see a hepatologistOV 09/21/18:Here for her routine aptShe has some redness in the L lower leg, did have a DVT last use of xarelto was in 05/28No recent labsNo other complaints at this timeOV 10/21/18:Here for her routine aptShe did do labsShe here with her husbandDoing wellOV 01/25/19:Here for her routine aptShe has not done the labs as Joseluise did see the ortho ANTWAN Pelaez for [...] is here for her MWV also Aditya Joyec MD [address] [place] [address] [address], [place], [address], [place] [facility] [employer] 08/18/2023 16:55:21 11/24/2023 text/html Here to darnell Joe Hx:HypothyrodismDepr essionReviewed social family and surgical historyShe is here to discuss above and also to get labs if neededShaidee feels that she is doing well otherwiseOV 10/29/17:Here for her routine aptShe does have epigastric pain, ongoing since the past 3 weeks agoDid take the TUMS and this helpedShaidee did do the labs today in the [...] review theseShe did see Dr Heart the nike athlete and is now to see a hepatologistOV [...] the dose increased Aditya Joyce MD [address], [address], [place], [address], [place] [facility] 11/24/2023 15:28:52 12/29/2023 text/html Here to darnell Joe Hx:HypothyrodismDepr essionReviewed social family and surgical historyShe is here [...] review theseShe did see Dr Heart the nike athlete and is now to see a hepatologistOV 09/21/18:Here for her routine aptShe has some redness in the L lower leg, did have a DVT last use of xarelto was in 05/28No recent labsNo other complaints at this timeOV 10/21/18:Here for her routine aptShe did do labsShe here with her husbandDoing wellOV 01/25/19:Here for her routine aptShe has not done the labs as Joseluise did see the ortho ANTWAN Pelaez for [...] doing well today Aditya Joyce MD [address] [facility], [facility] [address], [place], [address], [facility] [employer] [facility] [employer] 12/29/2023 19:12:55 03/31/2024 text/html Here to darnell Joe Hx:HypothyrodismDepr essionReviewed social family and surgical historyShe is here [...] review theseShe did see Dr Heart the nike athlete and is now to see a hepatologistOV [...] apt, she is doing well today OV 03/31/2024: Here for her f/u apt, she is here with her , does well today, has seen Dr Leyva for the shoulder, she did do the labs Aditya Joyce MD [address] [facility], [address], [place], [address], [facility] [employer] [facility] 03/31/2024 18:29:56 OBGyn Episode No OBEpisode recorded.
--- OUTSIDE RECORDS SUMMARY | 2024-04-27 12:40 | XMS_ITS | Continuity of Care Document ---
Author Organization [facility] Address [address] [place] [address] [address] [place] [address] Phone Care Team Providers Care Television Cable Installer Name Role Phone Jurgen Diallo Unavailable Unavailable Procedures Procedure Date Post-op Follow-up Visit Post-op Follow-up Visit Remove Cataract, Insert Lens Eye Exam, New Patient Echo Exam Of Eye Advance Directives Directive Yes / No Effective Date File Name No Information Encounters Encounter Description Practice Location Reason(s) For Visit Diagnoses Date Provider Providers Copied on Encounter [facility], [address] [place] [address] [address], [place], [place], [id number], tel:[phone] SEC [facility] No Information [address] [place] [address] , [address], [place], [place], [facility], . tel:[phone] Referring Provider: Fernie Byers, [address] [place] [address], [facility]. tel:[phone] [facility], [address] [place] [address] [address], [place], [place], [id number], tel:[phone] [facility] No Information [address] [place] [address] , [address], [place], [place], [facility], [place]. tel:[phone] Referring Provider: Fernie Byers, [address] [place] [address], [facility]. tel:[phone] [facility], [address] [address] [address], [place], [place], [id number], tel:[phone] [facility] No Information [facility] Edward. [address] [facility] , [address], [place], [place], [facility], . tel:[phone] Referring Provider: Fernie Byers, [address] [place] [address], [facility]. tel:[phone] [facility], [address] [address], [place], [place], [id number], tel:[phone] [facility] No Information [facility] [place]. [facility] [facility] , [address], [place], [place], [facility], . tel:[phone] Referring Provider: Fernie Byers, [address] [place] [address], [facility]. tel:[phone] Family History Family Member Type Diagnosis Age [...]
== END 2024-04-27 11:01 | disposition home or self-care (01) ==
LOC: ANHLAB 11:03
PROVIDERS: PCP Internal Medicine; Visit Provider Internal Medicine Hematology & Oncology
DX: D69.59 Other secondary thrombocytopenia (principal)
CPT/HCPCS: 36415; 80047; 80053; 85025

== ENCOUNTER 2024-06-14 11:23 | Emergency (ER) | payer MEDICARE, SELFPAY ==
--- NOTE | ~2024-06-14 | XR_ITS ---
XR hip RT min 3V w AP pelvis 06/14/2024 13:55 Indication: Right hip pain Procedure: 3 views right hip including AP pelvis Comparison: No prior studies for comparison. Findings: Moderate osteoarthritis of the hips. Pelvic rings intact. No fracture or traumatic malalign ment. There is lumbar spondylosis. Sacral foramen are symmetric. Impression: 1: No acute fracture. Reviewed, dictated and finalized at location A. Impression: 1: No acute fracture.
[2024-06-14 11:25] VITALS: BP 154/72; PULSE 98; RESP 15; TEMP 36.4; O2SAT 99
--- OUTSIDE RECORDS SUMMARY | 2024-06-14 12:16 | XMS_ITS | Clinical Summary ---
Author Organization [facility] Address [address] [place] [address] Care Team Providers Care Sales Planning Manager Name Role Phone Soy Joyce MD Primary Care Provider [phone] Medications olmesartan (BENICAR) 5 MG tablet Take 1 tablet (5 mg total) by mouth 1 (one) time each day 90 tablet 1 12/30/2023 Active Encounters Date Type Department Care Team Description 05/25/2024 Office Communication [facility], [facility] [address] [facility] [address] [place] [phone] Antwan Arora DO 04/02/2024 Documentation Only [facility], [address] [address] Antwan Arora DO 04/02/2024 Documentation Only [address] [address] Antwan Arora DO from Last [...] Comments Blood Pressure 110/60 03/02/2024 3:49 PM SKILLED NURSING FACILITIES PROFESSIONAL Pulse 68 03/02/2024 3:49 PM SKILLED NURSING FACILITIES PROFESSIONAL Temperature 36.7 C (98 F) 03/02/2024 3:49 PM SKILLED NURSING FACILITIES PROFESSIONAL Respiratory Rate 18 03/02/2024 3:49 PM SKILLED NURSING FACILITIES PROFESSIONAL Oxygen Saturation 97% 03/02/2024 3:49 PM SKILLED NURSING FACILITIES PROFESSIONAL Inhaled Oxygen Concentration - - Weight 99.3 kg (219 lb) 03/02/2024 3:49 PM SKILLED NURSING FACILITIES PROFESSIONAL Height - - Body Mass Index - - Plan of Treatment Upcoming Encounters Date Type Department Care Team (Late st Contact Info) Description 08/31/2024 12:30 PM CDT Office Visit [facility], [facility] [address] [facility] [address] [place] [address] Antwan Arora DO [address] [facility] [address] [place] [address] Health Maintenance Due Date Last Done Comments Hepatitis B Vaccine (1 of 3 - Risk 3-dose series) 2003 Diabetes: Hemoglobin A1C 10/28/2023 Diabetes: Ophthalmology Exam 10/28/2023 Diabetes: Pedal Pulse Checked 10/28/2023 Diabetes: Sensory Foot Exam 10/28/2023 Diabetes: Visual Foot Exam 10/28/2023 Influenza Vaccine (Season Ended) 2024 12/06/2019, 12/11/2018, 12/01/2017, Additional history exists Pneumococcal Vaccine: 50+ Years Completed 9, 03/17/2017 Insurance [employer] [facility] Adv PPO ([id number]) Advance Directives Documents on File Type Date Recorded Patient Wire Harness Assembler Expl anation Advance Care Planning 01/02/2024 12:13 PM Care Teams Sales Planning Manager Relationship Specialty Start Date End Date Soy Joyce MD [address] [facility], [address] [place] [id number] PCP - General Internal Medicine 09/25/23
--- OUTSIDE RECORDS SUMMARY | 2024-06-14 12:16 | XMS_ITS | Clinical Summary ---
Author Organization [facility] Address [address] [place] [address] Care Team Providers Care Carpenter Form Name Role Phone Soy Joyce MD Primary [...] Encounters Date Type Department Care Team Description 04/28/[address] [facility] Oncology and Hematology [facility] [address] [place] [address] Danny Heart MD 04/27/2024 11:00 AM CDT Office Visit [facility] Oncology and Hematology [address] [place] [address] Danny Heart MD Other secondary thrombocytopenia (Primary Dx) from Last 3 Months Family History Medical [...] Body Mass Index 37.08 03/13/2021 10:16 AM PLUMBER SUPERVISOR Plan of Treatment Upcoming Encounters Date Type Department Care Team (Late st Contact Info) Description 01/25/2025 11:30 AM PLUMBER SUPERVISOR Office Visit [facility] Oncology and Hematology [place] [address] [place] [address] Danny Heart MD [address] [facility] [address] [place] [address] Health Maintenance Due Date Last Done Comments DIABETES ANNUAL FOOT EXAM 1961 DIABETES ANNUAL RETINAL EXAM 1961 ZOSTER VACCINE (1 of 2) 1993 RSV VACCINE (60+ or ) (1 - 1-dose 75+ series) 2018 DIABETES MICROALBUMIN ANNUAL SCREEN 02/23/2021 02/24/2020 LDL CHOLESTEROL ANNUAL 06/21/2021 1, 02/24/2020, 02/08/2020 INFLUENZA VACCINE (#1) 2023 3, 11/21/2021, 12/13/2020, Additional history exists COVID-19 Vaccine ( - 2023-2 5 season) 2023 07/31/2021, 03/14/2021, 04/30/2020, Additional history exists DIABETES HBA1C Q 6 MONTHS 09/21/20242024, 06/21/2020, 02/28/2020, Additional history exists OSTEOPOROSIS SCREENING 04/23/2027 04/22/2022 DTAP/TDAP/TD VACCINES (2 - T d or Tdap) 12/05/2029 12/06/2019 PNEUMOCOCCAL VACCINE 50+ YEARS Completed 05/19/2018 , 03/17/2017 COLORECTAL SCREENING Discontinued 08/04/2019 Colorectal Cancer Screening Discontinued FIT-DNA Q 3 years Discontinued FIT/FOBT Q 1 year Discontinued Flex Sig/CT Colonography Q 5 years Discontinued Procedures Procedure Name Priority Date/Time Associated Diagnosis Comments HEMOGLOBIN A1C Routine 03/24/2024 3:34 PM PLUMBER SUPERVISOR LIPID PANEL Routine 06/21/2020 MICROALBUMIN, RANDOM URINE Routine 02/24/2020 from Last 3 Months or Most Recently Relevant to Health Maintenance Results * HEMOGLOBIN A1C (03/24/2024 3:34 PM PLUMBER SUPERVISOR) Blood us Danny Heart MD CHEMISTRY ORDERABLES Final Resu lt * LIPID PANEL (06/21/2020) Blood us Abstract Provider CHEMISTRY ORDERABLES Final Res ult * MICROALBUMIN, RANDOM URINE (02/24/2020) Urine URINE SPECIMEN OBTAINED BY CLEAN CATCH PROCEDURE / Unknown us Abstract Provider URINE ORDERABLES Final Result from Last 3 Months or Most Recently Relevant to Health Maintenance Insurance [employer] PPO MCR Care Teams Carpenter Form Relationship Specialty Start Date End Date Soy Joyce MD PCP - General Internal Medicine 12/23/17
--- OUTSIDE RECORDS SUMMARY | 2024-06-14 12:17 | XMS_ITS | Patient Health Record ---
Author Organization [facility] Address [address] [facility] [address] [place] [address] REASON FOR REFERRAL No Information MEDICATIONS Medication SIG (Take, Route, Frequency, Duration) Notes Start Date End Date Status Vitamin D (Ergocalciferol) 1.25 MG (65925 UT) TAKE 1 CAPSULE BY MOUTH EVERY OTHER WEEK for 30 Active PROBLEMS Problem Type ICD Code Onset Dates Problem Status W/U Status Risk SNOMED Code Notes Problem Type 2 diabetes mellitus with hyperglycemia (E11.65) Active confirmed Hyperglycemia due to type 2 diabetes mellitus (705106324094825 ) Problem Essential (primary) hypertension (I10) Active confirmed Essential hypertension (39884931) Problem Chronic kidney disease, stage 2 (mild) (N18.2) Active confirmed Chronic kidne y disease stage 2 (561078410) Problem Proteinuria, unspecified (R80.9) Active confirmed Proteinuria (47120120) PLAN OF TREATMENT No Information
--- OUTSIDE RECORDS SUMMARY | 2024-06-14 12:17 | XMS_ITS | Continuity of Care Document ---
Author Organization [facility] Address [address] [place] [address] [address] [place] [address] Phone Care Team Providers Care Property Maintenance Supervisor Name Role Phone Jurgen Diallo Unavailable Unavailable Procedures Procedure Date Post-op Follow-up Visit Post-op Follow-up Visit Remove Cataract, Insert Lens Eye Exam, New Patient Echo Exam Of Eye Advance Directives Directive Yes / No Effective Date File Name No Information Encounters Encounter Description Practice Location Reason(s) For Visit Diagnoses Date Provider Providers Copied on Encounter [facility], [address] [place] [address] [address], [place], [place], [id number], tel:[phone] SEC [facility] No Information [address] [place] [address] , [address], [place], [place], [facility], . tel:[phone] Referring Provider: Fernie Byers, [address] [place] [address], [facility] [place]. tel:[phone] [facility], [address] [place] [address] [address], [place], [place], [id number], tel:[phone] SEC [facility] No Information [address] [place] [address] , [address], [place], [place], [facility] [place], [place]. tel:[phone] Referring Provider: Fernie Byers, [address] [place] [address], [facility]. tel:[phone] [facility], [address] [facility] [address], [place], [place], [id number], tel:[phone] [facility] No Information [facility] Edward. [address] [facility] , [address], [place], [place], [facility] [place], . tel:[phone] Referring Provider: Fernie Byers, [address] [place] [address], [facility] [place]. tel:[phone] [facility], [address] [place] [address], [place], [place], [id number], tel:[phone] [facility] No Information [facility] [place]. [facility] , [address], [place], [place], [facility] [place], . tel:[phone] Referring Provider: Fernie Byers, [address] [place] [address], [facility] [place]. tel:[phone] Family History Family Member Type Diagnosis Age [...]
--- OUTSIDE RECORDS SUMMARY | 2024-06-14 12:17 | XMS_ITS | CONTINUITY OF CARE DOCUMENT ---
Author Name amira collier Address Unknown Organization [facility] Address [address] [facility] [address] [place] [address] Phone [phone] Care Team Providers Care Field Support Rep Name Role Phone Stacy Auguste MD Unavailable [phone] ADITYA LOPEZ MD Unavailable ADITYA LOPEZ MD Unavailable PROBLEMS Condition Status Date Provider Notes Preoperative cardiovascular examination active Stacy Auguste MD Shortness of breath [...] Stroke: completed - M raz Auguste MD ENCOUNTERS Date Type Provider Location Encounter Diag nosis - In-person encounter Office Visit Stacy Auguset MD [facility] Office - In-person encounter Office Visit Stacy Auguste MD [place] Preoperative cardiovascular examination - In-person encounter Office Visit Stacy Auguste MD [facility] - In-person encounter Office Visit Stacy Auguste MD [facility] - In-person encounter Office Visit Stacy Auguste MD [facility] - In-person encounter Office Visit Stacy Auguste MD [facility] Shortness of breath with exertion - In-person encounter Office Visit Stacy Auguste MD [facility] - In-person encounter Office Visit Stacy Auguste MD [facility] Diabetes mellitus - In-person encounter Office Visit Stacy Auguste MD [facility] - In-person encounter Office Visit Stacy Auguste MD [facility] Venous insufficiency - In-person encounter Office Visit Stacy Auguste MD [facility] Family History of CVA or Stroke:Family History of Hyperlipidemia:Family History of Hypertension:Family History of Hyperlipidemia:Family History of Hypertension:MINA - On CPAPHTN essential - In-person encounter Office Visit Stacy Auguste MD [facility] HTN essential - In-person encounter Office Visit Stacy Auguste MD [facility] HypothyroidismOSA - On CPAPHyperlipidemiaHx of DVT, treated w XareltoGERDAbnormal LFT'sObesity VITAL SIGNS Date Observation Value Provider Body Mass Index (Ratio) 36.44 kg/m2 Alexander Auguste MD blood pressure, diastolic 71 mm[Hg] Sinai price [place] blood pressure, systolic 149 mm[Hg] Regina loving [place] oxygen saturation, oximetry 97 % [facility] pulse rate 86 /min [facility] respiratory rate E&M 12 /min [facility] weight E&M 219 [lb_av] [facility] height E&M 65 [in_i] [facility] blood pressure, cuff size regular [facility] Body Mass Index (Ratio) 36.61 kg/m2 Dileep jose Chapaty blood pressure, diastolic 75 mm[Hg] [facility] blood pressure, systolic 118 mm[Hg] Regina [facility] oxygen saturation, oximetry 99 % [facility] pulse rate 110 /min [facility] respiratory rate E&M 12 /min [facility] weight E&M 220 [lb_av] [facility] height E&M 65 [in_i] [facility] blood pressure, cuff size regular [facility] Body Mass Index (Ratio) 37.77 kg/m2 [...] ha O'Jamison blood pressure, systolic 132 mm[Hg] [facility] O'Jamison oxygen saturation, oximetry 93 % Marla O'Jamison respiratory rate E&M 16 /min Marla O'Jamison pulse rate 95 /min Marla O'Jamison weight E&M 235 [lb_av] Marla O'Jamison height E&M 65 [in_i] Marla O'Jamison Body Mass Index (Ratio) 38.10 kg/m2 Alexander Auguste MD blood pressure, cuff size regular Kr isty Cordelia pulse rate 103 /min Devika [place] oxygen saturation, oximetry 97 % Devika [place] blood pressure, diastolic 70 mm[Hg] Leo Colon [...] [lb_av] Frances Pelayobel l temperature site temporal [facility] temperature E&M 97.5 [degF] Rosaura Tanks sydnee [...] MD blood pressure, diastolic 70 mm[Hg] [facility] blood pressure, systolic 130 mm[Hg] Missy shearer [place] oxygen saturation, oximetry 97 % [facility] respiratory rate E&M 16 /min [facility] pulse rate 79 /min [facility] weight E&M 227 [lb_av] [facility] height E&M 65 [in_i] [facility] Body Mass Index (Ratio) 37.60 kg/m2 Alexander Auguste MD blood pressure, diastolic 80 mm[Hg] [facility] blood pressure, systolic 140 mm[Hg] Missy shearer [place] oxygen saturation, oximetry 95 % [facility] respiratory rate E&M 16 /min Tatum pulse rate 96 /min [facility] weight E&M 226 [lb_av] Tatum [place] height [...] Rosanna Jurgen height E&M 65 [in_i] Rosanna [place] Body Mass Index (Ratio) 38.44 kg/m2 Alexander [...] Allergy Relief 50 mcg/actuation spray,suspensio n active Harrison into both nostrils twice a day Marla Li alprazolam 0.25 mg tablet active Take 1 tablet by mouth once a day as needed Frances Ellison VITAMIN D (ERGOCALCIFEROL ) 46[address] UNIT ORAL CAPSULE completed Take once a [...] Payer name Policy type / Coverage type Murray red libertarian ID AETNA MEDICARE ESA PPO Medicare [id number] 100 ADVANCE DIRECTIVES Name Date POWER OF GAS SYSTEMS WORKER TREATMENT PLAN Date Name Performer [id number],C,C ontinues on Rosuvastatin. We aim for an LDL <70. Stacy Auguste MD [id number],C,T he patient is using CPAP on a regular basis. The patient has been benefiting from therapy and should continue use. Stacy Auguste MD [id number],C,On levothyrox ine. Stacy Auguste MD [id number],C,On metformin 500mg BID. Stacy Auguste MD [id number],C,B P elevated, dietary compliance stressed. Also asked her to increase lisinopril to 10mg daily, and monitor BP on a regular basis. Stacy Auguste MD [id number],C, W eight loss advised Stacy Auguste MD [id number],C, C ontinues on replacement therapy. Stacy Auguste MD [id number],C, C ontinues on Rosuvastatin. We aim for an LDL <70. Stacy Auguste MD [id number],C, C ontinues on Metformin. Stacy Auguste MD [id number],C, H er echo 08/24/2020 showed normal LV function. EF 60%. Nuclear stress test 08/24/2020 showed normal perfusion. The patient has been reassured. Weight reduction advised. Stacy Auguste MD [id number],C, B P today elevated at 150/83. Advised she monitor at home. Stacy Auguste MD [id number],C, A bdominal US 06/2020 showed nodular liver contour suggesting cirrhosis. Follows with CLINICAL PROJECT COORDINATOR at [facility] whose name she cannot recall. Will obtain bloodwork from PCP. Stacy Auguste MD [id number],C,T he patient is using CPAP on a regular basis. The patient has been benefiting from therapy and should continue use. Stacy Auguste MD [id number],C,C ontinues on Metformin. Stacy Auguste MD [id number],C,C ontinues on Rosuvastatin. We aim for an LDL <70. Stacy Auguste MD [id number],C,B P control is satisfactory. Stacy Auguste MD [id number],C,H er recent echo 08/24/2020 showed normal LV [...] nodular liver contour suggesting cirrhosis. Follows with CLINICAL PROJECT COORDINATOR at [facility] whose name she cannot recall. Will obtain [...] Auguste MD Cardiology:Continues on replacement therapy. Stacy Augsute MD Cardiology:Diet cont rolled. We await blood [...]
--- OUTSIDE RECORDS SUMMARY | 2024-06-14 12:17 | XMS_ITS | Clinical Summary ---
Author Organization [facility] Address [address] [place] [address] Care Team Providers Care Disk Operator Name Role Phone Soy Joyce MD Primary Care Provider Source Comments [facility],non-owned Affiliates and Associated Physician Practices is amultiple site organization consisting of ambulatory clinics and hospital sitesin [place], [place], [place] and [place]. This disclosure is being madepursuant to the Care Everywhere program and may not contain all information available regarding this patient. Last updated 17.[facility] Allergies No known active allergies Medications * Be aware that medications may not be up to date on this document. Alwaysverify current medications with the patient. levothyroxine (SYNTHROID) 150 MCG tablet Take 100 mcg by mouth daily before breakfast 1 Active venlafaxine XR 24hr (EFFEXOR XR) 75 MG capsule venlafaxine ER 75 mg capsule,extended release 24 hr TAKE 1 CAPSULE BY MOUTH EVERY DAY. CONTACT CLINIC IF CHANGE IN MOOD OR BEHAVIOR. NO ALCOHOL DRIVING OR WITH SEDATING MEDICATIONS Active rosuvastatin (Crestor) 20 MG tablet Take 1 (one) tablet by mouth once daily 2 Active diclofenac sodium EC (Voltaren) 75 MG tablet Take 1 (one) tablet by mouth 2 times daily Active Multiple Vitamins-Musselshell als (WOMENS MULTI VITAMIN & MINERAL PO) Take by mouth once daily Active olmesartan (Benicar) 5 MG tablet Take 1 (one) tablet by mouth once daily 4 Active Ozempic, 1 MG/DOSE, 4 MG/3ML pen Inject 1 (one) mg subcutaneously every 7 days 4 Active levothyroxine (Synthroid) 100 MCG tablet Take [...] Telephone [facility] - GI [address] [place] [phone] Anastasia Gandhi APRN-CNP Discuss Surgery 04/07/2024 Telephone [facility] - [address] [place] [phone] Maggy Hess, insurance claims supervisor 04/03/2024 8:57 AM BUSINESS BANKER - 04/03/2024 11:59 PM BUSINESS BANKER Hospital Encounter [facility] MRI [address] [place] [address] Anastasia Gandhi, EDMUNDO Discharge Disposition: Home or Self Care from Last 3 Months Social History Tobacco Use Types Packs/Day Years Used Date Smoking Tobacco: Never Smokeless Tobacco: Never Tobacco Cessation:Counseling Given: Not Answered Alcohol Use Standard Drinks/Week Comments Never 0 (1 standard drink = 0.6 oz pur e alcohol) Comments No Sex and Gender Information Value Date Recorded Sex Assigned at Not on file Legal Sex Female 3:03 PM CDT Gender Identity Not on file Sexual Orientation Not on file Last Filed Vital Signs Vital Sign Reading Time Taken Comments Blood Pressure 133/72 03/04/2024 10:58 AM BUSINESS BANKER Pulse 92 03/04/2024 10:58 AM BUSINESS BANKER Temperature 37.2 C (99 F) 03/04/2024 10:58 AM BUSINESS BANKER Respiratory Rate 18 02/13/2023 10:1 3 AM BUSINESS BANKER Oxygen Saturation 95% 03/04/2024 10: 58 AM BUSINESS BANKER Inhaled Oxygen Concentration - - Weight 100.1 kg (220 lb 9.6 oz) 025 10:58 AM BUSINESS BANKER Height 165.1 cm (5' 5 ) 03/04/2024 10:5 8 AM BUSINESS BANKER Body Mass Index 36.71 03/04/2024 10:58 AM BUSINESS BANKER Plan of Treatment Upcoming Encounters Date Type Department Care Team (Late st Contact Info) Description 07/26/2024 3:30 PM CDT Appointment [facility] MRI [address] [place] [address] Anastasia Gandhi, ROLLER PRINT TENDER-FISHER [facility] NET [address] [place] [address] [address] [place] [address] 08/09/2024 10:00 AM CDT Office Visit [facility] - [place] [address] [facility], [place] [place] [address] Anastasia Gandhi, ROLLER PRINT TENDER-FISHER LAMPARA NET [address] [place] [address] [address] [place] [address] Health Maintenance Due Date Last Done Comments [...] 2023 07/31/2021, 03/14/2021, 04/30/2020, Additional history exists DEPRESSION SCREENING 02/11/2024 DIABETES - URINE PROTEIN SCREENING 02/11/2024 11/27/2022, 03/05/2022 MEDICARE AWV CALENDAR YEAR 2024 INFLUENZA VACCINE (Season Ended) 2024 12/06/2019, 12/11/2018, 12/01/2017, Additional history exists DIABETES-SERUM CREATININE 03/04/20252024, 11/27/2022, 03/05/2022, Additional history [...] Medication Management General On track( 10:55 AM BUSINESS BANKER) No Lana Shultz RN Note: Expected end date: Ongoing Interventions: Take all medications as prescribed Let your doctor know right away about any changes in your medications Make sure to request a refill of your medication at least one week prior to your last dose Safety General On track( 11:03 AM BUSINESS BANKER) No Neida Javed RN Note: Expected end [...] ABDOMEN WWO CONTRAST Routine 04/03/2024 11:14 AM BUSINESS BANKER 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) Liver lesion COMPREHENSIVE METABOLIC PANEL Routine 03/04/2024 12:25 PM BUSINESS BANKER 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) Liver lesion MICROALB/CREAT RATIO URINE (EXTERNAL RESULT ENTRY) Routine 11/27/2022 9:45 AM CDT HEMOGLOBIN A1C (EXTERNAL RESULT ENTRY) Routine 11/27/2022 9:45 AM CDT from Last 3 Months or Most Recently Relevant to Health Maintenance Results * MRI Abdomen Wwo Contrast (04/03/2024 11:14 AM BUSINESS BANKER) Anatomical Region Laterality Modality Abdomen Magnetic Resonan ce 04/03/2024 9:49 PM BUSINESS BANKER Impressions 04/03/2024 10:02 PM BUSINESS BANKER Impression: 1.Liver: Lobulated outline of the liver [...] 04/03/2024 10:02 PM Narrative 04/03/2024 10:02 PM BUSINESS BANKER PROCEDURE: MRI ABDOMEN WWO CONTRAST, DATE/TIME OF EXAM: 04/03/2024 11:15 AM, LOCATION [facility] INDICATION: K75.81: 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 [...] MRI ABDOMEN WWO CONTRAST, DATE/TIME OF EXAM: :15 AM, LOCATION [facility] INDICATION: K75.81: 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 [...] Worrell MD on 510:02 PM Anastasia Gandhi ROLLER PRINT TENDER-FISHER LAMPARA NET MR ORDERABLES Fin al Result * (ABNORMAL) COMPREHENSIVE METABOLIC PANEL (03/04/2024 12:25 PM BUSINESS BANKER) BUN 16 7 - 26 mg/dL 03/04/2024 12:59 PM [facility] Creatinine 0.92 0.56 - 0.96 mg/dL 03/04/2024 12:59 PM [facility] Sodium 141 136 - 145 mmol/L 03/04/2024 12:59 PM [facility] Potassium 4.6(H) 3.5 - 4.5 mmol/L 03/04/2024 12:59 PM [facility] Chloride 106 98 - 107 mmol/L 03/04/2024 12:59 PM [facility] CO2 26 22 - 29 mmol/L 03/04/2024 12:59 PM [facility] Glucose 110(H) 70 - 99 mg/dL 03/04/2024 12:59 PM [facility] Calcium 9.7 8.4 - 10.2 mg/dL 03/04/2024 12:59 PM [facility] Protein Total 7.5 6.0 - 8.3 g/dL 03/04/2024 12:59 PM [facility] Albumin 4.0 3.4 - 5.0 g/dL 03/04/2024 12:59 PM [facility] Bilirubin Total 0.6 0.2 - 1.2 mg/dL 03/04/2024 12:59 PM [facility] Alkaline Phosphatase 51 40 - 150 U/L 03/04/2024 12:59 PM [facility] ALT 26 5 - 55 U/L 03/04/2024 12:59 PM [facility] AST 30 5 - 34 U/L 03/04/2024 12:59 PM [facility] Anion Gap 9 6 - 16 03/04/2024 12:59 PM [facility] BUN/Creatinine Ratio 17 7 - 23 03/04/2024 12:59 PM [facility] Osmolality Calculated 294 275 - 295 mOsm/kg 03/04/2024 12:59 PM [facility] Albumin/Globulin Ratio 1.1 1.1 - 2.3 03/04/2024 12:59 PM [facility] eGFR by CKD-EPI 63(L) >=90 mL/min/1.7 3 m2 03/04/2024 12:59 PM [facility] Blood BLOOD SPECIMEN / Unknown Lab Venipuncture / Unknown 03/04/2024 12:25 PM BUSINESS BANKER 03/04/2024 12:32 PM BUSINESS BANKER Result [facility] Anastasia Gandhi ROLLER PRINT TENDER-FISHER LAMPARA NET LAB - CHEMISTRY ORD ERABLES Final Result [facility] [address] [place] [address], [facility] [phone] * MICROALB/CREAT RATIO URINE (EXTERNAL RESULT ENTRY) (11/27/2022 9:45 AM CDT) Microalb/Creat Ratio (EXTERNAL RESULT) 84.4 mg/g OTHER LAB Urine URINE / Unknown 11/27/2022 9 :45 AM CDT Result [facility] Historical Provider LAB - URINE CHEMISTRY ORD ERABLES Final Result OTHER LAB * HEMOGLOBIN A1C (EXTERNAL RESULT ENTRY) (11/27/2022 9:45 AM CDT) Hemoglobin A1c (EXTERNAL RESULT) 5.6 % OTHER LAB Blood BLOOD SPECIMEN / Unknown 11/27/2022 9:45 AM CDT Historical Provider LAB - CHEMISTRY ORDERABLE S Final Result OTHER LAB from Last 3 Months or Most Recently Relevant to Health Maintenance Insurance AETNA AETNA MEDICARE ADV Care Teams Disk Operator Relationship Specialty Start Date End Date Soy Joyce MD [address] [facility] [address] [place] [address] PCP - General 02/04/21
--- NOTE | 2024-06-14 13:15 | ED_ITS ---
HPI - Extremity Injury (Lower) General Chief Complaint: Extremity Injury, Lower Stated Complaint: right hip pain Time Seen by Provider: 06/14/24 12:47 History of Present Illness HPI Narrative: 79-year-old female presenting with right hip pain. States that it started couple of weeks ago, she is concerned that she twisted it while doing some moving. Denies recent falls or trauma. States that she has had sharp shooting pain in the right hip since then. Her PCP ordered an outpatient x-ray but she was unable to wait that long. No leg swelling. Related Data Home Medications ?Medication ?Instructions ?Recorded ?Confirmed ?Last Taken ?Type levothyroxine 150 mcg capsule 150 mcg PO DAILY 05/22/23 05/21/24 Unknown History lisinopril 2.5 mg tablet 2.5 mg PO DAILY 05/22/23 05/21/24 Unknown History metoprolol succinate 25 mg 25 mg PO DAILY 05/22/23 05/21/24 Unknown History tablet,extended release 24 hr multivitamin (One Daily 1 tablet PO DAILY 05/22/23 05/21/24 Unknown History Multivitamin tablet) rosuvastatin 20 mg tablet 20 mg PO DAILY 05/22/23 05/21/24 Unknown History semaglutide 0.25 mg or 0.5 mg (2 0.25 mg subcut WEEKLY 05/22/23 05/21/24 Unknown History mg/3 mL) subcutaneous pen injector (Ozempic) venlafaxine 75 mg capsule,extended 75 mg PO DAILY 05/22/23 05/21/24 Unknown History release 24 hr diclofenac sodium 75 mg 75 mg PO BID 11/11/23 05/21/24 Unknown History tablet,delayed release Allergies Allergy/AdvReac Type Severity Reaction Status Date / Time No Known Allergies Allergy Verified 06/14/24 11:24 Review of Systems Review of Systems: All systems reviewed & are unremarkable except as noted in HPI and below PMFSH Past Medical History Medical History History of cataract Hyperlipemia Hypertension Surgical History Surgical History History of knee surgery History of hernia repair History of cholecystectomy History of carpal tunnel release left History of elbow surgery left History of tonsillectomy Family History Family History Grandparent Breast cancer Father Hypertension Asthma Blood clot in leg Cerebrovascular accident Mother Hypertension Blood clot in leg Sibling No problems noted. 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 HEAD: Normocephalic, atraumatic. EYES: PERRLA and EOMI. ENT: Mucous membranes moist. NECK: Supple. CHEST: Clear to auscultation. No respiratory distress. HEART: Regular rate and rhythm EXTREMITIES: Normal range of motion. No edema. + mild tenderness right posterior hip SKIN: Warm, dry, no rash. NEURO: No focal deficits. Alert and oriented x3. PSYCH: Normal mood and affect. Course Vital Signs Vital signs: Vital Signs Temperature 97.5 F L 06/14/24 11:25 Pulse Rate 98 06/14/24 11:25 Respiratory Rate 15 06/14/24 11:25 Blood Pressure 154/72 H 06/14/24 11:25 Pulse Oximetry 99 06/14/24 11:25 Oxygen Delivery Room Air 06/14/24 11:25 Temperature 97.5 F L 06/14/24 11:25 Pulse Rate 98 06/14/24 11:25 Respiratory Rate 15 06/14/24 11:25 Blood Pressure 154/72 H 06/14/24 11:25 Pulse Oximetry 99 06/14/24 11:25 Oxygen Delivery Room Air 06/14/24 11:25 MDM - Extremity Injury (Lower) MDM Narrative Medical decision making narrative: 79-year-old female presenting with right hip pain. Exam remarkable for the above. X-ray shows osteoarthritis but no acute abnormalities. Discussed appropriate supportive care and recommend Voltaren gel for pain relief along with Tylenol. Advised she follow-up with her PCP and orthopedic surgeon. Appropriate return precautions given. Discharged in stable condition. Differential Diagnosis Differential diagnosis: Likely fracture of femur, fracture of hip and other (Hip pain) Medical Records Attestation: I reviewed the patient's medical records. Imaging Data Radiologist's impression: ITS Impressions Hip/Pelvis X-Ray 06/14/24 14:11 Impression: 1: No acute fracture. Critical Care Time Critical Care Time Critical Care Time: No Discharge Plan Discharge Clinical Impression: Arthritis of hip Patient Disposition: Home Condition: Stable Instructions: Antibiotic Form Additional Instructions: Your x-ray shows arthritis in your hips but no broken bones. Please use Voltaren gel for pain relief and follow-up with your PCP and orthopedist. If your symptoms worsen or other concerning symptoms arise, please return to the ER. Patient Language: Georgian Prescriptions: No Action levothyroxine 150 mcg capsule 150 mcg PO DAILY lisinopril 2.5 mg tablet 2.5 mg PO DAILY metoprolol succinate 25 mg tablet extended release 24 hr 25 mg PO DAILY rosuvastatin 20 mg tablet 20 mg PO DAILY venlafaxine 75 mg capsule,extended release 24hr 75 mg PO DAILY Ozempic 0.25 mg or 0.5 mg (2 mg/3 mL) pen injector 0.25 mg subcut WEEKLY Rx Instructions: for 4 weeks multivitamin [One Daily Multivitamin] Tablet 1 tablet PO DAILY diclofenac sodium 75 mg tablet,delayed release (DR/EC) 75 mg PO BID diclofenac sodium 75 mg tablet,delayed release (DR/EC) 75 mg PO BID Qty: 60 0RF Follow-up/Referrals: Dima Ramso MD [Physician] - Maria Del Carmen,MD Soy [Primary Care Provider] -
[2024-06-14] MEDS: KETOROLAC 30 MG/ML VIAL (*BKC) 15 MG IM (13:40)
--- OUTSIDE RECORDS SUMMARY | 2024-06-14 14:06 | XMS_ITS | Clinical Summary ---
Author Organization [facility] Facility Address [address] [place] [address] Care Team Providers Care Oxyacetylene Torch Operator Name Role Phone Soy Joyce MD Primary Care Provider [phone] Medications olmesartan (BENICAR) 5 MG tablet Take 1 tablet (5 mg total) by mouth 1 (one) time each day 90 tablet 1 12/30/2023 Active Encounters Date Type Department Care Team Description 05/25/2024 Office Communication [facility], [facility] [address] [facility] [address] [place] [phone] Antwan Arora DO 04/02/2024 Documentation Only [facility], [address] [address] Antwan Aorra DO 04/02/2024 Documentation Only [address] [address] Antwan Arora DO from Last [...] Comments Blood Pressure 110/60 03/02/2024 3:49 PM ANTHROPOLOGY AND ARCHEOLOGY INSTRUCTOR Pulse 68 03/02/2024 3:49 PM ANTHROPOLOGY AND ARCHEOLOGY INSTRUCTOR Temperature 36.7 C (98 F) 03/02/2024 3:49 PM ANTHROPOLOGY AND ARCHEOLOGY INSTRUCTOR Respiratory Rate 18 03/02/2024 3:49 PM ANTHROPOLOGY AND ARCHEOLOGY INSTRUCTOR Oxygen Saturation 97% 03/02/2024 3:49 PM ANTHROPOLOGY AND ARCHEOLOGY INSTRUCTOR Inhaled Oxygen Concentration - - Weight 99.3 kg (219 lb) 03/02/2024 3:49 PM ANTHROPOLOGY AND ARCHEOLOGY INSTRUCTOR Height - - Body Mass Index - - Plan of Treatment Upcoming Encounters Date Type Department Care Team (Late st Contact Info) Description 08/31/2024 12:30 PM CDT Office Visit [facility], [facility] [address] [facility] [address] [place] [address] Antwan Arora DO [address] [facility] [address] [place] [address] Health Maintenance Due Date Last Done Comments Hepatitis B Vaccine (1 of 3 - Risk 3-dose series) 2003 Diabetes: Hemoglobin A1C 10/28/2023 Diabetes: Ophthalmology Exam 10/28/2023 Diabetes: Pedal Pulse Checked 10/28/2023 Diabetes: Sensory Foot Exam 10/28/2023 Diabetes: Visual Foot Exam 10/28/2023 Influenza Vaccine (Season Ended) 2024 12/06/2019, 12/11/2018, 12/01/2017, Additional history exists Pneumococcal Vaccine: 50+ Years Completed 9, 03/17/2017 Insurance Aetna [facility] Adv PPO ([id number]) Advance Directives Documents on File Type Date Recorded Patient Hybrid Tester Expl anation Advance Care Planning 01/02/2024 12:13 PM Care Teams Oxyacetylene Torch Operator Relationship Specialty Start Date End Date Soy Joyce MD [address] [facility], [address] [place] [id number] PCP - General Internal Medicine 09/25/23
--- OUTSIDE RECORDS SUMMARY | 2024-06-14 14:06 | XMS_ITS | Clinical Summary ---
Author Organization [facility] Address [address] [place] [address] Care Team Providers Care Flume Tender Name Role Phone Soy Joyce MD Primary [...] Department Care Team Description 04/28/2024 Orders Only [facility] [address] [place] [address] Danny Heart MD 04/27/2024 11:00 AM CDT Office Visit [facility] [address] [place] [address] Danny Heart MD Other secondary [...] Body Mass Index 37.08 03/13/2021 10:16 AM REALTIME CAPTIONER Plan of Treatment Upcoming Encounters Date Type Department Care Team (Late st Contact Info) Description 01/25/2025 11:30 AM REALTIME CAPTIONER Office Visit [facility] [address] [place] [address] Danny Heart MD [address] [facility] [address] [place] [address] Health Maintenance Due Date Last [...] Comments HEMOGLOBIN A1C Routine 03/24/2024 3:34 PM REALTIME CAPTIONER LIPID PANEL Routine 06/21/2020 MICROALBUMIN, RANDOM URINE Routine 02/24/2020 from Last 3 Months or Most Recently Relevant to Health Maintenance Results * HEMOGLOBIN A1C (03/24/2024 3:34 PM REALTIME CAPTIONER) Blood us Danny Heart MD CHEMISTRY ORDERABLES Final Resu lt * LIPID PANEL (06/21/2020) Blood us Abstract Provider CHEMISTRY ORDERABLES Final Res ult * MICROALBUMIN, RANDOM URINE (02/24/2020) Urine URINE SPECIMEN OBTAINED BY CLEAN CATCH PROCEDURE / Unknown us Abstract Provider URINE ORDERABLES Final Result from Last 3 Months or Most Recently Relevant to Health Maintenance Insurance AET[employer] PPO MCR Care Teams Flume Tender Relationship Specialty Start Date End Date Soy Joyce MD PCP - General Internal Medicine 12/23/17
--- OUTSIDE RECORDS SUMMARY | 2024-06-14 14:07 | XMS_ITS | Clinical Summary ---
Author Organization [facility] [employer] Address [address] [place] [address] Care Team Providers Care Medical Data Analyst Name Role Phone Soy Joyce MD Primary Care Provider Source Comments [facility] [employer],non-owned Affiliates and Associated Physician Practices is amultiple site organization consisting of ambulatory clinics and hospital sitesin [place], [place], [place] and [place]. This disclosure is being madepursuant to the Care Everywhere program and may not contain all information available regarding this patient. Last updated 17.[facility] [employer] Allergies No known active allergies Medications * [...] by mouth 2 times daily Active Multiple Vitamins-[place] als (WOMENS MULTI VITAMIN & MINERAL PO) [...] Telephone [facility] GI [address] [place] [id number] Anastasia Gandhi APRN-CNP Discuss Surgery 04/07/2024 Telephone [facility] - [address] [place] [id number] Maggy Hess, trimmer buffing wheel 04/03/2024 8:57 AM LIME KILN WORKER HELPER - 04/03/2024 11:59 PM LIME KILN WORKER HELPER Hospital Encounter [facility] MRI [address] [place] [address] Anastasia Gandhi, EDMUNDO Discharge Disposition: Home or [...] Comments Blood Pressure 133/72 03/04/2024 10:58 AM LIME KILN WORKER HELPER Pulse 92 03/04/2024 10:58 AM LIME KILN WORKER HELPER Temperature 37.2 C (99 F) 03/04/2024 10:58 AM LIME KILN WORKER HELPER Respiratory Rate 18 02/13/2023 10:1 3 AM LIME KILN WORKER HELPER Oxygen Saturation 95% 03/04/2024 10: 58 AM LIME KILN WORKER HELPER Inhaled Oxygen Concentration - - Weight 100.1 kg (220 lb 9.6 oz) 025 10:58 AM LIME KILN WORKER HELPER Height 165.1 cm (5' 5 ) 03/04/2024 10:5 8 AM LIME KILN WORKER HELPER Body Mass Index 36.71 03/04/2024 10:58 AM LIME KILN WORKER HELPER Plan of Treatment Upcoming Encounters Date Type Department Care Team (Late st Contact Info) Description 07/26/2024 3:30 PM CDT Appointment [facility] MRI [address] [place] [address] Anastasia Gandhi, TIME BROKER-GROUND SYSTEMS ENGINEER [address] [place] [address] [address] [place] [address] 08/09/2024 10:00 AM CDT Office Visit [facility] - GI [address] [facility] [place] [address] Anastasia Gandhi, TIME BROKER-GROUND SYSTEMS ENGINEER [address] [place] [address] [address] [place] [address] Health Maintenance Due Date Last Done Comments [...] Medication Management General On track( 10:55 AM LIME KILN WORKER HELPER) No Lana Shultz RN Note: Expected end date: Ongoing Interventions: Take all medications as prescribed Let your doctor know right away about any changes in your medications Make sure to request a refill of your medication at least one week prior to your last dose Safety General On track( 11:03 AM LIME KILN WORKER HELPER) No Neida Javed RN Note: Expected end [...] ABDOMEN WWO CONTRAST Routine 04/03/2024 11:14 AM LIME KILN WORKER HELPER 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) Liver lesion COMPREHENSIVE METABOLIC PANEL Routine 03/04/2024 12:25 PM LIME KILN WORKER HELPER 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) Liver lesion MICROALB/CREAT RATIO URINE (EXTERNAL RESULT ENTRY) Routine 11/27/2022 9:45 AM CDT HEMOGLOBIN A1C (EXTERNAL RESULT ENTRY) Routine 11/27/2022 9:45 AM CDT from Last 3 Months or Most Recently Relevant to Health Maintenance Results * MRI Abdomen Wwo Contrast (04/03/2024 11:14 AM LIME KILN WORKER HELPER) Anatomical Region Laterality Modality Abdomen Magnetic Resonan ce 04/03/2024 9:49 PM LIME KILN WORKER HELPER Impressions 04/03/2024 10:02 PM LIME KILN WORKER HELPER Impression: 1.Liver: Lobulated outline of the liver [...] 04/03/2024 10:02 PM Narrative 04/03/2024 10:02 PM LIME KILN WORKER HELPER PROCEDURE: MRI ABDOMEN WWO CONTRAST, DATE/TIME OF EXAM: 04/03/2024 11:15 AM, LOCATION [facility] INDICATION: K75.81: 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 [...] CONTRAST, DATE/TIME OF EXAM: :15 AM, LOCATION [facility] INDICATION: K75.81: 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 [...] Worrell MD on 510:02 PM Anastasia Gandhi TIME BROKER-GROUND SYSTEMS ENGINEER MR ORDERABLES Fin al Result * (ABNORMAL) COMPREHENSIVE METABOLIC PANEL (03/04/2024 12:25 PM LIME KILN WORKER HELPER) BUN 16 7 - 26 mg/dL 03/04/2024 12:59 PM [facility] Creatinine 0.92 0.56 - 0.96 mg/dL 03/04/2024 12:59 PM [facility] Sodium 141 136 - 145 mmol/L 03/04/2024 12:59 PM [facility] Potassium 4.6(H) 3.5 - 4.5 mmol/L 03/04/2024 12:59 PM [facility] Chloride 106 98 - 107 mmol/L 03/04/2024 12:59 PM [facility] CO2 26 22 - 29 mmol/L 03/04/2024 12:59 PM [facility] Glucose 110(H) 70 - 99 mg/dL 03/04/2024 12:59 PM [facility] Calcium 9.7 8.4 - 10.2 mg/dL 03/04/2024 12:59 PM [facility] Protein Total 7.5 6.0 - 8.3 g/dL 03/04/2024 12:59 PM [facility] Albumin 4.0 3.4 - 5.0 g/dL 03/04/2024 12:59 PM [facility] Bilirubin Total 0.6 0.2 - 1.2 mg/dL 03/04/2024 12:59 PM [facility] Alkaline Phosphatase 51 40 - 150 U/L 03/04/2024 12:59 PM [facility] ALT 26 5 - 55 U/L 03/04/2024 12:59 PM [facility] AST 30 5 - 34 U/L 03/04/2024 12:59 PM [facility] Anion Gap 9 6 - 16 03/04/2024 12:59 PM [facility] BUN/Creatinine Ratio 17 7 - 23 03/04/2024 12:59 PM [facility] Osmolality Calculated 294 275 - 295 mOsm/kg 03/04/2024 12:59 PM [facility] Albumin/Globulin Ratio 1.1 1.1 - 2.3 03/04/2024 12:59 PM [facility] eGFR by CKD-EPI 63(L) >=90 mL/min/1.7 3 m2 03/04/2024 12:59 PM [facility] Blood BLOOD SPECIMEN / Unknown Lab Venipuncture / Unknown 03/04/2024 12:25 PM LIME KILN WORKER HELPER 03/04/2024 12:32 PM LIME KILN WORKER HELPER Result [facility] Anastasia Gandhi TIME BROKER-GROUND SYSTEMS ENGINEER LAB - CHEMISTRY ORD ERABLES Final Result [facility] [address] [place] [address], [facility] [phone] * MICROALB/CREAT RATIO URINE (EXTERNAL RESULT ENTRY) (11/27/2022 9:45 AM CDT) Microalb/Creat Ratio (EXTERNAL RESULT) 84.4 mg/g OTHER LAB Urine URINE / Unknown 11/27/2022 9 :45 AM CDT Result [facility] Historical Provider LAB - URINE CHEMISTRY ORD [...] Insurance AETNA AETNA MEDICARE ADV Care Teams Medical Data Analyst Relationship Specialty Start Date End Date Soy Joyce MD [address] [facility] [address] [place] [address] PCP - General 02/04/21
--- OUTSIDE RECORDS SUMMARY | 2024-06-14 14:07 | XMS_ITS | CONTINUITY OF CARE DOCUMENT ---
Author Name amira collier Address Unknown Organization [facility] Address [address] [facility] [address] [place] [address] Phone [phone] Care Team Providers Care Color Finisher Name Role Phone Stacy Auguste MD Unavailable [...] Preoperative cardiovascular examination active Stacy Auguste MD Family History of Hyperlipidemia: completed - Stacy Auguste MD Family History of Hypertension: completed - Yao Auguste MD Family History of Hyperlipidemia: completed - Stacy Auguste MD Family History of CVA or Stroke: completed - M raz Auguste MD ENCOUNTERS Date Type Provider Location Encounter Diag nosis - In-person encounter Office Visit Stacy Auguste MD [facility] Office - In-person encounter Office Visit Stacy Auguste MD [facility] Preoperative cardiovascular examination - In-person encounter Office Visit Stacy Auguste MD [facility] - In-person encounter Office Visit Stacy Auguste MD [facility] - In-person encounter Office Visit Stacy Auguste MD [facility] - In-person encounter Office Visit Stacy Auguste MD [facility] Shortness of breath with exertion - In-person encounter Office Visit Stacy Auguste MD [facility] - In-person encounter Office Visit Stacy Auguste MD [facility] Diabetes mellitus - In-person encounter Office Visit Stacy Auguste MD [facility] - In-person encounter Office Visit Stacy Auguste MD [facility] Venous insufficiency - In-person encounter Office Visit Stacy Auguste MD [facility] Family History of CVA or Stroke:Family History of Hyperlipidemia:Family History of Hypertension:Family History of Hyperlipidemia:Family History of Hypertension:MINA - On CPAPHTN essential - In-person encounter Office Visit Stacy Auguste MD [facility] HTN essential - In-person encounter Office Visit Stacy Auguste MD [facility] HypothyroidismOSA - On CPAPHyperlipidemiaHx of DVT, treated w XareltoGERDAbnormal LFT'sObesity VITAL SIGNS Date Observation Value Provider Body Mass Index (Ratio) 36.44 kg/m2 Alexander Auguste MD blood pressure, diastolic 71 mm[Hg] [facility] [place] blood pressure, systolic 149 mm[Hg] Regina loving [place] oxygen saturation, oximetry 97 % [facility] 86 /min [facility] respiratory rate E&M 12 /min [facility] weight E&M 219 [lb_av] [facility] height E&M 65 [in_i] [facility] blood pressure, cuff size regular [facility] Body Mass Index (Ratio) 36.61 kg/m2 Dileep jose Chapaty blood pressure, diastolic 75 mm[Hg] [facility] blood pressure, systolic 118 mm[Hg] [facility] saturation, oximetry 99 % [facility] pulse rate 110 /min [facility] respiratory rate E&M 12 /min [facility] weight E&M 220 [lb_av] [facility] height E&M 65 [in_i] [facility] blood pressure, cuff size regular [facility] Body Mass Index (Ratio) 37.77 kg/m2 Alexander [...] ha O'Jamison blood pressure, systolic 132 mm[Hg] [facility] O'Jamison oxygen saturation, oximetry 93 % Marla O'Jamison respiratory rate E&M 16 /min Marla O'Jamison pulse rate 95 /min Marla O'Jamison weight E&M 235 [lb_av] Marla O'Jamison height E&M 65 [in_i] Marla O'Jamison Body Mass Index (Ratio) 38.10 kg/m2 Alexander Auguste MD blood pressure, cuff size regular Kr isty Cordelia pulse rate 103 /min Devika Waldron oxygen saturation, oximetry 97 % Devika Waldron blood pressure, diastolic 70 mm[Hg] Leo Colon [...] Francescyndie Ellison weight E&M 226 [lb_av] Frances ePlayobel l height E&M 65 [in_i] Frances Pelayobel [...] [lb_av] Frances Pelayobel l temperature site temporal [facility] temperature E&M 97.5 [degF] Rosaura Tanks sydnee [...] MD blood pressure, diastolic 70 mm[Hg] [facility] blood pressure, systolic 130 mm[Hg] Missy shearer [place] oxygen saturation, oximetry 97 % [facility] respiratory rate E&M 16 /min [facility] 79 /min [facility] weight E&M 227 [lb_av] [facility] height E&M 65 [in_i] [facility] Body Mass Index (Ratio) 37.60 kg/m2 Alexander Auguste MD blood pressure, diastolic 80 mm[Hg] Mp [facility] blood pressure, systolic 140 mm[Hg] Missy shearer [place] oxygen saturation, oximetry 95 % [facility] respiratory rate E&M 16 /min Tatum pulse rate 96 /min [facility] weight E&M 226 [lb_av] Tatum Mendiola height [...] Rosanna Jurgen height E&M 65 [in_i] Rosanna [place] Body Mass Index (Ratio) 38.44 kg/m2 Alexander [...] Allergy Relief 50 mcg/actuation spray,suspensio n active [place] into both nostrils twice a day Marla Li alprazolam 0.25 mg tablet active Take 1 tablet by mouth once a day as needed Frances Ellison VITAMIN D (ERGOCALCIFEROL ) [id number] UNIT ORAL CAPSULE completed Take once a [...] Payer name Policy type / Coverage type [employer] red green party ID AETNA MEDICARE ESA PPO Medicare [id number] 100 ADVANCE DIRECTIVES Name Date POWER OF GANG WORKER TREATMENT PLAN Date Name Performer [id number],C,C ontinues on Rosuvastatin. We aim for an LDL <70. Stacy Auguste MD [id number],C,T he patient is using CPAP on a regular basis. The patient has been benefiting from therapy and should continue use. Stacy Auguste MD [id number],C,On levothyrox ine. Stacy Auguste MD [id number],C,On metformin 500mg BID. Stacy Auguste MD [id number],C,B P elevated, dietary compliance stressed. Also asked her to increase lisinopril to 10mg daily, and monitor BP on a regular basis. Stacy Auguste MD [id number],C, W eight loss advised Stacy Auguste MD [id number],C, C ontinues on replacement therapy. Stacy Auguste MD [id number],C, C ontinues on Rosuvastatin. We aim for an LDL <70. Stacy Auguste MD [id number],C, C ontinues on Metformin. Stacy Auguste MD [id number],C, H er echo 08/24/2020 showed normal LV function. EF 60%. Nuclear stress test 08/24/2020 showed normal perfusion. The patient has been reassured. Weight reduction advised. Stacy Auguste MD [id number],C, B P today elevated at 150/83. Advised she monitor at home. Stacy Auguste MD [id number],C, A bdominal US 06/2020 showed nodular liver contour suggesting cirrhosis. Follows with HOMIC[employer] SQU[employer] COMMANDING OFFICER at [facility] whose name she cannot recall. Will obtain bloodwork from PCP. Stacy Auguste MD [id number],C,T he patient is using CPAP on a regular basis. The patient has been benefiting from therapy and should continue use. Stacy Auguste MD [id number],C,C ontinues on Metformin. Stacy Auguste MD [id number],C,C ontinues on Rosuvastatin. We aim for an LDL <70. Stacy Auguste MD [id number],C,B P control is satisfactory. Stacy Auguste MD [id number],C,H er recent echo 08/24/2020 showed normal LV [...] nodular liver contour suggesting cirrhosis. Follows with HOMICIDE SQUAD COMMANDING OFFICER at [facility] whose name she cannot recall. Will [...] Cardiology New Patient :Weight l oss advised. Stcay Auguste MD Cardiology New Patie nt :She [...]
--- OUTSIDE RECORDS SUMMARY | 2024-06-14 14:07 | XMS_ITS | Data Portability ---
Author Organization [place] [facility], Main Office Address [address] [place] [address] Care Team Providers Care Painting Worker Name Role Phone ADITYA JOYCE Primary Care Provider [phone] ADITYA JOYCE Referring Provider FRAN WARNER Byproducts Extractor PABLO HEART Integration Manager ANASTASIA GANDHI Chemical Production Engineer [phone] Assessment Encounter Date Assessment Date Assessment LastModified [...] available Lab lipid panel, serum [address] (Lab), [address] [place] [address], [address], 03/31/2024 16:09:44 CMP, serum or plasma 2024 025 [facility] (Lab), [address] [place] [address], [address], 04/27/2024 16:18:35 CBC w/ auto diff 2024 025 [facility] (Lab), [address] [place] [address] [address], [place], [address], 04/27/2024 16:18:35 TSH + free T4, serum [address] (Lab), [address] [place] [address] [address], [place], [address], 03/31/2024 16:09:44 vitami n D3, 25-hyd earnest, serum [address] (Lab), [address] [place] [address] [address], [place], [address], 03/31/2024 16:09:44 microa lbumin , urine [address] (Lab), [address], [place], [address], 03/31/2024 16:09:43 glycoh emoglo bin, total, blood [address] (Lab), [address], [place], [address], 03/31/2024 16:09:43 lipid panel, serum 2023 024 [email or web address] Not available 12/29/2023 12:29:21 CMP, serum or plasma 2023 024 ROMEO Not available 03/24/2024 13:23:16 CBC w/ auto diff 2023 024 [email or web address] Not available 12/29/2023 12:29:22 TSH + free T4, serum 2023 024 [email or web address] Not available 12/29/2023 12:29:22 vitami n D3, 25-hyd earnest, serum 2023 024 [email or web address] Not available 12/29/2023 12:29:22 microa lbumin , urine 2023 024 ROMEO Not available 03/27/2024 12:21:26 glycoh emoglo bin, total, blood 2023 024 [email or web address] Not available 12/29/2023 12:29:20 lipid panel, serum 2023 024 [email or web address] Not available 05/27/2024 08:37:36 CMP, serum or plasma 2023 024 [email or web address] Not available 05/27/2024 08:37:36 CBC w/ auto diff 2023 024 ROMEO Not available 12/10/2023 13:17:09 TSH + free T4, serum 2023 024 [email or web address] Not available 05/27/2024 08:37:36 vitami n D3, 25-hyd earnest, serum 2023 024 [email or web address] Not available 06/02/2024 16:21:13 microa lbumin , urine 2023 024 [email or web address] Not available 05/27/2024 08:37:36 glycoh emoglo bin, total, blood 2023 024 [email or web address] Not available 05/27/2024 08:37:36 lipid panel, serum 2023 024 ROMEO Not available 08/19/2023 13:17:40 CMP, serum or plasma 2023 024 ROMEO Not available 08/19/2023 13:17:47 CBC w/ auto diff 2023 024 ROMEO Not available 08/19/2023 13:10:19 TSH + free T4, serum 2023 024 ROMEO Not available 08/20/2023 10:02:42 vitami n D3, 25-hyd earnest, serum 2023 024 Not available 09/02/2023 09:57:58 microa lbumin , [...] TSH + free T4, serum 2023 024 [email or web address] Not available 12/22/2023 14:36:51 urinal ysis, dipsti ck 2023 024 [email or web address] [address], [address], [place], [address], 06/26/2023 08:59:57 microa lbumin , urine 2023 024 ROMEO Not available 08/20/2023 10:02:41 glycoh emoglo bin, total, blood 2023 024 [email or web address] Not available 12/22/2023 14:36:50 Referral gastro entero logist referr al 2024 025 [email or web address] Anastasia Gandhi CHILD CARE DEVELOPMENT SPECIALIST, [address] [facility], [place], [address], 03/31/2024 15:29:31 orthop edic surgeo n referr al 2024 025 [email or web address] Rich Leyva MD, [address], [address], [place], [address], 03/31/2024 15:30:20 pulmon ologis t referr al 2024 025 [email or web address] Fran Warner MD, [address] [facility], [place], [address], 03/31/2024 15:29:28 hemato logist referr al 2024 025 [email or web address] Pablo Heart MD, [address], [place], [address], 03/31/2024 15:29:29 gastro entero logist referr al 2024 025 [email or web address] Kylah Davis MD, [address] [facility], [address], [place], [address], 03/31/2024 15:29:32 podiat rist referr al 2024 025 [email or web address] Inocencio Angeles Jr DPM, [address], [address], [place], [address], 03/31/2024 15:30:19 pulmon ologis t referr al 2023 024 [email or web address] Fran Warner MD, [address] [facility], [place], [address], 12/31/2023 14:37:10 nephro logist referr al 2023 024 [email or web address] Gael Banks MD (Nephrology, [address], [place], [address], 12/31/2023 14:40:00 hemato logist referr al 2023 024 [email or web address] Pablo Heart MD, [address], [place], [address], 12/31/2023 14:38:19 gastro entero logist referr al 2023 024 [email or web address] Anastasia Gandhi CHILD CARE DEVELOPMENT SPECIALIST, [address] [facility], [place], [address], 12/31/2023 14:38:20 orthop edic surgeo n referr al 2023 024 Kobe Pelaez PA, [address], [place], [address], 12/31/2023 14:40:00 gastro entero logist referr al 2023 024 [email or web address] Sharonda Collazo MD, [address], [address], [place], [address], 12/31/2023 14:39:59 podiat rist referr al 2023 024 [email or web address] Inocencio Angeles Jr DPM, [address], [address], [place], [address], 12/31/2023 14:39:58 gastro entero logist referr al 2023 024 [email or web address] Anastasia Edu Gandhi CHILD CARE DEVELOPMENT SPECIALIST, [address], [place], [address], 05/24/2024 09:17:51 nephro logist referr al 2023 024 [email or web address] Gael Banks MD (Nephrology, [address], [address], [place], [address], 05/24/2024 09:17:53 orthop edic surgeo n referr al 2023 024 [email or web address] Kobe Pelaez PA, [address], [place], [address], 05/24/2024 09:17:50 pulmon ologis t referr al 2023 024 [email or web address] Fran Warner MD, [address] [place], [address], 12/22/2023 14:38:12 hemato logist referr al 2023 024 [email or web address] Pablo Heart MD, [address], [place], [address], 12/22/2023 14:38:21 gastro entero logist referr al 2023 024 [email or web address] Sharonda Collazo MD, [address], [address], [place], [address], 05/24/2024 09:17:50 podiat rist referr al 2023 024 [email or web address] Inocencio Angeles Jr DPM, [address], [address], [place], [address], 05/24/2024 09:17:48 gastro entero logist referr al 2023 024 [email or web address] Anastasia Gandhi CHILD CARE DEVELOPMENT SPECIALIST, [address] [facility], [place], [address], 02/19/2024 08:33:14 orthop edic surgeo n referr al 2023 024 [email or web address] Kobe Pelaez PA, [address], [place], [address], 02/19/2024 08:33:13 pulmon ologis t referr al 2023 024 Fran Warner MD, [address] [facility], [place], [address], 09/23/2023 17:33:30 hemato logist referr al 2023 024 [email or web address] Pablo Heart MD, [address], [place], [address], 09/23/2023 17:33:59 gastro entero logist referr al 2023 024 [email or web address] Sharonda Collazo MD, [address], [place], [address], 02/23/2024 08:34:01 podiat rist referr al 2023 024 Inocencio Angeles Jr DPM, [address], [address], [place], [address], 02/23/2024 08:34:00 orthop edic surgeo n referr al 2023 024 [email or web address] Kobe MONCADA, [address], [place], [address], 12/22/2023 14:37:52 pulmon ologis t referr al 2023 024 Fran Warner MD, [address] [facility], [place], [address], 07/23/2023 08:17:13 hemato logist referr al 2023 024 [email or web address] Pablo Heart MD, [address], [place], [address], 07/23/2023 08:17:14 gastro entero logist referr al 2023 024 [email or web address] Sharonda Collazo MD, [address] [facility], [address], [place], [address], 12/22/2023 14:37:51 podiat rist referr al 2023 024 [email or web address] Blaine Faustin DPM, [address] [facility], [address], [place], [address], 12/22/2023 14:37:51 Procedures None record ed. Surgeries None record ed. Imaging DEXA, axial skelet on - Please call manny ordonez to suzy clement. 2024 025 [facility] ([facility] Sched[facility]), [address] [facility], [place], [address], 04/07/2024 10:02:38 DEXA, axial skelet on 2023 024 [email or web address] Not available 12/30/2023 16:59:39 DEXA, axial skelet on 2023 024 Not available 06/10/2024 11:22:46 Medication Orders venlaf axine ER 75 mg capsul e,exte nded releas e 24 hr 2024 [id number] [address] [facility] [place], [place], [id number], 03/31/2024 14:48:57 venlaf axine ER 75 mg capsul e,exte nded releas e 24 hr 2023 [facility] #[id number], [address], [place], [place], [id number], 12/29/2023 12:15:54 Singul air 10 mg tablet 2023 [facility] #[id number], [address], [place], [place], [id number], 11/24/2023 15:25:05 Ozempi c 1 mg/dos e (4 mg/3 mL) subcut aneous pen inject or 2023 [facility] #[id number], [address] , [place], [place], [id number], 11/24/2023 15:25:03 cyclob enzapr ine 10 mg tablet [email or web address] [facility], [address], [place], [place], [id number], 12/29/2023 11:05:50 Patient TargetsNo targets recorded. Patient Instructions Encounter Date Encounter Id Patient Instructions Last Modified By Organization Details Last Modified Time 08/18/2023 [id number] dementia rating scale-2* [email or web address] Not available 08/18/2023 11:58:33 alcohol misuse* Not available 08/18/2023 11:58:49 depression screening* [email or web address] Not available 08/18/2023 11:59:07 Timed Up and Go test (TUG)* [email or web address] Not available 08/18/2023 11:59:25 multi-dimensiona l health assessment questionnaire* [email or web address] Not available 08/18/2023 11:58:12 Personalized a lt Plan and Screening Recommendations Advance Directives [...] Negative Active diagnosis, Continue current treatment plan [email or web address] Not available 08/18/2023 12:02:44 Reason for Referral Freedom Of Information Officer Referral for Type 2 diabetes mellitus without complication Referring Physician: Aditya Joyce Internal Medicine, Encounter Date: 06/25/2023 Byproducts Extractor Referral for O bstructive sleep apnea syndrome Referring Physician: Aditya Joyce Internal Medicine, Encounter Date: 06/25/2023 Referring Physician: Aditya Joyce Internal Medicine, Encounter Date: 06/25/2023 Chemical Production Engineer Referral for Screening for malignant neoplasm of colon Referring Physician: Kyaw Mccann Medicine, Encounter Date: 06/25/2023 Orthopedic Surgeon Referral for Osteoarthritis of bilateral hip joints Referring Physician: MurtKyaw Rosario Medicine, Encounter Date: 06/25/2023 Freedom Of Information Officer Referral for Type 2 diabetes mellitus without complication Referring Physician: Kyaw Mccann, Encounter Date: 08/18/2023 Byproducts Extractor Referral for O bstructive sleep apnea syndrome Referring Physician: Kyaw Mccann, Encounter Date: 08/18/2023 Referring Physician: Kyaw Mccann, Encounter Date: 08/18/2023 Chemical Production Engineer Referral for Screening for malignant neoplasm of colon Referring Physician: Kyaw Mccann, Encounter Date: 08/18/2023 Orthopedic Surgeon Referral for Osteoarthritis of bilateral hip joints Referring Physician: Kyaw Mccann, Encounter Date: 08/18/2023 Chemical Production Engineer Referral for Cirrhosis of liver Referring Physician: Kyaw Mccann, Encounter Date: 08/18/2023 Freedom Of Information Officer Referral for Type 2 diabetes mellitus without complication Referring Physician: Kyaw Mccann, Encounter Date: 11/24/2023 Byproducts Extractor Referral for O bstructive sleep apnea syndrome Referring Physician: Kyaw Mccann, Encounter Date: 11/24/2023 Referring Physician: Kyaw Mccann, Encounter Date: 11/24/2023 Chemical Production Engineer Referral for Screening for malignant neoplasm of colon Referring Physician: Kyaw Mccann, Encounter Date: 11/24/2023 Orthopedic Surgeon Referral for Osteoarthritis of bilateral hip joints Referring Physician: Kyaw Mccann, Encounter Date: 11/24/2023 Chemical Production Engineer Referral for Cirrhosis of liver Referring Physician: Kyaw Mccann, Encounter Date: 11/24/2023 Associate Dean Of Students 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 Referring Physician: Aditya Joyce Internal Medicine, Encounter Date: 11/24/2023 Freedom Of Information Officer Referral for Type 2 diabetes mellitus without complication Referring Physician: Aditya Joyce Internal Medicine, Encounter Date: 12/29/2023 Byproducts Extractor Referral for O bstructive sleep apnea syndrome Referring Physician: Aditya Joyce Internal Medicine, Encounter Date: 12/29/2023 Referring Physician: Aditya Joyce Internal Medicine, Encounter Date: 12/29/2023 Chemical Production Engineer Referral for Screening for malignant neoplasm of colon Referring Physician: Kyaw Mccann Medicine, Encounter Date: 12/29/2023 Orthopedic Surgeon Referral for Osteoarthritis of bilateral hip joints Referring Physician: Aditya Joyce Internal Medicine, Encounter Date: 12/29/2023 Chemical Production Engineer Referral for Cirrhosis of liver Referring Physician: Kyaw Mccann Medicine, Encounter Date: 12/29/2023 Associate Dean Of Students 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 Referring Physician: Kyaw Mccann Medicine, Encounter Date: 12/29/2023 Freedom Of Information Officer Referral for Type 2 diabetes mellitus without complication Referring Physician: Aditya Joyce Internal Medicine, Encounter Date: 03/31/2024 Byproducts Extractor Referral for O bstructive sleep apnea syndrome Referring Physician: Kyaw Mccann Medicine, Encounter Date: 03/31/2024 Referring Physician: Kyaw Mccann Medicine, Encounter Date: 03/31/2024 Orthopedic Surgeon Referral for Osteoarthritis of bilateral hip joints Referring Physician: Kyaw Mccann Medicine, Encounter Date: 03/31/2024 Chemical Production Engineer Referral for Cirrhosis of liver Referring Physician: Aditya Joyce, Internal Medicine, Encounter Date: 03/31/2024 Chemical Production Engineer Referral for Screening for malignant neoplasm of colon Referring Physician: Aditya Joyce, Internal Medicine, Encounter Date: 03/31/2024 Results Created Date Observation Date Name Description Value Unit Range Abnormal Flag Note LastModifiedBy Organization Detail LastModifiedTime 06/25/19 24 06/25/2023 urina lysis , dipst ick Leukocytes (reference range: negative georgina/ l) Negati ve Not Available [facility] Internal Med [facility] [address] [facility] [address], [place], [address], 06/25/2023 16:21:08 06/25/19 24 06/25/2023 urina lysis , dipst ick Nitrite (reference rage: negative mg/dl) negati ve Not Available [facility] Internal Med [facility] [address] [facility] [address], [place], [address], 06/25/2023 16:21:08 06/25/19 24 06/25/2023 urina lysis , dipst ick Urobilinogen (reference range: 0.2-1 mg/dl) 0.2 Not Available [facility] Internal [facility] [address] [facility] [address], [place], [address], 06/25/2023 16:21:08 06/25/19 24 06/25/2023 urina lysis , dipst ick Protein (reference range: negative mg/dl) Negati ve Not Available [facility] Internal Med [facility] [address] [facility] [address], [place], [address], 06/25/2023 16:21:08 06/25/19 24 06/25/2023 urina lysis , dipst ick pH (reference range: 5-7) 5.0 Not Available [facility] Internal Med [facility] [address], [place], [address], 06/25/2023 16:21:08 06/25/19 24 06/25/2023 urina lysis , dipst ick Blood (reference range: negative Thor/ l) Negati ve Not Available [facility] Internal [facility] [address], [place], [address], 06/25/2023 16:21:08 06/25/19 24 06/25/2023 urina lysis , dipst ick Specific [place] (reference range: 1.005-1.030) 1.015 Not Available [facility] Internal [facility] [address], [place], [address], 06/25/2023 16:21:08 06/25/19 24 06/25/2023 urina lysis , dipst ick Ketone (reference range: negative mg/dl) Negati ve Not Available [facility] Internal [facility] [address], [place], [address], 06/25/2023 16:21:08 06/25/19 24 06/25/2023 urina lysis , dipst ick Bilirubin (reference range: negative mg/dl) Negati ve Not Available [facility] Internal [facility] [address], [place], [address], 06/25/2023 16:21:08 06/25/19 24 06/25/2023 urina lysis , dipst ick Glucose (reference range: negative mg/dl) Negati ve Not Available [facility] Internal Med [facility] [address], [place], [address], 06/25/2023 16:21:08 06/25/19 24 06/25/2023 urina lysis , dipst ick Appearance Clear Not Available [facility] Internal Med [facility] [address], [place], [address], 06/25/2023 16:21:08 06/25/19 24 06/25/2023 urina lysis , dipst ick Color Yellow Not Available [email or web address] [address], [place], [address], 06/25/2023 16:21:08 08/19/19 24 08/19/2023 CBC/C OMPLE TE BLD COUNT W/DIF F white blood cells 3.8 x10'3 /uL 4.2-10 .8 low Not Available [facility] (Lab) [address] [place], [address], 08/19/2023 13:10:18 08/19/19 24 08/19/2023 CBC/C OMPLE TE BLD COUNT W/DIF F red blood cells 4.28 x10'6 /uL 3.80-5 .20 Not Available [facility] (Lab) [address] [place], [address], 08/19/2023 13:10:18 08/19/19 24 08/19/2023 CBC/C OMPLE TE BLD COUNT W/DIF F hemoglobin 13.6 g/dL 12.0-1 5.6 Not Available [facility] (Lab) [address] [place], [address], 08/19/2023 13:10:18 08/19/19 24 08/19/2023 CBC/C OMPLE TE BLD COUNT W/DIF F hematocrit 43.3 % 35.7-4 5.7 Not Available [facility] (Lab) [address] [place], [address], 08/19/2023 13:10:18 08/19/19 24 08/19/2023 CBC/C OMPLE TE BLD COUNT W/DIF F mean red cell volume 101.2 fL 82.0-9 9.0 high Not Available [facility] (Lab) [address] [place], [address], 08/19/2023 13:10:18 08/19/19 24 08/19/2023 CBC/C OMPLE TE BLD COUNT W/DIF F mean red cell hemoglobin 31.8 pg 27.0-3 3.0 Not Available [facility] (Lab) [address] [place], [address], 08/19/2023 13:10:18 08/19/19 24 08/19/2023 CBC/C OMPLE TE BLD COUNT W/DIF F mean RBC HGB concentratio n 31.4 g/dL 31.0-3 6.0 Not Available [facility] (Lab) [address] [place], [address], 08/19/2023 13:10:18 08/19/19 24 08/19/2023 CBC/C OMPLE TE BLD COUNT W/DIF F red cell distribution width 14.4 % 11.8-1 5.5 Not Available [facility] (Lab) [address] [place], [address], 08/19/2023 13:10:18 08/19/19 24 08/19/2023 CBC/C OMPLE TE BLD COUNT W/DIF F platelets 149 x10'3 /uL 150-40 0 low Not Available [facility] (Lab) [address] [place], [address], 08/19/2023 13:10:18 08/19/19 24 08/19/2023 CBC/C OMPLE TE BLD COUNT W/DIF F mean platelet volume 9.8 fL 9.0-12 .4 Not Available [facility] (Lab) [address] [place], [address], 08/19/2023 13:10:18 08/19/19 24 08/19/2023 CBC/C OMPLE TE BLD COUNT W/DIF F neutrophils 54.0 % 39.0-7 2.0 Not Available [facility] (Lab) [address] [place], [address], 08/19/2023 13:10:18 08/19/19 24 08/19/2023 CBC/C OMPLE TE BLD COUNT W/DIF F lymphocytes 30.4 % 16.0-4 7.0 Not Available [facility] (Lab) [address] [place], [address], 08/19/2023 13:10:18 08/19/19 24 08/19/2023 CBC/C OMPLE TE BLD COUNT W/DIF F monocytes 9.8 % 5.0-12 .0 Not Available [facility] (Lab) [address] [place], [address], 08/19/2023 13:10:18 08/19/19 24 08/19/2023 CBC/C OMPLE TE BLD COUNT W/DIF F eosinophils 4.5 % 1.0-7. 0 Not Available [facility] (Lab) [address] [place], [address], 08/19/2023 13:10:18 08/19/19 24 08/19/2023 CBC/C OMPLE TE BLD COUNT W/DIF F basophils 0.8 % 0.0-2. 0 Not Available [facility] (Lab) [address] [place], [address], 08/19/2023 13:10:18 08/19/19 24 08/19/2023 CBC/C OMPLE TE BLD COUNT W/DIF F immature granulocytes 0.5 % 0.00-0 .50 Not Available [facility] (Lab) [address] [place], [address], 08/19/2023 13:10:18 08/19/19 24 08/19/2023 CBC/C OMPLE TE BLD COUNT W/DIF F neutrophils, absolute count 2.04 x10'3 /uL 1.5-8. 0 Not Available [facility] (Lab) [address] [place], [address], 08/19/2023 13:10:18 08/19/19 24 08/19/2023 CBC/C OMPLE TE BLD COUNT W/DIF F lymphocytes, absolute count 1.15 x10'3 /uL 1.07-3 .43 Not Available [facility] (Lab) [address] [place], [address], 08/19/2023 13:10:18 08/19/1908/19/2023 CBC/C OMPLE TE BLD COUNT W/DIF F monocytes, absolute count 0.37 x10'3 /uL 0.29-0 .99 Not Available [facility] (Lab) [address] [place], [address], 08/19/2023 13:10:18 08/19/19 24 08/19/2023 CBC/C OMPLE TE BLD COUNT W/DIF F eosinophils, absolute count 0.17 x10'3 /uL 0.02-0 .53 Not Available [facility] (Lab) [address] [place], [address], 08/19/2023 13:10:18 08/19/19 24 08/19/2023 CBC/C OMPLE TE BLD COUNT W/DIF F basophils, absolute count 0.03 x10'3 /uL 0.01-0 .08 Not Available [facility] (Lab) [address] [place], [address], 08/19/2023 13:10:18 08/19/1908/19/2023 CBC/C OMPLE TE BLD COUNT W/DIF F immature granulocytes ,absolute 0.02 x10'3 /uL 0.00-0 .05 Not Available [facility] (Lab) [address] [place], [address], 08/19/2023 13:10:18 08/19/19 24 08/19/2023 CBC/C OMPLE TE BLD COUNT W/DIF F nucleated red blood cells 0.0 % -0 Not Available [facility] (Lab) [address] [place], [address], 08/19/2023 13:10:18 08/19/19 24 08/19/2023 CBC/C OMPLE TE BLD COUNT W/DIF F NRBC# 0.00 x10'3 /uL Not Available [facility] (Lab) [address] [place], [address], 08/19/2023 13:10:18 08/19/19 24 08/19/2023 LIPID PANEL cholesterol 137 mg/dL 140-19 9 low NIH VEENA NSUS RECOM MENDA TION FOR NISA STERO L: ADULT CHILD LOW RISK: <200 <170 BORDE RLINE : <200- 239 ----- HIGH RISK: >240 >200 Not Available [facility] (Lab) [address] [place], [address], 08/19/2023 13:17:40 08/19/19 24 08/19/2023 LIPID PANEL triglyceride s 136 mg/dL 0-150 NIH VEENA NSUS REPOR T RECOM MENDA TION FOR TRIGL YCERI NYDIA: ADULT CHILD LOW RISK: <150 ----- BODER LINE: 150-1 99 ----- HIGH RISK: >200 ----- Not Available [facility] (Lab) [address] [place], [address], 08/19/2023 13:17:40 08/19/19 24 08/19/2023 LIPID PANEL HDL cholesterol 65 mg/dL 40- Not Available [facility] (Lab) [address] [place], [address], 08/19/2023 13:17:40 08/19/19 24 08/19/2023 LIPID PANEL [...] LDL RESUL T WILL NOT BE REPOR HALI. Not Available [facility] (Lab) [address] [place], [address], 08/19/2023 13:17:40 08/19/19 24 08/19/2023 COMPR EHENS FLY METAB OLIC PANEL sodium 137 mmol/ L 137-14 5 Not Available [facility] (Lab) [address] [place], [address], 08/19/2023 13:17:46 08/19/19 24 08/19/2023 COMPR EHENS FLY METAB OLIC PANEL potassium 4.9 mmol/ L 3.5-5. 1 Not Available [facility] (Lab) [address] [place], [address], 08/19/2023 13:17:46 08/19/19 24 08/19/2023 COMPR EHENS FLY METAB OLIC PANEL chloride 108 mmol/ L 98-107 high Not Available [facility] (Lab) [address] [place], [address], 08/19/2023 13:17:46 08/19/19 24 08/19/2023 COMPR EHENS FLY METAB OLIC PANEL carbon dioxide 29 mmol/ L 22-30 Not Available [facility] (Lab) [address] [place], [address], 08/19/2023 13:17:46 08/19/19 24 08/19/2023 COMPR EHENS FLY METAB OLIC PANEL anion gap 4.9 mmol/ L 14-22 low Not Available [facility] (Lab) [address] [place], [address], 08/19/2023 13:17:46 08/19/19 24 08/19/2023 COMPR EHENS FLY METAB OLIC PANEL glucose 102 mg/dL 70-99 high Not Available [facility] (Lab) [address] [place], [address], 08/19/2023 13:17:46 08/19/19 24 08/19/2023 COMPR EHENS FLY METAB OLIC PANEL BUN 15 mg/dL 8-19 Not Available [facility] (Lab) [address] [place], [address], 08/19/2023 13:17:46 08/19/19 24 08/19/2023 COMPR EHENS FLY METAB OLIC PANEL creatinine 1.01 mg/dL 0.66-1 .25 Not Available [facility] (Lab) [address] [place], [address], 08/19/2023 13:17:46 08/19/19 24 08/19/2023 COMPR EHENS FLY METAB OLIC PANEL GFR 53 Refer ence Range : [place] ge GFR Healt hy Adult : >60 [...] calcu lator is avail able on the [facility] websi te: https :[email or web address] toth.o tarik/pr ofess ional s/kdo qi/gf r_cal culat or Not Available [facility] (Lab) [address] [place], [address], 08/19/2023 13:17:46 08/19/19 24 08/19/2023 COMPR EHENS FLY METAB OLIC PANEL alkaline phosphatase 65 U/L 38-126 Not Available [facility] (Lab) [address] [place], [address], 08/19/2023 13:17:46 08/19/19 24 08/19/2023 COMPR EHENS FLY METAB OLIC PANEL alanine aminotransfe rase 36 U/L 0-35 high Not Available [facility] (Lab) [address] [place], [address], 08/19/2023 13:17:46 08/19/19 24 08/19/2023 COMPR EHENS FLY METAB OLIC PANEL aspartate aminotransfe rase 44 U/L 15-37 high Not Available [facility] (Lab) [address] [place], [address], 08/19/2023 13:17:46 08/19/19 24 08/19/2023 COMPR EHENS FLY METAB OLIC PANEL bilirubin, total 0.50 mg/dL 0.20-1 .30 Not Available [facility] (Lab) [address] [place], [address], 08/19/2023 13:17:46 08/19/19 24 08/19/2023 COMPR EHENS FLY METAB OLIC PANEL calcium 9.0 mg/dL 8.4-10 .2 Not Available [facility] (Lab) [address] [place], [address], 08/19/2023 13:17:46 08/19/19 24 08/19/2023 COMPR EHENS FLY METAB OLIC PANEL total protein 6.8 g/dL 6.3-8. 2 Not Available [facility] (Lab) [address] [place], [address], 08/19/2023 13:17:46 08/19/19 24 08/19/2023 COMPR EHENS FLY METAB OLIC PANEL albumin 3.9 g/dL 3.0-4. 4 Not Available [facility] (Lab) [address] [place], [address], 08/19/2023 13:17:46 08/19/19 24 08/19/2023 COMPR EHENS FLY METAB OLIC PANEL globulin 2.9 g/dL 2.6-4. 2 Not Available [facility] (Lab) [address] [place], [address], 08/19/2023 13:17:46 08/19/19 24 08/19/2023 COMPR EHENS FLY METAB OLIC PANEL A/G ratio 1.3 ratio 1.0-2. 0 Not Available [facility] (Lab) [address] [place], [address], 08/19/2023 13:17:46 08/19/19 24 08/19/2023 T4 FREE free T4 0.88 NG/dL 0.78-2 .19 Not Available [facility] (Lab) [address] [place], [address], 08/19/2023 13:29:08 08/19/19 24 08/19/2023 TSH thyroid-stim ulating hormone 10.500 uIU/m L 0.465- 4.680 high Not Available [facility] (Lab) [address] [place], [address], 08/19/2023 13:29:25 08/19/19 24 08/19/2023 HEMOG LOBIN A1C HA1C 5.8 % 4.0-6. 0 Diabe nakul Albae marisela Crite thomas: <5.7% Consi stent with absen ce of diabe nakul 5.7-6 .4% Consi stent with incre ased risk for diabe nakul (pred iabet es) >OR=6 .5% Consi stent with diabe nakul REFER ENCE: Diabe nakul Care 2016, 39(Kovacs ppl.1 ):s13 -s22 Not Available [facility] (Lab) [address] [place], [address], 08/19/2023 14:57:00 08/19/19 24 08/19/2023 MICRO ALBUM IN RANDO M URINE microalbumin , urine <6.0 mg/L 0.0-16 .6 Not Available [facility] (Lab) [address] [place], [address], 08/19/2023 15:30:50 08/19/19 24 08/25/2023 25-HY DROXY VITAM IN D LCMS D2+D3 25-hydroxy, vitamin D 34 NG/mL Refer ence Range : All Ages: Targe t level s 30 - 100 Not Available [facility] (Lab) [address] [place], [address], 08/25/2023 21:07:27 08/19/19 24 08/25/2023 25-HY DROXY VITAM IN D LCMS D2+D3 25-hydroxy, vitamin D-2 10 NG/mL This test was giorgio luis and its perfo rmanc e benjamin cteri stics deter mined by [facility]. It has not been clear ed or appro parmjit by the Food and Drug Admin istra tion. Not Available [facility] (Lab) [address] [place], [address], 08/25/2023 21:07:27 08/19/19 24 08/25/2023 25-HY DROXY VITAM IN D LCMS D2+D3 25-hydroxy, vitamin D-3 24 NG/mL This test was tiffanyel allied and its perfo rmanc e benjamin bennettri stics deter mined by [facility]. It has not been clear ed or appro parmjit by the Food and Drug Admin istra tion. Perfo rmed at: [facility] [address] [place], [place] [id number] Lab Direc tor: Luis Armando manrique MD, Phone : [phone] Not Available [facility] (Lab) [address] [place], [address], 08/25/2023 21:07:27 11/21/1911/21/2023 COMPR EHENS FLY METAB OLIC PANEL sodium 139 mmol/ L 137-14 5 Not Available [facility] (Lab) [address] [place], [address], 11/21/2023 18:30:15 11/21/19 24 11/21/2023 COMPR EHENS FLY METAB OLIC PANEL potassium 5.0 mmol/ L 3.5-5. 1 Not Available [facility] (Lab) [address] [place], [address], 11/21/2023 18:30:15 11/21/19 24 11/21/2023 COMPR EHENS LFY METAB OLIC PANEL chloride 104 mmol/ L 98-107 Not Available [facility] (Lab) [address] [place], [address], 11/21/2023 18:30:15 11/21/19 24 11/21/2023 COMPR EHENS FLY METAB OLIC PANEL carbon dioxide 27 mmol/ L 22-30 Not Available [facility] (Lab) [address] [place], [address], 11/21/2023 18:30:15 11/21/19 24 11/21/2023 COMPR EHENS FLY METAB OLIC PANEL anion gap 13.0 mmol/ L 14-22 low Not Available [facility] (Lab) [address] [place], [address], 11/21/2023 18:30:15 11/21/19 24 11/21/2023 COMPR EHENS FLY METAB OLIC PANEL glucose 107 mg/dL 70-99 high Not Available [facility] (Lab) [address] [place], [address], 11/21/2023 18:30:15 11/21/19 24 11/21/2023 COMPR EHENS FLY METAB OLIC PANEL BUN 25 mg/dL 8-19 high Not Available [facility] (Lab) [address] [place], [address], 11/21/2023 18:30:15 11/21/19 24 11/21/2023 COMPR EHENS FLY METAB OLIC PANEL creatinine 1.03 mg/dL 0.66-1 .25 Not Available [facility] (Lab) [address] [place], [address], 11/21/2023 18:30:15 11/21/19 24 11/21/2023 COMPR EHENS FLY METAB OLIC PANEL GFR 52 Refer ence Range : [place] ge GFR Healt hy Adult : >60 [...] calcu lator is avail able on the [facility] websi te: https ://albina [email or web address] [email or web address] rg/pr ofess ional s/kdo qi/gf r_cal culat or Not Available [facility] (Lab) [address] [place], [address], 11/21/2023 18:30:15 11/21/19 24 11/21/2023 COMPR EHENS FLY METAB OLIC PANEL alkaline phosphatase 65 U/L 38-126 Not Available [facility] (Lab) [address] [place], [address], 11/21/2023 18:30:15 11/21/19 24 11/21/2023 COMPR EHENS FLY METAB OLIC PANEL alanine aminotransfe rase 50 U/L 0-35 high Not Available [facility] (Lab) [address] [place], [address], 11/21/2023 18:30:15 11/21/19 24 11/21/2023 COMPR EHENS FLY METAB OLIC PANEL aspartate aminotransfe rase 55 U/L 15-37 high Not Available [facility] (Lab) [address] [place], [address], 11/21/2023 18:30:15 11/21/19 24 11/21/2023 COMPR EHENS FLY METAB OLIC PANEL bilirubin, total 0.40 mg/dL 0.20-1 .30 Not Available [facility] (Lab) [address] [place], [address], 11/21/2023 18:30:15 11/21/19 24 11/21/2023 COMPR EHENS FLY METAB OLIC PANEL calcium 9.8 mg/dL 8.4-10 .2 Not Available [facility] (Lab) [address] [place], [address], 11/21/2023 18:30:15 11/21/1911/21/2023 COMPR EHENS FLY METAB OLIC PANEL total protein 7.1 g/dL 6.3-8. 2 Not Available [facility] (Lab) [address] [place], [address], 11/21/2023 18:30:15 11/21/1911/21/2023 COMPR EHENS FLY METAB OLIC PANEL albumin 4.1 g/dL 3.0-4. 4 Not Available [facility] (Lab) [address] [place], [address], 11/21/2023 18:30:15 11/21/19 24 11/21/2023 COMPR EHENS FLY METAB OLIC PANEL globulin 3.0 g/dL 2.6-4. 2 Not Available [facility] (Lab) [address] [place], [address], 11/21/2023 18:30:15 11/21/1911/21/2023 COMPR EHENS FLY METAB OLIC PANEL A/G ratio 1.4 ratio 1.0-2. 0 Not Available [facility] (Lab) [address] [place], [address], 11/21/2023 18:30:15 11/21/1911/21/2023 LIPID PANEL cholesterol 143 mg/dL 140-19 9 NIH VEENA NSUS RECOM MENDA TION FOR NISA STERO L: ADULT CHILD LOW RISK: <200 <170 BORDE RLINE : <200- 239 ----- HIGH RISK: >240 >200 Not Available [facility] (Lab) [address] [place], [address], 11/21/2023 18:30:19 11/21/19 24 11/21/2023 LIPID PANEL triglyceride s 112 mg/dL 0-150 NIH VEENA NSUS REPOR T RECOM MENDA TION FOR TRIGL YCERI NYDIA: ADULT CHILD LOW RISK: <150 ----- BODER LINE: 150-1 99 ----- HIGH RISK: >200 ----- Not Available [facility] (Lab) [address] [place], [address], 11/21/2023 18:30:19 11/21/1911/21/2023 LIPID PANEL HDL cholesterol 79 mg/dL 40- Not Available [facility] (Lab) [address] [place], [address], 11/21/2023 18:30:19 11/21/1911/21/2023 LIPID PANEL LDL cholesterol, [...] LDL RESUL T WILL NOT BE REPOR HALI. Not Available [facility] (Lab) [address] [place], [address], 11/21/2023 18:30:19 11/21/19 24 11/21/2023 T4 FREE free T4 1.04 NG/dL 0.78-2 .19 Not Available [facility] (Lab) [address] [place], [address], 11/21/2023 18:40:56 11/21/1911/21/2023 TSH thyroid-stim ulating hormone 7.700 uIU/m L 0.465- 4.680 high Not Available [facility] (Lab) [address] [place], [address], 11/21/2023 18:57:15 11/21/1911/21/2023 VITAM IN D 25-HY DROXY [id number] 47.6 NG/mL 30-100 Vitam in D Statu s: Defic ient: <20 ng/mL Insuf ficie nt: 20-29 ng/mL Suffi cient : 30-10 0 ng/mL Not Available [facility] (Lab) [address] [place], [address], 11/21/2023 19:04:57 11/21/1911/21/2023 CBC/C OMPLE TE BLD COUNT W/DIF F white blood cells 6.6 x10'3 /uL 4.2-10 .8 Not Available [facility] (Lab) [address] [place], [address], 11/21/2023 19:07:05 11/21/1911/21/2023 CBC/C OMPLE TE BLD COUNT W/DIF F red blood cells 4.54 x10'6 /uL 3.80-5 .20 Not Available [facility] (Lab) [address] [place], [address], 11/21/2023 19:07:05 11/21/1911/21/2023 CBC/C OMPLE TE BLD COUNT W/DIF F hemoglobin 14.6 g/dL 12.0-1 5.6 Not Available [facility] (Lab) [address] [place], [address], 11/21/2023 19:07:05 11/21/1911/21/2023 CBC/C OMPLE TE BLD COUNT W/DIF F hematocrit 45.9 % 35.7-4 5.7 high Not Available [facility] (Lab) [address] [place], [address], 11/21/2023 19:07:05 11/21/19 24 11/21/2023 CBC/C OMPLE TE BLD COUNT W/DIF F mean red cell volume 101.1 fL 82.0-9 9.0 high Not Available [facility] (Lab) [address] [place], [address], 11/21/2023 19:07:05 11/21/1911/21/2023 CBC/C OMPLE TE BLD COUNT W/DIF F mean red cell hemoglobin 32.2 pg 27.0-3 3.0 Not Available [facility] (Lab) [address] [place], [address], 11/21/2023 19:07:05 11/21/1911/21/2023 CBC/C OMPLE TE BLD COUNT W/DIF F mean RBC HGB concentratio n 31.8 g/dL 31.0-3 6.0 Not Available [facility] (Lab) [address] [place], [address], 11/21/2023 19:07:05 11/21/1911/21/2023 CBC/C OMPLE TE BLD COUNT W/DIF F red cell distribution width 14.2 % 11.8-1 5.5 Not Available [facility] (Lab) [address] [place], [address], 11/21/2023 19:07:05 11/21/1911/21/2023 CBC/C OMPLE TE BLD COUNT W/DIF F platelets 98 x10'3 /uL 150-40 0 low Not Available [facility] (Lab) [address] [place], [address], 11/21/2023 19:07:05 11/21/1911/21/2023 CBC/C OMPLE TE BLD COUNT W/DIF F neutrophils 53.1 % 39.0-7 2.0 Not Available [facility] (Lab) [address] [place], [address], 11/21/2023 19:07:05 11/21/19 24 11/21/2023 CBC/C OMPLE TE BLD COUNT W/DIF F lymphocytes 31.6 % 16.0-4 7.0 Not Available [facility] (Lab) [address] [place], [address], 11/21/2023 19:07:05 11/21/1911/21/2023 CBC/C OMPLE TE BLD COUNT W/DIF F monocytes 10.5 % 5.0-12 .0 Not Available [facility] (Lab) [address] [place], [address], 11/21/2023 19:07:05 11/21/1911/21/2023 CBC/C OMPLE TE BLD COUNT W/DIF F eosinophils 3.4 % 1.0-7. 0 Not Available [facility] (Lab) [address] [place], [address], 11/21/2023 19:07:05 11/21/1911/21/2023 CBC/C OMPLE TE BLD COUNT W/DIF F basophils 0.9 % 0.0-2. 0 Not Available [facility] (Lab) [address] [place], [address], 11/21/2023 19:07:05 11/21/1911/21/2023 CBC/C OMPLE TE BLD COUNT W/DIF F immature granulocytes 0.5 % 0.00-0 .50 Not Available [facility] (Lab) [address] [place], [address], 11/21/2023 19:07:05 11/21/1911/21/2023 CBC/C OMPLE TE BLD COUNT W/DIF F neutrophils, absolute count 3.49 x10'3 /uL 1.5-8. 0 Not Available [facility] (Lab) [address] [place], [address], 11/21/2023 19:07:05 11/21/19 24 11/21/2023 CBC/C OMPLE TE BLD COUNT W/DIF F lymphocytes, absolute count 2.07 x10'3 /uL 1.07-3 .43 Not Available [facility] (Lab) [address] [place], [address], 11/21/2023 19:07:05 11/21/1911/21/2023 CBC/C OMPLE TE BLD COUNT W/DIF F monocytes, absolute count 0.69 x10'3 /uL 0.29-0 .99 Not Available [facility] (Lab) [address] [place], [address], 11/21/2023 19:07:05 11/21/1911/21/2023 CBC/C OMPLE TE BLD COUNT W/DIF F eosinophils, absolute count 0.22 x10'3 /uL 0.02-0 .53 Not Available [facility] (Lab) [address] [place], [address], 11/21/2023 19:07:05 11/21/1911/21/2023 CBC/C OMPLE TE BLD COUNT W/DIF F basophils, absolute count 0.06 x10'3 /uL 0.01-0 .08 Not Available [facility] (Lab) [address] [place], [address], 11/21/2023 19:07:05 11/21/1911/21/2023 CBC/C OMPLE TE BLD COUNT W/DIF F immature granulocytes ,absolute 0.03 x10'3 /uL 0.00-0 .05 Not Available [facility] (Lab) [address] [place], [address], 11/21/2023 19:07:05 11/21/1911/21/2023 CBC/C OMPLE TE BLD COUNT W/DIF F nucleated red blood cells 0.0 % -0 Not Available [facility] (Lab) [address] [place], [address], 11/21/2023 19:07:05 11/21/19 11/21/2023 CBC/C OMPLE TE BLD COUNT W/DIF F NRBC# 0.00 x10'3 /uL Not Available [facility] (Lab) [address] [place], [address], 11/21/2023 19:07:05 06/24/19 XR, hip + pelvi s, bilat eral, 3 or 4 view [facility] [address] [facility] [place] [address] [phone] Patisami ordonez Name: MERCEDES QUIROZ Access ion #: [id number] Sex: F : 1944 6 Dictat [...] at 2023 12:10: 59 PM Page 1 [email or web address] [facility] (Imaging) [address] [place], [address], 07/09/2023 15:01:58 06/24/19 24 06/24/2023 XR, hip, bilat eral No observ ation record ed. [email or web address] [facility] [address] [place], [address], 07/09/2023 15:01:58 06/24/19 24 SI joint s [id number] [facility] [address] [place] [address] Patien t Name: MERCEDES QUIROZ Access ion #: [id number] Sex: F : 1944 6 Dictat ed By: Latasha Dawn Attend ing Physic gerebr: HOME CALDERA A Orderi ng Physic gerber: TOBYMEGHANN PARRY MURTUZ [...] at 2023 12:17: 51 PM Page 1 [email or web address] [facility] (Imaging) [address] [place] [address], [address], 07/09/2023 15:01:59 06/24/19 24 XR, lumbo sacra l spine , 2 or 3 view [facility] [address] [address] [phone] Patien t Name: MERCEDES QUIROZ Access ion #: [id number] Sex: F : 1944 6 Dictat ed By: Latasha Dawn Attend ing Physic gerber: HOME CALDERA Orderi ng Physic gerber: AKILA PARRY MURTUZ A [...] at 2023 12:18: 36 PM Page [address] (Imaging) [address] [place], [address], 07/09/2023 15:01:59 06/24/19 24 06/24/2023 XR, sacro iliac joint (s) No observ ation record ed. [address] [place], [address], 07/09/2023 15:02:00 06/24/19 24 06/24/2023 XR, lumbo sacra l spine , 2 or 3 view No observ ation record ed. [address] [place], [address], 10/22/2023 10:35:09 02/02/20 24 02/02/2024 US, abdom en No observ ation record ed. [address] [place], [address], 02/05/2024 09:38:20 03/10/19 25 03/10/2024 imagi ng/di agnos tic resul t No observ ation record ed. [address], [place], [address], 03/10/2024 19:02:45 04/20/19 25 04/12/2024 imagi ng/di agnos tic resul t No observ ation record ed. [facility] [address] [facility] [address], [place], [address], 04/19/2024 19:45:25 04/20/19 25 04/16/2024 imagi ng/di agnos tic resul t No observ ation record ed. [facility] [address], [place], [address], 04/19/2024 19:48:00 05/14/19 25 05/13/2024 DEXA, axial skele ton [facility] [address] [place] [address] [phone] Lysami ordonez Name: MERCEDES QUIROZ ion #: [id number] Sex: F : 1944 5 Dictat ed By: Sadiq hoskins Attend ing Physic gerber: HOME CALDERA Orderjonathan phoenix Physic gerber: HOME CALDERA Exam Date: 2024 10:10 AM Exam Name: XR DEXA-H IPS PELVIS SPINE Admitt ing Diagno sis(es ): INDICA TION: screen ing 79-yea r-old female with osteop orosis screen ing. DEXA SCAN: Techni que: DEXA scan of the lumbar spine and bilate ral hips was perfor med. Compar ugo is made with DEXA scan dated 2017. BONE DENSIT Y REPORT : AP SPINE (L1-L4 ) : T Score: 0.9 LEFT FEMORA L NECK : T Score: -1.6 RT FEMORA L NECK : T Score: -1.5 LEFT HIP TOTAL : T Score: -1.3 RT HIP TOTAL : T Score: -1.1 TOTAL BILAT HIP AVG: T Score: -1.2 10 YEAR FRACTU RE RISK* Major osteop orotic fractu re 23.7 % Hip fractu re 6 % IMPRES MICHELLE: 1. Normal bone minera l densit y of the lumbar spine overal l. It should be noted that the BMD at L4 is consis tent with osteop enia. 2. Osteop enia of the bilate ral hips and femora l necks. Page 1 [facility] [address] [place] [address] Patien t Name: MERCEDES QUIROZ ion #: [id number] Sex: F : 1944 5 Dictat ed By: Sadiq hoskins Attend ing Physic gerber: AKILA MEADOWS Physic gerber: HOME CALDERA Exam Date: 2024 10:10 AM Exam Name: XR DEXA-H IPS PELVIS SPINE Admitt ing Diagno sis(es ): ------ ------ ------ ------ ------ ------ ------ ------ ----- *FRAX versio n 3.08. Fractu re probab ility calcul ated for an untrea hali patien t. Fractu re probab ility may be lower if the patien t has receiv ed treatm ent. T-scor e: compar ugo by suman oliveira (SD) to a young adult popula tion, matche d for sex and ethnic ity (used for postme nopaus al women and men >50 years) and classi fied by WHO criter ia. -1.0: normal <-1.0 to >-2.5: osteop enia -2.5: osteop orosis -2.5 plus fragil ity fractu re: severe osteop orosis Z-scor e: compar ed by SD to an age, sex, and ethnic ity popula tion (used for premen opausa l women, men <50 years, and childr en instea d of T-scor e WHO criter ia 4) <-2.0: below expect ed range/ low bone densit y for age, and a cause should be sought Electr onical ly Signed by: Sadiq hoskins at 2024 10:50: 19 AM Page 2 INTERFACE [facility] (Imaging) [address], [place], [address], 05/13/2024 11:52:45 05/14/19 25 05/13/2024 screaidee gay t yessica, bilat [facility] [address] [facility] [address], [place] [address] Patisami t Name: MERCEDES QUIROZ ion #: [id number] Sex: F : 1944 5 Dictat ed By: Latasha Dawn Attend ing Physic gerber: HOME CALDERA Orderi ng Physic gerber: HOME CALDERA Exam Date: 2024 09:46 AM Exam Name: MG SCRN BREAST YESSICA BILAT Admitt ing Diagno sis(es ): PROCED URE: SCREEN ING MAMMOG JAMES WITH TOMOSY NTHESI S REASON FOR EXAM: screen ing COMPAR UGO: MG DIGITA L EDOUARD BILAT SCREEN on DOS: 4, MG DIAG RT SPECIA L VIEW on DOS: 03/13/22 , MG DIGITA L EDOUARD BILAT SCREEN 2D on DOS: 3, MG DIGITA L EDOUARD BILAT SCREEN 2D on DOS: 2, DIGITA L MAMM, BILAT SCREEN ING 2D on DOS: 02/14/20 TECHNI QUE: Bilate ral CC and MLO views obtain ed. Images were obtain ed using a Digita l Tomosy nthesi s Unit. Standa rd 2D and 3D Tomosy nthesi s images were review ed. This examin ation was analyz ed using Lunit Insigh t DBT/MM G in additi on to a radiol ogist review , an AI softwa re develo ped to enhanc e the effect ivenes s of breast cancer screen ing with mammog vivian. FINDIN GS: BREAST COMPOS ITION: A - The breast s are almost entire ly fatty. In the right breast , no asymme trical parenc hymal patter n, kirk ectura l distor tion, pleomo rphic microc alcifi cation s or masses . In the left breast , no asymme trical parenc hymal patter n, kirk ectura l distor tion, pleomo rphic microc alcifi cation s or masses . IMPRES MICHELLE: No findin gs of malign charlene. RECOMM ENDATI ON: Recomm end annual mammog james. Page 1 [facility] [address] [facility] [place] [address] Patien t Name: MERCEDES QUIROZ ion #: [id number] Sex: F : 1944 5 Dictat ed By: Latasha Dawn Attend ing Physic gerber: AKILA MEADOWS ng Physic gerber: HOME CALDERA Exam Date: 2024 09:46 AM Exam Name: MG SCRN BREAST YESSICA BILAT Admitt ing Diagno sis(es ): ASSESS MENT: BIRADS : 1 - Negati ve Electr onical ly Signed by: Latasha Dawn at 2024 10:54: 47 AM Page 2 [facility] (Imaging) [address] [place], [address], 05/31/2024 13:04:17 05/14/19 25 05/13/2024 DEXA, axial skele ton No observ ation record ed. [facility] [address] [place], [address], 05/13/2024 13:48:16 05/14/19 25 05/13/2024 MAMMO , scree marisela, digit al, bilat eral No observ ation record ed. [facility] [address] [place], [address], 05/13/2024 12:05:23 Result Notes None recorded. Problems Name Problem SNOMED Code Status Onset Date Resolution Date Notes Provider Name and Address Organization Details Recorded Time Gastroesop hageal reflux disease without esophagiti s 631220147 Active 2022 Aditya lancaster MD [address], [place], [address] , [facility] 3 12:23:57 Thrombocyt openic disorder 463147396 Active 2022 Aditya lancaster MD [address], [place], [address] , [facility] 3 12:24:11 Moderate recurrent major depression 00233334 Active 2022 Aditya lancaster MD [address], [place], [address] , [facility] 3 12:25:15 Environmen shayy allergy 473804852 Active 2022 Aditya lancaster MD [address], [place], [address] , [facility] 3 12:26:00 Osteoarthr 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 [id number] 00 Active 2022 Dima Ramos MD [address], [place], [address] , [facility] 3 15:09:42 COVID-19 047079696 Active 2022 Katie hernandez, [facility] 3 14:26:23 Chronic kidney disease 542341267 Active 2022 Aditya lancaster MD [address], [place], [address] , [facility] 3 12:25:04 Restless legs 74922557 Active 2023 Aditya lancaster MD [address], [place], [address] , [facility] 4 10:43:59 Sinus tachycardi a 82131069 Active 2023 Aditya lancaster MD [address], [place], [address] , [facility] [employer] [facility] 4 09:35:59 Osteoarthr itis of bilateral hip joints [id number] 05 Active 2023 Aditya lancaster MD [address], [place], [address] , [facility] Remember [employer] [facility] 4 16:02:02 Deep venous thrombosis 505536316 Active Not Available [facility] 3 09:34:23 Body mass index 30+ - obesity 039604717 Active 2018 Not Available [facility] 3 09:34:23 Cataract 229611940 Active Not Available [facility] 3 09:34:23 Cirrhosis of liver 71408465 Active 2018 Not Available [facility] 3 09:34:23 Localized, primary osteoarthr itis of the hand 921467303 Active Not Available [facility] 3 09:34:23 Osteoarthr itis of knee 643873736 Active Not Available [facility] 3 09:34:23 Cervical spondylosi s without myelopathy 542238636 Active Not Available [facility] 3 09:34:23 Vitamin D deficiency 93283505 Active 2021 Not Available [facility] 3 09:34:23 Hypothyroi dism 08913743 Active Not Available [facility] 3 09:34:23 Anxiety 84617818 Active 2017 Not Available [facility] 3 09:34:23 Hyperlipid emia 64403763 Active 2021 Not Available [facility] 3 09:34:23 Essential hypertensi on 89286485 Active 2017 Not Available [facility] 3 09:34:23 Rhinitis 94868783 Active Not Available [facility] 3 09:34:23 Diabetes mellitus 71171857 Active Not Available [facility] 3 09:34:23 Obstructiv e sleep apnea syndrome 98537342 Active 2018 Not Available [facility] 3 09:34:24 Type 2 diabetes mellitus without complicati on 252203047 Active 2024 Aditya lancaster MD [address], [place], [address] , [place] [facility] 5 11:00:39 Forgetful 76075029 Active 2024 Aditya lancaster MD [address], [place], [address] , [place] [facility] 5 11:00:39 Pain of bilateral knee joints 0421056783601 04 Active 2024 Aditya lancaster MD [address], [place], [address] , [place] [facility] 5 11:00:39 Chronic neck pain 7963112801049 Active 2024 Aditya lancaster MD [address], [place], [address] , [place] [facility] 5 11:00:39 Pain of right shoulder joint 1890418453677 9100 Active 2024 Aditya lancaster MD [address], [place], [address] , [place] [facility] 5 11:00:39 Pruritic rash 11592048 Active 2024 Aditya lancaster MD [address], [place], [address] , [place] [facility] 5 11:00:39 Low back pain 865566165 Active 2024 Aditya lancaster MD [address], [place], [address] , [place] [facility] 5 11:00:39 Pain of hip region 25791974 Active 2024 Lana Sanchez MA null, [employer] 11:01:59 Notes:CPAP set up 05/12/23 C PAP compliance 06/12/23 Medical History: Anxiety/Depression COVID infection 10/2022 Rhinitis Bruxism Obesity with MINA, 12/28/17, AHI = 73, on CPAP c/o IVRC Hypothyroidism Hyperlipidemia Hypertension T2DM with microalbuminuria JEAN PIERRE Cirrhosis CKD Vit D deficiency Thrombocytopenia Right DVT Cervical spondylosis Left hip OA Procedure History: T&A 194 Tubal ligation 1979 Left elbow/wrist surgery 1984 [...] CPT Code, subsequent completed Puneet King LPN [employer] 08/12/2023 11:06:57 024 Colonoscopy completed RAMÓN Hsieh [employer] 08/18/2023 10:39:18 023 Ortho - Cortisone Injection completed Dima Ramos MD [address] [place] [address], [address], [employer] 10/01/2022 15:08:00 021 Most Recent Bone Density completed Not Available [facility] 04/10/2022 03:14:36 020 Date of Last Colonoscopy completed Not Available [facility] 04/10/2022 03:14:36 013 Total knee arthroplasty completed Not Available [facility] 04/10/2022 03:14:37 013 Total knee arthroplasty completed Not Available [facility] 04/10/2022 03:14:37 Gastrointestinal Surgery completed Not Available [facility] 04/10/2022 03:14:37 other completed Not Available [facility] 04/10/2022 03:14:37 Gallbladder Surgery completed Not Available [facility] 04/10/2022 03:14:37 Tonsillectomy completed Not Available [facility] 04/10/2022 03:14:37 Knee Surgery completed Not Available [facility] 04/10/2022 03:14:37 Cataract Surgery completed Not Available [facility] 04/10/2022 03:14:37 Hernia Repair completed Not Available [facility] 04/10/2022 03:14:37 [employer]BI[employer] Surgery completed Not Available [facility] 04/10/2022 03:14:37 other completed Not Available [facility] 04/10/2022 03:14:37 Imaging Results Imaging Date Name Status LastModified by Organiz ation Details LastModified Time 06/24/2023 XR, hip + pelvis, bilateral, 3 or 4 view completed [email or web address] [facility] (Imaging) [address] [place], [address], 07/09/2023 15:01:58 06/24/2023 XR, hip, bilateral completed [facility] [address] [place], [address], 07/09/2023 15:01:58 06/24/2023 SI joints 3vws+ completed [email or web address] [facility] (Imaging) [address] [place], [address], 07/09/2023 15:01:59 06/24/2023 XR, lumbosacral spine, 2 or 3 view completed [email or web address] [facility] (Imaging) [address] [place], [address], 07/09/2023 15:01:59 06/24/2023 XR, sacroiliac joint(s) completed [email or web address] [facility] [address] [place], [address], 07/09/2023 15:02:00 06/24/2023 XR, lumbosacral spine, 2 or 3 view completed [email or web address] [facility] [address] [place], [address], 10/22/2023 10:35:09 02/02/2024 US, abdomen completed [email or web address] [facility] [address] [place], [address], 02/05/2024 09:38:20 03/10/2024 imaging/diagnos tic result active [facility] [address], [place], [address], 03/10/2024 19:02:45 04/12/2024 imaging/diagnos tic result active [facility] [address], [place], [address], 04/19/2024 19:45:25 04/16/2024 imaging/diagnos tic result active [facility] [address], [place], [address], 04/19/2024 19:48:00 05/13/2024 DEXA, axial skeleton active INTERFACE [facility] (Imaging) [address] [place], [address], 05/13/2024 11:52:45 05/13/2024 screening breast yessica, bilat active [facility] (Imaging) [address] [place], [address], 05/31/2024 13:04:17 05/13/2024 DEXA, axial skeleton active [facility] [address] [place], [address], 05/13/2024 13:48:16 05/13/2024 MAMMO, screening, digital, bilateral active [facility] [address] [place], [address], 05/13/2024 12:05:23 Procedure Notes None recorded. Medical Equipment None [...] Not Available Not Available No t Available [employer] Ultra Test strips USE TO TEST ONCE DAILY AND NEEDED 03/13 completed Not Available Not Available Not Available Kenalog 10 mg/mL suspensio n for injection Take 20 mg by injectio n route. 12/02 completed [facility]: 0003-049 - Not Available Not Available Not Available benzonata [...] mg tablet TAKE 1 TABLET BY MOUTH DAILY 2024 active Not Available Not Available Not Avai lable levothyro xine 200 mcg tablet TAKE 1 [...] administ ered by the provider 10/03 completed [facility]: 0409-427 6-17 Not Available Not Available [...] mg by injectio n route. 12/02 completed [facility] 19644-92 4- Not Available Not Available Not Available [...] Available Not Available Not Available Fluzone High-Dose 0190-5928 (PF) 180 mcg/0.5 mL intramusc ular syringe [...] Updated DateTime 4 165.1 cm 34.9 kg/m2 61380.4 g 97.6 [degF] 78 /min 128 mm[Hg] 74 mm[Hg] RAMÓN Hsieh [place] [facility] [employer] [facility] 4 15:37:30 Date Recorded Body height Body mass index (BMI) Body weight Body temperature Heart rate Systolic blood pressure Diastolic blood pressure Provider Name and Address Organization Details Last Updated DateTime 4 165.1 cm 35.8 kg/m2 87978.3 6 g 97.5 [degF] 78 /min 114 mm[Hg] 60 mm[Hg] Kristi Flower [facility] [employer] [facility] 4 10:41:05 Date Recorded Pain severity - 0-10 verbal numeric rating [Score] - Reported Provider Name and Address Organization Details Last Updated DateTime 08/18/2023 4 Puneet King LPN [facility] [employer] [facility] 08/18/2023 11:52:49 Date Recorded Body height Body mass index (BMI) Body weight Body temperature Heart rate Respiratory rate Oxygen saturation Oxygen saturation in Arterial blood by Pulse oximetry Pain severity - 0-10 verbal numeric rating [Score] - Reported Systolic blood pressure Diastolic blood pressure Provider Name and Address Organization Details Last Updated DateTime 4 165.1 cm 36.5 kg/m2 11323.5 3 g 97.5 [degF] 94 /min 18 /min 96 % 96 % 0 152 mm[Hg] 80 mm[Hg] Puneet King LPN [facility] [employer] [facility] 4 14:44:09 Date Recorded Body height Body mass index (BMI) Body weight Body temperature Heart rate Systolic blood pressure Diastolic blood pressure Provider Name and Address Organization Details Last Updated DateTime 4 165.1 cm 36.8 kg/m2 971198. 91 g 97.6 [degF] 84 /min 118 mm[Hg] 66 mm[Hg] Kristi Flower [facility] [employer] [facility] 4 11:08:27 Date Recorded Body height Body mass index (BMI) Body weight Body temperature Heart rate Systolic blood pressure Diastolic blood pressure Provider Name and Address Organization Details Last Updated DateTime 5 165.1 cm 36.6 kg/m2 22272.3 2 g 97.5 [degF] 96 /min 126 mm[Hg] 70 mm[Hg] Kristi Flower Zeeshan [facility] [employer] 14:37:17 Social History Question Answer Notes LastModified by Organization Details LastModified Time Tobacco Smoking Status Former Smoker Not Available [facility] 04/10/2022 03:13:55 Do You Have An Advance Directive? Yes Asked To Bring Copy For Chart MIGRATION.030 [id number] Information not available 04/10/2022 What Is Your Level Of Alcohol Consumption? None MIGRATION.030 928441 Information not available 04/10/2022 Do You Wear A Helmet When Biking? No Does Not Bike MIGRATION.0301 638716 Information not available 04/10/2022 Are You Blind Or Do You Have Difficulty Seeing? No MIGRATION.030 658909 Information not available 04/10/2022 Is Blood Transfusion Acceptable In An Emergency? Yes [email or web address] Information not available 08/18/2023 What Is Your Level Of Caffeine Consumption? Occasional MIGRATION.030 247363 Information not available 04/10/2022 How Much Tobacco Do You Chew? None MIGRATION.030 722276 Information not available 04/10/2022 In The 14 Days Before Symptom Onset, Have You Had Close Contact With A Laboratory-confi rmed COVID-19 While That Case Was Ill? No MIGRATION.030 381475 Information not available 04/10/2022 In The 14 Days Before Symptom Onset, Have You Had Close Contact With A Person Who Is Under Investigation For COVID-19 While That Person Was Ill? No MIGRATION.0301 328417 Information not available 04/10/2022 Are You Currently Employed? No Information not available 03/13/2023 Are You Deaf Or Do You Have Serious Difficulty Hearing? No MIGRATION.0301 879258 Information not available 04/10/2022 What Type Of Diet Are You Following? REGULAR MIGRATION.030 977683 Information not available 04/10/2022 Which Illicit Or Recreational Drugs Have You Used? None MIGRATION.030 061364 Information not available 04/10/2022 Do You Or Have You Ever Used E-cigarettes Or Vape? Never Used Electronic Cigarettes MIGRATION.0301 770888 Information not available 04/10/2022 What Is The Highest Grade Or Level Of School You Have Completed Or The Highest Degree You Have Received? [id number] MIGRATION.030 454151 Information not available 04/10/2022 Do You Have An Electrostatic Air Filter? No Information not available 03/13/2023 What Is Your Occupation? Retired MIGRATION.0301 316644 Information not available 04/10/2022 How Many Days Of Moderate To Strenuous Exercise, Like A Brisk Walk, Did You Do In The Last 7 Days? 0 [email or web address] Information not available 08/18/2023 Have There Been Any Changes To Your Family Or Social Situation? No Information not available 08/18/2023 What Is The Fluoride Status Of Your Home? Fluoridated MIGRATION.0301 079040 Information not available 04/10/2022 When Did You Quit Smoking? 16+yearssincelastci garette MIGRATION.0301 098281 Information not available 04/10/2022 Are There Any Guns Present In Your Home? Yes MIGRATION.0301 166424 Information not available 04/10/2022 Do You Have A Humidifier? No Information not available 03/13/2023 Do You Use Insect Repellent Routinely? No MIGRATION.0301 371531 Information not available 04/10/2022 Where Do You Live? SingleLevelHouse MIGRATION.0301 341326 Information not available 04/10/2022 Presence Of Domestic Violence No [email or web address] Information not available 08/18/2023 Guns Present In The Home? Yes [email or web address] Information not available 08/18/2023 Are You Able To Care For Yourself? Yes [email or web address] Information not available 08/18/2023 Are You Blind Or Do Yo Have Difficulty Seeing? No [email or web address] Information not available 08/18/2023 Are You Deaf Or Do You Have Serious Difficulty Hearing? No [email or web address] Information not available 08/18/2023 General Stress Level? Moderate [email or web address] Information not available 08/18/2023 Live Alone Of With Others? With Others [email or web address] Information not available 08/18/2023 Do You Have A Medical Power Of Vegetable Picker? Yes MIGRATION.0301 513041 Information not available 04/10/2022 Do You Have Moisture Problems In Your Home? No Information not available 03/13/2023 What Was The Date Of Your Most Recent Tobacco Screening? 03/31/2024 [email or web address] Information not available 03/31/2024 Do You Have Any Pets? No MIGRATION.0301 447102 Information not available 04/10/2022 What Is Your Relationship Status? MIGRATION.0301 366467 Information not available 04/10/2022 Do You Use Your Seat Belt Or Car Seat Routinely? Yes MIGRATION.0301 083002 Information not available 04/10/2022 Do You Have Smoke And Carbon Monoxide Detectors In Your Home? Yes MIGRATION.0301 460209 Information not available 04/10/2022 Are You Passively Exposed To Smoke? No MIGRATION.0301 896361 Information not available 04/10/2022 Do You Or Have You Ever Used Smokeless Tobacco? Never Used Smokeless Tobacco MIGRATION.0301 927610 Information not available 04/10/2022 Are There Any Smokers In Your House? No MIGRATION.0301 561481 Information not available 04/10/2022 How Much Tobacco Do You Smoke? No MIGRATION.0301 982430 Information not available 04/10/2022 What Types Of Sporting Activities Do You Participate In? None MIGRATION.0301 412299 Information not available 04/10/2022 Do You Feel Stressed (tense, Restless, Nervous, Or Anxious, Or Unable To Sleep At Night)? [id number] [email or web address] Information not available 08/18/2023 Do You Use Any Illicit Or Recreational Drugs? No MIGRATION.0301 290993 Information not available 04/10/2022 Do You Use Sunscreen Routinely? No MIGRATION.0301 923464 Information not available 04/10/2022 Has Tobacco Cessation Counseling Been Provided? No MIGRATION.0301 771257 Information not available 04/10/2022 How Many Years Have You Smoked Tobacco? -1 [email or web address] Information not available 08/18/2023 Have You Recently Traveled Abroad? No MIGRATION.0301 638370 Information not available 04/10/2022 Do You Have Any Dietary Restrictions? No MIGRATION.0301 396569 Information not available 04/10/2022 Do You Or Have You Ever Used Any Other Forms Of Tobacco Or Nicotine? No MIGRATION.0301 321021 Information not available 04/10/2022 Sex: Female Functional Status Question Answer Note LastModified by Organizat ion Details LastModified Time Do you have difficulty walking or climbing stairs? No MIGRATION.8915057 026 Information not available 04/10/2022 Do you have transportation difficulties? No MIGRATION.2652222 026 Information not available 04/10/2022 Are you able to walk? YESWOREST MIGRATION.8859558 026 Information not available 04/10/2022 Do you have difficulty doing errands alone? No MIGRATION.9064686 026 Information not available 04/10/2022 Are you able to care for yourself? Yes MIGRATION.3921899 026 Information not available 04/10/2022 Do you have difficulty dressing or bathing? No MIGRATION.7674378 026 Information not available 04/10/2022 What is your exercise level? None MIGRATION.2666297 026 Information not available 04/10/2022 Mental Status Question Answer Note LastModified by Organizat ion Details LastModified Time Do you have difficulty concentrating, remembering or making decisions? No MIGRATION.023238086 6 Information not available 04/10/2022 Family History Relationship Description Onset Age of this Age Resolved Age Notes LastModified by Organization Details LastModified Time Father Diabetes mellitus MIGRATION.651 [id number] Not available 04/10/2022 03:14:45 Father Family history [...] N CHRONIC PAIN SYNDROME N HYPOTHYROIDISM Y CONSTIPATION N CAROTID BLOCKAGE N BACK / NECK PROBLEMS Y ATHEROSCLEROSIS N BREAST PROBLEMS N DIALYSIS N ECZEMA N OSTEOPOROSIS N ARTHRITIS Y RESPIRATORY PROBLEMS Y APPENDICITIS N DIABETES, TYPE Y BAD TEETH N ENT N HEARTBURN / REFLUX N AUTISM SPECTRUM DISORDER (ASD) N HEPATITIS / LIVER DISEASE Y GOUT N SLEEP DISORDER N ALZHEIMER'S DISEASE N Brain Problems N HERPES N DEMENTIA N SEIZURES/EPILEPSY N HEADACHES/MIGRAINES N VASCULAR DISEASE N PACEMAKER N Blood Disorder N DIZZINESS N KIDNEY DISEASE N HEART DISEASE/HEART PROBLEMS Y MULTIPLE SCLEROSIS N CARDIAC ARRHYTHMIA N CANCER: SPECIFY N Gall Stones N ATRIAL FIBRILLATION N PULMONARY EMBOLISM N AUTOIMMUNE DISEASE N [...] high-dose, quadrivalent, PF 0 completed RAMÓN Hsieh, [facility] [employer] [facility] 08/13/2023 11:55:32 COVID-19, mRNA, LNP-S, PF, 30 mcg/0.3 mL dose 2 completed RAMÓN Hsieh null, [facility] [address] [facility] 08/13/2023 11:55:32 COVID-19, mRNA, LNP-S, PF, 30 mcg/0.3 mL dose 1 completed RAMÓN Hsieh, [facility] 08/13/2023 11:55:32 COVID-19, mRNA, LNP-S, PF, 30 mcg/0.3 mL dose 1 completed Kristi Tampa, RMA null, [facility] 08/13/2023 11:55:32 COVID-19, mRNA, LNP-S, PF, 30 mcg/0.3 mL dose, mj-sucrose 2 completed Kristi Flower, RMA null, [facility] 08/13/2023 11:55:32 Influenza, high-dose, trivalent, PF 5 completed Kristi Flower, RMA null, [facility] 08/13/2023 11:55:32 Influenza, high-dose, trivalent, PF 7 completed Kristi Flower RMA null, [facility] 08/13/2023 11:55:32 Influenza, high-dose, trivalent, PF 6 completed Kristi Flower RMA null, [facility] 08/13/2023 11:55:33 SARS-COV-2 (COVID-19) vaccine, UNSPECIFIED 1 completed Kristi Flower, RMA null, [facility] 08/13/2023 11:55:32 SARS-COV-2 (COVID-19) vaccine, UNSPECIFIED 1 completed Kristi Flower RMA null, [facility] 08/13/2023 11:55:32 Influenza, high-dose, trivalent, PF 9 completed Kristi Flower RMA null, [facility] 08/13/2023 11:55:33 Influenza, high-dose, trivalent, PF 7 completed Kristi Flower RMA null, [facility] 08/13/2023 11:55:32 Influenza, high-dose, trivalent, PF 6 completed Kristi Flower RMA null, [facility] 08/13/2023 11:55:33 Influenza, high-dose, trivalent, PF 5 completed Kristi Tampa, RMA null, [facility] 08/13/2023 11:55:32 Tdap 0 completed Kristi Mundo, RMA null, [facility] 08/13/2023 11:55:32 Influenza, high-dose, trivalent, PF 0 completed Kristi Mundo, RMA null, [facility] 08/13/2023 11:55:33 Influenza, high-dose, trivalent, PF 4 completed Kristi Mundo, RMA null, [facility] 08/13/2023 11:55:32 Influenza, high-dose, trivalent, PF 3 completed Kristi Flower RMA null, [facility] 08/13/2023 11:55:32 Influenza, high-dose, quadrivalent, PF 2 completed Not Available [facility] 07/29/2022 09:34:24 Influenza, high-dose, quadrivalent, PF 1 completed Not Available [facility] 07/29/2022 09:34:24 pneumococcal polysaccharide PPV23 9 completed Not Available [facility] 07/29/2022 09:34:24 Influenza, high-dose, trivalent, PF 8 completed Not Available [facility] 07/29/2022 09:34:24 Pneumococcal conjugate PCV 13 8 completed Not Available [facility] 07/29/2022 09:34:24 Influenza, high-dose, quadrivalent, PF 3 completed Aditya Joyce MD [address] [place] [address], [address], [facility] 12/02/2022 17:56:33 Past Encounters Encounter ID Performer Location Encounter Start Date Encounter Closed Date Diagnosis/Indication Diagnosis SNOMED-CT Code Diagnosis ICD10 Code Diagnosis Note [id number] Aditya lancaster MD [facility] [place] [address] [place] [address] 06/19/2020 00:00:00 06/19/2020 14:22:26 [id number] MD SAMUEL Zepeda[facility] [place] [address] [place] [address] 06/21/2020 00:00:00 06/21/2020 13:25:17 [id number] [facility] [place] [address] [place] [address] 08/01/2020 00:00:00 08/01/2020 12:57:26 [id number] Dima Ramos MD [facility] [place] [address] [place] [address] 08/29/2020 00:00:00 08/29/2020 16:03:30 [id number] Aditya lancaster MD [facility] [place] [address] [facility] [place] [address] 10/23/2020 00:00:00 10/23/2020 14:29:56 [id number] [facility] [place] [address] [place] [address] 11/02/2020 00:00:00 11/02/2020 17:24:59 [id number] Aditya lancaster MD [facility] [place] [address] [facility] [place] [address] 04/02/2021 00:00:00 04/02/2021 11:59:31 [id number] Dima Ramos MD [facility] [place] [address] [place] [address] 05/22/2021 00:00:00 05/22/2021 15:53:36 [id number] Dima Ramos MD [facility] [place] [address] [place] [address] 06/19/2021 00:00:00 06/19/2021 15:10:11 [id number] Aditya lancaster MD [facility] [place] [address] [facility] [place] [address] 07/25/2021 00:00:00 07/25/2021 16:57:22 [id number] [place] He, [facility] [place] [address] [place] [address] 08/21/2021 00:00:00 08/21/2021 14:35:56 [id number] Dima Ramos MD [facility] [place] [address] [place] [address] 09/17/2021 00:00:00 09/17/2021 10:29:45 [id number] [facility] [place] [address] [place] [address] 11/01/2021 00:00:00 11/04/2021 16:36:10 [id number] Aditya lancaster MD [facility] [place] [address] [facility] [place] [address] 11/26/2021 00:00:00 11/26/2021 12:56:05 [id number] Aditya lancaster MD [facility] [place] [address] [facility] [place] [address] 12/05/2021 00:00:00 12/05/2021 12:08:16 [id number] Aditya lancaster MD [facility] [place] [address] [facility] [place] [address] 03/27/2022 00:00:00 03/27/2022 17:14:53 [id number] Aditya lancaster MD [facility] [place] [address] [facility] [place] [address] 07/29/2022 11:49:50 07/29/2022 12:58:47 Type 2 diabetes mellitus without complication 856589908 E11.9 On metformin ER 500mg bidOn ozempic, does well denies any MCT, MEN2 or pancreatic issuesGet labs Does well Needs to see her eye Does see Dr Long on 11/02/2020 Screening - NAD 75228448 3 Z13.9 C-scope: 02/22/2014 : Dr Da [...] his understand ing of the above Hyperlipidemia 56853367 E78.5 On rosuvastat in 20mg daily Get labs Hypothyroidism 00177787 E03.9 On levothyrox ine 200mcgs dailyDoes wellRepeat the labs Restless legs 90682420 G 25.81 Not on requip now On tizanidine 4mg dailyDoes well Gastroesop hageal reflux disease without esophagitis 713949456 K21.9 S/p EGDOn nexium, take as needed only Does well Sinus tachycardia 258857 01 R00.0 s/p Stress test 08/24/2020 : NegS/p ECHO 08/24/2020 On metoprolol ER 25mg dailyOn lisinopril 10mg dailyDoes well Sees [facility] Dr Auguste last OV 09/19/2021 Thrombocyt openic disorder 570186915 D69.[address] Heart Last OV 03/13/2021 , f/u yearly Obstructiv e sleep apnea syndrome 00945388 G47.33 S/p sleep study 12/28/17Is using the CPAP and is very compliant 04/13/2019 : CT Chest: Deysi Butler, no acute intrathora cic process, thyrodi calcificat ions, F/u USOld granulomat os disease 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/21/2021 Environmental allergy 42 9489575 T78.49XD On proairOn singulair Does well Forgetful 06834384 R41.3 Get labsS/p MRI brain 06/26/2020 May need to see neurology Pain of bi lateral knee joints 7014213842 94503 M25.561 M25.562 S/p jeff TKRsDr Richard 09/17/2021 Cirrhosis of liver 80839 007 K74.60 Liver 06/26/2020 liver 07/26/2021 : Nodular margins, cirrhosisG et an apt with GI hepatology Dr Roberts also, has seen Anastasia Maryam in 01/2021 liver 03/13/2022 , see case Moderate r ecurrent major depression 96025483 F33.1 On venlafaxin e ER 75mgs dailyDoes wellNot suicidal or homicidalD eclines any referral to psychiatry Can renew when needed Essential hypertension 87656029 I10 On lisinopril 5mg will cut this in half 07/29/2022 , as she feels the BP is low, bring BP logs in 2 weeksOn metoprolol ER 25mg daily, may need to adjust this [id number] [place] He, [facility] Pulmonolo gy Bandar Reina [address] [place] [address] 09/11/2022 12:18:43 09/11/2022 14:57:32 Obstructive sleep apnea syndrome 61058444 G47.33 Split night study 12/28/17 with AHI [...] at least 4 hours prior to bedtime. [id number] Dima Ramos MD [facility] [address] [place] [address] 09/17/2022 14:48:10 09/17/2022 15:42:57 Pain of bilateral knee joints 5439005013 13088 M25.561 M25.562 History of bilateral total knee replacement 2492110032 211553 Z96.653 [id number] Dima Ramos MD [facility] [place] [address] [place] [address] 10/01/2022 14:48:35 10/01/2022 15:20:37 Pain of right shoulder joint 7402385786 6596818 M25.511 Osteoarthr 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 8802639119 18379 M19.183 [id number] Jewel loera MD [facility] [place] [address] , [facility] [address] [place] [address] 11/05/2022 10:25:40 11/05/2022 11:59:15 Lymphadenopathy 53222903 R59.1 [id number] Aditya lancaster MD [facility] [place] Tommy jacinto [address] [facility] [place] [address] 12/02/2022 11:55:51 12/02/2022 12:52:29 Screening - NAD 112635024 Z13.9 C-scope: 02/22/2014 : Dr Da Silva [...] Type 2 ofe betes mellitus without complication 154584771 E11.9 On metformin ER 500mg bidOn ozempic, does well denies any MCT, MEN2 or pancreatic issuesGet labs Does well Needs to see her eye MD Does see Dr Long on 11/02/2020 Hyperlipidemia 76522862 E78.5 On rosuvastat in 20mg daily Get labs Hypothyroidism 79226305 E03.9 On levothyrox ine 200mcgs daily,will decrease to 150mcgs dailyDoes wellRepeat the labs Restless legs 52143539 G 25.81 Not on requip now On tizanidine 4mg dailyDoes well Gastroesop hageal reflux disease without esophagitis 067524910 K21.9 S/p EGDOn nexium, take as needed only Does well Sinus tachycardia 496270 01 R00.0 s/p Stress test 08/24/2020 : NegS/p ECHO 08/24/2020 On metoprolol ER 25mg dailyOn lisinopril 5mg dailyDoes well Sees [facility] Dr Auguste last OV 09/19/2021 Thrombocyt openic disorder 777448856 D69.[address] Heart Last OV 03/13/2021 , f/u yearlyLast OV 03/19/2022 , f/u yearly Obstructiv e sleep apnea syndrome 71367635 G47.33 S/p sleep study 12/28/17Is using the CPAP and is very compliant 04/13/2019 : CT Chest: Deysi Butler, no acute intrathora cic process, thyrodi calcificat ions, F/u USOld granulomat os disease 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/21/2021 [employer] He [employer] MAN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 09/11/2022 , next 04/22/2023 Environmental allergy 42 2405068 T78.49XD On proairOn singulair Does well Forgetful 09573410 R41.3 Get labs S/p MRI brain 06/26/2020 May need to see neurology Pain of bi lateral knee joints 3038262142 29352 M25.561 M25.562 S/p jeff TKRs Dr Ramos 09/17/2021 Cirrhosis of liver 75649 007 K74.60 US Liver 06/26/2020 US liver 07/26/2021 : Nodular margins, cirrhosisG et an apt with GI hepatology Dr Roberts also, has seen Anastasia Francisco in 01/2021 US liver 03/13/2022 , see case Moderate r ecurrent major depression 59481387 F33.1 On venlafaxin e ER 75mgs dailyDoes wellNot suicidal or homicidalD eclines any referral to psychiatry Can renew when needed Essential hypertension 40514585 I10 On lisinopril 5mgOn metoprolol ER 25mg daily, may need to adjust this COVID-19 736791452 U07.1 +ve 10/29/2022 , see case 10/29/2022 Pain of ri ght shoulder joint 0584113002 8989060 M25.511 Dr Ramos 10/01/2022 , s/p kenalog Chronic ki dney disease 010010720 N18.[address] Banks IJ Chronic neck pain 922441 1939 107 M54.2 Get Xray C-spineIf not better, get PT and may need to see IPC Administra tion of influenza vaccine 49418007 Z23 [id number] Fran Warner MD [facility] Pulmonolo gy [address], [place] [address] 03/13/2023 11:59:32 03/14/2023 15:38:10 Obstructive sleep apnea syndrome 55325452 G47.33 [id number] Aditya lancaster MD [facility] Internal Med Tommy jacinto [address] [facility] [place] [address] 03/31/2023 11:47:38 03/31/2023 12:49:59 Screening - NAD 494000812 Z13.9 C-scope: 02/22/2014 : Dr Da Silva [...] Type 2 ofe betes mellitus without complication 034496782 E11.9 On metformin ER 500mg bidOn ozempic, does well denies any MCT, MEN2 or pancreatic issuesGet labs Does well Needs to see her eye Does see Dr Long on 11/02/2020 Hyperlipidemia 42502372 E78.5 On rosuvastat in 20mg daily Get labs Hypothyroidism 01927278 E03.9 On levothyrox ine 100mcgs dailyDoes wellRepeat the labsGet US thyroid Restless legs 81368379 G 25.81 Not on requip now On tizanidine 4mg dailyDoes well Gastroesop hageal reflux disease without esophagitis 949007294 K21.9 S/p EGDOn nexium, take as needed only Does well Sinus tachycardia 847355 01 R00.0 s/p Stress test 08/24/2020 : NegS/p ECHO 08/24/2020 On metoprolol ER 25mg dailyOn lisinopril 5mg dailyDoes well Sees [facility] Dr Auguste last OV 09/19/2021 Thrombocyt openic disorder 807324885 D69.[address] Heart Last OV 03/13/2021 , f/u yearlyLast OV 03/19/2022 , f/u yearly Obstructiv e sleep apnea syndrome 43367477 G47.33 S/p sleep study 12/28/17Is using the CPAP and is very compliant 04/13/2019 : CT Chest: Deysi Butler, no acute intrathora cic process, thyrodi calcificat ions, F/u USOld granulomat os disease 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/21/2021 [employer] He [employer] 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 09/11/2022 , next 04/22/2023 Environmental allergy 42 8999521 T78.49XD On proairOn singulair Does well Forgetful 49963565 R41.3 Get labs S/p MRI brain 06/26/2020 May need to see neurology Pain of bi lateral knee joints 8882522787 74158 M25.561 M25.562 S/p jeff TKRs Dr Ramos 09/17/2021 Cirrhosis of liver 48314 007 K74.60 US Liver 06/26/2020 US liver 07/26/2021 : Nodular margins, cirrhosisG et an apt with GI hepatology Dr Roberts also, has seen Anastasia Francisco in 01/2021 Anastasia Francisco 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 02/13/2023 , f/u in 6 monthsUS liver 03/13/2022 , see case Moderate r ecurrent major depression 65158373 F33.1 On venlafaxin e ER 75mgs dailyDoes wellNot suicidal or homicidalD eclines any referral to psychiatry Can renew when needed Essential hypertension 40451328 I10 On lisinopril 5mgOn metoprolol ER 25mg daily, may need to adjust this COVID-19 746401700 U07.1 +ve 10/29/2022 , see case 10/29/2022 Pain of ri ght shoulder joint 9432658382 8282589 M25.511 Dr Ramos 10/01/2022 , s/p kenalog Chronic ki dney disease 845779633 N18.[address] Banks IJ Chronic neck pain 854129 9510 107 M54.2 Get Xray C-spineIf not better, get PT and may need to see IPC Xray C-spine 12/02/2022 Screening for malignant neoplasm of colon 869726326 Z12.11 Pruritic rash 66846503 L 28.2 In the groin area, red and itchy, not examined today, no rash at present, would like a refill of nystatin-t riainolo ne [id number] Fran Warner MD [facility] Pulmonolo gy [place] [address] 06/12/2023 12:02:56 06/13/2023 09:12:13 Obstructive sleep apnea syndrome 53272130 G47.33 [id number] Aditya lancaster MD [facility] Internal Med [facility] [address] [place] [address] 1 06/25/2023 15:20:32 06/25/2023 16:19:01 Screening - NAD 906701347 Z13.9 C-scope: 02/22/2014 : Dr Da Silva [...] Type 2 ofe betes mellitus without complication 685373737 E11.9 On metformin ER 500mg bidOn ozempic, does well denies any MCT, MEN2 or pancreatic issuesGet labs Does well Needs to see her eye MD Does see Dr Long on 11/02/2020 Hyperlipidemia 66450468 E78.5 On rosuvastat in 20mg daily Get labs Hypothyroidism 90388883 E03.9 On levothyrox ine 100mcgs dailyDoes wellRepeat the labsGet US thyroid Restless legs 25326702 G 25.81 Not on requip now On tizanidine 4mg dailyDoes well Gastroesop hageal reflux disease without esophagitis 756151859 K21.9 S/p EGDOn nexium, take as needed only Does well Sinus tachycardia 304288 01 R00.0 s/p Stress test 08/24/2020 : NegS/p ECHO 08/24/2020 On metoprolol ER 25mg dailyOn lisinopril 5mg dailyDoes well Sees [facility] Dr Auguste last OV 09/19/2021 Thrombocyt openic disorder 709870950 D69.[address] Heart Last OV 03/13/2021 , f/u yearlyLast OV 03/19/2022 , f/u yearly Obstructiv e sleep apnea syndrome 51672330 G47.33 S/p sleep study 12/28/17Is using the CPAP and is very compliant 04/13/2019 : CT Chest: Deysi Butler, no acute intrathora cic process, thyrodi calcificat ions, F/u USOld granulomat os disease 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/21/2021 [employer] He [employer] MAN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 09/11/2022 , next 04/22/2023 Environmental allergy 42 4670239 T78.49XD On proairOn singulair Does well Forgetful 10645502 R41.3 Get labs S/p MRI brain 06/26/2020 May need to see neurology Pain of bi lateral knee joints 5879959116 93950 M25.561 M25.562 S/p jeff TKRs Dr Ramos 09/17/2021 Cirrhosis of liver 76455 007 K74.60 US Liver 06/26/2020 US liver 07/26/2021 : Nodular margins, cirrhosisG et an apt with GI hepatology Dr Roberts also, has seen Anastasia Francisco in 01/2021 Anastasia Francisco E[employer]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 02/13/2023 , f/u in 6 monthsUS liver 03/13/2022 , see case Moderate r ecurrent major depression 21542451 F33.1 On venlafaxin e ER 75mgs dailyDoes wellNot suicidal or homicidalD eclines any referral to psychiatry Can renew when needed Essential hypertension 98276592 I10 On lisinopril 5mgOn metoprolol ER 25mg daily, may need to adjust this COVID-19 848058569 U07.1 +ve 10/29/2022 , see case 10/29/2022 Pain of ri ght shoulder joint 3788359909 4589[address] M25.511 [address] Ramos 10/01/2022 , s/p kenalog Chronic ki dney disease 665378350 N18.[address] Banks IJ Chronic neck pain 952376 8963 107 M54.2 Get Xray C-spineIf not better, get PT and may need to see IPC Xray C-spine 12/02/2022 Screening for malignant neoplasm of colon 641684528 Z12.11 Pruritic rash 11802309 L 28.2 In the groin area, red and itchy, not examined today, no rash at present, would like a refill of nystatin-t riamcinolo ne Low back pain 692713294 M54.50 Xrays noted 06/24/2023 Already on the diclofenac given by Kobe Madrigal on flexerillN eeds another apt with ortho Osteoarthr itis of bilateral hip joints 9290034935 71515 M16.0 Has seen Kobe Madrigal another referral [id number] Aditya lancaster MD [facility] Internal Med Tommy jacinto [address] [place] [address] 08/18/2023 10:28:33 08/18/2023 11:26:37 Adult health examination 097798836 Z00.00 Screening for disorder 757849860 Z13.9 Screening - NAD 64268347 3 Z13.9 C-scope: 02/22/2014 : Dr Da [...] Type 2 ofe betes mellitus without complication 725338396 E11.9 Not taking metformin ER 500mg bidOn ozempic, does well denies any MCT, MEN2 or pancreatic issuesGet labs Does wellNeeds to see her eye MD Does see Dr Long on 11/02/2020 Does not want heraclio Mast ill refer toDr Angeles Hyperlipidemia 82122692 E78.5 On rosuvastat in 20mg dailyGet labs Hypothyroidism 04007784 E03.9 On levothyrox ine 100mcgs dailyDoes wellRepeat the labsGet US thyroid Restless legs 32496935 G 25.81 Not on requip now On tizanidine 4mg dailyDoes well Gastroesop hageal reflux disease without esophagitis 759078373 K21.9 S/p EGDOn nexium, take as needed only Does well Sinus tachycardia 178167 01 R00.0 s/p Stress test 08/24/2020 : NegS/p ECHO 08/24/2020 On metoprolol ER 25mg dailyOn lisinopril 5mg dailyDoes well Sees [facility] Dr Auguste last OV 09/19/2021 Thrombocyt openic disorder 858096668 D69.[address] Heart Last OV 03/13/2021 , f/u yearlyLast OV 03/19/2022 , f/u yearly Obstructiv e sleep apnea syndrome 92846693 G47.33 S/p sleep study 12/28/17Is using the CPAP and is very compliant 04/13/2019 : CT Chest: Deysi Butler, no acute intrathora cic process, thyrodi calcificat ions, F/u USOld granulomat os disease 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/21/2021 [employer] He [employer] MAN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 09/11/2022 Dr Warner last 06/12/2023 , next 4 Environmental allergy 42 8838972 T78.49XD On proairOn singulair Does well Forgetful 75424768 R41.3 Get labs S/p MRI brain 06/26/2020 May need to see neurology Pain of bi lateral knee joints 7346089851 59227 M25.561 M25.562 S/p jeff TKRs Dr Ramos 09/17/2021 Cirrhosis of liver 70606 007 K74.60 US Liver 06/26/2020 US liver 07/26/2021 : Nodular margins, cirrhosisG et an apt with GI hepatology Dr Roberts also, has seen Anastasia Francisco in 01/2021 Anastasia Gandhi 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 02/13/2023 , f/u in 6 monthsUS liver 03/13/2022 , see case Moderate r ecurrent major depression 47719101 F33.1 On venlafaxin e ER 75mgs dailyDoes wellNot suicidal or homicidalD eclines any referral to psychiatry Can renew when needed Essential hypertension 31103782 I10 On lisinopril 5mgOn metoprolol ER 25mg daily, may need to adjust this COVID-19 870052530 U07.1 +ve 10/29/2022 , see case 10/29/2022 Pain of ri ght shoulder joint 3759996029 8217546 M25.511 Dr Raoms 10/01/2022 , s/p kenalog Chronic ki dney disease 204539470 N18.[address] Darren MAY Chronic neck pain 045507 2887 107 M54.2 Get Xray C-spineIf not better, get PT and may need to see IPC Xray C-spine 12/02/2022 Screening for malignant neoplasm of colon 102631982 Z12.11 Pruritic rash 48271963 L 28.2 In the groin area, red and itchy, not examined today, no rash at present, would like a refill of nystatin-t deisyinolo ne Low back pain 730386209 M54.50 Xrays noted 06/24/2023 Already on the diclofenac given by Kobe Madrigal on flexerillN eeds another apt with ortho Osteoarthr itis of bilateral hip joints 1381055748 73822 M16.0 Has seen Kobe Madrigal another referral Screening for osteoporosis 956578062 Z13.820 Vitamin D deficiency 347 16664 E55.9 [id number] Aditya lancaster MD [facility] Internal Med Tommy jacinto [address] [facility] [address] , [facility] [place] [address] 11/24/2023 14:36:02 11/24/2023 15:26:53 Screening - NAD 137548373 Z13.9 C-scope: 02/22/2014 : Dr Da SilvaC-sco [...] Type 2 ofe betes mellitus without complication 104088664 E11.9 Not taking metformin ER 500mg bidOn ozempic, does well denies any MCT, MEN2 or pancreatic issues, will increase that ozempic to 1mg weeklyGet labs Does wellNeeds to see her eye Does see Dr Long on 11/02/2020 Does not want heraclio Mast ill refer to Dr Angeles Hyperlipidemia 35402950 E78.5 On rosuvastat in 20mg dailyGet labs Hypothyroidism 62806484 E03.9 On levothyrox ine 100mcgs dailyDoes wellRepeat the labsGet US thyroid Restless legs 41095504 G 25.81 Not on requip now On tizanidine 4mg dailyDoes well Gastroesop hageal reflux disease without esophagitis 840504552 K21.9 S/p EGDOn nexium, take as needed only Does well Sinus tachycardia 173684 01 R00.0 s/p Stress test 08/24/2020 : NegS/p ECHO 08/24/2020 On metoprolol ER 25mg dailyOn lisinopril 5mg dailyDoes well Sees [facility] Dr Auguste last OV 09/19/2021 Thrombocyt openic disorder 692109984 D69.[address] Heart Last OV 03/13/2021 , f/u yearlyLast OV 03/19/2022 , f/u yearlyOV 04/23/2023 : F/u yearly Obstructiv e sleep apnea syndrome 88008856 G47.33 S/p sleep study 12/28/17Is using the CPAP and is very compliant 04/13/2019 : CT Chest: Deysi Butler, no acute intrathora cic process, thyrodi calcificat ions, F/u USOld granulomat os disease Keep apt with [employer] He NP 08/21/2021 [facility] He NP 09/11/2022 Dr Warner last 06/12/2023 , next 12/25/2023 Environmental allergy 42 1303258 T78.49XD On proairOn singulair Does well Forgetful 60907393 R41.3 Get labsS/p MRI brain 06/26/2020 May need to see neurology Pain of bi lateral knee joints 0589063335 43413 M25.561 M25.562 S/p jeff TKRs Dr Ramos 09/17/2021 Cirrhosis of liver 77287 007 K74.60 US Liver 06/26/2020 US liver 07/26/2021 : Nodular margins, cirrhosisG et an apt with GI hepatology Dr Roberts also, has seen Anastasia Francisco in 01/2021 Anastasia Oksana 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 02/13/2023 , f/u in 6 monthsUS liver 03/13/2022 , see case Moderate r ecurrent major depression 26242047 F33.1 On venlafaxin e ER 75mgs dailyDoes wellNot suicidal or homicidalD eclines any referral to psychiatry Can renew when needed Essential hypertension 53263349 I10 On lisinopril 5mgOn metoprolol ER 25mg daily, may need to adjust this COVID-19 013915777 U07.1 +ve 10/29/2022 , see case 10/29/2022 Pain of ri ght shoulder joint 7050055882 7259542 M25.511 Dr Ramos 10/01/2022 , s/p kenalog Chronic ki dney disease 626288078 N18.[address] Banks IJ Chronic neck pain 752769 4902 107 M54.2 Get Xray C-spineIf not better, get PT and may need to see IPC Xray C-spine 12/02/2022 Screening for malignant neoplasm of colon 806454206 Z12.11 Pruritic rash 78975088 L 28.2 In the groin area, red and itchy, not examined today, no rash at present, would like a refill of nystatin-t riamcinolo ne Low back pain 353589218 M54.50 Xrays noted 06/24/2023 Already on the diclofenac given by Kobe Madrigal on flexerillN eeds another apt with ortho Osteoarthr itis of bilateral hip joints 4468461939 31538 M16.0 Has seen Kobe Madrigal another referral Screening for osteoporosis 361608783 Z13.820 Vitamin D deficiency 347 74431 E55.9 [id number] Aditya lancaster MD [facility] [place] j[place] [address] [facility] [address] [place] [address] 12/29/2023 10:48:52 12/29/2023 12:31:05 Screening - NAD 437029723 Z13.9 C-scope: 02/22/2014 : Dr Da SilvaC-sco pe: 07/15/2019 : Dr Da Silva Mammogram: 01/13/17: Neg, 01/14/18: Neg 9: Neg01/04/2 021: Neg 022: Neg 023: BiRads 3: [...] Type 2 ofe betes mellitus without complication 837462410 E11.9 Not taking metformin ER 500mg bidOn ozempic, does well denies any MCT, MEN2 or pancreatic issues, will increase that ozempic to 1mg weeklyGet labs Does wellNeeds to see her eye MD Does see Dr Long on 11/02/2020 Does not want heraclio Mast ill refer to Dr Angeles Hyperlipidemia 94795746 E78.5 On rosuvastat in 20mg dailyGet labs Hypothyroidism 30762970 E03.9 On levothyrox ine 100mcgs dailyDoes wellRepeat the labsGet US thyroid Restless legs 97407800 G 25.81 Not on requip now On tizanidine 4mg dailyDoes well Gastroesop hageal reflux disease without esophagitis 205096646 K21.9 S/p EGDOn nexium, take as needed only Does well Sinus tachycardia 431812 01 R00.0 s/p Stress test 08/24/2020 : NegS/p ECHO 08/24/2020 On metoprolol ER 25mg dailyOn lisinopril 5mg dailyDoes well Sees [facility] Dr Auguste last OV 09/19/2021 Thrombocyt openic disorder 822089321 D69.[address] Heart Last OV 03/13/2021 , f/u yearlyLast OV 03/19/2022 , f/u yearlyOV 04/23/2023 : F/u yearly Obstructiv e sleep apnea syndrome 62261668 G47.33 S/p sleep study 12/28/17Is using the CPAP and is very compliant 04/13/2019 : CT Chest: Deysi Butler, no acute intrathora cic process, thyrodi calcificat ions, F/u USOld granulomat os disease 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/21/2021 [employer] He [employer]LECT[employer]ICAL MAN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 09/11/2022 Dr Warner last 06/12/2023 , next 12/25/2023 Environmental allergy 42 9976486 T78.49XD On proairOn singulair Does well Forgetful 07062414 R41.3 Get labsS/p MRI brain 06/26/2020 May need to see neurology Pain of bi lateral knee joints 0807965452 89754 M25.561 M25.562 S/p jeff TKRs Dr Ramos 09/17/2021 Cirrhosis of liver 28930 007 K74.60 US Liver 06/26/2020 US liver 07/26/2021 : Nodular margins, cirrhosisG et an apt with GI hepatology Dr Roberts also, has seen Anastasia Francisco in 01/2021 Anastasia Gandhi ELECT[employer] MAN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 02/13/2023 , f/u in 6 monthsUS liver 03/13/2022 , see case Moderate r ecurrent major depression 15497371 F33.1 On venlafaxin e ER 75mgs dailyDoes wellNot suicidal or homicidalD eclines any referral to psychiatry Can renew when needed Essential hypertension 03179327 I10 On lisinopril 5mgOn metoprolol ER 25mg daily, may need to adjust this COVID-19 897481240 U07.1 +ve 10/29/2022 , see case 10/29/2022 Pain of ri ght shoulder joint 6876898295 3293803 M25.511 [address] Ramos 10/01/2022 , s/p kenalog Chronic ki dney disease 644391210 N18.[address] Darren MAY Chronic neck pain 732530 7972 107 M54.2 Get Xray C-spineIf not better, get PT and may need to see IPC Xray C-spine 12/02/2022 Screening for malignant neoplasm of colon 110123114 Z12.11 Pruritic rash 62702628 L 28.2 In the groin area, red and itchy, not examined today, no rash at present, would like a refill of nystatin-t charlieo ne Low back pain 383605394 M54.50 Xrays noted 06/24/2023 Already on the diclofenac given by Kobe Madrigal on flexerillN eeds another apt with ortho Osteoarthr itis of bilateral hip joints 7569358469 89124 M16.0 Has seen Kobe Madrigal another referral Screening for osteoporosis 929062440 Z13.820 Vitamin D deficiency 347 96029 E55.9 Renewal of prescription 335222119 Z76.0 [id number] Aditya lancaster MD [facility] [address] [facility] [address] [place] [address] 03/31/2024 14:20:58 03/31/2024 15:22:27 Screening - NAD 865340371 Z13.9 C-scope: 02/22/2014 : Dr Da SilvaC-sco [...] Type 2 ofe betes mellitus without complication 515807783 E11.9 Not taking metformin ER 500mg bidOn ozempic, does well denies any MCT, MEN2 or pancreatic issues, ozempic to 1mg weekly, can increase to 1.7mg weeklyGet labs Does wellNeeds to see her eye MD Does see Dr Long on 11/02/[address] Faustinw ill refer to Dr Angeles Hyperlipidemia 60579611 E78.5 On rosuvastat in 20mg dailyGet labs Hypothyroidism 82569659 E03.9 On levothyrox ine 100mcgs dailyDoes wellRepeat the labsGet US thyroid Restless legs 46860385 G 25.81 Not on requip now On tizanidine 4mg dailyDoes well Gastroesop hageal reflux disease without esophagitis 861892152 K21.9 S/p EGDOn nexium, take as needed only Does well Sinus tachycardia 434283 01 R00.0 s/p Stress test 08/24/2020 : NegS/p ECHO 08/24/2020 Not on metoprolol ER 25mg dailyNot on lisinopril 5mg dailyOn olmesartan 5mg daily Dr Dickson well Sees [facility] Dr Auguste Thrombocyt openic disorder 580285526 D69.[address] Heart Last OV 03/13/2021 , f/u yearlyLast OV 03/19/2022 , f/u yearlyOV 04/23/2023 : F/u yearly Obstructiv e sleep apnea syndrome 08367655 G47.33 S/p sleep study 12/28/17Is using the CPAP and is very compliant 04/13/2019 : CT Chest: Deysi Butler, no acute intrathora cic process, thyrodi calcificat ions, F/u USOld granulomat os disease 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/21/2021 [facility] ELECTRICAL MAN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 09/11/2022 Dr Warner Environmental allergy 42 [id number] T78.49XD On proairOn singulair Does well Forgetful 11110240 R41.3 Get labsS/p MRI brain 06/26/2020 May need to see neurology Pain of bi lateral knee joints [id number] 67592 M25.561 M25.562 S/p jeff TKRs Dr Ramos 09/17/2021 Cirrhosis of liver 98938 007 K74.60 US Liver 06/26/2020 US liver 07/26/2021 : Nodular margins, cirrhosisG et an apt with GI hepatology Dr Roberts also, has seen Anastasia Francisco in 01/2021 Anastasia Oksana ELECTRICAL MAN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 02/13/2023 , f/u in 6 monthsUS liver 03/13/2022 , see case Moderate r ecurrent major depression [id number] F33.1 On venlafaxin e ER 75mgs dailyDoes wellNot suicidal or homicidalD eclines any referral to psychiatry Can renew when needed Essential hypertension 26123117 I10 Off lisinopril 5mgOff metoprolol ER 25mg daily, may need to adjust thisOn olmesartan COVID-19 051033186 U07.1 +ve 10/29/2022 , see case 10/29/2022 Pain of ri ght shoulder joint [id number] 0416748 M25.511 Dr Ramos 10/01/2022 , s/p kenalog S/p MRI 03/10/2024 Dr Leyva Chronic ki dney disease 699992858 N18.[address] Darren Ying sees Dr Arora Chronic neck pain 618519 2969 107 M54.2 Get Xray C-spineIf not better, get PT and may need to see IPC Xray C-spine 12/02/2022 Screening for malignant neoplasm of colon 195505593 Z12.11 Pruritic rash 99307078 L 28.2 In the groin area, red and itchy, not examined today, no rash at present, would like a refill of nystatin-t riamcinolo ne Low back pain 486245550 M54.50 Xrays noted 06/24/2023 Already on the diclofenac given by Kobe Madrigal on flexerillN eeds another apt with ortho Osteoarthr itis of bilateral hip joints [id number] 23498 M16.0 Has seen Kobe Madrigal another referral Screening for osteoporosis 310954231 Z13.820 Vitamin D deficiency 347 23961 E55.9 Health Concerns Section Related Observation LastModified by Organization Detai ls LastModified Time None Recorded Concern Status LastModified by Organization Details LastModified Time None Recorded Advance Directives Directive Y: asked to bring copy for c florez Payers Encounter Date Sequence Insurance Name Policy Number Policy Bush Covered Member ID Bush Member ID Guarantor Name 06/25/2023 1 [employer] (MEDICARE REPLACEMENT PPO) [id number] 1 Mercedes Shanks Zeisset [id number] Mercedes L Zeisset 08/18/2023 1 [employer] (MEDICARE REPLACEMENT PPO) [id number] 1 Mercedes L Zeisset [id number] Mercedes L Zeisset 11/24/2023 1 [employer] (MEDICARE REPLACEMENT PPO) [id number] 1 Mercedes L Zeisset [id number] Mercedes L Zeisset 12/29/2023 1 [employer] (MEDICARE REPLACEMENT PPO) [id number] 1 Mercedes L Zeisset [id number] Mercedes L Zeisset 03/31/2024 1 [employer] (MEDICARE REPLACEMENT PPO) [id number] 1 Mercedes L Zeisset [id number] Mercedes L Zeisset Notes Date Note Type [...] review theseShe did see Dr Heart the organic chemistry teacher and is now to see a hepatologistOV 09/21/18:Here for her routine aptShe has some redness in the L lower leg, did have a DVT last use of xarelto was in 05/28No recent labsNo other complaints at this timeOV 10/21/18:Here for her routine aptShe did do labsShe here with her husbandDoing wellOV 01/25/19:Here for her routine aptShe has not done the labs as yetShe did see the ortho ANTWAN Pelaez for [...] or bladder control Aditya Joyce MD [address] [facility], [place], [address], [facility] [employer] 06/25/2023 17:50:17 08/18/2023 text/html Here to darnell [...] review theseShe did see Dr Heart the organic chemistry teacher and is now to see a hepatologistOV 09/21/18:Here for her routine aptShe has some redness in the L lower leg, did have a DVT last use of xarelto was in 05/28No recent labsNo other complaints at this timeOV 10/21/18:Here for her routine aptShe did do labsShe here with her husbandDoing wellOV 01/25/19:Here for her routine aptShe has not done the labs as yetShe did see the ortho ANTWAN Pelaez for [...] for her MWV also Aditya Joyce MD [address] [place] [address], [facility] [address], [place], [address], [facility] - S Dakim 08/18/2023 16:55:21 11/24/2023 text/html Here to darnell [...] review theseShe did see Dr Heart the organic chemistry teacher and is now to see a hepatologistOV [...] get the dose increased Aditya Joyce MD [address] [place] [address], [facility] [address], [place], [address], [place] [facility] [employer] 11/24/2023 15:28:52 12/29/2023 text/html Here to darnell [...] review theseShe did see Dr Heart the organic chemistry teacher and is now to see a hepatologistOV [...] labs as Kosta did see the ortho PA Benigno for her R hip painOtherwise she feels [...] well today Aditya Joyce MD [address], [place], [address], [place] [facility] 12/29/2023 19:12:55 03/31/2024 text/html Here to darnell [...] review theseShe did see Dr Heart the organic chemistry teacher and is now to see a hepatologistOV [...] do the labs Aditya Joyce MD [address] [facility], [facility] [address], [place], [address], [facility] - [facility] 03/31/2024 18:29:56 OBGyn Episode No OBEpisode recorded.
--- OUTSIDE RECORDS SUMMARY | 2024-06-14 14:07 | XMS_ITS | Continuity of Care Document ---
Author Organization [facility] [place] [address] [place] [address] [address] [place] [address] Phone Care Team Providers Care Wastewater Operator Name Role Phone Jurgen Diallo Unavailable Unavailable Procedures Procedure Date Post-op Follow-up Visit Post-op Follow-up Visit Remove Cataract, Insert Lens Eye Exam, New Patient Echo Exam Of Eye Advance Directives Directive Yes / No Effective Date File Name No Information Encounters Encounter Description Practice Location Reason(s) For Visit Diagnoses Date Provider Providers Copied on Encounter [facility], [address] [place] [address] [address], [place], [place], [id number], tel:[phone] [facility] No Information [address] [place] [address] , [address], [place], [place], [facility], . tel:[phone] Referring Provider: Fernie Byers, [address] [place] [address], [facility]. tel:[phone] [facility], [address] [place] [address] [address], [place], [place], [id number], tel:[phone] [facility] No Information [address] Seaman[address] [place] [address] , [address], [place], [place], [facility], [place]. tel:[phone] Referring Provider: Fernie Byers, [address] [place] [address], [facility]. tel:[phone] [facility], [address] [facility], [place], [place], [address], tel:[phone] [facility] No Information [facility]. [address] [facility] , [address], [place], [place], [facility], . tel:[phone] Referring Provider: Fernie Byers, [address] [place] [address], [facility]. tel:[phone] [facility], [address], [place], [place], [address], tel:[phone] [facility] No Information [facility] [place]. [facility] [facility] , [address], [place], [place], [facility], . tel:[phone] Referring Provider: Fernie Byers, [address] [place] [address], [facility]. tel:[phone] Family History Family Member Type Diagnosis Age [...]
== END 2024-06-14 15:03 | disposition home or self-care (01) ==
PROVIDERS: Emergency Provider Emergency Medicine; PCP Internal Medicine
DX: M16.11 Unilateral primary osteoarthritis, right hip (principal); E78.5 Hyperlipidemia, unspecified; I10 Essential (primary) hypertension
CPT/HCPCS: 73502; 96372; 99283; J1885

== ENCOUNTER 2024-07-28 09:39 | Outpatient (CLI) | payer MEDICARE, SELFPAY ==
--- OUTSIDE RECORDS SUMMARY | 2024-07-28 10:57 | XMS_ITS | Clinical Summary ---
Author Organization [facility] Address [address] [place] [address] Care Team Providers Care Communications Department Head Name Role Phone Soy Joyce MD Primary [...] Encounters Date Type Department Care Team Description 07/27/2024 External Device Data STL ABSTRACTION Provider, Abstract 04/28/2024 Orders Only [facility] Oncology and Hematology [facility] [address] [place] [phone] Danny Heart MD 04/27/2024 11:00 AM CDT Office Visit [facility] Oncology and Hematology [facility] [address] [place] [address] Danny Haert MD Other secondary thrombocytopenia (Primary Dx) from [...] 11:26 AM CDT Height 163.8 cm (5' 4.5) 03/13/2021 10:16 AM CS T Body Mass Index 37.08 03/13/2021 10:16 AM INSTALLMENT AGENT Plan of Treatment Upcoming Encounters Date Type Department Care Team (Late st Contact Info) Description 01/25/2025 11:30 AM INSTALLMENT AGENT Office Visit [facility] Oncology and Hematology [facility] [address] [place] [address] Danny Heart MD [address] [facility] [address] [place] [address] Health Maintenance Due Date Last Done [...] Comments HEMOGLOBIN A1C Routine 03/24/2024 3:34 PM INSTALLMENT AGENT LIPID PANEL Routine 06/21/2020 MICROALBUMIN, RANDOM URINE Routine 02/24/2020 from Last 3 Months or Most Recently Relevant to Health Maintenance Results * HEMOGLOBIN A1C (03/24/2024 3:34 PM INSTALLMENT AGENT) Blood us Danny Heart MD CHEMISTRY ORDERABLES Final Resu lt * LIPID PANEL (06/21/2020) Blood us Abstract Provider CHEMISTRY ORDERABLES Final Res ult * MICROALBUMIN, RANDOM URINE (02/24/2020) Urine URINE SPECIMEN OBTAINED BY CLEAN CATCH PROCEDURE / Unknown us Abstract Provider URINE ORDERABLES Final Result from Last 3 Months or Most Recently Relevant to Health Maintenance Insurance O MCR Care Teams Communications Department Head Relationship Specialty Start Date End Date Soy Joyce MD PCP - General Internal Medicine 12/23/17
--- OUTSIDE RECORDS SUMMARY | 2024-07-28 10:57 | XMS_ITS | Clinical Summary ---
Author Organization [facility] Facility Address [address] [place] [address] Care Team Providers Care Secondary Education Professor Name Role Phone Soy Joyce MD Primary Care Provider [phone] Medications olmesartan (BENICAR) 5 MG tablet TAKE 1 TABLET(5 MG) BY MOUTH 1 TIME EACH DAY 90 tablet 1 06/18/2024 Active Encounters Date Type Department Care Team Description 06/18/[address] [facility] [address] [phone] Antwan Arora DO 05/25/[address] [facility] [address] [phone] Antwan Arora DO from Last 3 Months [...] Comments Blood Pressure 110/60 03/02/2024 3:49 PM DATA PROCESSING EQUIPMENT REPAIRER Pulse 68 03/02/2024 3:49 PM DATA PROCESSING EQUIPMENT REPAIRER Temperature 36.7 C (98 F) 03/02/2024 3:49 PM DATA PROCESSING EQUIPMENT REPAIRER Respiratory Rate 18 03/02/2024 3:49 PM DATA PROCESSING EQUIPMENT REPAIRER Oxygen Saturation 97% 03/02/2024 3:49 PM DATA PROCESSING EQUIPMENT REPAIRER Inhaled Oxygen Concentration - - Weight 99.3 kg (219 lb) 03/02/2024 3:49 PM DATA PROCESSING EQUIPMENT REPAIRER Height - - Body Mass Index - - Plan of Treatment Upcoming Encounters Date Type Department Care Team (Late st Contact Info) Description 08/31/2024 12:30 PM CDT Office Visit [facility] [address] [facility] [address] [place] [phone] Antwan Arora DO [address] [place] [address] Health Maintenance Due Date Last [...] Insurance [employer] [facility] Adv PPO ([id number]) Advance Directives Documents on File Type Date Recorded Patient Peoplesoft Developer Expl anation Advance Care Planning 01/02/2024 12:13 PM Care Teams Secondary Education Professor Relationship Specialty Start Date End Date Soy Joyce MD [address] [facility], [address] [place] [address] PCP - General Internal Medicine 09/25/23
--- OUTSIDE RECORDS SUMMARY | 2024-07-28 10:58 | XMS_ITS | Encounter Summary ---
Author Organization [facility] Address [address] [place] [address] Care Team Providers Care Template Inspector Name Role Phone Soy Joyce MD Primary Care Provider Encounter Details Date Type Department Care Team (Late st Contact Info) Description 07/27/2024 External Device Data STL ABSTRACTION Provider, Abstract NO ADDRESS ON FILE Social History Tobacco Use Types Packs/Day Years Used Date Smoking Tobacco: Never Smokeless Tobacco: Never Alcohol Use Standard Drinks/Week Comments No 0 (1 standard drink = 0.6 oz pur e alcohol) Comments No Sex and Gender Information Value Date Recorded Sex Assigned at Not on file Legal Sex Female 1:42 PM CDT Gender Identity Not on file Sexual Orientation Not on file documented as of this encounter Plan of Treatment Upcoming Encounters Date Type Department Care Team (Late st Contact Info) Description 01/25/2025 11:30 AM SUPERVISOR SPEECH Office Visit [facility] Oncology and Hematology - [place] [address] [place] [address] [facility] [address] [place] [phone] [place] [address] [place] [address] [address] [place] [address] documented as of this encounter Visit Diagnoses Not on filedocumented in this encounter Care Teams Template Inspector Relationship Specialty Start Date End Date Soy Joyce MD PCP - General Internal Medicine 12/23/17 documented as of this encounter
--- OUTSIDE RECORDS SUMMARY | 2024-07-28 10:58 | XMS_ITS | Clinical Summary ---
Author Organization [facility] Address [address] [place] [address] Care Team Providers Care Unpaid Intern Name Role Phone Soy Joyce MD Primary Care Provider Source Comments [facility],non-owned Affiliates and Associated Physician Practices is amultiple site organization consisting of ambulatory clinics and hospital sitesin [place], [place], [place] and [place]. This disclosure is being madepursuant to the Care Everywhere program and may not contain all information available regarding this patient. Last updated 17.[facility] Allergies No known active allergies Medications * [...] by mouth 2 times daily Active Multiple Vitamins-Steam And Power Superintendent als (WOMENS MULTI VITAMIN & MINERAL PO) [...] Encounters Date Type Department Care Team Description 07/26/2024 3:13 PM CDT - 07/26/2024 11:59 PM CDT Hospital Encounter [facility] [address] [place] [address] Anastasia Gandhi, WORKFORCE ADVISOR-HAND FUNNEL COATER Discharge Disposition: Home or Self Care 07/26/2024 Travel from Last 3 Months Social History [...] Comments Blood Pressure 133/72 03/04/2024 10:58 AM EXCHANGE ENGINEER Pulse 92 03/04/2024 10:58 AM EXCHANGE ENGINEER Temperature 37.2 C (99 F) 03/04/2024 10:58 AM EXCHANGE ENGINEER Respiratory Rate 18 02/13/2023 10:1 3 AM EXCHANGE ENGINEER Oxygen Saturation 95% 03/04/2024 10: 58 AM EXCHANGE ENGINEER Inhaled Oxygen Concentration - - Weight 100.1 kg (220 lb 9.6 oz) 025 10:58 AM EXCHANGE ENGINEER Height 165.1 cm (5' 5) 03/04/2024 10:5 8 AM EXCHANGE ENGINEER Body Mass Index 36.71 03/04/2024 10:58 AM EXCHANGE ENGINEER Plan of Treatment Upcoming Encounters Date Type Department Care Team (Late st Contact Info) Description 08/09/2024 10:00 AM CDT Office Visit [facility] [address] [place] [id number] Anastasia Gandhi, WORKFORCE ADVISOR-HAND FUNNEL COATER [address] [facility] [address] [place] [address] Health Maintenance Due Date Last Done Comments [...] Medication Management General On track( 10:55 AM EXCHANGE ENGINEER) No Lana Shultz, RN Note: Expected end date: Ongoing Interventions: Take all medications as prescribed Let your doctor know right away about any changes in your medications Make sure to request a refill of your medication at least one week prior to your last dose Safety General On track( 11:03 AM EXCHANGE ENGINEER) No Neida Javed RN Note: Expected end [...] Diagnosis Comments MRI ABDOMEN WWO CONTRAST Routine 07/26/2024 4:09 PM CDT 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Hepatic cirrhosis and portal hypertension. 2.Previously described 1.5 cm arterial enhancing observation the segment 2 is no longer present. No enhancing liver lesion on the prior study. > Interpreting Provider: Octaviano Llanos MD on 07/27/2024 9:23 AM Narrative 07/27/2024 9:23 AM CDT PROCEDURE: MRI ABDOMEN WWO CONTRAST DATE/TIME OF EXAM: 07/26/2024 4:09 PM CLINICAL INFORMATION: None relevant/not provided if blank. 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 CONTRAST: GADOBENATE DIMEGLUMINE 529 MG/ML IV SOLN:20 mL FINDINGS: Lower Chest: Lung bases are clear. No pleural effusion seen. Hepatobiliary system Liver morphology: Lobulated outline of the liver with enlargement of the caudate lobe and widening of the hepatic fissure consistent with cirrhosis. Steatosis: There is mild diffuse hepatic steatosis. Iron: None. Varices: None. Spleen: Borderline (measures 12.5 cm). Multiple T2 high signal intensity nodules noted throughout the splenic parenchyma. Ascites: None. Focal liver observations Previously described 1.5 cm arterial enhancing observation in the segment 2 of the left lobe adjacent is no longer present. Hepatic vasculature Portal and hepatic veins: Patent. Arterial anatomy: Conventional. Biliary system: Gallbladder: Gallbladder is not visualized. Intrahepatic and extrahepatic bile ducts: No biliary dilation. Pancreas: Pancreas is normal morphology and signal intensity. No focal lesions seen. Pancreatic duct: Pancreatic duct is nondilated. There is a 2 mm cystic lesion of the pancreatic tail likely a side branch intraductal papillary mucinous neoplasm. (Series 3, Image 28) Retroperitoneum Adrenals: Unremarkable. Kidneys: Normal bilateral kidneys. A few small cysts are seen in the liver. Lymph nodes: No significantly enlarged retroperitoneal or mesenteric lymph node enlargement. Blood vessels: Aorta and inferior vena cava are unremarkable. Gastrointestinal: Stomach and visualized small bowel loops and colon are unremarkable. Other findings: None. Procedure Note Octaviano Llanos MD - 07/27/2024 PROCEDURE: MRI ABDOMEN WWO CONTRAST DATE/TIME OF EXAM: 07/26/2024 4:09 PM CLINICAL INFORMATION: None relevant/not provided if blank. 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 CONTRAST: GADOBENATE DIMEGLUMINE 529 MG/ML IV SOLN:20 mL FINDINGS: Lower Chest: Lung bases are clear. No pleural effusion seen. Hepatobiliary system Liver morphology: Lobulated outline of the liver with enlargement of the caudate lobe and widening of the hepatic fissure consistent withcirrhosis. Steatosis: There is mild diffuse hepatic steatosis. Iron: None. Varices: None. Spleen: Borderline (measures 12.5 cm). Multiple T2 high signal intensity nodules noted throughout the splenic parenchyma. Ascites: None. Focal liver observations Previously described 1.5 cm arterial enhancing observation in the segment2 of the left lobe adjacent is no longer present. Hepatic vasculature Portal and hepatic veins: Patent. Arterial anatomy: Conventional. Biliary system: Gallbladder: Gallbladder is not visualized. Intrahepatic and extrahepatic bile ducts: No biliary dilation. Pancreas: Pancreas is normal morphology and signal intensity. No focal lesions seen. Pancreatic duct: Pancreatic duct is nondilated. There is a2 mm cystic lesion of the pancreatic tail likely a side branch intraductal papillary mucinous neoplasm. (Series 3, Image 28) Retroperitoneum Adrenals: Unremarkable. Kidneys: Normal bilateral kidneys. A few small cysts are seen in theliver. Lymph nodes: No significantly enlarged retroperitoneal or mesentericlymph node enlargement. Blood vessels: Aorta and inferior vena cava are unremarkable. Gastrointestinal: Stomach and visualized small bowel loops and colon are unremarkable. Other findings: None. Impression: 1.Hepatic cirrhosis and portal hypertension. 2.Previously described 1.5 cm arterial enhancing observation the segment2 is no longer present. No enhancing liver lesion on the prior study. > Interpreting Provider: Octaviano Llanos MD on 07/27/2024 9:23 AM Anastasia Gandhi WORKFORCE ADVISOR-HAND FUNNEL COATER MR ORDERABLES Fin al Result * (ABNORMAL) COMPREHENSIVE METABOLIC PANEL (03/04/2024 12:25 PM [facility]) BUN 16 7 - 26 mg/dL 03/04/2024 12:59 PM [facility] Creatinine 0.92 0.56 - 0.96 mg/dL 03/04/2024 12:59 PM [facility] Sodium 141 136 - 145 mmol/L 03/04/2024 12:59 PM [facility] Potassium 4.6(H) 3.5 - 4.5 mmol/L 03/04/2024 12:59 PM [facility] Chloride 106 98 - 107 mmol/L 03/04/2024 12:59 PM [facility] CO2 26 22 - 29 mmol/L 03/04/2024 12:59 PM [facility] Glucose 110(H) 70 - 99 mg/dL 03/04/2024 12:59 PM [facility] Calcium 9.7 8.4 - 10.2 mg/dL 03/04/2024 12:59 PM [facility] Protein Total 7.5 6.0 - 8.3 g/dL 03/04/2024 12:59 PM [facility] Albumin 4.0 3.4 - 5.0 g/dL 03/04/2024 12:59 PM [facility] Bilirubin Total 0.6 0.2 - 1.2 mg/dL 03/04/2024 12:59 PM [facility] Alkaline Phosphatase 51 40 - 150 U/L 03/04/2024 12:59 PM [facility] ALT 26 5 - 55 U/L 03/04/2024 12:59 PM [facility] AST 30 5 - 34 U/L 03/04/2024 12:59 PM [facility] Anion Gap 9 6 - 16 03/04/2024 12:59 PM [facility] BUN/Creatinine Ratio 17 7 - 23 03/04/2024 12:59 PM [facility] Osmolality Calculated 294 275 - 295 mOsm/kg 03/04/2024 12:59 PM [facility] Albumin/Globulin Ratio 1.1 1.1 - 2.3 03/04/2024 12:59 PM [facility] eGFR by CKD-EPI 63(L) >=90 mL/min/1.7 3 m2 03/04/2024 12:59 PM [facility] Blood BLOOD SPECIMEN / Unknown Lab Venipuncture / Unknown 03/04/2024 12:25 PM EXCHANGE ENGINEER 03/04/2024 12:32 PM EXCHANGE ENGINEER Anastasia Gandhi WORKFORCE ADVISOR-HAND FUNNEL COATER LAB - CHEMISTRY ORD ERABLES Final Result [facility] [address] [place] [address], [facility] [phone] * MICROALB/CREAT RATIO URINE (EXTERNAL RESULT ENTRY) (11/27/2022 9:45 AM CDT) Microalb/Creat Ratio (EXTERNAL RESULT) 84.4 mg/g OTHER LAB Urine URINE / Unknown 11/27/2022 9 :45 AM CDT Historical Provider LAB - URINE CHEMISTRY ORD ERABLES Final Result OTHER LAB * HEMOGLOBIN A1C (EXTERNAL RESULT ENTRY) (11/27/2022 9:45 AM CDT) Hemoglobin A1c (EXTERNAL RESULT) 5.6 % OTHER LAB Blood BLOOD SPECIMEN / Unknown 11/27/2022 9:45 AM CDT Historical Provider LAB - CHEMISTRY ORDERABLE S Final Result OTHER LAB from Last 3 Months or Most Recently Relevant to Health Maintenance Insurance AETNA AET MEDICARE ADV Care Teams Unpaid Intern Relationship Specialty Start Date End Date Soy Joyce MD [address] [address] PCP - General 02/04/21
--- OUTSIDE RECORDS SUMMARY | 2024-07-28 10:58 | XMS_ITS | Continuity of Care Document ---
Author Organization [facility] [place] Address [address] [place] [address] [address] [place] [address] Phone Care Team Providers Care Criminalist Technician Name Role Phone Jurgen Diallo Unavailable Unavailable Procedures Procedure Date Post-op Follow-up Visit Post-op Follow-up Visit Remove Cataract, Insert Lens Eye Exam, New Patient Echo Exam Of Eye Advance Directives Directive Yes / No Effective Date File Name No Information Encounters Encounter Description Practice Location Reason(s) For Visit Diagnoses Date Provider Providers Copied on Encounter [facility], [address] [place] [address] [address], [place], [place], [id number], tel:[phone] [facility] No Information [address]. [address] [place] [address] , [address], [place], [place], [facility], . tel:[phone] Referring Provider: Fernie Byers, [address] [place] [address], [facility]. tel:[phone] [facility], [address] [place] [address] [address], [place], [place], [id number], tel:[phone] [facility] No Information [address]. [address] [place] [address] , [address], [place], [place], [facility], [place]. tel:[phone] Referring Provider: Fernie Byers, [address] [place] [address], [facility]. tel:[phone] [facility], [address], [place], [place], [id number], tel:[phone] [facility] No Information [facility] Edward. [address] [facility] , [address], [place], [place], [facility], . tel:[phone] Referring Provider: Fernie Byers, [address] [place] [address], [facility]. tel:[phone] [facility], [address] [place] [address], [place], [place], [id number], tel:[phone] [facility] No Information [facility] [place]. [facility] [facility] , [address], [place], [facility], . tel:[phone] Referring Provider: Fernie Byers, [address] [place] [address], [facility]. tel:[phone] Family History Family Member Type Diagnosis Age [...]
--- OUTSIDE RECORDS SUMMARY | 2024-07-28 10:58 | XMS_ITS | CONTINUITY OF CARE DOCUMENT ---
Author Name amira collier Address Unknown Organization [facility] Address [address] [facility] [address] [place] [address] Phone [phone] Care Team Providers Care Printed Circuit Board Panels Deburrer Name Role Phone Stacy Auguste MD Unavailable ADITYA LOPEZ MD Unavailable [phone] ADITAY LOPEZ MD Unavailable PROBLEMS Condition Status Date [...] In-person encounter Office Visit Stacy Auguste MD [facility] Office - In-person encounter Office Visit Stacy Auguste MD [facility] Preoperative cardiovascular examination - In-person encounter Office Visit Stacy Auguste MD [facility] - In-person encounter Office Visit Stacy Auguste MD [facility] - In-person encounter Office Visit Stacy Auguste MD [facility] - In-person encounter Office Visit Stacy Auguste MD [facility] Shortness of breath with exertion - In-person encounter Office Visit Stacy Auguste MD [facility] - In-person encounter Office Visit Stacy Auguste MD [facility] Diabetes mellitus - In-person encounter Office Visit Stacy Auguste MD [facility] - In-person encounter Office Visit Stacy Auguste MD [facility] Venous insufficiency - In-person encounter Office Visit Stacy Auguste MD [facility] Family History of CVA or Stroke:Family History of Hyperlipidemia:Family History of Hypertension:Family History of Hyperlipidemia:Family History of Hypertension:MINA - On CPAPHTN essential - In-person encounter Office Visit Stacy Auguste MD [facility] HTN essential - In-person encounter Office Visit Stacy Auguste MD [facility] HypothyroidismOSA - On CPAPHyperlipidemiaHx of DVT, treated w XareltoGERDAbnormal LFT'sObesity VITAL SIGNS Date Observation Value Provider Body Mass Index (Ratio) 36.44 kg/m2 Alexander Auguste MD blood pressure, diastolic 71 mm[Hg] [facility] [place] blood pressure, systolic 149 mm[Hg] Regina loving [place] oxygen saturation, oximetry 97 % [facility] pulse [facility] 86 /min [facility] respiratory rate E&M 12 /min [facility] weight E&M 219 [lb_av] [facility] height E&M 65 [in_i] [facility] blood pressure, cuff size regular [facility] Body Mass Index (Ratio) 36.61 kg/m2 Dileep jose Chapaty blood pressure, diastolic 75 mm[Hg] [facility] blood pressure, systolic 118 mm[Hg] [facility] saturation, oximetry 99 % [facility] pulse rate 110 /min [facility] respiratory rate E&M 12 /min [facility] weight E&M 220 [lb_av] [facility] height E&M 65 [in_i] [facility] blood pressure, cuff size regular [facility] Body Mass Index (Ratio) 37.77 kg/m2 [...] ha O'Jamison blood pressure, systolic 132 mm[Hg] [facility] O[facility]Jam[place] oxygen saturation, oximetry 93 % Marla O'Jamison respiratory rate E&M 16 /min Marla O'Jamison pulse rate 95 /min Marla O'Jamison weight E&M 235 [lb_av] Marla O'Jamison height E&M 65 [in_i] Marla O'Jamison Body Mass Index (Ratio) 38.10 kg/m2 Alexander Auguste MD blood pressure, cuff size regular Kr isty Cordelia pulse rate 103 /min Devika [place] oxygen saturation, oximetry 97 % Devika [place] blood pressure, diastolic 70 mm[Hg] Leo Colon [...] [lb_av] Frances Pelayobel l temperature site temporal [facility] temperature E&M 97.5 [degF] Rosaura [...] MD blood pressure, diastolic 70 mm[Hg] [facility] blood pressure, systolic 130 mm[Hg] Missy shearer [place] oxygen saturation, oximetry 97 % [facility] respiratory rate E&M 16 /min [facility] pulse rate 79 /min [facility] weight E&M 227 [lb_av] [facility] height E&M 65 [in_i] [facility] Body Mass Index (Ratio) 37.60 kg/m2 Alexander Auguste MD blood pressure, diastolic 80 mm[Hg] [facility] blood pressure, systolic 140 mm[Hg] Missy shearer [place] oxygen saturation, oximetry 95 % [facility] respiratory rate E&M 16 /min [facility] pulse rate 96 /min [facility] weight E&M 226 [lb_av] Ghent Mendiola height E&M 65 [in_i] Ghent Mendiola Body Mass Index (Ratio) 39.43 kg/m2 Nguyen pankaj Puhse blood pressure, diastolic 88 mm[Hg] Da salas Jurgen blood pressure, systolic 168 mm[Hg] Dac ia Jurgen oxygen saturation, oximetry 94 % Rosanna Jurgen respiratory rate E&M 16 /min Rosanna V oss pulse rate 99 /min Rosanna Jurgen weight E&M 237 [lb_av] Rosanna Jurgen height E&M 65 [in_i] Rosanna [place] Body Mass Index (Ratio) 38.44 kg/m2 Alexander [...] Allergy Relief 50 mcg/actuation spray,suspensio n active [place] into both nostrils twice a day Marla Li alprazolam 0.25 mg tablet active Take 1 tablet by mouth once a day as needed Frances Ellison VITAMIN D (ERGOCALCIFEROL ) 25813 UNIT ORAL CAPSULE completed Take once a [...] Payer name Policy type / Coverage type [place] red democrat ID AETNA MEDICARE ESA PPO Medicare [id number] 100 ADVANCE DIRECTIVES Name Date POWER OF SUPPLY SERVICE WORKER TREATMENT PLAN Date Name Performer [id number],C,C ontinues on Rosuvastatin. We aim for an LDL <70. Stacy Auguste MD [id number],C,T he patient is using CPAP on a regular basis. The patient has been benefiting from therapy and should continue use. Stacy Auguste MD [id number],C,On levothyrox ine. Stacy Auguste MD [id number],C,On metformin 500mg BID. Stacy Auguste MD [id number],C,B P elevated, dietary compliance stressed. Also asked her to increase lisinopril to 10mg daily, and monitor BP on a regular basis. Stacy Auguste MD [id number],C, W eight loss advised Stacy Auguste MD [id number],C, C ontinues on replacement therapy. Stacy Auguste MD [id number],C, C ontinues on Rosuvastatin. We aim for an LDL <70. Stacy Auguste MD [id number],C, C ontinues on Metformin. Stacy Auguste MD [id number],C, H er echo 08/24/2020 showed normal LV function. EF 60%. Nuclear stress test 08/24/2020 showed normal perfusion. The patient has been reassured. Weight reduction advised. Stacy Auguste MD [id number],C, B P today elevated at 150/83. Advised she monitor at home. Stacy Auguste MD [id number],C, A bdominal US 06/2020 showed nodular liver contour suggesting cirrhosis. Follows with VOICE PROFESSOR at [facility] whose name she cannot recall. Will obtain bloodwork from PCP. Stacy Auguste MD [id number],C,T he patient is using CPAP on a regular basis. The patient has been benefiting from therapy and should continue use. Stcay Auguste MD [id number],C,C ontinues on Metformin. Stacy Auguste MD [id number],C,C ontinues on Rosuvastatin. We aim for an LDL <70. Stacy Auguste MD [id number],C,B P control is satisfactory. Stacy Auguste MD [id number],C,H er recent echo 08/24/2020 showed normal LV [...] nodular liver contour suggesting cirrhosis. Follows with VOICE PROFESSOR at [facility] whose name she cannot recall. Will obtain [...] await blood results from your office. Stacy Aguuste MD Cardiology:Elevated blood pressure and heart rate. [...]
--- OUTSIDE RECORDS SUMMARY | 2024-07-28 10:58 | XMS_ITS | Encounter Summary ---
Author Organization [facility] Address [address] [facility] [place] [address] Care Team Providers Care Manufacturing Engineer Chief Name Role Phone Soy Joyce MD Primary Care Provider Reason for Visit * Radiology Services (Routine) - Closed Specialty Diagnoses / Procedures Referred By Sommer ordonez Referred To Contact MRI Diagnoses 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) Procedures MRI Abdomen Wwo Contrast Anastasia Gandhi APRN-MERCHANDISING EXECUTION MANAGER [address] [facility] [address] [place] [address] Phone: tel: fax: Referral ID Status Reason Start Date Expiration Date Visits Re quested Visits Authorized [id number] Closed 07/16/2024 2025 1 1 Encounter Details Date Type Department Care Team (Late st Contact Info) Description 07/26/2024 3:13 PM CDT - 07/26/2024 11:59 PM CDT Hospital Encounter [facility] MRI [address] [place] [address] Anastasia Gandhi MACHINE ZIPPER TRIMMER-MERCHANDISING EXECUTION MANAGER [address] [facility] [address] DIV OF GASTROENTEROLOGY [place], [place] [id number] Discharge Disposition: Home or Self Care Social History Tobacco Use Types Packs/Day Years Used Date Smoking Tobacco: Never Smokeless Tobacco: Never Alcohol Use Standard Drinks/Week Comments Never 0 (1 standard drink = 0.6 oz pur e alcohol) Comments No Sex and Gender Information Value Date Recorded Sex Assigned at Not on file Legal Sex Female 3:03 PM CDT Gender Identity Not on file Sexual Orientation Not on file documented as of this encounter Medications at Time of Discharge CRANBERRY PO Take 500 mg by mouth once daily diclofenac sodium EC (Voltaren) 75 MG tablet Take 1 (one) tablet by mouth 2 times daily levothyroxine (Synthroid) 100 MCG tablet Take 1 (one) tablet by mouth once daily levothyroxine (SYNTHROID) 150 MCG tablet Take 100 mcg by mouth daily before breakfast 06/12/2020 Multiple Vitamins-Minera ls (WOMENS MULTI VITAMIN & MINERAL PO) Take by mouth once daily olmesartan (Benicar) 5 MG tablet Take 1 (one) tablet by mouth once daily 12/30/2023 Ozempic, 1 MG/DOSE, 4 MG/3ML pen Inject 1 (one) mg subcutaneously every 7 days 11/24/2023 rosuvastatin (Crestor) 20 MG tablet Take 1 (one) tablet by mouth once daily 03/31/2021 venlafaxine XR 24hr (EFFEXOR XR) 75 MG capsule venlafaxine ER 75 mg capsule,extended release 24 hr TAKE 1 CAPSULE BY MOUTH EVERY DAY. CONTACT CLINIC IF CHANGE IN MOOD OR BEHAVIOR. NO ALCOHOL DRIVING OR WITH SEDATING MEDICATIONS documented as of this encounter Plan of Treatment Upcoming Encounters Date Type Department Care Team (Late st Contact Info) Description 08/09/2024 10:00 AM CDT Office Visit [facility] - GI [address] [facility], [place] [phone] Anastasia Gandhi, MACHINE ZIPPER TRIMMER-MERCHANDISING EXECUTION MANAGER [address] [place] [address] [facility] [place] [address] documented as of this encounter Goals Goal Patient Goal Type Associated Problems Recent Progress Patient-Stated? Author Medication Management General On track( 025 10:55 AM HEALTH INFORMATION TECHNICIAN) No Lana Shultz, RN Note: Expected end date: Ongoing Interventions: Take all medications as prescribed Let your doctor know right away about any changes in your medications Make sure to request a refill of your medication at least one week prior to your last dose Safety General On track( 025 11:03 AM HEALTH INFORMATION TECHNICIAN) Neida Brooks RN Note: Expected end date: ongoing Interventions: [...] Maintain an unobstructed path to the bathroom documented as of this encounter Procedures Procedure Name Priority Date/Time Associated Diagnosis Comments MRI ABDOMEN WWO CONTRAST Routine 07/26/2024 4:09 PM CDT 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) documented in this encounter Results * MRI Abdomen Wwo Contrast (07/26/2024 [...] MD on 07/27/2024 9:23 AM Anastasia Gandhi MACHINE ZIPPER TRIMMER-MERCHANDISING EXECUTION MANAGER MR ORDERABLES Fin al Result documented in this encounter Visit Diagnoses Diagnosis 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) Other chronic nonalcoholic liver disease documented in this encounter Administered Medications Inactive Administered Medications - up to 3 most recent administrations Medication Order MAR Action Action Date Dose Rate Site gadobenate dimeglumine (Multihance) injection Intravenous, CONTRAST ONCE, Starting on 07/26/24 at 1553, Until Tu07/27/24 at 0141 $ Given - Contrast 07/26/2024 3:54 PM CDT 20 mL documented in this encounter Care Teams Manufacturing Engineer Chief Relationship Specialty Start Date End Date Soy Joyce MD [address] [phone] PCP - General 02/04/21 documented as of this encounter
[2024-07-28 11:15] LABS: Basophils Absolute Auto 0.1 K/mm3 (0.0-0.1); Basophils Percent Auto 0.7 % (0.2-1.2); Eosinophils Absolute Auto 0.2 K/mm3 (0-0.3); Eosinophils Percent Auto 2.6 % (0-4.4); Hematocrit 46.5 % (37.0-47.0); Hemoglobin 14.7 g/dL (12.0-15.0); Immature Granulocyte Percent A 1.3 % (0-0.5); Immature Platelet Fraction Pct 2.4 % (0.9-11.2); Lymphocytes Absolute Auto 2.08 K/mm3 (0.9-3.2); Mean Corpuscular HGB Conc 31.6 g/dl (32-36); Mean Corpuscular Hemoglobin 31.5 pg (26-34); Mean Corpuscular Volume 99.8 fl (80-100); Mean Platelet Volume 9.3 fl (7.4-10.4); Monocytes Absolute Auto 0.8 K/mm3 (0.1-0.6); Monocytes Percent Auto 10.3 % (2.6-8.5); Neutrophils Absolute Auto 4.3 K/mm3 (1.3-6.7); Neutrophils Percent Auto 57.1 % (45.5-73.1); Platelet Count Result 151 k/mm3 (150-375); Red Blood Count 4.66 M/mm3 (4.2-5.4); Red Cell Distribution Width 15.7 % (11.5-14.5); White Blood Count 7.4 K/mm3 (4.5-10.0)
[2024-07-28 11:22] LABS: Anion Gap 7 mmol/L (4-12); Blood Urea Nitrogen 16 mg/dL (7-17); Calcium 9.6 mg/dL (8.4-10.2); Carbon Dioxide 29 mmol/L (22-30); Chloride 103 mmol/L (98-107); Estimated Glomerular Filt Rate 60; Glucose 103 mg/dL (65-110); Sodium 139 mmol/L (137-145)
[2024-07-28 11:44] LABS: INR 1.1; Prothrombin Time 14.5 Seconds (11.1-14.7)
[2024-07-28 11:45] LABS: Partial Thromboplastin Time 26.1 Seconds (22.3-36.8)
[2024-07-28 12:24] LABS: MRSA (PCR) NOT DETECTED (NOT DETECTE)
== END 2024-07-28 09:40 | disposition home or self-care (01) ==
LOC: ANHSURGERY 09:51
PROVIDERS: Anesthesiology; PCP Internal Medicine; Visit Provider Orthopaedic Surgery
DX: M19.011 Primary osteoarthritis, right shoulder (principal); E11.9 Type 2 diabetes mellitus without complications; N28.9 Disorder of kidney and ureter, unspecified; Z01.818 Encounter for other preprocedural examination
CPT/HCPCS: 36415; 80048; 85025; 85055; 85610; 85730; 87641

== ENCOUNTER 2024-12-13 10:07 | Outpatient (CLI) | payer MEDICARE, SELFPAY ==
--- OUTSIDE RECORDS SUMMARY | 2006-08-29 03:15 | XMS_ITS | Continuity of Care Document ---
Author Organization [facility] Address [address] [place] [address] [address] [place] [address] Phone Care Team Providers Care Chair Inspector Name Role Phone Jurgen Diallo Unavailable Unavailable Procedures Procedure Date Post-op Follow-up Visit Post-op Follow-up Visit Remove Cataract, Insert Lens Eye Exam, New Patient Echo Exam Of Eye Advance Directives Directive Yes / No Effective Date File Name No Information Encounters Encounter Description Practice Location Reason(s) For Visit Diagnoses Date Provider Providers Copied on Encounter [facility], [address] [place] [address] [address], [place], [place], [id number], tel:[phone] SEC [facility] No Information 0[address] Yoel Seaman. [address] [place] [address] , [address], [place], [place], [facility], . tel:[phone] Referring Provider: Fernie Byers, [address] [place] [address], [facility]. tel:[phone] [facility], [address] [place] [address] [address], [place], [place], [id number], tel:[phone] [facility] No Information [address] Seaman. [address] [place] [address] , [address], [place], [place], [facility], [place]. tel:[phone] Referring Provider: Fernie Byers, [address] [place] [address], [facility]. tel:[phone] [facility], [address] [facility] [address], [place], [place], [id number], tel:[phone] [facility] No Information [facility] Edward. [address] [facility] , [address], [place], [place], [facility], . tel:[phone] Referring Provider: Fernie Byers, [address] [place] [address], [facility]. tel:[phone] [facility], [address], [place], [place], [id number], tel:[phone] [facility] No Information [facility] Ed[place]. [facility] [facility] , [address], [place], [place], [facility], . tel:[phone] Referring Provider: Fernie Byers, [address] [place] [address], [facility]. tel:[phone] Family History Family Member Type Diagnosis Age At Onset No Information Payers Payer name Insurance type Covered republican ID Authoriza tion(s) No Information Social History [...]
[2024-12-13 11:11] LABS: Hematocrit 43.9 % (37.0-47.0); Hemoglobin 13.5 g/dL (12.0-15.0); Immature Granulocyte Percent A 0.5 % (0-0.5); Lymphocytes Absolute Auto 1.23 K/mm3 (0.9-3.2); Mean Corpuscular HGB Conc 30.8 g/dl (32-36); Mean Corpuscular Hemoglobin 29.9 pg (26-34); Mean Corpuscular Volume 97.1 fl (80-100); Nucleated Red Blood Cells Absolute Auto 0.000 K/mm3 (0.0-0.012); Nucleated Red Blood Cells Perc 0.0 % (0.0-0.2); Platelet Count Result 131 k/mm3 (150-375); Red Blood Count 4.52 M/mm3 (4.2-5.4); White Blood Count 4.1 K/mm3 (4.5-10.0)
[2024-12-13 11:22] LABS: INR 1.1; Prothrombin Time 14.1 Seconds (11.1-14.7)
[2024-12-13 11:23] LABS: Partial Thromboplastin Time 28.8 Seconds (22.3-36.8)
[2024-12-13 11:30] LABS: Anion Gap 8 mmol/L (4-12); Blood Urea Nitrogen 23 mg/dL (7-17); Calcium 9.4 mg/dL (8.4-10.2); Carbon Dioxide 24 mmol/L (22-30); Chloride 105 mmol/L (98-107); Estimated Glomerular Filt Rate > 60; Glucose 150 mg/dL (65-110); Potassium 4.1 mmol/L (3.4-5.0); Sodium 137 mmol/L (137-145)
--- OUTSIDE RECORDS SUMMARY | 2024-12-13 11:38 | XMS_ITS | Clinical Summary ---
Author Organization [facility] Address [address] [place] [address] Care Team Providers Care Wallpaper Inspector And Shipper Name Role Phone Soy Joyce MD Primary [...] Encounters Date Type Department Care Team Description 10/26/2024 External Device Data STL ABSTRACTION Provider, Abstract [...] Body Mass Index 37.08 03/13/2021 10:16 AM WHITE WASHER PILER Plan of Treatment Upcoming Encounters Date Type Department Care Team (Late st Contact Info) Description 01/25/2025 11:30 AM WHITE WASHER PILER Office Visit [facility] Oncology and H[facility]ology - [place] [address] [facility] [address] [place] [address] Danny Heart MD [address] [place] [address] Health Maintenance Due Date Last Done Comments DIABETES ANNUAL FOOT EXAM 1961 DIABETES ANNUAL RETINAL EXAM 1961 RSV VACCINE (60+ or ) (1 - 1-dose 75+ series) 2018 DIABETES MICROALBUMIN ANNUAL SCREEN 02/23/2021 02/24/2020 LDL CHOLESTEROL ANNUAL 06/21/2021 05/12/202 1, 02/24/2020, 02/08/2020 INFLUENZA VACCINE (#1) 2024 4, 12/02/2022, 11/21/2021, Additional history exists DIABETES HBA1C Q 6 MONTHS 09/21/20242024, 06/21/2020, 02/28/2020, Additional history exists COVID-19 Vaccine (2023-2 5 season) 2024 10/20/2023, 04/22/2023, 07/31/2021, Additional history exists OSTEOPOROSIS SCREENING 04/23/2027 04/22/2022 [...] Comments HEMOGLOBIN A1C Routine 03/24/2024 3:34 PM WHITE WASHER PILER LIPID PANEL Routine 06/21/2020 MICROALBUMIN, RANDOM URINE Routine 02/24/2020 from Last 3 Months or Most Recently Relevant to Health Maintenance Results * HEMOGLOBIN A1C (03/24/2024 3:34 PM WHITE WASHER PILER) Blood us Danny Heart MD CHEMISTRY ORDERABLES Final Resu lt * LIPID PANEL (06/21/2020) Blood us Abstract Provider CHEMISTRY ORDERABLES Final Res ult * MICROALBUMIN, RANDOM URINE (02/24/2020) Urine URINE SPECIMEN OBTAINED BY CLEAN CATCH PROCEDURE / Unknown us Abstract Provider URINE ORDERABLES Final Result from Last 3 Months or Most Recently Relevant to Health Maintenance Insurance AETNA PPO MCR Care Teams Wallpaper Inspector And Shipper Relationship Specialty Start Date End Date Soy Joyce MD PCP - General Internal Medicine 12/23/17
--- OUTSIDE RECORDS SUMMARY | 2024-12-13 11:38 | XMS_ITS | Clinical Summary ---
Author Organization [facility] Facility Address [address] [address] Care Team Providers Care Gravel Screener Name Role Phone Soy Joyce MD Primary Care Provider [phone] Medications olmesartan (BENICAR) 5 MG tablet TAKE 1 TABLET(5 MG) BY MOUTH 1 TIME EACH DAY 90 tablet 1 06/18/2024 Active Social History Tobacco Use Types Packs/Day Years Used Date Smoking Tobacco: Never Assessed Comments Unknown Sex and Gender Information Value Date Recorded Sex Assigned at Not on file Legal Sex Female 11:16 AM EDT Gender Identity Not on file Sexual Orientation Not on file Last Filed Vital Signs Vital Sign Reading Time Taken Comments Blood Pressure 110/60 03/02/2024 3:49 PM HAM DOCTOR Pulse 68 03/02/2024 3:49 PM HAM DOCTOR Temperature 36.7 C (98 F) 03/02/2024 3:49 PM HAM DOCTOR Respiratory Rate 18 03/02/2024 3:49 PM HAM DOCTOR Oxygen Saturation 97% 03/02/2024 3:49 PM HAM DOCTOR Inhaled Oxygen Concentration - - Weight 99.3 kg (219 lb) 03/02/2024 3:49 PM HAM DOCTOR Height - - Body Mass Index - - Plan of Treatment Health Maintenance Due Date Last Done Comments Hepatitis B Vaccine (1 of 3 - Risk 3-dose series) 2003 Diabetes: Hemoglobin A1C 10/28/2023 Diabetes: Ophthalmology Exam 10/28/2023 Diabetes: Pedal Pulse Checked 10/28/2023 Diabetes: Sensory Foot Exam 10/28/2023 Diabetes: Visual Foot Exam 10/28/2023 Influenza Vaccine (#1) 2024 4, 12/06/2019, 12/11/2018, Additional history exists Pneumococcal Vaccine: 50+ Years Completed 9, 03/17/2017 Insurance Aetna MCR Adv PPO ([id number]) Advance Directives Documents on File Type Date Recorded Patient Nurse Chemical Dependency Expl anation Advance Care Planning 01/02/2024 12:13 PM Care Teams Gravel Screener Relationship Specialty Start Date End Date Soy Joyce MD [address] [place] [address] PCP - General Internal Medicine 09/25/23
--- OUTSIDE RECORDS SUMMARY | 2024-12-13 11:38 | XMS_ITS | Patient Health Record ---
Author Organization [facility] Address [address] [facility] [address] [place] [address] Reason For Referral No Information Medications Medication SIG (Take, Route, Frequency, Duration) Notes Start Date End Date Status Vitamin D (Ergocalciferol) 1.25 MG (13438 UT) TAKE 1 CAPSULE BY MOUTH EVERY OTHER WEEK; Duration: 30 Active Problems Problem Type SNOMED Code ICD Code Onset Dates Problem Status W/U Status Risk Notes Problem Hyperglycemia due to type 2 diabetes mellitus (286749933282431) Type 2 diabetes mellitus with hyperglycemia (E11.65) Active confirmed Problem Essential hypertension (59925984) Essential (primary) hypertension (I10) Active confirmed Problem Chronic kidney disease stage 2 (234948211) Chronic kidney disease, stage 2 (mild) (N18.2) Active confirmed Problem Proteinuria (31764815) Proteinuria, unspecified (R80.9) Active confirmed Plan Of Treatment No Information
--- OUTSIDE RECORDS SUMMARY | 2024-12-13 11:38 | XMS_ITS | Clinical Summary ---
Author Organization [facility] [employer] Address [address] [place] [address] Care Team Providers Care Sap Hana Developer Name Role Phone Soy Joyce MD Primary Care Provider Source Comments [facility] [employer],non-owned Affiliates and Associated Physician Practices is amultiple site organization consisting of ambulatory clinics and hospital sitesin [place], [place], [place] and [place]. This disclosure is being madepursuant to the Care Everywhere program and may not contain all information available regarding this patient. Last updated 17.[facility] [employer] Allergies No known active allergies Medications * Be aware that medications may not be up to date on this document. Alwaysverify current medications with the patient. levothyroxine (SYNTHROID) 150 MCG tablet Take 100 mcg by mouth daily before breakfast 06/13/19 21 Active venlafaxine XR 24hr (EFFEXOR XR) 75 MG capsule Take 1 (one) capsule by mouth daily with breakfast Active rosuvastatin (Crestor) 20 MG tablet Take 1 (one) tablet by mouth once daily 03/31/19 22 Active Multiple Vitamins-Parker als (WOMENS MULTI VITAMIN & MINERAL PO) Take 1 tablet by mouth once daily Active olmesartan (Benicar) 5 MG tablet Take 1 (one) tablet by mouth once daily 12/30/19 24 Active metoprolol succinate XL 24hr (Toprol XL) 25 MG tablet Take 1 (one) tablet by mouth once daily 12/04/19 25 Active montelukast (Singulair) 10 MG tablet Take 1 (one) tablet by mouth once daily Active diclofenac sodium EC (Voltaren) 75 MG tablet Take 1 (one) tablet by mouth 2 times daily Discontin ued(Tx Complete) Ozempic, 1 MG/DOSE, 4 MG/3ML pen Inject 1 (one) mg subcutaneously every 7 days 11/24/19 24 025 Discontin ued(Tx Complete) levothyroxine (Synthroid) 100 MCG tablet Take 1 (one) tablet by mouth once daily Discontin ued(Dose Adjustmen t) CRANBERRY PO Take 500 mg by mouth once daily Discontin ued(Tx Complete) Active Problems Problem Noted Date Diagnosed Date [...] Encounters Date Type Department Care Team Description 12/10/2024 10:00 AM CDT Office Visit [facility] - [facility] [place] [address] Jake Roberts MD Swanson, Stephanie N, TILE MECHANIC HELPER-PICKUP DRIVER 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); Thrombocytopenia, unspecified; Metabolic syndrome 12/10/2024 Travel from Last 3 Months Social History [...] Sign Reading Time Taken Comments Blood Pressure 117/58 12/10/2024 10:13 AM CDT Pulse 85 12/10/2024 10:13 AM CDT Temperature 37.2 C (99 F) 12/10/2024 10:13 AM CDT Respiratory Rate 18 02/13/2023 10:13 AM TREATER HELPER Oxygen Saturation 96% 12/10/2024 10:13 AM CDT Inhaled Oxygen Concentration - - Weight 96.2 kg (212 lb) 12/10/2024 10:13 AM CDT Height 165.1 cm (5' 5) 12/10/2024 10:13 AM CDT Body Mass Index 35.28 12/10/2024 10:13 AM CDT Plan of Treatment Upcoming Encounters Date Type Department Care Team (Late st Contact Info) Description 07/15/2025 9:00 AM CDT Appointment [facility] [address] [place] [phone] Anastasia Gandhi, TILE MECHANIC HELPER-PICKUP DRIVER [address] [facility] [address] [place] [address] 07/15/2025 10:00 AM CDT Office Visit [facility] - [facility] [address] [facility] [place] [phone] Anastasia Gandhi, TILE MECHANIC HELPER-PICKUP DRIVER [address] [facility] [address] [place] [address] Health Maintenance Due Date Last Done Comments [...] 05/10/2021 DIABETES-HGB A1C 05/29/2023 11/27/2022, , 02/20/2021 DEPRESSION SCREENING 02/11/2024 DIABETES - URINE PROTEIN SCREENING 02/11/2024 11/27/2022, 03/05/2022 MEDICARE AWV CALENDAR YEAR 2024 COVID-19 VACCINE ( season) 2024 07/31/2021, 03/14/2021, 04/30/2020, Additional history exists INFLUENZA VACCINE (#1) 2024 , 12/06/2019, 12/11/2018, [...] Patient-Stated? 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) Liver lesion MICROALB/CREAT RATIO URINE (EXTERNAL RESULT ENTRY) Routine 11/27/2022 9:45 AM CDT HEMOGLOBIN A1C (EXTERNAL RESULT ENTRY) Routine 11/27/2022 9:45 AM CDT from Last 3 Months or Most Recently Relevant to Health Maintenance Results * (ABNORMAL) COMPREHENSIVE METABOLIC PANEL (03/04/2024 12:25 PM TREATER HELPER) BUN 16 7 - 26 mg/dL 03/04/2024 12:59 PM [facility] Creatinine 0.92 0.56 - 0.96 mg/dL 03/04/2024 12:59 PM [facility] Sodium 141 136 - 145 mmol/L 03/04/2024 12:59 PM [facility] Potassium 4.6(H) 3.5 - 4.5 mmol/L 03/04/2024 12:59 PM [facility] Chloride 106 98 - 107 mmol/L 03/04/2024 12:59 PM [facility] CO2 26 22 - 29 mmol/L 03/04/2024 12:59 PM [facility] Glucose 110(H) 70 - 99 mg/dL 03/04/2024 12:59 PM [facility] Calcium 9.7 8.4 - 10.2 mg/dL 03/04/2024 12:59 PM [facility] Protein Total 7.5 6.0 - 8.3 g/dL 03/04/2024 12:59 PM [facility] Albumin 4.0 3.4 - 5.0 g/dL 03/04/2024 12:59 PM [facility] Bilirubin Total 0.6 0.2 - 1.2 mg/dL 03/04/2024 12:59 PM [facility] Alkaline Phosphatase 51 40 - 150 U/L 03/04/2024 12:59 PM [facility] ALT 26 5 - 55 U/L 03/04/2024 12:59 PM [facility] AST 30 5 - 34 U/L 03/04/2024 12:59 PM [facility] Anion Gap 9 6 - 16 03/04/2024 12:59 PM [facility] BUN/Creatinine Ratio 17 7 - 23 03/04/2024 12:59 PM [facility] Osmolality Calculated 294 275 - 295 mOsm/kg 03/04/2024 12:59 PM [facility] Albumin/Globulin Ratio 1.1 1.1 - 2.3 03/04/2024 12:59 PM [facility] eGFR by CKD-EPI 63(L) >=90 mL/min/1.7 3 m2 03/04/2024 12:59 PM [facility] Blood BLOOD SPECIMEN / Unknown Lab Venipuncture / Unknown 03/04/2024 12:25 PM TREATER HELPER 03/04/2024 12:32 PM [facility] Anastasia Gandhi TILE MECHANIC HELPER-PICKUP DRIVER LAB - CHEMISTRY ORD ERABLES Final Result [facility] [address] [place] [address], [facility] [phone] * MICROALB/CREAT RATIO URINE (EXTERNAL RESULT ENTRY) [...] Most Recently Relevant to Health Maintenance Insurance AET AETNA MEDICARE ADV Care Teams Sap Hana Developer Relationship Specialty Start Date End Date Soy Joyce MD [address] [facility] [address] [place] [address] PCP - General 02/04/21
[2024-12-13 12:24] LABS: MRSA (PCR) NOT DETECTED (NOT DETECTE)
== END 2024-12-13 10:08 | disposition home or self-care (01) ==
PROVIDERS: Anesthesiology; PCP Internal Medicine; Visit Provider Orthopaedic Surgery
DX: M19.011 Primary osteoarthritis, right shoulder (principal); N28.9 Disorder of kidney and ureter, unspecified; Z01.818 Encounter for other preprocedural examination
CPT/HCPCS: 36415; 80048; 85025; 85610; 85730; 86850; 86900; 86901; 87641

== ENCOUNTER 2024-12-16 01:34 | Day surgery (SDC) | payer MEDICARE, SELFPAY ==
--- OUTSIDE RECORDS SUMMARY | 2006-08-29 03:15 | XMS_ITS | Continuity of Care Document ---
Author Organization [facility] Address [address] [place] [address] [address] [place] [address] Phone Care Team Providers Care Electronic Specialist Name Role Phone Jurgen Diallo Unavailable Unavailable Procedures Procedure Date Post-op Follow-up Visit Post-op Follow-up Visit Remove Cataract, Insert Lens Eye Exam, New Patient Echo Exam Of Eye Advance Directives Directive Yes / No Effective Date File Name No Information Encounters Encounter Description Practice Location Reason(s) For Visit Diagnoses Date Provider Providers Copied on Encounter [facility], [address] [place] [address] [address], [place], [place], [id number], tel:[phone] [facility] No Information [address] Seaman. [address] [place] [address] , [address], [place], [place], [facility], . tel:[phone] Referring Provider: Fernie Byers, [address] [place] [address], [facility]. tel:[phone] [facility], [address] [place] [address] [address], [place], [place], [id number], tel:[phone] [facility] No Information [address] Seaman. [address] [place] [address] , [address], [place], [place], [facility], [place]. tel:[phone] Referring Provider: Fernie Byers, [address] [place] [address], [facility]. tel:[phone] [facility], [address], [place], [place], [id number], tel:[phone] [facility] No Information [facility] Edward. [address] [facility] , [address], [place], [place], [facility], . tel:[phone] Referring Provider: Fernie Byers, [address] [place] [address], [facility]. tel:[phone] [facility], [address], [place], [place], [id number], tel:[phone] [facility] No Information [facility] [place]. [facility] [facility] , [address], [place], [place], [facility], . tel:[phone] Referring Provider: Fernie Byers, [address] [place] [address], [facility]. tel:[phone] Family History Family Member Type Diagnosis Age At Onset No Information Payers Payer name Insurance type Covered democrat ID Authoriza tion(s) No Information Social History Type Description Quantity Date Captured Comments Sex Female Smoking Status No Information Chief Complaint And Reason For Visit No Information Reason For Referral Reason For Referral No Information History Of Present Illness Encounter Date Complaint History Of Prese nt Illness No Information Functional Status Date Functional Assessmen t No Information Instructions Date Instruction Additional Infor mation No Information Assessments Type Assessment Date No Information Patient Care Teams Name Effective Dates (start - stop) Status Members No Information
[2024-07-28 10:10] VITALS: BP 117/63; PULSE 89; RESP 16; TEMP 36.8; O2SAT 95; BMI 38.2
--- NOTE | 2024-07-28 10:32 | PC.NURSE ---
Report to the Outpatient Waiting Room, entrance under the green pavilion located off [facility], at time ___6:00AM___ on date __08/26/24 . Planned Procedure Time: ___7:30AM .? Time changes happen often and if your time is changed the preop area will call you the afternoon before. - You and your visitor will be asked to self-screen and do not enter if you have any COVID symptoms. Please call surgeon if you need to reschedule. - A mask is optional within the hospital at this time. Patients may have clear liquids (water, carbonated beverages, clear teas, apple juice) until 3 hours prior to surgery (4:30AM) with a maximum of 20 ounces. - No food from midnight until time of surgery and no smoking, or chewing tobacco (or any form of nicotine). No chewing gum, candy or mints. Take only the following medications with a SIP of water on the morning of surgery: LEVOTHYROXINE, VENLAFAXINE. TAKE PREDNISONE IF NOT HELD BY DR KAUR___ DO NOT STOP ANY OF YOUR OTHER PRESCRIPTION MEDICATIONS PRIOR TO SURGERY EXCEPT THE FOLLOWING Hold all vitamins and supplements for 3 days per anesthesiologist.-LAST DOSE 08/22/24. Medications to discontinue per physician __HOLD NSAIDS(DICLOFENAC) 7 DAYS PRE-OP PER DR KAUR Date to take last dose 08/18/24 . PATIENT CALLING OFFICE TO CONFIRM IF NEEDED TO HOLD PREDNISONE. Please no make-up, nail chinese, hairspray, perfume, deodorant, or body powder the day of surgery.? No jewelry (including any body piercings) or valuables the day of surgery, leave them at home.? Please take a shower or bath the night before, or the morning of, surgery with an antibacterial soap.? Wear comfortable, loose fitting clothing.? - Jewelry must be removed prior to entering the operating room.? Rings and piercings that are not removed may be cut off. - The hospital will not accept responsibility for valuables.? - Please leave all valuables, including medications, at home the day of surgery. If you are going home after surgery, a licensed electric train driver must drive you home.? - NO public transportation without another adult if you receive anesthesia. - We recommend that an adult stay with you for 24 hours following discharge. - We also recommend that you do not drive, make important decision, drink alcoholic beverages, or take any drugs that were not prescribed by your health care provider for at least 24 hours after your discharge time. Follow any additional instructions given to you from your surgeon. Telephone instructions given to ____PATIENT and asked if any additional questions and then verbalized understanding. Patient advised to call surgeon office or pre surgery nurse liaison [phone] if any additional questions.
--- OUTSIDE RECORDS SUMMARY | 2024-08-26 02:38 | XMS_ITS | Continuity of Care Document ---
Author Organization [facility] Address [address] [place] [address] [address] [place] [address] Phone Care Team Providers Care Bull Riveter Name Role Phone Jurgen Diallo Unavailable Unavailable Procedures Procedure Date Post-op Follow-up Visit Post-op Follow-up Visit Remove Cataract, Insert Lens Eye Exam, New Patient Echo Exam Of Eye Advance Directives Directive Yes / No Effective Date File Name No Information Encounters Encounter Description Practice Location Reason(s) For Visit Diagnoses Date Provider Providers Copied on Encounter [facility], [address] [place] [address] [address], [place], [place], [id number], tel:[phone] [facility] No Information [address]aman. [address] [place] [address] , [address], [place], [place], [facility], . tel:[phone] Referring Provider: Fernie Byers, [address] [place] [address], [facility]. tel:[phone] [facility], [address] [place] [address] [address], [place], [place], [id number], tel:[phone] [facility] No Information [address] Yoel Seaman. [address] [place] [address] , [address], [place], [place], [facility], [place]. tel:[phone] Referring Provider: Fernie Byers, [address] [place] [address], [facility]. tel:[phone] [facility], [address] [facility] [address], [place], [place], [id number], tel:[phone] [facility] No Information [facility]. [address] [facility] , [address], [place], [place], [facility], . tel:[phone] Referring Provider: Fernie Byers, [address] [place] [address], [facility]. tel:[phone] [facility], [address], [place], [place], [id number], tel:[phone] [facility] No Information [facility] [place]. [facility] [facility] , [address], [place], [place], [facility], . tel:[phone] Referring Provider: Fernie Byers, [address] [place] [address], [facility]. tel:[phone] Family History Family Member Type Diagnosis Age [...]
--- OUTSIDE RECORDS SUMMARY | 2024-08-26 02:38 | XMS_ITS | Clinical Summary ---
Author Organization [facility] Address [address] [place] [address] Care Team Providers Care Program Aide Name Role Phone Soy Joyce MD Primary [...] Encounters Date Type Department Care Team Description 08/24/2024 External Device Data STL ABSTRACTION Provider, Abstract 08/10/2024 Abstract [facility] Oncology and Hematology [facility] [address] [place] [address] Danny Heart MD 07/27/2024 External Device Data STL ABSTRACTION Provider, [...] Body Mass Index 37.08 03/13/2021 10:16 AM VICE PRESIDENT PAYER Plan of Treatment Upcoming Encounters Date Type Department Care Team (Late st Contact Info) Description 01/25/2025 11:30 AM VICE PRESIDENT PAYER Office Visit [facility] Oncology and Hematology - Richard [address] [place] [address] Danny Heart MD [address] [facility] [address] [place] [address] Health Maintenance Due Date Last Done Comments DIABETES ANNUAL FOOT EXAM 1961 DIABETES ANNUAL RETINAL EXAM 1961 RSV VACCINE (60+ or ) (1 - 1-dose 75+ series) 2018 DIABETES MICROALBUMIN ANNUAL SCREEN 02/23/2021 02/24/2020 LDL CHOLESTEROL ANNUAL 06/21/2021 1, 02/24/2020, 02/08/2020 COVID-19 Vaccine (2023-2 5 season) 2024 10/20/2023, 04/22/2023, 07/31/2021, Additional history exists INFLUENZA VACCINE (#1) 2024 4, 12/02/2022, 11/21/2021, Additional history exists DIABETES HBA1C Q 6 MONTHS 09/21/20242024, 06/21/2020, 02/28/2020, Additional history exists OSTEOPOROSIS SCREENING 04/23/2027 04/22/2022 DTAP/TDAP/TD VACCINES (2 - T d or Tdap) 12/05/2029 12/06/2019 COLORECTAL SCREENING Discontinued 08/04/2019 Colorectal Cancer Screening Discontinued PNEUMOCOCCAL VACCINE 50+ YEARS Completed 1 04/01/2022, 05/19/2018, 03/17/2017 ZOSTER VACCINE Completed 10/20/2023, 04/22/2023 FIT-DNA Q 3 years Discontinued FIT/FOBT Q 1 year Discontinued Flex Sig/CT Colonography Q 5 years Discontinued Procedures Procedure Name Priority Date/Time Associated Diagnosis Comments HEMOGLOBIN A1C Routine 03/24/2024 3:34 PM VICE PRESIDENT PAYER LIPID PANEL Routine 06/21/2020 MICROALBUMIN, RANDOM URINE Routine 02/24/2020 from Last 3 Months or Most Recently Relevant to Health Maintenance Results * HEMOGLOBIN A1C (03/24/2024 3:34 PM VICE PRESIDENT PAYER) Blood us Danny Heart MD CHEMISTRY ORDERABLES Final Resu lt * LIPID PANEL (06/21/2020) Blood us Abstract Provider CHEMISTRY ORDERABLES Final Res ult * MICROALBUMIN, RANDOM URINE (02/24/2020) Urine URINE SPECIMEN OBTAINED BY CLEAN CATCH PROCEDURE / Unknown us Abstract Provider URINE ORDERABLES Final Result from Last 3 Months or Most Recently Relevant to Health Maintenance Insurance [employer] PPO MCR Care Teams Program Aide Relationship Specialty Start Date End Date Soy Joyce MD PCP - General Internal Medicine 12/23/17
--- OUTSIDE RECORDS SUMMARY | 2024-08-26 02:38 | XMS_ITS | Clinical Summary ---
Author Organization [facility] Address [address] [place] [address] Care Team Providers Care Package Maker Name Role Phone Soy Joyce MD Primary Care Provider [phone] Medications olmesartan (BENICAR) 5 MG tablet TAKE 1 TABLET(5 MG) BY MOUTH 1 TIME EACH DAY 90 tablet 1 06/18/2024 Active Encounters Date Type Department Care Team Description 06/18/2024 Refill [facility] [address] [facility] [address] [place] [address] Antwan Arora DO from Last 3 Months [...] Comments Blood Pressure 110/60 03/02/2024 3:49 PM MEDICAL AFFAIRS LEADER Pulse 68 03/02/2024 3:49 PM MEDICAL AFFAIRS LEADER Temperature 36.7 C (98 F) 03/02/2024 3:49 PM MEDICAL AFFAIRS LEADER Respiratory Rate 18 03/02/2024 3:49 PM MEDICAL AFFAIRS LEADER Oxygen Saturation 97% 03/02/2024 3:49 PM MEDICAL AFFAIRS LEADER Inhaled Oxygen Concentration - - Weight 99.3 kg (219 lb) 03/02/2024 3:49 PM MEDICAL AFFAIRS LEADER Height - - Body Mass Index - - Plan of Treatment Upcoming Encounters Date Type Department Care Team (Late st Contact Info) Description 08/31/2024 12:30 PM CDT Office Visit [facility] [address] [facility] [address] [place] [address] Antwan Arora DO [address] [facility] [address] [place] [address] Health Maintenance Due Date Last Done Comments Hepatitis B Vaccine (1 of 3 - Risk 3-dose series) 2003 Diabetes: Hemoglobin A1C 10/28/2023 Diabetes: Ophthalmology Exam 10/28/2023 Diabetes: Pedal Pulse Checked 10/28/2023 Diabetes: Sensory Foot Exam 10/28/2023 Diabetes: Visual Foot Exam 10/28/2023 Influenza Vaccine (#1) 2024 , 12/06/2019, 12/11/2018, Additional history exists Pneumococcal Vaccine: 50+ Years Completed 9, 03/17/2017 Insurance [employer] MCR Adv PPO ([id number]) Advance Directives Documents on File Type Date Recorded Patient Chainstitch Binder Expl anation Advance Care Planning 01/02/2024 12:13 PM Care Teams Package Maker Relationship Specialty Start Date End Date Soy Joyce MD [address] [facility], [address] [place] [address] PCP - General Internal Medicine 09/25/23
--- OUTSIDE RECORDS SUMMARY | 2024-08-26 02:39 | XMS_ITS | Patient Health Record ---
Author Organization [facility] Address [address] [facility] [address] [place] [address] Reason For Referral No Information Medications Medication SIG (Take, Route, Frequency, Duration) Notes Start Date End Date Status Vitamin D (Ergocalciferol) 1.25 MG (63630 UT) TAKE 1 CAPSULE BY MOUTH EVERY OTHER WEEK; Duration: 30 Active Problems Problem Type SNOMED Code ICD Code Onset Dates Problem Status W/U Status Risk Notes Problem Hyperglycemia due to type 2 diabetes mellitus (682149513656449) Type 2 diabetes mellitus with hyperglycemia (E11.65) Active confirmed Problem Essential hypertension (94237898) Essential (primary) hypertension (I10) Active confirmed Problem Chronic kidney disease stage 2 (161739452) Chronic kidney disease, stage 2 (mild) (N18.2) Active confirmed Problem Proteinuria (92940129) Proteinuria, unspecified (R80.9) Active confirmed Plan Of Treatment No Information
--- OUTSIDE RECORDS SUMMARY | 2024-08-26 02:39 | XMS_ITS | Data Portability ---
Author Organization [facility], Main Office Address [address] [place] [address] Care Team Providers Care Financial Analysis Advisor Name Role Phone ADITYA JOYCE Primary Care Provider [phone] ADITYA JOYCE Referring Provider [phone] FRAN WARNER Metallurgical Analyst [employer] Electric Relay Tester ANASTASIA GANDHI Batch Dumper Assessment Encounter Date Assessment Date Assessment LastModified by Organization Details LastModified Time 12/29/2023 12/29/2023 07/26/2022: TSH 0.055L, FT4 2.10 [...] her referrals [email or web address] Not available 03/31/2024 14:44:19 08/02/2024 08/02/2024 07/26/2022: TSH 0.055L, FT4 2.10 11/27/2022: A1C [...] micro alb 33.7 Gluc 128 MCV 100.2 07/28/2024: Dr Leyva 45 minutes spent with the patient, labs reviewed, chart updated, discussed her referrals bridgette Not available 07/29/2024 11:14:09 08/10/2024 08/10/2024 Small hemorrhoid appreciated on exam today. Patient is travelling to [place] next week and is feeling much better at this time. She does not wish to undergo any surgical intervention. Recommended high fiber diet, stool softener/miralax PRN, hydration, and steroid suppositories PRN for conservative management of symptoms. Patient agreeable. RTC PRN. [email or web address] Not available 08/10/2024 18:12:46 Plan of Treatment Reminders Order Date Submit Date Provider Last Modified By Organization Details Last Modified Time Details Appointments Follow Up 15 2024 09:45A Rk rueda MD Not available Not available Not available Lab lipid panel, serum 2024 025 [facility] (Lab), [address] [place] [address] [address], [place], [address], 08/02/2024 16:48:00 CMP, serum or plasma 2024 025 [facility] (Lab), [address] [place] [address] [address], [place], [address], 08/02/2024 16:48:00 CBC w/ auto diff 2024 025 [facility] (Lab), [address] [place] [address] [address], [place], [address], 08/02/2024 16:48:00 TSH + free T4, serum 2024 025 [facility] (Lab), [address] [place] [address] [address], [place], [address], 08/02/2024 16:48:00 vitami n D3, 25-hyd earnest, serum 2024 025 [facility] (Lab), [address] [place] [address] [address], [address], 08/02/2024 16:48:00 microa lbumin , urine 2024 025 [facility] (Lab), [address] [place] [address] [address], [place], [address], 08/02/2024 16:48:00 glycoh emoglo bin, total, blood 2024 025 [facility] (Lab), [address] [place] [address] [address], [place], [address], 08/02/2024 16:48:00 lipid panel, serum [address] (Lab), [facility] [address], [place], [address], 03/31/2024 16:09:44 CMP, serum or plasma 2024 025 [facility] (Lab), [address] [place] [address] [address], [place], [address], 04/27/2024 16:18:35 CBC w/ auto diff 2024 025 [facility] (Lab), [address] [place] [address] [address], [place], [address], 04/27/2024 16:18:35 TSH + free T4, serum [address] (Lab), [address] [place] [address] [address], [place], [address], 03/31/2024 16:09:44 vitami n D3, 25-hyd earnest, serum [address] (Lab), [address] [place] [address] [address], [place], [address], 03/31/2024 16:09:44 microa lbumin , urine [address] (Lab), [address] [place] [address] [address], [place], [address], 03/31/2024 16:09:43 glycoh emoglo bin, total, blood [address] (Lab), [facility] [address], [place], [address], 03/31/2024 16:09:43 lipid panel, serum 2023 024 [email or web address] Not available 06/29/2024 08:26:13 CMP, serum or plasma 2023 024 ROMEO Not available 03/24/2024 13:23:16 CBC w/ auto diff 2023 024 [email or web address] Not available 06/29/2024 08:26:13 TSH + free T4, serum 2023 024 [email or web address] Not available 06/29/2024 08:26:13 vitami n D3, 25-hyd earnest, serum 2023 024 [email or web address] Not available 06/29/2024 08:26:14 microa lbumin , urine 2023 024 ROMEO Not available 03/27/2024 12:21:26 glycoh emoglo bin, total, blood 2023 024 [email or web address] Not available 06/29/2024 08:26:13 Referral gastro entero logist referr al - Please call patisami t to schedu le an appoin tment. Thank you. 2024 025 DYANA Gandhi APRN, [address] [facility] [place], [address], 08/10/2024 10:53:39 orthop edic surgeo n referr al - Please call patisami t to schedu le an appoin tment. Thank you. 2024 025 DYANA Leyva MD, [address] [facility] [address], [address], [place], [address], 08/02/2024 14:55:23 pulmon ologis t referr al - Please call patien t to schedu le an appoin tment. Thank you. 2024 025 [email or web address] Fran Warner MD, [address] [place], [address], 08/10/2024 10:19:17 hemato logist referr al - Please call patisami t to schedu le an appoin tment. Thank you. 2024 025 DYANA Heart MD, [address], [place], [address], 08/10/2024 10:55:37 gastro entero logist referr al - Please call roberto t to schedu le an appoin tment. Thank you. 2024 025 [email or web address] Kylah Thompson MD, [address], [address], [place], [address], 08/11/2024 09:00:27 podiat rist referr al - Please call roberto ordonez to esthelau le an appoin tment. Thank you. 2024 025 Tol[facility] Inocencio Angeles Jr DPM, [address], [address], [place], [address], 08/02/2024 17:29:12 wound care referr al - Pt needs appt STEPHENIE due to open wound on rt flank per the provid er - [facility]green 2024 025 ATHENAFAX [facility], [address], [place], [address], 08/02/2024 14:50:39 gastro entero logist referr al 2024 025 [email or web address] Anastasia Gandhi INSPECTOR WREATH, [address] [facility] Level, [place], [address], 03/31/2024 15:29:31 orthop edic surgeo n referr al 2024 025 [email or web address] Rich Leyva MD, [address], [place], [address], 03/31/2024 15:30:20 pulmon ologis t referr al 2024 025 Fran Warner MD, [address], [place], [address], 03/31/2024 15:29:28 hemato logist referr al 2024 025 [email or web address] Pablo Heart MD, [address], [place], [address], 03/31/2024 15:29:29 gastro entero logist referr al 2024 025 Kylah Thompson MD, [address] [facility], [address], [place], [address], 03/31/2024 15:29:32 podiat rist referr al 2024 025 [email or web address] Inocencio Angeles Jr DPM, [address], [address], [place], [address], 03/31/2024 15:30:19 pulmon ologis t referr al 2023 024 Fran Warner MD, [address] [facility], [place], [address], 12/31/2023 14:37:10 nephro logist referr al 2023 024 Gael Banks MD (Nephrology, [address], [address], [place], [address], 12/31/2023 14:40:00 hemato logist referr al 2023 024 [email or web address] Pablo Heart MD, [address], [place], [address], 12/31/2023 14:38:19 gastro entero logist referr al 2023 024 [email or web address] Anastasia Gandhi INSPECTOR WREATH, [address] [facility] Level, [place], [address], 12/31/2023 14:38:20 orthop edic surgeo n referr al 2023 024 Kobe Pelaez PA, [address], [place], [address], 12/31/2023 14:40:00 gastro entero logist referr al 2023 024 [email or web address] Sharonda Collazo MD, [address] [facility], [address], [place], [address], 12/31/2023 14:39:59 podiat rist referr al 2023 024 Inocencio Angeles Jr DPM, [address], [address], [place], [address], 12/31/2023 14:39:58 Procedures None record ed. Surgeries None record ed. Imaging DEXA, axial skelet on - Please call roberto ordonez to esthela urbano. 2024 025 [facility]), [address] [facility], [place], [address], 04/07/2024 10:02:38 DEXA, axial skelet on 2023 024 [email or web address] Not available 12/30/2023 16:59:39 Medication Orders venlaf axine ER 75 mg capsul e,exte nded releas e 24 hr 2024 025 [id number], [address] , [place], [place], [id number], 03/31/2024 14:48:57 venlaf axine ER 75 mg capsul e,exte nded releas e 24 hr 2023 024 [id number], [address], [place], [place], [id number], 12/29/2023 12:15:54 Patient TargetsNo targets recorded. Patient InstructionsNo instructions recorded. Reason for Referral Information Coordinator Referral for Type 2 diabetes mellitus without complication Referring Physician: Aditya Joyce Internal Medicine, Encounter Date: 12/29/2023 Metallurgical Analyst Referral for O bstructive sleep apnea syndrome Referring Physician: Aditya Joyce Internal Medicine, Encounter Date: 12/29/2023 Referring Physician: Aditya Joyce Internal Medicine, Encounter Date: 12/29/2023 Batch Dumper Referral for Screening for malignant neoplasm of colon Referring Physician: Aditya Joyce Internal Medicine, Encounter Date: 12/29/2023 Orthopedic Surgeon Referral for Osteoarthritis of bilateral hip joints Referring Physician: Aditya Joyce Internal Medicine, Encounter Date: 12/29/2023 Batch Dumper Referral for Cirrhosis of liver Referring Physician: Aditya Joyce Internal Medicine, Encounter Date: 12/29/2023 Healthcare Administration Intern 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 Referring Physician: Aditya Joyce Internal Medicine, Encounter Date: 12/29/2023 Information Coordinator Referral for Type 2 diabetes mellitus without complication Referring Physician: Aditya Joyce Internal Medicine, Encounter Date: 03/31/2024 Metallurgical Analyst Referral for O bstructive sleep apnea syndrome Referring Physician: Aditya Joyce Internal Medicine, Encounter Date: 03/31/2024 Referring Physician: Aditya Joyce Internal Medicine, Encounter Date: 03/31/2024 Orthopedic Surgeon Referral for Osteoarthritis of bilateral hip joints Referring Physician: Kyaw Mccann, Encounter Date: 03/31/2024 Batch Dumper Referral for Cirrhosis of liver Referring Physician: Kyaw Mccann Medicine, Encounter Date: 03/31/2024 Batch Dumper Referral for Screening for malignant neoplasm of colon Referring Physician: Aditya Joyce Internal Medicine, Encounter Date: 03/31/2024 Information Coordinator Referral for Type 2 diabetes mellitus without complication Please call patient to schedule an appointment. Thank you. Referring Physician: Aditya Joyce Internal Medicine, Encounter Date: 08/02/2024 Metallurgical Analyst Referral for O bstructive sleep apnea syndrome Please call patient to schedule an appointment. Thank you. Referring Physician: Aditya Joyce Internal Medicine, Encounter Date: 08/02/2024 Please call patient to sched ule an appointment. Thank you. Referring Physician: Aditya Joyce Internal Medicine, Encounter Date: 08/02/2024 Orthopedic Surgeon Referral for Osteoarthritis of bilateral hip joints Please call patient to schedule an appointment. Thank you. Referring Physician: Kyaw Mccann Medicine, Encounter Date: 08/02/2024 Batch Dumper Referral for Cirrhosis of liver Please call patient to schedule an appointment. Thank you. Referring Physician: Aditya Joyce Internal Medicine, Encounter Date: 08/02/2024 Batch Dumper Referral for Screening for malignant neoplasm of colon Please call patient to schedule an appointment. Thank you. Referring Physician: Kayw Mccann Medicine, Encounter Date: 08/02/2024 Pt needs appt STEPHENIE due to op en wound on rt flank per the provider - [facility]green Referring Physician: Kyaw Mccann Medicine, Encounter Date: 08/02/2024 Results Created Date Observation Date Name Description Value Unit Range Abnormal Flag Note LastModifiedBy Organization Detail LastModifiedTime 02/02/20 24 02/02/2024 US, abdom en No observ ation record ed. [email or web address] [facility] [address] [place], [address], 02/05/2024 09:38:20 03/10/19 25 03/10/2024 imagi ng/di agnos tic resul t No observ ation record ed. ROMEO [facility] [address], [place], [address], 03/10/2024 19:02:45 04/20/19 25 04/12/2024 imagi ng/di agnos tic resul t No observ ation record ed. [facility] [address] [facility] [address], [place], [address], 04/19/2024 19:45:25 04/20/19 25 04/16/2024 imagi ng/di agnos tic resul t No observ ation record ed. [facility] [address] [facility], [place], [address], 04/19/2024 19:48:00 05/14/19 25 05/13/2024 DEXA, axial skele ton [facility] [address] [place] [id number] Patien t Name: MERCEDES QUIROZ Access ion #: [id number] Sex: F : 1944 5 Dictat ed By: Sadiq hoskins Attend ing Physic gerber: HOME CALDERA Physic gerber: HOME CALDERA Exam Date: 2024 [...] hips and femora l necks. Page 1 [facility] [address] [facility] [address] [facility], [place] [address] Patien t Name: MERCEDES QUIROZ Access ion #: [id number] Sex: F : 1944 5 Dictat [...] ent. T-scor e: compar ugo by suman villanueva ion (SD) to a young adult popula tion, [...] at 2024 10:50: 19 AM Page 2 [email or web address] [facility] (Imaging) [address] [facility], [place], [address], 07/27/2024 14:58:44 05/14/19 25 05/13/2024 scree marisela breas t yessica, bilat [facility] [address] [place] [address] Patisami t Name: MERCEDES QUIROZ ion #: [id number] Sex: F : 1944 5 Dictat [...] Recomm end annual mammog james. Page 1 [facility] [address] [place] [address] [phone] Roberto ordonez Name: MERCEDES QUIROZ ion #: [id number] Sex: F : 1944 5 Dictat ed By: Latasha Dawn Attend ing Physic gerber: AKILA MEADOWS Physic gerber: HOME CALDERA Exam Date: 2024 09:46 AM Exam Name: MG SCRJannie BREAST YESSICA BILAT Admitt ing Diagno sis(es ): ASSESS MENT: BIRADS : 1 - Negati ve Electr onical ly Signed by: Latasha Dawn at 2024 10:54: 47 AM Page [address] (Imaging) [address] [place], [address], 07/27/2024 14:58:46 05/14/19 25 05/13/2024 DEXA, axial skele ton No observ ation record ed. [email or web address] [place], [address], 07/27/2024 14:58:47 05/14/19 25 05/13/2024 MAMMO , scree marisela, digit al, bilat eral No observ ation record ed. [address] [place], [address], 07/27/2024 14:58:47 06/15/19 25 06/14/2024 XR, hip, unila teral , 2 or 3 view No observ ation record ed. [place] [id number] [facility] [address], [place], [address], 08/03/2024 11:48:07 Result Notes Documentation Provider Name and Address Organization Details Recorded Time Dexa, Axial Skeleton : [facility] [address] [place] [address] Patient Name: MERCEDES MORALES Sex: F : 1945 Dictated By: Sadiq Ma Attending Physician: ADITYA JOYCE Ordering Physician: ADITYA JOYCE Exam Date: 05/13/2024 10:10 AM Exam Name: XR DEXA-HIPS PELVIS SPINE Admitting Diagnosis(es): INDICATION: screening 79-year-old female with osteoporosis screening. DEXA SCAN: Technique: DEXA scan of the lumbar spine and bilateral hips was performed. Comparison is made with DEXA scan dated 03/21/2017. BONE DENSITY REPORT: AP SPINE (L1-L4) : T Score: 0.9 LEFT FEMORAL NECK : T Score: -1.6 RT FEMORAL NECK : T Score: -1.5 LEFT HIP TOTAL : T Score: -1.3 RT HIP TOTAL : T Score: -1.1 TOTAL BILAT HIP AVG: T Score: -1.2 10 YEAR FRACTURE RISK* Major osteoporotic fracture 23.7 % Hip fracture 6 % IMPRESSION: 1. Normal bone mineral density of the lumbar spine overall. It should be noted that the BMD at L4 is consistent with osteopenia. 2. Osteopenia of the bilateral hips and femoral necks. Page 1 [facility] [address] [place] [address] Patient Name: MERCEDES MORALES Sex: F : 1945 Dictated By: Sadiq Ma Attending Physician: JESSICA BURGESS Ordering Physician: ADITYA JOYCE Exam Date: 05/13/2024 10:10 AM Exam Name: XR DEXA-HIPS PELVIS SPINE Admitting Diagnosis(es): --- *FRAX version 3.08. Fracture probability calculated for an untreated patient. Fracture probability may be lower if the patient has received treatment. T-score: comparison by standard deviation (SD) to a young adult population, matched for sex and ethnicity (used for postmenopausal women and men >50 years) and classified by WHO criteria. -1.0: normal <-1.0 to >-2.5: osteopenia -2.5: osteoporosis -2.5 plus fragility fracture: severe osteoporosis Z-score: compared by SD to an age, sex, and ethnicity population (used for premenopausal women, men <50 years, and children instead of T-score WHO criteria 4) <-2.0: below expected range/low bone density for age, and a cause should be sought Page 2 RAMÓN Hsieh, [facility] 07/27/2024 14:58:45 Problems Name Problem SNOMED Code Status Onset Date Resolution Date Notes Provider Name and Address Organization Details Recorded Time Gastroesop hageal reflux disease without esophagiti s 360100159 Active 2022 Fran Warner MD [address], [place], [address] , [facility] 5 11:44:32 Moderate recurrent major depression 70804405 Active 2022 Fran Warner MD [address], [place], [address] , [employer] 5 11:44:23 Environmen shayy allergy 453857956 Active 2022 Fran Warner MD [address], [place], [address] , [employer] [facility] 5 11:44:33 Osteoarthr 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 7675145303078 00 Active 2022 Fran Warner MD [address], [place], [address] , [facility] 5 11:44:17 COVID-19 962269702 Active 2022 [facility] 3 14:26:23 Chronic kidney disease 541027014 Active 2022 Fran Warner MD [address], [place], [address] , [facility] 5 11:44:41 Restless legs 52062821 Active 2023 Fran Warner MD [address], [address], [place], [address] , [facility] 5 11:44:13 Osteoarthr itis of bilateral hip joints 8498846506762 05 Active 2023 Fran Warner MD [address], [place], [address] , [facility] 5 11:44:19 Deep venous thrombosis 039497999 Active Fran Warner MD [address], [address], [place], [address] , [facility] 5 11:44:38 Body mass index 30+ - obesity 896717733 Active 2018 Fran Warner MD [address], [address], [place], [address] , [facility] 5 11:44:50 Cataract 459261910 Active Fran Warner MD [address], [address], [place], [address] , [facility] 5 11:44:44 Cirrhosis of liver 55082920 Active 2018 Fran Warner MD [address], [address], [place], [address] , [employer] 5 11:44:39 Localized, primary osteoarthr itis of the hand 729881384 Active Fran Warner MD [address], [address], [place], [address] , [employer] [facility] [employer] 5 11:44:26 Osteoarthr itis of knee 527557787 Active Fran Warner MD [address], [address], [place], [address] , [employer] 5 11:44:15 Cervical spondylosi s without myelopathy 514443010 Active Fran Warner MD [address], [address], [place], [address] , [employer] [facility] 5 11:44:43 Vitamin D deficiency 76586418 Active 2021 Fran Warner MD [address], [address], [place], [address] , [employer] [facility] 5 11:44:02 Hypothyroi dism 83698419 Active Fran Warner MD [address], [address], [place], [address] , [employer] 5 11:44:28 Hyperlipid emia 87825857 Active 2021 Fran Warner MD [address], [address], [place], [address] , [employer] [facility] 5 11:44:29 Essential hypertensi on 65761792 Active 2017 Not Available [employer] 3 09:34:23 Rhinitis 84219309 Active Fran Warner MD [address], [address], [place], [address] , [employer] [facility] [employer] [facility] 5 11:44:12 Diabetes mellitus 39859246 Active Fran Warner MD [address], [address], [place], [address] , [employer] [facility] [employer] [facility] 5 11:44:36 Obstructiv e sleep apnea syndrome 39172229 Active 2018 Fran Warner MD [address], [place], [address] , [employer] 5 11:44:22 Type 2 diabetes mellitus without complicati on 888729704 Active 2024 Fran Warner MD [address], [address], [place], [address] , [employer] 5 11:44:04 Bleeding hemorrhoid s 74937647 Active 2024 Jewle loera MD [address], [address], [place], [address] , [employer] 5 12:20:33 Notes:CPAP compliance CPAP set up 05/12/23 Medical History: Anxiety/Depression Cataract COVID infection 10/2022 Rhinitis Bruxism Obesity with very severe OSAHS, 12/28/17, AHI = 73, on CPAP c/o IVRC Hypothyroidism Hyperlipidemia Hypertension T2DM with microalbuminuria JEAN PIERRE Cirrhosis CKD Vit D deficiency Right DVT Cervical spondylosis Bilateral hip OA Procedure History: T&A 1947 Tubal ligation 1978 Left elbow/wrist surgery 1983 [...] CPT Code, subsequent completed Puneet King LPN [facility] 08/12/2023 11:06:57 024 Colonoscopy completed RAMÓN Hsieh [facility] 08/18/2023 10:39:18 023 Ortho - Cortisone Injection completed Dima Ramos MD [address], [place], [address], [facility] 10/01/2022 15:08:00 021 Most Recent Bone Density completed Not Available [employer] 04/10/2022 03:14:36 020 Date of Last Colonoscopy completed Not Available [facility] 04/10/2022 03:14:36 013 Total knee arthroplasty completed Not Available [facility] 04/10/2022 03:14:37 013 Total knee arthroplasty completed Not Available [facility] 04/10/2022 03:14:37 Gastrointestinal Surgery completed Not Available [facility] 04/10/2022 03:14:37 other completed Not Available [facility] 04/10/2022 03:14:37 Gallbladder Surgery completed Not Available [facility] 04/10/2022 03:14:37 Tonsillectomy completed Not Available [facility] 04/10/2022 03:14:37 Knee Surgery completed Not Available [facility] 04/10/2022 03:14:37 Cataract Surgery completed Not Available [facility] 04/10/2022 03:14:37 Hernia Repair completed Not Available [facility] 04/10/2022 03:14:37 [employer] Surgery completed Not Available [facility] 04/10/2022 03:14:37 other completed Not Available [facility] 04/10/2022 03:14:37 Imaging Results None recorded. Procedure Notes None recorded. Medical Equipment None [...] 1 TABLET BY MOUTH TWICE DAILY FOR 10 DAYS 08/02 completed Not Available Not Available Not Available [...] Not Available Not Available No t Available Score [employer] Ultra Test strips USE TO TEST ONCE DAILY AND NEEDED 03/13 completed Not Available Not Available Not Available Kenalog 10 mg/mL suspensio n for injection Take 20 mg by injectio n route. 12/02 completed [facility]: [id number] - Not Available Not Available [...] tablet TAKE 1 TABLET BY MOUTH DAILY active [...] Available chlorhexi dine gluconate 0.12 % mouthwash 08/02 completed Not Available Not Available Not Available magnesium 1 tab daily 10/23 completed Not Available Not Available Not Available Vitamin C 1 daily 05/31 completed Not Available Not Available Not Available calcium 08/03 completed Not Available Not Available Not Available diclofena c sodium 03/31 completed Not Available Not Available Not Available Claritin qd 01/04 completed Not Available Not Available Not Available prednison e 08/02 completed Not Available Not Available Not Available Vitamin D3 08/03 completed Not Available Not Available Not Available Baby Aspirin one tablet daily 07/06 completed Not Available Not Available Not Available lidocaine (PF) 10 mg/mL (1 %) injection solution In office injectio n administ ered by the provider 10/03 completed [facility]: [id number] 07-27 Not Available Not Available Not Available lidocaine [...] Not Available Not Available Not Available Xarelto 10 mg tablet TAKE 1 TABLET BY MOUTH DAILY FOR 30 DAYS AFTER SURGERY. STOP DICLOFEN AC WHILE ON XARELTO active Not Available Not Available No t Available ropivacai ne (PF) 5 mg/mL (0.5 %) injection solution Take 20 mg by injectio n route. 12/02 completed [facility] [id number] 05-11 Not Available Not Available Not Available Xarelto [...] completed Not Available Not Available Not Available Journavx 50 mg tablet TAKE 1 TABLET BY MOUTH TWICE DAILY active Not Available Not Available No t Available Vitals Date Recorded Body height Body mass index (BMI) Body weight Body temperature Heart rate Systolic And Diastolic Provider Name and Address Organization Details Last Updated DateTime 5 165.1 cm 36.6 kg/m2 21182.3 2 g 97.5 [degF] 96 /min 126/70 mm[Hg] RAMÓN Hsieh Ned [place] [employer] [facility] 5 14:37:17 Date Recorded Body height Body mass index (BMI) Body weight Body temperature Heart rate Oxygen saturation Oxygen saturation in Arterial blood by Pulse oximetry Systolic And Diastolic Provider Name and Address Organization Details Last Updated DateTime 5 165.1 cm 36.1 kg/m2 93512.5 4 g 97.8 [degF] 100 /min 99 % 99 % 128/66 mm[Hg] Nisha Fuentes MA [facility] [employer] [facility] 5 16:35:06 Date Recorded Body height Body mass index (BMI) Body weight Body temperature Heart rate Systolic And Diastolic Provider Name and Address Organization Details Last Updated DateTime 5 165.1 cm 33.9 kg/m2 00081.8 4 g 97.4 [degF] 100 /min 118/60 mm[Hg] Kristi Boyddontae [facility] [employer] [facility] 5 10:42:45 Date Recorded Body height Body mass index (BMI) Body weight Body temperature Respiratory rate Heart rate Oxygen saturation Oxygen saturation in Arterial blood by Pulse oximetry Systolic And Diastolic Provider Name and Address Organization Details Last Updated DateTime 5 165.1 cm 33.9 kg/m2 64537.8 4 g 97.8 [degF] 18 /min 88 /min 98 % 98 % 130/80 mm[Hg] Lana Campuzano [facility] [employer] [facility] 5 12:56:07 Date Recorded Body height Body mass index (BMI) Body weight Body temperature Heart rate Systolic And Diastolic Provider Name and Address Organization Details Last Updated DateTime 4 165.1 cm 36.8 kg/m2 951729. 91 g 97.6 [degF] 84 /min 118/66 mm[Hg] Kristi Mundo [facility] [employer] [facility] 4 11:08:27 Social History Question Answer Notes LastModified by Organization Details LastModified Time Tobacco Smoking Status Former Smoker Not Available [facility] 04/10/2022 03:13:55 Do You Have An Advance Directive? Yes Asked To Bring Copy For Chart [id number] Information not available 04/10/2022 Do You Wear A Helmet When Biking? No Does Not Bike MIGRATION.[id number] Information not available 04/10/2022 Are You Blind Or Do You Have Difficulty Seeing? No MIGRATION.[id number] Information not available 04/10/2022 Is Blood Transfusion Acceptable In An Emergency? Yes Information not available 08/18/2023 What Is Your Level Of Caffeine Consumption? Occasional MIGRATION.030 [id number] Information not available 04/10/2022 How Much Tobacco Do You Chew? None MIGRATION.030 233820 Information not available 04/10/2022 In The 14 Days Before Symptom Onset, Have You Had Close Contact With A Laboratory-confi rmed COVID-19 While That Case Was Ill? No MIGRATION.030 [id number] Information not available 04/10/2022 In The 14 Days Before Symptom Onset, Have You Had Close Contact With A Person Who Is Under Investigation For COVID-19 While That Person Was Ill? No MIGRATION.030 [id number] Information not available 04/10/2022 Are You Deaf Or Do You Have Serious Difficulty Hearing? No MIGRATION.030 857069 Information not available 04/10/2022 What Type Of Diet Are You Following? REGULAR MIGRATION.030 171837 Information not available 04/10/2022 Which Illicit Or Recreational Drugs Have You Used? None MIGRATION.030 816357 Information not available 04/10/2022 What Is The Highest Grade Or Level Of School You Have Completed Or The Highest Degree You Have Received? [id number] MIGRATION.030 172339 Information not available 04/10/2022 Do You Have An Electrostatic Air Filter? No Information not available 03/13/2023 How Many Days Of Moderate To Strenuous Exercise, Like A Brisk Walk, Did You Do In The Last 7 Days? 0 [email or web address] Information not available 08/18/2023 Have There Been Any Changes To Your Family Or Social Situation? No [email or web address] Information not available 08/18/2023 What Is The Fluoride Status Of Your Home? Fluoridated MIGRATION.030 596387 Information not available 04/10/2022 When Did You Quit Smoking? 14+yearssincelastci garette MIGRATION.030 713096 Information not available 04/10/2022 Are There Any Guns Present In Your Home? Yes MIGRATION.030 030654 Information not available 04/10/2022 Do You Have A Humidifier? No Information not available 03/13/2023 Do You Use Insect Repellent Routinely? No MIGRATION.0301 [id number] Information not available 04/10/2022 Where Do You Live? SingleLevelHouse MIGRATION.0301 [id number] Information not available 04/10/2022 Presence Of Domestic Violence No Information not available 08/18/2023 Guns Present In The Home? Yes [email or web address] Information not available 08/18/2023 Are You Able To Care For Yourself? Yes [email or web address] Information not available 08/18/2023 Are You Blind Or Do Yo Have Difficulty Seeing? No Information not available 08/18/2023 Are You Deaf Or Do You Have Serious Difficulty Hearing? No [email or web address] Information not available 08/18/2023 General Stress Level? Moderate [email or web address] Information not available 08/18/2023 Live Alone Of With Others? With Others [email or web address] Information not available 08/18/2023 Do You Have A Medical Power Of Surgical Elastic Knitter? Yes MIGRATION.0301 [id number] Information not available 04/10/2022 Do You Have Moisture Problems In Your Home? No Information not available 03/13/2023 What Was The Date Of Your Most Recent Tobacco Screening? 08/02/2024 [email or web address] Information not available 08/02/2024 Do You Have Any Pets? No MIGRATION.0301 [id number] Information not available 04/10/2022 What Is Your Relationship Status? MIGRATION.0301 [id number] Information not available 04/10/2022 Do You Use Your Seat Belt Or Car Seat Routinely? Yes MIGRATION.0301 133783 Information not available 04/10/2022 Do You Have Smoke And Carbon Monoxide Detectors In Your Home? Yes MIGRATION.0301 031344 Information not available 04/10/2022 Are You Passively Exposed To Smoke? No MIGRATION.0301 [id number] Information not available 04/10/2022 Are There Any Smokers In Your House? No MIGRATION.0301 736786 Information not available 04/10/2022 How Much Tobacco Do You Smoke? No MIGRATION.0301 [id number] Information not available 04/10/2022 What Types Of Sporting Activities Do You Participate In? None MIGRATION.0301 386163 Information not available 04/10/2022 Do You Use Sunscreen Routinely? No MIGRATION.0301 979055 Information not available 04/10/2022 Has Tobacco Cessation Counseling Been Provided? No MIGRATION.0301 964113 Information not available 04/10/2022 Have You Recently Traveled Abroad? No MIGRATION.0301 982559 Information not available 04/10/2022 Do You Have Difficulty Walking Or Climbing Stairs? No MIGRATION.0301 209655 Information not available 04/10/2022 Do You Have Any Dietary Restrictions? No MIGRATION.0301 531525 Information not available 04/10/2022 Sex: Female Functional Status Question Answer Note LastModified by Organizat ion Details LastModified Time Do you or have you ever used smokeless tobacco? Never used smokeless tobacco MIGRATION.78282 06841 Information not available 04/10/2022 Are you currently employed? No Information not available 03/13/2023 Have you been exposed to chemicals or toxins? Not that aware of Information not available 03/13/2023 Do you have transportation difficulties? No MIGRATION.34862 72890 Information not available 04/10/2022 Are you able to care for yourself? Yes MIGRATION.42757 26963 Information not available 04/10/2022 Do you have difficulty dressing or bathing? No MIGRATION.39559 29616 Information not available 04/10/2022 Do you or have you ever used e-cigarettes or vape? Never used electronic cigarettes MIGRATION.94461 50777 Information not available 04/10/2022 What is your exercise level? None MIGRATION.92284 04148 Information not available 04/10/2022 Do you use any illicit or recreational drugs? No MIGRATION.05200 54764 Information not available 04/10/2022 Do you or have you ever used any other forms of tobacco or nicotine? No MIGRATION.27608 13646 Information not available 04/10/2022 What is your level of alcohol consumption? None MIGRATION.61208 06335 Information not available 04/10/2022 Are you able to walk? YESWOREST MIGRATION.32179 37165 Information not available 04/10/2022 Do you have difficulty doing errands alone? No MIGRATION.42672 05070 Information not available 04/10/2022 What is your occupation? retired MIGRATION.41466 48188 Information not available 04/10/2022 Mental Status Question Answer Note LastModified by Organizat ion Details LastModified Time Do you feel stressed (tense, restless, nervous, or anxious, or unable to sleep at night)? [id number] Information not available 08/18/2023 Do you have difficulty concentrating, remembering or making decisions? No MIGRATION.[id number] 26 Information not available 04/10/2022 Family History Relationship Description Onset Age of this Age Resolved Age Notes LastModified by Organization Details LastModified Time Father Diabetes mellitus MIGRATION.921 [id number] Not available 04/10/2022 03:14:45 Father Family history [...] Gynecological History Statement/Question Response Menses Monthly N How many live births 3 Abnormal Pap N Date of Last Mammogram 02/14/2020 Date of Last Colonoscopy 08/04/2019 Most Recent Bone Density 02/14/2020 Sexually Active? N Obstetrics History GPAL:G 5 P 3 0 2 3 Type Value Multiple Births 0 Full Term 3 Induced 0 Spontaneous 2 Premature 0 Living 3 Ectopics 0 Total 5 Immunizations Vaccine Type Date Status Note Provider Nam e and Address Organization Details Recorded Time Influenza, high-dose, quadrivalent, PF 0 completed Kristi Flower RMA null, [facility] 08/13/2023 11:55:32 COVID-19, mRNA, LNP-S, PF, 30 mcg/0.3 mL dose 2 completed Kristi Flower RMA null, [facility] 08/13/2023 11:55:32 COVID-19, mRNA, LNP-S, PF, 30 mcg/0.3 mL dose 1 completed Kristi Flower RMA null, [facility] 08/13/2023 11:55:32 COVID-19, mRNA, LNP-S, PF, 30 mcg/0.3 mL dose 1 completed Kristi Flower RMA null, [facility] 08/13/2023 11:55:32 COVID-19, mRNA, LNP-S, PF, 30 mcg/0.3 mL dose, mj-sucrose 2 completed Kristi Flower RMZeeshan null, [facility] 08/13/2023 11:55:32 Influenza, high-dose, trivalent, PF 5 completed Kristi Flower RMA null, [facility] 08/13/2023 11:55:32 Influenza, high-dose, trivalent, PF 7 completed Kristi Flower RMA null, [facility] 08/13/2023 11:55:32 Influenza, high-dose, trivalent, PF 6 completed Kristi Flower RMA null, [facility] 08/13/2023 11:55:33 Influenza, adjuvanted, trivalent, PF 4 completed Kristi Flower RMA null, [facility] 08/02/2024 10:37:38 zoster recombinant 4 completed Kristi Flower RMA null, [facility] 08/02/2024 10:37:38 zoster recombinant 4 completed [facility] 10:37:38 Pneumococcal conjugate PCV20, polysaccharide [id number] conjugate, adjuvant, PF 3 completed [facility] 08/02/2024 10:37:38 RSV, recombinant, protein subunit RSVpreF, adjuvant reconstituted, 0.5 mL, PF 3 completed Kristi Flower RMA david, [facility] 08/02/2024 10:37:38 COVID-19, mRNA, LNP-S, PF, 50 mcg/0.5 mL 4 completed Kristi Flower RMA null, [facility] 08/02/2024 10:37:38 COVID-19, mRNA, LNP-S, PF, 50 mcg/0.5 mL 4 completed Kristi Flower RMA null, [facility] 08/02/2024 10:37:38 SARS-COV-2 (COVID-19) vaccine, UNSPECIFIED 1 completed Kristi Flower RMA null, [facility] 08/13/2023 11:55:32 SARS-COV-2 (COVID-19) vaccine, UNSPECIFIED 1 completed Kristi Flower, RMA null, [facility] 08/13/2023 11:55:32 Influenza, high-dose, trivalent, PF 9 completed Kristi Flower, RMA null, [facility] 08/13/2023 11:55:33 Influenza, high-dose, trivalent, PF 7 completed Kristi Boydham, RMA null, [facility] 08/13/2023 11:55:32 Influenza, high-dose, trivalent, PF 6 completed Kristi Flower, RMA null, [facility] 08/13/2023 11:55:33 Influenza, high-dose, trivalent, PF 5 completed Kristi Flower, RMA null, [facility] 08/13/2023 11:55:32 Tdap 0 completed Kristi Flower, RMA null, [facility] 08/13/2023 11:55:32 Influenza, high-dose, trivalent, PF 0 completed Kristi Boydham, RMA null, [facility] 08/13/2023 11:55:33 Influenza, high-dose, trivalent, PF 4 completed Kristi Flower, RMA null, [facility] 08/13/2023 11:55:32 Influenza, high-dose, trivalent, PF 3 completed Kristi Flower, RMA null, [facility] 08/13/2023 11:55:32 Influenza, high-dose, quadrivalent, PF 2 completed Not Available [facility] 07/29/2022 09:34:24 Influenza, high-dose, quadrivalent, PF 1 completed Not Available [facility] 07/29/2022 09:34:24 pneumococcal polysaccharide PPV23 9 completed Not Available [employer] 07/29/2022 09:34:24 Influenza, high-dose, trivalent, PF 8 completed Not Available [facility] 07/29/2022 09:34:24 Pneumococcal conjugate PCV 13 8 completed Not Available [facility] 07/29/2022 09:34:24 Influenza, high-dose, quadrivalent, PF 3 completed Aditya Joyce MD [address] [place] [address], [facility] [address], [place], [address], [facility] [employer] [facility] 12/02/2022 17:56:33 Past Encounters Encounter ID Performer Location Encounter Start Date Encounter Closed Date Diagnosis/Indication Diagnosis SNOMED-CT Code Diagnosis ICD10 Code Diagnosis Note [id number] Aditya lancaster MD [facility] [place] [address] [place] [address] y , [place] [address] 06/19/2020 00:00:00 06/19/2020 14:22:26 [id number] Aditya lancaster MD [facility] Internal [place] [address] [place] [address] y , [place] [address] 06/21/2020 00:00:00 06/21/2020 13:25:17 [id number] S_Histor ic_Gateway [facility] [address] [place] [address] 08/01/2020 00:00:00 08/01/2020 12:57:26 [id number] Dima Ramos MD [facility] Ortho [place] [address] [place] [address] 08/29/2020 00:00:00 08/29/2020 16:03:30 [id number] Aditya lancaster MD [facility] Internal [place] [address] [place] [address] [place] [address] 10/23/2020 00:00:00 10/23/2020 14:29:56 [id number] S_Histor ic_Gateway [facility] Podiatry [place] [address] [place] [address] 11/02/2020 00:00:00 11/02/2020 17:24:59 [id number] Aditya lancaster MD [facility] Internal Med [place] [address] , [place] [address] 04/02/2021 00:00:00 04/02/2021 11:59:31 [id number] Dima Ramos MD [facility] [place] [address] [place] [address] 05/22/2021 00:00:00 05/22/2021 15:53:36 [id number] Dima Ramos MD [facility] [place] [address] [place] [address] 06/19/2021 00:00:00 06/19/2021 15:10:11 [id number] Aditya lancaster MD [facility] Internal [place] [address] [facility] y , [place] [address] 07/25/2021 00:00:00 07/25/2021 16:57:22 [id number] [facility], [facility] Pulmon[facility] gy [place] [address] [place] [address] 08/21/2021 00:00:00 08/21/2021 14:35:56 [id number] Dima Ramos MD [facility] Orth[facility] [place] [address] [place] [address] 09/17/2021 00:00:00 09/17/2021 10:29:45 [id number] S_Histor ic_Gateway [facility] Podiatry [place] [address] [place] [address] 11/01/2021 00:00:00 11/04/2021 16:36:10 [id number] Aditya lancaster MD [facility] Internal [place] [address] [place] [address] [place] [address] 11/26/2021 00:00:00 11/26/2021 12:56:05 [id number] Aditya lancaster MD [facility] Internal [facility] [place] [address] [place] [address] [place] [address] 12/05/2021 00:00:00 12/05/2021 12:08:16 [id number] Aditya lancaster MD [facility] Internal [facility] [place] [address] [place] [address] y , [place] [address] 03/27/2022 00:00:00 03/27/2022 17:14:53 [id number] Aditya lancaster MD [facility] Internal [facility] [place] [address] [place] [address] [place] [address] 07/29/2022 11:49:50 07/29/2022 12:58:47 Type 2 diabetes mellitus without complication 145467834 E11.9 On metformin ER 500mg bidOn ozempic, does well denies any MCT, MEN2 or pancreatic issuesGet labs Does well Needs to see her eye MD Does see Dr Long on 11/02/2020 Screening - NAD 56666327 3 Z13.9 C-scope: 02/22/2014 : Dr Da [...] his understand ing of the above Hyperlipidemia 19375276 E78.5 On rosuvastat in 20mg daily Get labs Hypothyroidism 37948340 E03.9 On levothyrox ine 200mcgs dailyDoes wellRepeat the labs Restless legs 42984766 G 25.81 Not on requip now On tizanidine 4mg dailyDoes well Gastroesop hageal reflux disease without esophagitis 413621391 K21.9 S/p EGDOn nexium, take as needed only Does well Sinus tachycardia 555210 01 R00.0 s/p Stress test 08/24/2020 : NegS/p ECHO 08/24/2020 On metoprolol ER 25mg dailyOn lisinopril 10mg dailyDoes well Sees [facility] Dr Auguste last OV 09/19/2021 Thrombocyt openic disorder 182213999 D69.[address] Heart Last OV 03/13/2021 , f/u yearly Obstructiv e sleep apnea syndrome 59521875 G47.33 S/p sleep study 12/28/17Is using the CPAP and is very compliant 04/13/2019 : CT Chest: Deysi Butler, no acute intrathora cic process, thyrodi calcificat ions, F/u USOld granulomat os disease Keep apt with [facility] NP 08/21/2021 Environmental allergy 42 9877929 T78.49XD On proairOn singulair Does well Forgetful 65707354 R41.3 Get labsS/p MRI brain 06/26/2020 May need to see neurology Pain of bi lateral knee joints 5107816698 09580 M25.561 M25.562 S/p jeff TKRsDr Richard 09/17/2021 Cirrhosis of liver 90577 007 K74.60 US Liver 06/26/2020 US liver 07/26/2021 : Nodular margins, cirrhosisG et an apt with GI hepatology Dr Roberts also, has seen Anastasia Francisco in 01/2021 liver 03/13/2022 , see case Moderate r ecurrent major depression 03310862 F33.1 On venlafaxin e ER 75mgs dailyDoes wellNot suicidal or homicidalD eclines any referral to psychiatry Can renew when needed Essential hypertension 97449324 I10 On lisinopril 5mg will cut this in half 07/29/2022 , as she feels the BP is low, bring BP logs in 2 weeksOn metoprolol ER 25mg daily, may need to adjust this [id number] [employer] [facility], [facility] Pul[facility] [place] [address] [place] [address] 09/11/2022 12:18:43 09/11/2022 14:57:32 Obstructive sleep apnea syndrome 79887542 G47.33 Split night study 12/28/17 with AHI [...] at least 4 hours prior to bedtime. [id number] Dima Ramos MD [facility] [place] [address] [place] [address] 09/17/2022 14:48:10 09/17/2022 15:42:57 Pain of bilateral knee joints 8576449750 76615 M25.561 M25.562 History of bilateral total knee replacement 7455781315 718206 Z96.653 [id number] Dima Ramos MD [facility] Orth[facility] [place] [address] [place] [address] 10/01/2022 14:48:35 10/01/2022 15:20:37 Pain of right shoulder joint 0674568924 4096084 M25.511 Osteoarthr 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 6303035490 79319 M19.605 [id number] Jewel loera MD [facility] General Surgery [address] [place] [address] 11/05/2022 10:25:40 11/05/2022 11:59:15 Lymphadenopathy 76483194 R59.1 [id number] Aditya lancaster MD [facility] Internal Med [place] [address] [facility] y , [place] [address] 12/02/2022 11:55:51 12/02/2022 12:52:29 Screening - NAD 153298749 Z13.9 C-scope: 02/22/2014 : Dr Da Silva [...] Type 2 ofe betes mellitus without complication 712918062 E11.9 On metformin ER 500mg bidOn ozempic, does well denies any MCT, MEN2 or pancreatic issuesGet labs Does well Needs to see her eye MD Does see Dr Long on 11/02/2020 Hyperlipidemia 84241835 E78.5 On rosuvastat in 20mg daily Get labs Hypothyroidism 31032550 E03.9 On levothyrox ine 200mcgs daily,will decrease to 150mcgs dailyDoes wellRepeat the labs Restless legs 20449090 G 25.81 Not on requip now On tizanidine 4mg dailyDoes well Gastroesop hageal reflux disease without esophagitis 312376612 K21.9 S/p EGDOn nexium, take as needed only Does well Sinus tachycardia 315768 01 R00.0 s/p Stress test 08/24/2020 : NegS/p ECHO 08/24/2020 On metoprolol ER 25mg dailyOn lisinopril 5mg dailyDoes well Sees [facility] Dr Auguste last OV 09/19/2021 Thrombocyt openic disorder 566188205 D69.[address] Heart Last OV 03/13/2021 , f/u yearlyLast OV 03/19/2022 , f/u yearly Obstructiv e sleep apnea syndrome 12329287 G47.33 S/p sleep study 12/28/17Is using the CPAP and is very compliant 04/13/2019 : CT Chest: Deysi Butler, no acute intrathora cic process, thyrodi calcificat ions, F/u USOld granulomat os disease Keep apt with 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 08/21/2021 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 , next 04/22/2023 Environmental allergy 42 6729307 T78.49XD On proairOn singulair Does well Forgetful 62644186 R41.3 Get labs S/p MRI brain 06/26/2020 May need to see neurology Pain of bi lateral knee joints 6514016263 33561 M25.561 M25.562 S/p jeff TKRs Dr Ramos 09/17/2021 Cirrhosis of liver 58294 007 K74.60 US Liver 06/26/2020 US liver 07/26/2021 : Nodular margins, cirrhosisG et an apt with GI hepatology Dr Roberts also, has seen Anastasia Francisco in 01/2021 liver 03/13/2022 , see case Moderate r ecurrent major depression 88686160 F33.1 On venlafaxin e ER 75mgs dailyDoes wellNot suicidal or homicidalD eclines any referral to psychiatry Can renew when needed Essential hypertension 28378515 I10 On lisinopril 5mgOn metoprolol ER 25mg daily, may need to adjust this COVID-19 392504094 U07.1 +ve 10/29/2022 , see case 10/29/2022 Pain of ri ght shoulder joint 3829845317 8558230 M25.511 Dr Ramos 10/01/2022 , s/p kenalog Chronic ki dney disease 592975600 N18.[address] Banks IJ Chronic neck pain 560385 1229 107 M54.2 Get Xray C-spineIf not better, get PT and may need to see [facility] Administra tion of influenza vaccine 19825147 Z23 [id number] Fran Warner MD [facility] Pulmonolo gy [address], [address] [address] 03/13/2023 11:59:32 03/14/2023 15:38:10 Obstructive sleep apnea syndrome 70788111 G47.33 [id number] Aditya lancaster MD [facility] Internal Med [facility] [address] [place] [address] , [place] [address] 03/31/2023 11:47:38 03/31/2023 12:49:59 Screening - NAD [id number] Z13.9 C-scope: 02/22/2014 : Dr Da Silva [...] Type 2 ofe betes mellitus without complication 755058942 E11.9 On metformin ER 500mg bidOn ozempic, does well denies any MCT, MEN2 or pancreatic issuesGet labs Does well Needs to see her eye MD Does see Dr Long on 11/02/2020 Hyperlipidemia 35687020 E78.5 On rosuvastat in 20mg daily Get labs Hypothyroidism 17011890 E03.9 On levothyrox ine 100mcgs dailyDoes wellRepeat the labsGet US thyroid Restless legs 37019850 G 25.81 Not on requip now On tizanidine 4mg dailyDoes well Gastroesop hageal reflux disease without esophagitis 315898834 K21.9 S/p EGDOn nexium, take as needed only Does well Sinus tachycardia 645479 01 R00.0 s/p Stress test 08/24/2020 : NegS/p ECHO 08/24/2020 On metoprolol ER 25mg dailyOn lisinopril 5mg dailyDoes well Sees [facility] Dr Auguste last OV 09/19/2021 Thrombocyt openic disorder 649131680 D69.[address] Heart Last OV 03/13/2021 , f/u yearlyLast OV 03/19/2022 , f/u yearly Obstructiv e sleep apnea syndrome 36237530 G47.33 S/p sleep study 12/28/17Is using the CPAP and is very compliant 04/13/2019 : CT Chest: Deysi Butler, no acute intrathora cic process, thyrodi calcificat ions, F/u USOld granulomat os disease Keep apt with [employer] 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 08/21/2021 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 , next 04/22/2023 Environmental allergy 42 6280636 T78.49XD On proairOn singulair Does well Forgetful 11677101 R41.3 Get labs S/p MRI brain 06/26/2020 May need to see neurology Pain of bi lateral knee joints 7320481157 66325 M25.561 M25.562 S/p jeff TKRs Dr Ramos 09/17/2021 Cirrhosis of liver 05357 007 K74.60 US Liver 06/26/2020 US liver 07/26/2021 : Nodular margins, cirrhosisG et an apt with GI hepatology Dr Roberts also, has seen Anastasia Francisco in 01/2021 Anastasia Maryam [employer] 02/13/2023 , f/u in 6 monthsUS liver 03/13/2022 , see case Moderate r ecurrent major depression 77393175 F33.1 On venlafaxin e ER 75mgs dailyDoes wellNot suicidal or homicidalD eclines any referral to psychiatry Can renew when needed Essential hypertension 57782538 I10 On lisinopril 5mgOn metoprolol ER 25mg daily, may need to adjust this COVID-19 538132650 U07.1 +ve 10/29/2022 , see case 10/29/2022 Pain of ri ght shoulder joint 8845782876 3621411 M25.511 Dr Ramos 10/01/2022 , s/p kenalog Chronic ki dney disease 843411790 N18.[address] Banks IJ Chronic neck pain 958448 5510 107 M54.2 Get Xray C-spineIf not better, get PT and may need to see IPC Xray C-spine 12/02/2022 Screening for malignant neoplasm of colon 615438687 Z12.11 Pruritic rash 04508985 L 28.2 In the groin area, red and itchy, not examined today, no rash at present, would like a refill of nystatin-t riamcinolo ne [id number] Fran Warner MD [facility] [address] 06/12/2023 12:02:56 06/13/2023 09:12:13 Obstructive sleep apnea syndrome 66353311 G47.33 [id number] Aditya lancaster MD [facility] [place] [address] 1 06/25/2023 15:20:32 06/25/2023 16:19:01 Screening - NAD 363560348 Z13.9 C-scope: 02/22/2014 : Dr Da Silva Mammogram: 01/13/17: Neg, 18: Neg 9: Neg 021: Neg 022: Neg [...] Type 2 ofe betes mellitus without complication 077995857 E11.9 On metformin ER 500mg bidOn ozempic, does well denies any MCT, MEN2 or pancreatic issuesGet labs Does well Needs to see her eye MD Does see Dr Long on 11/02/2020 Hyperlipidemia 59389261 E78.5 On rosuvastat in 20mg daily Get labs Hypothyroidism 33412113 E03.9 On levothyrox ine 100mcgs dailyDoes wellRepeat the labsGet US thyroid Restless legs 07531555 G 25.81 Not on requip now On tizanidine 4mg dailyDoes well Gastroesop hageal reflux disease without esophagitis 671261062 K21.9 S/p EGDOn nexium, take as needed only Does well Sinus tachycardia 455499 01 R00.0 s/p Stress test 08/24/2020 : NegS/p ECHO 08/24/2020 On metoprolol ER 25mg dailyOn lisinopril 5mg dailyDoes well Sees [facility] Dr Auguste last OV 09/19/2021 Thrombocyt openic disorder 953700437 D69.[address] Heart Last OV 03/13/2021 , f/u yearlyLast OV 03/19/2022 , f/u yearly Obstructiv e sleep apnea syndrome 61050805 G47.33 S/p sleep study 12/28/17Is using the CPAP and is very compliant 04/13/2019 : CT Chest: Deysi Butler, no acute intrathora cic process, thyrodi calcificat ions, F/u USOld granulomat os disease Keep apt with [employer] 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 08/21/2021 America Neri [employer] 09/11/2022 , next 04/22/2023 Environmental allergy 42 0631026 T78.49XD On proairOn singulair Does well Forgetful 44106023 R41.3 Get labs S/p MRI brain 06/26/2020 May need to see neurology Pain of bi lateral knee joints 2840559104 48996 M25.561 M25.562 S/p jeff TKRs Dr Ramos 09/17/2021 Cirrhosis of liver 36448 007 K74.60 US Liver 06/26/2020 US liver 07/26/2021 : Nodular margins, cirrhosisG et an apt with GI hepatology Dr Roberts also, has seen Anastasia Francisco in 01/2021 Anastasia Francisco [employer] 02/13/2023 , f/u in 6 monthsUS liver 03/13/2022 , see case Moderate r ecurrent major depression 62419043 F33.1 On venlafaxin e ER 75mgs dailyDoes wellNot suicidal or homicidalD eclines any referral to psychiatry Can renew when needed Essential hypertension 13385500 I10 On lisinopril 5mgOn metoprolol ER 25mg daily, may need to adjust this COVID-19 074613166 U07.1 +ve 10/29/2022 , see case 10/29/2022 Pain of ri ght shoulder joint 9359613065 8687007 M25.511 Dr Ramos 10/01/2022 , s/p kenalog Chronic ki dney disease 899985455 N18.[address] Banks IJ Chronic neck pain 707019 4904 107 M54.2 Get Xray C-spineIf not better, get PT and may need to see IPC Xray C-spine 12/02/2022 Screening for malignant neoplasm of colon 428511637 Z12.11 Pruritic rash 46642963 L 28.2 In the groin area, red and itchy, not examined today, no rash at present, would like a refill of nystatin-t riamcinolo ne Low back pain 352392531 M54.50 Xrays noted 06/24/2023 Already on the diclofenac given by Kobe Madrigal on flexerillN eeds another apt with ortho Osteoarthr itis of bilateral hip joints 7506792104 32322 M16.0 Has seen Kobe Madrigal another referral [id number] Aditya lancaster MD [facility] [place] [address] [facility] [place] [address] 08/18/2023 10:28:33 08/18/2023 11:26:37 Adult health examination 797166376 Z00.00 Screening for disorder 200189376 Z13.9 Screening - NAD 37712731 3 Z13.9 C-scope: 02/22/2014 : Dr Da [...] Type 2 ofe betes mellitus without complication 553839628 E11.9 Not taking metformin ER 500mg bidOn ozempic, does well denies any MCT, MEN2 or pancreatic issuesGet labs Does wellNeeds to see her eye MD Does see Dr Long on 11/02/2020 Does not want heraclio Mast ill refer toDr Angeles Hyperlipidemia 60904405 E78.5 On rosuvastat in 20mg dailyGet labs Hypothyroidism 98564703 E03.9 On levothyrox ine 100mcgs dailyDoes wellRepeat the labsGet US thyroid Restless legs 90098863 G 25.81 Not on requip now On tizanidine 4mg dailyDoes well Gastroesop hageal reflux disease without esophagitis 559490070 K21.9 S/p EGDOn nexium, take as needed only Does well Sinus tachycardia 940415 01 R00.0 s/p Stress test 08/24/2020 : NegS/p ECHO 08/24/2020 On metoprolol ER 25mg dailyOn lisinopril 5mg dailyDoes well Sees [facility] Dr Auguste last OV 09/19/2021 Thrombocyt openic disorder 340817179 D69.[address] Heart Last OV 03/13/2021 , f/u yearlyLast OV 03/19/2022 , f/u yearly Obstructiv e sleep apnea syndrome 88066398 G47.33 S/p sleep study 12/28/17Is using the CPAP and is very compliant 04/13/2019 : CT Chest: Deysi Butler, no acute intrathora cic process, thyrodi calcificat ions, F/u USOld granulomat os disease Keep apt with 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 08/21/2021 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 Dr Warner last 06/12/2023 , next 4 Environmental allergy 42 5427700 T78.49XD On proairOn singulair Does well Forgetful 41549922 R41.3 Get labs S/p MRI brain 06/26/2020 May need to see neurology Pain of bi lateral knee joints 9472477458 37940 M25.561 M25.562 S/p jeff TKRs Dr Ramos 09/17/2021 Cirrhosis of liver 29308 007 K74.60 US Liver 06/26/2020 US liver 07/26/2021 : Nodular margins, cirrhosisG et an apt with GI hepatology Dr Roberts also, has seen Anastasia Francisco in 01/2021 Anastasia Gandhi [employer] 02/13/2023 , f/u in 6 monthsUS liver 03/13/2022 , see case Moderate r ecurrent major depression 62009722 F33.1 On venlafaxin e ER 75mgs dailyDoes wellNot suicidal or homicidalD eclines any referral to psychiatry Can renew when needed Essential hypertension 85240785 I10 On lisinopril 5mgOn metoprolol ER 25mg daily, may need to adjust this COVID-19 161709493 U07.1 +ve 10/29/2022 , see case 10/29/2022 Pain of ri ght shoulder joint 6729084050 6541143 M25.511 Dr Ramos 10/01/2022 , s/p kenalog Chronic ki dney disease 622821885 N18.[address] Banks IJ Chronic neck pain 374197 4332 107 M54.2 Get Xray C-spineIf not better, get PT and may need to see IPC Xray C-spine 12/02/2022 Screening for malignant neoplasm of colon 221491491 Z12.11 Pruritic rash 55084212 L 28.2 In the groin area, red and itchy, not examined today, no rash at present, would like a refill of nystatin-t riamcinolo ne Low back pain 117434439 M54.50 Xrays noted 06/24/2023 Already on the diclofenac given by Kobe Madrigal on flexerillN eeds another apt with ortho Osteoarthr itis of bilateral hip joints 2754697670 70421 M16.0 Has seen Kobe Madrigal another referral Screening for osteoporosis 755638775 Z13.820 Vitamin D deficiency 347 95385 E55.9 [id number] Aditya lancaster MD [facility] [place] [address] [facility] , [facility] [place] [address] 11/24/2023 14:36:02 11/24/2023 15:26:53 Screening - NAD 288126562 Z13.9 C-scope: 02/22/2014 : Dr Da SilvaC-sco [...] Type 2 ofe betes mellitus without complication 924991645 E11.9 Not taking metformin ER 500mg bidOn ozempic, does well denies any MCT, MEN2 or pancreatic issues, will increase that ozempic to 1mg weeklyGet labs Does wellNeeds to see her eye MD Does see Dr Long on 11/02/2020 Does not want heraclio Mast ill refer to Dr Angeles Hyperlipidemia 90107040 E78.5 On rosuvastat in 20mg dailyGet labs Hypothyroidism 23660037 E03.9 On levothyrox ine 100mcgs dailyDoes wellRepeat the labsGet US thyroid Restless legs 53525603 G 25.81 Not on requip now On tizanidine 4mg dailyDoes well Gastroesop hageal reflux disease without esophagitis 980990620 K21.9 S/p EGDOn nexium, take as needed only Does well Sinus tachycardia 223831 01 R00.0 s/p Stress test 08/24/2020 : NegS/p ECHO 08/24/2020 On metoprolol ER 25mg dailyOn lisinopril 5mg dailyDoes well Sees [facility] Dr Auguste last OV 09/19/2021 Thrombocyt openic disorder 337181117 D69.[address] Heart Last OV 03/13/2021 , f/u yearlyLast OV 03/19/2022 , f/u yearlyOV 04/23/2023 : F/u yearly Obstructiv e sleep apnea syndrome 30026760 G47.33 S/p sleep study 12/28/17Is using the CPAP and is very compliant 04/13/2019 : CT Chest: Deysi Butler, no acute intrathora cic process, thyrodi calcificat ions, F/u USOld granulomat os disease Keep apt with [employer] 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 08/21/2021 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 Dr Warner last 06/12/2023 , next 12/25/2023 Environmental allergy 42 1551857 T78.49XD On proairOn singulair Does well Forgetful 66838492 R41.3 Get labsS/p MRI brain 06/26/2020 May need to see neurology Pain of bi lateral knee joints 5593486260 66743 M25.561 M25.562 S/p jeff TKRs Dr Ramos 09/17/2021 Cirrhosis of liver 71949 007 K74.60 US Liver 06/26/2020 US liver 07/26/2021 : Nodular margins, cirrhosisG et an apt with GI hepatology Dr Roberts also, has seen Anastasia Francisco in 01/2021 Anastasia Gandhi [employer] 02/13/2023 , f/u in 6 monthsUS liver 03/13/2022 , see case Moderate r ecurrent major depression 32612182 F33.1 On venlafaxin e ER 75mgs dailyDoes wellNot suicidal or homicidalD eclines any referral to psychiatry Can renew when needed Essential hypertension 55212264 I10 On lisinopril 5mgOn metoprolol ER 25mg daily, may need to adjust this COVID-19 840727273 U07.1 +ve 10/29/2022 , see case 10/29/2022 Pain of ri ght shoulder joint 9203400736 9336759 M25.511 Dr Ramos 10/01/2022 , s/p kenalog Chronic ki dney disease 586871906 N18.[address] Banks IJ Chronic neck pain 923596 2926 107 M54.2 Get Xray C-spineIf not better, get PT and may need to see IPC Xray C-spine 12/02/2022 Screening for malignant neoplasm of colon 057009547 Z12.11 Pruritic rash 55454083 L 28.2 In the groin area, red and itchy, not examined today, no rash at present, would like a refill of nystatin-t riamcinolo ne Low back pain 370265640 M54.50 Xrays noted 06/24/2023 Already on the diclofenac given by Kobe Madrigal on flexerillN eeds another apt with ortho Osteoarthr itis of bilateral hip joints 0050061759 44012 M16.0 Has seen Kobe Madrigal another referral Screening for osteoporosis 297622360 Z13.820 Vitamin D deficiency 347 82624 E55.9 [id number] Aditya lancaster MD [facility] [place] [address] [facility] [address] [place] [address] 12/29/2023 10:48:52 12/29/2023 12:31:05 Screening - NAD 545820913 Z13.9 C-scope: 02/22/2014 : Dr Da SilvaC-sco [...] Type 2 ofe betes mellitus without complication 086203883 E11.9 Not taking metformin ER 500mg bidOn ozempic, does well denies any MCT, MEN2 or pancreatic issues, will increase that ozempic to 1mg weeklyGet labs Does wellNeeds to see her eye MD Does see Dr Long on 11/02/2020 Does not want heraclio Mast ill refer to Dr Angeles Hyperlipidemia 05053599 E78.5 On rosuvastat in 20mg dailyGet labs Hypothyroidism 85393431 E03.9 On levothyrox ine 100mcgs dailyDoes wellRepeat the labsGet US thyroid Restless legs 64027983 G 25.81 Not on requip now On tizanidine 4mg dailyDoes well Gastroesop hageal reflux disease without esophagitis 608687327 K21.9 S/p EGDOn nexium, take as needed only Does well Sinus tachycardia 463231 01 R00.0 s/p Stress test 08/24/2020 : NegS/p ECHO 08/24/2020 On metoprolol ER 25mg dailyOn lisinopril 5mg dailyDoes well Sees [facility] Dr Auguste last OV 09/19/2021 Thrombocyt openic disorder 155913526 D69.[address] Heart Last OV 03/13/2021 , f/u yearlyLast OV 03/19/2022 , f/u yearlyOV 04/23/2023 : F/u yearly Obstructiv e sleep apnea syndrome 29901917 G47.33 S/p sleep study 12/28/17Is using the CPAP and is very compliant 04/13/2019 : CT Chest: Deysi Butler, no acute intrathora cic process, thyrodi calcificat ions, F/u USOld granulomat os disease Keep apt with [employer] 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 08/21/2021 America He NP 09/11/2022 Dr Warner last 06/12/2023 , next 12/25/2023 Environmental allergy 42 6606411 T78.49XD On proairOn singulair Does well Forgetful 67191406 R41.3 Get labsS/p MRI brain 06/26/2020 May need to see neurology Pain of bi lateral knee joints 6539700037 64359 M25.561 M25.562 S/p jeff TKRs Dr Ramos 09/17/2021 Cirrhosis of liver 04600 007 K74.60 US Liver 06/26/2020 US liver 07/26/2021 : Nodular margins, cirrhosisG et an apt with GI hepatology Dr Roberts also, has seen Anastasia Francisco in 01/2021 Anastasia Gandhi [employer] 02/13/2023 , f/u in 6 monthsUS liver 03/13/2022 , see case Moderate r ecurrent major depression 57488670 F33.1 On venlafaxin e ER 75mgs dailyDoes wellNot suicidal or homicidalD eclines any referral to psychiatry Can renew when needed Essential hypertension 59071428 I10 On lisinopril 5mgOn metoprolol ER 25mg daily, may need to adjust this COVID-19 365785096 U07.1 +ve 10/29/2022 , see case 10/29/2022 Pain of ri ght shoulder joint 2687277056 5904282 M25.511 Dr Ramos 10/01/2022 , s/p kenalog Chronic ki dney disease 095142047 N18.[address] Banks IJ Chronic neck pain 012623 7932 107 M54.2 Get Xray C-spineIf not better, get PT and may need to see IPC Xray C-spine 12/02/2022 Screening for malignant neoplasm of colon 453202103 Z12.11 Pruritic rash 39314417 L 28.2 In the groin area, red and itchy, not examined today, no rash at present, would like a refill of nystatin-t riamcinolo ne Low back pain 989809481 M54.50 Xrays noted 06/24/2023 Already on the diclofenac given by Kobe Madrigal on flexerillN eeds another apt with ortho Osteoarthr itis of bilateral hip joints 4501220206 06865 M16.0 Has seen Kobe Madrigal another referral Screening for osteoporosis 735656545 Z13.820 Vitamin D deficiency 347 50717 E55.9 Renewal of prescription 546411465 Z76.0 [id number] Aditya lancaster MD [facility] [address] [place] [address] 03/31/2024 14:20:58 03/31/2024 15:22:27 Screening - NAD 316875601 Z13.9 C-scope: 02/22/2014 : Dr Da SilvaC-sco [...] Type 2 ofe betes mellitus without complication 724985168 E11.9 Not taking metformin ER 500mg bidOn ozempic, does well denies any MCT, MEN2 or pancreatic issues, ozempic to 1mg weekly, can increase to 1.7mg weeklyGet labs Does wellNeeds to see her eye MD Does see Dr Long on 11/02/[address] Faustinw ill refer to Dr Angeles Hyperlipidemia 53222603 E78.5 On rosuvastat in 20mg dailyGet labs Hypothyroidism 23435584 E03.9 On levothyrox ine 100mcgs dailyDoes wellRepeat the labsGet US thyroid Restless legs 95236224 G 25.81 Not on requip now On tizanidine 4mg dailyDoes well Gastroesop hageal reflux disease without esophagitis 292886932 K21.9 S/p EGDOn nexium, take as needed only Does well Sinus tachycardia 706311 01 R00.0 s/p Stress test 08/24/2020 : NegS/p ECHO 08/24/2020 Not on metoprolol ER 25mg dailyNot on lisinopril 5mg dailyOn olmesartan 5mg daily Dr Dickson well Sees [facility] Dr Auguste Thrombocyt openic disorder 482718989 D69.[address] Heart Last OV 03/13/2021 , f/u yearlyLast OV 03/19/2022 , f/u yearlyOV 04/23/2023 : F/u yearly Obstructiv e sleep apnea syndrome 47468579 G47.33 S/p sleep study 12/28/17Is using the CPAP and is very compliant 04/13/2019 : CT Chest: Deysi Butler, no acute intrathora cic process, thyrodi calcificat ions, F/u USOld granulomat os disease Keep apt with [employer] 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 08/21/2021 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 Dr Warner Environmental allergy 42 9239475 T78.49XD On proairOn singulair Does well Forgetful 03133293 R41.3 Get labsS/p MRI brain 06/26/2020 May need to see neurology Pain of bi lateral knee joints 6786233173 85273 M25.561 M25.562 S/p jeff TKRs Dr Ramos 09/17/2021 Cirrhosis of liver 60526 007 K74.60 US Liver 06/26/2020 US liver 07/26/2021 : Nodular margins, cirrhosisG et an apt with GI hepatology Dr Roberts also, has seen Anastasia Francisco in 01/2021 Anastasia Gandhi [employer]EL[employer] 02/13/2023 , f/u in 6 monthsUS liver 03/13/2022 , see case Moderate r ecurrent major depression 86142676 F33.1 On venlafaxin e ER 75mgs dailyDoes wellNot suicidal or homicidalD eclines any referral to psychiatry Can renew when needed Essential hypertension 28058061 I10 Off lisinopril 5mgOff metoprolol ER 25mg daily, may need to adjust thisOn olmesartan COVID-19 383821303 U07.1 +ve 10/29/2022 , see case 10/29/2022 Pain of ri ght shoulder joint 5482829506 9249930 M25.511 Dr Ramos 10/01/2022 , s/p kenalog S/p MRI 03/10/2024 Dr Leyva Chronic ki dney disease 680009728 N18.[address] Darren Ying sees Dr Arora Chronic neck pain 037742 6532 107 M54.2 Get Xray C-spineIf not better, get PT and may need to see IPC Xray C-spine 12/02/2022 Screening for malignant neoplasm of colon 532241389 Z12.11 Pruritic rash 91878174 L 28.2 In the groin area, red and itchy, not examined today, no rash at present, would like a refill of nystatin-t riamcinolo ne Low back pain 601372017 M54.50 Xrays noted 06/24/2023 Already on the diclofenac given by Kobe Madrigal on flexerillN eeds another apt with ortho Osteoarthr itis of bilateral hip joints 4033896393 03938 M16.0 Has seen Kobe Madrigal another referral Screening for osteoporosis 918182722 Z13.820 Vitamin D deficiency 347 74896 E55.9 [id number] Aditya lancaster MD [facility] Primary Care [facility] [address] [place] [address] 07/21/2024 16:05:46 07/22/2024 08:32:29 Open wound 690843602 T14.8XXA Get on triple ointment, and keep area clean and dryIs to see wound clinic [id number] Aditya lancaster MD [facility] Primary Care [facility] [address] [place] [address] 08/02/2024 10:24:08 08/02/2024 12:50:37 Screening - NAD 308357039 Z13.9 C-scope: 02/22/2014 : Dr Da SilvaC-sco pe: 07/15/2019 : Dr Da Silva Mammogram: 01/13/17: Neg, 01/14/18: Neg 9: Neg 021: Neg 022: Neg 023: BiRads 3: Neg 024: Neg 025: Neg DEXA: 02/14/2020 : Osteopenia , on OTC ca and vit dDEXA: 04/22/2022 : Osteopenia on OTC ca and vit dDEXA: 05/13/2024 : Osteopenia PAP: Not doing doing these, no problems UTD on flu shotUTD pneumovax #13 03/17/17, #23 05/19/18UT D on shingles vaccine, 4 years agoUTD on tdap 12/06/2019 UTD on COVID 19 vaccineCan do RSV vaccine and new COVID 19 vaccine RTC in 3 monthsDo Lety Powers did verbalize her understand ing of the above 45 minutes spent with the patient from 9.35am till 10.20am, labs reviewed, referrals provided to Dr Leyva and to wound clinic Type 2 ofe betes mellitus without complication 024329503 E11.9 Not taking metformin ER 500mg bidOn ozempic, does well denies any MCT, MEN2 or pancreatic issues, ozempic to 1mg weekly, can increase to 1.7mg weeklyGet labs Does wellNeeds to see her eye MD Does see Dr Long on 11/02/2020 Does not want heraclio Mast ill refer to Dr Angeles Hyperlipidemia 48070999 E78.5 On rosuvastat in 20mg dailyGet labs Hypothyroidism 45080367 E03.9 On levothyrox ine 100mcgs dailyDoes wellRepeat the labsGet US thyroid Restless legs 71378441 G 25.81 Not on requip now On tizanidine 4mg dailyDoes well Gastroesop hageal reflux disease without esophagitis 854163065 K21.9 S/p EGDOn nexium, take as needed only Does well Sinus tachycardia 685422 01 R00.0 s/p Stress test 08/24/2020 : NegS/p ECHO 08/24/2020 Not on metoprolol ER 25mg dailyNot on lisinopril 5mg dailyOn olmesartan 5mg daily Dr Dickson well Sees [facility] Dr Auguste Thrombocyt openic disorder 990640933 D69.[address] Heart Last OV 03/13/2021 , f/u yearlyLast OV 03/19/2022 , f/u yearlyOV 04/23/2023 : F/u yearly Obstructiv e sleep apnea syndrome 47052602 G47.33 S/p sleep study 12/28/17Is using the CPAP and is very compliant 04/13/2019 : CT Chest: Deysi Butler, no acute intrathora cic process, thyrodi calcificat ions, F/u USOld granulomat os disease Keep apt with [employer] 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 08/21/2021 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 Dr Warner Environmental allergy 42 5332939 T78.49XD On proairOn singulair Does well Forgetful 13646913 R41.3 Get labsS/p MRI brain 06/26/2020 May need to see neurology Pain of bi lateral knee joints 5568773731 01231 M25.561 M25.562 S/p jeff TKRs Dr Ramos 09/17/2021 Cirrhosis of liver 58779 007 K74.60 US Liver 06/26/2020 US liver 07/26/2021 : Nodular margins, cirrhosisG et an apt with GI hepatology Dr Roberts also, has seen Anastasia Francisco in 01/2021 Anastasia Gandhi [employer] 02/13/2023 , f/u in 6 monthsUS liver 03/13/2022 , see case Moderate r ecurrent major depression 83772676 F33.1 On venlafaxin e ER 75mgs dailyDoes wellNot suicidal or homicidalD eclines any referral to psychiatry Can renew when needed Essential hypertension 02907812 I10 Off lisinopril 5mgOff metoprolol ER 25mg daily, may need to adjust thisOn olmesartan COVID-19 852735036 U07.1 +ve 10/29/2022 , see case 10/29/2022 Pain of ri ght shoulder joint 7163601329 0322116 M25.511 Dr Ramos 10/01/2022 , s/p kenalog S/p MRI 03/10/2024 Dr Leyva Chronic ki dney disease 056195727 N18.[address] Darren Ying sees Dr Arora Chronic neck pain 225927 0543 107 M54.2 Get Xray C-spineIf not better, get PT and may need to see IPC Xray C-spine 12/02/2022 Screening for malignant neoplasm of colon 377896923 Z12.11 Pruritic rash 88425617 L 28.2 In the groin area, red and itchy, not examined today, no rash at present, would like a refill of nystatin-t riamcinolo ne Low back pain [id number] M54.50 Xrays noted 06/24/2023 Already on the diclofenac given by Kobe Madrigal on flexerillN eeds another apt with ortho Osteoarthr itis of bilateral hip joints [id number] M16.0 Has seen Kobe Leyva S/p xray hip 06/14/2024 : Moderate OA hips Referred to Dr Leyva 08/02/2024 Vitamin D deficiency 347 45467 E55.9 Open wound [id number] T14 .8XXA Get on triple ointment, and keep area clean and dryIs to see wound clinic [id number] Jewel loera MD [facility] General Surgery [address] [place] [address] 08/10/2024 12:25:07 08/16/2024 15:53:50 Bleeding hemorrhoids [id number] K64.9 Health Concerns Section Related Observation LastModified by Organization Detai ls LastModified Time None Recorded Concern Status LastModified by Organization Details LastModified Time None Recorded Advance Directives Directive Y: asked to bring copy for yareli florez Payers Insurance Date Sequence Insurance Name Policy Number Policy Bush Covered Member ID Bush Member ID Guarantor Name 08/16/2024 1 [employer] (MEDICARE REPLACEMENT/ ADVANTAGE - PPO) [id number] Mercedes Morales [id number] Mercedes Morales Notes Date Note Type Note Provider Name and Address Organization Details Recorded Time 12/29/2023 text/html Here to darnell Joe Hx:HypothyrodismDepr [...] review theseShe did see Dr Heart the maintenance engineer oil field and is now to see a hepatologistOV [...] doing well today Aditya Joyce MD [address] [facility], [place], [address], [place] - [facility] 12/29/2023 19:12:55 03/31/2024 text/html Here to darnell [...] review theseShe did see Dr Heart the maintenance engineer oil field and is now to see a hepatologistOV [...] do the labs Aditya Joyce MD [address] [facility], [place], [address], [facility] [employer] 03/31/2024 18:29:56 07/21/2024 text/html Here to darnell Joe Hx:HypothyrodismDepr essionReviewed social family and surgical historyShe is here to discuss above and also to get labs if neededShgladys feels that she is doing well otherwiseOV 10/29/17:Here for her routine aptShe does have epigastric pain, ongoing since the past 3 weeks agoDid take the TUMS and this helpedShgladys did do the labs today in the [...] review theseShe did see Dr Heart the maintenance engineer oil field and is now to see a hepatologistOV 09/21/18:Here for her routine aptShe has some redness in the L lower leg, did have a DVT last use of xarelto was in 05/28No recent labsNo other complaints at this timeOV 10/21/18:Here for her routine aptShe did do labsShe here with her husbandDoing wellOV 01/25/19:Here for her routine aptShe has not done the labs as vivekTiffani did see the ortho ANTWAN Pelaez for [...] the shoulder, she did do the labs OV 07/21/2024: ACVHas noted an open wound to the buttock area, as per her she has been in the recliner chair to '15 hours a day',No fevers or chillsNo d/c Aditya Joyce MD [address] [facility] [address], [place], [address], [facility] [employer] [facility] 07/21/2024 17:43:50 08/02/2024 text/html Here to darnell Joe Hx:HypothyrodismDepr essionReviewed [...] review theseShe did see Dr Heart the maintenance engineer oil field and is now to see a hepatologistOV [...] denies any loss of smell or tasteNo rashMilade did do the labsShe is here for [...] the shoulder, she did do the labs OV 07/21/2024: Rosa Marias noted an open wound to the buttock area, as per her she has been in the recliner chair to '15 hours a day',No fevers or chillsNo d/c OV 08/02/2024: Here for her f/u apt, she is doing well here with her husbandNo new PCP labs, she still has the wound but states that it is getting better, worries about the wound as she does have her R shoulder surgery to be done Aditya Joyce MD [address] [facility] [address], [place], [address], [place] 08/02/2024 11:22:26 08/10/2024 text/html Patient presents to clinic to discuss hemorrhoids. States she had a hard bowel movement last week and noticed some bright red blood when wiping. States the spot kept bleeding so she went to the ER. PCP referred her here for hemorrhoid evaluation.She states there is no pain associated. Little bleeding at this point; only when wiping. Jewel Santizo MD [address], [facility] [address], [place], [address], [place] 08/12/2024 12:20:41 OBGyn Episode No OBEpisode recorded.
--- OUTSIDE RECORDS SUMMARY | 2024-08-26 02:39 | XMS_ITS | Clinical Summary ---
Author Organization [facility] [employer] Address [address] [place] [address] Care Team Providers Care Cutting Machine Tender Decorative Name Role Phone Soy Joyce MD Primary Care Provider Source Comments [facility],non-owned Affiliates and Associated Physician Practices is amultiple site organization consisting of ambulatory clinics and hospital sitesin [place], [place], [place] and [place]. This disclosure is being madepursuant to the Care Everywhere program and may not contain all information available regarding this patient. Last updated 17.[facility] [employer] Allergies No known active allergies Medications * [...] by mouth 2 times daily Active Multiple Vitamins-Intermediate Accountant als (WOMENS MULTI VITAMIN & MINERAL PO) [...] - 07/26/2024 11:59 PM CDT Hospital Encounter [facility] [address] [place] [address] Anastasia Gandhi, MARINE TECHNICIAN-SMOKING TOBACCO CUTTER OPERATOR Discharge Disposition: Home or Self Care 07/26/2024 [...] Comments Blood Pressure 133/72 03/04/2024 10:58 AM VENTILATING ENGINEER Pulse 92 03/04/2024 10:58 AM VENTILATING ENGINEER Temperature 37.2 C (99 F) 03/04/2024 10:58 AM VENTILATING ENGINEER Respiratory Rate 18 02/13/2023 10:1 3 AM VENTILATING ENGINEER Oxygen Saturation 95% 03/04/2024 10: 58 AM VENTILATING ENGINEER Inhaled Oxygen Concentration - - Weight 100.1 kg (220 lb 9.6 oz) 025 10:58 AM VENTILATING ENGINEER Height 165.1 cm (5' 5) 03/04/2024 10:5 8 AM VENTILATING ENGINEER Body Mass Index 36.71 03/04/2024 10:58 AM VENTILATING ENGINEER Plan of Treatment Health Maintenance Due Date [...] URINE PROTEIN SCREENING 02/11/2024 11/27/2022, 03/05/2022 MEDICARE AW CALENDAR YEAR 2024 INFLUENZA VACCINE (#1) 2024 , 12/06/2019, 12/11/2018, Additional history exists DIABETES-SERUM CREATININE 03/04/20252024, 11/27/2022, [...] Management General On track( 025 10:55 AM VENTILATING ENGINEER) No Lana Shultz RN Note: Expected end date: Ongoing Interventions: Take all medications as prescribed Let your doctor know right away about any changes in your medications Make sure to request a refill of your medication at least one week prior to your last dose Safety General On track( 11:03 AM VENTILATING ENGINEER) No Neida Javed RN Note: Expected [...] COMPREHENSIVE METABOLIC PANEL Routine 03/04/2024 12:25 PM VENTILATING ENGINEER 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 Creatinine 0.92 0.56 - 0.96 mg/dL 03/04/2024 12:59 PM [facility] Sodium 141 136 - 145 mmol/L 03/04/2024 12:59 PM [facility] Potassium 4.6(H) 3.5 - 4.5 mmol/L 03/04/2024 12:59 PM [facility] Chloride 106 98 - 107 mmol/L 03/04/2024 12:59 PM [facility] CO2 26 22 - 29 mmol/L 03/04/2024 12:59 PM [facility] Glucose 110(H) 70 - 99 mg/dL 03/04/2024 12:59 PM [facility] Calcium 9.7 8.4 - 10.2 mg/dL 03/04/2024 12:59 PM [facility] Protein Total 7.5 6.0 - 8.3 g/dL 03/04/2024 12:59 PM [facility] Albumin 4.0 3.4 - 5.0 g/dL 03/04/2024 12:59 PM [facility] Bilirubin Total 0.6 0.2 - 1.2 mg/dL 03/04/2024 12:59 PM [facility] Alkaline Phosphatase 51 40 - 150 U/L 03/04/2024 12:59 PM [facility] ALT 26 5 - 55 U/L 03/04/2024 12:59 PM [facility] AST 30 5 - 34 U/L 03/04/2024 12:59 PM [facility] Anion Gap 9 6 - 16 03/04/2024 12:59 PM [facility] BUN/Creatinine Ratio 17 7 - 23 03/04/2024 12:59 PM [facility] Osmolality Calculated 294 275 - 295 mOsm/kg 03/04/2024 12:59 PM [facility] Albumin/Globulin Ratio 1.1 1.1 - 2.3 03/04/2024 12:59 PM [facility] eGFR by CKD-EPI 63(L) >=90 mL/min/1.7 3 m2 03/04/2024 12:59 PM [facility] Blood BLOOD SPECIMEN / Unknown Lab Venipuncture / Unknown 03/04/2024 12:25 PM VENTILATING ENGINEER 03/04/2024 12:32 PM VENTILATING ENGINEER Anastasai Jannie Gandhi MARINE TECHNICIAN-SMOKING TOBACCO CUTTER OPERATOR LAB - CHEMISTRY ORD ERABLES Final Result [facility] [address] [address], [facility] [phone] * MICROALB/CREAT RATIO URINE (EXTERNAL RESULT ENTRY) (11/27/2022 9:45 AM CDT) Microalb/Creat Ratio (EXTERNAL RESULT) 84.4 mg/g OTHER LAB Urine URINE / Unknown 11/27/2022 9 :45 AM CDT Historical Provider LAB - URINE CHEMISTRY ORD ERABLES Final Result Performing Organization Address City/[facility]/ZIP Co de Phone Number OTHER LAB * HEMOGLOBIN A1C (EXTERNAL RESULT ENTRY) (11/27/2022 9:45 AM CDT) Hemoglobin A1c (EXTERNAL RESULT) 5.6 % OTHER LAB Blood BLOOD SPECIMEN / Unknown 11/27/2022 9:45 AM CDT Historical Provider LAB - CHEMISTRY ORDERABLE S Final Result OTHER LAB from Last 3 Months or Most Recently Relevant to Health Maintenance Insurance AETNA AETNA MEDICARE ADV Care Teams Cutting Machine Tender Decorative Relationship Specialty Start Date End Date Soy Joyce MD [address] [facility] [address] [place] [address] PCP - General 02/04/21
[2024-12-09 13:02] VITALS: BMI 38.2
--- NOTE | 2024-12-09 13:33 | PC.NURSE ---
[facility] has started construction of its new state of the art ER which will open Spring 2026. With this, we anticipate parking may be a challenge for some our surgical patients and families. Parking spaces are limited but are available for all Surgical, obstetrics, and ER patients sharing this lot. If you arrive and find you are having a hard time finding a parking space, please note that we understand the challenges, please drive around the hospital and park near Hospital Entrance 1. When you enter this entrance, you can ask a volunteer to direct or take you back to the surgical waiting area to check in. We appreciate everyone?s understanding of these expected challenges while we build for your future. Report to the Outpatient Waiting Room, entrance under the green pavilion located off [address], at time __6:00AM___ on date ___12/16/24__. Planned Procedure Time: __7:30AM____.? Time changes happen often and if your time is changed the preop area will call you the afternoon before. - You and your visitor will be asked to self-screen and do not enter if you have any COVID symptoms. Please call surgeon if you need to reschedule. - A mask is optional within the hospital at this time. Patients may have clear liquids (water, carbonated beverages, clear teas, apple juice) until 3 hours prior to surgery (4:30AM) with a maximum of 20 ounces. - No food from midnight until time of surgery and no smoking, or chewing tobacco (or any form of nicotine). No chewing gum, candy or mints. Take only the following medications with a SIP of water on the morning of surgery: ___LEVOTHYROXINE, METOPROLOL, VENLAFAXINE DO NOT STOP ANY OF YOUR OTHER PRESCRIPTION MEDICATIONS PRIOR TO SURGERY EXCEPT THE FOLLOWING Hold all vitamins and supplements for 3 days per anesthesiologist. LAST DOSE 12/12/24 Medications to discontinue per physician ___HOLD DICLOFENAC GEL (ALL NSAIDS) 7 DAYS PRE-OP PER DR KAUR Date to take last dose 12/08/24 Please no make-up, nail syriac, hairspray, perfume, deodorant, or body powder the day of surgery.? No jewelry (including any body piercings) or valuables the day of surgery, leave them at home.? Please take a shower or bath the night before, or the morning of, surgery with an antibacterial soap.? Wear comfortable, loose fitting clothing.? - Jewelry must be removed prior to entering the operating room.? Rings and piercings that are not removed may be cut off. - The hospital will not accept responsibility for valuables.? - Please leave all valuables, including medications, at home the day of surgery. If you are going home after surgery, a licensed pole truck driver must drive you home.? - NO public transportation without another adult if you receive anesthesia. - We recommend that an adult stay with you for 24 hours following discharge. - We also recommend that you do not drive, make important decision, drink alcoholic beverages, or take any drugs that were not prescribed by your health care provider for at least 24 hours after your discharge time. Follow any additional instructions given to you from your surgeon. Telephone instructions given to ____PATIENT and asked if any additional questions and then verbalized understanding. Patient advised to call surgeon office or pre surgery nurse liaison [phone] if any additional questions.
[2024-12-16] VITALS (18 sets, daily range): BP systolic 98–125; BP diastolic 38–84; PULSE 77–88; RESP 14–22; TEMP 35.9–36.9; O2SAT 88–98
--- NOTE | ~2024-12-16 | XR_ITS ---
EXAMINATION: XR shoulder RT min 2V, 12/16/2024 10:45 PUBLIC ADDRESS ANNOUNCER HISTORY: POST-OP RIGHT REVERSE TOTAL SHOULDER COMPARISON: No comparisons available. Findings: No acute fracture or malalignment. Arthroplasty is intact Soft tissues unremarkable. Impression: No acute fracture or malalignment. Reviewed, dictated and finalized at location P. IC ADDRESS ANNOUNCER Impression: No acute fracture or malalignment.
[2024-12-16 06:53] LABS: Platelet Count Result 166 k/mm3 (150-375)
[2024-12-16] MEDS: TRANEXAMIC ACID 1,000MG/ISO100 1,000 MG/100 ML BAG 200 MG IVPB (07:00)
[2024-12-16] MEDS: ACETAMINOPHEN 500 MG TABLET 1000 MG PO (07:00)
[2024-12-16] MEDS: LACTATED RINGERS 1,000 ML 30 ML IV CONT ×2 (07:00→09:45)
--- NOTE | 2024-12-16 07:00 | WPDANESEPPF ---
Anes - Initial Pre Proc Eval Procedure: Operation Date: 12/16/24 07:30 Proposed Procedures p Right Reverse Total Shoulder Arthroplasty - Rich Leyva MD Date/Time: 12/16/24 07:00 Surgeon: Rich Leyva MD Pre Op Diagnosis: Prim O A Right Shoulder Patient Data Age: 79 Gender: F Height: 1.59 m Weight: 96.4 kg Last Vital Signs Temp 36.8 C 07/28/24 10:10 Pulse 89 07/28/24 10:10 Resp 16 07/28/24 10:10 BP 117/63 07/28/24 10:10 Pulse Ox 95 07/28/24 10:10 O2 Del Method Room Air 07/28/24 10:10 Allergies Allergy/AdvReac Type Severity Reaction Status Date / Time No Known Allergies Allergy Verified 12/09/24 12:52 Home Medications ?Medication ?Instructions ?Recorded ?Confirmed ?Type multivitamin (One Daily 1 tablet PO DAILY 05/22/23 12/06/24 History Multivitamin tablet) rosuvastatin 20 mg tablet 20 mg PO DAILY 05/22/23 12/06/24 History venlafaxine 75 mg capsule,extended 75 mg PO DAILY 05/22/23 12/06/24 History release 24 hr cholecalciferol (vitamin D3) 125 250 mcg PO DAILY 06/17/24 12/06/24 History mcg (5,000 unit) capsule montelukast 10 mg tablet 10 mg PO DAILY 06/17/24 12/06/24 History olmesartan 5 mg tablet 5 mg PO DAILY 07/28/24 12/06/24 History Calcium 600 mg PO DAILY 11/23/24 12/09/24 History diclofenac sodium 1 % topical gel 2 g topical QID 12/06/24 12/09/24 History (Voltaren Arthritis Pain) metoprolol succinate 25 mg 25 mg PO DAILY 12/06/24 12/09/24 History tablet,extended release 24 hr calcium 600 mg (as 1 tablet PO DAILY 12/09/24 12/09/24 History carbonate)-vitamin D3 5 mcg (200 unit) tablet (Calcium 600 + D(3)) docusate sodium 100 mg capsule 200 mg PO DAILY 12/09/24 12/09/24 History (Stool Softener) levothyroxine 125 mcg tablet 125 mcg PO QAM 12/09/24 12/09/24 History Laboratory Tests 12/16/24 06:45 Plt Count Pending MPV Pending Patient hx anesthesia problems: none Family hx anesthesia problems: none Results Review: All pre-operative results and documents have been reviewed as part of the pre-operative evaluation. [facility] Past Medical History Medical History (Updated 12/16/24 @ 07:01 by Albin Karimi DO) Hypothyroidism MINA (obstructive sleep apnea) History of cataract Hyperlipemia Hypertension Surgical History Surgical History History of knee surgery History of hernia repair History of cholecystectomy History of carpal tunnel release left History of elbow surgery left History of tonsillectomy Family History Family History Grandparent Breast cancer Father Hypertension Asthma Blood clot in leg Cerebrovascular accident Mother Hypertension Blood clot in leg Sibling No problems noted. Social History Social History Smoking status: Former smoker Tobacco type: cigarettes Second hand tobacco smoke exposure: Yes Alcohol intake: never Substance use: never Substance use type: does not use Lack of Transportation: No Lack of Food: Never True Current Housing: I Have Housing Concerned About Future Housing: No Difficulty Paying Gas/Electric Bills: No Difficulty Paying for Meds: No Currently Unemployed: No Education: Master's Degree or Higher Difficulty w/ Childcare or Family Care: No Living arrangements: with family Additional living arrangements comments: [facility] Occupation/Education: retired 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 [employer] Gender identity (if verbalized by the patient): Female Spiritual care concerns: No Anes - Eval Final PreProcedure Day of Procedure 12/16/24 07:00 Patient weight: obese Heart: regular rate and rhythm Lungs: clear to auscultation Airway: Mallampati scale class II Neurological: alert and oriented Last oral intake: >/= 8 hours ASA classification: III Emergent: no Anesthetic plan: proceed Anesthesia type and monitoring: general ETT and standard monitoring Results Review: All pre-operative results and documents have been reviewed as part of the pre-operative evaluation. Informed Consent: The patient's anesthetic plan and its attendant risks and benefits were discussed with the patient/family/POA. Questions were solicited and answers provided to the satisfaction of the patient/family/POA.
--- NOTE | 2024-12-16 07:17 | WPDHPUPDATE1 ---
History and Physical Update Update Date/Time: 12/16/24 07:17 History and Physical has been reviewed, including an updated exam of the patient. There are NO changes in the patient's condition. Risks, benefits, and alternatives have been discussed and questions answered. Patient agrees to proceed with procedure.
[2024-12-16] MEDS: ceFAZolin 2 GM in SODIUM CHLORIDE 0.9% IV 50 ML 100 ML IVPB ×3 (07:30→22:00)
[2024-12-16] MEDS: SODIUM CHLORIDE 0.9% IV 37.7 ML, MORPHINE SULFATE INJ (*CRX) 2 MG, ROPivacaine HCL 1% 2... INFILTRATE (08:22)
[2024-12-16] MEDS: VANCOMYCIN HCL 1,000 MG VIAL 1000 MG TOPICAL (09:04)
--- NOTE | 2024-12-16 09:43 | WPDANESPNB ---
Anes - Peripheral Nerve Block Date/Time: 12/16/24 09:43 I have discussed with the patient/family/POA the placement of a peripheral nerve block for post-operative pain management, including associated risks, benefits, complications, and side effects. Alternative methods of post-operative analgesia were detailed. Questions were solicited and answers provided to the satisfaction of the patient/family/POA. Time-Out: A pre-procedural Time-Out was completed immediately before starting the procedure and confirmed: Patient Identification, Site, Procedure, Patient Position and the Availability of Requisite Equipment. Clinical Indications: Acute post-operative pain management requested by the operative surgeon. Nerve Block Insertion Note Anes-nerve block: interscalene right Patient position: supine Skin prep: chlorhexidine Needle: 22 gauge, stimulating, insulated echogenic needle. Needle length: 50 mm Technique: ultrasound Injectate: bupivacaine 0.5% with epi 5 mcg/ml (20cc- no epi) Observations: tolerated well Complications: none Procedure start time:: 1022 Procedure end time:: 1025
[2024-12-16] MEDS: fentaNYL CITRATE INJ (*CRX) 100 MCG/2 ML VIAL 25 MCG IV PUSH ×4 (10:10→10:25)
--- NOTE | 2024-12-16 10:20 | W.PM.PROC2 ---
Procedure Note - Detailed Date of Procedure 12/16/24 Pre-op Diagnosis Right shoulder severe glenohumeral arthritis Post-op Diagnosis Same Procedure Performed Reverse total shoulder arthroplasty, right Surgeon Rich Leyva MD Hose Handler Arlene Parr PA-C Anesthesia General Findings Advanced glenohumeral arthritis. Large humeral head osteophytes with femoral head collapse. Good bone quality. Description of Procedure Preoperative antibiotics were given. The patient was transferred to the operating room and a general anesthetic was administered. The beach chair position was used at 45 degrees. All bony prominences were padded. The head was carefully stabilized on the [facility] heading repairer. A sterile prep and drape was performed in the usual manner with ChloraPrep. A longitudinal incision was created at the anterior shoulder just lateral to the deltopectoral interval. Careful dissection was performed to expose the interval and protect the cephalic vein. The vein was retracted medially. Anterior circumflex vessel branches were suture ligated. The biceps was tenodesed. A subscapularis tenotomy was performed. The inferior capsule was released, exposing the humeral head. Osteophytes were removed. Care was taken to stay on bone to protect the axillary nerve. The neck anteversion and inclination were carefully assessed. Version was between 20? and 30?. The anatomic head cut was taken with the oscillating saw. The cut protector was placed, and attention was turned to the glenoid. Retractors were placed. Releases were carried out for exposure. The subscapularis was mobilized, the inferior capsule and long head of triceps released, and the superior and middle glenohumeral ligaments released as well. Labral tissue was resected as needed. Version and inclination were corrected according to preoperative templating. The sizing template was used to assess the baseplate position low on the glenoid, with an approximate 3 degree corrections of retroversion and 5 degrees of inclination. A guide pin was placed. Minimal reaming was used to accomplish a flat surface without violating the subchondral bone. The boss was drilled, and the real component was impacted into position. The central compression screw was placed. Supplemental locking screws were placed superiorly, and inferiorly. The glenosphere was impacted into the taper. Attention was turned to the humerus. The guide pin was placed, central drilling performed, and the broach trial inserted. The proximal humerus was reamed for the inset component. The humeral components were trialed. The real humeral stem, tray, and insert were impacted into position. The shoulder was copiously irrigated periodically with pulsatile lavage. The shoulder was reduced and stability confirmed. 1 gram of Vancomycin powder was placed in the joint. The subscapularis was repaired. Biceps tenodesis performed. The remaining tissue was closed with 2-0 Vicryl, 3-0 Stratafix and 4-0 Stratafix, and steri-strips. A sterile silver occlusive dressing and shoulder immobilizer were placed. The patient was transferred to the recovery room. Physician child and youth program assistant, Arlene Parr PA-C, required for surgery; including patient positioning, draping, tissue retraction, maintaining instrument position, wound closure, and dressing placement. Implants Shoulder Innovations reverse TSA size 0 stem. +0 polyethylene insert. Standard baseplate. 33 + 3 mm glenosphere. Estimated Blood Loss 200 Drains No Pathology None sent Complications No immediate complications Condition Stable Disposition PACU [facility] Billing Surgery - Charge Forward: Surgery Billing
--- NOTE | 2024-12-16 11:36 | ADMGEN ---
This patient, Mercedes Wilkerson, was admitted to 3 [facility] Room 300-01. Patient/family oriented to hospital policies and general routines including ID bracelet, bed and alarms, visiting hours, pain management, procedures, bathroom and other care routines, personal items, smoking policy, room service/diet, and visiting hours. Information on how to activate the Rapid Response Team has been discussed. Patient/Family are encouraged to report perceived risks to care and to ask questions if they do not understand what they are told or what they should do.
[2024-12-16] MEDS: ACETAMINOPHEN 325 MG TABLET 650 MG PO ×2 (12:36→17:10)
[2024-12-16] MEDS: FAMOTIDINE 20 MG TABLET PO ×2 (12:37→22:00)
[2024-12-16] MEDS: SENNA/DOCUSATE SODIUM TABLET 2 TAB PO (12:37)
[2024-12-16] MEDS: MONTELUKAST SODIUM 10 MG TABLET PO (12:38)
[2024-12-16] MEDS: ROSUVASTATIN 20 MG TABLET PO (12:38)
--- OUTSIDE RECORDS SUMMARY | 2024-12-16 16:12 | XMS_ITS | Data Portability ---
Author Organization [place] [facility], Main Office Address [address] [place] [address] Care Team Providers Care Diesel Engine Engineer Name Role Phone ADITYA JOYCE Primary Care Provider [phone] ADITYA JOYCE Referring Provider FRAN WARNER Circulation Manager PABLO [employer] Hedge Fund Trader ANASTASIA GANDHI Cardiovascular Surgical Tech Assessment Encounter Date Assessment Date Assessment LastModified by Organization Details LastModified Time 08/02/2024 08/02/2024 07/26/2022: TSH 0.055L, FT4 2.10 [...] on exam today. Patient is travelling to [place] next week and is feeling much better at this time. She does not wish to undergo any surgical intervention. Recommended high fiber diet, stool softener/miralax PRN, hydration, and steroid suppositories PRN for conservative management of symptoms. Patient agreeable. RTC PRN. [email or web address] Not available 08/10/2024 18:12:46 10/04/2024 10/04/2024 07/26/2022: TSH 0.055L, FT4 2.10 11/27/2022: A1C [...] Gluc 128 MCV 100.2 07/28/2024: Dr Leyva 09/29/2024: A1C 5.2 TSH 37.700H, FT4 0.88 Urine micro alb 37.9 Gluc 123 MCV 100.7 Not available 10/03/2024 12:46:38 11/01/2024 11/01/2024 Assessment: Very severe OSAHS, AHI = 73 Plan: The following were reviewed and explained to the patient: [facility] split sleep study 12/28/17 AHI = 73, Esthela small Eson nasal mask @ 10 cmH2O PAP compliance downloaded and interpreted x 20 minutes. Data reviewed and explained to the patient. Average apnea/hypopnea index (AHI) is 3.0. Patient used PAP > 4 hours 93% of the time. PAP is set at 11 cmH2O. PAP will remain at 11 cmH2O. Keep ramp off. Keep EPR +1 conservation enforcement officer. Oxygen supplementation: none Keep humidifier level on automatic mode. Keep tube temperature on automatic mode. Patient is benefiting from PAP therapy. Encouraged [...] carrier. Patient will setup an appointment with [facility] for supplies and pressure adjustments. A major predictor of success with use of PAP is follow-up with both the respiratory supplier and the treating physician. The download results can show the treating [...] records to PCP for further management. Follow-up: 1 year, October 2025 [email or web address] Not available 11/01/2024 14:32:25 Plan of Treatment Reminders Order Date Submit Date Provider Last Modified By Organization Details Last Modified Time Details Appointments Follow Up 2025 10:30A M Aditya rueda MD Not available Not available Not available Follow Up 2025 10:00A M Fran Warner MD Not available Not available Not available Lab lipid panel, serum 2024 025 [facility] (Lab), [address] [place] [address], [id number], 10/04/2024 15:38:57 CMP, serum or plasma 2024 025 [facility] (Lab), [address] [place] [address], [id number], 10/04/2024 15:38:57 CBC w/ auto diff 2024 025 [facility] (Lab), [address] [place] [address], [id number], 12/13/2024 16:46:01 TSH + free T4, serum 2024 025 [facility] (Lab), [address] [place] [address], [id number], 10/04/2024 15:38:57 vitamin D3, 25-hydrox y, serum 2024 025 [facility] (Lab), [address] [place] [address], [id number], 10/04/2024 15:38:57 microalbu min, urine 2024 025 [facility] (Lab), [address] [place], [place] [address], [address], 10/04/2024 15:38:57 glycohemo globin, total, blood 2024 025 [facility] (Lab), [address] [place] [address], [place], [address], 10/04/2024 15:38:57 lipid panel, serum 2024 025 [facility] (Lab), [address] [place] [address], [place], [address], 09/29/2024 13:00:37 CMP, serum or plasma 2024 025 [facility] (Lab), [address] [place] [address], [id number], 09/29/2024 13:00:47 CBC w/ auto diff 2024 025 [facility] (Lab), [address] [place] [address], [place], [address], 09/29/2024 12:32:21 TSH + free T4, serum 2024 025 [facility] (Lab), [address] [place] [address], [id number], 08/02/2024 16:48:00 vitamin D3, 25-hydrox y, serum 2024 025 [facility] (Lab), [address] [place] [address], [id number], 08/02/2024 16:48:00 microalbu min, urine 2024 025 [facility] (Lab), [address] [place] [address], [address], 09/29/2024 13:10:06 glycohemo globin, total, blood 2024 025 [facility] (Lab), [address] [place] [address], [id number], 09/29/2024 12:50:56 Referral gastroent erologist referral - Please call patient to schedule an appointme nt. Thank you. 2024 025 DYANA Gandhi DUCT MAKER, [address] [facility], [place], [address], 10/05/2024 09:47:14 orthopedi c surgeon referral - Please call patient to schedule an appointme nt. Thank you. 2024 025 ROMEO Leyva MD, [address] [facility] [address], [place], [address], 11/23/2024 17:54:37 pulmonolo gist referral - Please call patient to schedule an appointme nt. Thank you. 2024 025 [email or web address] Fran Warner MD, [address] [place], [address], 10/05/2024 09:15:23 hematolog ist referral - Please call patient to schedule an appointme nt. Thank you. 2024 025 DYANA Heart MD, [address], [place], [address], 10/05/2024 09:36:42 podiatris t referral - Please call patient to schedule an appointme nt. Thank you. 2024 025 ROMEO HOLDERM, [address], [place], [address], 11/11/2024 16:25:42 gastroent erologist referral - Please call patient to schedule an appointme nt. Thank you. 2024 025 [email or web address] Anastasia Gandhi DU[employer]KER, [address] [facility], [place], [address], 11/08/2024 11:03:46 orthopedi c surgeon referral - Please call patient to schedule an appointme nt. Thank you. 2024 025 elroy Leyva MD, [address], [place], [address], 11/01/2024 11:00:28 pulmonolo gist referral - Please call patient to schedule an appointme nt. Thank you. 2024 025 [email or web address] Fran Warner MD, [address] [facility], [place], [address], 11/08/2024 10:52:08 hematolog ist referral - Please call patient to schedule an appointme nt. Thank you. 2024 025 [email or web address] Pablo Heart MD, [address], [place], [address], 11/08/2024 11:03:22 gastroent erologist referral - Please call patient to schedule an appointme nt. Thank you. 2024 025 [email or web address] Kylah Thompson MD, [address] [facility], [place], [address], 11/08/2024 11:14:55 podiatris t referral - Please call patient to schedule an appointme nt. Thank you. 2024 025 elroy HOLDERM, [address], [place], [address], 11/01/2024 11:00:27 wound care referral - Pt needs appt STEPHENIE due to open wound on rt flank per the provider - [facility]green 2024 025 elroy [facility], [address], [place], [address], 11/01/2024 11:00:28 Procedures None recorded. Surgeries None recorded. Imaging None recorded. Medication Orders venlafaxi ne ER 75 mg capsule,e xtended release 24 hr 2024 025 ROMEO [id number], [address], [place], [place], [id number], 10/04/2024 11:45:51 levothyro xine 125 mcg tablet 2024 025 [email or web address] [facility][id number], [address], [place], [place], [id number], 11/25/2024 11:40:28 Patient TargetsNo targets recorded. Patient InstructionsNo instructions recorded. Reason for Referral Money Examiner Referral for Type 2 diabetes mellitus without complication Please call patient to schedule an appointment. Thank you. Referring Physician: Aditya Joyce Internal Medicine, Encounter Date: 08/02/2024 Circulation Manager Referral for O bstructive sleep apnea syndrome [...] Aditya Joyce Internal Medicine, Encounter Date: 08/02/2024 Cardiovascular Surgical Tech Referral for Cirrhosis of liver Please call patient to schedule an appointment. Thank you. Referring Physician: Aditya Joyce Internal Medicine, Encounter Date: 08/02/2024 Cardiovascular Surgical Tech Referral for Screening for malignant neoplasm of colon Please call patient to schedule an appointment. Thank you. Referring Physician: Aditya Joyce Internal Medicine, Encounter Date: 08/02/2024 Pt needs appt STEPHENIE due to op en wound on rt flank per the provider - fgreen Referring Physician: Kyaw Mccann Medicine, Encounter Date: 08/02/2024 Money Examiner Referral for Type 2 diabetes mellitus without complication Please call patient to schedule an appointment. Thank you. Referring Physician: Aditya Joyce Internal Medicine, Encounter Date: 10/04/2024 Circulation Manager Referral for O bstructive sleep apnea syndrome Please call patient to schedule an appointment. Thank you. Referring Physician: Aditya Joyce Internal Medicine, Encounter Date: 10/04/2024 Please call patient to sched ule an appointment. Thank you. Referring Physician: Aditya Joyce Internal Medicine, Encounter Date: 10/04/2024 Orthopedic Surgeon Referral for Osteoarthritis of bilateral hip joints Please call patient to schedule an appointment. Thank you. Referring Physician: Aditya Joyce Internal Medicine, Encounter Date: 10/04/2024 Cardiovascular Surgical Tech Referral for Cirrhosis of liver Please call patient to schedule an appointment. Thank you. Referring Physician: Aditya Joyce Internal Medicine, Encounter Date: 10/04/2024 Results Created Date Observation Date Name Description Value Unit Range Abnormal Flag Note LastModifiedBy Organization Detail LastModifiedTime 11/13/1911/12/2024 imagi ng/brianne el tic resul t No observ ation record ed. [facility] [address] [place], [address], 11/12/2024 16:57:26 12/09/1912/08/2024 CT, maxshannan lojorgec ial, w/o contr ast [facility] [address] [place] [address] [phone] RADIOL OGY REPORT _ Patien t Name: ZHOU Shanks Date Of : [birth year] Date Of Study: 2024 09:54 Ref. Physic gerber: JERICA ARAGON N _ Examin ation: CT MAXILL OFACIA L WO CLINIC AL INDICA TION: CHRONI C SINIUS ITIS. COMPAR HONG: None. CONTRA ST USED: None. TECHNI QUE: A plain CT study of the sinus is perfor med. Techni que for this CT scan was done using princi ples of ALARA (As Low As Reason ably Achiev able). Multip lanar recons tructi ons were obtain ed. FINDIN GS: Mild mucosa l thicke marisela is seen along the floor of the left maxill xenia sinus, repres enting sinusi tis. Both fronta l, ethmoi d, right maxill xenia, and spheno id sinuse s appear clear withou t apprec iable mucosa l thicke marisela or fluid accumu lation , except for the mild thicke marisela noted in the left maxill xenia sinus. The bony outlin es of the parana tomi sinuse s appear intact with no obviou s bone erosio n or destru ction. The Aleisha mary ann and cribri form plates appear normal . The sectio n throug h the orbit reveal s normal retrob ulbar struct ures on either side. S-shap ed deviat ion of the nasal septum is noted. There is mild hypert rophy of the right inferi or turbin ate and right middle turbin ate. IMPRES MICHELLE: 1. Mild mucosa l thicke marisela along the floor of the left maxill xenia sinus consis tent with sinusi tis. 2. S-shap ed nasal septal deviat ion. 3. Mild hypert rophy of the right inferi or and middle turbin ates. 4. No bone erosio n or destru ctive change s identi fied. Electr onical ly Signed 2024 11:[address] (Imaging) [address] [place], [address], 12/15/2024 15:39:28 12/09/19 25 12/08/2024 imagi ng/di agnos tic resul t No observ ation record ed. [facility] [address] [place], [address], 12/08/2024 12:31:20 12/09/19 25 12/08/2024 CT, sinus es, w/o contr ast No observ ation record ed. [address] ([employer]) [address] [place], [address], 12/15/2024 15:39:28 12/11/19 25 12/10/2024 CT, sinus es, w/o contr ast No observ ation record ed. BARCODE [facility] ([employer] [facility]) [address] [place], [address], 12/10/2024 12:32:49 Result Notes Documentation Provider Name and Address Organization Details Recorded Time Ct, Maxillofacial, W/o Contrast : [facility] [address] [place], [place] [id number] RADIOLOGY REPORT _ Patient Name: CARMEN Shanks Date Of : 1945 Date Of Study: 12/08/2024 09:54 Ref. Physician: MATTHEW Valderrama _ Examination: CT MAXILLOFACIAL WO CLINICAL INDICATION: CHRONIC SINIUSITIS. COMPARISON: None. CONTRAST USED: None. TECHNIQUE: A plain CT study of the sinus is performed. Technique for this CT scan was done using principles of ALARA (As Low As Reasonably Achievable). Multiplanar reconstructions were obtained. FINDINGS: Mild mucosal thickening is seen along the floor of the left maxillary sinus, representing sinusitis. Both frontal, ethmoid, right maxillary, and sphenoid sinuses appear clear without appreciable mucosal thickening or fluid accumulation, except for the mild thickening noted in the left maxillary sinus. The bony outlines of the paranasal sinuses appear intact with no obvious bone erosion or destruction. The Aleisha mary ann and cribriform plates appear normal. The section through the orbit reveals normal retrobulbar structures on either side. S-shaped deviation of the nasal septum is noted. There is mild hypertrophy of the right inferior turbinate and right middle turbinate. IMPRESSION: 1. Mild mucosal thickening along the floor of the left maxillary sinus consistent with sinusitis. 2. S-shaped nasal septal deviation. 3. Mild hypertrophy of the right inferior and middle turbinates. 4. No bone erosion or destructive changes identified. Electronically Signed 12/08/2024 11:27 HOMAR Monique, [employer] 12/15/2024 15:39:28 Problems Name Problem SNOMED Code Status Onset Date Resolution Date Notes Provider Name and Address Organization Details Recorded Time Deep venous thrombosis 071807874 Active Fran Warner MD [address] [facility], [place], [address] , [employer] 5 11:44:38 Cataract 745839216 Active Fran Warner MD [address], [place], [address] , [facility] 5 11:44:44 Localized, primary osteoarthr itis of the hand 263298003 Active Fran Warner MD [address], [place], [address] , [facility] 5 11:44:26 Osteoarthr itis of knee 217552689 Active Fran Warner MD [address], [place], [address] , [facility] 5 11:44:15 Cervical spondylosi s without myelopathy 458972318 Active Fran Warner MD [address], [place], [address] , [employer] 5 11:44:43 Hypothyroi dism 97293865 Active Fran Warner MD [address], [address], [place], [address] , [employer] 5 11:44:28 Rhinitis 16272866 Active Fran Warner MD [address], [address], [place], [address] , [employer] [facility] [employer] 5 11:44:12 Diabetes mellitus 01374399 Active Fran Warner MD [address], [place], [address] , [facility] 5 11:44:36 Essential hypertensi on 69761071 Active 2017 Not Available [facility] 3 09:34:23 Cirrhosis of liver 58574533 Active 2018 Fran Warner MD [address], [place], [address] , [employer] [facility] 5 11:44:39 Body mass index 30+ - obesity 993668959 Active 2018 Fran Warner MD [address], [place], [address] , [employer] [facility] [employer] 5 11:44:50 Obstructiv e sleep apnea syndrome 55396450 Active 2018 Fran Warner MD [address], [place], [address] , [employer] [facility] [employer] [facility] 5 14:19:26 Vitamin D deficiency 86600552 Active 2021 Fran Warner MD [address], [place], [address] , [facility] 5 11:44:02 Hyperlipid emia 16861814 Active 2021 Fran Warner MD [address], [place], [address] , [facility] 5 11:44:29 Gastroesop hageal reflux disease without esophagiti s 949815546 Active 2022 Fran Warner MD [address], [address], [place], [address] , [facility] 5 11:44:32 Moderate recurrent major depression 00968692 Active 2022 Fran Warner MD [address], [place], [address] , [facility] 5 11:44:23 Environmen shayy allergy 843226861 Active 2022 Fran Warner MD [address], [place], [address] , [facility] 5 11:44:33 Osteoarthr 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 5984070588090 00 Active 2022 Fran Warner MD [address], [address], [place], [address] , [facility] 5 11:44:17 COVID-19 548169512 Active 2022 Katie hernandez, [facility] 3 14:26:23 Chronic kidney disease 084585100 Active 2022 Fran Warner MD [address], [address], [place], [address] , [facility] 5 11:44:41 Restless legs syndrome 56609845 Active 2023 Fran Warner MD [address], [place], [address] , [facility] 5 11:44:13 Osteoarthr itis of bilateral hip joints 6853592916053 05 Active 2023 Fran Warner MD [address], [place], [address] , [employer] [facility] [employer] [facility] 5 11:44:19 Type 2 diabetes mellitus without complicati on 808719548 Active 2024 Fran Warner MD [address], [place], [address] , [facility] [employer] [facility] [employer] [facility] 5 11:44:04 Chronic sinusitis 47012760 Active 2024 Kriss Felipe RN [facility], [employer] [facility] [employer] [facility] 5 11:53:06 Notes:Medical History: Anxie ty/Depression Cataract COVID infection 10/2022 Rhinitis with postnasal drip Bruxism Obesity with very severe OSAHS, 12/28/17, AHI = 73, on CPAP c/o Provider Plus Hypothyroidism Hyperlipidemia Hypertension T2DM with microalbuminuria JEAN PIERRE Cirrhosis CKD Vit D deficiency Right DVT Cervical spondylosis Bilateral hip OA Procedure History: T&A 1946 Tubal ligation 1978 Left elbow/wrist surgery 1984 Cholecystectomy 1993 Right [...] CPT Code, subsequent completed Puneet King LPN [place] [employer] [facility] [employer] 08/12/2023 11:06:57 024 Colonoscopy completed RAMÓN Hsieh [employer] [facility] [employer] [facility] 08/18/2023 10:39:18 023 Ortho - Cortisone Injection completed Dima Ramos MD [address], [place], [address], [facility] [employer] [facility] [employer] [facility] 10/01/2022 15:08:00 021 Most Recent Bone Density completed Not Available [facility] 04/10/2022 03:14:36 020 Date of Last Colonoscopy completed Not Available [facility] 04/10/2022 03:14:36 013 Total knee arthroplasty completed Not Available [facility] 04/10/2022 03:14:37 013 Total knee arthroplasty completed Not Available [facility] 04/10/2022 03:14:37 Gastrointestinal Surgery completed Not Available [facility] 04/10/2022 03:14:37 other completed Not Available [facility] 04/10/2022 03:14:37 Gallbladder Surgery completed Not Available [facility] 04/10/2022 03:14:37 Tonsillectomy completed Not Available [facility] 04/10/2022 03:14:37 Knee Surgery completed Not Available [facility] 04/10/2022 03:14:37 Cataract Surgery completed Not Available [facility] 04/10/2022 03:14:37 Hernia Repair completed Not Available [facility] 04/10/2022 03:14:37 SPINDLE TESTER Surgery completed Not Available [facility] 04/10/2022 03:14:37 other completed Not Available [facility] 04/10/2022 03:14:37 Imaging Results None recorded. Procedure [...] Not Available Not Available No t Available cetirizin e 10 mg tablet TAKE 1 TABLET BY MOUTH EVERY DAY active Not Available Not Available No t Available azithromy seth 250 mg tablet TAKE 2 TABLETS (500 MG) BY ORAL ROUTE ONCE DAILY FOR 1 DAY THEN 1 TABLET (250 MG) BY ORAL ROUTE ONCE DAILY FOR 4 DAYS 10/04 completed Not Available Not Available Not Available [...] Available tramadol 50 mg tablet TAKE 1 TO 2 TABLETS BY MOUTH TWICE DAILY NEEDED FOR PAIN 11/25 completed Not Available Not Available Not Available [...] TAKE 1 TABLET BY MOUTH EVERY DAY 11/01 completed Not Available Not Available Not Available alprazola m 0.25 mg tablet Take [...] Not Available Not Available No t Available [employer] Ultra Test strips USE TO TEST ONCE DAILY AND NEEDED 03/13 completed Not Available Not Available Not Available Kenalog 10 mg/mL suspensio n for injection Take 20 mg by injectio n route. 12/02 completed [facility]: [phone] - Not Available Not Available Not [...] TAKE 1 TABLET BY MOUTH EVERY DAY 11/25 completed Not Available Not Available Not Available [...] TAKE 1 TABLET BY MOUTH TWICE DAILY 11/25 completed Not Available Not Available Not Available cephalexi n 500 mg tablet Take [...] 4 mg tablets in a dose pack FOLLOW PACKAGE DIRECTIO NS 10/04 completed Not Available Not Available Not Available [...] e 50 mcg/actua tion nasal spray,arsenio pension SHAKE LIQUID AND USE 2 SPRAYS IN EACH NOSTRIL DAILY [...] mg-potass ium clavulana te 125 mg tablet Take 1 tablet twice a day by oral route with meal(s) for 7 days. 10/21 completed Not Available Not Available Not Available AcipHex 20 mg tablet,de layed release active Not Available Not Available Not Available esomepraz ole magnesium 20 mg capsule,d elayed release 2019 active Not Available Not Available Not Avai lable olmesarta n 5 mg tablet Take 2 tablets every day by oral route. active Not [...] Not Available Not Available Not Available calcium active Not Available Not Avail able Not Available diclofena c sodium 03/31 completed Not Available Not Available Not Available Claritin qd 01/04 completed Not Available Not Available Not Available prednison e 08/02 completed Not Available Not Available Not Available Tylenol active NEEDED Not Available Not Available Not Available Vitamin D3 active Not Available Not Available Not Available multivita min active Not Available Not Available Not Available Baby Aspirin one tablet daily 07/06 completed Not Available Not Available Not Available lidocaine (PF) 10 mg/mL (1 %) injection solution In office injectio n administ ered by the provider 10/03 completed [facility]: [phone] 6- Not Available Not Available Not [...] SURGERY. STOP DICLOFEN AC WHILE ON XARELTO 11/25 completed Not Available Not Available Not Available ropivacai ne (PF) 5 mg/mL (0.5 %) injection solution Take 20 mg by injectio n route. 12/02 completed [facility] [id number] 4- Not Available Not Available Not Available Xarelto 15 mg tablet Take 1 tablet twice a day by oral route. 09/21 completed Not Available Not Available Not Available Xarelto 20 mg tablet 07/23 completed Not Available Not Available Not Available lotepredn ol etabonate 0.5 % eye gel drops INSTILL 1 DROP IN LEFT EYE TWICE DAILY 11/25 completed Not Available Not Available Not Available Fluzone High-Dose (PF) 180 mcg/0.5 mL intramusc ular syringe INJECT 0.5 ML INTRAMUS CULARLY DIRECTED . active Not Available Not Available No t Available tavaborol e 5 % topical solution with applicato r APPLY TO AFFECTED NAILS ONCE DAILY. 11/25 completed Not Available Not Available Not Available [...] UNDER THE SKIN ONE DAY A WEEK 10/04 completed Not Available Not Available Not Available Paxlovid 300 mg (150 mg x [...] TAKE 1 TABLET BY MOUTH TWICE DAILY 10/04 completed Not Available Not Available Not Available Vitals Date Recorded Body height Body mass index (BMI) Body weight Body temperature Heart rate Systolic And Diastolic Provider Name and Address Organization Details Last Updated DateTime 165.1 cm 33.9 kg/m2 19936.8 4 g 97.4 [degF] 100 /min 118/60 mm[Hg] Kristi Flower Zeeshan [facility] [employer] [facility] HEALTH 5 10:42:45 Date Recorded Body height Body mass index (BMI) Body weight Body temperature Respiratory rate Heart rate Oxygen saturation Oxygen saturation in Arterial blood by Pulse oximetry Systolic And Diastolic Provider Name and Address Organization Details Last Updated DateTime 165.1 cm 33.9 kg/m2 77377.8 4 g 97.8 [degF] 18 /min 88 /min 98 % 98 % 130/80 mm[Hg] Lana Campuzano [facility] [employer] 12:56:07 Date Recorded Body height Body mass index (BMI) Body weight Body temperature Heart rate Systolic And Diastolic Provider Name and Address Organization Details Last Updated DateTime 165.1 cm 33.6 kg/m2 47885.6 6 g 97.7 [degF] 84 /min 122/60 mm[Hg] Kristi Flower [facility] [employer] [facility] 11:10:13 Date Recorded Heart rate Respiratory rate Provider N nhaid and Address Organization Details Last Updated DateTime 11/01/2024 74 /min 15 /min Fran Warner MD [address] [place] [address], [phone], [facility] [employer] 11/01/2024 14:33:16 Date Recorded Body height Body mass index (BMI) Body weight Body temperature Heart rate Oxygen saturation Oxygen saturation in Arterial blood by Pulse oximetry Systolic And Diastolic Provider Name and Address Organization Details Last Updated DateTime 165.1 cm 34.1 kg/m2 05307.4 4 g 98 [degF] 74 /min 96 % 96 % 122/68 mm[Hg] Lana Sanchez MA [facility] [employer] 14:12:07 Date Recorded Body height Body mass index (BMI) Body weight Provider Name and Address Organization Details Last Updated DateTime 11/25/2024 165.1 cm 34.5 kg/m2 69274.34 g Fadia Saregnt [facility] [employer] [facility] 11/25/2024 11:40:48 Social History Question Answer Notes LastModified by Organization Details LastModified Time Tobacco Smoking Status Former Smoker Not Available [employer] 04/10/2022 03:13:55 Do You Have An Advance Directive? Yes Asked To Bring Copy For Chart MIGRATION.0301 [id number] Information not available 04/10/2022 Do You Wear A Helmet When Biking? No Does Not Bike MIGRATION.030 [id number] Information not available 04/10/2022 Are You Blind Or Do You Have Difficulty Seeing? No MIGRATION.0301 350453 Information not available 04/10/2022 Is Blood Transfusion Acceptable In An Emergency? Yes [email or web address] Information not available 08/18/2023 What Is Your Level Of Caffeine Consumption? Occasional MIGRATION.0301 [id number] Information not available 04/10/2022 How Much Tobacco Do You Chew? None MIGRATION.0301 566182 Information not available 04/10/2022 In The 14 Days Before Symptom Onset, Have You Had Close Contact With A Laboratory-confi rmed COVID-19 While That Case Was Ill? No MIGRATION.030 195946 Information not available 04/10/2022 In The 14 Days Before Symptom Onset, Have You Had Close Contact With A Person Who Is Under Investigation For COVID-19 While That Person Was Ill? No MIGRATION.0301 [id number] Information not available 04/10/2022 Are You Deaf Or Do You Have Serious Difficulty Hearing? No MIGRATION.0301 477512 Information not available 04/10/2022 What Type Of Diet Are You Following? REGULAR MIGRATION.0301 060288 Information not available 04/10/2022 Which Illicit Or Recreational Drugs Have You Used? None MIGRATION.030 926278 Information not available 04/10/2022 What Is The Highest Grade Or Level Of School You Have Completed Or The Highest Degree You Have Received? [id number] MIGRATION.030 922620 Information not available 04/10/2022 Do You Have An Electrostatic Air Filter? No Information not available 03/13/2023 How Many Days Of Moderate To Strenuous Exercise, Like A Brisk Walk, Did You Do In The Last 7 Days? 0 [email or web address] Information not available 08/18/2023 Have There Been Any Changes To Your Family Or Social Situation? No [email or web address] Information not available 08/18/2023 What Is The Fluoride Status Of Your Home? Fluoridated MIGRATION.0301 857865 Information not available 04/10/2022 When Did You Quit Smoking? 14+yearssincelastci trinaette MIGRATION.0301 885297 Information not available 04/10/2022 Are There Any Guns Present In Your Home? Yes MIGRATION.0301 169980 Information not available 04/10/2022 Do You Have A Humidifier? No Information not available 03/13/2023 Do You Use Insect Repellent Routinely? No MIGRATION.0301 623357 Information not available 04/10/2022 Where Do You Live? SingleLevelHouse MIGRATION.0301 [id number] Information not available 04/10/2022 Presence Of Domestic Violence No [email or web address] Information not available 08/18/2023 Guns Present In The Home? Yes [email or web address] Information not available 08/18/2023 Are You Able To Care For Yourself? Yes [email or web address] Information not available 08/18/2023 Are You Blind Or Do Yo Have Difficulty Seeing? No [email or web address] Information not available 08/18/2023 Are You Deaf Or Do You Have Serious Difficulty Hearing? No [email or web address] Information not available 08/18/2023 General Stress Level? Moderate [email or web address] Information not available 08/18/2023 Live Alone Of With Others? With Others [email or web address] Information not available 08/18/2023 Do You Have A Medical Power Of Color Buffer? Yes MIGRATION.0301 [id number] Information not available 04/10/2022 Do You Have Moisture Problems In Your Home? No Information not available 03/13/2023 What Was The Date Of Your Most Recent Tobacco Screening? 11/01/2024 [email or web address] Information not available 11/01/2024 Do You Have Any Pets? No MIGRATION.0301 904793 Information not available 04/10/2022 What Is Your Relationship Status? MIGRATION.0301 688861 Information not available 04/10/2022 Do You Use Your Seat Belt Or Car Seat Routinely? Yes MIGRATION.0301 360501 Information not available 04/10/2022 Do You Have Smoke And Carbon Monoxide Detectors In Your Home? Yes MIGRATION.0301 219898 Information not available 04/10/2022 Are You Passively Exposed To Smoke? No MIGRATION.0301 926638 Information not available 04/10/2022 Are There Any Smokers In Your House? No MIGRATION.0301 299523 Information not available 04/10/2022 How Much Tobacco Do You Smoke? No MIGRATION.0301 636695 Information not available 04/10/2022 What Types Of Sporting Activities Do You Participate In? None MIGRATION.0301 427014 Information not available 04/10/2022 Do You Use Sunscreen Routinely? No MIGRATION.0301 522185 Information not available 04/10/2022 Has Tobacco Cessation Counseling Been Provided? No MIGRATION.0301 104573 Information not available 04/10/2022 Have You Recently Traveled Abroad? No MIGRATION.0301 996101 Information not available 04/10/2022 Do You Have Difficulty Walking Or Climbing Stairs? No MIGRATION.0301 963145 Information not available 04/10/2022 Do You Have Any Dietary Restrictions? No MIGRATION.0301 318088 Information not available 04/10/2022 Sex: Female Functional Status Question Answer Note LastModified by Organizat ion Details LastModified Time Do you or have you ever used smokeless tobacco? Never used smokeless tobacco MIGRATION.75780 08491 Information not available 04/10/2022 Are you currently employed? No Information not available 03/13/2023 Have you been exposed to chemicals or toxins? Not that aware of Information not available 03/13/2023 Do you have transportation difficulties? No MIGRATION.47726 47666 Information not available 04/10/2022 Are you able to care for yourself independently? Yes MIGRATION.65333 07866 Information not available 04/10/2022 Do you have difficulty dressing, bathing, grooming, or toileting? No MIGRATION.22411 76909 Information not available 04/10/2022 Do you or have you ever used e-cigarettes or vape? Never used electronic cigarettes MIGRATION.58046 61306 Information not available 04/10/2022 What is your exercise level? None MIGRATION.59831 13429 Information not available 04/10/2022 Do you use any illicit or recreational drugs? No MIGRATION.43627 26602 Information not available 04/10/2022 Do you or have you ever used any other forms of tobacco or nicotine? No MIGRATION.49682 21800 Information not available 04/10/2022 What is your level of alcohol consumption? None MIGRATION.62355 26567 Information not available 04/10/2022 Are you able to walk independently without assistance or assistive devices? YESWOREST MIGRATION.10445 67073 Information not available 04/10/2022 Do you have difficulty doing errands alone? No MIGRATION.64911 84086 Information not available 04/10/2022 What is your occupation? retired MIGRATION.16919 14288 Information not available 04/10/2022 Mental Status Question Answer Note LastModified by Organizat ion Details LastModified Time Do you feel stressed (tense, restless, nervous, or anxious, or unable to sleep at night)? [id number] [email or web address] Information not available 08/18/2023 Do you have difficulty concentrating, remembering or making decisions? No MIGRATION.28660813 26 Information not available 04/10/2022 Family History Relationship Description Onset Age of this Age Resolved Age Notes LastModified by Organization Details LastModified Time Father Diabetes mellitus MIGRATION.978 [id number] Not available 04/10/2022 03:14:45 Father Family history of stroke [email or web address] Not available 2022 10:29:30 Father Heart disease [email or web address] Not available 2023 12:48:45 Father Hypertensive disorder [email or web address] Not available 2023 12:48:54 Father Deep venous thrombosis [email or web address] Not available 03/13 12:49:36 Maternal Grandmother Malignant neoplasm of breast [email or web address] Not available 2022 10:29:30 [...] N CHEMOTHERAPY / RADIATION N LIVER DISEASE Y MALE HYPOGONADISM N HYPERTENSION Y Deficiency Y [...] LIVER DISEASE Y GOUT N SLEEP DISORDER Y ALZHEIMER'S DISEASE N Brain Problems N HERPES [...] high-dose, quadrivalent, PF 0 completed RAMÓN Hsieh, [facility] [employer] [facility] 08/13/2023 11:55:32 COVID-19, mRNA, LNP-S, PF, 30 mcg/0.3 mL dose 2 completed RAMÓN Hsieh null, [facility] [employer] [facility] 08/13/2023 11:55:32 COVID-19, mRNA, LNP-S, PF, 30 mcg/0.3 mL dose 1 completed RAMÓN Hsieh, [facility] 08/13/2023 11:55:32 COVID-19, mRNA, LNP-S, PF, 30 mcg/0.3 mL dose 1 completed Kristi Flower RMA null, [facility] 08/13/2023 11:55:32 COVID-19, mRNA, LNP-S, PF, 30 mcg/0.3 mL dose, mj-sucrose 2 completed Kristi Flower RMA null, [facility] 08/13/2023 11:55:32 Influenza, high-dose, trivalent, PF 5 completed Kristi Flower RMA null, [facility] 08/13/2023 11:55:32 Influenza, high-dose, trivalent, PF 7 completed Kristi Flower RMA null, [facility] 08/13/2023 11:55:32 Influenza, high-dose, trivalent, PF 6 completed Kristi Flower RMA null, [facility] 08/13/2023 11:55:33 Influenza, adjuvanted, trivalent, PF 4 completed Kristi Flower RMA null, [facility] 08/02/2024 10:37:38 zoster recombinant 4 completed [facility] 10:37:38 zoster recombinant 4 completed Kristi Flower RMA null, [facility] 08/02/2024 10:37:38 Pneumococcal conjugate PCV20, polysaccharide TAM120 conjugate, adjuvant, PF 3 completed RACHELLE HsiehA null, [facility] 08/02/2024 10:37:38 RSV, recombinant, protein subunit RSVpreF, adjuvant reconstituted, 0.5 mL, PF 3 completed Kristi Flower RMA null, [facility] 08/02/2024 10:37:38 COVID-19, mRNA, LNP-S, PF, 50 mcg/0.5 mL 4 completed Kristi Flower, RMA null, [facility] 08/02/2024 10:37:38 COVID-19, mRNA, LNP-S, PF, 50 mcg/0.5 mL 4 completed Kristi Flower RMA null, [facility] 08/02/2024 10:37:38 SARS-COV-2 (COVID-19) vaccine, UNSPECIFIED 1 completed Kristi Flower, RMA null, [facility] 08/13/2023 11:55:32 SARS-COV-2 (COVID-19) vaccine, UNSPECIFIED 1 completed Kristi Flower RMA null, [facility] 08/13/2023 11:55:32 Influenza, high-dose, trivalent, PF 9 completed Kristi Flower, RMA null, [facility] 08/13/2023 11:55:33 Influenza, high-dose, trivalent, PF 7 completed Kristi Flower, RMA null, [facility] 08/13/2023 11:55:32 Influenza, high-dose, trivalent, PF 6 completed Kristi Flower, RMA null, [facility] 08/13/2023 11:55:33 Influenza, high-dose, trivalent, PF 5 completed Kristi Mundo, RMA null, [facility] 08/13/2023 11:55:32 Tdap 0 completed Kristi Flower, RMA null, [facility] 08/13/2023 11:55:32 Influenza, high-dose, trivalent, PF 0 completed Kristi Flower RMA null, [facility] 08/13/2023 11:55:33 Influenza, high-dose, trivalent, PF 4 completed Kristi Flower RAMÓN null, [facility] [employer] [facility] 08/13/2023 11:55:32 Influenza, high-dose, trivalent, PF 3 completed Kristi Mundo, RMZeeshan null, [facility] [employer] [facility] 08/13/2023 11:55:32 Influenza, high-dose, quadrivalent, PF 2 completed Not Available [facility] 07/29/2022 09:34:24 Influenza, high-dose, quadrivalent, PF 1 completed Not Available [facility] 07/29/2022 09:34:24 pneumococcal polysaccharide PPV23 9 completed Not Available [facility] 07/29/2022 09:34:24 Influenza, high-dose, trivalent, PF 8 completed Not Available [facility] 07/29/2022 09:34:24 Pneumococcal conjugate PCV 13 8 completed Not Available [facility] 07/29/2022 09:34:24 Influenza, high-dose, quadrivalent, PF 3 completed Aditya Joyce MD [address] [place] [address], [phone], [facility] [employer] [facility] 12/02/2022 17:56:33 Past Encounters Encounter ID Performer Location Encounter Start Date Encounter Closed Date Diagnosis/Indication Diagnosis SNOMED-CT Code Diagnosis ICD10 Code Diagnosis IMO Codes Diagnosis Note [id number] Aditya lancaster MD [facility] [place] jacinto [address] [place] [address] [place] [place] [address] 06/19/2020 00:00:00 06/19/2020 14:22:26 [id number] Aditya lancaster MD [facility] [place] [address] [place] [address] [place] [address] 06/21/2020 00:00:00 06/21/2020 13:25:17 [id number] [facility] ic[facility] [place] [address] [place] [address] 08/01/2020 00:00:00 08/01/2020 12:57:26 [id number] Dima Ramos MD [facility] [place] [address] [place] [address] 08/29/2020 00:00:00 08/29/2020 16:03:30 [id number] Aditya lancaster MD [facility] [place] [address] [place] [address] 10/23/2020 00:00:00 10/23/2020 14:29:56 [id number] S_Histor ic[facility]Gate[facility] [place] [address] [place] [address] 11/02/2020 00:00:00 11/02/2020 17:24:59 [id number] Aditya lancaster MD [facility] Internal Med [address] [place] [address] 04/02/2021 00:00:00 04/02/2021 11:59:31 [id number] Dima Ramos MD [facility] [place] [address] [place] [address] 05/22/2021 00:00:00 05/22/2021 15:53:36 [id number] Dima Ramos MD [facility] [place] [address] [place] [address] 06/19/2021 00:00:00 06/19/2021 15:10:11 [id number] Aditya lancaster MD [facility] [address] [place] [address] 07/25/2021 00:00:00 07/25/2021 16:57:22 [id number] [place] He, [facility] [place] [facility] [place] [address] [place] [address] 08/21/2021 00:00:00 08/21/2021 14:35:56 [id number] Dima Ramos MD [facility] [place] [address] [place] [address] 09/17/2021 00:00:00 09/17/2021 10:29:45 [id number] S[facility] [place] [address] [place] [address] 11/01/2021 00:00:00 11/04/2021 16:36:10 [id number] Aditya lancaster MD [facility] Internal Med [place] [address] [place] [address] 11/26/2021 00:00:00 11/26/2021 12:56:05 [id number] Aditya lancaster MD [facility] Internal Med [address] [place] [address] 12/05/2021 00:00:00 12/05/2021 12:08:16 [id number] Aditya lancaster MD [facility] Internal [facility] [address] [place] [address] 03/27/2022 00:00:00 03/27/2022 17:14:53 [id number] Aditya lancaster MD [facility] Internal Med [address] [place] [address] 07/29/2022 11:49:50 07/29/2022 12:58:47 Type 2 diabetes mellitus without complication 671980077 E11.9 On metformin ER 500mg bidOn ozempic, does well denies any MCT, MEN2 or pancreatic issuesGet labs Does well Needs to see her eye Does see Dr Long on 11/02/2020 Screening - NAD 91549138 3 Z13.9 C-scope: 02/22/2014 : Dr Da [...] his understand ing of the above Hyperlipidemia 36531239 E78.5 On rosuvastat in 20mg daily Get labs Hypothyroidism 10206229 E03.9 On levothyrox ine 200mcgs dailyDoes wellRepeat the labs Restless l egs syndrome 72369932 G25.81 Not on requip now On tizanidine 4mg dailyDoes well Gastroesop hageal reflux disease without esophagitis 944806749 K21.9 S/p EGDOn nexium, take as needed only Does well Sinus tachycardia 039890 01 R00.0 s/p Stress test 08/24/2020 : NegS/p ECHO 08/24/2020 On metoprolol ER 25mg dailyOn lisinopril 10mg dailyDoes well Sees [facility] Dr Auguste last OV 09/19/2021 Thrombocyt openic disorder 963042192 D69.[address] Heart Last OV 03/13/2021 , f/u yearly Obstructiv e sleep apnea syndrome 07964416 G47.33 S/p sleep study 12/28/17Is using the CPAP and is very compliant 04/13/2019 : CT Chest: Deysi Butler, no acute intrathora cic process, thyrodi calcificat ions, F/u USOld granulomat os disease Keep apt with [place] 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 Environmental allergy 42 8477297 T78.49XD On proairOn singulair Does well Forgetful 04106030 R41.3 Get labsS/p MRI brain 06/26/2020 May need to see neurology Pain of bi lateral knee joints 4270932676 62535 M25.561 M25.562 S/p jeff TKRsDr Richard 09/17/2021 Cirrhosis of liver 73631 007 K74.60 US Liver 06/26/2020 US liver 07/26/2021 : Nodular margins, cirrhosisG et an apt with GI hepatology Dr Roberts also, has seen Anastasia Francisco in 01/2021 US liver 03/13/2022 , see case Moderate r ecurrent major depression 12422053 F33.1 On venlafaxin e ER 75mgs dailyDoes wellNot suicidal or homicidalD eclines any referral to psychiatry Can renew when needed Essential hypertension 64708547 I10 On lisinopril 5mg will cut this in half 07/29/2022 , as she feels the BP is low, bring BP logs in 2 weeksOn metoprolol ER 25mg daily, may need to adjust this [id number] [employer], [employer] [facility] [place] [address] [place] [address] 09/11/2022 12:18:43 09/11/2022 14:57:32 Obstructive sleep apnea syndrome 08951484 G47.33 Split night study 12/28/17 with AHI [...] at least 4 hours prior to bedtime. [id number] Dima Ramos MD [facility] [place] [address] [place] [address] 09/17/2022 14:48:10 09/17/2022 15:42:57 Pain of bilateral knee joints 6724011216 42949 M25.561 M25.562 History of bilateral total knee replacement 2665820846 886227 Z96.653 [id number] Dima Ramos MD [facility] [place] [address] [place] [address] 10/01/2022 14:48:35 10/01/2022 15:20:37 Pain of right shoulder joint 2555995932 7620861 M25.511 Osteoarthr 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 8986282663 25710 M19.669 [id number] Jewel loera MD [facility] General Surgery [address] [facility], [address] [place] [address] 11/05/2022 10:25:40 11/05/2022 11:59:15 [facility] 27267915 R59.1 [id number] Aditya lancaster MD [facility] Internal Med [place] jacinto [address] [facility] y , [place] [address] 12/02/2022 11:55:51 12/02/2022 12:52:29 Screening - NAD 330375441 Z13.9 C-scope: 02/22/2014 : Dr Da Silva [...] Type 2 ofe betes mellitus without complication 502132478 E11.9 On metformin ER 500mg bidOn ozempic, does well denies any MCT, MEN2 or pancreatic issuesGet labs Does well Needs to see her eye MD Does see Dr Long on 11/02/2020 Hyperlipidemia 38388238 E78.5 On rosuvastat in 20mg daily Get labs Hypothyroidism 91091760 E03.9 On levothyrox ine 200mcgs daily,will decrease to 150mcgs dailyDoes wellRepeat the labs Restless l egs syndrome 36590763 G25.81 Not on requip now On tizanidine 4mg dailyDoes well Gastroesop hageal reflux disease without esophagitis 641775940 K21.9 S/p EGDOn nexium, take as needed only Does well Sinus tachycardia 136125 01 R00.0 s/p Stress test 08/24/2020 : NegS/p ECHO 08/24/2020 On metoprolol ER 25mg dailyOn lisinopril 5mg dailyDoes well Sees [facility] Dr Auguste last OV 09/19/2021 Thrombocyt openic disorder 419956226 D69.[address] Heart Last OV 03/13/2021 , f/u yearlyLast OV 03/19/2022 , f/u yearly Obstructiv e sleep apnea syndrome 10027273 G47.33 S/p sleep study 12/28/17Is using the CPAP and is very compliant 04/13/2019 : CT Chest: Deysi Butler, no acute intrathora cic process, thyrodi calcificat ions, F/u USOld granulomat os disease Keep apt with [place] 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 [place] 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 09/11/2022 , next 04/22/2023 Environmental allergy 42 6952177 T78.49XD On proairOn singulair Does well Forgetful 01992552 R41.3 Get labs S/p MRI brain 06/26/2020 May need to see neurology Pain of bi lateral knee joints 8451183671 81411 M25.561 M25.562 S/p jeff TKRs Dr Ramos 09/17/2021 Cirrhosis of liver 33325 007 K74.60 US Liver 06/26/2020 US liver 07/26/2021 : Nodular margins, cirrhosisG et an apt with GI hepatology Dr Roberts also, has seen Anastasia Francisco in 01/2021 US liver 03/13/2022 , see case Moderate r ecurrent major depression 58569886 F33.1 On venlafaxin e ER 75mgs dailyDoes wellNot suicidal or homicidalD eclines any referral to psychiatry Can renew when needed Essential hypertension 90463700 I10 On lisinopril 5mgOn metoprolol ER 25mg daily, may need to adjust this COVID-19 962500283 U07.1 +ve 10/29/2022 , see case 10/29/2022 Pain of ri ght shoulder joint 7977115178 4474597 M25.511 Dr Ramos 10/01/2022 , s/p kenalog Chronic ki dney disease 800480274 N18.[address] Banks IJ Chronic neck pain 289431 7493 107 M54.2 Get Xray C-spineIf not better, get PT and may need to see [facility] Administra tion of influenza vaccine 68866725 Z23 [id number] Fran Warner MD [facility] Pul[facility] [address], [facility] [address] [place] [address] 03/13/2023 11:59:32 03/14/2023 15:38:10 Obstructive sleep apnea syndrome 52056892 G47.33 [id number] Aditya lancaster MD [facility] Internal Med [place] [address] , [facility] [place] [address] 03/31/2023 11:47:38 03/31/2023 12:49:59 Screening - NAD 541578266 Z13.9 C-scope: 02/22/2014 : Dr Da Silva Mammogram: 01/13/17: Neg, 01/14/18: Neg 9: Neg 021: Neg 022: Neg01/24/2 023: BiRads 3: Neg 024: Neg DEXA: [...] Type 2 ofe betes mellitus without complication 721580462 E11.9 On metformin ER 500mg bidOn ozempic, does well denies any MCT, MEN2 or pancreatic issuesGet labs Does well Needs to see her eye MD Does see Dr Long on 11/02/2020 Hyperlipidemia 82584851 E78.5 On rosuvastat in 20mg daily Get labs Hypothyroidism 48669577 E03.9 On levothyrox ine 100mcgs dailyDoes wellRepeat the labsGet US thyroid Restless l egs syndrome 76296759 G25.81 Not on requip now On tizanidine 4mg dailyDoes well Gastroesop hageal reflux disease without esophagitis 529247543 K21.9 S/p EGDOn nexium, take as needed only Does well Sinus tachycardia 549070 01 R00.0 s/p Stress test 08/24/2020 : NegS/p ECHO 08/24/2020 On metoprolol ER 25mg dailyOn lisinopril 5mg dailyDoes well Sees [facility] Dr Auguste last OV 09/19/2021 Thrombocyt openic disorder 580125523 D69.[address] Heart Last OV 03/13/2021 , f/u yearlyLast OV 03/19/2022 , f/u yearly Obstructiv e sleep apnea syndrome [id number] G47.33 S/p sleep study 12/28/17Is using the CPAP and is very compliant 04/13/2019 : CT Chest: Deysi Butler, no acute intrathora cic process, thyrodi calcificat ions, F/u USOld granulomat os disease Keep apt with [employer] 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 [employer] 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 09/11/2022 , next 04/22/2023 Environmental allergy 42 1059862 T78.49XD On proairOn singulair Does well Forgetful 31800006 R41.3 Get labs S/p MRI brain 06/26/2020 May need to see neurology Pain of bi lateral knee joints 2160464577 21588 M25.561 M25.562 S/p jeff TKRs Dr Ramos 09/17/2021 Cirrhosis of liver 26021 007 K74.60 US Liver 06/26/2020 US liver 07/26/2021 : Nodular margins, cirrhosisG et an apt with GI hepatology Dr Roberts also, has seen Anastasia Francisco in 01/2021 Anastasia Francisco 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 02/13/2023 , f/u in 6 monthsUS liver 03/13/2022 , see case Moderate r ecurrent major depression 90650743 F33.1 On venlafaxin e ER 75mgs dailyDoes wellNot suicidal or homicidalD eclines any referral to psychiatry Can renew when needed Essential hypertension 58708475 I10 On lisinopril 5mgOn metoprolol ER 25mg daily, may need to adjust this COVID-19 756981103 U07.1 +ve 10/29/2022 , see case 10/29/2022 Pain of ri ght shoulder joint 5231650448 8963510 M25.511 Dr Ramos 10/01/2022 , s/p kenalog Chronic ki dney disease 036561070 N18.[address] Banks IJ Chronic neck pain 542229 2465 107 M54.2 Get Xray C-spineIf not better, get PT and may need to see IPC Xray C-spine 12/02/2022 Screening for malignant neoplasm of colon 102405512 Z12.11 Pruritic rash 55334459 L 28.2 In the groin area, red and itchy, not examined today, no rash at present, would like a refill of nystatin-t riamcinolo ne [id number] Fran Warner MD [facility] [address], [place] [address] 06/12/2023 12:02:56 06/13/2023 09:12:13 Obstructive sleep apnea syndrome 54535336 G47.33 [id number] Aditya lancaster MD [facility] Internal Med [facility] [address] [place] [address] 06/25/2023 15:20:32 06/25/2023 16:19:01 Screening - NAD 992634007 Z13.9 C-scope: 02/22/2014 : Dr Da Silva [...] Type 2 ofe betes mellitus without complication 852099424 E11.9 On metformin ER 500mg bidOn ozempic, does well denies any MCT, MEN2 or pancreatic issuesGet labs Does well Needs to see her eye Does see Dr Long on 11/02/2020 Hyperlipidemia 17459683 E78.5 On rosuvastat in 20mg daily Get labs Hypothyroidism 21058970 E03.9 On levothyrox ine 100mcgs dailyDoes wellRepeat the labsGet US thyroid Restless l egs syndrome 10958707 G25.81 Not on requip now On tizanidine 4mg dailyDoes well Gastroesop hageal reflux disease without esophagitis 978689605 K21.9 S/p EGDOn nexium, take as needed only Does well Sinus tachycardia 107978 01 R00.0 s/p Stress test 08/24/2020 : NegS/p ECHO 08/24/2020 On metoprolol ER 25mg dailyOn lisinopril 5mg dailyDoes well Sees [facility] Dr Auguste last OV 09/19/2021 Thrombocyt openic disorder 149465458 D69.[address] Heart Last OV 03/13/2021 , f/u yearlyLast OV 03/19/2022 , f/u yearly Obstructiv e sleep apnea syndrome 17504082 G47.33 S/p sleep study 12/28/17Is using the CPAP and is very compliant 04/13/2019 : CT Chest: Deysi Butler, no acute intrathora cic process, thyrodi calcificat ions, F/u USOld granulomat os disease Keep apt with [employer] 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 [employer] 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 09/11/2022 , next 04/22/2023 Environmental allergy 42 6290054 T78.49XD On proairOn singulair Does well Forgetful 11457025 R41.3 Get labs S/p MRI brain 06/26/2020 May need to see neurology Pain of bi lateral knee joints 1186462498 18957 M25.561 M25.562 S/p jeff TKRs Dr Ramos 09/17/2021 Cirrhosis of liver 61996 007 K74.60 US Liver 06/26/2020 US liver 07/26/2021 : Nodular margins, cirrhosisG et an apt with GI hepatology Dr Roberts also, has seen Anastasia Francisco in 01/2021 Anastasia Francisco 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 02/13/2023 , f/u in 6 monthsUS liver 03/13/2022 , see case Moderate r ecurrent major depression 71379534 F33.1 On venlafaxin e ER 75mgs dailyDoes wellNot suicidal or homicidalD eclines any referral to psychiatry Can renew when needed Essential hypertension 91434054 I10 On lisinopril 5mgOn metoprolol ER 25mg daily, may need to adjust this COVID-19 935141319 U07.1 +ve 10/29/2022 , see case 10/29/2022 Pain of ri ght shoulder joint 6487620799 6026061 M25.511 Dr Ramos 10/01/2022 , s/p kenalog Chronic ki dney disease 978683404 N18.[address] Banks IJ Chronic neck pain 234087 9536 107 M54.2 Get Xray C-spineIf not better, get PT and may need to see IPC Xray C-spine 12/02/2022 Screening for malignant neoplasm of colon 216181712 Z12.11 Pruritic rash 28445405 L 28.2 In the groin area, red and itchy, not examined today, no rash at present, would like a refill of nystatin-t riamcinolo ne Low back pain 744310822 M54.50 Xrays noted 06/24/2023 Already on the diclofenac given by Kobe Madrigal on flexerillN eeds another apt with ortho Osteoarthr itis of bilateral hip joints 9899132916 63514 M16.0 Has seen Kobe Madrigal another referral [id number] Aditya lancaster MD [facility] Internal [facility] Tommy jacinto [address] [facility] , [facility] [place] [address] 08/18/2023 10:28:33 08/18/2023 11:26:37 Adult health examination 038399982 Z00.00 Screening for disorder 292860253 Z13.9 Screening - NAD 59092239 3 Z13.9 C-scope: 02/22/2014 : Dr Da [...] Type 2 ofe betes mellitus without complication 872393573 E11.9 Not taking metformin ER 500mg bidOn ozempic, does well denies any MCT, MEN2 or pancreatic issuesGet labs Does wellNeeds to see her eye MD Does see Dr Long on 11/02/2020 Does not want heraclio Mast ill refer toDr Angeles Hyperlipidemia 28500584 E78.5 On rosuvastat in 20mg dailyGet labs Hypothyroidism 29845348 E03.9 On levothyrox ine 100mcgs dailyDoes wellRepeat the labsGet US thyroid Restless l egs syndrome 03514906 G25.81 Not on requip now On tizanidine 4mg dailyDoes well Gastroesop hageal reflux disease without esophagitis 942872851 K21.9 S/p EGDOn nexium, take as needed only Does well Sinus tachycardia 737653 01 R00.0 s/p Stress test 08/24/2020 : NegS/p ECHO 08/24/2020 On metoprolol ER 25mg dailyOn lisinopril 5mg dailyDoes well Sees [facility] Dr Auguste last OV 09/19/2021 Thrombocyt openic disorder 206835086 D69.[address] Heart Last OV 03/13/2021 , f/u yearlyLast OV 03/19/2022 , f/u yearly Obstructiv e sleep apnea syndrome 49353504 G47.33 S/p sleep study 12/28/17Is using the CPAP and is very compliant 04/13/2019 : CT Chest: Deysi Butler, no acute intrathora cic process, thyrodi calcificat ions, F/u USOld granulomat os disease Keep apt with [employer] 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 [place] 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 09/11/2022 Dr Warner last 06/12/2023 , next 202 4 Environmental allergy 42 1980505 T78.49XD On proairOn singulair Does well Forgetful 23577363 R41.3 Get labs S/p MRI brain 06/26/2020 May need to see neurology Pain of bi lateral knee joints 7141418648 61219 M25.561 M25.562 S/p jeff TKRs Dr Ramos 09/17/2021 Cirrhosis of liver 38833 007 K74.60 US Liver 06/26/2020 US liver 07/26/2021 : Nodular margins, cirrhosisG et an apt with GI hepatology Dr Roberts also, has seen Anastasia Francisco in 01/2021 Anastasia Gandhi 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 02/13/2023 , f/u in 6 monthsUS liver 03/13/2022 , see case Moderate r ecurrent major depression 70590541 F33.1 On venlafaxin e ER 75mgs dailyDoes wellNot suicidal or homicidalD eclines any referral to psychiatry Can renew when needed Essential hypertension 08904509 I10 On lisinopril 5mgOn metoprolol ER 25mg daily, may need to adjust this COVID-19 794849395 U07.1 +ve 10/29/2022 , see case 10/29/2022 Pain of ri ght shoulder joint 6955300541 7841846 M25.511 Dr Ramos 10/01/2022 , s/p kenalog Chronic ki dney disease 022957779 N18.[address] Banks IJ Chronic neck pain 688979 8717 107 M54.2 Get Xray C-spineIf not better, get PT and may need to see IPC Xray C-spine 12/02/2022 Screening for malignant neoplasm of colon 851821180 Z12.11 Pruritic rash 57004414 L 28.2 In the groin area, red and itchy, not examined today, no rash at present, would like a refill of nystatin-t riamcinolo ne Low back pain 029107988 M54.50 Xrays noted 06/24/2023 Already on the diclofenac given by Kobe Madrigal on flexerillN eeds another apt with ortho Osteoarthr itis of bilateral hip joints 2551849536 37098 M16.0 Has seen Kobe Madrigal another referral Screening for osteoporosis 182010477 Z13.820 Vitamin D deficiency 347 53114 E55.9 [id number] Aditya lancaster MD [facility] Internal [facility] Tommy jacinto [address] [facility] [place] [address] 11/24/2023 14:36:02 11/24/2023 15:26:53 Screening - NAD 356902460 Z13.9 C-scope: 02/22/2014 : Dr Da SilvaC-sco [...] Type 2 ofe betes mellitus without complication 419864552 E11.9 Not taking metformin ER 500mg bidOn ozempic, does well denies any MCT, MEN2 or pancreatic issues, will increase that ozempic to 1mg weeklyGet labs Does wellNeeds to see her eye MD Does see Dr Long on 11/02/2020 Does not want heraclio Mast ill refer to Dr Angeles Hyperlipidemia 31056115 E78.5 On rosuvastat in 20mg dailyGet labs Hypothyroidism 05664124 E03.9 On levothyrox ine 100mcgs dailyDoes wellRepeat the labsGet US thyroid Restless l egs syndrome 60037894 G25.81 Not on requip now On tizanidine 4mg dailyDoes well Gastroesop hageal reflux disease without esophagitis 538152320 K21.9 S/p EGDOn nexium, take as needed only Does well Sinus tachycardia 797479 01 R00.0 s/p Stress test 08/24/2020 : NegS/p ECHO 08/24/2020 On metoprolol ER 25mg dailyOn lisinopril 5mg dailyDoes well Sees [facility] Dr Auguste last OV 09/19/2021 Thrombocyt openic disorder 609898627 D69.[address] Heart Last OV 03/13/2021 , f/u yearlyLast OV 03/19/2022 , f/u yearlyOV 04/23/2023 : F/u yearly Obstructiv e sleep apnea syndrome 85718066 G47.33 S/p sleep study 12/28/17Is using the CPAP and is very compliant 04/13/2019 : CT Chest: Deysi Butler, no acute intrathora cic process, thyrodi calcificat ions, F/u USOld granulomat os disease Keep apt with [employer] 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 [place] 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 09/11/2022 Dr Warner last 06/12/2023 , next 12/25/2023 Environmental allergy 42 6412841 T78.49XD On proairOn singulair Does well Forgetful 09823591 R41.3 Get labsS/p MRI brain 06/26/2020 May need to see neurology Pain of bi lateral knee joints 0318824294 78571 M25.561 M25.562 S/p jeff TKRs Dr Ramos 09/17/2021 Cirrhosis of liver 22485 007 K74.60 US Liver 06/26/2020 US liver 07/26/2021 : Nodular margins, cirrhosisG et an apt with GI hepatology Dr Roberts also, has seen Anastasia Francisco in 01/2021 Anastasia Gandhi 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 02/13/2023 , f/u in 6 monthsUS liver 03/13/2022 , see case Moderate r ecurrent major depression 34707443 F33.1 On venlafaxin e ER 75mgs dailyDoes wellNot suicidal or homicidalD eclines any referral to psychiatry Can renew when needed Essential hypertension 18154874 I10 On lisinopril 5mgOn metoprolol ER 25mg daily, may need to adjust this COVID-19 620643346 U07.1 +ve 10/29/2022 , see case 10/29/2022 Pain of ri ght shoulder joint 7427852920 4301283 M25.511 Dr Ramos 10/01/2022 , s/p kenalog Chronic ki dney disease 620788751 N18.[address] Banks IJ Chronic neck pain 443338 7742 107 M54.2 Get Xray C-spineIf not better, get PT and may need to see IPC Xray C-spine 12/02/2022 Screening for malignant neoplasm of colon 330241993 Z12.11 Pruritic rash 10389513 L 28.2 In the groin area, red and itchy, not examined today, no rash at present, would like a refill of nystatin-t riamcinolo ne Low back pain 733391426 M54.50 Xrays noted 06/24/2023 Already on the diclofenac given by Kobe Madrigal on flexerillN eeds another apt with ortho Osteoarthr itis of bilateral hip joints 2301595391 55503 M16.0 Has seen Kobe Madrigal another referral Screening for osteoporosis 386820782 Z13.820 Vitamin D deficiency 347 65745 E55.9 [id number] Aditya lancaster MD [facility] [address] [place] [address] 12/29/2023 10:48:52 12/29/2023 12:31:05 Screening - NAD 245717937 Z13.9 C-scope: 02/22/2014 : Dr Da Silva-alo pe: 07/15/2019 : Dr Da Silva Mammogram: [...] vaccine RTC in 1 monthDo labsER if jorgeshgladys did verbalize his understand ing of the above Type 2 ofe betes mellitus without complication 629786175 E11.9 Not taking metformin ER 500mg bidOn ozempic, does well denies any MCT, MEN2 or pancreatic issues, will increase that ozempic to 1mg weeklyGet labs Does wellNeeds to see her eye MD Does see Dr Long on 11/02/2020 Does not want heraclio Mast ill refer to Dr Angeles Hyperlipidemia 38143676 E78.5 On rosuvastat in 20mg dailyGet labs Hypothyroidism 57224122 E03.9 On levothyrox ine 100mcgs dailyDoes wellRepeat the labsGet US thyroid Restless l egs syndrome 30342801 G25.81 Not on requip now On tizanidine 4mg dailyDoes well Gastroesop hageal reflux disease without esophagitis 190963472 K21.9 S/p EGDOn nexium, take as needed only Does well Sinus tachycardia 263319 01 R00.0 s/p Stress test 08/24/2020 : NegS/p ECHO 08/24/2020 On metoprolol ER 25mg dailyOn lisinopril 5mg dailyDoes well Sees [facility] Dr Auguste last OV 09/19/2021 Thrombocyt openic disorder 136165519 D69.[address] Heart Last OV 03/13/2021 , f/u yearlyLast OV 03/19/2022 , f/u yearlyOV 04/23/2023 : F/u yearly Obstructiv e sleep apnea syndrome 76882209 G47.33 S/p sleep study 12/28/17Is using the CPAP and is very compliant 04/13/2019 : CT Chest: Deysi Butler, no acute intrathora cic process, thyrodi calcificat ions, F/u USOld granulomat os disease Keep apt with [employer] 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 [place] 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 09/11/2022 Dr Warner last 06/12/2023 , next 12/25/2023 Environmental allergy 42 5323199 T78.49XD On proairOn singulair Does well Forgetful 58189037 R41.3 Get labsS/p MRI brain 06/26/2020 May need to see neurology Pain of bi lateral knee joints 7980506179 65146 M25.561 M25.562 S/p jeff TKRs Dr Ramos 09/17/2021 Cirrhosis of liver 15819 007 K74.60 US Liver 06/26/2020 US liver 07/26/2021 : Nodular margins, cirrhosisG et an apt with GI hepatology Dr Roberts also, has seen Anastasia Francisco in 01/2021 Anastasia Gandhi 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 02/13/2023 , f/u in 6 monthsUS liver 03/13/2022 , see case Moderate r ecurrent major depression 08998195 F33.1 On venlafaxin e ER 75mgs dailyDoes wellNot suicidal or homicidalD eclines any referral to psychiatry Can renew when needed Essential hypertension 67390710 I10 On lisinopril 5mgOn metoprolol ER 25mg daily, may need to adjust this COVID-19 707291202 U07.1 +ve 10/29/2022 , see case 10/29/2022 Pain of ri ght shoulder joint 9721760232 2887913 M25.511 Dr Ramos 10/01/2022 , s/p kenalog Chronic ki dney disease 822625892 N18.[address] aBnks IJ Chronic neck pain 045857 5656 107 M54.2 Get Xray C-spineIf not better, get PT and may need to see IPC Xray C-spine 12/02/2022 Screening for malignant neoplasm of colon 616821788 Z12.11 Pruritic rash 60470723 L 28.2 In the groin area, red and itchy, not examined today, no rash at present, would like a refill of nystatin-t riamcinolo ne Low back pain 950553057 M54.50 Xrays noted 06/24/2023 Already on the diclofenac given by Kobe Madrigal on flexerillN eeds another apt with ortho Osteoarthr itis of bilateral hip joints 8988684630 58335 M16.0 Has seen Kobe Madrigal another referral Screening for osteoporosis 999336067 Z13.820 Vitamin D deficiency 347 09961 E55.9 Renewal of prescription 382987861 Z76.0 [id number] Aditya lancaster MD [facility] [place] j[address] [facility] [address] [place] [address] 03/31/2024 14:20:58 03/31/2024 15:22:27 Screening - NAD 700714269 Z13.9 C-scope: 02/22/2014 : Dr Da SilvaC-sco [...] Type 2 ofe betes mellitus without complication 866208245 E11.9 Not taking metformin ER 500mg bidOn ozempic, does well denies any MCT, MEN2 or pancreatic issues, ozempic to 1mg weekly, can increase to 1.7mg weeklyGet labs Does wellNeeds to see her eye Does see Dr Long on 11/02/2020 Does not want heraclio Mast ill refer to Dr Angeles Hyperlipidemia 50476940 E78.5 On rosuvastat in 20mg dailyGet labs Hypothyroidism 79235077 E03.9 On levothyrox ine 100mcgs dailyDoes wellRepeat the labsGet US thyroid Restless l egs syndrome 96227634 G25.81 Not on requip now On tizanidine 4mg dailyDoes well Gastroesop hageal reflux disease without esophagitis 674544584 K21.9 S/p EGDOn nexium, take as needed only Does well Sinus tachycardia 159811 01 R00.0 s/p Stress test 08/24/2020 : NegS/p ECHO 08/24/2020 Not on metoprolol ER 25mg dailyNot on lisinopril 5mg dailyOn olmesartan 5mg daily Dr Dickson well Sees [facility] Dr Auguste Thrombocyt openic disorder 766781634 D69.[address] Heart Last OV 03/13/2021 , f/u yearlyLast OV 03/19/2022 , f/u yearlyOV 04/23/2023 : F/u yearly Obstructiv e sleep apnea syndrome 43588692 G47.33 S/p sleep study 12/28/17Is using the CPAP and is very compliant 04/13/2019 : CT Chest: Deysi Butler, no acute intrathora cic process, thyrodi calcificat ions, F/u USOld granulomat os disease Keep apt with [employer] 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 [place] 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 09/11/2022 Dr Warner Environmental allergy 42 0357386 T78.49XD On proairOn singulair Does well Forgetful 00443083 R41.3 Get labsS/p MRI brain 06/26/2020 May need to see neurology Pain of bi lateral knee joints 8370125237 86025 M25.561 M25.562 S/p jeff TKRs Dr Ramos 09/17/2021 Cirrhosis of liver 61169 007 K74.60 US Liver 06/26/2020 US liver 07/26/2021 : Nodular margins, cirrhosisG et an apt with GI hepatology Dr Roberts also, has seen Anastasia Francisco in 01/2021 Anastasia Gandhi 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 02/13/2023 , f/u in 6 monthsUS liver 03/13/2022 , see case Moderate r ecurrent major depression 28204563 F33.1 On venlafaxin e ER 75mgs dailyDoes wellNot suicidal or homicidalD eclines any referral to psychiatry Can renew when needed Essential hypertension 65170633 I10 Off lisinopril 5mgOff metoprolol ER 25mg daily, may need to adjust thisOn olmesartan COVID-19 928165886 U07.1 +ve 10/29/2022 , see case 10/29/2022 Pain of ri ght shoulder joint 2646599554 5640416 M25.511 Dr Ramos 10/01/2022 , s/p luz mariaalog S/p MRI 03/10/2024 Dr Leyva Chronic ki dney disease 930566299 N18.[address] Darren Ying sees Dr Arora Chronic neck pain 942198 4260 107 M54.2 Get Xray C-spineIf not better, get PT and may need to see IPC Xray C-spine 12/02/2022 Screening for malignant neoplasm of colon 835518018 Z12.11 Pruritic rash 35111533 L 28.2 In the groin area, red and itchy, not examined today, no rash at present, would like a refill of nystatin-t riamcinolo ne Low back pain 595827273 M54.50 Xrays noted 06/24/2023 Already on the diclofenac given by Kobe Madrigal on flexerillN eeds another apt with ortho Osteoarthr itis of bilateral hip joints 7370556473 99105 M16.0 Has seen Kobe Madrigal another referral Screening for osteoporosis 173023202 Z13.820 Vitamin D deficiency 347 78992 E55.9 [id number] Aditya lancaster MD [facility] Primary Care [address] [place] [address] 07/21/2024 16:05:46 07/22/2024 08:32:29 Open wound 883953345 T14.8XXA 76732 Get on triple ointment, and keep area clean and dryIs to see wound clinic [id number] Aditya lancaster MD [facility] [address] [place] [address] 08/02/2024 10:24:08 08/02/2024 12:50:37 Screening - NAD 078916131 Z13.9 C-scope: 02/22/2014 : Dr Da SilvaC-sco [...] COVID 19 vaccine RTC in 3 monthsDo labsER if Christine and Narendra did verbalize her understand ing of the above 45 minutes spent with the patient from 9.35am till 10.20am, labs reviewed, referrals provided to Dr Leyva and to wound clinic Type 2 ofe betes mellitus without complication 039271475 E11.9 Not taking metformin ER 500mg bidOn ozempic, does well denies any MCT, MEN2 or pancreatic issues, ozempic to 1mg weekly, can increase to 1.7mg weeklyGet labs Does wellNeeds to see her eye MD Does see Dr Long on 11/02/2020 Does not want heraclio Mast ill refer to Dr Angeles Hyperlipidemia 83496278 E78.5 On rosuvastat in 20mg dailyGet labs Hypothyroidism 96766411 E03.9 On levothyrox ine 100mcgs dailyDoes wellRepeat the labsGet US thyroid Restless l egs syndrome 47450862 G25.81 Not on requip now On tizanidine 4mg dailyDoes well Gastroesop hageal reflux disease without esophagitis 684306312 K21.9 S/p EGDOn nexium, take as needed only Does well Sinus tachycardia 441014 01 R00.0 s/p Stress test 08/24/2020 : NegS/p ECHO 08/24/2020 Not on metoprolol ER 25mg dailyNot on lisinopril 5mg dailyOn olmesartan 5mg daily Dr Dickson well Sees [facility] Dr Auguste Thrombocyt openic disorder 979777109 D69.[address] Una Last OV 03/13/2021 , f/u yearlyLast OV 03/19/2022 , f/u yearlyOV 04/23/2023 : F/u yearly Obstructiv e sleep apnea syndrome 19153047 G47.33 S/p sleep study 12/28/17Is using the CPAP and is very compliant 04/13/2019 : CT Chest: Deysi Butler, no acute intrathora cic process, thyrodi calcificat ions, F/u USOld granulomat os disease Keep apt with [employer] 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 [place] 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 09/11/2022 Dr Warner Environmental allergy 42 4874970 T78.49XD On proairOn singulair Does well Forgetful 40126125 R41.3 Get labsS/p MRI brain 06/26/2020 May need to see neurology Pain of bi lateral knee joints 8820340166 87494 M25.561 M25.562 S/p jeff TKRs Dr Ramos 09/17/2021 Cirrhosis of liver 06372 007 K74.60 US Liver 06/26/2020 US liver 07/26/2021 : Nodular margins, cirrhosisG et an apt with GI hepatology Dr Roberts also, has seen Anastasia Francisco in 01/2021 Anastasia Gandhi 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 02/13/2023 , f/u in 6 monthsUS liver 03/13/2022 , see case Moderate r ecurrent major depression 47489787 F33.1 On venlafaxin e ER 75mgs dailyDoes wellNot suicidal or homicidalD eclines any referral to psychiatry Can renew when needed Essential hypertension 72642041 I10 Off lisinopril 5mgOff metoprolol ER 25mg daily, may need to adjust thisOn olmesartan COVID-19 406414117 U07.1 +ve 10/29/2022 , see case 10/29/2022 Pain of ri ght shoulder joint 7944895131 4732891 M25.511 Dr Ramos 10/01/2022 , s/p kenalog S/p MRI 03/10/2024 Dr Leyva Chronic ki dney disease 785549687 N18.[address] Darren Ying sees Dr Arora Chronic neck pain 115120 8692 107 M54.2 Get Xray C-spineIf not better, get PT and may need to see IPC Xray C-spine 12/02/2022 Screening for malignant neoplasm of colon 924851756 Z12.11 Pruritic rash 98471268 L 28.2 In the groin area, red and itchy, not examined today, no rash at present, would like a refill of nystatin-t riamcinolo ne Low back pain 970674659 M54.50 Xrays noted 06/24/2023 Already on the diclofenac given by Kobe Madrigal on flexerillN eeds another apt with ortho Osteoarthr itis of bilateral hip joints 2057566345 09587 M16.0 Has seen Kobe Leyva S/p xray hip 06/14/2024 : Moderate OA hips Referred to Dr Leyva 08/02/2024 Vitamin D deficiency 347 96686 E55.9 Open wound 502362814 T14 .8XXA 09570 Get on triple ointment, and keep area clean and dryIs to see wound clinic [id number] Jewel loera MD [facility] [address] [facility], [facility] [address] [place] [address] 08/10/2024 12:25:07 08/16/2024 15:53:50 Bleeding hemorrhoids 81018313 K64.9 4319 [id number] Aditya lancaster MD [facility] Primary [facility] [address] [facility] [address] [place] [address] 10/04/2024 10:46:23 10/04/2024 11:50:30 Screening - NAD 416660419 Z13.9 C-scope: 02/22/2014 : Dr Da SilvaC-sco [...] COVID 19 vaccine RTC in 3 monthsDo labsER if Christine and Narendra did verbalize her understand ing of the above Type 2 ofe betes mellitus without complication 886536316 E11.9 Not taking metformin ER 500mg bidOn ozempic, does well denies any MCT, MEN2 or pancreatic issues, ozempic to 1mg weekly, will d/c OzempicGet labs Does wellNeeds to see her eye MD Does see Dr Long on 11/02/2020 Does not want heraclio Mast ill refer to Dr Angeles Hyperlipidemia 30684401 E78.5 On rosuvastat in 20mg dailyGet labs Hypothyroidism 57706362 E03.9 On levothyrox ine 100mcgs daily, increase to 125mcgs dailyDoes wellRepeat the labsGet US thyroid Restless l egs syndrome 88562376 G25.81 Not on requip now On tizanidine 4mg dailyDoes well Gastroesop hageal reflux disease without esophagitis 725778980 K21.9 S/p EGDOn nexium, take as needed only Does well Sinus tachycardia 807875 01 R00.0 s/p Stress test 08/24/2020 : NegS/p ECHO 08/24/2020 Not on metoprolol ER 25mg dailyNot on lisinopril 5mg dailyOn olmesartan 5mg daily Dr Dickson well Sees [facility] Dr Auguste Thrombocyt openic disorder 852080168 D69.[address] Heart Last OV 03/13/2021 , f/u yearlyLast OV 03/19/2022 , f/u yearlyOV 04/23/2023 : F/u yearly Obstructiv e sleep apnea syndrome 46993870 G47.33 S/p sleep study 12/28/17Is using the CPAP and is very compliant 04/13/2019 : CT Chest: Deysi Hopper, no acute intrathora cic process, thyrodi calcificat ions, F/u USOld granulomat os disease Keep apt with America 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 America 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 09/11/2022 Dr Warner Environmental allergy 42 6093681 T78.49XD On proairOn singulair Does well Forgetful 17683929 R41.3 Get labsS/p MRI brain 06/26/2020 May need to see neurology Pain of bi lateral knee joints 0294665530 88192 M25.561 M25.562 S/p jeff TKRs Dr Ramos 09/17/2021 Cirrhosis of liver 51056 007 K74.60 US Liver 06/26/2020 US liver 07/26/2021 : Nodular margins, cirrhosisG et an apt with GI hepatology Dr Roberts also, has seen Anastasia Francisco in 01/2021 Anastasia Gandhi 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 02/13/2023 , f/u in 6 monthsUS liver 03/13/2022 , see case Moderate r ecurrent major depression 25212331 F33.1 On venlafaxin e ER 75mgs dailyDoes wellNot suicidal or homicidalD eclines any referral to psychiatry Can renew when needed Essential hypertension 62749274 I10 Off lisinopril 5mgOff metoprolol ER 25mg daily, may need to adjust thisOn olmesartan COVID-19 946189920 U07.1 +ve 10/29/2022 , see case 10/29/2022 Pain of ri ght shoulder joint [id number] 5000780 M25.511 Dr Ramos 10/01/2022 , s/p kenalog S/p MRI 03/10/2024 Dr Leyva Is to get surgery on 12/16/2024 at [facility] Dr Leyva Chronic ki dney disease 272409787 N18.[address] Darren Ying sees Dr Arora Chronic neck pain 228065 5489 107 M54.2 Get Xray C-spineIf not better, get PT and may need to see IPC Xray C-spine 12/02/2022 Pruritic rash 30685943 L 28.2 In the groin area, red and itchy, not examined today, no rash at present, would like a refill of nystatin-t riamcinolo ne Low back pain 089280384 M54.50 Xrays noted 06/24/2023 Already on the diclofenac given by Kobe MONCADA Osteoarthr itis of bilateral hip joints 4780024078 13071 M16.0 Has seen Kobe Leyva S/p xray hip 06/14/2024 : Moderate OA hips Referred to Dr Leyva 08/02/2024 Vitamin D deficiency 347 66653 E55.9 Open wound 767061837 T14 .8XXA 04447 Seen by wound clinic America MONCADA [id number] Fran Warner MD [facility] [place] [address] [facility] [address] [place] [address] 11/01/2024 13:57:31 11/02/2024 13:46:27 Obstructive sleep apnea syndrome 31134371 G47.33 [id number] Roni Lora MD [facility] [place] [address] [place] [address] 11/25/2024 11:35:26 11/26/2024 08:28:59 Chronic sinusitis 34818618 J32.9 [id number] Health Concerns Section Related Observation LastModified by Organization Detai ls LastModified Time None Recorded Concern Status LastModified by Organization Details LastModified Time None Recorded Advance Directives Directive Y: asked to bring copy for c florez Payers Insurance Date Sequence Insurance Name Policy Number Policy Bush Covered Member ID Bush Member ID Guarantor Name 11/22/2024 1 [employer] (MEDICARE REPLACEMENT/ ADVANTAGE - PPO) [id number] Mercedes Wilkerson [id number] Mercedes Wilkerson Notes Date Note Type Note Provider Name and Address Organization Details Recorded Time 08/02/2024 text/html Here to establish carePast Hx:HypothyrodismDepres sionReviewed social family and surgical historyShe [...] review theseShe did see Dr Heart the asphalt heater tender and is now to see a hepatologistOV [...] labs as Joseluise did see the ortho PA Benigno for [...] to be done Aditya Joyce MD [address], [place], [address], [employer] [facility] 08/02/2024 11:22:26 08/10/2024 text/html Patient presents to [...] when wiping. Jewel Santizo MD [address], [place], [address], [employer] [facility] 08/12/2024 12:20:41 10/04/2024 text/html Here to establish carePast Hx:HypothyrodismDepres sionReviewed social family and surgical historyShe [...] review theseShe did see Dr Heart the asphalt heater tender and is now to see a hepatologistOV [...] she did do the labs OV 07/21/2024: ISAACHas noted an open wound to the buttock [...] her R shoulder surgery to be done OV 10/04/2024: Here for her f/u aptTiffani feels well today, she did do the labs, she is here with her Aditya Joyce MD [address] [place] [address], [facility] [address], [place], [address], [place] [facility] 10/05/2024 09:15:51 11/01/2024 text/html Primary care/Referring provider: Aditya Joyce MD During the [facility] split sleep study on 12/28/17, AHI = 73. At home since 06/12/23, the patient uses a ResMed AirSense 11 autoset unit with heated humidification. The patient does not need the ramp to start low and go up slowly on the pressure anymore. There is some xerostomia in a.m. There is no hose/mask condensation with water.The patient switched from a [employer] small Eson nasal mask to a ResMed [...] in the afternoon when circumstances permit - 3Sitting and talking to someone - 0Sitting quietly after lunch without alcohol - 1In a car, while stopped for a few minutes in the traffic - 0TOTAL SCORE 6Subjectively, patient has a slight chance of dozing. Fran Warner MD [address] [address], [place], [address], [facility] 11/01/2024 14:40:01 11/25/2024 text/html this patient reports years of sinusitis and she is scheduled for a shoulder replacement in early December. Her symptoms are constant and she has been on antibiotics in the past. There has been no recent imaging. Roni Lora MD [address], [place], [address], [place] [facility] 11/25/2024 11:58:22 OBGyn Episode No OBEpisode recorded.
--- OUTSIDE RECORDS SUMMARY | 2024-12-16 16:12 | XMS_ITS | Clinical Summary ---
Author Organization [facility] Address [address] [facility] [address] [address] Care Team Providers Care Veterinary Receptionist Name Role Phone Soy Joyce MD Primary Care Provider Source Comments [facility]non-owned Affiliates and Associated Physician Practices is amultiple site organization consisting of ambulatory clinics and hospital sitesin [place], [place], [place] and [place]. This disclosure is being madepursuant to the Care Everywhere program and may not contain all information available regarding this patient. Last updated 17.[facility] 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) (Primary [...] CDT Respiratory Rate 18 02/13/2023 10:13 AM HAT AND CAP OPENER Oxygen Saturation 96% 12/10/2024 10:13 AM CDT Inhaled Oxygen Concentration - - Weight 96.2 kg (212 lb) 12/10/2024 10:13 AM CDT Height 165.1 cm (5' 5) 12/10/2024 10:13 AM CDT Body Mass Index 35.28 12/10/2024 10:13 AM CDT Plan of Treatment Upcoming Encounters Date Type Department Care Team (Late st Contact Info) Description 07/15/2025 9:00 AM CDT Appointment [facility] [address] [place] [phone] Anastasia Gandhi, REGULATOR ASSEMBLER-LASER BEAM TRIM OPERATOR [address] [facility] [address] DIV [place] [address] 07/15/2025 10:00 AM CDT Office Visit [facility] - GI [address] [facility] [place] [phone] Anastasia Gandhi, REGULATOR ASSEMBLER-LASER BEAM TRIM OPERATOR [address] [facility] [address] [place] [address] Health Maintenance Due Date Last Done Comments [...] COMPREHENSIVE METABOLIC PANEL Routine 03/04/2024 12:25 PM HAT AND CAP OPENER 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) Liver lesion MICROALB/CREAT RATIO URINE (EXTERNAL RESULT ENTRY) Routine 11/27/2022 9:45 AM CDT HEMOGLOBIN A1C (EXTERNAL RESULT ENTRY) Routine 11/27/2022 9:45 AM CDT from Last 3 Months or Most Recently Relevant to Health Maintenance Results * (ABNORMAL) COMPREHENSIVE METABOLIC PANEL (03/04/2024 12:25 PM HAT AND CAP OPENER) BUN 16 7 - 26 mg/dL 03/04/2024 12:59 PM [facility] Creatinine 0.92 0.56 - 0.96 mg/dL 03/04/2024 12:59 PM [facility] Sodium 141 136 - 145 mmol/L 03/04/2024 12:59 PM [facility] Potassium 4.6(H) 3.5 - 4.5 mmol/L 03/04/2024 12:59 PM [facility] Chloride 106 98 - 107 mmol/L 03/04/2024 12:59 PM [facility] CO2 26 22 - 29 mmol/L 03/04/2024 12:59 PM [facility] Glucose 110(H) 70 - 99 mg/dL 03/04/2024 12:59 PM [facility] Calcium 9.7 8.4 - 10.2 mg/dL 03/04/2024 12:59 PM [facility] Protein Total 7.5 6.0 - 8.3 g/dL 03/04/2024 12:59 PM [facility] Albumin 4.0 3.4 - 5.0 g/dL 03/04/2024 12:59 PM [facility] Bilirubin Total 0.6 0.2 - 1.2 mg/dL 03/04/2024 12:59 PM [facility] Alkaline Phosphatase 51 40 - 150 U/L 03/04/2024 12:59 PM [facility] ALT 26 5 - 55 U/L 03/04/2024 12:59 PM [facility] AST 30 5 - 34 U/L 03/04/2024 12:59 PM [facility] Anion Gap 9 6 - 16 03/04/2024 12:59 PM [facility] BUN/Creatinine Ratio 17 7 - 23 03/04/2024 12:59 PM [facility] Osmolality Calculated 294 275 - 295 mOsm/kg 03/04/2024 12:59 PM [facility] Albumin/Globulin Ratio 1.1 1.1 - 2.3 03/04/2024 12:59 PM [facility] eGFR by CKD-EPI 63(L) >=90 mL/min/1.7 3 m2 03/04/2024 12:59 PM [facility] Blood BLOOD SPECIMEN / Unknown Lab Venipuncture / Unknown 03/04/2024 12:25 PM HAT AND CAP OPENER 03/04/2024 12:32 PM [facility] Anastasia Gandhi REGULATOR ASSEMBLER-LASER BEAM TRIM OPERATOR LAB - CHEMISTRY ORD ERABLES Final Result [facility] [address] [place] [address], [facility] [phone] * MICROALB/CREAT RATIO URINE (EXTERNAL RESULT ENTRY) [...] Insurance AET AETNA MEDICARE ADV Care Teams Veterinary Receptionist Relationship Specialty Start Date End Date Soy Joyce MD [address] [facility] [address] [place] [address] PCP - General 02/04/21
--- OUTSIDE RECORDS SUMMARY | 2024-12-16 16:12 | XMS_ITS | Clinical Summary ---
Author Organization [facility] Address [address] [place] [address] Care Team Providers Care Shift Stacker Name Role Phone Soy Joyce MD Primary [...] Body Mass Index 37.08 03/13/2021 10:16 AM FAMILY RESOURCE COORDINATOR Plan of Treatment Upcoming Encounters Date Type Department Care Team (Late st Contact Info) Description 01/25/2025 11:30 AM FAMILY RESOURCE COORDINATOR Office Visit [facility] Oncology and Hematology - [place] [address] [facility] [address] [place] [address] Danny Heart MD [address] [facility] [address] [place] [address] Health Maintenance Due Date Last [...] Comments HEMOGLOBIN A1C Routine 03/24/2024 3:34 PM FAMILY RESOURCE COORDINATOR LIPID PANEL Routine 06/21/2020 MICROALBUMIN, RANDOM URINE Routine 02/24/2020 from Last 3 Months or Most Recently Relevant to Health Maintenance Results * HEMOGLOBIN A1C (03/24/2024 3:34 PM FAMILY RESOURCE COORDINATOR) Blood us Danny Heart MD CHEMISTRY ORDERABLES Final Resu lt * LIPID PANEL (06/21/2020) Blood us Abstract Provider CHEMISTRY ORDERABLES Final Res ult * MICROALBUMIN, RANDOM URINE (02/24/2020) Urine URINE SPECIMEN OBTAINED BY CLEAN CATCH PROCEDURE / Unknown us Abstract Provider URINE ORDERABLES Final Result from Last 3 Months or Most Recently Relevant to Health Maintenance Insurance AET[employer] PPO MCR Care Teams Shift Stacker Relationship Specialty Start Date End Date Soy Joyce MD PCP - General Internal Medicine 12/23/17
--- OUTSIDE RECORDS SUMMARY | 2024-12-16 16:12 | XMS_ITS | Clinical Summary ---
Author Organization [facility] Address [address] [address] Care Team Providers Care Business Operations Analyst Name Role Phone Soy Joyce MD Primary Care Provider [phone] Medications olmesartan (BENICAR) 5 MG tablet TAKE [...] Comments Blood Pressure 110/60 03/02/2024 3:49 PM CATTLE RANCHER Pulse 68 03/02/2024 3:49 PM CATTLE RANCHER Temperature 36.7 C (98 F) 03/02/2024 3:49 PM CATTLE RANCHER Respiratory Rate 18 03/02/2024 3:49 PM CATTLE RANCHER Oxygen Saturation 97% 03/02/2024 3:49 PM CATTLE RANCHER Inhaled Oxygen Concentration - - Weight 99.3 kg (219 lb) 03/02/2024 3:49 PM CATTLE RANCHER Height - - Body Mass Index - [...] 9, 03/17/2017 Insurance A[employer]na MCR Adv PPO ([id number]) Advance Directives Documents on File Type Date Recorded Patient Director Traffic And Planning Expl anation Advance Care Planning 01/02/2024 12:13 PM Care Teams Business Operations Analyst Relationship Specialty Start Date End Date Soy Joyce MD [address] [facility] [place] [address] PCP - General Internal Medicine 09/25/23
--- OUTSIDE RECORDS SUMMARY | 2024-12-16 16:12 | XMS_ITS | Patient Health Record ---
Author Organization [facility] Address [address] [facility] [address] [place] [address] Reason For Referral No Information Medications Medication SIG (Take, Route, Frequency, Duration) Notes Start Date End Date Status Vitamin D (Ergocalciferol) 1.25 MG (75918 UT) TAKE 1 CAPSULE BY MOUTH EVERY OTHER WEEK; Duration: 30 Active Problems Problem Type SNOMED Code ICD Code Onset Dates Problem Status W/U Status Risk Notes Problem Hyperglycemia due to type 2 diabetes mellitus (518901735807642) Type 2 diabetes mellitus with hyperglycemia (E11.65) Active confirmed Problem Essential hypertension (09158301) Essential (primary) hypertension (I10) Active confirmed Problem Chronic kidney disease stage 2 (367736999) Chronic kidney disease, stage 2 (mild) (N18.2) Active confirmed Problem Proteinuria (82675881) Proteinuria, unspecified (R80.9) Active confirmed Plan Of Treatment No Information
[2024-12-16] MEDS: RIVAROXABAN 10 MG TABLET PO (17:10)
[2024-12-17 00:11] VITALS: BP 114/61; PULSE 84; RESP 22; TEMP 36.8; O2SAT 97
[2024-12-17] MEDS: ACETAMINOPHEN 325 MG TABLET 650 MG PO ×2 (01:08→06:16)
[2024-12-17 04:01] VITALS: BP 110/55; PULSE 79; RESP 22; TEMP 36.6; O2SAT 97
[2024-12-17] MEDS: ceFAZolin 2 GM in SODIUM CHLORIDE 0.9% IV 50 ML 100 ML IVPB (06:16)
[2024-12-17] MEDS: LEVOTHYROXINE SODIUM 125 MCG TABLET PO (06:16)
[2024-12-17 06:25] LABS: Hematocrit 39.5 % (37.0-47.0); Hemoglobin 12.0 g/dL (12.0-15.0); Immature Granulocyte Percent A 0.5 % (0-0.5); Immature Platelet Fraction Pct 2.4 % (0.9-11.2); Lymphocytes Absolute Auto 1.23 K/mm3 (0.9-3.2); Mean Corpuscular HGB Conc 30.4 g/dl (32-36); Mean Corpuscular Hemoglobin 30.4 pg (26-34); Mean Corpuscular Volume 100.0 fl (80-100); Nucleated Red Blood Cells Absolute Auto 0.000 K/mm3 (0.0-0.012); Nucleated Red Blood Cells Perc 0.0 % (0.0-0.2); Platelet Count Result 133 k/mm3 (150-375); Red Blood Count 3.95 M/mm3 (4.2-5.4); White Blood Count 8.4 K/mm3 (4.5-10.0)
[2024-12-17 06:49] LABS: Anion Gap 3 mmol/L (4-12); Blood Urea Nitrogen 21 mg/dL (7-17); Calcium 8.5 mg/dL (8.4-10.2); Carbon Dioxide 30 mmol/L (22-30); Chloride 104 mmol/L (98-107); Estimated CRCL calculation 46 ml/min; Estimated Glomerular Filt Rate 59; Glucose 122 mg/dL (65-110); Potassium 4.6 mmol/L (3.4-5.0); Sodium 137 mmol/L (137-145)
--- NOTE | 2024-12-17 07:56 | PCPTNOTE ---
Attempted to see patient for PT, however patient wanted to eat breakfast.
[2024-12-17 08:42] VITALS: PULSE 89
[2024-12-17] MEDS: OLMESARTAN MEDOXOMIL 5 MG TABLET PO (08:42)
[2024-12-17] MEDS: SENNA/DOCUSATE SODIUM TABLET 2 TAB PO (08:42)
[2024-12-17] MEDS: MONTELUKAST SODIUM 10 MG TABLET PO (08:42)
[2024-12-17] MEDS: METOPROLOL SUCCINATE EXT REL 25 MG TABCR PO (08:42)
[2024-12-17] MEDS: FAMOTIDINE 20 MG TABLET PO (08:42)
[2024-12-17] MEDS: ROSUVASTATIN 20 MG TABLET PO (08:43)
[2024-12-17] MEDS: VENLAFAXINE HCL XR 75 MG CAP.ER.24H PO (08:43)
[2024-12-17 09:12] VITALS: BP 107/52; PULSE 91; RESP 16; TEMP 36.3; O2SAT 94
[2024-12-17 09:13] VITALS: O2SAT 93
[2024-12-17] MEDS: oxyCODONE/ACETAMINOPHEN (*CRX) 5-325 MG TABLET 1 TABLET PO (10:20)
[2024-12-17 11:49] VITALS: BP 70/60; PULSE 92; RESP 18; TEMP 36.4; O2SAT 94
== END 2024-12-17 14:00 | disposition home or self-care (01) ==
LOC: ANHSURGERY 07:19 → ANH3MEDSUR 11:30
PROVIDERS: Anesthesiology; Physician Assistant Surgical; PCP Internal Medicine; Visit Provider Orthopaedic Surgery
PROC: (CPT 23472; principal; 2024-12-16 07:30)
DX: M19.011 Primary osteoarthritis, right shoulder (principal); M25.711 Osteophyte, right shoulder; G89.18 Other acute postprocedural pain; G89.29 Other chronic pain; E78.5 Hyperlipidemia, unspecified; I10 Essential (primary) hypertension; E03.9 Hypothyroidism, unspecified; G47.33 Obstructive sleep apnea (adult) (pediatric); E66.9 Obesity, unspecified; Z68.38 Body mass index [BMI] 38.0-38.9, adult; Z98.890 Other specified postprocedural states; Z90.49 Acquired absence of other specified parts of digestive tract; Z87.891 Personal history of nicotine dependence; Z80.3 Family history of malignant neoplasm of breast
CPT/HCPCS: 64415; 23472; 36415; 73030; 80048; 85025; 85049; 85055; 97110; 97161; 97166; 97530; 97535; J0690; A4565; A9270; C1776; J0166; J1100; J1885; J2003; J2270; J2405; J2704; J2795; J3010; J3290; J3373; J7120

== ENCOUNTER 2025-01-24 13:01 | Outpatient (CLI) | payer MEDICARE, SELFPAY ==
[2025-01-24 13:25] LABS: Hematocrit 44.2 % (37.0-47.0); Hemoglobin 13.6 g/dL (12.0-15.0); Immature Granulocyte Percent A 0.6 % (0-0.5); Immature Platelet Fraction Pct 1.9 % (0.9-11.2); Lymphocytes Absolute Auto 2.01 K/mm3 (0.9-3.2); Mean Corpuscular HGB Conc 30.8 g/dl (32-36); Mean Corpuscular Hemoglobin 30.4 pg (26-34); Mean Corpuscular Volume 98.7 fl (80-100); Nucleated Red Blood Cells Absolute Auto 0.000 K/mm3 (0.0-0.012); Nucleated Red Blood Cells Perc 0.0 % (0.0-0.2); Platelet Count Result 160 k/mm3 (150-375); Red Blood Count 4.48 M/mm3 (4.2-5.4); White Blood Count 6.3 K/mm3 (4.5-10.0)
[2025-01-24 16:31] LABS: Alanine Aminotransferase 29 U/L (6-35); Albumin Level 4.1 g/dL (3.5-5.1); Alkaline Phosphatase 90 U/L (38-126); Anion Gap 3 mmol/L (4-12); Aspartate Amino Transferase 55 U/L (14-36); Bilirubin,Total 0.5 mg/dL (0.2-1.3); Blood Urea Nitrogen 21 mg/dL (7-17); Calcium 9.6 mg/dL (8.4-10.2); Carbon Dioxide 30 mmol/L (22-30); Chloride 105 mmol/L (98-107); Estimated Glomerular Filt Rate 53; Glucose 108 mg/dL (65-110); Potassium 4.4 mmol/L (3.4-5.0); Sodium 138 mmol/L (137-145); Total Protein 7.3 g/dL (6.3-8.2)
== END 2025-01-24 13:02 | disposition home or self-care (01) ==
LOC: ANHLAB 13:02
PROVIDERS: PCP Internal Medicine; Visit Provider Internal Medicine Hematology & Oncology
DX: D69.59 Other secondary thrombocytopenia (principal)
CPT/HCPCS: 36415; 80053; 85025; 85055

== ENCOUNTER 2025-02-07 12:30 | Outpatient (RCR) | payer MEDICARE, SELFPAY ==
--- NOTE | 2024-12-30 12:06 | OPREHPOC ---
Outpatient Therapy Plan of Care This is a Multidisciplinary Plan of Care that may contain components documented by all disciplines (PT, OT, and ST.) PT Problem 1 PT Problem #1 Knowledge Deficit PT Goal 1 Goal / Goal Update 1. Patient to demonstrate independence with HEP for improved self-reliance of symptom management. Target Visit 4 PT Problem 2 PT Problem #2 Pain PT Goal 1 Goal / Goal Update 1. Patient to decrease subjective reports of pain to <3/10 for improved ADL tolerance. 2. Patient will score </=25% disability on the QuickDash to demonstrate meaningful improvement in patient's quality of life. Target Visit 10 PT Problem 3 PT Problem #3 Impaired Range of Motion PT Goal 1 Goal / Goal Update 1. Pt to demonstrate an increase of R shoulder AROM to >=90 deg to improve the ability to reach overhead. Target Visit 10 PT Goal 2 Goal / Goal Update 1. Pt to demonstrate an increase of R shoulder AROM to >=145 deg to improve the ability to reach overhead. Target Visit 20 PT Problem 4 PT Problem #4 Impaired Functional Mobility PT Goal 1 Goal / Goal Update 1. Pt will report complete independence without compensation or adaptive equipment for hygiene and dressing activities.
--- NOTE | 2024-12-30 12:07 | PTOPEVAL1 ---
Assessment and note entered by Rock Giordano PT Evaluation Information Assessment Status Evaluation Diagnosis R r TSA ICD-10 Condition Codes (PT) Pain in right shoulder M25.511 Subjective Information Patient presents status post R rTSA on 12-16-[address] Leyva. Patient reports no complications with surgery. Patient is currently using sling at all times except for hygiene and exercises. Patient needs to get back to, activities of daily living and instrumental activities of daily living . Patient is currently sleeping in recliner but slept like this prior to surgery. Patient is having assist with dressing and donning and doffing sling. Pt has follow up with Dr. Leyva tomorrow. Reported Pain Level Pain Score 2: Self Report Assessment PT Clinical Summary Patient presents to physical therapy following a R rTSA. Patient demonstrates post-surgical weakness , pain, decreased mobility, abnormal posture, and decreased flexibility that limit their ability to perform activities of daily living and functional movements. Patient will benefit from skilled physical therapy to address the above listed deficits and return to prior level of function. Home exercise program instructed and written handout provided, exercises tolerated well with no adverse effects to note post-session. Patient was educated on importance of adherence to home exercise program. Patient was also educated on anatomy, prognosis, home modalities, and plan of care. Plan of Care Interventions Electrical Stimulation,Hot Pack/Cold Pack,Manual Therapy,Neuro Re-education,Therapeutic Activities, Therapeutic Exercise,Other PT Services Indicated Yes Treatment Frequency and 2x per week 10 visits Duration These treatments will address the objective and functional deficits as defined above. The patient will be advanced safely and appropriately in order for the patient to progress towards his/her prior level of function. Additional exercises will be introduced and as well as a comprehensive home exercise program upon discharge, if needed, ?to ensure carryover of functional gains achieved in the clinic. This treatment plan has been reviewed and agreement upon by the patient.
--- NOTE | 2025-02-07 13:23 | PTOPDC ---
Assessment and note entered by Rock Giordano, PT Evaluation Information Assessment Status Discharge Diagnosis R r TSA ICD-10 Condition Codes (PT) Pain in right shoulder M25.511 Subjective Information Patient status post R rTSA on 12-16-[address] Leyva. Pt doing very well, she has little to no pain, improvements in ROM and functional use of arm. Pt reports continued difficulty with taking off a jacket because it gets stuck but other than that has no ADL concerns. Reported Pain Level Pain Score 0: Self Report Assessment PT Clinical Summary Patient's R shoulder has improved overall as evidenced by advancements in symptoms, mobility, strength, and overall functional use of the extremity. Patient has functional ROM but does have some strength deficits that persist. Patient to discharge from physical therapy this date and continue with updated home exercise program with a focus on building strength as instructed. Patient to contact physical therapist or MD if questions or concerns arise. Plan of Care PT Services Indicated No
== END 2025-02-07 14:12 | disposition home or self-care (01) ==
LOC: ANHGOSHPT 12:30
PROVIDERS: PCP Internal Medicine; Visit Provider Orthopaedic Surgery
DX: Z47.1 Aftercare following joint replacement surgery (principal); Z96.611 Presence of right artificial shoulder joint
CPT/HCPCS: 97110; 97112; 97140; 97161; 97530